=== PATIENT | female | born 1960 | race Caucasian/White ===

== ENCOUNTER → 2018-02-17 | Outpatient (CLI) | payer MEDICAID ==
--- NOTE | 2018-02-17 16:01 | XR ---
EXAMINATION TYPE: XR knee complete LT DATE OF EXAM: 02/17/2018 CLINICAL HISTORY: Left knee pain with no known injury TECHNIQUE: Three views of the left knee are obtained. COMPARISON: None. FINDINGS: There is no acute fracture/dislocation evident in left knee. There is mild medial compartm ent joint space narrowing and small marginal osteophytes of the medial femoral condyle and tibial sharron teau. There is a suspected small suprapatellar joint effusion. The overlying soft tissue appears unr emarkable. IMPRESSION: 1. No acute fracture or dislocation in the left knee. 2. Mild unicompartmental arthrosis of the medial compartment. 2. Suspected small suprapatellar joint effusion.
== END | disposition home or self-care (01) ==
LOC: RADXRMAIN 15:39
PROVIDERS: ATTEND Physician Assistant
DX: M17.12 Unilateral primary osteoarthritis, left knee (principal)

== ENCOUNTER → 2018-03-03 | Outpatient (CLI) | payer MEDICAID ==
--- NOTE | 2018-03-03 09:50 | US ---
EXAMINATION TYPE: US abdomen complete DATE OF EXAM: 03/03/2018 COMPARISON: NONE CLINICAL HISTORY: R74.8 ABN LEVELS OF OTHER SERUM ENZYMES. EXAM MEASUREMENTS: Liver Length: 13.3 cm Gallbladder Wall: Surgically absent CBD: 0.4 cm Spleen: 12.6 cm Right Kidney: 12.2 x 3.8 x 4.9 cm Left Kidney: 12.4 x 5.4 x 5.3 cm Pancreas: partially obscured by bowel gas, portions visualized wnl Liver: mildly heterogeneous Gallbladder: Surgically absent Evidence for sonographic Burrell's sign: no CBD: wnl Spleen: wnl Right Kidney: No hydronephrosis Left Kidney: Inferior pole obscured by bowel gas, Upper IVC: wnl Abd Aorta: wnl No aneurysmal change is seen in visualized aorta. Visualized pancreas is heterogeneous without mass. Evaluation of entire pancreas is suboptimal due to shadowing from overlying bowel gas. Visualized luciana er is heterogeneously hyperechoic without intrahepatic ductal dilatation. Finding likely on basis of diffuse fatty infiltration. Gallbladder is noted surgically absent. Spleen is upper limits of normal in size. IMPRESSION: Slightly heterogeneous hyperechoic appearance of liver is likely on basis of diffuse fatt y infiltration. Underlying hepatocellular disease is not excluded.
== END | disposition home or self-care (01) ==
LOC: RADUSWWP 09:01
PROVIDERS: ATTEND Family Medicine
DX: K76.0 Fatty (change of) liver, not elsewhere classified (principal); R74.8 Abnormal levels of other serum enzymes
CPT/HCPCS: 76700

== ENCOUNTER 2019-03-30 06:36 | Day surgery (SDC) | payer MEDICAID ==
[2019-03-27 13:14] VITALS: BMI 37.1
[~2019-03-30 06:36] MED LIST: ALPRAZolam 0.25 MG TAB PO PRN; ALPRAZolam 0.5 MG TAB PO PRN; NITROGLYCERIN SL TABS 0.4 MG TAB SUBLINGUAL PRN; SODIUM CHLORIDE 0.9% 1,000 ML in EMPTY BAG 1 BAG IV ONE
[2019-03-30] MEDS ORDERED: ASPIRIN 325 MG TAB PO ONE (07:00)
[2019-03-30] MEDS ORDERED: ATORVASTATIN 80 MG TAB PO ONE (07:00)
[2019-03-30 07:24] VITALS: TEMP 98.4
[2019-03-30] MEDS: MIDAZOLAM (PF) 2 MG/2 ML VIAL IV ONE ×2 (08:17→08:23)
[2019-03-30] MEDS ORDERED: LIDOCAINE 1% INJ 10MG/ML (20 ML MDV) SQ ONE (08:23)
[2019-03-30] MEDS ORDERED: amLODIPine 5 MG TAB ONE (08:49)
[2019-03-30] MEDS ORDERED: amLODIPine 5 MG TAB PO ONE (08:51)
[2019-03-30 08:58] LABS: O2 Sat Blood Gas 97.2 %
[2019-03-30 08:58] LABS: O2 Sat Blood Gas 68.5 %
[2019-03-30 08:59] LABS: O2 Sat Blood Gas 70.1 %
[2019-03-30] MEDS ORDERED: IOPAMIDOL-370 100ML BTL INJ ONE (09:00)
[2019-03-30] MEDS ORDERED: SODIUM CHLORIDE 0.9% 1,000 ML IV SCH (09:25)
--- NOTE | 2019-03-30 09:55 | CC ---
CARDIAC CATHETERIZATION REPORT DATE OF SERVICE: 03/30/2019 PROCEDURE: Right and left heart catheterization and coronary angiography. PERFORMED BY: Dr. Sapna Montgomery. Moderate conscious sedation time was 41 minutes. Patient was administered Versed. Oxygen saturation, hemodynamics and EKG were monitored closely. CLINICAL INFORMATION: Mrs. Katerina Crabtree is a 58-year-old lady with a recent diagnosis of aortic stenosis, severe with symptoms of exertional shortness of breath that have worsened recently. It is unclear if she has a bicuspid aortic valve or not because of significant calcification. She has moderate to severe aortic regurgitation and moderate to severe aortic stenosis on echocardiogram, was advised coronary angiography as well as transesophageal echo and brought in for the procedure electively. Risks, benefits, options and rationale were discussed. Patient has an IODINE allergy and she has been appropriately pretreated. PROCEDURE NOTE: Under local anesthesia and strict aseptic precautions, a 6-Estonian introducer was placed in the right femoral artery and 8-Estonian sheath in the right femoral vein. Using a balloon-tipped flotation catheter, I performed right heart catheterization. I obtained thermodilution cardiac output as well as saturations. Subsequently, using standard Chriss catheters, coronary angiography was performed. A pigtail catheter was used to check LV pressure but LV gram was not performed. The sheath was taken out and Angio- Seal used for arterial sheath, manual compression for venous sheath,. FemoStop was applied for 2 hours. Patient tolerated the procedure well without complications. Results were discussed with the patient and family. She has no significant CAD. Normal pressures. Significant aortic stenosis with a peak pullback gradient of 35 mmHg. She will have a TREY and will probably require aortic valve replacement. CARDIAC CATHETERIZATION FINDINGS: The right atrial pressure was 4 mmHg, pulmonary artery pressure was 28/14 with a mean of 20. Right ventricular pressure was 28/4. Pulmonary capillary wedge pressure was 12 mmHg. There was no gradient between left ventricular end-diastolic pressure and wedge pressure. The peak pullback gradient across aortic valve was 35 mmHg. The thermodilution cardiac output was 6.3 L, Nikita cardiac output was 4.5 L, average was 5.4 L. CORONARY ANGIOGRAPHY FINDINGS: RIGHT CORONARY ARTERY: Technically this is a dominant vessel. has no significant disease distally, bifurcates into a good-sized PDA PLV, which have minor irregularities. No significant disease in the right coronary artery. LEFT MAIN CORONARY ARTERY: Very short vessel, free of significant disease that bifurcates into LAD and circumflex. LEFT ANTERIOR DESCENDING CORONARY ARTERY: Good caliber vessel, extends along the anterior wall. No significant disease. Tortuous in the midportion, gives off septal and diagonal branches, runs all the way to the apex. No significant disease in the LAD system. LEFT POSTERIOR CIRCUMFLEX CORONARY ARTERY: This is a good caliber, good distribution vessel, nondominant, gives a single obtuse marginal and then a distal posterolateral branch has minor irregularities, no significant disease. LEFT VENTRICULOGRAM: This was not performed. FINAL IMPRESSION: This patient has normal right-sided pressures. She has severe aortic stenosis with a peak pullback gradient of 35 mmHg across the aortic valve. The thermodilution cardiac output was 6.3 L and Nikita cardiac output was 4.5 L. There is no significant obstructive CAD. She has a right dominant system. RECOMMENDATION: Patient will have a transesophageal echo and then will require elective aortic valve replacement. I would like to see whether she has a bicuspid aortic valve or not since this was not discernible on the transthoracic echo. Findings were discussed with the patient and family and I expect she will be discharged later on today. MMODL / IJN: [id number] /
[2019-03-30] MEDS ORDERED: fentaNYL (PF) 50 MCG/ML 2 ML AMP ONE (12:07)
[2019-03-30] MEDS ORDERED: IV FLUID CONTINUATION 300 ML IV ONE (12:30)
[2019-03-30] MEDS ORDERED: BENZOCAINE SPRAY 1 CAN MUCOUS MEM ONE ×2 (12:31)
[2019-03-30] MEDS ORDERED: fentaNYL (PF) 50 MCG/ML 2 ML AMP IV ONE (12:51)
[2019-03-30] MEDS ORDERED: MIDAZOLAM (PF) 2 MG/2 ML VIAL IV ONE ×2 (12:51→12:54)
--- NOTE | 2019-03-30 13:37 | ECHOT ---
TRANSESOPHAGEAL ECHOCARDIOGRAM Mrs. Crabtree is a 58-year-old female who underwent transesophageal echocardiogram to rule out significant aortic stenosis. The patient was given intravenous sedation with Versed and fentanyl and transesophageal echocardiogram was performed without any complications. FINDINGS: The left ventricular chamber is normal in size with mild degree of left ventricular hypertrophy and normal left ventricular systolic function. Mitral valve morphology is normal. Mild mitral regurgitation is noted. The aortic valve is sclerotic and calcified and it is tricuspid. The aortic valve area is calculated in the range of 1 square centimeter suggestive of severe aortic stenosis. There is a moderate degree of aortic regurgitation noted. There is a mild degree of tricuspid regurgitation noted. Left atrium is normal in size. There is no evidence of thrombus in the left atrial appendage. Pulmonary vein flow is normal. Interatrial septum is intact. IMPRESSION: 1. The aortic valve is sclerotic and calcified and is tricuspid. Aortic valve area is calculated in the range of 1 square centimeter suggestive of severe aortic stenosis. 2. There is mild to moderate aortic regurgitation noted. 3. Mild mitral regurgitation is noted. 4. Left ventricular systolic function is normal. 5. There is no evidence of thrombus in left atrium or atrial appendage. 6. Pulmonary vein systolic flow is normal. MMODL / IJN: [id number] /
[2019-03-30 13:49] VITALS: BP 147/65; PULSE 84; RESP 16
== END 2019-03-30 14:37 | disposition home or self-care (01) ==
LOC: CATHCVL 06:36
PROVIDERS: ATTEND Internal Medicine Interventional Cardiology
DX: I08.3 Combined rheumatic disorders of mitral, aortic and tricuspid valves (principal); E89.0 Postprocedural hypothyroidism; E66.9 Obesity, unspecified; F17.210 Nicotine dependence, cigarettes, uncomplicated; Z79.890 Hormone replacement therapy; Z79.899 Other long term (current) drug therapy; Z91.048 Other nonmedicinal substance allergy status; Z68.37 Body mass index [BMI] 37.0-37.9, adult
CPT/HCPCS: 93312; 93460; 85018; 82810; C1760; C1769 ×3; C1894 ×2; J2001; J3010; Q9967; J2250; 93320; 93325

== ENCOUNTER → 2019-04-24 | Outpatient (CLI) | payer MEDICAID ==
[2019-04-24 09:58] LABS: Anisocytosis Slight; HCT 37.9 % (34.0-46.0); MCH 27.3 pg (25.0-35.0); MCHC 31.6 g/dL (31.0-37.0); MCV 86.6 fL (80.0-100.0); Mean Platelet Volume 7.1; Platelet Count 139 k/uL (150-450); RBC 4.38 m/uL (3.80-5.40); RDW 16.7 % (11.5-15.5); WBC 3.8 k/uL (3.8-10.6)
[2019-04-24 10:05] LABS: ALT 51 U/L (9-52); AST 81 U/L (14-36); African American GFR (CKD) >90 (>60 ml/min/1.73 sqM); Albumin 4.1 g/dL (3.5-5.0); Alkaline Phosphatase 95 U/L (38-126); Anion Gap 10 mmol/L; Blood Urea Nitrogen 15 mg/dL (7-17); Carbon Dioxide 23 mmol/L (22-30); Chloride 108 mmol/L (98-107); Cholesterol 160 mg/dL (<200); Glucose 133 mg/dL (74-99); HDL Cholesterol 31 mg/dL (40-60); LDL Cholesterol,Calculated 108 mg/dL (0-99); Magnesium 1.7 mg/dL (1.6-2.3); Potassium 4.1 mmol/L (3.5-5.1); Sodium 141 mmol/L (137-145); Total Bilirubin 0.8 mg/dL (0.2-1.3); Total Protein 8.3 g/dL (6.3-8.2); Triglycerides 103 mg/dL (<150)
[2019-04-24 10:17] LABS: INR 1.1 (<1.2); Partial Thromboplastin Time 27.6 sec (22.0-30.0); Prothrombin Time 11.6 sec (9.0-12.0)
[2019-04-24 10:25] LABS: Appearance,Urine Clear (Clear); Bacteria,Urine Rare /hpf; Bilirubin,Urine Negative (Negative); Blood,Urine Small (Negative); Color,Urine Yellow; Glucose,Urine (UA) Negative (Negative); Ketones,Urine Negative (Negative); Leukocyte Esterase,Urine Negative (Negative); Mucus,Urine Rare /hpf; Nitrite,Urine Negative (Negative); Protein,Urine Negative (Negative); RBC,Urine 6 /hpf (0-5); Specific Gravity,Urine 1.021 (1.001-1.035); Squamous Epithelial Cell,Urine 2 /hpf (0-4); WBC,Urine 2 /hpf (0-5)
[2019-04-24 11:53] LABS: T4, Free (Free Thyroxine) 1.09 ng/dL (0.78-2.19)
--- NOTE | 2019-04-24 14:52 | US ---
EXAMINATION TYPE: US carotid duplex BILAT DATE OF EXAM: 04/24/2019 COMPARISON: NONE CLINICAL HISTORY: 58-year-old female OPEN HEART. Pre heart surgery. TECHNIQUE: Carotid duplex ultrasound examination. In direct Doppler criteria was utilized. FINDINGS: EXAM MEASUREMENTS: RIGHT: Peak Systolic Velocity (PSV) cm/sec ----- Right CCA: 121.1 ----- Right ICA: 139.5 ----- Right ECA: 143.7 ICA/CCA ratio: 1.2 RIGHT: End Diastole cm/sec ----- Right CCA: 25.7 ----- Right ICA: 25.0 ----- Right ECA: 20.9 LEFT: Peak Systolic Velocity (PSV) cm/sec ----- Left CCA: 139.5 ----- Left ICA: 124.3 ----- Left ECA: 333.9 ICA/CCA ratio: 0.9 LEFT: End Diastole cm/sec ----- Left CCA: 40.7 ----- Left ICA: 38.6 ----- Left ECA: 25.7 VERTEBRALS (direction of flow): Right Vertebral: Antegrade Left Vertebral: Antegrade Rhythm: Normal Elevated velocities in bilateral ECA. Minimal atherosclerotic calcification at the bilateral carotid bifurcations. IMPRESSION: 1. Slightly elevated velocities in the proximal right ICA likely secondary to turbulent flow. Other D oppler criteria for the right ICA are within the normal range. Hemodynamically significant stenosis appreciated in either ICA. 2. Elevated velocities in the left greater than right ECA suggest proximal ECA stenoses. Criteria for Assigning % of Stenosis / Diameter reduction (Estimation based on the indirect measurements of the internal carotid artery velocities (ICA PSV). 1. Normal (no stenosis)=ICA PSV < 125 cm/s: ratio < 2.0: ICA EDV<40 cm/s. 2. Less than 50% stenosis=ICA PSV < 125 cm/s: ratio < 2.0: ICA EDV<40 cm/s. 3. 50 to 69% stenosis=ICA PSV of 125 to 230 cm/s: ration 2.0 ? 4.0: ICA EDV 40-100 cm/s. 4. Greater than 70% stenosis to near occlusion= ICA PSV > 230 cm/s: ratio > 4.0: ICA EDV > 100 cm/s. 5. Near occlusion= ICA PSV velocities may be low or undetectable: variable ratio and ICA EDV. 6. Total occlusion=unable to detect flow.
--- NOTE | 2019-04-24 15:25 | XR ---
EXAMINATION TYPE: XR chest 2V DATE OF EXAM: 04/24/2019 COMPARISON: None HISTORY: 58-year-old female presurgical evaluation before open heart surgery TECHNIQUE: Frontal and lateral views FINDINGS: Heart normal size. Mild interstitial prominence has a chronic appearance. No consolidation or pleural effusion. Aorta and pulmonary vasculature within normal limits. Mild endplate spondylosis throughout the thoracic spine. IMPRESSION: Chronic appearing changes without acute cardiopulmonary process.
[2019-04-24 16:43] LABS: Hemoglobin A1C 5.5 % (4.0-6.0)
[2019-04-24 17:07] LABS: Hepatitis A Antibody IgM Non-Reactive (Non-Reactive); Hepatitis B Core IgM Non-Reactive (Non-Reactive)
--- NOTE | 2019-04-25 09:47 | P.VSCSTY ---
Greater Saphenous Vein Mapping This is bilateral lower extremity greater saphenous vein mapping. Date of service: 04/24/2019 Vein quality and ultrasound appearance: No obvious endoluminal thrombus or wall changes are seen. Vein size groin right : 5.0 x 4.0 groin left: 7.9 x 7.2 High thigh right: 5.1 x 4.0 high thigh left: 5.4 x 4.4 Mid thigh right: 1.7 x 1.2 mid thigh left: 5.4 x 3.8 Above-knee right: 2.0 x 1.4 above-knee left: 5.5 x 4.3 Below knee right: 2.7 x 2.1 below-knee left: 4.0 x 3.9 Mid calf right: 3.1 x 2.1 mid calf left: 3.6 x 2.5 Ankle right: 3.0 x 2.1 ankle left: 3.5 x 2.1 Impression: Usable greater saphenous vein bilaterally. The left is much more consistent on the right. There are a couple of areas on the right that are probably still to small for use as conduit..
== END | disposition home or self-care (01) ==
LOC: LABPAT 09:10
PROVIDERS: ATTEND Thoracic Surgery (Cardiothoracic Vascular Surgery)
DX: I35.0 Nonrheumatic aortic (valve) stenosis (principal); E07.9 Disorder of thyroid, unspecified; I10 Essential (primary) hypertension; R06.02 Shortness of breath; R16.0 Hepatomegaly, not elsewhere classified; Z79.01 Long term (current) use of anticoagulants
CPT/HCPCS: 71046; 80053; 80061; 80074; 81001; 83036; 83735; 84439; 84443; 85027; 85610; 85730; 87070; 87086; 93880; 93970; 94150

== ENCOUNTER 2019-04-30 05:47 | Inpatient (IN) | payer MEDICAID ==
--- NOTE | 2019-04-24 11:43 | P.PN ---
Progress Note - Text Progress Note Date: 04/24/19 5 m walk test was completed with the patient. Time 1: 3.33 seconds, time 2: 3.36 seconds, time 3:2.91 seconds. STS risk score has been calculated in discussed with the patient by Dr. Pipo Hines.
[~2019-04-30 05:47] MED LIST changes: +ALBUMIN HUMAN 25% 50 ML IV ONE; +ALBUMIN HUMAN 5% 250 ML IVPB ONE; -ALPRAZolam 0.25 MG TAB PO PRN; -ALPRAZolam 0.5 MG TAB PO PRN; +ASPIRIN 325 MG TAB PO ONE; +ATORVASTATIN 10 MG TAB PO ONE; +CALCIUM CHLORIDE 100 MG/ML 10 ML SYRINGE IV ONE; +CHLORHEXIDINE GLUCONATE 15 ML CUP MUCOUS MEM ONE; +CLEVIDIPINE BUTYRATE 25 MG in EMPTY BAG 1 BAG IV ONE; +DEXTROSE 5% IN WATER 1,000 ML with POTASSIUM CHLORIDE 110 MEQ, MAGNESIUM SULFATE 16 MEQ... IV ONE; +DEXTROSE 5% IN WATER 1,000 ML with POTASSIUM CHLORIDE 25 MEQ, SODIUM CHLORIDE 2.5MEQ/ML... IRRIGATION ONE; +HEPARIN SODIUM 1,000 UN/ML (10ML VL) IV ONE; +HEPARIN SODIUM,PORCINE 5,000 UNIT in SODIUM CHLORIDE 0.9% 500 ML 500 ML IV ONE; +INSULIN REGULAR 100 UNIT in SODIUM CHLORIDE 0.9% 100 ML IV ONE; +LACTATED RINGERS 1,000 ML IV ONE; +MAGNESIUM SULFATE MG 500 MG/ML IV ONE; +MANNITOL 25% 12.5 GM/50 ML VIAL IV ONE; +METOPROLOL TARTRATE 12.5 MG TAB PO ONE; +MUPIROCIN 2% OINT 22 GM TUBE NASAL ONE; +NITROGLYCERIN SL TABS 0.4 MG TAB SUBLINGUAL ONE; -NITROGLYCERIN SL TABS 0.4 MG TAB SUBLINGUAL PRN; +NITROGLYCERIN-D5W PMX 25 MG/250 ML BTL IV ONE; +NOREPINEPHRINE 4 MG in SODIUM CHLORIDE 0.9% 250 ML IV ONE; +PAPAVERINE 360 MG in SODIUM CHLORIDE 0.9% 90 ML IV ONE; +PHENYLEPHRINE 10 MG/ML VIAL IV ONE; +PHENYLEPHRINE 40 MG in SODIUM CHLORIDE 0.9% 250 ML IV ONE; +PROPOFOL 1,000 MG/100 ML VIAL IV ONE; +PROTAMINE SULFATE 10 MG/ML 25 ML VIAL IV ONE; +PROTAMINE SULFATE 250 MG in EMPTY BAG 1 BAG IV ONE; +SODIUM BICARB 8.4% 50 ML SYR (1 MEQ/ML) IV ONE; +SODIUM CHLORIDE 0.9% 1,000 ML IV ONE; -SODIUM CHLORIDE 0.9% 1,000 ML in EMPTY BAG 1 BAG IV ONE; +TRANEXAMIC ACID 2,000 MG in SODIUM CHLORIDE 0.9% 80 ML IV ONE; +VANCOMYCIN 1,000 MG VIAL MISCELLANE ONE; +ceFAZolin 2,000 MG in SODIUM CHLORIDE 0.9% 30 ML IVPB ONE
[2019-04-30] MEDS ORDERED: LIDOCAINE 1% 20 ML VIAL (10MG/ML) FOR IV START INTRADERMA ONE (06:15)
[2019-04-30] MEDS ORDERED: PROTAMINE SULFATE 10 MG/ML 25 ML VIAL IV ONE (08:06)
[2019-04-30] MEDS ORDERED: fentaNYL (PF) 50 MCG/ML 50 ML VIAL ONE (08:06)
[2019-04-30] MEDS ORDERED: PROPOFOL 10 MG/ML 20 ML VIAL IV ONE (08:06)
[2019-04-30] MEDS ORDERED: SODIUM CHLORIDE 0.9% 250 ML BAG ONE (08:06)
[2019-04-30] MEDS ORDERED: TRANEXAMIC ACID 1,000 MG/10 ML VIAL ONE (08:06)
[2019-04-30] MEDS ORDERED: VECURONIUM 10 MG VIAL IV ONE (08:06)
[2019-04-30] MEDS ORDERED: MAGNESIUM SULFATE 4 MEQ/ML 10ML VIAL ONE (08:06)
[2019-04-30] MEDS ORDERED: HEPARIN SODIUM,PORCINE 10,000 UNIT/ML 1 ML VIAL ONE (08:06)
[2019-04-30] MEDS ORDERED: SODIUM CHLORIDE 0.9% IRRIG 1,000 ML BTL IRRIGATION ONE (08:06)
[2019-04-30] MEDS ORDERED: MIDAZOLAM 2 MG/2 ML VIAL ONE (08:06)
[2019-04-30] MEDS ORDERED: fentaNYL (PF) 50 MCG/ML 2 ML AMP ONE (08:06)
[2019-04-30] MEDS ORDERED: LIDOCAINE 2% SYG (PF) 100 MG/5 ML ONE (08:06)
[2019-04-30] MEDS ORDERED: ELECTROLYTE-R (PH 7.4) 1,000 ML IV.SOLN IV ONE (08:06)
[2019-04-30 09:10] LABS: ABG Base Excess 0.9 mmol/L; ABG Glucose Whole Blood 105 mg/dL (75-99); ABG HCO3 25 mmol/L (21-25); ABG Hematocrit 31 % (34.0-46.0); ABG Ionized Calcium 4.6 mg/dL (4.5-5.3); ABG Lactic Acid Whole Blood 1.6 mmol/L (0.5-1.6); ABG Oxygen Saturation 99.8 % (94-97); ABG PCO2 38 mmHg (35-45); ABG PH 7.43 (7.35-7.45); ABG PO2 226 mmHg (83-108); ABG Sodium Whole Blood 140 mmol/L (135-146); ABG TCO2 26 mmol/L (19-24)
[2019-04-30 09:57] LABS: ABG Base Excess 0.8 mmol/L; ABG Glucose Whole Blood 107 mg/dL (75-99); ABG HCO3 25 mmol/L (21-25); ABG Hematocrit 30 % (34.0-46.0); ABG Ionized Calcium 4.5 mg/dL (4.5-5.3); ABG Oxygen Saturation 99.9 % (94-97); ABG PCO2 38 mmHg (35-45); ABG PH 7.43 (7.35-7.45); ABG PO2 261 mmHg (83-108); ABG Potassium Whole Blood 4.5 mmol/L (3.4-4.5); ABG Sodium Whole Blood 139 mmol/L (135-146); ABG TCO2 26 mmol/L (19-24)
[2019-04-30 10:28] LABS: ABG Base Excess -0.7 mmol/L; ABG Glucose Whole Blood 178 mg/dL (75-99); ABG HCO3 24 mmol/L (21-25); ABG Hematocrit 26 % (34.0-46.0); ABG Ionized Calcium 4.2 mg/dL (4.5-5.3); ABG Oxygen Saturation 99.8 % (94-97); ABG PCO2 41 mmHg (35-45); ABG PH 7.38 (7.35-7.45); ABG PO2 260 mmHg (83-108); ABG Potassium Whole Blood 5.3 mmol/L (3.4-4.5); ABG Sodium Whole Blood 134 mmol/L (135-146); ABG TCO2 26 mmol/L (19-24)
[2019-04-30 11:11] LABS: ABG Glucose Whole Blood 176 mg/dL (75-99); ABG HCO3 23 mmol/L (21-25); ABG Hematocrit 25 % (34.0-46.0); ABG Ionized Calcium 4.2 mg/dL (4.5-5.3); ABG PCO2 42 mmHg (35-45); ABG PH 7.36 (7.35-7.45); ABG PO2 360 mmHg (83-108); ABG Potassium Whole Blood 5.1 mmol/L (3.4-4.5); ABG Sodium Whole Blood 135 mmol/L (135-146); ABG TCO2 25 mmol/L (19-24)
[2019-04-30 12:01] LABS: ABG Base Excess -1.9 mmol/L; ABG Glucose Whole Blood 143 mg/dL (75-99); ABG HCO3 24 mmol/L (21-25); ABG Hematocrit 29 % (34.0-46.0); ABG Ionized Calcium 4.6 mg/dL (4.5-5.3); ABG Oxygen Saturation 99.7 % (94-97); ABG PCO2 44 mmHg (35-45); ABG PH 7.35 (7.35-7.45); ABG PO2 214 mmHg (83-108); ABG Sodium Whole Blood 138 mmol/L (135-146); ABG TCO2 25 mmol/L (19-24)
[2019-04-30 12:15] LABS: ABG Lactic Acid Whole Blood 2.5 mmol/L (0.5-1.6)
[2019-04-30 12:16] LABS: ABG Lactic Acid Whole Blood 2.3 mmol/L (0.5-1.6)
[2019-04-30 12:17] LABS: ABG Lactic Acid Whole Blood 3.1 mmol/L (0.5-1.6)
[2019-04-30 12:18] LABS: ABG Lactic Acid Whole Blood 2.4 mmol/L (0.5-1.6)
[2019-04-30] MEDS ORDERED: ONDANSETRON 4 MG/2 ML VIAL IVP PRN (12:36)
[2019-04-30] MEDS ORDERED: BENZOCAINE/MENTHOL LOZENG 1 EACH LOZENGE MUCOUS MEM PRN (12:36)
[2019-04-30] MEDS ORDERED: METOCLOPRAMIDE 5 MG/ML 2 ML VIAL IVP PRN (12:36)
[2019-04-30] MEDS ORDERED: AMIODARONE 300 MG in DEXTROSE 5% IN WATER 250 ML IV PRN ×2 (12:36)
[2019-04-30] MEDS ORDERED: Magnesium Replacement Protocol 1 EACH MISC MISCELLANE PRN (12:36)
[2019-04-30] MEDS ORDERED: PROPOFOL 1,000 MG in EMPTY BAG 1 BAG IV SCH (12:36)
[2019-04-30] MEDS ORDERED: AMIODARONE 360 MG in DEXTROSE 5% IN WATER 200 ML IV PRN ×2 (12:36)
[2019-04-30] MEDS ORDERED: DEXTROSE 5% IN WATER 100 ML with AMIODARONE 150 MG IV PRN (12:36)
[2019-04-30] MEDS ORDERED: Phosphorus Replacement Protoco 1 EACH MISC MISCELLANE PRN (12:36)
[2019-04-30] MEDS ORDERED: IPRATROPIUM-ALBUTEROL 3 ML NEB INHALATION PRN (12:36)
[2019-04-30] MEDS ORDERED: CALCIUM GLUCONATE 2 GM in SODIUM CHLORIDE 0.9% 100 ML IVPB PRN (12:36)
[2019-04-30] MEDS ORDERED: Potassium Replacement Protocol 1 EACH MISC MISCELLANE PRN (12:36)
[2019-04-30] MEDS ORDERED: LACTATED RINGERS 1,000 ML IV SCH (12:36)
[2019-04-30 12:41] LABS: Glucose,Whole Blood 114 mg/dL (75-99)
[2019-04-30 12:56] LABS: INR 1.4 (<1.2); Partial Thromboplastin Time 29.7 sec (22.0-30.0); Prothrombin Time 14.1 sec (9.0-12.0)
[2019-04-30 13:05] LABS: ABG Base Excess 0.3 mmol/L; ABG HCO3 27 mmol/L (21-25); ABG PCO2 60 mmHg (35-45); ABG PH 7.27 (7.35-7.45); ABG PO2 >400 mmHg (83-108); ABG TCO2 29 mmol/L (19-24); Allen Test Performed? Yes
[2019-04-30 13:06] LABS: Ionized Calcium 4.9 mg/dL (4.5-5.3)
[2019-04-30] MEDS: CLEVIDIPINE BUTYRATE 25 MG in EMPTY BAG 1 BAG IV SCH ×2 (13:08→16:25)
[2019-04-30 13:13] LABS: ALT 86 U/L (9-52); AST 155 U/L (14-36); African American GFR (CKD) >90 (>60 ml/min/1.73 sqM); Albumin 2.7 g/dL (3.5-5.0); Alkaline Phosphatase 49 U/L (38-126); Anion Gap 6 mmol/L; Blood Urea Nitrogen 11 mg/dL (7-17); Calcium 8.4 mg/dL (8.4-10.2); Carbon Dioxide 26 mmol/L (22-30); Chloride 106 mmol/L (98-107); Glucose 115 mg/dL (74-99); Magnesium 2.3 mg/dL (1.6-2.3); Sodium 138 mmol/L (137-145); Total Bilirubin 0.8 mg/dL (0.2-1.3); Total Protein 5.4 g/dL (6.3-8.2)
--- NOTE | 2019-04-30 13:15 | OP ---
OPERATIVE REPORT DATE OF THE OPERATION: 04/30/2019 ATTENDING SURGEON: Dr. Pipo Hines. ASSISTANTS: 1. JACKELYN Mcginnis. 2. Alon Thomas NP. 3. Bennett. PREOPERATIVE DIAGNOSIS: Critical aortic stenosis. POSTOPERATIVE DIAGNOSIS: Critical aortic stenosis PROCEDURE: Aortic valve replacement with a #23 mm Simon Inspiris bioprosthetic aortic valve, clip ligation of the left atrial appendage with a #35 mm AtriClip and intraoperative TREY. ANESTHESIA: General. BLOOD LOSS: 500 mL. SUMMARY: Patient brought to the operative placed in supine position. From insertion of general tracheal anesthetic, placed in the [place]-Fredrick catheter arterial line, adequate IV access, Vizcarra catheter, patient carefully prepped and draped in a sterile fashion using chlorhexidine paint and sterile towels. A midline incision in the chest made, sternum divided, pericardium was opened. Heart size was mildly enlarged. Aorta was soft but did have a few calcific plaques present. Patient was then heparinized to an AST of greater than 4 and aorta was carefully cannulated and right atrium was cannulated with a venous cannula, integrated retrograde cardioplegic catheters was positioned in the ascending aorta and the coronary sinus. Patient was placed on bypass, cross-clamp placed, heart arrested with 1 L of antegrade followed by 500 mL retrograde cardioplegia. Retrograde cardioplegia was delivered 300-500 mL at end of each 20 minute interval. First, the left atrial appendage was measured. A 35 mm AtriClip was secured at the base of obliterating the left atrial appendage. A transverse aortotomy incision was made 2 cm distal to the takeoff of the right coronary artery. A handheld retractor was placed. The aortic valve was trileaflet, extremely heavily calcified. There was some calcium plaques present on the root. Care was taken to expose and remove some of these plaques that were loosened. The leaflets were then excised. The anulus debrided and was irrigated out copiously with 2-3 L of cold saline. It sized to a 23 mm Simon Inspiris bioprosthetic aortic valve. The valve was prepared in usual fashion. A 2-0 Tycron pledgetted sutures were placed circumferentially ventricularly based. These were then passed through the sewing cuff of the valve. The valve was seated and seated well. All sutures were then secured and tied and cut using the core knot ligature system device. At this point, once the valve was seated and seated well, the aortotomy incision was closed in a double layered pledgeted 4-0 Prolene vertical mattress followed by an [id number] stitch on both sides. Patient was placed head down, complete de-airing maneuvers performed 3 times. One liter of warm blood retrograde cardioplegia was run, cross-clamp was then removed. Once in sinus rhythm, patient was brought off bypass, came off bypass uneventfully with good hemodynamics, protamine delivered, patient decannulated, ventricular pacing wires were placed, mediastinal right pleural chest tubes were placed. At this point, the sternum was closed with seven #6 sternal wires. Skin and subcutaneous tissue, fascia closed in 3 layers. No complications. Patient tolerated the procedure well and was taken to the cardiovascular intensive care unit in stable condition. MMCHEL / NICOLE: [id number] /
--- NOTE | 2019-04-30 13:15 | XR ---
EXAMINATION TYPE: XR chest 1V portable DATE OF EXAM: 04/30/2019 COMPARISON: Prior chest x-ray 04/24/2019 HISTORY: Postop cardiac surgery TECHNIQUE: Single frontal view of the chest is obtained. FINDINGS: Patient is post median sternotomy, aortic valve replacement, atrial appendage clipping. En dotracheal tube, orogastric tube, median sternal drain, right jugular central venous catheter, right chest tube, epicardial leads are overlying appropriate positions. There is no evident pneumothorax or pleural effusion. Heart size may be accentuated by rotation. Surgical clips present in the right upp er quadrant. IMPRESSION: Satisfactory postoperative chest x-ray.
[2019-04-30 13:17] LABS: Anisocytosis Slight; Basophils % (A) 0 %; Eosinophils # (A) 0.1 k/uL (0-0.7); Eosinophils % (A) 1 %; HCT 28.8 % (34.0-46.0); Lymphocytes # (A) 1.1 k/uL (1.0-4.8); Lymphocytes % (A) 22 %; MCHC 32.5 g/dL (31.0-37.0); MCV 89.2 fL (80.0-100.0); Mean Platelet Volume 8.2; Monocytes # (A) 0.2 k/uL (0-1.0); Monocytes % (A) 4 %; Neutrophils # (A) 3.8 k/uL (1.3-7.7); Neutrophils % (A) 72 %; RBC 3.23 m/uL (3.80-5.40); RDW 16.3 % (11.5-15.5); WBC 5.3 k/uL (3.8-10.6)
[2019-04-30] MEDS ORDERED: hydrALAZINE HCL 20 MG/ML 1 ML VIAL IVP PRN (13:17)
[2019-04-30 13:19] LABS: Glucose,Whole Blood 100 mg/dL (75-99)
[2019-04-30 13:29] LABS: HGB 9.4 gm/dL (11.4-16.0)
[2019-04-30] MEDS: SODIUM CHLORIDE 0.9% 1,000 ML IV SCH (13:30)
--- NOTE | 2019-04-30 13:58 | P.CRDCN ---
History of Present Illness Consult date: 04/30/19 Requesting physician: Pipo Hines Reason for Consult (text): Status post aortic valve replacement Chief complaint: Aortic stenosis/status post aortic valve replacement History of present illness: This is a 58-year-old female with known history of hypertension, nicotine dependence, who is status post aortic valve replacement with a #23 mm Simon Inspiris bioprosthetic aortic valve, and clip ligation of the left atrial appendage. Patient was seen and examined in the intensive care unit, the back from OR approximately one half hour ago. Chest x-ray showed satisfactory postoperative chest x-ray. Chest tube is draining appropriately, Vizcarra catheter in place and patient is putting out adequate amounts of urine. Blood pressure 127/60 with a heart rate in the 70s, afebrile. White blood cell count 5.3, hemoglobin 9.4, sodium 138, potassium 4.0, BUN 11 and creatinine 0.7. AST 155 ALT 86 total protein 5.4 albumin 2.7. Currently in a normal sinus rhythm on the monitor. Past Medical History Past Medical History: Chest Pain / Angina, Hypertension, Liver Disease, Thyroid Disorder Additional Past Medical History / Comment(s): SOB, palpitations, heart murmur, enlarged/fatty liver, anemia History of Any Multi-Drug Resistant Organisms: None Reported Past Surgical History: Appendectomy, Cholecystectomy, Heart Catheterization, Orthopedic Surgery, Tubal Ligation Additional Past Surgical History / Comment(s): TREY,thyroidectomy, bunionectomy rt foot Past Anesthesia/Blood Transfusion Reactions: Postoperative Nausea & Vomiting (PONV) Additional Past Anesthesia/Blood Transfusion Reaction / Comment(s): no hx blood transfusion Smoking Status: Former smoker - Past Family History Mother Family Medical History: No Reported History Medications and Allergies Home Medications Medication Instructions Recorded Confirmed Type Cholecalciferol (Vitamin D3) 2,000 unit PO DAILY 03/27/19 04/30/19 History [Vitamin D3] Citalopram Hydrobromide [CeleXA] 40 mg PO QAM 03/27/19 04/30/19 History Famotidine [Pepcid] 20 mg PO BID 03/27/19 04/30/19 History Ferrous Sulfate [Iron] 325 mg PO BID 03/27/19 04/30/19 History Levothyroxine Sodium [Synthroid] 125 mcg PO QAM 03/27/19 04/30/19 History HYDROcodone/APAP 5-325MG [[place] 1 tab PO Q6HR PRN 04/24/19 04/30/19 History 5-325] amLODIPine [Norvasc] 5 mg PO HS 04/24/19 04/30/19 History Aspirin 325 tab PO DAILY 04/30/19 04/30/19 History Allergies Allergy/AdvReac Type Severity Reaction Status Date / Time Iodinated Contrast- Oral and Allergy Severe Vomiting/ra Verified 04/30/19 13:03 IV Dye sh/itching latex Allergy Itching/queta Verified 04/30/19 13:03 h adhesive tape Allergy Itching/queta Uncoded 03/27/19 13:15 h Physical Exam Vitals: Vital Signs Temp Pulse Resp BP BP Pulse Ox 04/30/19 06:05 97.1 F L 75 16 127/62 127/67 97 Intake and Output 04/29/19 04/30/19 04/30/19 22:59 06:59 14:59 Intake Total 100 31 Output Total 2400 Balance 100 -2369 Intake: IV 100 31 Output: Urine 400 Estimated Blood Loss 2000 HEAD: Normocephalic/atraumatic. EYES: Normal reaction of pupils, equal size. Conjunctiva pink, sclera white. NOSE: Clear with pink turbinates. THROAT: No erythema or exudates. NECK: No masses, no JVD, no thyroid enlargement, no adenopathy. CHEST: No chest wall deformity. Symmetrical expansion. Midsternal incision is clean dry and intact, covered with surgical dressing, chest tubes with small sonya unt of serosanguineous output in the [place], with no air leak LUNGS: Equal air entry with no crackles, wheeze, rhonchi or dullness, anteriorly. CVS: Regular rate and rhythm, normal S1 and S2, no gallops, no murmurs, no rubs ABDOMEN: Soft, nontender. No hepatosplenomegaly, normal bowel sounds, no guarding or rigidity. EXTREMITIES: No clubbing, no edema, no cyanosis, 2+ pulses and upper and lower extremities. MUSCULOSKELETAL: Muscle strength and tone normal. SPINE: No scoliosis or deformity SKIN: No rashes CENTRAL NERVOUS SYSTEM: Sedated, intubated No focal deficits, tone is normal in all 4 extremities. Results 04/30/19 12:39 04/30/19 12:39 Cardiac Enzymes 04/30/19 Range/Units 12:39 AST 155 H (14-36) U/L Coagulation 04/30/19 Range/Units 12:39 PT 14.1 H (9.0-12.0) sec APTT 29.7 (22.0-30.0) sec CBC 04/30/19 Range/Units 12:39 WBC 5.3 (3.8-10.6) k/uL RBC 3.23 L (3.80-5.40) m/uL Hgb 9.4 L D (11.4-16.0) gm/dL Hct 28.8 L (34.0-46.0) % Comprehensive Metabolic Panel 04/30/19 Range/Units 12:39 Sodium 138 (137-145) mmol/L Potassium 4.0 (3.5-5.1) mmol/L Chloride 106 (98-107) mmol/L Carbon Dioxide 26 (22-30) mmol/L BUN 11 (7-17) mg/dL Creatinine 0.71 (0.52-1.04) mg/dL Glucose 115 H (74-99) mg/dL Calcium 8.4 (8.4-10.2) mg/dL AST 155 H (14-36) U/L ALT 86 H (9-52) U/L Alkaline Phosphatase 49 (38-126) U/L Total Protein 5.4 L (6.3-8.2) g/dL Albumin 2.7 L (3.5-5.0) g/dL Current Medications Generic Name Dose Route Start Last Admin Trade Name Freq PRN Reason Stop Dose Admin Hydrocodone Bitart/Acetaminophen 2 each 05/01/19 00:18 [place] 5-325 PO Q4HR PRN Severe Pain Hydrocodone Bitart/Acetaminophen 1 each 05/01/19 00:18 [place] 5-325 PO Q4HR PRN Moderate Pain Albuterol/Ipratropium 3 ml 04/30/19 12:36 Duoneb 0.5 Mg-3 Mg/3 Ml Soln INHALATION RT-Q2H PRN Shortness Of Breath Or Wheezing Albuterol/Ipratropium 3 ml 04/30/19 16:00 Duoneb 0.5 Mg-3 Mg/3 Ml Soln INHALATION 05/01/19 00:01 RT-Q4H LATRELL Albuterol/Ipratropium 3 ml 05/01/19 08:00 Duoneb 0.5 Mg-3 Mg/3 Ml Soln INHALATION RT-QID [facility] Aspirin 325 mg 05/01/19 09:00 Aspirin PO DAILY [facility] Benzocaine/Menthol 1 each 04/30/19 12:36 Cepacol Lozenge MUCOUS MEM Q2H PRN Sore Throat Bisacodyl 10 mg 05/01/19 09:00 Dulcolax RECTAL DAILY PRN Constipation Cholecalciferol 2,000 unit 05/01/19 09:00 Vitamin D3 (25 Mcg = 1000 Iu) PO DAILY [facility] Citalopram Hydrobromide 40 mg 05/01/19 09:00 Celexa PO QAM [facility] Clopidogrel Bisulfate 75 mg 05/01/19 09:00 Plavix PO DAILY [facility] Ferrous Sulfate 325 mg 04/30/19 21:00 Feosol PO BID [facility] Heparin Sodium (Porcine) 5,000 unit 04/30/19 20:00 Heparin SQ Q8H [facility] Hydralazine HCl 10 mg 04/30/19 13:17 Apresoline IVP Q4HR PRN Blood Pressure - High Acetaminophen 1,000 mg/ IV 100 mls @ 400 mls/hr 04/30/19 18:00 Solution IVPB 05/01/19 00:14 Q6HR [facility] Albumin Human 250 ml/ IV 250 mls @ 250 mls/hr 04/30/19 12:36 Solution IVPB 05/02/19 12:37 Q1HR PRN For Volume Amiodarone HCl 150 mg/ 103 mls @ 618 mls/hr 04/30/19 12:36 Dextrose/Water IV .Q10M PRN A.FIB/FLUTTER Protocol Amiodarone HCl 360 mg/ 200 mls @ 33.333 mls/hr 04/30/19 12:36 Dextrose/Water IV .Q6H PRN A.FIB/FLUTTER Protocol 1 MG/MIN Amiodarone HCl 300 mg/ 250 mls @ 25 mls/hr 04/30/19 12:36 Dextrose/Water IV .Q10H PRN A.FIB/FLUTTER Protocol 0.5 MG/MIN Calcium Gluconate 2 gm/ Sodium 120 mls @ 100 mls/hr 04/30/19 12:36 Chloride IVPB ONCE PRN Ionized Calcium less than 4.4 Cefazolin Sodium 2 gm/ Sodium 50 mls @ 100 mls/hr 04/30/19 16:00 Chloride IVPB Q8HR [facility] Clevidipine 25 mg/ IV Solution 50 mls @ 2 mls/hr 04/30/19 12:36 IV .Q24H [facility] Protocol 1 MG/HR Propofol 1,000 mg/ IV Solution 100 mls @ 0 mls/hr 04/30/19 12:36 IV .Q0M [facility] Protocol Titrate Sodium Chloride 1,000 mls @ 50 mls/hr 04/30/19 13:30 Saline 0.9% IV .Q20H [facility] Levothyroxine Sodium 125 mcg 05/01/19 06:30 Synthroid PO DAILY@0630 [facility] Magnesium Hydroxide 2,400 mg 05/01/19 09:00 Milk Of Magnesia PO BID PRN Constipation Metoclopramide HCl 10 mg 04/30/19 12:36 Reglan IVP Q4H PRN Nausea And Vomiting Metoprolol Tartrate 12.5 mg 05/01/19 09:00 Lopressor PO BID [facility] Miscellaneous Information 1 each 04/30/19 12:36 Magnesium Per Protocol MISCELLANE DAILY PRN Per Protocol Protocol Miscellaneous Information 1 each 04/30/19 12:36 Phosphorus Per Protocol MISCELLANE DAILY PRN Per Protocol Protocol Miscellaneous Information 1 each 04/30/19 12:36 Potassium Per Protocol MISCELLANE DAILY PRN Per Protocol Protocol Mupirocin 1 applic 04/30/19 21:00 Bactroban Oint NASAL 05/03/19 21:01 BID [facility] Ondansetron HCl 4 mg 04/30/19 12:36 Zofran IVP Q6HR PRN Nausea And Vomiting Oxycodone HCl 10 mg 04/30/19 12:36 Oxyir PO 05/01/19 00:18 Q4H PRN Severe Pain Oxycodone HCl 5 mg 04/30/19 12:36 Oxyir PO 05/01/19 00:18 Q4H PRN Moderate Pain Pantoprazole Sodium 40 mg 05/01/19 09:00 Protonix IVP DAILY [facility] Senna/Docusate Sodium 2 each 05/01/19 21:00 Senokot-S PO HS [facility] Sodium Chloride 10 ml 04/30/19 21:00 Saline Flush IV BID [facility] Intake and Output 04/29/19 04/30/19 04/30/19 22:59 06:59 14:59 Intake Total 100 31 Output Total 2400 Balance 100 -2369 Intake: IV 100 31 Output: Urine 400 Estimated Blood Loss 199904/30/19 12:39 04/30/19 12:39 EKG Interpretations (text) EKG shows normal sinus rhythm with no acute changes. Assessment and Plan Plan: Assessment and plan #1 status post aortic valve replacement with a #23 mm Simon Inspiris bioprosthetic aortic valve, clip ligation of left atrial appendage #2 hypertension Plan From cardiology's perspective, we will continue with current medication. Hemodynamically the patient is stable, remaining in normal sinus rhythm. We will continue to follow. DNP note has been reviewed, I agree with a documented findings and plan of care. Patient was seen and examined.
[2019-04-30 14:05] LABS: Glucose,Whole Blood 103 mg/dL (75-99)
[2019-04-30 14:54] LABS: Platelet Count 94 k/uL (150-450)
[2019-04-30 14:55] LABS: Poikilocytosis (M) Present
[2019-04-30 15:15] LABS: Glucose,Whole Blood 142 mg/dL (75-99)
--- NOTE | 2019-04-30 15:23 | P.CNPUL ---
History of Present Illness Consult date: 04/30/19 Requesting physician: Pipo Hines Reason for consult: other (Status post aortic valve replacement, on mechanical ventilation.) Chief complaint: Status post aortic valve replacement History of present illness: This is a 58-year-old female with known history of hypertension, fatty liver, hypothyroidism, patient was recently diagnosed with severe aortic stenosis, aortic valve area was calculated to be in the range of 1 cm there was also evidence of [id number] aortic regurgitation, there was no evidence of significant coronary artery disease on her most recent cardiac catheterization. Patient underwent elective aortic valve replacement today, and postoperatively she was on mechanical ventilation, hence I was asked to see her on consultation. Presently the patient is on SIMV mode of mechanical ventilation, rate of 18, tidal volume of 400, FiO2 is 40%, and PEEP of 5. ABG showed a pO2 of 214 pCO2 of 44 pH of 7.35. Postoperative chest x-ray showed adequate placement of the endotracheal tube, orogastric tube, and a right sided chest tube. There was no evidence of pneumothorax. It was basically a satisfactory postoperative chest x-ray. Review of Systems ROS unobtainable: due to endotracheal tube Past Medical History Past Medical History: Chest Pain / Angina, Hypertension, Liver Disease, Thyroid Disorder Additional Past Medical History / Comment(s): SOB, palpitations, heart murmur, enlarged/fatty liver, anemia History of Any Multi-Drug Resistant Organisms: None Reported Past Surgical History: Appendectomy, Cholecystectomy, Heart Catheterization, Orthopedic Surgery, Tubal Ligation Additional Past Surgical History / Comment(s): TREY,thyroidectomy, bunionectomy rt foot Past Anesthesia/Blood Transfusion Reactions: Postoperative Nausea & Vomiting (PONV) Additional Past Anesthesia/Blood Transfusion Reaction / Comment(s): no hx blood transfusion Smoking Status: Former smoker - Past Family History Mother Family Medical History: No Reported History Medications and Allergies Home Medications Medication Instructions Recorded Confirmed Type Cholecalciferol (Vitamin D3) 2,000 unit PO DAILY 03/27/19 04/30/19 History [Vitamin D3] Citalopram Hydrobromide [CeleXA] 40 mg PO QAM 03/27/19 04/30/19 History Famotidine [Pepcid] 20 mg PO BID 03/27/19 04/30/19 History Ferrous Sulfate [Iron] 325 mg PO BID 03/27/19 04/30/19 History Levothyroxine Sodium [Synthroid] 125 mcg PO QAM 03/27/19 04/30/19 History HYDROcodone/APAP 5-325MG [[place] 1 tab PO Q6HR PRN 04/24/19 04/30/19 History 5-325] amLODIPine [Norvasc] 5 mg PO HS 04/24/19 04/30/19 History Aspirin 325 tab PO DAILY 04/30/19 04/30/19 History Allergies Allergy/AdvReac Type Severity Reaction Status Date / Time Iodinated Contrast- Oral and Allergy Severe Vomiting/ra Verified 04/30/19 13:03 IV Dye sh/itching latex Allergy Itching/queta Verified 04/30/19 13:03 h adhesive tape Allergy Itching/queta Uncoded 03/27/19 13:15 h Physical Exam Vitals: Vital Signs Temp Pulse Pulse Resp BP BP Pulse Ox 04/30/19 14:10 71 18 99 04/30/19 14:00 76 18 99 04/30/19 13:50 79 18 100 04/30/19 13:40 88 20 99 04/30/19 13:30 89 18 99 04/30/19 13:20 81 18 100 04/30/19 13:10 84 12 100 04/30/19 13:00 81 12 100 04/30/19 12:50 78 12 100 04/30/19 12:40 71 12 100 04/30/19 06:05 97.1 F L 75 16 127/62 127/67 97 Intake and Output 04/30/19 04/30/19 04/30/19 06:59 14:59 22:59 Intake Total 100 188.424 Output Total 2657 Balance 100 -2468.576 Intake: IV 100 49 0.9% Pressure Bag 18 Intake, IV Titration 139.424 Amount Clevidipine Butyrate 25 13.133 mg In Empty Bag 1 bag @ 1 MG/HR 2 mls/hr IV .Q24H LATRE[facility] Rx#:[id number] Propofol 1,000 mg In 26.291 Empty Bag 1 bag @ Titrate IV .Q0M LATRELL Rx#: [id number] Sodium Chloride 0.9% 1, 100 000 ml @ 50 mls/hr IV . Q20H LATRELL Rx#:[id number] Output: Chest Tube Drainage 75 Chest Tube Right Pleural/ 75 Mediastinal Urine 582 Estimated Blood Loss 1999 Other: Voiding Method Indwelling Catheter ABP, PAP, CO, CI - Last 8 Hours Arterial Blood Pressure 108/50 Arterial Blood Pressure 110/52 Arterial Blood Pressure 110/52 Arterial Blood Pressure 125/59 Arterial Blood Pressure 138/64 Arterial Blood Pressure 92/42 Arterial Blood Pressure 137/62 Arterial Blood Pressure 144/41 Arterial Blood Pressure 127/59 Arterial Blood Pressure 128/60 Pulmonary Artery Pressure 34/23 Pulmonary Artery Pressure 35/23 Pulmonary Artery Pressure 34/23 Pulmonary Artery Pressure 34/22 Pulmonary Artery Pressure 34/24 Pulmonary Artery Pressure 34/20 Pulmonary Artery Pressure 33/22 Pulmonary Artery Pressure 29/18 Pulmonary Artery Pressure 33/21 Pulmonary Artery Pressure 33/22 Cardiac Output 5.7 Cardiac Output 6.9 Cardiac Output 6.9 Cardiac Output 5.6 Cardiac Output 5.6 Cardiac Output 5.6 Cardiac Output 5.6 Cardiac Output 5.6 Cardiac Index 2.7 Cardiac Index 3.3 Cardiac Index 3.3 Cardiac Index 2.6 Cardiac Index 2.6 Cardiac Index 2.6 Cardiac Index 2.6 Cardiac Index 2.6 Physical exam revealed a 58-year-old female on mechanical ventilation. HEAD: Normocephalic/atraumatic. EYES: PERRLA, EOMI, no icterus. NOSE: Clear with pink turbinates. THROAT: No erythema or exudates. Endotracheal tube is intact. NECK: No masses, no JVD, no thyroid enlargement, no adenopathy. CHEST: No chest wall deformity. Symmetrical expansion. Midsternal incision is clean dry and intact, covered with surgical dressing, chest tubes with small amount of serosanguineous output in the [place], with no air leak LUNGS: Good breath sound bilaterally no crackles or rhonchi or wheezes CVS: Regular rate and rhythm, normal S1 and S2, no gallops, no murmurs, no rubs ABDOMEN: Soft, nontender. No hepatosplenomegaly, normal bowel sounds, no guarding or rigidity. EXTREMITIES: No clubbing, no edema, no cyanosis, 2+ pulses and upper and lower extremities. SPINE: No scoliosis or deformity SKIN: No rashes CENTRAL NERVOUS SYSTEM: Sedated, intubated arousable, no gross focal deficit. Results - Laboratory Findings CBC and BMP: 04/30/19 12:39 04/30/19 12:39 ABG ABG pH 7.35 (7.35-7.45) 04/30/19 12:03 ABG pCO2 44 mmHg (35-45) 04/30/19 12:03 ABG pO2 214 mmHg (83-108) H 04/30/19 12:03 ABG O2 Saturation 99.7 % (94-97) H 04/30/19 12:03 PT/INR, D-dimer PT 14.1 sec (9.0-12.0) H 04/30/19 12:39 INR 1.4 (<1.2) H 04/30/19 12:39 Abnormal lab findings: Abnormal Labs 04/24/19 04/30/19 04/30/19 09:25 09:12 09:59 RBC Hgb Hct RDW Plt Count PT INR ABG pO2 226 H 261 H ABG Total CO2 26 H 26 H ABG O2 Saturation 99.8 H 99.9 H ABG Hematocrit 31 L 30 L ABG Sodium ABG Potassium ABG Ionized Calcium ABG Glucose 105 H 107 H ABG Lactic Acid 2.5 H* Hemoglobin 10.2 L 9.8 L Glucose POC Glucose (mg/dL) AST ALT Total Protein Albumin Arterial Blood Potassium Arterial Blood Glucose 105 H 107 H Crossmatch See Detail 04/30/19 04/30/19 04/30/19 10:29 11:13 12:03 RBC Hgb Hct RDW Plt Count PT INR ABG pO2 260 H 360 H 214 H ABG Total CO2 26 H 25 H 25 H ABG O2 Saturation 99.8 H 100.0 H 99.7 H ABG Hematocrit 26 L 25 L 29 L ABG Sodium 134 L ABG Potassium 5.3 H 5.1 H ABG Ionized Calcium 4.2 L 4.2 L ABG Glucose 178 H 176 H 143 H ABG Lactic Acid 2.3 H* 3.1 H* 2.4 H* Hemoglobin 8.5 L 8.3 L 9.4 L Glucose POC Glucose (mg/dL) AST ALT Total Protein Albumin Arterial Blood Potassium 5.3 H 5.1 H Arterial Blood Glucose 178 H 176 H 143 H Crossmatch 04/30/19 04/30/19 04/30/19 12:39 12:39 12:39 RBC 3.23 L Hgb 9.4 L D Hct 28.8 L RDW 16.3 H Plt Count 94 L PT INR ABG pO2 ABG Total CO2 ABG O2 Saturation ABG Hematocrit ABG Sodium ABG Potassium ABG Ionized Calcium ABG Glucose ABG Lactic Acid Hemoglobin Glucose 115 H POC Glucose (mg/dL) 114 H AST 155 H ALT 86 H Total Protein 5.4 L Albumin 2.7 L Arterial Blood Potassium Arterial Blood Glucose Crossmatch 04/30/19 04/30/19 04/30/19 12:39 13:16 14:03 RBC Hgb Hct RDW Plt Count PT 14.1 H INR 1.4 H ABG pO2 ABG Total CO2 ABG O2 Saturation ABG Hematocrit ABG Sodium ABG Potassium ABG Ionized Calcium ABG Glucose ABG Lactic Acid Hemoglobin Glucose POC Glucose (mg/dL) 100 H 103 H AST ALT Total Protein Albumin Arterial Blood Potassium Arterial Blood Glucose Crossmatch - Diagnostic Findings Chest x-ray: image reviewed (As noted in HPI.) Assessment and Plan Assessment: Impression: Status post aortic valve replacement with a #23 mm bioprosthetic aortic valve, clip ligation of left atrial appendage. Postoperative day #0. History of benign essential hypertension. Recommendation: Continue present ventilatory support, continue present ventilator settings, plan to wean and extubate in the next few hours. We will continue to follow-up Time with Patient: Greater than 30
[2019-04-30] MEDS: IPRATROPIUM-ALBUTEROL 3 ML NEB INHALATION SCH ×3 (15:26→23:10)
[2019-04-30 15:49] LABS: ABG Base Excess -0.3 mmol/L; ABG HCO3 25 mmol/L (21-25); ABG Oxygen Saturation 97.3 % (94-97); ABG PCO2 46 mmHg (35-45); ABG PH 7.35 (7.35-7.45); ABG PO2 99 mmHg (83-108); ABG TCO2 27 mmol/L (19-24); Allen Test Performed? Yes
[2019-04-30 16:12] LABS: Anisocytosis Slight; Basophils # (A) 0.1 k/uL (0-0.2); Basophils % (A) 1 %; Eosinophils # (A) 0.1 k/uL (0-0.7); Eosinophils % (A) 1 %; HCT 33.1 % (34.0-46.0); HGB 10.9 gm/dL (11.4-16.0); Hypochromasia Slight; Lymphocytes # (A) 1.7 k/uL (1.0-4.8); Lymphocytes % (A) 16 %; MCH 29.3 pg (25.0-35.0); MCHC 32.8 g/dL (31.0-37.0); MCV 89.2 fL (80.0-100.0); Monocytes # (A) 0.4 k/uL (0-1.0); Monocytes % (A) 4 %; Neutrophils # (A) 8.2 k/uL (1.3-7.7); Neutrophils % (A) 78 %; RBC 3.71 m/uL (3.80-5.40); RDW 16.3 % (11.5-15.5); WBC 10.6 k/uL (3.8-10.6)
[2019-04-30 16:16] LABS: Glucose,Whole Blood 165 mg/dL (75-99)
[2019-04-30] MEDS: INSULIN REGULAR 100 UNIT in SODIUM CHLORIDE 0.9% 100 ML IV SCH (16:30)
[2019-04-30 16:53] LABS: Platelet Count 165 k/uL (150-450)
[2019-04-30 16:57] LABS: Glucose,Whole Blood 166 mg/dL (75-99)
[2019-04-30] MEDS: ACETAMINOPHEN IV (For NPO) 1,000 MG in EMPTY BAG 1 BAG IVPB SCH ×2 (16:57→23:00)
[2019-04-30 18:20] LABS: Glucose,Whole Blood 153 mg/dL (75-99)
[2019-04-30 19:02] LABS: Anisocytosis Slight; Basophils % (A) 0 %; Eosinophils % (A) 0 %; HCT 34.5 % (34.0-46.0); HGB 11.1 gm/dL (11.4-16.0); Lymphocytes # (A) 0.7 k/uL (1.0-4.8); Lymphocytes % (A) 6 %; MCHC 32.2 g/dL (31.0-37.0); MCV 87.2 fL (80.0-100.0); Mean Platelet Volume 7.4; Monocytes # (A) 0.4 k/uL (0-1.0); Monocytes % (A) 3 %; Neutrophils # (A) 10.5 k/uL (1.3-7.7); Neutrophils % (A) 90 %; Platelet Count 145 k/uL (150-450); RBC 3.95 m/uL (3.80-5.40); RDW 16.1 % (11.5-15.5); WBC 11.6 k/uL (3.8-10.6)
[2019-04-30 19:13] LABS: Glucose,Whole Blood 159 mg/dL (75-99)
[2019-04-30 20:34] LABS: Glucose,Whole Blood 150 mg/dL (75-99)
[2019-04-30] MEDS: FERROUS SULFATE 325 MG TAB PO SCH (20:41)
[2019-04-30] MEDS: HEPARIN SODIUM,PORCINE 5,000 UNIT/ML 1 ML VIAL SQ SCH (20:41)
[2019-04-30] MEDS: MUPIROCIN 2% OINT 22 GM TUBE NASAL SCH (20:42)
[2019-04-30] MEDS ORDERED: METOPROLOL TARTRATE 25 MG TAB PO SCH (21:15)
[2019-04-30 21:24] LABS: Glucose,Whole Blood 149 mg/dL (75-99)
[2019-04-30] MEDS: KETOROLAC 30 MG/ML 1 ML VIAL IVP SCH (21:37)
[2019-04-30 22:27] LABS: Glucose,Whole Blood 165 mg/dL (75-99)
[2019-04-30 23:27] LABS: Glucose,Whole Blood 151 mg/dL (75-99)
[2019-05-01 00:27] LABS: Glucose,Whole Blood 147 mg/dL (75-99)
[2019-05-01 01:30] LABS: Glucose,Whole Blood 135 mg/dL (75-99)
[2019-05-01 02:26] LABS: Glucose,Whole Blood 125 mg/dL (75-99)
[2019-05-01] MEDS: HYDROcodone/APAP 5-325MG 1 EACH TAB PO PRN ×6 (03:00→23:13)
[2019-05-01 03:06] LABS: Glucose,Whole Blood 125 mg/dL (75-99)
[2019-05-01] MEDS: KETOROLAC 30 MG/ML 1 ML VIAL IVP SCH ×4 (04:57→23:14)
[2019-05-01] MEDS: HEPARIN SODIUM,PORCINE 5,000 UNIT/ML 1 ML VIAL SQ SCH ×3 (04:57→20:42)
[2019-05-01 05:14] LABS: Glucose,Whole Blood 117 mg/dL (75-99)
[2019-05-01] MEDS: CLEVIDIPINE BUTYRATE 25 MG in EMPTY BAG 1 BAG IV SCH ×2 (05:16)
[2019-05-01 06:06] LABS: Anisocytosis Slight; Basophils % (A) 0 %; Eosinophils % (A) 0 %; HGB 11.5 gm/dL (11.4-16.0); Lymphocytes # (A) 1.4 k/uL (1.0-4.8); Lymphocytes % (A) 9 %; MCH 28.7 pg (25.0-35.0); MCV 86.9 fL (80.0-100.0); Mean Platelet Volume 9.1; Monocytes # (A) 0.7 k/uL (0-1.0); Monocytes % (A) 4 %; Neutrophils # (A) 13.5 k/uL (1.3-7.7); Neutrophils % (A) 86 %; Platelet Count 168 k/uL (150-450); RBC 4.03 m/uL (3.80-5.40); RDW 16.3 % (11.5-15.5); WBC 15.8 k/uL (3.8-10.6)
[2019-05-01 06:18] LABS: ALT 88 U/L (9-52); AST 171 U/L (14-36); African American GFR (CKD) >90 (>60 ml/min/1.73 sqM); Albumin 3.6 g/dL (3.5-5.0); Alkaline Phosphatase 65 U/L (38-126); Anion Gap 8 mmol/L; Blood Urea Nitrogen 18 mg/dL (7-17); Calcium 8.7 mg/dL (8.4-10.2); Carbon Dioxide 23 mmol/L (22-30); Chloride 107 mmol/L (98-107); Glucose 127 mg/dL (74-99); Potassium 5.1 mmol/L (3.5-5.1); Sodium 138 mmol/L (137-145); Total Bilirubin 0.7 mg/dL (0.2-1.3)
[2019-05-01 06:26] LABS: Glucose,Whole Blood 123 mg/dL (75-99)
[2019-05-01] MEDS ORDERED: LEVOTHYROXINE 50 MCG TAB PO SCH (06:30)
[2019-05-01] MEDS: LEVOTHYROXINE 125 MCG TAB PO SCH (07:00)
[2019-05-01] MEDS: IPRATROPIUM-ALBUTEROL 3 ML NEB INHALATION SCH ×4 (08:12→23:14)
[2019-05-01 08:22] LABS: Glucose,Whole Blood 134 mg/dL (75-99)
[2019-05-01] MEDS ORDERED: FUROSEMIDE 10 MG/ML 4 ML VIAL IV STA (08:24)
[2019-05-01] MEDS ORDERED: PANTOPRAZOLE 40 MG/10 ML VIAL IVP SCH (09:00)
[2019-05-01] MEDS ORDERED: METOPROLOL TARTRATE 12.5 MG TAB PO SCH (09:00)
[2019-05-01] MEDS ORDERED: BISACODYL 10 MG SUPP RECTAL PRN (09:00)
[2019-05-01] MEDS ORDERED: ATORVASTATIN 40 MG TAB PO SCH (09:00)
[2019-05-01] MEDS ORDERED: MAGNESIUM HYDROXIDE 2,400 MG/10 ML CUP PO PRN (09:00)
--- NOTE | 2019-05-01 09:10 | XR ---
EXAMINATION TYPE: XR chest 1V portable DATE OF EXAM: 05/01/2019 COMPARISON: 04/30/2019 HISTORY: Post cardiac surgery TECHNIQUE: Single frontal view of the chest is obtained. FINDINGS: Enteric and endotracheal tubes have been removed in the interim. Right internal jugular ap proach [place] catheter remains in the pulmonary outflow tract. Right-sided thoracostomy tube is si milar in position. No sizable residual pneumothorax. Mediastinal drain is in place. Multifocal linear subsegmental atelectasis. No sizable pneumothorax. Trace pleural effusions are seen. Postoperative c hanges the chest and mediastinum with mildly enlarged cardiac mediastinal silhouette. IMPRESSION: Trace bilateral pleural effusions and multifocal subsegmental atelectasis. Extubation an d removal of the enteric tube otherwise stable lines and tubes.
[2019-05-01] MEDS: MUPIROCIN 2% OINT 22 GM TUBE NASAL SCH ×2 (09:41→20:50)
--- NOTE | 2019-05-01 09:43 | P.PN ---
Subjective Progress Note Date: 05/01/19 Principal diagnosis: Critical aortic valve stenosis, past medical history significant for hypertension, hypothyroid, chronic anemia, gastroesophageal reflux disease, vitamin D deficiency, preoperative hepatitis C IgG Ab reactive, fatty liver, morbid obesity, depression and remote history of nicotine dependence quit smoking 3 years ago. POD #1 aortic valve replacement with a #23 mm Simon Inspiris bioprosthetic aortic valve, clip ligation of the left atrial appendage with a #35 mm Atriclip and an intraoperative transesophageal echocardiogram. Postoperative transaminitis, an expected outcome due to her preoperative elevation liver enzymes and history of fatty liver. The patient is currently sitting up to the bedside chair in the intensive care unit. She is in no acute distress. She is complaining of surgical type pain to her right chest tube insertion site, denies any complaints of shortness of breath. She was successfully extubated at 15:57 PM yesterday, which was within 4 hours of her postoperative period. Currently she is on 4 L nasal cannula with oxygen saturations 95%. She is achieving 1000 mL on her incentive spirometry. She remained hemodynamically stable and is on Cleviprex 3 mg/h for blood pressure control. Right IJ Cordis with [place] catheter remains in place. Current cardiac output 4.5, cardiac index 2.1, PA pressures 38/18, CVP 19 mmHg. Mediastinal and right pleural chest tubes remain in place to low continuous wall suction at -20 cm H2O. No air leak is present. Draining thin serosanguineous drainage 300 mL output since surgery, 80 mL output in the last 8 hours. Labs were reviewed as morning and her AST is 171 and her ALT is 88. Objective - Vital Signs Vital signs: Vital Signs Temp 36.4 F L 05/01/19 05:30 Pulse 61 05/01/19 08:30 Resp 11 L 05/01/19 08:30 BP 127/67 04/30/19 06:05 Pulse Ox 94 L 05/01/19 08:00 Intake & Output 04/30/19 05/01/19 05/01/19 18:59 06:59 18:59 Intake Total 502.464 4918.249 204 Output Total 3069 593 40 Balance -2620.066 573.249 164 Weight 109.6 kg Intake: IV 85 748 204 0.9% Pressure Bag 54 108 84 CO/CI 90 20 Sodium Chloride 0.9% 1, 550 100 000 ml @ 20 mls/hr IV . Q24H [facility] Rx#:[id number] Intake, IV Titration 363.934 288.249 Amount Clevidipine Butyrate 25 30.733 79.466 mg In Empty Bag 1 bag @ 1 MG/HR 2 mls/hr IV .Q24H [facility] Rx#:[id number] Insulin Regular 100 unit 6.910 58.783 In Sodium Chloride 0.9% 100 ml @ Per Protocol IV .Q0M [facility] Rx#:[id number] Propofol 1,000 mg In 26.291 Empty Bag 1 bag @ Titrate IV .Q0M [facility] Rx#: [id number] Sodium Chloride 0.9% 1, 300 50 000 ml @ 20 mls/hr IV . Q24H [facility] Rx#:[id number] ceFAZolin 2,000 mg In 100 Sodium Chloride 0.9% 30 ml @ Per Protocol IVPB ONCE ONE Rx#:[id number] Oral 130 Output: Chest Tube Drainage 136 146 0 Chest Tube Right Pleural/ 136 146 0 Mediastinal Urine 933 447 40 Estimated Blood Loss 1999 Other: Voiding Method Indwelling Catheter Indwelling Catheter ABP, PAP, CO, CI - Last Documented Arterial Blood Pressure 133/55 Pulmonary Artery Pressure 32/15 Cardiac Output 4.5 Cardiac Index 2.1 - Constitutional General appearance: Present: cooperative, morbidly obese, no acute distress - Respiratory Details: Lungs sounds essentially clear throughout, diminished bilateral bases right greater than left. Respirations are symmetrical and nonlabored. Oxygen saturation are 94% on 4 L nasal cannula. Achieving 1000 mL on her incentive spirometry. Mediastinal and right pleural chest tube to remain in place to low continuous wall suction -20 cm H2O. Draining thin serosanguineous drainage. 300 mL output since surgery, 80 mL output in the last 8 hours. - Cardiovascular Details: Regular rhythm and bradycardic rate. S1 and S2 present, negative for S3, gallop or murmur. Sternum is stable. Bedside telemetry showing sinus bradycardia heart rate 59. No edema present. Ventricular epicardial pacemaker wires in place and connected to a backup pacemaker generator on a VVI 50. Knee-high EVELIO hose and sequential compression devices in placed to her bilateral lower extremities. Heart hugger is in place and she is demonstrating appropriate use. Right radial arterial line in place and functioning. Right IJ Cordis and [place] catheter in place and functioning. Current cardiac output 4.5, cardiac index 2.1, PA pressures 36/18, CVP 19 mmHg. - Gastrointestinal Gastrointestinal Comment(s): Abdomen is soft, nontender and nondistended. Hypoactive bowel sounds present in all 4 abdominal quadrants. No guarding or rigidity. No organomegaly appreciated. Tolerating oral intake. - Genitourinary Genitourinary Comment(s): Vizcarra catheter for accurate I&O. Draining clear morgan urine. 250 mL output in the last 8 hours. - Integumentary Integumentary Comment(s): Skin is warm and dry. No clubbing or cyanosis is present. Midline sternal incision is clean, dry and approximated. No drainage or redness is present. Midline sternal incision dressing clean, dry and intact. - Neurologic Neurologic Comment(s): No focal deficits. Neurologic: Present: CNII-XII intact - Musculoskeletal Musculoskeletal: Present: gait normal, generalized weakness, strength equal bilaterally - Psychiatric Psychiatric: Present: A&O x's 3, appropriate affect, intact judgment & insight - Allied health notes Allied health notes reviewed: nursing - Labs CBC & Chem 7: 05/01/19 05:54 05/01/19 05:54 Labs: Abnormal Lab Results - Last 24 Hours (Table) 04/24/19 04/30/19 04/30/19 Range/Units 09:25 09:12 09:59 WBC (3.8-10.6) k/uL RBC (3.80-5.40) m/uL Hgb (11.4-16.0) gm/dL Hct (34.0-46.0) % RDW (11.5-15.5) % Plt Count (150-450) k/uL Neutrophils # (1.3-7.7) k/uL Lymphocytes # (1.0-4.8) k/uL PT (9.0-12.0) sec INR (<1.2) ABG pH (7.35-7.45) ABG pCO2 (35-45) mmHg ABG pO2 226 H 261 H (83-108) mmHg ABG HCO3 (21-25) mmol/L ABG Total CO2 26 H 26 H (19-24) mmol/L ABG O2 Saturation 99.8 H 99.9 H (94-97) % ABG Hematocrit 31 L 30 L (34.0-46.0) % ABG Sodium (135-146) mmol/L ABG Potassium (3.4-4.5) mmol/L ABG Ionized Calcium (4.5-5.3) mg/dL ABG Glucose 105 H 107 H (75-99) mg/dL ABG Lactic Acid 2.5 H* (0.5-1.6) mmol/L Hemoglobin 10.2 L 9.8 L (11.4-16.0) gm/dL BUN (7-17) mg/dL Glucose (74-99) mg/dL POC Glucose (mg/dL) (75-99) mg/dL AST (14-36) U/L ALT (9-52) U/L Total Protein (6.3-8.2) g/dL Albumin (3.5-5.0) g/dL Arterial Blood Potassium (3.4-4.5) mmol/L Arterial Blood Glucose 105 H 107 H (75-99) mg/dL Crossmatch See Detail 04/30/19 04/30/19 04/30/19 Range/Units 10:29 11:13 12:03 WBC (3.8-10.6) k/uL RBC (3.80-5.40) m/uL Hgb (11.4-16.0) gm/dL Hct (34.0-46.0) % RDW (11.5-15.5) % Plt Count (150-450) k/uL Neutrophils # (1.3-7.7) k/uL Lymphocytes # (1.0-4.8) k/uL PT (9.0-12.0) sec INR (<1.2) ABG pH (7.35-7.45) ABG pCO2 (35-45) mmHg ABG pO2 260 H 360 H 214 H (83-108) mmHg ABG HCO3 (21-25) mmol/L ABG Total CO2 26 H 25 H 25 H (19-24) mmol/L ABG O2 Saturation 99.8 H 100.0 H 99.7 H (94-97) % ABG Hematocrit 26 L 25 L 29 L (34.0-46.0) % ABG Sodium 134 L (135-146) mmol/L ABG Potassium 5.3 H 5.1 H (3.4-4.5) mmol/L ABG Ionized Calcium 4.2 L 4.2 L (4.5-5.3) mg/dL ABG Glucose 178 H 176 H 143 H (75-99) mg/dL ABG Lactic Acid 2.3 H* 3.1 H* 2.4 H* (0.5-1.6) mmol/L Hemoglobin 8.5 L 8.3 L 9.4 L (11.4-16.0) gm/dL BUN (7-17) mg/dL Glucose (74-99) mg/dL POC Glucose (mg/dL) (75-99) mg/dL AST (14-36) U/L ALT (9-52) U/L Total Protein (6.3-8.2) g/dL Albumin (3.5-5.0) g/dL Arterial Blood Potassium 5.3 H 5.1 H (3.4-4.5) mmol/L Arterial Blood Glucose 178 H 176 H 143 H (75-99) mg/dL Crossmatch 04/30/19 04/30/19 04/30/19 Range/Units 12:39 12:39 12:39 WBC (3.8-10.6) k/uL RBC 3.23 L (3.80-5.40) m/uL Hgb 9.4 L D (11.4-16.0) gm/dL Hct 28.8 L (34.0-46.0) % RDW 16.3 H (11.5-15.5) % Plt Count 94 L (150-450) k/uL Neutrophils # (1.3-7.7) k/uL Lymphocytes # (1.0-4.8) k/uL PT (9.0-12.0) sec INR (<1.2) ABG pH (7.35-7.45) ABG pCO2 (35-45) mmHg ABG pO2 (83-108) mmHg ABG HCO3 (21-25) mmol/L ABG Total CO2 (19-24) mmol/L ABG O2 Saturation (94-97) % ABG Hematocrit (34.0-46.0) % ABG Sodium (135-146) mmol/L ABG Potassium (3.4-4.5) mmol/L ABG Ionized Calcium (4.5-5.3) mg/dL ABG Glucose (75-99) mg/dL ABG Lactic Acid (0.5-1.6) mmol/L Hemoglobin (11.4-16.0) gm/dL BUN (7-17) mg/dL Glucose 115 H (74-99) mg/dL POC Glucose (mg/dL) 114 H (75-99) mg/dL AST 155 H (14-36) U/L ALT 86 H (9-52) U/L Total Protein 5.4 L (6.3-8.2) g/dL Albumin 2.7 L (3.5-5.0) g/dL Arterial Blood Potassium (3.4-4.5) mmol/L Arterial Blood Glucose (75-99) mg/dL Crossmatch 04/30/19 04/30/19 04/30/19 Range/Units 12:39 13:04 13:16 WBC (3.8-10.6) k/uL RBC (3.80-5.40) m/uL Hgb (11.4-16.0) gm/dL Hct (34.0-46.0) % RDW (11.5-15.5) % Plt Count (150-450) k/uL Neutrophils # (1.3-7.7) k/uL Lymphocytes # (1.0-4.8) k/uL PT 14.1 H (9.0-12.0) sec INR 1.4 H (<1.2) ABG pH 7.27 L (7.35-7.45) ABG pCO2 60 H (35-45) mmHg ABG pO2 >400 H (83-108) mmHg ABG HCO3 27 H (21-25) mmol/L ABG Total CO2 29 H (19-24) mmol/L ABG O2 Saturation 100.0 H (94-97) % ABG Hematocrit (34.0-46.0) % ABG Sodium (135-146) mmol/L ABG Potassium (3.4-4.5) mmol/L ABG Ionized Calcium (4.5-5.3) mg/dL ABG Glucose (75-99) mg/dL ABG Lactic Acid (0.5-1.6) mmol/L Hemoglobin (11.4-16.0) gm/dL BUN (7-17) mg/dL Glucose (74-99) mg/dL POC Glucose (mg/dL) 100 H (75-99) mg/dL AST (14-36) U/L ALT (9-52) U/L Total Protein (6.3-8.2) g/dL Albumin (3.5-5.0) g/dL Arterial Blood Potassium (3.4-4.5) mmol/L Arterial Blood Glucose (75-99) mg/dL Crossmatch 04/30/19 04/30/19 04/30/19 Range/Units 14:03 15:00 15:14 WBC (3.8-10.6) k/uL RBC 3.71 L (3.80-5.40) m/uL Hgb 10.9 L (11.4-16.0) gm/dL Hct 33.1 L (34.0-46.0) % RDW 16.3 H (11.5-15.5) % Plt Count (150-450) k/uL Neutrophils # 8.2 H (1.3-7.7) k/uL Lymphocytes # (1.0-4.8) k/uL PT (9.0-12.0) sec INR (<1.2) ABG pH (7.35-7.45) ABG pCO2 (35-45) mmHg ABG pO2 (83-108) mmHg ABG HCO3 (21-25) mmol/L ABG Total CO2 (19-24) mmol/L ABG O2 Saturation (94-97) % ABG Hematocrit (34.0-46.0) % ABG Sodium (135-146) mmol/L ABG Potassium (3.4-4.5) mmol/L ABG Ionized Calcium (4.5-5.3) mg/dL ABG Glucose (75-99) mg/dL ABG Lactic Acid (0.5-1.6) mmol/L Hemoglobin (11.4-16.0) gm/dL BUN (7-17) mg/dL Glucose (74-99) mg/dL POC Glucose (mg/dL) 103 H 142 H (75-99) mg/dL AST (14-36) U/L ALT (9-52) U/L Total Protein (6.3-8.2) g/dL Albumin (3.5-5.0) g/dL Arterial Blood Potassium (3.4-4.5) mmol/L Arterial Blood Glucose (75-99) mg/dL Crossmatch 04/30/19 04/30/19 04/30/19 Range/Units 15:46 16:12 16:55 WBC (3.8-10.6) k/uL RBC (3.80-5.40) m/uL Hgb (11.4-16.0) gm/dL Hct (34.0-46.0) % RDW (11.5-15.5) % Plt Count (150-450) k/uL Neutrophils # (1.3-7.7) k/uL Lymphocytes # (1.0-4.8) k/uL PT (9.0-12.0) sec INR (<1.2) ABG pH (7.35-7.45) ABG pCO2 46 H (35-45) mmHg ABG pO2 (83-108) mmHg ABG HCO3 (21-25) mmol/L ABG Total CO2 27 H (19-24) mmol/L ABG O2 Saturation 97.3 H (94-97) % ABG Hematocrit (34.0-46.0) % ABG Sodium (135-146) mmol/L ABG Potassium (3.4-4.5) mmol/L ABG Ionized Calcium (4.5-5.3) mg/dL ABG Glucose (75-99) mg/dL ABG Lactic Acid (0.5-1.6) mmol/L Hemoglobin (11.4-16.0) gm/dL BUN (7-17) mg/dL Glucose (74-99) mg/dL POC Glucose (mg/dL) 165 H 166 H (75-99) mg/dL AST (14-36) U/L ALT (9-52) U/L Total Protein (6.3-8.2) g/dL Albumin (3.5-5.0) g/dL Arterial Blood Potassium (3.4-4.5) mmol/L Arterial Blood Glucose (75-99) mg/dL Crossmatch 04/30/19 04/30/19 04/30/19 Range/Units 18:05 18:59 20:07 WBC (3.8-10.6) k/uL RBC (3.80-5.40) m/uL Hgb (11.4-16.0) gm/dL Hct (34.0-46.0) % RDW (11.5-15.5) % Plt Count (150-450) k/uL Neutrophils # (1.3-7.7) k/uL Lymphocytes # (1.0-4.8) k/uL PT (9.0-12.0) sec INR (<1.2) ABG pH (7.35-7.45) ABG pCO2 (35-45) mmHg ABG pO2 (83-108) mmHg ABG HCO3 (21-25) mmol/L ABG Total CO2 (19-24) mmol/L ABG O2 Saturation (94-97) % ABG Hematocrit (34.0-46.0) % ABG Sodium (135-146) mmol/L ABG Potassium (3.4-4.5) mmol/L ABG Ionized Calcium (4.5-5.3) mg/dL ABG Glucose (75-99) mg/dL ABG Lactic Acid (0.5-1.6) mmol/L Hemoglobin (11.4-16.0) gm/dL BUN (7-17) mg/dL Glucose (74-99) mg/dL POC Glucose (mg/dL) 153 H 159 H 150 H (75-99) mg/dL AST (14-36) U/L ALT (9-52) U/L Total Protein (6.3-8.2) g/dL Albumin (3.5-5.0) g/dL Arterial Blood Potassium (3.4-4.5) mmol/L Arterial Blood Glucose (75-99) mg/dL Crossmatch 04/30/19 04/30/19 04/30/19 Range/Units 20:54 21:57 22:58 WBC (3.8-10.6) k/uL RBC (3.80-5.40) m/uL Hgb (11.4-16.0) gm/dL Hct (34.0-46.0) % RDW (11.5-15.5) % Plt Count (150-450) k/uL Neutrophils # (1.3-7.7) k/uL Lymphocytes # (1.0-4.8) k/uL PT (9.0-12.0) sec INR (<1.2) ABG pH (7.35-7.45) ABG pCO2 (35-45) mmHg ABG pO2 (83-108) mmHg ABG HCO3 (21-25) mmol/L ABG Total CO2 (19-24) mmol/L ABG O2 Saturation (94-97) % ABG Hematocrit (34.0-46.0) % ABG Sodium (135-146) mmol/L ABG Potassium (3.4-4.5) mmol/L ABG Ionized Calcium (4.5-5.3) mg/dL ABG Glucose (75-99) mg/dL ABG Lactic Acid (0.5-1.6) mmol/L Hemoglobin (11.4-16.0) gm/dL BUN (7-17) mg/dL Glucose (74-99) mg/dL POC Glucose (mg/dL) 149 H 165 H 151 H (75-99) mg/dL AST (14-36) U/L ALT (9-52) U/L Total Protein (6.3-8.2) g/dL Albumin (3.5-5.0) g/dL Arterial Blood Potassium (3.4-4.5) mmol/L Arterial Blood Glucose (75-99) mg/dL Crossmatch 04/30/19 04/30/19 05/01/19 Range/Units 23:58 Unknown 01:00 WBC 11.6 H (3.8-10.6) k/uL RBC (3.80-5.40) m/uL Hgb 11.1 L (11.4-16.0) gm/dL Hct (34.0-46.0) % RDW 16.1 H (11.5-15.5) % Plt Count 145 L (150-450) k/uL Neutrophils # 10.5 H (1.3-7.7) k/uL Lymphocytes # 0.7 L (1.0-4.8) k/uL PT (9.0-12.0) sec INR (<1.2) ABG pH (7.35-7.45) ABG pCO2 (35-45) mmHg ABG pO2 (83-108) mmHg ABG HCO3 (21-25) mmol/L ABG Total CO2 (19-24) mmol/L ABG O2 Saturation (94-97) % ABG Hematocrit (34.0-46.0) % ABG Sodium (135-146) mmol/L ABG Potassium (3.4-4.5) mmol/L ABG Ionized Calcium (4.5-5.3) mg/dL ABG Glucose (75-99) mg/dL ABG Lactic Acid (0.5-1.6) mmol/L Hemoglobin (11.4-16.0) gm/dL BUN (7-17) mg/dL Glucose (74-99) mg/dL POC Glucose (mg/dL) 147 H 135 H (75-99) mg/dL AST (14-36) U/L ALT (9-52) U/L Total Protein (6.3-8.2) g/dL Albumin (3.5-5.0) g/dL Arterial Blood Potassium (3.4-4.5) mmol/L Arterial Blood Glucose (75-99) mg/dL Crossmatch 05/01/19 05/01/19 05/01/19 Range/Units 01:57 02:53 05:10 WBC (3.8-10.6) k/uL RBC (3.80-5.40) m/uL Hgb (11.4-16.0) gm/dL Hct (34.0-46.0) % RDW (11.5-15.5) % Plt Count (150-450) k/uL Neutrophils # (1.3-7.7) k/uL Lymphocytes # (1.0-4.8) k/uL PT (9.0-12.0) sec INR (<1.2) ABG pH (7.35-7.45) ABG pCO2 (35-45) mmHg ABG pO2 (83-108) mmHg ABG HCO3 (21-25) mmol/L ABG Total CO2 (19-24) mmol/L ABG O2 Saturation (94-97) % ABG Hematocrit (34.0-46.0) % ABG Sodium (135-146) mmol/L ABG Potassium (3.4-4.5) mmol/L ABG Ionized Calcium (4.5-5.3) mg/dL ABG Glucose (75-99) mg/dL ABG Lactic Acid (0.5-1.6) mmol/L Hemoglobin (11.4-16.0) gm/dL BUN (7-17) mg/dL Glucose (74-99) mg/dL POC Glucose (mg/dL) 125 H 125 H 117 H (75-99) mg/dL AST (14-36) U/L ALT (9-52) U/L Total Protein (6.3-8.2) g/dL Albumin (3.5-5.0) g/dL Arterial Blood Potassium (3.4-4.5) mmol/L Arterial Blood Glucose (75-99) mg/dL Crossmatch 05/01/19 05/01/19 05/01/19 Range/Units 05:54 05:54 06:15 WBC 15.8 H (3.8-10.6) k/uL RBC (3.80-5.40) m/uL Hgb (11.4-16.0) gm/dL Hct (34.0-46.0) % RDW 16.3 H (11.5-15.5) % Plt Count (150-450) k/uL Neutrophils # 13.5 H (1.3-7.7) k/uL Lymphocytes # (1.0-4.8) k/uL PT (9.0-12.0) sec INR (<1.2) ABG pH (7.35-7.45) ABG pCO2 (35-45) mmHg ABG pO2 (83-108) mmHg ABG HCO3 (21-25) mmol/L ABG Total CO2 (19-24) mmol/L ABG O2 Saturation (94-97) % ABG Hematocrit (34.0-46.0) % ABG Sodium (135-146) mmol/L ABG Potassium (3.4-4.5) mmol/L ABG Ionized Calcium (4.5-5.3) mg/dL ABG Glucose (75-99) mg/dL ABG Lactic Acid (0.5-1.6) mmol/L Hemoglobin (11.4-16.0) gm/dL BUN 18 H (7-17) mg/dL Glucose 127 H (74-99) mg/dL POC Glucose (mg/dL) 123 H (75-99) mg/dL AST 171 H (14-36) U/L ALT 88 H (9-52) U/L Total Protein (6.3-8.2) g/dL Albumin (3.5-5.0) g/dL Arterial Blood Potassium (3.4-4.5) mmol/L Arterial Blood Glucose (75-99) mg/dL Crossmatch 05/01/19 Range/Units 08:09 WBC (3.8-10.6) k/uL RBC (3.80-5.40) m/uL Hgb (11.4-16.0) gm/dL Hct (34.0-46.0) % RDW (11.5-15.5) % Plt Count (150-450) k/uL Neutrophils # (1.3-7.7) k/uL Lymphocytes # (1.0-4.8) k/uL PT (9.0-12.0) sec INR (<1.2) ABG pH (7.35-7.45) ABG pCO2 (35-45) mmHg ABG pO2 (83-108) mmHg ABG HCO3 (21-25) mmol/L ABG Total CO2 (19-24) mmol/L ABG O2 Saturation (94-97) % ABG Hematocrit (34.0-46.0) % ABG Sodium (135-146) mmol/L ABG Potassium (3.4-4.5) mmol/L ABG Ionized Calcium (4.5-5.3) mg/dL ABG Glucose (75-99) mg/dL ABG Lactic Acid (0.5-1.6) mmol/L Hemoglobin (11.4-16.0) gm/dL BUN (7-17) mg/dL Glucose (74-99) mg/dL POC Glucose (mg/dL) 134 H (75-99) mg/dL AST (14-36) U/L ALT (9-52) U/L Total Protein (6.3-8.2) g/dL Albumin (3.5-5.0) g/dL Arterial Blood Potassium (3.4-4.5) mmol/L Arterial Blood Glucose (75-99) mg/dL Crossmatch - Imaging and Cardiology Chest x-ray: report reviewed, image reviewed Assessment and Plan Assessment: 1. Critical aortic valve stenosis, status post aortic valve replacement 2. History of hypertension 3. History of hypothyroidism 4. Chronic anemia 5. GERD 6. Vitamin D deficiency 7. Hepatitis C IgG Ab, reactive preoperatively 8. History of fatty liver, with preoperative elevation of her AST 9. Morbid obesity 10. Depression 11. Remote history of nicotine dependence quit smoking 3 years ago Plan: 1. We will continue to maximize medical therapy with aspirin, Plavix, heparin subcu and beta nadine. We will decrease her metoprolol tartrate to 12.5 mg by mouth twice a day due to her heart rate of 59. 2. We will hold her statin at this time due to her elevation in her AST and ALT. We will restart her statin once her liver enzymes have normalized. 3. Discontinue her [place]-Fredrick catheter, keep her right IJ Cordis and placed to continuous CVP monitoring. 4. Discontinue her mediastinal chest tube, keep her right pleural chest tube in place to low continuous wall suction -20 cm H2O. 5. We will start her on lisinopril 2.5 mg by mouth daily at noon for afterload reduction. Wean Cleviprex drip as tolerated. 6. Lasix 40 mg IV 1 now. 7. GI and DVT prophylaxis. 8. We will continue to monitor her daily labs and chest x-rays. Electrolyte replacements per protocols. 9. Wean oxygen as tolerated. Encourage use of her incentive spirometry every hour while awake. 10. Pain management per current when necessary orders. Toradol was added yesterday. 11. Increase activity as tolerated, PT/OT and cardiac rehab at been consulted and are following. 12. She has been restarted on her home dose of Synthroid 125 g by mouth daily, Celexa 40 mg by mouth every morning and ferrous sulfate 325 mg by mouth twice a day. 13. Bronchodilator management per pulmonary medicine's recommendations. 14. Insulin management per primary care service. 15. More recommendations to follow based on patient's clinical course. Time with Patient: Greater than 30
[2019-05-01] MEDS: CLOPIDOGREL 75 MG TAB PO SCH (09:46)
[2019-05-01] MEDS: ASPIRIN 325 MG TAB PO SCH (09:46)
[2019-05-01] MEDS: FERROUS SULFATE 325 MG TAB PO SCH ×2 (09:46→20:42)
[2019-05-01] MEDS: CITALOPRAM HYDROBROMIDE 20 MG TAB PO SCH (09:46)
[2019-05-01] MEDS: METOPROLOL TARTRATE 12.5 MG TAB PO SCH ×2 (09:46→20:42)
[2019-05-01] MEDS: CHOLECALCIFEROL 1,000 UNIT TAB PO SCH (09:46)
[2019-05-01 09:47] LABS: Glucose,Whole Blood 151 mg/dL (75-99)
[2019-05-01] MEDS: PANTOPRAZOLE 40 MG TABLET PO SCH (09:48)
--- NOTE | 2019-05-01 09:49 | P.PN ---
Subjective Progress Note Date: 05/01/19 This is a 58-year-old female with history of hypertension, hypothyroidism, chronic anemia who underwent aortic valve replacement with a tissue valve. Patient is sitting up in the chair. Complaints of pain at the site of the tubes. Otherwise seemed to be stable. Hemodynamically stable. No arrhythmias are noted. Cardiac output is 4.5 L.. Patient is using spirometry. AST ALT are slightly elevated Objective - Vital Signs Vital signs: Vital Signs Temp 36.4 F L 05/01/19 05:30 Pulse 61 05/01/19 08:30 Resp 11 L 05/01/19 08:30 BP 127/67 04/30/19 06:05 Pulse Ox 94 L 05/01/19 08:00 Intake & Output 04/30/19 05/01/19 05/01/19 18:59 06:59 18:59 Intake Total 130.398 0590.249 247.372 Output Total 3069 593 40 Balance -2620.066 573.249 207.372 Weight 109.6 kg Intake: IV 85 748 204 0.9% Pressure Bag 54 108 84 CO/CI 90 20 Sodium Chloride 0.9% 1, 550 100 000 ml @ 20 mls/hr IV . Q24H [facility] Rx#:[id number] Intake, IV Titration 363.934 288.249 43.372 Amount Clevidipine Butyrate 25 30.733 79.466 26 mg In Empty Bag 1 bag @ 1 MG/HR 2 mls/hr IV .Q24H [facility] Rx#:[id number] Insulin Regular 100 unit 6.910 58.783 17.372 In Sodium Chloride 0.9% 100 ml @ Per Protocol IV .Q0M [facility] Rx#:[id number] Propofol 1,000 mg In 26.291 Empty Bag 1 bag @ Titrate IV .Q0M [facility] Rx#: [id number] Sodium Chloride 0.9% 1, 300 50 000 ml @ 20 mls/hr IV . Q24H [facility] Rx#:[id number] ceFAZolin 2,000 mg In 100 Sodium Chloride 0.9% 30 ml @ Per Protocol IVPB ONCE ONE Rx#:[id number] Oral 130 Output: Chest Tube Drainage 136 146 0 Chest Tube Right Pleural/ 136 146 0 Mediastinal Urine 933 447 40 Estimated Blood Loss 1999 Other: Voiding Method Indwelling Catheter Indwelling Catheter ABP, PAP, CO, CI - Last Documented Arterial Blood Pressure 133/55 Pulmonary Artery Pressure 32/15 Cardiac Output 4.5 Cardiac Index 2.1 - Exam GENERAL EXAM: Patient is alert and oriented and doesn't appear to be in any acute distress HEENT: Normocephalic. Normal reaction of pupils, equal size, normal range of extraocular motion. No erythema or exudates in the throat. NECK: No masses, no nuchal rigidity. CHEST: No chest wall deformity. LUNGS: Diminished air exchange HEART: S1 and S2 normal. ABDOMEN: No hepatosplenomegaly, normal bowel sounds, no guarding or rigidity. SKIN: No rashes CENTRAL NERVOUS SYSTEM: No focal deficits. EXTREMITIES: No cyanosis, clubbing or edema. - Labs CBC & Chem 7: 05/01/19 05:54 05/01/19 05:54 Labs: Abnormal Lab Results - Last 24 Hours (Table) 04/24/19 04/30/19 04/30/19 Range/Units 09:25 09:12 09:59 WBC (3.8-10.6) k/uL RBC (3.80-5.40) m/uL Hgb (11.4-16.0) gm/dL Hct (34.0-46.0) % RDW (11.5-15.5) % Plt Count (150-450) k/uL Neutrophils # (1.3-7.7) k/uL Lymphocytes # (1.0-4.8) k/uL PT (9.0-12.0) sec INR (<1.2) ABG pH (7.35-7.45) ABG pCO2 (35-45) mmHg ABG pO2 226 H 261 H (83-108) mmHg ABG HCO3 (21-25) mmol/L ABG Total CO2 26 H 26 H (19-24) mmol/L ABG O2 Saturation 99.8 H 99.9 H (94-97) % ABG Hematocrit 31 L 30 L (34.0-46.0) % ABG Sodium (135-146) mmol/L ABG Potassium (3.4-4.5) mmol/L ABG Ionized Calcium (4.5-5.3) mg/dL ABG Glucose 105 H 107 H (75-99) mg/dL ABG Lactic Acid 2.5 H* (0.5-1.6) mmol/L Hemoglobin 10.2 L 9.8 L (11.4-16.0) gm/dL BUN (7-17) mg/dL Glucose (74-99) mg/dL POC Glucose (mg/dL) (75-99) mg/dL AST (14-36) U/L ALT (9-52) U/L Total Protein (6.3-8.2) g/dL Albumin (3.5-5.0) g/dL Arterial Blood Potassium (3.4-4.5) mmol/L Arterial Blood Glucose 105 H 107 H (75-99) mg/dL Crossmatch See Detail 04/30/19 04/30/19 04/30/19 Range/Units 10:29 11:13 12:03 WBC (3.8-10.6) k/uL RBC (3.80-5.40) m/uL Hgb (11.4-16.0) gm/dL Hct (34.0-46.0) % RDW (11.5-15.5) % Plt Count (150-450) k/uL Neutrophils # (1.3-7.7) k/uL Lymphocytes # (1.0-4.8) k/uL PT (9.0-12.0) sec INR (<1.2) ABG pH (7.35-7.45) ABG pCO2 (35-45) mmHg ABG pO2 260 H 360 H 214 H (83-108) mmHg ABG HCO3 (21-25) mmol/L ABG Total CO2 26 H 25 H 25 H (19-24) mmol/L ABG O2 Saturation 99.8 H 100.0 H 99.7 H (94-97) % ABG Hematocrit 26 L 25 L 29 L (34.0-46.0) % ABG Sodium 134 L (135-146) mmol/L ABG Potassium 5.3 H 5.1 H (3.4-4.5) mmol/L ABG Ionized Calcium 4.2 L 4.2 L (4.5-5.3) mg/dL ABG Glucose 178 H 176 H 143 H (75-99) mg/dL ABG Lactic Acid 2.3 H* 3.1 H* 2.4 H* (0.5-1.6) mmol/L Hemoglobin 8.5 L 8.3 L 9.4 L (11.4-16.0) gm/dL BUN (7-17) mg/dL Glucose (74-99) mg/dL POC Glucose (mg/dL) (75-99) mg/dL AST (14-36) U/L ALT (9-52) U/L Total Protein (6.3-8.2) g/dL Albumin (3.5-5.0) g/dL Arterial Blood Potassium 5.3 H 5.1 H (3.4-4.5) mmol/L Arterial Blood Glucose 178 H 176 H 143 H (75-99) mg/dL Crossmatch 04/30/19 04/30/19 04/30/19 Range/Units 12:39 12:39 12:39 WBC (3.8-10.6) k/uL RBC 3.23 L (3.80-5.40) m/uL Hgb 9.4 L D (11.4-16.0) gm/dL Hct 28.8 L (34.0-46.0) % RDW 16.3 H (11.5-15.5) % Plt Count 94 L (150-450) k/uL Neutrophils # (1.3-7.7) k/uL Lymphocytes # (1.0-4.8) k/uL PT (9.0-12.0) sec INR (<1.2) ABG pH (7.35-7.45) ABG pCO2 (35-45) mmHg ABG pO2 (83-108) mmHg ABG HCO3 (21-25) mmol/L ABG Total CO2 (19-24) mmol/L ABG O2 Saturation (94-97) % ABG Hematocrit (34.0-46.0) % ABG Sodium (135-146) mmol/L ABG Potassium (3.4-4.5) mmol/L ABG Ionized Calcium (4.5-5.3) mg/dL ABG Glucose (75-99) mg/dL ABG Lactic Acid (0.5-1.6) mmol/L Hemoglobin (11.4-16.0) gm/dL BUN (7-17) mg/dL Glucose 115 H (74-99) mg/dL POC Glucose (mg/dL) 114 H (75-99) mg/dL AST 155 H (14-36) U/L ALT 86 H (9-52) U/L Total Protein 5.4 L (6.3-8.2) g/dL Albumin 2.7 L (3.5-5.0) g/dL Arterial Blood Potassium (3.4-4.5) mmol/L Arterial Blood Glucose (75-99) mg/dL Crossmatch 04/30/19 04/30/19 04/30/19 Range/Units 12:39 13:04 13:16 WBC (3.8-10.6) k/uL RBC (3.80-5.40) m/uL Hgb (11.4-16.0) gm/dL Hct (34.0-46.0) % RDW (11.5-15.5) % Plt Count (150-450) k/uL Neutrophils # (1.3-7.7) k/uL Lymphocytes # (1.0-4.8) k/uL PT 14.1 H (9.0-12.0) sec INR 1.4 H (<1.2) ABG pH 7.27 L (7.35-7.45) ABG pCO2 60 H (35-45) mmHg ABG pO2 >400 H (83-108) mmHg ABG HCO3 27 H (21-25) mmol/L ABG Total CO2 29 H (19-24) mmol/L ABG O2 Saturation 100.0 H (94-97) % ABG Hematocrit (34.0-46.0) % ABG Sodium (135-146) mmol/L ABG Potassium (3.4-4.5) mmol/L ABG Ionized Calcium (4.5-5.3) mg/dL ABG Glucose (75-99) mg/dL ABG Lactic Acid (0.5-1.6) mmol/L Hemoglobin (11.4-16.0) gm/dL BUN (7-17) mg/dL Glucose (74-99) mg/dL POC Glucose (mg/dL) 100 H (75-99) mg/dL AST (14-36) U/L ALT (9-52) U/L Total Protein (6.3-8.2) g/dL Albumin (3.5-5.0) g/dL Arterial Blood Potassium (3.4-4.5) mmol/L Arterial Blood Glucose (75-99) mg/dL Crossmatch 04/30/19 04/30/19 04/30/19 Range/Units 14:03 15:00 15:14 WBC (3.8-10.6) k/uL RBC 3.71 L (3.80-5.40) m/uL Hgb 10.9 L (11.4-16.0) gm/dL Hct 33.1 L (34.0-46.0) % RDW 16.3 H (11.5-15.5) % Plt Count (150-450) k/uL Neutrophils # 8.2 H (1.3-7.7) k/uL Lymphocytes # (1.0-4.8) k/uL PT (9.0-12.0) sec INR (<1.2) ABG pH (7.35-7.45) ABG pCO2 (35-45) mmHg ABG pO2 (83-108) mmHg ABG HCO3 (21-25) mmol/L ABG Total CO2 (19-24) mmol/L ABG O2 Saturation (94-97) % ABG Hematocrit (34.0-46.0) % ABG Sodium (135-146) mmol/L ABG Potassium (3.4-4.5) mmol/L ABG Ionized Calcium (4.5-5.3) mg/dL ABG Glucose (75-99) mg/dL ABG Lactic Acid (0.5-1.6) mmol/L Hemoglobin (11.4-16.0) gm/dL BUN (7-17) mg/dL Glucose (74-99) mg/dL POC Glucose (mg/dL) 103 H 142 H (75-99) mg/dL AST (14-36) U/L ALT (9-52) U/L Total Protein (6.3-8.2) g/dL Albumin (3.5-5.0) g/dL Arterial Blood Potassium (3.4-4.5) mmol/L Arterial Blood Glucose (75-99) mg/dL Crossmatch 04/30/19 04/30/19 04/30/19 Range/Units 15:46 16:12 16:55 WBC (3.8-10.6) k/uL RBC (3.80-5.40) m/uL Hgb (11.4-16.0) gm/dL Hct (34.0-46.0) % RDW (11.5-15.5) % Plt Count (150-450) k/uL Neutrophils # (1.3-7.7) k/uL Lymphocytes # (1.0-4.8) k/uL PT (9.0-12.0) sec INR (<1.2) ABG pH (7.35-7.45) ABG pCO2 46 H (35-45) mmHg ABG pO2 (83-108) mmHg ABG HCO3 (21-25) mmol/L ABG Total CO2 27 H (19-24) mmol/L ABG O2 Saturation 97.3 H (94-97) % ABG Hematocrit (34.0-46.0) % ABG Sodium (135-146) mmol/L ABG Potassium (3.4-4.5) mmol/L ABG Ionized Calcium (4.5-5.3) mg/dL ABG Glucose (75-99) mg/dL ABG Lactic Acid (0.5-1.6) mmol/L Hemoglobin (11.4-16.0) gm/dL BUN (7-17) mg/dL Glucose (74-99) mg/dL POC Glucose (mg/dL) 165 H 166 H (75-99) mg/dL AST (14-36) U/L ALT (9-52) U/L Total Protein (6.3-8.2) g/dL Albumin (3.5-5.0) g/dL Arterial Blood Potassium (3.4-4.5) mmol/L Arterial Blood Glucose (75-99) mg/dL Crossmatch 04/30/19 04/30/19 04/30/19 Range/Units 18:05 18:59 20:07 WBC (3.8-10.6) k/uL RBC (3.80-5.40) m/uL Hgb (11.4-16.0) gm/dL Hct (34.0-46.0) % RDW (11.5-15.5) % Plt Count (150-450) k/uL Neutrophils # (1.3-7.7) k/uL Lymphocytes # (1.0-4.8) k/uL PT (9.0-12.0) sec INR (<1.2) ABG pH (7.35-7.45) ABG pCO2 (35-45) mmHg ABG pO2 (83-108) mmHg ABG HCO3 (21-25) mmol/L ABG Total CO2 (19-24) mmol/L ABG O2 Saturation (94-97) % ABG Hematocrit (34.0-46.0) % ABG Sodium (135-146) mmol/L ABG Potassium (3.4-4.5) mmol/L ABG Ionized Calcium (4.5-5.3) mg/dL ABG Glucose (75-99) mg/dL ABG Lactic Acid (0.5-1.6) mmol/L Hemoglobin (11.4-16.0) gm/dL BUN (7-17) mg/dL Glucose (74-99) mg/dL POC Glucose (mg/dL) 153 H 159 H 150 H (75-99) mg/dL AST (14-36) U/L ALT (9-52) U/L Total Protein (6.3-8.2) g/dL Albumin (3.5-5.0) g/dL Arterial Blood Potassium (3.4-4.5) mmol/L Arterial Blood Glucose (75-99) mg/dL Crossmatch 04/30/19 04/30/19 04/30/19 Range/Units 20:54 21:57 22:58 WBC (3.8-10.6) k/uL RBC (3.80-5.40) m/uL Hgb (11.4-16.0) gm/dL Hct (34.0-46.0) % RDW (11.5-15.5) % Plt Count (150-450) k/uL Neutrophils # (1.3-7.7) k/uL Lymphocytes # (1.0-4.8) k/uL PT (9.0-12.0) sec INR (<1.2) ABG pH (7.35-7.45) ABG pCO2 (35-45) mmHg ABG pO2 (83-108) mmHg ABG HCO3 (21-25) mmol/L ABG Total CO2 (19-24) mmol/L ABG O2 Saturation (94-97) % ABG Hematocrit (34.0-46.0) % ABG Sodium (135-146) mmol/L ABG Potassium (3.4-4.5) mmol/L ABG Ionized Calcium (4.5-5.3) mg/dL ABG Glucose (75-99) mg/dL ABG Lactic Acid (0.5-1.6) mmol/L Hemoglobin (11.4-16.0) gm/dL BUN (7-17) mg/dL Glucose (74-99) mg/dL POC Glucose (mg/dL) 149 H 165 H 151 H (75-99) mg/dL AST (14-36) U/L ALT (9-52) U/L Total Protein (6.3-8.2) g/dL Albumin (3.5-5.0) g/dL Arterial Blood Potassium (3.4-4.5) mmol/L Arterial Blood Glucose (75-99) mg/dL Crossmatch 04/30/19 04/30/19 05/01/19 Range/Units 23:58 Unknown 01:00 WBC 11.6 H (3.8-10.6) k/uL RBC (3.80-5.40) m/uL Hgb 11.1 L (11.4-16.0) gm/dL Hct (34.0-46.0) % RDW 16.1 H (11.5-15.5) % Plt Count 145 L (150-450) k/uL Neutrophils # 10.5 H (1.3-7.7) k/uL Lymphocytes # 0.7 L (1.0-4.8) k/uL PT (9.0-12.0) sec INR (<1.2) ABG pH (7.35-7.45) ABG pCO2 (35-45) mmHg ABG pO2 (83-108) mmHg ABG HCO3 (21-25) mmol/L ABG Total CO2 (19-24) mmol/L ABG O2 Saturation (94-97) % ABG Hematocrit (34.0-46.0) % ABG Sodium (135-146) mmol/L ABG Potassium (3.4-4.5) mmol/L ABG Ionized Calcium (4.5-5.3) mg/dL ABG Glucose (75-99) mg/dL ABG Lactic Acid (0.5-1.6) mmol/L Hemoglobin (11.4-16.0) gm/dL BUN (7-17) mg/dL Glucose (74-99) mg/dL POC Glucose (mg/dL) 147 H 135 H (75-99) mg/dL AST (14-36) U/L ALT (9-52) U/L Total Protein (6.3-8.2) g/dL Albumin (3.5-5.0) g/dL Arterial Blood Potassium (3.4-4.5) mmol/L Arterial Blood Glucose (75-99) mg/dL Crossmatch 05/01/19 05/01/19 05/01/19 Range/Units 01:57 02:53 05:10 WBC (3.8-10.6) k/uL RBC (3.80-5.40) m/uL Hgb (11.4-16.0) gm/dL Hct (34.0-46.0) % RDW (11.5-15.5) % Plt Count (150-450) k/uL Neutrophils # (1.3-7.7) k/uL Lymphocytes # (1.0-4.8) k/uL PT (9.0-12.0) sec INR (<1.2) ABG pH (7.35-7.45) ABG pCO2 (35-45) mmHg ABG pO2 (83-108) mmHg ABG HCO3 (21-25) mmol/L ABG Total CO2 (19-24) mmol/L ABG O2 Saturation (94-97) % ABG Hematocrit (34.0-46.0) % ABG Sodium (135-146) mmol/L ABG Potassium (3.4-4.5) mmol/L ABG Ionized Calcium (4.5-5.3) mg/dL ABG Glucose (75-99) mg/dL ABG Lactic Acid (0.5-1.6) mmol/L Hemoglobin (11.4-16.0) gm/dL BUN (7-17) mg/dL Glucose (74-99) mg/dL POC Glucose (mg/dL) 125 H 125 H 117 H (75-99) mg/dL AST (14-36) U/L ALT (9-52) U/L Total Protein (6.3-8.2) g/dL Albumin (3.5-5.0) g/dL Arterial Blood Potassium (3.4-4.5) mmol/L Arterial Blood Glucose (75-99) mg/dL Crossmatch 05/01/19 05/01/19 05/01/19 Range/Units 05:54 05:54 06:15 WBC 15.8 H (3.8-10.6) k/uL RBC (3.80-5.40) m/uL Hgb (11.4-16.0) gm/dL Hct (34.0-46.0) % RDW 16.3 H (11.5-15.5) % Plt Count (150-450) k/uL Neutrophils # 13.5 H (1.3-7.7) k/uL Lymphocytes # (1.0-4.8) k/uL PT (9.0-12.0) sec INR (<1.2) ABG pH (7.35-7.45) ABG pCO2 (35-45) mmHg ABG pO2 (83-108) mmHg ABG HCO3 (21-25) mmol/L ABG Total CO2 (19-24) mmol/L ABG O2 Saturation (94-97) % ABG Hematocrit (34.0-46.0) % ABG Sodium (135-146) mmol/L ABG Potassium (3.4-4.5) mmol/L ABG Ionized Calcium (4.5-5.3) mg/dL ABG Glucose (75-99) mg/dL ABG Lactic Acid (0.5-1.6) mmol/L Hemoglobin (11.4-16.0) gm/dL BUN 18 H (7-17) mg/dL Glucose 127 H (74-99) mg/dL POC Glucose (mg/dL) 123 H (75-99) mg/dL AST 171 H (14-36) U/L ALT 88 H (9-52) U/L Total Protein (6.3-8.2) g/dL Albumin (3.5-5.0) g/dL Arterial Blood Potassium (3.4-4.5) mmol/L Arterial Blood Glucose (75-99) mg/dL Crossmatch 05/01/19 Range/Units 08:09 WBC (3.8-10.6) k/uL RBC (3.80-5.40) m/uL Hgb (11.4-16.0) gm/dL Hct (34.0-46.0) % RDW (11.5-15.5) % Plt Count (150-450) k/uL Neutrophils # (1.3-7.7) k/uL Lymphocytes # (1.0-4.8) k/uL PT (9.0-12.0) sec INR (<1.2) ABG pH (7.35-7.45) ABG pCO2 (35-45) mmHg ABG pO2 (83-108) mmHg ABG HCO3 (21-25) mmol/L ABG Total CO2 (19-24) mmol/L ABG O2 Saturation (94-97) % ABG Hematocrit (34.0-46.0) % ABG Sodium (135-146) mmol/L ABG Potassium (3.4-4.5) mmol/L ABG Ionized Calcium (4.5-5.3) mg/dL ABG Glucose (75-99) mg/dL ABG Lactic Acid (0.5-1.6) mmol/L Hemoglobin (11.4-16.0) gm/dL BUN (7-17) mg/dL Glucose (74-99) mg/dL POC Glucose (mg/dL) 134 H (75-99) mg/dL AST (14-36) U/L ALT (9-52) U/L Total Protein (6.3-8.2) g/dL Albumin (3.5-5.0) g/dL Arterial Blood Potassium (3.4-4.5) mmol/L Arterial Blood Glucose (75-99) mg/dL Crossmatch Assessment and Plan (1) Status post aortic valve replacement Current Visit: Yes Status: Acute Code(s): Z95.2 - PRESENCE OF PROSTHETIC HEART VALVE SNOMED Code(s): 2370173670949 (2) Hypertension, essential Current Visit: Yes Status: Acute Code(s): I10 - ESSENTIAL (PRIMARY) HYPERTENSION SNOMED Code(s): 89310314 (3) Chronic anemia Current Visit: Yes Status: Acute Code(s): D64.9 - ANEMIA, UNSPECIFIED SNOMED Code(s): 481038955 Plan: Overall, patient is hemodynamically stable. No arrhythmias noted. Continue current management. Increase activity as tolerated. Incentive spirometry. We'll follow
[2019-05-01 10:10] VITALS: BMI 38.9
[2019-05-01 10:35] LABS: Glucose,Whole Blood 172 mg/dL (75-99)
[2019-05-01] MEDS ORDERED: LISINOPRIL 2.5 MG TAB PO SCH (12:00)
[2019-05-01 12:19] LABS: Glucose,Whole Blood 133 mg/dL (75-99)
--- NOTE | 2019-05-01 13:15 | P.PN ---
Subjective Progress Note Date: 05/01/19 Principal diagnosis: Status post aortic valve replacement, postoperative day #1 This is a 58-year-old female with known history of hypertension, fatty liver, hypothyroidism, patient was recently diagnosed with severe aortic stenosis, aortic valve area was calculated to be in the range of 1 cm there was also evidence of [id number] aortic regurgitation, there was no evidence of significant coronary artery disease on her most recent cardiac catheterization. Patient underwent elective aortic valve replacement today, and postoperatively she was on mechanical ventilation, hence I was asked to see her on consultation. Presently the patient is on SIMV mode of mechanical ventilation, rate of 18, tidal volume of 400, FiO2 is 40%, and PEEP of 5. ABG showed a pO2 of 214 pCO2 of 44 pH of 7.35. Postoperative chest x-ray showed adequate placement of the endotracheal tube, orogastric tube, and a right sided chest tube. There was no evidence of pneumothorax. It was basically a satisfactory postoperative chest x-ray. Reevaluated today on 05/01/2019, patient was extubated a few hours after I saw her yesterday, she is presently on few liters nasal cannula, asymptomatic, does have some vague incisional pain in the chest. No shortness of breath no cough no wheezing. Chest x-ray is relatively unremarkable. Postoperative trace of bilateral pleural effusions noted and subsegmental atelectasis, expected findings after cardiac surgery. WBC count today is 15.8 hemoglobin is 11.5. Basic metabolic profile is normal. Objective - Vital Signs Vital signs: Vital Signs Temp 36.4 F L 05/01/19 05:30 Pulse 58 L 05/01/19 13:00 Resp 10 L 05/01/19 13:00 BP 127/67 04/30/19 06:05 Pulse Ox 93 L 05/01/19 13:00 Intake & Output 04/30/19 05/01/19 05/01/19 18:59 06:59 18:59 Intake Total 700.954 7734.249 866.222 Output Total 3069 593 235 Balance -2620.066 573.249 631.222 Weight 109.6 kg 109.6 kg Intake: IV 85 748 432 0.9% Pressure Bag 54 108 102 CO/CI 90 20 Sodium Chloride 0.9% 1, 550 210 000 ml @ 20 mls/hr IV . Q24H [facility] Rx#:[id number] ceFAZolin 2 gm In Sodium 100 Chloride 0.9% 50 ml @ 100 mls/hr IVPB Q8HR [facility] Rx# :[id number] Intake, IV Titration 363.934 288.249 64.222 Amount Clevidipine Butyrate 25 30.733 79.466 29.2 mg In Empty Bag 1 bag @ 1 MG/HR 2 mls/hr IV .Q24H [facility] Rx#:[id number] Insulin Regular 100 unit 6.910 58.783 35.022 In Sodium Chloride 0.9% 100 ml @ Per Protocol IV .Q0M [facility] Rx#:[id number] Propofol 1,000 mg In 26.291 Empty Bag 1 bag @ Titrate IV .Q0M [facility] Rx#: [id number] Sodium Chloride 0.9% 1, 300 50 000 ml @ 20 mls/hr IV . Q24H [facility] Rx#:[id number] ceFAZolin 2,000 mg In 100 Sodium Chloride 0.9% 30 ml @ Per Protocol IVPB ONCE ONE Rx#:[id number] Oral 130 370 Output: Chest Tube Drainage 136 146 0 Chest Tube Right Pleural/ 136 146 0 Mediastinal Urine 933 447 235 Estimated Blood Loss 1999 Other: Voiding Method Indwelling Catheter Indwelling Catheter Indwelling Catheter ABP, PAP, CO, CI - Last Documented Arterial Blood Pressure 127/50 Pulmonary Artery Pressure 190/190 Cardiac Output 4.5 Cardiac Index 2.1 - Exam Physical exam revealed a 58-year-old female in no distress, on 2 L nasal cannula. HEAD: Normocephalic/atraumatic. EYES: PERRLA, EOMI, no icterus. NOSE: Clear with pink turbinates. THROAT: No erythema or exudates. NECK: No masses, no JVD, no thyroid enlargement, no adenopathy. CHEST: No chest wall deformity. Symmetrical expansion. LUNGS: Diminished breath sounds at the bases no crackles or rhonchi or wheezes. CVS: Regular rate and rhythm, normal S1 and S2, no gallops, no murmurs, no rubs ABDOMEN: Soft, nontender. No hepatosplenomegaly, normal bowel sounds, no guarding or rigidity. EXTREMITIES: No clubbing, no edema, no cyanosis, 2+ pulses and upper and lower extremities. SPINE: No scoliosis or deformity SKIN: No rashes CENTRAL NERVOUS SYSTEM: Alert oriented 3, no gross focal deficit. - Labs CBC & Chem 7: 05/01/19 05:54 05/01/19 05:54 Labs: Abnormal Lab Results - Last 24 Hours (Table) 04/24/19 04/30/19 04/30/19 Range/Units 09:25 12:39 12:39 WBC (3.8-10.6) k/uL RBC 3.23 L (3.80-5.40) m/uL Hgb 9.4 L D (11.4-16.0) gm/dL Hct 28.8 L (34.0-46.0) % RDW 16.3 H (11.5-15.5) % Plt Count 94 L (150-450) k/uL Neutrophils # (1.3-7.7) k/uL Lymphocytes # (1.0-4.8) k/uL ABG pH (7.35-7.45) ABG pCO2 (35-45) mmHg ABG pO2 (83-108) mmHg ABG HCO3 (21-25) mmol/L ABG Total CO2 (19-24) mmol/L ABG O2 Saturation (94-97) % BUN (7-17) mg/dL Glucose 115 H (74-99) mg/dL POC Glucose (mg/dL) (75-99) mg/dL AST 155 H (14-36) U/L ALT 86 H (9-52) U/L Total Protein 5.4 L (6.3-8.2) g/dL Albumin 2.7 L (3.5-5.0) g/dL Crossmatch See Detail 04/30/19 04/30/19 04/30/19 Range/Units 13:04 13:16 14:03 WBC (3.8-10.6) k/uL RBC (3.80-5.40) m/uL Hgb (11.4-16.0) gm/dL Hct (34.0-46.0) % RDW (11.5-15.5) % Plt Count (150-450) k/uL Neutrophils # (1.3-7.7) k/uL Lymphocytes # (1.0-4.8) k/uL ABG pH 7.27 L (7.35-7.45) ABG pCO2 60 H (35-45) mmHg ABG pO2 >400 H (83-108) mmHg ABG HCO3 27 H (21-25) mmol/L ABG Total CO2 29 H (19-24) mmol/L ABG O2 Saturation 100.0 H (94-97) % BUN (7-17) mg/dL Glucose (74-99) mg/dL POC Glucose (mg/dL) 100 H 103 H (75-99) mg/dL AST (14-36) U/L ALT (9-52) U/L Total Protein (6.3-8.2) g/dL Albumin (3.5-5.0) g/dL Crossmatch 04/30/19 04/30/19 04/30/19 Range/Units 15:00 15:14 15:46 WBC (3.8-10.6) k/uL RBC 3.71 L (3.80-5.40) m/uL Hgb 10.9 L (11.4-16.0) gm/dL Hct 33.1 L (34.0-46.0) % RDW 16.3 H (11.5-15.5) % Plt Count (150-450) k/uL Neutrophils # 8.2 H (1.3-7.7) k/uL Lymphocytes # (1.0-4.8) k/uL ABG pH (7.35-7.45) ABG pCO2 46 H (35-45) mmHg ABG pO2 (83-108) mmHg ABG HCO3 (21-25) mmol/L ABG Total CO2 27 H (19-24) mmol/L ABG O2 Saturation 97.3 H (94-97) % BUN (7-17) mg/dL Glucose (74-99) mg/dL POC Glucose (mg/dL) 142 H (75-99) mg/dL AST (14-36) U/L ALT (9-52) U/L Total Protein (6.3-8.2) g/dL Albumin (3.5-5.0) g/dL Crossmatch 04/30/19 04/30/19 04/30/19 Range/Units 16:12 16:55 18:05 WBC (3.8-10.6) k/uL RBC (3.80-5.40) m/uL Hgb (11.4-16.0) gm/dL Hct (34.0-46.0) % RDW (11.5-15.5) % Plt Count (150-450) k/uL Neutrophils # (1.3-7.7) k/uL Lymphocytes # (1.0-4.8) k/uL ABG pH (7.35-7.45) ABG pCO2 (35-45) mmHg ABG pO2 (83-108) mmHg ABG HCO3 (21-25) mmol/L ABG Total CO2 (19-24) mmol/L ABG O2 Saturation (94-97) % BUN (7-17) mg/dL Glucose (74-99) mg/dL POC Glucose (mg/dL) 165 H 166 H 153 H (75-99) mg/dL AST (14-36) U/L ALT (9-52) U/L Total Protein (6.3-8.2) g/dL Albumin (3.5-5.0) g/dL Crossmatch 04/30/19 04/30/19 04/30/19 Range/Units 18:59 20:07 20:54 WBC (3.8-10.6) k/uL RBC (3.80-5.40) m/uL Hgb (11.4-16.0) gm/dL Hct (34.0-46.0) % RDW (11.5-15.5) % Plt Count (150-450) k/uL Neutrophils # (1.3-7.7) k/uL Lymphocytes # (1.0-4.8) k/uL ABG pH (7.35-7.45) ABG pCO2 (35-45) mmHg ABG pO2 (83-108) mmHg ABG HCO3 (21-25) mmol/L ABG Total CO2 (19-24) mmol/L ABG O2 Saturation (94-97) % BUN (7-17) mg/dL Glucose (74-99) mg/dL POC Glucose (mg/dL) 159 H 150 H 149 H (75-99) mg/dL AST (14-36) U/L ALT (9-52) U/L Total Protein (6.3-8.2) g/dL Albumin (3.5-5.0) g/dL Crossmatch 04/30/19 04/30/19 04/30/19 Range/Units 21:57 22:58 23:58 WBC (3.8-10.6) k/uL RBC (3.80-5.40) m/uL Hgb (11.4-16.0) gm/dL Hct (34.0-46.0) % RDW (11.5-15.5) % Plt Count (150-450) k/uL Neutrophils # (1.3-7.7) k/uL Lymphocytes # (1.0-4.8) k/uL ABG pH (7.35-7.45) ABG pCO2 (35-45) mmHg ABG pO2 (83-108) mmHg ABG HCO3 (21-25) mmol/L ABG Total CO2 (19-24) mmol/L ABG O2 Saturation (94-97) % BUN (7-17) mg/dL Glucose (74-99) mg/dL POC Glucose (mg/dL) 165 H 151 H 147 H (75-99) mg/dL AST (14-36) U/L ALT (9-52) U/L Total Protein (6.3-8.2) g/dL Albumin (3.5-5.0) g/dL Crossmatch 04/30/19 05/01/19 05/01/19 Range/Units Unknown 01:00 01:57 WBC 11.6 H (3.8-10.6) k/uL RBC (3.80-5.40) m/uL Hgb 11.1 L (11.4-16.0) gm/dL Hct (34.0-46.0) % RDW 16.1 H (11.5-15.5) % Plt Count 145 L (150-450) k/uL Neutrophils # 10.5 H (1.3-7.7) k/uL Lymphocytes # 0.7 L (1.0-4.8) k/uL ABG pH (7.35-7.45) ABG pCO2 (35-45) mmHg ABG pO2 (83-108) mmHg ABG HCO3 (21-25) mmol/L ABG Total CO2 (19-24) mmol/L ABG O2 Saturation (94-97) % BUN (7-17) mg/dL Glucose (74-99) mg/dL POC Glucose (mg/dL) 135 H 125 H (75-99) mg/dL AST (14-36) U/L ALT (9-52) U/L Total Protein (6.3-8.2) g/dL Albumin (3.5-5.0) g/dL Crossmatch 05/01/19 05/01/19 05/01/19 Range/Units 02:53 05:10 05:54 WBC 15.8 H (3.8-10.6) k/uL RBC (3.80-5.40) m/uL Hgb (11.4-16.0) gm/dL Hct (34.0-46.0) % RDW 16.3 H (11.5-15.5) % Plt Count (150-450) k/uL Neutrophils # 13.5 H (1.3-7.7) k/uL Lymphocytes # (1.0-4.8) k/uL ABG pH (7.35-7.45) ABG pCO2 (35-45) mmHg ABG pO2 (83-108) mmHg ABG HCO3 (21-25) mmol/L ABG Total CO2 (19-24) mmol/L ABG O2 Saturation (94-97) % BUN (7-17) mg/dL Glucose (74-99) mg/dL POC Glucose (mg/dL) 125 H 117 H (75-99) mg/dL AST (14-36) U/L ALT (9-52) U/L Total Protein (6.3-8.2) g/dL Albumin (3.5-5.0) g/dL Crossmatch 05/01/19 05/01/19 05/01/19 Range/Units 05:54 06:15 08:09 WBC (3.8-10.6) k/uL RBC (3.80-5.40) m/uL Hgb (11.4-16.0) gm/dL Hct (34.0-46.0) % RDW (11.5-15.5) % Plt Count (150-450) k/uL Neutrophils # (1.3-7.7) k/uL Lymphocytes # (1.0-4.8) k/uL ABG pH (7.35-7.45) ABG pCO2 (35-45) mmHg ABG pO2 (83-108) mmHg ABG HCO3 (21-25) mmol/L ABG Total CO2 (19-24) mmol/L ABG O2 Saturation (94-97) % BUN 18 H (7-17) mg/dL Glucose 127 H (74-99) mg/dL POC Glucose (mg/dL) 123 H 134 H (75-99) mg/dL AST 171 H (14-36) U/L ALT 88 H (9-52) U/L Total Protein (6.3-8.2) g/dL Albumin (3.5-5.0) g/dL Crossmatch 05/01/19 05/01/19 05/01/19 Range/Units 09:35 10:23 12:07 WBC (3.8-10.6) k/uL RBC (3.80-5.40) m/uL Hgb (11.4-16.0) gm/dL Hct (34.0-46.0) % RDW (11.5-15.5) % Plt Count (150-450) k/uL Neutrophils # (1.3-7.7) k/uL Lymphocytes # (1.0-4.8) k/uL ABG pH (7.35-7.45) ABG pCO2 (35-45) mmHg ABG pO2 (83-108) mmHg ABG HCO3 (21-25) mmol/L ABG Total CO2 (19-24) mmol/L ABG O2 Saturation (94-97) % BUN (7-17) mg/dL Glucose (74-99) mg/dL POC Glucose (mg/dL) 151 H 172 H 133 H (75-99) mg/dL AST (14-36) U/L ALT (9-52) U/L Total Protein (6.3-8.2) g/dL Albumin (3.5-5.0) g/dL Crossmatch Assessment and Plan Assessment: Impression: Status post aortic valve replacement with a #23 mm bioprosthetic aortic valve, clip ligation of left atrial appendage. Postoperative day #1 History of benign essential hypertension. Postoperative atelectasis, expected findings. Recommendation: Continue oxygen and titrate to keep O2 saturation above 90%, con tinue incentive spirometry, updrafts, early ambulation, aspirin, Plavix, beta blockers, discontinue mediastinal chest tube, continue right-sided pleural chest tube, continue GI and DVT prophylaxis, increase activity as tolerated, continue insulin as per protocol. We'll continue to follow. Time with Patient: Less than 30
[2019-05-01 13:21] LABS: Glucose,Whole Blood 129 mg/dL (75-99)
[2019-05-01 14:11] LABS: Hemoglobin A1C 5.8 % (4.0-6.0)
[2019-05-01 14:42] LABS: Glucose,Whole Blood 131 mg/dL (75-99)
[2019-05-01] MEDS: LISINOPRIL 2.5 MG TAB PO STA ×2 (15:20→15:30)
[2019-05-01] MEDS ORDERED: LISINOPRIL 2.5 MG TAB PO STA (16:52)
[2019-05-01 17:23] LABS: Glucose,Whole Blood 112 mg/dL (75-99)
[2019-05-01] MEDS: INSULIN REGULAR 100 UNIT in SODIUM CHLORIDE 0.9% 100 ML IV SCH (18:36)
[2019-05-01 18:45] LABS: Glucose,Whole Blood 158 mg/dL (75-99)
[2019-05-01 20:31] LABS: Glucose,Whole Blood 145 mg/dL (75-99)
[2019-05-01] MEDS: SENNOSIDES-DOCUSATE SODIUM 1 EACH TAB PO SCH (20:42)
[2019-05-01] MEDS: SODIUM CHLORIDE 0.9% 1,000 ML IV SCH (20:51)
--- NOTE | 2019-05-01 22:36 | P.CONS ---
History of Present Illness - Reason for Consult Consult date: 05/01/19 Medical management Requesting physician: Pipo Hines - Chief Complaint Aortic valve replacement - History of Present Illness Consultation: This is a 58-year-old patient of Dr. Carlson. Chronic stable medical conditions include hypertension, hypothyroid, fatty liver, depression. Patient has undergone aortic valve replacement. Was successfully extubated. Laying in bed. Her nausea vomiting. Slightly short of breath. On nasal cannula. No carotid artery disease. Patient is earlier taken to full liquid diet. Laying in bed. Review of systems: GEN.: Tired EYES: None HEENT: None NECK: None RESPIRATORY: Some shortness of breath CARDIOVASCULAR: None GASTROINTESTINAL: None GENITOURINARY: None MUSCULOSKELETAL: None LYMPHATICS: None HEMATOLOGICAL: None PSYCHIATRY: None NEUROLOGICAL: None Social history: Lives alone. Smokes half a pack and about 40 years stopped in 2017. No alcohol. Family history: Reviewed, unremarkable Physical examination: VITAL SIGNS: 97.7, 60, 14, 137 x 50, 92% on 5 L GENERAL: BMI 39, laying in bed awake. EYES: Pupils equal. Conjunctiva normal. HEENT: External appearance of nose and ears normal, oral cavity grossly normal. NECK: JVD unable to assess; masses not palpable. HEART: First and second heart sounds are normal; no edema. LUNGS: Respiratory rate increased, decreased breath sounds. ABDOMEN: Soft, nontender, liver spleen not palpable, no masses palpable. PSYCH: Alert and oriented x3; mood and affect normal. NEUROLOGICAL: Cranial nerves grossly intact; no facial asymmetry, power and sensation grossly intact. LYMPHATICS: No lymph nodes palpable in the axilla and neck Investigations, reviewed in the clinical context: White count 15.8 hemoglobin 11.5 platelets 168 potassium 5.1 creatinine 0.77 Chest x-ray film personally personally reviewed by [id number] atelectasis Assessment: -Aortic valve replacement with Simon bioprosthetic aortic valve with clip ligation of the left atrial appendage an intraoperative TREY -Obesity BMI 39.0 -Essential hypertension -Hepatic steatosis -Hypothyroidism -Depression otherwise specified Plan: Patient's current medications include DuoNeb, status post IV amiodarone, home medications resumed. Subcu heparin, IV insulin, Lopressor ANDRY inhibitor. Care was discussed with the patient. Questions were answered. Thank your Dr. Hines Past Medical History Past Medical History: Chest Pain / Angina, Hypertension, Liver Disease, Thyroid Disorder Additional Past Medical History / Comment(s): SOB, palpitations, heart murmur, enlarged/fatty liver, anemia History of Any Multi-Drug Resistant Organisms: None Reported Past Surgical History: Appendectomy, Cholecystectomy, Heart Catheterization, Orthopedic Surgery, Tubal Ligation Additional Past Surgical History / Comment(s): TREY,thyroidectomy, bunionectomy rt foot Past Anesthesia/Blood Transfusion Reactions: Postoperative Nausea & Vomiting (PO NV) Additional Past Anesthesia/Blood Transfusion Reaction / Comm: no hx blood transfusion Smoking Status: Former smoker - Past Family History Mother Family Medical History: No Reported History Medications and Allergies Home Medications Medication Instructions Recorded Confirmed Type Cholecalciferol (Vitamin D3) 2,000 unit PO DAILY 03/27/19 04/30/19 History [Vitamin D3] Citalopram Hydrobromide [CeleXA] 40 mg PO QAM 03/27/19 04/30/19 History Famotidine [Pepcid] 20 mg PO BID 03/27/19 04/30/19 History Ferrous Sulfate [Iron] 325 mg PO BID 03/27/19 04/30/19 History Levothyroxine Sodium [Synthroid] 125 mcg PO QAM 03/27/19 04/30/19 History HYDROcodone/APAP 5-325MG [[place] 1 tab PO Q6HR PRN 04/24/19 04/30/19 History 5-325] amLODIPine [Norvasc] 5 mg PO HS 04/24/19 04/30/19 History Aspirin 325 tab PO DAILY 04/30/19 04/30/19 History Allergies Allergy/AdvReac Type Severity Reaction Status Date / Time Iodinated Contrast- Oral and Allergy Severe Vomiting/ra Verified 04/30/19 13:03 IV Dye sh/itching latex Allergy Itching/queta Verified 04/30/19 13:03 h adhesive tape Allergy Itching/queta Uncoded 03/27/19 13:15 h Physical Exam Vitals: Vital Signs Temp Pulse Pulse Resp Pulse Ox 05/01/19 10:00 59 L 14 93 L 05/01/19 09:30 62 16 94 L 05/01/19 09:00 64 22 92 L 05/01/19 08:30 61 11 L 05/01/19 08:22 62 05/01/19 08:12 58 L 05/01/19 08:00 60 18 94 L 05/01/19 07:30 61 18 05/01/19 07:00 60 20 96 05/01/19 06:30 59 L 15 95 05/01/19 06:00 59 L 10 L 93 L 05/01/19 05:30 36.4 F L 60 17 94 L 05/01/19 05:00 60 75 20 94 L 05/01/19 04:30 59 L 11 L 94 L 05/01/19 04:00 60 11 L 94 L 05/01/19 03:30 60 17 05/01/19 03:00 60 13 93 L 05/01/19 02:30 63 14 94 L 05/01/19 02:00 63 28 H 93 L 05/01/19 01:30 66 12 94 L 05/01/19 01:00 65 15 92 L 05/01/19 00:30 64 8 L 94 L 05/01/19 00:00 65 11 L 93 L 04/30/19 23:30 69 11 L 93 L 04/30/19 23:14 68 13 93 L 04/30/19 23:00 71 14 94 L 04/30/19 22:30 80 12 94 L 04/30/19 22:00 81 20 94 L 04/30/19 21:30 86 12 94 L 04/30/19 21:01 85 04/30/19 21:00 83 21 96 04/30/19 20:54 83 04/30/19 20:30 86 16 94 L 04/30/19 20:00 97.3 F L 82 19 94 L 04/30/19 19:30 85 20 94 L 04/30/19 19:00 97.3 F L 81 13 95 04/30/19 18:30 84 17 95 04/30/19 18:00 85 14 94 L 04/30/19 17:30 87 13 97 04/30/19 17:00 81 18 96 04/30/19 16:40 81 17 94 L 04/30/19 16:30 84 17 95 04/30/19 16:20 87 17 95 04/30/19 16:10 85 20 93 L 04/30/19 16:00 97.5 F L 89 25 H 91 L 04/30/19 15:50 84 15 95 04/30/19 15:40 78 14 95 04/30/19 15:31 81 18 97 04/30/19 15:28 85 04/30/19 15:20 89 18 95 04/30/19 15:10 84 18 94 L 04/30/19 15:01 97.9 F 84 18 94 L 04/30/19 14:50 97.7 F 84 18 95 04/30/19 14:40 97.7 F 79 18 94 L 04/30/19 14:30 97.5 F L 76 18 96 04/30/19 14:20 77 18 97 04/30/19 14:10 71 18 99 04/30/19 14:00 96.8 F L 76 18 99 04/30/19 13:50 79 18 100 04/30/19 13:40 88 20 99 04/30/19 13:30 96.3 F L 89 18 99 04/30/19 13:20 81 18 100 04/30/19 13:10 84 12 100 04/30/19 13:00 96.4 F L 81 12 100 04/30/19 12:50 96.3 F L 78 12 100 04/30/19 12:40 71 12 100 Intake and Output 04/30/19 05/01/19 05/01/19 22:59 06:59 14:59 Intake Total 683.613 743.146 347.372 Output Total 669 336 40 Balance 14.613 407.146 307.372 Intake: IV 262 522 304 0.9% Pressure Bag 72 72 84 CO/CI 40 50 20 Sodium Chloride 0.9% 1, 150 400 100 000 ml @ 20 mls/hr IV . Q24H [facility] Rx#:[id number] ceFAZolin 2 gm In Sodium 100 Chloride 0.9% 50 ml @ 100 mls/hr IVPB Q8HR [facility] Rx# :[id number] Intake, IV Titration 291.613 221.146 43.372 Amount Clevidipine Butyrate 25 17.600 79.466 26 mg In Empty Bag 1 bag @ 1 MG/HR 2 mls/hr IV .Q24H [facility] Rx#:[id number] Insulin Regular 100 unit 24.013 41.680 17.372 In Sodium Chloride 0.9% 100 ml @ Per Protocol IV .Q0M [facility] Rx#:[id number] Sodium Chloride 0.9% 1, 250 000 ml @ 20 mls/hr IV . Q24H [facility] Rx#:[id number] ceFAZolin 2,000 mg In 100 Sodium Chloride 0.9% 30 ml @ Per Protocol IVPB ONCE ONE Rx#:[id number] Oral 130 Output: Chest Tube Drainage 127 80 0 Chest Tube Right Pleural/ 127 80 0 Mediastinal Urine 542 256 40 Other: Voiding Method Indwelling Catheter Indwelling Catheter Weight 109.6 kg ABP, PAP, CO, CI - Last 8 Hours Arterial Blood Pressure 120/49 Arterial Blood Pressure 155/57 Arterial Blood Pressure 142/57 Arterial Blood Pressure 133/55 Arterial Blood Pressure 117/52 Arterial Blood Pressure 129/54 Arterial Blood Pressure 138/57 Arterial Blood Pressure 129/52 Arterial Blood Pressure 130/53 Arterial Blood Pressure 129/51 Arterial Blood Pressure 124/52 Arterial Blood Pressure 133/60 Arterial Blood Pressure 126/53 Arterial Blood Pressure 130/56 Arterial Blood Pressure 120/54 Arterial Blood Pressure 128/57 Pulmonary Artery Pressure 35/20 Pulmonary Artery Pressure 32/15 Pulmonary Artery Pressure 34/16 Pulmonary Artery Pressure 33/18 Pulmonary Artery Pressure 37/16 Pulmonary Artery Pressure 29/13 Pulmonary Artery Pressure 31/14 Pulmonary Artery Pressure 30/13 Pulmonary Artery Pressure 32/16 Pulmonary Artery Pressure 37/21 Pulmonary Artery Pressure 34/18 Pulmonary Artery Pressure 35/18 Pulmonary Artery Pressure 36/20 Pulmonary Artery Pressure 34/18 Cardiac Output 4.5 Cardiac Output 4.5 Cardiac Output 4.5 Cardiac Output 4.3 Cardiac Output 6.7 Cardiac Output 6.7 Cardiac Output 6.7 Cardiac Output 6.7 Cardiac Output 6.7 Cardiac Output 6.7 Cardiac Index 2.1 Cardiac Index 2.1 Cardiac Index 2.1 Cardiac Index 2 Cardiac Index 3.2 Cardiac Index 3.2 Cardiac Index 3.2 Cardiac Index 3.2 Cardiac Index 3.2 Cardiac Index 3.2 Results CBC & Chem 7: 05/01/19 05:54 05/01/19 05:54 Labs: Abnormal Lab Results - Last 24 Hours (Table) 04/24/19 04/30/19 04/30/19 Range/Units 09:25 09:12 09:59 WBC (3.8-10.6) k/uL RBC (3.80-5.40) m/uL Hgb (11.4-16.0) gm/dL Hct (34.0-46.0) % RDW (11.5-15.5) % Plt Count (150-450) k/uL Neutrophils # (1.3-7.7) k/uL Lymphocytes # (1.0-4.8) k/uL PT (9.0-12.0) sec INR (<1.2) ABG pH (7.35-7.45) ABG pCO2 (35-45) mmHg ABG pO2 226 H 261 H (83-108) mmHg ABG HCO3 (21-25) mmol/L ABG Total CO2 26 H 26 H (19-24) mmol/L ABG O2 Saturation 99.8 H 99.9 H (94-97) % ABG Hematocrit 31 L 30 L (34.0-46.0) % ABG Sodium (135-146) mmol/L ABG Potassium (3.4-4.5) mmol/L ABG Ionized Calcium (4.5-5.3) mg/dL ABG Glucose 105 H 107 H (75-99) mg/dL ABG Lactic Acid 2.5 H* (0.5-1.6) mmol/L Hemoglobin 10.2 L 9.8 L (11.4-16.0) gm/dL BUN (7-17) mg/dL Glucose (74-99) mg/dL POC Glucose (mg/dL) (75-99) mg/dL AST (14-36) U/L ALT (9-52) U/L Total Protein (6.3-8.2) g/dL Albumin (3.5-5.0) g/dL Arterial Blood Potassium (3.4-4.5) mmol/L Arterial Blood Glucose 105 H 107 H (75-99) mg/dL Crossmatch See Detail 04/30/19 04/30/19 04/30/19 Range/Units 10:29 11:13 12:03 WBC (3.8-10.6) k/uL RBC (3.80-5.40) m/uL Hgb (11.4-16.0) gm/dL Hct (34.0-46.0) % RDW (11.5-15.5) % Plt Count (150-450) k/uL Neutrophils # (1.3-7.7) k/uL Lymphocytes # (1.0-4.8) k/uL PT (9.0-12.0) sec INR (<1.2) ABG pH (7.35-7.45) ABG pCO2 (35-45) mmHg ABG pO2 260 H 360 H 214 H (83-108) mmHg ABG HCO3 (21-25) mmol/L ABG Total CO2 26 H 25 H 25 H (19-24) mmol/L ABG O2 Saturation 99.8 H 100.0 H 99.7 H (94-97) % ABG Hematocrit 26 L 25 L 29 L (34.0-46.0) % ABG Sodium 134 L (135-146) mmol/L ABG Potassium 5.3 H 5.1 H (3.4-4.5) mmol/L ABG Ionized Calcium 4.2 L 4.2 L (4.5-5.3) mg/dL ABG Glucose 178 H 176 H 143 H (75-99) mg/dL ABG Lactic Acid 2.3 H* 3.1 H* 2.4 H* (0.5-1.6) mmol/L Hemoglobin 8.5 L 8.3 L 9.4 L (11.4-16.0) gm/dL BUN (7-17) mg/dL Glucose (74-99) mg/dL POC Glucose (mg/dL) (75-99) mg/dL AST (14-36) U/L ALT (9-52) U/L Total Protein (6.3-8.2) g/dL Albumin (3.5-5.0) g/dL Arterial Blood Potassium 5.3 H 5.1 H (3.4-4.5) mmol/L Arterial Blood Glucose 178 H 176 H 143 H (75-99) mg/dL Crossmatch 04/30/19 04/30/19 04/30/19 Range/Units 12:39 12:39 12:39 WBC (3.8-10.6) k/uL RBC 3.23 L (3.80-5.40) m/uL Hgb 9.4 L D (11.4-16.0) gm/dL Hct 28.8 L (34.0-46.0) % RDW 16.3 H (11.5-15.5) % Plt Count 94 L (150-450) k/uL Neutrophils # (1.3-7.7) k/uL Lymphocytes # (1.0-4.8) k/uL PT (9.0-12.0) sec INR (<1.2) ABG pH (7.35-7.45) ABG pCO2 (35-45) mmHg ABG pO2 (83-108) mmHg ABG HCO3 (21-25) mmol/L ABG Total CO2 (19-24) mmol/L ABG O2 Saturation (94-97) % ABG Hematocrit (34.0-46.0) % ABG Sodium (135-146) mmol/L ABG Potassium (3.4-4.5) mmol/L ABG Ionized Calcium (4.5-5.3) mg/dL ABG Glucose (75-99) mg/dL ABG Lactic Acid (0.5-1.6) mmol/L Hemoglobin (11.4-16.0) gm/dL BUN (7-17) mg/dL Glucose 115 H (74-99) mg/dL POC Glucose (mg/dL) 114 H (75-99) mg/dL AST 155 H (14-36) U/L ALT 86 H (9-52) U/L Total Protein 5.4 L (6.3-8.2) g/dL Albumin 2.7 L (3.5-5.0) g/dL Arterial Blood Potassium (3.4-4.5) mmol/L Arterial Blood Glucose (75-99) mg/dL Crossmatch 04/30/19 04/30/19 04/30/19 Range/Units 12:39 13:04 13:16 WBC (3.8-10.6) k/uL RBC (3.80-5.40) m/uL Hgb (11.4-16.0) gm/dL Hct (34.0-46.0) % RDW (11.5-15.5) % Plt Count (150-450) k/uL Neutrophils # (1.3-7.7) k/uL Lymphocytes # (1.0-4.8) k/uL PT 14.1 H (9.0-12.0) sec INR 1.4 H (<1.2) ABG pH 7.27 L (7.35-7.45) ABG pCO2 60 H (35-45) mmHg ABG pO2 >400 H (83-108) mmHg ABG HCO3 27 H (21-25) mmol/L ABG Total CO2 29 H (19-24) mmol/L ABG O2 Saturation 100.0 H (94-97) % ABG Hematocrit (34.0-46.0) % ABG Sodium (135-146) mmol/L ABG Potassium (3.4-4.5) mmol/L ABG Ionized Calcium (4.5-5.3) mg/dL ABG Glucose (75-99) mg/dL ABG Lactic Acid (0.5-1.6) mmol/L Hemoglobin (11.4-16.0) gm/dL BUN (7-17) mg/dL Glucose (74-99) mg/dL POC Glucose (mg/dL) 100 H (75-99) mg/dL AST (14-36) U/L ALT (9-52) U/L Total Protein (6.3-8.2) g/dL Albumin (3.5-5.0) g/dL Arterial Blood Potassium (3.4-4.5) mmol/L Arterial Blood Glucose (75-99) mg/dL Crossmatch 04/30/19 04/30/19 04/30/19 Range/Units 14:03 15:00 15:14 WBC (3.8-10.6) k/uL RBC 3.71 L (3.80-5.40) m/uL Hgb 10.9 L (11.4-16.0) gm/dL Hct 33.1 L (34.0-46.0) % RDW 16.3 H (11.5-15.5) % Plt Count (150-450) k/uL Neutrophils # 8.2 H (1.3-7.7) k/uL Lymphocytes # (1.0-4.8) k/uL PT (9.0-12.0) sec INR (<1.2) ABG pH (7.35-7.45) ABG pCO2 (35-45) mmHg ABG pO2 (83-108) mmHg ABG HCO3 (21-25) mmol/L ABG Total CO2 (19-24) mmol/L ABG O2 Saturation (94-97) % ABG Hematocrit (34.0-46.0) % ABG Sodium (135-146) mmol/L ABG Potassium (3.4-4.5) mmol/L ABG Ionized Calcium (4.5-5.3) mg/dL ABG Glucose (75-99) mg/dL ABG Lactic Acid (0.5-1.6) mmol/L Hemoglobin (11.4-16.0) gm/dL BUN (7-17) mg/dL Glucose (74-99) mg/dL POC Glucose (mg/dL) 103 H 142 H (75-99) mg/dL AST (14-36) U/L ALT (9-52) U/L Total Protein (6.3-8.2) g/dL Albumin (3.5-5.0) g/dL Arterial Blood Potassium (3.4-4.5) mmol/L Arterial Blood Glucose (75-99) mg/dL Crossmatch 04/30/19 04/30/19 04/30/19 Range/Units 15:46 16:12 16:55 WBC (3.8-10.6) k/uL RBC (3.80-5.40) m/uL Hgb (11.4-16.0) gm/dL Hct (34.0-46.0) % RDW (11.5-15.5) % Plt Count (150-450) k/uL Neutrophils # (1.3-7.7) k/uL Lymphocytes # (1.0-4.8) k/uL PT (9.0-12.0) sec INR (<1.2) ABG pH (7.35-7.45) ABG pCO2 46 H (35-45) mmHg ABG pO2 (83-108) mmHg ABG HCO3 (21-25) mmol/L ABG Total CO2 27 H (19-24) mmol/L ABG O2 Saturation 97.3 H (94-97) % ABG Hematocrit (34.0-46.0) % ABG Sodium (135-146) mmol/L ABG Potassium (3.4-4.5) mmol/L ABG Ionized Calcium (4.5-5.3) mg/dL ABG Glucose (75-99) mg/dL ABG Lactic Acid (0.5-1.6) mmol/L Hemoglobin (11.4-16.0) gm/dL BUN (7-17) mg/dL Glucose (74-99) mg/dL POC Glucose (mg/dL) 165 H 166 H (75-99) mg/dL AST (14-36) U/L ALT (9-52) U/L Total Protein (6.3-8.2) g/dL Albumin (3.5-5.0) g/dL Arterial Blood Potassium (3.4-4.5) mmol/L Arterial Blood Glucose (75-99) mg/dL Crossmatch 04/30/19 04/30/19 04/30/19 Range/Units 18:05 18:59 20:07 WBC (3.8-10.6) k/uL RBC (3.80-5.40) m/uL Hgb (11.4-16.0) gm/dL Hct (34.0-46.0) % RDW (11.5-15.5) % Plt Count (150-450) k/uL Neutrophils # (1.3-7.7) k/uL Lymphocytes # (1.0-4.8) k/uL PT (9.0-12.0) sec INR (<1.2) ABG pH (7.35-7.45) ABG pCO2 (35-45) mmHg ABG pO2 (83-108) mmHg ABG HCO3 (21-25) mmol/L ABG Total CO2 (19-24) mmol/L ABG O2 Saturation (94-97) % ABG Hematocrit (34.0-46.0) % ABG Sodium (135-146) mmol/L ABG Potassium (3.4-4.5) mmol/L ABG Ionized Calcium (4.5-5.3) mg/dL ABG Glucose (75-99) mg/dL ABG Lactic Acid (0.5-1.6) mmol/L Hemoglobin (11.4-16.0) gm/dL BUN (7-17) mg/dL Glucose (74-99) mg/dL POC Glucose (mg/dL) 153 H 159 H 150 H (75-99) mg/dL AST (14-36) U/L ALT (9-52) U/L Total Protein (6.3-8.2) g/dL Albumin (3.5-5.0) g/dL Arterial Blood Potassium (3.4-4.5) mmol/L Arterial Blood Glucose (75-99) mg/dL Crossmatch 04/30/19 04/30/19 04/30/19 Range/Units 20:54 21:57 22:58 WBC (3.8-10.6) k/uL RBC (3.80-5.40) m/uL Hgb (11.4-16.0) gm/dL Hct (34.0-46.0) % RDW (11.5-15.5) % Plt Count (150-450) k/uL Neutrophils # (1.3-7.7) k/uL Lymphocytes # (1.0-4.8) k/uL PT (9.0-12.0) sec INR (<1.2) ABG pH (7.35-7.45) ABG pCO2 (35-45) mmHg ABG pO2 (83-108) mmHg ABG HCO3 (21-25) mmol/L ABG Total CO2 (19-24) mmol/L ABG O2 Saturation (94-97) % ABG Hematocrit (34.0-46.0) % ABG Sodium (135-146) mmol/L ABG Potassium (3.4-4.5) mmol/L ABG Ionized Calcium (4.5-5.3) mg/dL ABG Glucose (75-99) mg/dL ABG Lactic Acid (0.5-1.6) mmol/L Hemoglobin (11.4-16.0) gm/dL BUN (7-17) mg/dL Glucose (74-99) mg/dL POC Glucose (mg/dL) 149 H 165 H 151 H (75-99) mg/dL AST (14-36) U/L ALT (9-52) U/L Total Protein (6.3-8.2) g/dL Albumin (3.5-5.0) g/dL Arterial Blood Potassium (3.4-4.5) mmol/L Arterial Blood Glucose (75-99) mg/dL Crossmatch 04/30/19 04/30/19 05/01/19 Range/Units 23:58 Unknown 01:00 WBC 11.6 H (3.8-10.6) k/uL RBC (3.80-5.40) m/uL Hgb 11.1 L (11.4-16.0) gm/dL Hct (34.0-46.0) % RDW 16.1 H (11.5-15.5) % Plt Count 145 L (150-450) k/uL Neutrophils # 10.5 H (1.3-7.7) k/uL Lymphocytes # 0.7 L (1.0-4.8) k/uL PT (9.0-12.0) sec INR (<1.2) ABG pH (7.35-7.45) ABG pCO2 (35-45) mmHg ABG pO2 (83-108) mmHg ABG HCO3 (21-25) mmol/L ABG Total CO2 (19-24) mmol/L ABG O2 Saturation (94-97) % ABG Hematocrit (34.0-46.0) % ABG Sodium (135-146) mmol/L ABG Potassium (3.4-4.5) mmol/L ABG Ionized Calcium (4.5-5.3) mg/dL ABG Glucose (75-99) mg/dL ABG Lactic Acid (0.5-1.6) mmol/L Hemoglobin (11.4-16.0) gm/dL BUN (7-17) mg/dL Glucose (74-99) mg/dL POC Glucose (mg/dL) 147 H 135 H (75-99) mg/dL AST (14-36) U/L ALT (9-52) U/L Total Protein (6.3-8.2) g/dL Albumin (3.5-5.0) g/dL Arterial Blood Potassium (3.4-4.5) mmol/L Arterial Blood Glucose (75-99) mg/dL Crossmatch 05/01/19 05/01/19 05/01/19 Range/Units 01:57 02:53 05:10 WBC (3.8-10.6) k/uL RBC (3.80-5.40) m/uL Hgb (11.4-16.0) gm/dL Hct (34.0-46.0) % RDW (11.5-15.5) % Plt Count (150-450) k/uL Neutrophils # (1.3-7.7) k/uL Lymphocytes # (1.0-4.8) k/uL PT (9.0-12.0) sec INR (<1.2) ABG pH (7.35-7.45) ABG pCO2 (35-45) mmHg ABG pO2 (83-108) mmHg ABG HCO3 (21-25) mmol/L ABG Total CO2 (19-24) mmol/L ABG O2 Saturation (94-97) % ABG Hematocrit (34.0-46.0) % ABG Sodium (135-146) mmol/L ABG Potassium (3.4-4.5) mmol/L ABG Ionized Calcium (4.5-5.3) mg/dL ABG Glucose (75-99) mg/dL ABG Lactic Acid (0.5-1.6) mmol/L Hemoglobin (11.4-16.0) gm/dL BUN (7-17) mg/dL Glucose (74-99) mg/dL POC Glucose (mg/dL) 125 H 125 H 117 H (75-99) mg/dL AST (14-36) U/L ALT (9-52) U/L Total Protein (6.3-8.2) g/dL Albumin (3.5-5.0) g/dL Arterial Blood Potassium (3.4-4.5) mmol/L Arterial Blood Glucose (75-99) mg/dL Crossmatch 05/01/19 05/01/19 05/01/19 Range/Units 05:54 05:54 06:15 WBC 15.8 H (3.8-10.6) k/uL RBC (3.80-5.40) m/uL Hgb (11.4-16.0) gm/dL Hct (34.0-46.0) % RDW 16.3 H (11.5-15.5) % Plt Count (150-450) k/uL Neutrophils # 13.5 H (1.3-7.7) k/uL Lymphocytes # (1.0-4.8) k/uL PT (9.0-12.0) sec INR (<1.2) ABG pH (7.35-7.45) ABG pCO2 (35-45) mmHg ABG pO2 (83-108) mmHg ABG HCO3 (21-25) mmol/L ABG Total CO2 (19-24) mmol/L ABG O2 Saturation (94-97) % ABG Hematocrit (34.0-46.0) % ABG Sodium (135-146) mmol/L ABG Potassium (3.4-4.5) mmol/L ABG Ionized Calcium (4.5-5.3) mg/dL ABG Glucose (75-99) mg/dL ABG Lactic Acid (0.5-1.6) mmol/L Hemoglobin (11.4-16.0) gm/dL BUN 18 H (7-17) mg/dL Glucose 127 H (74-99) mg/dL POC Glucose (mg/dL) 123 H (75-99) mg/dL AST 171 H (14-36) U/L ALT 88 H (9-52) U/L Total Protein (6.3-8.2) g/dL Albumin (3.5-5.0) g/dL Arterial Blood Potassium (3.4-4.5) mmol/L Arterial Blood Glucose (75-99) mg/dL Crossmatch 05/01/19 05/01/19 Range/Units 08:09 09:35 WBC (3.8-10.6) k/uL RBC (3.80-5.40) m/uL Hgb (11.4-16.0) gm/dL Hct (34.0-46.0) % RDW (11.5-15.5) % Plt Count (150-450) k/uL Neutrophils # (1.3-7.7) k/uL Lymphocytes # (1.0-4.8) k/uL PT (9.0-12.0) sec INR (<1.2) ABG pH (7.35-7.45) ABG pCO2 (35-45) mmHg ABG pO2 (83-108) mmHg ABG HCO3 (21-25) mmol/L ABG Total CO2 (19-24) mmol/L ABG O2 Saturation (94-97) % ABG Hematocrit (34.0-46.0) % ABG Sodium (135-146) mmol/L ABG Potassium (3.4-4.5) mmol/L ABG Ionized Calcium (4.5-5.3) mg/dL ABG Glucose (75-99) mg/dL ABG Lactic Acid (0.5-1.6) mmol/L Hemoglobin (11.4-16.0) gm/dL BUN (7-17) mg/dL Glucose (74-99) mg/dL POC Glucose (mg/dL) 134 H 151 H (75-99) mg/dL AST (14-36) U/L ALT (9-52) U/L Total Protein (6.3-8.2) g/dL Albumin (3.5-5.0) g/dL Arterial Blood Potassium (3.4-4.5) mmol/L Arterial Blood Glucose (75-99) mg/dL Crossmatch
[2019-05-01 22:42] LABS: Glucose,Whole Blood 109 mg/dL (75-99)
[2019-05-02 00:46] LABS: Glucose,Whole Blood 132 mg/dL (75-99)
[2019-05-02 02:47] LABS: Glucose,Whole Blood 116 mg/dL (75-99)
[2019-05-02] MEDS: HYDROcodone/APAP 5-325MG 1 EACH TAB PO PRN ×3 (03:41→18:38)
[2019-05-02] MEDS: SODIUM CHLORIDE 0.9% 1,000 ML IV SCH (03:42)
[2019-05-02 04:40] LABS: Glucose,Whole Blood 119 mg/dL (75-99)
[2019-05-02 04:54] LABS: Anisocytosis Slight; Basophils % (A) 0 %; Eosinophils # (A) 0.1 k/uL (0-0.7); Eosinophils % (A) 1 %; HCT 29.8 % (34.0-46.0); Lymphocytes # (A) 2.4 k/uL (1.0-4.8); Lymphocytes % (A) 23 %; MCH 29.3 pg (25.0-35.0); MCHC 32.8 g/dL (31.0-37.0); MCV 89.4 fL (80.0-100.0); Mean Platelet Volume 8.7; Monocytes # (A) 0.4 k/uL (0-1.0); Monocytes % (A) 4 %; Neutrophils # (A) 7.6 k/uL (1.3-7.7); Neutrophils % (A) 71 %; Platelet Count 130 k/uL (150-450); RBC 3.34 m/uL (3.80-5.40); RDW 17.1 % (11.5-15.5); WBC 10.7 k/uL (3.8-10.6)
[2019-05-02 05:00] LABS: HGB 9.8 gm/dL (11.4-16.0)
[2019-05-02 05:01] LABS: Ionized Calcium 4.8 mg/dL (4.5-5.3)
[2019-05-02 05:09] LABS: ALT 49 U/L (9-52); AST 102 U/L (14-36); African American GFR (CKD) >90 (>60 ml/min/1.73 sqM); Albumin 3.1 g/dL (3.5-5.0); Alkaline Phosphatase 60 U/L (38-126); Anion Gap 6 mmol/L; Blood Urea Nitrogen 29 mg/dL (7-17); Calcium 8.3 mg/dL (8.4-10.2); Carbon Dioxide 24 mmol/L (22-30); Chloride 104 mmol/L (98-107); Glucose 115 mg/dL (74-99); Potassium 4.3 mmol/L (3.5-5.1); Sodium 134 mmol/L (137-145); Total Bilirubin 0.5 mg/dL (0.2-1.3); Total Protein 6.2 g/dL (6.3-8.2)
[2019-05-02] MEDS: HEPARIN SODIUM,PORCINE 5,000 UNIT/ML 1 ML VIAL SQ SCH ×3 (06:31→21:29)
[2019-05-02] MEDS: KETOROLAC 30 MG/ML 1 ML VIAL IVP SCH ×4 (06:31→23:55)
[2019-05-02] MEDS: LEVOTHYROXINE 125 MCG TAB PO SCH (06:32)
[2019-05-02] MEDS: PANTOPRAZOLE 40 MG TABLET PO SCH (06:32)
[2019-05-02 06:56] LABS: Glucose,Whole Blood 128 mg/dL (75-99)
[2019-05-02] MEDS: INSULIN REGULAR 100 UNIT in SODIUM CHLORIDE 0.9% 100 ML IV SCH (06:59)
[2019-05-02] MEDS: IPRATROPIUM-ALBUTEROL 3 ML NEB INHALATION SCH ×4 (07:47→20:11)
[2019-05-02] MEDS: ALBUMIN HUMAN 5% 250 ML in EMPTY BAG 1 BAG IVPB PRN ×3 (07:50→13:28)
--- NOTE | 2019-05-02 08:11 | XR ---
EXAMINATION TYPE: XR chest 1V portable DATE OF EXAM: 05/02/2019 COMPARISON: 05/01/2019 HISTORY: Follow up status post cardiac surgery TECHNIQUE: Single frontal view of the chest is obtained. FINDINGS: Right thoracostomy tube remains in a similar position. No sizable pneumothorax. Scattered areas of linear atelectasis are seen with left basilar opacity also likely related atelectasis. Annul oplasty is seen of the enlarged cardiomediastinal silhouette with median sternotomy wires. No acute o sseous pathology. Cholecystectomy clips are incidentally noted. Very trace pleural effusions remain. Right internal jugular Lawrence-Fredrick catheter and mediastinal drain have been removed in the interim. Rig ht internal jugular catheter sheath remains. IMPRESSION: Shifting subsegmental atelectasis and trace pleural effusions. Left basilar consolidatio n also likely represents atelectasis. Stable right thoracostomy tube and removal of the Lawrence-Fredrick cat heter as well as a mediastinal drain.
[2019-05-02] MEDS ORDERED: METOPROLOL TARTRATE 25 MG TAB PO SCH (09:00)
[2019-05-02] MEDS ORDERED: LISINOPRIL 5 MG TAB PO SCH ×2 (09:00→12:00)
[2019-05-02] MEDS: CHOLECALCIFEROL 1,000 UNIT TAB PO SCH (09:18)
[2019-05-02] MEDS: ASPIRIN 325 MG TAB PO SCH (09:18)
[2019-05-02] MEDS: CLOPIDOGREL 75 MG TAB PO SCH (09:20)
[2019-05-02] MEDS: FERROUS SULFATE 325 MG TAB PO SCH ×2 (09:20→21:29)
[2019-05-02] MEDS: CITALOPRAM HYDROBROMIDE 20 MG TAB PO SCH (09:20)
--- NOTE | 2019-05-02 09:21 | PN ---
PROGRESS NOTE Katerina is a 58-year-old lady with history of aortic stenosis who underwent aortic valve replacement. This morning she is doing well and is free of symptoms. She is in her rhythm, stable hemodynamically and has very little drainage from the chest tube. CURRENT MEDICATIONS: Aspirin, Synthroid, metoprolol 12.5 b.i.d. PHYSICAL EXAM: Heart rate is 73 beats per minute, blood pressure is 104/48, respiratory rate is 18. Chest exam reveals good air entry bilaterally. Heart exam reveals first and second heart sounds. No gallop. Exam of the extremities did not reveal any edema. Peripheral pulses are felt. LABS: Show a hemoglobin of 9.8, potassium is 4.3, creatinine is 0.8. ASSESSMENT: Aortic stenosis, status post aortic valve replacement. PLAN: Patient is doing better. Continue incentive spirometry, transfer her out of ICU. MMODL / IJN: [id number] /
[2019-05-02] MEDS: METOPROLOL TARTRATE 12.5 MG TAB PO SCH ×2 (09:34→21:30)
--- NOTE | 2019-05-02 09:57 | P.PN ---
Subjective Progress Note Date: 05/02/19 Principal diagnosis: Critical aortic valve stenosis, past medical history significant for hypertension, hypothyroid, chronic anemia, gastroesophageal reflux disease, vitamin D deficiency, preoperative hepatitis C IgG Ab reactive, fatty liver, morbid obesity, depression and remote history of nicotine dependence quit smoking 3 years ago. POD #2 aortic valve replacement with a #23 mm Simon Inspiris bioprosthetic aortic valve, clip ligation of the left atrial appendage with a #35 mm Atriclip and an intraoperative transesophageal echocardiogram. Postoperative transaminitis, an expected outcome due to her preoperative elevation liver enzymes and history of fatty liver. Postoperative acute blood loss anemia, an expected outcome due to her history of anemia, cardiopulmonary bypass and hemodilution. The patient is currently sitting up to the bedside chair in the intensive care unit. She is in no acute distress. She is complaining of right pleural chest insertion site tube pain. Denies any complaints of shortness of breath. She reports that she has been ambulating in the intensive care unit hallway already this morning with minimal assistance and tolerated it well. Right IJ cordis remains in place with continuous CVP monitoring, current CVP pressure 10 mmHg. Her blood pressure is currently 95/44 mmHg and she is receiving albumin 5% 250 mL. Oxygen saturations are 93% on 2 L nasal cannula and she is achieving 750 mL on her incentive spirometry. She reports she could do better on her incentive spirometry although when she takes a deep breath she is having some pain from the chest tube. Bedside telemetry showing normal sinus rhythm heart rate 73. Right pleural chest tube remains in place to low continuous wall suction -20 cm H2O. No air leak is present. 55 mL output in the last 8 hours, 120 mL output in the last 24 hours. Remains afebrile. She is on no inotropic or pressor support. Objective - Vital Signs Vital signs: Vital Signs Temp 97.9 F 05/01/19 20:00 Pulse 73 05/02/19 07:00 Resp 19 05/02/19 07:00 BP 104/40 05/02/19 07:00 Pulse Ox 93 L 05/02/19 07:00 Intake & Output 05/01/19 05/02/19 05/02/19 18:59 06:59 18:59 Intake Total 1088.307 445.542 33 Output Total 467 373 15 Balance 621.307 72.542 18 Weight 109.6 kg 112.7 kg Intake: IV 633 406 33 0.9% Pressure Bag 123 36 3 CO/CI 20 Sodium Chloride 0.9% 1, 390 320 30 000 ml @ 20 mls/hr IV . Q24H [facility] Rx#:[id number] ceFAZolin 2 gm In Sodium 100 50 Chloride 0.9% 50 ml @ 100 mls/hr IVPB Q8HR [facility] Rx# :[id number] Intake, IV Titration 85.307 39.542 Amount Clevidipine Butyrate 25 50.0 mg In Empty Bag 1 bag @ 1 MG/HR 2 mls/hr IV .Q24H [facility] Rx#:[id number] Insulin Regular 100 unit 35.307 39.542 In Sodium Chloride 0.9% 100 ml @ Per Protocol IV .Q0M [facility] Rx#:[id number] Oral 370 Output: Chest Tube Drainage 35 63 Chest Tube Right Pleural/ 0 Mediastinal Right Lateral Chest 35 63 Urine 432 310 15 Other: Voiding Method Indwelling Catheter Indwelling Catheter ABP, PAP, CO, CI - Last Documented Arterial Blood Pressure 113/45 Pulmonary Artery Pressure 190/190 Cardiac Output 4.5 Cardiac Index 2.1 - Constitutional General appearance: Present: cooperative, morbidly obese, no acute distress - Respiratory Details: Lungs sounds essentially clear throughout, diminished bilateral bases. Respirations are symmetrical and nonlabored. Oxygen saturation is 93% on 2 L nasal cannula. Achieving 750 mL on her incentive spirometry. Right pleural chest tube remains in place to low continuous wall suction -20 cm H2O. No air leak is present. Draining thin serosanguineous drainage. 55 mL output in the last 8 hours, 120 mL output in the last 24 hours. - Cardiovascular Details: Regular rhythm and rate. S1 and S2 present, negative for S3, gallop or murmur. Sternum is stable. Bedside telemetry showing normal sinus rhythm heart rate 73. Ventricular epicardial pacemaker wire remains in place and grounded. Heart hugger is in place and she is demonstrating appropriate use. Knee-high EVELIO hose and sequential compression devices in place to her bilateral lower extremities. No edema present. Right radial arterial line in place and functioning. Right MAO Cordis in place to continue CVP monitoring, current CVP pressure 10 mmHg. - Gastrointestinal Gastrointestinal Comment(s): Abdomen is soft, nontender and nondistended. Active bowel sounds present in all 4 abdominal quadrants. No guarding or rigidity. No organomegaly appreciated. Tolerating oral intake. - Genitourinary Genitourinary Comment(s): Vizcarra catheter for accurate I&O. Draining clear morgan urine. 230 mL output in the last 8 hours. - Integumentary Integumentary Comment(s): Skin is warm and dry. No clubbing or cyanosis is present. No rash or abnormal pigmentation is present. Midline sternal incision is clean, dry and approximated. No drainage or redness is present. Right pleural chest tube dressing is clean, dry and intact. - Neurologic Neurologic Comment(s): No focal deficits. Neurologic: Present: CNII-XII intact - Musculoskeletal Musculoskeletal: Present: gait normal, strength equal bilaterally - Psychiatric Psychiatric: Present: A&O x's 3, appropriate affect, intact judgment & insight - Allied health notes Allied health notes reviewed: nursing - Labs CBC & Chem 7: 05/02/19 04:42 05/02/19 04:42 Labs: Abnormal Lab Results - Last 24 Hours (Table) 05/01/19 05/01/19 05/01/19 Range/Units 09:35 10:23 12:07 WBC (3.8-10.6) k/uL RBC (3.80-5.40) m/uL Hgb (11.4-16.0) gm/dL Hct (34.0-46.0) % RDW (11.5-15.5) % Plt Count (150-450) k/uL Sodium (137-145) mmol/L BUN (7-17) mg/dL Glucose (74-99) mg/dL POC Glucose (mg/dL) 151 H 172 H 133 H (75-99) mg/dL Calcium (8.4-10.2) mg/dL AST (14-36) U/L Total Protein (6.3-8.2) g/dL Albumin (3.5-5.0) g/dL 05/01/19 05/01/19 05/01/19 Range/Units 13:10 14:31 17:09 WBC (3.8-10.6) k/uL RBC (3.80-5.40) m/uL Hgb (11.4-16.0) gm/dL Hct (34.0-46.0) % RDW (11.5-15.5) % Plt Count (150-450) k/uL Sodium (137-145) mmol/L BUN (7-17) mg/dL Glucose (74-99) mg/dL POC Glucose (mg/dL) 129 H 131 H 112 H (75-99) mg/dL Calcium (8.4-10.2) mg/dL AST (14-36) U/L Total Protein (6.3-8.2) g/dL Albumin (3.5-5.0) g/dL 05/01/19 05/01/19 05/01/19 Range/Units 18:33 20:20 22:30 WBC (3.8-10.6) k/uL RBC (3.80-5.40) m/uL Hgb (11.4-16.0) gm/dL Hct (34.0-46.0) % RDW (11.5-15.5) % Plt Count (150-450) k/uL Sodium (137-145) mmol/L BUN (7-17) mg/dL Glucose (74-99) mg/dL POC Glucose (mg/dL) 158 H 145 H 109 H (75-99) mg/dL Calcium (8.4-10.2) mg/dL AST (14-36) U/L Total Protein (6.3-8.2) g/dL Albumin (3.5-5.0) g/dL 05/02/19 05/02/19 05/02/19 Range/Units 00:35 02:36 04:37 WBC (3.8-10.6) k/uL RBC (3.80-5.40) m/uL Hgb (11.4-16.0) gm/dL Hct (34.0-46.0) % RDW (11.5-15.5) % Plt Count (150-450) k/uL Sodium (137-145) mmol/L BUN (7-17) mg/dL Glucose (74-99) mg/dL POC Glucose (mg/dL) 132 H 116 H 119 H (75-99) mg/dL Calcium (8.4-10.2) mg/dL AST (14-36) U/L Total Protein (6.3-8.2) g/dL Albumin (3.5-5.0) g/dL 05/02/19 05/02/19 05/02/19 Range/Units 04:42 04:42 06:36 WBC 10.7 H (3.8-10.6) k/uL RBC 3.34 L (3.80-5.40) m/uL Hgb 9.8 L D (11.4-16.0) gm/dL Hct 29.8 L (34.0-46.0) % RDW 17.1 H (11.5-15.5) % Plt Count 130 L (150-450) k/uL Sodium 134 L (137-145) mmol/L BUN 29 H (7-17) mg/dL Glucose 115 H (74-99) mg/dL POC Glucose (mg/dL) 128 H (75-99) mg/dL Calcium 8.3 L (8.4-10.2) mg/dL AST 102 H (14-36) U/L Total Protein 6.2 L (6.3-8.2) g/dL Albumin 3.1 L (3.5-5.0) g/dL - Imaging and Cardiology Chest x-ray: report reviewed, image reviewed Assessment and Plan Assessment: 1. Critical aortic valve stenosis, status post aortic valve replacement 2. History of hypertension 3. History of hypothyroidism 4. Chronic anemia 5. GERD 6. Vitamin D deficiency 7. Hepatitis C IgG Ab, reactive preoperatively 8. History of fatty liver, with preoperative elevation of her AST 9. Morbid obesity 10. Depression 11. Remote history of nicotine dependence quit smoking 3 years ago Plan: 1. Continue to maximize medical therapy with aspirin, Plavix, heparin subcu and beta nadine. We will increase her metoprolol to treat as tolerated. 2. Continue to hold her statin at this time due to her elevation in her AST. We will restart her statin once her liver enzymes have normalized. 3. Discontinue her right IJ Cordis, and right radial arterial line. 4. Discontinue her right pleural chest tube. 5. Continue lisinopril 2.5 mg by mouth daily at noon for afterload reduction. 6. Albumin 5% 500 mL now. 7. GI and DVT prophylaxis. 8. We will continue to monitor her daily labs and chest x-rays. Electrolyte replacements per protocols. 9. Wean oxygen as tolerated. Encourage use of her incentive spirometry every hour while awake. 10. Pain management per current when necessary orders. 11. Increase activity as tolerated, PT/OT and cardiac rehab are following. 12. Continue her home meds Synthroid 125 g by mouth daily, Celexa 40 mg by mouth every morning and ferrous sulfate 325 mg by mouth twice a day. 13. Bronchodilator management per pulmonary medicine's recommendations. 14. Insulin management per primary care service. 15. Remove her ventricular epicardial pacemaker wires, bed rest for 1 hour post pacemaker wire removal. 16. Transfer to 3 S cardiac stepdown unit when bed available. 17. More recommendations to follow based on patient's clinical course. Ventricular epicardial pacemaker wires removed without incident at 8:40 AM today. She will be on bed rest for 1 hour post pacemaker wire removal. Right pleural chest tube removed without incident at 9:45 AM today. 4 x 4 gauze, Vaseline impregnated gauze to cover and secured with tape. Time with Patient: Greater than 30
[2019-05-02 12:09] LABS: Glucose,Whole Blood 129 mg/dL (75-99)
--- NOTE | 2019-05-02 12:53 | P.PN ---
Subjective Progress Note Date: 05/02/19 Principal diagnosis: Status post aortic valve replacement, postoperative day #2 This is a 58-year-old female with known history of hypertension, fatty liver, hypothyroidism, patient was recently diagnosed with severe aortic stenosis, aortic valve area was calculated to be in the range of 1 cm there was also evidence of [id number] aortic regurgitation, there was no evidence of significant coronary artery disease on her most recent cardiac catheterization. Patient underwent elective aortic valve replacement today, and postoperatively she was on mechanical ventilation, hence I was asked to see her on consultation. Presently the patient is on SIMV mode of mechanical ventilation, rate of 18, tidal volume of 400, FiO2 is 40%, and PEEP of 5. ABG showed a pO2 of 214 pCO2 of 44 pH of 7.35. Postoperative chest x-ray showed adequate placement of the endotracheal tube, orogastric tube, and a right sided chest tube. There was no evidence of pneumothorax. It was basically a satisfactory postoperative chest x-ray. Reevaluated today on 05/01/2019, patient was extubated a few hours after I saw her yesterday, she is presently on few liters nasal cannula, asymptomatic, does have some vague incisional pain in the chest. No shortness of breath no cough no wheezing. Chest x-ray is relatively unremarkable. Postoperative trace of bilateral pleural effusions noted and subsegmental atelectasis, expected findings after cardiac surgery. WBC count today is 15.8 hemoglobin is 11.5. Basic metabolic profile is normal. Reevaluated today on 05/02/2019, patient remains in the ICU, doing extremely well. Her right-sided chest pain has resolved. Patient is relatively as ymptomatic, O2 saturation is 93% on 2 L. Achieving about 750 ML on her incentive spirometry. Patient is not requiring any inotropes or any pressors. Patient is in sinus rhythm rate of 73. Labs were noted to be relatively normal hemoglobin is 9.8 chest x-ray showed subsegmental atelectasis and trace of pleural effusions. Objective - Vital Signs Vital signs: Vital Signs Temp 97.9 F 05/01/19 20:00 Pulse 67 05/02/19 11:00 Resp 12 05/02/19 11:34 BP 110/49 05/02/19 11:00 Pulse Ox 95 05/02/19 11:00 Intake & Output 07/05/02/19 05/02/19 18:59 06:59 18:59 Intake Total 1088.307 445.542 391 Output Total 467 373 105 Balance 621.307 72.542 286 Weight 109.6 kg 112.7 kg Intake: IV 633 406 141 0.9% Pressure Bag 123 36 21 CO/CI 20 Sodium Chloride 0.9% 1, 390 320 120 000 ml @ 20 mls/hr IV . Q24H [facility] Rx#:[id number] ceFAZolin 2 gm In Sodium 100 50 Chloride 0.9% 50 ml @ 100 mls/hr IVPB Q8HR [facility] Rx# :[id number] Intake, IV Titration 85.307 39.542 Amount Clevidipine Butyrate 25 50.0 mg In Empty Bag 1 bag @ 1 MG/HR 2 mls/hr IV .Q24H [facility] Rx#:[id number] Insulin Regular 100 unit 35.307 39.542 In Sodium Chloride 0.9% 100 ml @ Per Protocol IV .Q0M [facility] Rx#:[id number] Oral 370 250 Output: Chest Tube Drainage 35 63 10 Chest Tube Right Pleural/ 0 Mediastinal Right Lateral Chest 35 63 10 Urine 432 310 95 Other: Voiding Method Indwelling Catheter Indwelling Catheter Indwelling Catheter ABP, PAP, CO, CI - Last Documented Arterial Blood Pressure 131/68 Pulmonary Artery Pressure 190/190 Cardiac Output 4.5 Cardiac Index 2.1 - Exam Physical exam revealed a 58-year-old female in no distress, on 2 L nasal cannula. HEAD: Normocephalic/atraumatic. EYES: PERRLA, EOMI, no icterus. NOSE: Clear with pink turbinates. THROAT: No erythema or exudates. NECK: No masses, no JVD, no thyroid enlargement, no adenopathy. CHEST: No chest wall deformity. Symmetrical expansion. LUNGS: Diminished breath sounds at the bases no crackles or rhonchi or wheezes. CVS: Regular rate and rhythm, normal S1 and S2, no gallops, no murmurs, no rubs ABDOMEN: Soft, nontender. No hepatosplenomegaly, normal bowel sounds, no guarding or rigidity. EXTREMITIES: No clubbing, no edema, no cyanosis, 2+ pulses and upper and lower extremities. SKIN: No rashes CENTRAL NERVOUS SYSTEM: Alert oriented 3, no gross focal deficit. - Labs CBC & Chem 7: 05/02/19 04:42 05/02/19 04:42 Labs: Abnormal Lab Results - Last 24 Hours (Table) 05/01/19 05/01/19 05/01/19 Range/Units 13:10 14:31 17:09 WBC (3.8-10.6) k/uL RBC (3.80-5.40) m/uL Hgb (11.4-16.0) gm/dL Hct (34.0-46.0) % RDW (11.5-15.5) % Plt Count (150-450) k/uL Sodium (137-145) mmol/L BUN (7-17) mg/dL Glucose (74-99) mg/dL POC Glucose (mg/dL) 129 H 131 H 112 H (75-99) mg/dL Calcium (8.4-10.2) mg/dL AST (14-36) U/L Total Protein (6.3-8.2) g/dL Albumin (3.5-5.0) g/dL 05/01/19 05/01/19 05/01/19 Range/Units 18:33 20:20 22:30 WBC (3.8-10.6) k/uL RBC (3.80-5.40) m/uL Hgb (11.4-16.0) gm/dL Hct (34.0-46.0) % RDW (11.5-15.5) % Plt Count (150-450) k/uL Sodium (137-145) mmol/L BUN (7-17) mg/dL Glucose (74-99) mg/dL POC Glucose (mg/dL) 158 H 145 H 109 H (75-99) mg/dL Calcium (8.4-10.2) mg/dL AST (14-36) U/L Total Protein (6.3-8.2) g/dL Albumin (3.5-5.0) g/dL 05/02/19 05/02/19 05/02/19 Range/Units 00:35 02:36 04:37 WBC (3.8-10.6) k/uL RBC (3.80-5.40) m/uL Hgb (11.4-16.0) gm/dL Hct (34.0-46.0) % RDW (11.5-15.5) % Plt Count (150-450) k/uL Sodium (137-145) mmol/L BUN (7-17) mg/dL Glucose (74-99) mg/dL POC Glucose (mg/dL) 132 H 116 H 119 H (75-99) mg/dL Calcium (8.4-10.2) mg/dL AST (14-36) U/L Total Protein (6.3-8.2) g/dL Albumin (3.5-5.0) g/dL 05/02/19 05/02/19 05/02/19 Range/Units 04:42 04:42 06:36 WBC 10.7 H (3.8-10.6) k/uL RBC 3.34 L (3.80-5.40) m/uL Hgb 9.8 L D (11.4-16.0) gm/dL Hct 29.8 L (34.0-46.0) % RDW 17.1 H (11.5-15.5) % Plt Count 130 L (150-450) k/uL Sodium 134 L (137-145) mmol/L BUN 29 H (7-17) mg/dL Glucose 115 H (74-99) mg/dL POC Glucose (mg/dL) 128 H (75-99) mg/dL Calcium 8.3 L (8.4-10.2) mg/dL AST 102 H (14-36) U/L Total Protein 6.2 L (6.3-8.2) g/dL Albumin 3.1 L (3.5-5.0) g/dL 05/02/19 Range/Units 11:58 WBC (3.8-10.6) k/uL RBC (3.80-5.40) m/uL Hgb (11.4-16.0) gm/dL Hct (34.0-46.0) % RDW (11.5-15.5) % Plt Count (150-450) k/uL Sodium (137-145) mmol/L BUN (7-17) mg/dL Glucose (74-99) mg/dL POC Glucose (mg/dL) 129 H (75-99) mg/dL Calcium (8.4-10.2) mg/dL AST (14-36) U/L Total Protein (6.3-8.2) g/dL Albumin (3.5-5.0) g/dL Assessment and Plan Assessment: Impression: Status post aortic valve replacement with a #23 mm bioprosthetic aortic valve, clip ligation of left atrial appendage. Postoperative day #2 History of benign essential hypertension. Postoperative atelectasis, expected findings. Continue incentive spirometry Recommendation: Continue oxygen and titrate to keep O2 saturation above 90%, continue incentive spirometry, updrafts, early ambulation, aspirin, Plavix, beta blockers, discontinue mediastinal chest tube, continue right-sided pleural chest tube, continue GI and DVT prophylaxis, increase activity as tolerated, continue insulin as per protocol. We'll continue to follow. Time with Patient: Less than 30
[2019-05-02] MEDS: INSULIN ASPART (NovoLOG) 100 UNIT/ML VIAL SQ SCH ×3 (13:19→21:29)
[2019-05-02] MEDS ORDERED: ALBUMIN HUMAN 5% 250 ML in EMPTY BAG 1 BAG IVPB STA (13:29)
[2019-05-02] MEDS: LISINOPRIL 2.5 MG TAB PO SCH (14:34)
--- NOTE | 2019-05-02 15:50 | P.PN ---
Progress Note - Text Progress Note Date: 05/02/19 - Chief Complaint Aortic valve replacement Interval history: This is a 58-year-old patient of Dr. Carlson. Chronic stable medical conditions include hypertension, hypothyroid, fatty liver, depression. Patient has undergone aortic valve replacement. Today-did tolerate some diet. To sit up in a chair. Some pain at the operative site. Did pass flatus. Overall feels better. In ICU Review of systems: Was done for constitutional, cardiovascular, GI, pulmonary. relevant finding as above Active Medications Acetaminophen (Tylenol Tab) 1,000 mg PO Q6HR PRN PRN Reason: Fever and/ or Pain Hydrocodone Bitart/Acetaminophen (Hoopa 5-325) 1 each PO Q4HR PRN PRN Reason: Moderate Pain Last Admin: 05/02/19 10:28 Dose: 1 each Documented by: Albuterol/Ipratropium (Duoneb 0.5 Mg-3 Mg/3 Ml Soln) 3 ml INHALATION RT-Q2H PRN PRN Reason: Shortness Of Breath Or Wheezing Albuterol/Ipratropium (Duoneb 0.5 Mg-3 Mg/3 Ml Soln) 3 ml INHALATION RT-QID [facility] [place] Last Admin: 05/02/19 15:22 Dose: 3 ml Documented by: Aspirin (Aspirin) 325 mg PO DAILY [facility] [place] Last Admin: 05/02/19 09:18 Dose: 325 mg Documented by: Bisacodyl (Dulcolax) 10 mg RECTAL DAILY PRN PRN Reason: Constipation Cholecalciferol (Vitamin D3 (25 Mcg = 1000 Iu)) 2,000 unit PO DAILY [facility] [place] Last Admin: 05/02/19 09:18 Dose: 2,000 unit Documented by: Citalopram Hydrobromide (Celexa) 40 mg PO QAM [facility] [place] Last Admin: 05/02/19 09:20 Dose: 40 mg Documented by: Clopidogrel Bisulfate (Plavix) 75 mg PO DAILY [facility] [place] Last Admin: 05/02/19 09:20 Dose: 75 mg Documented by: Ferrous Sulfate (Feosol) 325 mg PO BID [facility] [place] Last Admin: 05/02/19 09:20 Dose: 325 mg Documented by: Heparin Sodium (Porcine) (Heparin) 5,000 unit SQ Q8H [facility] [place] Last Admin: 05/02/19 13:27 Dose: 5,000 unit Documented by: Amiodarone HCl 150 mg/ (Dextrose/Water) 103 mls @ 618 mls/hr IV .Q10M PRN; Protocol PRN Reason: A.FIB/FLUTTER Amiodarone HCl 360 mg/ (Dextrose/Water) 200 mls @ 33.333 mls/hr IV .Q6H PRN; Protocol PRN Reason: A.FIB/FLUTTER Amiodarone HCl 300 mg/ (Dextrose/Water) 250 mls @ 25 mls/hr IV .Q10H PRN; Protocol PRN Reason: A.FIB/FLUTTER Calcium Gluconate 2 gm/ Sodium (Chloride) 120 mls @ 100 mls/hr IVPB ONCE PRN PRN Reason: Ionized Calcium less than 4.4 Insulin Aspart (Novolog) 0 unit SQ ACHS [facility] [place]; Protocol Last Admin: 05/02/19 13:19 Dose: Not Given Documented by: Ketorolac Tromethamine (Toradol) 15 mg IVP Q6HR [facility] [place] Stop: 05/04/19 21:07 Last Admin: 05/02/19 13:27 Dose: 15 mg Documented by: Levothyroxine Sodium (Synthroid) 125 mcg PO DAILY@0630 [facility] [place] Last Admin: 05/02/19 06:32 Dose: 125 mcg Documented by: Lisinopril (Zestril) 2.5 mg PO Q24H [facility] [place] Last Admin: 05/02/19 14:34 Dose: Not Given Documented by: Magnesium Hydroxide (Milk Of Magnesia) 2,400 mg PO BID PRN PRN Reason: Constipation Metoclopramide HCl (Reglan) 10 mg IVP Q4H PRN PRN Reason: Nausea And Vomiting Metoprolol Tartrate (Lopressor) 12.5 mg PO BID [facility] [place] Last Admin: 05/02/19 09:34 Dose: 12.5 mg Documented by: Miscellaneous Information (Magnesium Per Protocol) 1 each MISCELLANE DAILY PRN; Protocol PRN Reason: Per Protocol Miscellaneous Information (Phosphorus Per Protocol) 1 each MISCELLANE DAILY PRN; Protocol PRN Reason: Per Protocol Miscellaneous Information (Potassium Per Protocol) 1 each MISCELLANE DAILY PRN; Protocol PRN Reason: Per Protocol Ondansetron HCl (Zofran) 4 mg IVP Q6HR PRN PRN Reason: Nausea And Vomiting Pantoprazole Sodium (Protonix) 40 mg PO AC-BRKFST [facility] [place] Last Admin: 05/02/19 06:32 Dose: 40 mg Documented by: Senna/Docusate Sodium (Senokot-S) 2 each PO [facility] Last Admin: 05/01/19 20:42 Dose: 2 each Documented by: Physical examination: VITAL SIGNS: Afebrile, 77, 17, 120/58, 96% on 2 L GENERAL: Laying in bed, comfortable. EYES: Pupils equal. Conjunctiva normal. HEENT: External appearance of nose and ears normal, oral cavity grossly normal. NECK: JVD unable to assess; masses not palpable. HEART: First and second heart sounds are normal; no edema. LUNGS: Respiratory rate increased, decreased breath sounds. ABDOMEN: Soft, nontender, liver spleen not palpable, no masses palpable. PSYCH: Alert and oriented x3; mood and affect normal. Investigations, reviewed in the clinical context: White count 10.7 hemoglobin 9.8 platelets 1:30 potassium 4.3 creatinine 0.82 Accu-Cheks 119, 128, 129 Assessment: -Aortic valve replacement with Simon bioprosthetic aortic valve with clip ligation of the left atrial appendage an intraoperative TREY -Obesity BMI 39.0 -Essential hypertension -Hepatic steatosis -Hypothyroidism -Depression otherwise specified -Acute postop blood loss anemia as expected from surgery -Dilutional thrombocytopenia Plan: Care was discussed with the patient no new issues. Continue current medication treatment plan. Encouraged to be out of bed and use the inspiratory spirometry
[2019-05-02 17:06] LABS: Glucose,Whole Blood 130 mg/dL (75-99)
[2019-05-02] MEDS: SENNOSIDES-DOCUSATE SODIUM 1 EACH TAB PO SCH (21:30)
[2019-05-02] MEDS: MUPIROCIN 2% OINT 22 GM TUBE NASAL SCH (21:34)
[2019-05-02 21:37] LABS: Glucose,Whole Blood 137 mg/dL (75-99)
[2019-05-03] MEDS: HEPARIN SODIUM,PORCINE 5,000 UNIT/ML 1 ML VIAL SQ SCH ×3 (03:40→20:17)
[2019-05-03] MEDS: HYDROcodone/APAP 5-325MG 1 EACH TAB PO PRN ×2 (03:46→18:36)
[2019-05-03 05:16] LABS: Anisocytosis Slight; HGB 8.6 gm/dL (11.4-16.0); Hypochromasia Slight; MCH 28.8 pg (25.0-35.0); MCHC 31.7 g/dL (31.0-37.0); MCV 90.6 fL (80.0-100.0); Mean Platelet Volume 8.8; RBC 2.97 m/uL (3.80-5.40); RDW 16.6 % (11.5-15.5); WBC 4.8 k/uL (3.8-10.6)
[2019-05-03 05:19] LABS: ALT 32 U/L (9-52); AST 65 U/L (14-36); African American GFR (CKD) >90 (>60 ml/min/1.73 sqM); Albumin 3.4 g/dL (3.5-5.0); Alkaline Phosphatase 57 U/L (38-126); Anion Gap 9 mmol/L; Blood Urea Nitrogen 32 mg/dL (7-17); Calcium 8.3 mg/dL (8.4-10.2); Carbon Dioxide 22 mmol/L (22-30); Chloride 102 mmol/L (98-107); Glucose 122 mg/dL (74-99); Potassium 4.5 mmol/L (3.5-5.1); Sodium 133 mmol/L (137-145); Total Bilirubin 0.7 mg/dL (0.2-1.3); Total Protein 6.6 g/dL (6.3-8.2)
[2019-05-03 05:49] LABS: Platelet Count 77 k/uL (150-450)
[2019-05-03] MEDS: INSULIN ASPART (NovoLOG) 100 UNIT/ML VIAL SQ SCH ×4 (06:30→21:29)
[2019-05-03] MEDS: LEVOTHYROXINE 125 MCG TAB PO SCH (06:34)
[2019-05-03] MEDS: KETOROLAC 30 MG/ML 1 ML VIAL IVP SCH ×4 (06:34→23:47)
[2019-05-03] MEDS: PANTOPRAZOLE 40 MG TABLET PO SCH (06:34)
[2019-05-03 06:38] LABS: Glucose,Whole Blood 121 mg/dL (75-99)
--- NOTE | 2019-05-03 07:14 | XR ---
EXAMINATION TYPE: XR chest 2V DATE OF EXAM: 05/03/2019 COMPARISON: 05/02/2019 HISTORY: Post aortic valve replacement. TECHNIQUE: Frontal and lateral views of the chest are obtained. FINDINGS: There remains a trace left pleural effusion and left basilar airspace disease. Right pleur al effusion has resolved. Cholecystectomy clips are seen. Cardiomediastinal silhouette is enlarged wi th post operative changes from aortic valvular repair. No acute osseous pathology. Right thoracostomy tube has been removed with no residual pneumothorax. IMPRESSION: Persistent left basilar airspace disease particularly surrounding the medial left lower lobe distal bronchi in the retrocardiac airspace. This could represent postoperative atelectasis, pne umonia, or postobstructive atelectasis given its confluence surrounding the bronchi. Correlate for a mucous plugging. Trace left pleural effusion remains.
--- NOTE | 2019-05-03 07:44 | P.PN ---
Subjective Progress Note Date: 05/03/19 Principal diagnosis: Critical aortic valve stenosis. Previous medical history of hypertension, hypothyroid, chronic anemia, previous tobacco dependance with preoperative FEV1 64% of predicted, gastroesophageal reflux disease, vitamin D deficiency, preoperative hepatitis C IgG Ab reactive, fatty liver, morbid obesity, depression, family history of premature coronary artery disease. POD #2 aortic valve replacement with a #23 mm Simon Inspiris bioprosthetic aortic valve, clip ligation of the left atrial appendage with a #35 mm Atriclip and an intraoperative transesophageal echocardiogram. Postoperative transaminitis, expected due to her preoperative elevation liver enzymes and history of fatty liver. Postoperative acute blood loss anemia, expected due to her history of anemia, cardiopulmonary bypass and hemodilution. Postoperative thrombocytopenia, expected, dilutional. The patient is currently sitting up in the recliner in no acute distress. Complains of post surgical chest pain with deep inspiration, denies shortness of breath. All lines/tubes were discontinued yesterday and patient has ambulated in the hallway. Remains in normal sinus rhythm and is hemodynamically stable. Vizcarra catheter just discontinued this morning. Transfer orders were placed [facility] for [address] [place] [address] cardiac stepdown unit, but there are no beds available. No new concerns. Objective - Vital Signs Vital signs: Vital Signs Temp 98 F 05/03/19 00:00 Pulse 77 05/03/19 04:00 Resp 22 05/03/19 04:00 BP 108/53 05/03/19 04:00 Pulse Ox 99 05/03/19 04:00 Intake & Output 05/02/19 05/03/19 05/03/19 18:59 06:59 18:59 Intake Total 1641 140 Output Total 365 530 Balance 1276 -390 Weight 115.3 kg Intake: IV 141 20 0.9% Pressure Bag 21 Invasive Line 1 20 Sodium Chloride 0.9% 1, 120 000 ml @ 20 mls/hr IV . Q24H LATRELL Rx#:[id number] Intake, IV Titration 750 Amount Albumin Human 5% 250 ml 750 In Empty Bag 1 bag @ 250 mls/hr IVPB Q1HR PRN Rx#: [id number] Oral 750 120 Output: Chest Tube Drainage 10 Right Lateral Chest 10 Urine 355 530 Other: Voiding Method Indwelling Catheter Indwelling Catheter ABP, PAP, CO, CI - Last Documented Arterial Blood Pressure 131/68 Pulmonary Artery Pressure 190/190 Cardiac Output 4.5 Cardiac Index 2.1 - Constitutional General appearance: Present: cooperative, morbidly obese - Respiratory Details: Lung sounds diminished bilaterally. Respirations even, non-labored. Currently on room air with oxygen saturation 95%. Able to achieve 500 mL on her incentive spirometer. Strong, non-productive cough. - Cardiovascular Details: S1/S2 present. Regular rate and rhythm, normal sinus rhythm on telemetry. Sternum stable. Palpable peripheral pulses bilaterally. No edema present. Heart hugger in place with patient demonstrating appropriate use. Anti-embolism stockings, SCDs in place. - Gastrointestinal Gastrointestinal Comment(s): Abdomen soft, non-tender, non-distended. Active bowel sounds present x 4 quadrants. Tolerating diet. Positive flatus, negative bowel movement. - Genitourinary Genitourinary Comment(s): Vizcarra discontinued this AM, due to void. Urine output overnight 500mL clear, yellow. - Integumentary Integumentary Comment(s): Skin is warm and dry with evidence of good perfusion. Anterior chest incision well approximated with dry dressing in place. - Neurologic Neurologic: Present: CNII-XII intact - Musculoskeletal Musculoskeletal: Present: gait normal, strength equal bilaterally - Psychiatric Psychiatric: Present: A&O x's 3, appropriate affect, intact judgment & insight - Allied health notes Allied health notes reviewed: nursing - Labs CBC & Chem 7: 05/03/19 04:30 05/03/19 04:30 Labs: Abnormal Lab Results - Last 24 Hours (Table) 05/02/19 05/02/19 05/02/19 Range/Units 11:58 16:54 21:25 RBC (3.80-5.40) m/uL Hgb (11.4-16.0) gm/dL Hct (34.0-46.0) % RDW (11.5-15.5) % Plt Count (150-450) k/uL Sodium (137-145) mmol/L BUN (7-17) mg/dL Glucose (74-99) mg/dL POC Glucose (mg/dL) 129 H 130 H 137 H (75-99) mg/dL Calcium (8.4-10.2) mg/dL AST (14-36) U/L Albumin (3.5-5.0) g/dL 05/03/19 05/03/19 05/03/19 Range/Units 04:30 04:30 06:27 RBC 2.97 L (3.80-5.40) m/uL Hgb 8.6 L (11.4-16.0) gm/dL Hct 27.0 L (34.0-46.0) % RDW 16.6 H (11.5-15.5) % Plt Count 77 L (150-450) k/uL Sodium 133 L (137-145) mmol/L BUN 32 H (7-17) mg/dL Glucose 122 H (74-99) mg/dL POC Glucose (mg/dL) 121 H (75-99) mg/dL Calcium 8.3 L (8.4-10.2) mg/dL AST 65 H (14-36) U/L Albumin 3.4 L (3.5-5.0) g/dL - Imaging and Cardiology Chest x-ray: report reviewed, image reviewed Assessment and Plan Assessment: 1. Critical aortic valve stenosis, status post bioprostetic aortic valve replacement 2. History of hypertension 3. History of hypothyroidism 4. Chronic anemia 5. Previous tobacco dependance with preoperative FEV1 64% of predicted 6. GERD 7. Vitamin D deficiency 8. Hepatitis C IgG Ab reactive preoperatively 9. History of fatty liver with preoperative elevation of her AST 10. Morbid obesity 11. Depression 12. Family history of premature coronary artery disease 13. Postoperative transaminitis, expected 14. Postoperative acute blood loss anemia, expected 15. Postoperative thrombocytopenia, expected Plan: 1. Continue aspirin, Plavix, beta nadine. Will increase beta nadine as tolerated. Will re-add statin. 2. Continue lisinopril 2.5 mg by mouth daily at noon for afterload reduction. 3. Encourage incentive spirometry 10 times every hour while awake. Encourage continued smoking cessation. 4. Bronchodilators per pulmonology. 5. Will monitor daily labs and x-rays. Electrolyte replacements per protocol. 6. GI and DVT prophylaxis. 7. Pain control with current medication regimen. 8. Increase activity as tolerated, PT/OT, cardiac rehab following. 9. Insulin management per primary care service. 10. Patient to shower today and daily. 11. Transfer orders placed yesterday for 3 S cardiac stepdown unit. May transfer when bed available. 12. Discharge planning in progress. Anticipate discharge to home with home care in the next 24-48 hours. 13. More recommendations to follow based on patient's progress. Time with Patient: Greater than 30
[2019-05-03] MEDS: IPRATROPIUM-ALBUTEROL 3 ML NEB INHALATION SCH ×4 (08:26→20:37)
[2019-05-03] MEDS: CITALOPRAM HYDROBROMIDE 20 MG TAB PO SCH (09:29)
[2019-05-03] MEDS: ASPIRIN 325 MG TAB PO SCH (09:29)
[2019-05-03] MEDS: METOPROLOL TARTRATE 12.5 MG TAB PO SCH ×2 (09:30→20:17)
[2019-05-03] MEDS: FERROUS SULFATE 325 MG TAB PO SCH ×2 (09:31→20:17)
[2019-05-03] MEDS: CLOPIDOGREL 75 MG TAB PO SCH (09:31)
[2019-05-03] MEDS: CHOLECALCIFEROL 1,000 UNIT TAB PO SCH (09:31)
[2019-05-03 11:53] LABS: Glucose,Whole Blood 126 mg/dL (75-99)
--- NOTE | 2019-05-03 11:56 | P.PN ---
Subjective Progress Note Date: 05/03/19 Principal diagnosis: Status post aortic valve replacement, postoperative day #3 This is a 58-year-old female with known history of hypertension, fatty liver, hypothyroidism, patient was recently diagnosed with severe aortic stenosis, aortic valve area was calculated to be in the range of 1 cm there was also evidence of [id number] aortic regurgitation, there was no evidence of significant coronary artery disease on her most recent cardiac catheterization. Patient underwent elective aortic valve replacement today, and postoperatively she was on mechanical ventilation, hence I was asked to see her on consultation. Presently the patient is on SIMV mode of mechanical ventilation, rate of 18, tidal volume of 400, FiO2 is 40%, and PEEP of 5. ABG showed a pO2 of 214 pCO2 of 44 pH of 7.35. Postoperative chest x-ray showed adequate placement of the endotracheal tube, orogastric tube, and a right sided chest tube. There was no evidence of pneumothorax. It was basically a satisfactory postoperative chest x-ray. Reevaluated today on 05/01/2019, patient was extubated a few hours after I saw her yesterday, she is presently on few liters nasal cannula, asymptomatic, does have some vague incisional pain in the chest. No shortness of breath no cough no wheezing. Chest x-ray is relatively unremarkable. Postoperative trace of bilateral pleural effusions noted and subsegmental atelectasis, expected findings after cardiac surgery. WBC count today is 15.8 hemoglobin is 11.5. Basic metabolic profile is normal. Reevaluated today on 05/02/2019, patient remains in the ICU, doing extremely well. Her right-sided chest pain has resolved. Patient is relatively as ymptomatic, O2 saturation is 93% on 2 L. Achieving about 750 ML on her incentive spirometry. Patient is not requiring any inotropes or any pressors. Patient is in sinus rhythm rate of 73. Labs were noted to be relatively normal hemoglobin is 9.8 chest x-ray showed subsegmental atelectasis and trace of pleural effusions. Reevaluated today on 05/03/2019, patient had no medical issues over the last 24 hours. Patient is doing great, sitting in a recliner, in no distress, all tubes have been discontinued, patient is actually on room air. She is presently overflow in the ICU. Chest x-ray is reassuring, labs were all reviewed. Objective - Vital Signs Vital signs: Vital Signs Temp 98.2 F 05/03/19 08:00 Pulse 79 05/03/19 11:43 Resp 14 05/03/19 10:00 BP 127/43 05/03/19 10:00 Pulse Ox 92 L 05/03/19 10:00 Intake & Output 05/02/19 05/03/19 05/03/19 18:59 06:59 18:59 Intake Total 1641 140 Output Total 365 530 Balance 1276 -390 Weight 115.3 kg Intake: IV 141 20 0.9% Pressure Bag 21 Invasive Line 1 20 Sodium Chloride 0.9% 1, 120 000 ml @ 20 mls/hr IV . Q24H LATRELL Rx#:[id number] Intake, IV Titration 750 Amount Albumin Human 5% 250 ml 750 In Empty Bag 1 bag @ 250 mls/hr IVPB Q1HR PRN Rx#: [id number] Oral 750 120 Output: Chest Tube Drainage 10 Right Lateral Chest 10 Urine 355 530 Other: Voiding Method Indwelling Catheter Indwelling Catheter Bedside Commode ABP, PAP, CO, CI - Last Documented Arterial Blood Pressure 131/68 Pulmonary Artery Pressure 190/190 Cardiac Output 4.5 Cardiac Index 2.1 - Exam Physical exam revealed a 58-year-old female in no distress, on room air. HEENT: PERRLA, EOMI, no icterus, moist mucous membranes. CHEST: No chest wall deformity. Symmetrical expansion. LUNGS: Diminished breath sounds at the bases no crackles or rhonchi or wheezes. CVS: Regular rate and rhythm, normal S1 and S2, no gallops, no murmurs, no rubs ABDOMEN: Soft, nontender. No hepatosplenomegaly, normal bowel sounds, no guarding or rigidity. EXTREMITIES: No clubbing, no edema, no cyanosis, 2+ pulses and upper and lower extremities. SKIN: No rashes CENTRAL NERVOUS SYSTEM: Alert oriented 3, no gross focal deficit. - Labs CBC & Chem 7: 05/03/19 04:30 05/03/19 04:30 Labs: Abnormal Lab Results - Last 24 Hours (Table) 05/02/19 05/02/19 05/02/19 Range/Units 11:58 16:54 21:25 RBC (3.80-5.40) m/uL Hgb (11.4-16.0) gm/dL Hct (34.0-46.0) % RDW (11.5-15.5) % Plt Count (150-450) k/uL Sodium (137-145) mmol/L BUN (7-17) mg/dL Glucose (74-99) mg/dL POC Glucose (mg/dL) 129 H 130 H 137 H (75-99) mg/dL Calcium (8.4-10.2) mg/dL AST (14-36) U/L Albumin (3.5-5.0) g/dL 05/03/19 05/03/19 05/03/19 Range/Units 04:30 04:30 06:27 RBC 2.97 L (3.80-5.40) m/uL Hgb 8.6 L (11.4-16.0) gm/dL Hct 27.0 L (34.0-46.0) % RDW 16.6 H (11.5-15.5) % Plt Count 77 L (150-450) k/uL Sodium 133 L (137-145) mmol/L BUN 32 H (7-17) mg/dL Glucose 122 H (74-99) mg/dL POC Glucose (mg/dL) 121 H (75-99) mg/dL Calcium 8.3 L (8.4-10.2) mg/dL AST 65 H (14-36) U/L Albumin 3.4 L (3.5-5.0) g/dL Assessment and Plan Assessment: Impression: Status post aortic valve replacement with a #23 mm bioprosthetic aortic valve, clip ligation of left atrial appendage. Postoperative day #3 History of benign essential hypertension. Postoperative atelectasis, expected findings. Continue incentive spirometry Recommendation: Continue beta blockers Plavix and aspirin. Continue incentive spirometry Continue GI and DVT prophylaxis, Ambulation, Transferred to a monitor bed on selective once a bed is available. Anticipate discharge planning in the next 24-48 hours. Time with Patient: Less than 30
[2019-05-03] MEDS: LISINOPRIL 2.5 MG TAB PO SCH (11:57)
--- NOTE | 2019-05-03 12:48 | P.PN ---
Progress Note - Text Progress Note Date: 05/03/19 - Chief Complaint Aortic valve replacement Interval history: This is a 58-year-old patient of Dr. Hall. Chronic stable medical conditions include hypertension, hypothyroid, fatty liver, depression. Patient has undergone aortic valve replacement. Today-up in a chair. Did walk a bit. Has passed flatus. No bowel movement. Breathing better. Did not like the hospital breakfast. Family is visiting. The ICU. Review of systems: Was done for constitutional, cardiovascular, GI, pulmonary. relevant finding as above Active Medications Acetaminophen (Tylenol Tab) 1,000 mg PO Q6HR PRN PRN Reason: Fever and/ or Pain Hydrocodone Bitart/Acetaminophen ([place] 5-325) 1 each PO Q4HR PRN PRN Reason: Moderate Pain Last Admin: 05/03/19 03:46 Dose: 1 each Documented by: Albuterol/Ipratropium (Duoneb 0.5 Mg-3 Mg/3 Ml Soln) 3 ml INHALATION RT-Q2H PRN PRN Reason: Shortness Of Breath Or Wheezing Albuterol/Ipratropium (Duoneb 0.5 Mg-3 Mg/3 Ml Soln) 3 ml INHALATION RT-QID [facility] Last Admin: 05/03/19 11:41 Dose: 3 ml Documented by: Aspirin (Aspirin) 325 mg PO DAILY [facility] Last Admin: 05/03/19 09:29 Dose: 325 mg Documented by: Atorvastatin Calcium (Lipitor) 40 mg PO HS [facility] Bisacodyl (Dulcolax) 10 mg RECTAL DAILY PRN PRN Reason: Constipation Cholecalciferol (Vitamin D3 (25 Mcg = 1000 Iu)) 2,000 unit PO DAILY [facility] Last Admin: 05/03/19 09:31 Dose: 2,000 unit Documented by: Citalopram Hydrobromide (Celexa) 40 mg PO QAM [facility] Last Admin: 05/03/19 09:29 Dose: 40 mg Documented by: Clopidogrel Bisulfate (Plavix) 75 mg PO DAILY [facility] Last Admin: 05/03/19 09:31 Dose: 75 mg Documented by: Ferrous Sulfate (Feosol) 325 mg PO BID [facility] Last Admin: 05/03/19 09:31 Dose: 325 mg Documented by: Heparin Sodium (Porcine) (Heparin) 5,000 unit SQ Q8H [facility] Last Admin: 05/03/19 12:03 Dose: 5,000 unit Documented by: Amiodarone HCl 150 mg/ (Dextrose/Water) 103 mls @ 618 mls/hr IV .Q10M PRN; Protocol PRN Reason: A.FIB/FLUTTER Amiodarone HCl 360 mg/ (Dextrose/Water) 200 mls @ 33.333 mls/hr IV .Q6H PRN; Protocol PRN Reason: A.FIB/FLUTTER Amiodarone HCl 300 mg/ (Dextrose/Water) 250 mls @ 25 mls/hr IV .Q10H PRN; Protocol PRN Reason: A.FIB/FLUTTER Insulin Aspart (Novolog) 0 unit SQ ACHS [facility]; Protocol Last Admin: 05/03/19 11:45 Dose: Not Given Documented by: Ketorolac Tromethamine (Toradol) 15 mg IVP Q6HR [facility] Stop: 05/04/19 21:07 Last Admin: 05/03/19 11:57 Dose: 15 mg Documented by: Levothyroxine Sodium (Synthroid) 125 mcg PO DAILY@0630 [facility] Last Admin: 05/03/19 06:34 Dose: 125 mcg Documented by: Lisinopril (Zestril) 2.5 mg PO Q24H [facility] Last Admin: 05/03/19 11:57 Dose: 2.5 mg Documented by: Magnesium Hydroxide (Milk Of Magnesia) 2,400 mg PO BID PRN PRN Reason: Constipation Metoclopramide HCl (Reglan) 10 mg IVP Q4H PRN PRN Reason: Nausea And Vomiting Metoprolol Tartrate (Lopressor) 12.5 mg PO BID [facility] Last Admin: 05/03/19 09:30 Dose: 12.5 mg Documented by: Miscellaneous Information (Magnesium Per Protocol) 1 each MISCELLANE DAILY PRN; Protocol PRN Reason: Per Protocol Miscellaneous Information (Phosphorus Per Protocol) 1 each MISCELLANE DAILY PRN; Protocol PRN Reason: Per Protocol Miscellaneous Information (Potassium Per Protocol) 1 each MISCELLANE DAILY PRN; Protocol PRN Reason: Per Protocol Ondansetron HCl (Zofran) 4 mg IVP Q6HR PRN PRN Reason: Nausea And Vomiting Pantoprazole Sodium (Protonix) 40 mg PO -BRKFST LATRELL Last Admin: 05/03/19 06:34 Dose: 40 mg Documented by: Senna/Docusate Sodium (Senokot-S) 2 each PO HS LATRELL Last Admin: 05/02/19 21:30 Dose: 2 each Documented by: Physical examination: VITAL SIGNS: 98, 83, 18, 121/53, 95% room air GENERAL: Sitting up in a chair, comfortable. EYES: Pupils equal. Conjunctiva normal. HEENT: External appearance of nose and ears normal, oral cavity grossly normal. NECK: JVD unable to assess; masses not palpable. HEART: First and second heart sounds are normal; no edema. LUNGS: Respiratory rate increased, decreased breath sounds. ABDOMEN: Soft, nontender, liver spleen not palpable, no masses palpable. PSYCH: Alert and oriented x3; mood and affect normal. Investigations, reviewed in the clinical context: White count 4.8 hemoglobin 8.6 potassium 4. bun 32 crit 0.75 Assessment: -Aortic valve replacement with Simon bioprosthetic aortic valve with clip ligation of the left atrial appendage an intraoperative TREY -Obesity BMI 39.0 -Essential hypertension -Hepatic steatosis -Hypothyroidism -Depression otherwise specified -Acute postop blood loss anemia as expected from surgery -Dilutional thrombocytopenia Plan: Continues to better. Continue current medication plan. Care was discussed with the patient. Encouraged oral intake.
--- NOTE | 2019-05-03 12:53 | PN ---
PROGRESS NOTE A 58-year-old lady with aortic stenosis, status post aortic valve replacement, doing well. Remains in sinus rhythm. Blood pressure is well controlled. CURRENT MEDICATIONS: Current medications include aspirin, Plavix, lisinopril. PHYSICAL EXAMINATION: On exam, comfortable at rest. Vital signs are stable. Chest exam reveals diminished air entry at the bases. Heart exam reveals first and second heart sounds. No gallop. Examination of the extremities did not reveal any edema. Peripheral pulses are felt. ASSESSMENT: Status post aortic valve replacement. PLAN: Patient is doing well. Continue current measures. Hopefully home over the next 48 hours. MMODL / IJN: [id number] /
[2019-05-03 17:01] LABS: Glucose,Whole Blood 163 mg/dL (75-99)
[2019-05-03] MEDS: ATORVASTATIN 40 MG TAB PO SCH (20:17)
[2019-05-03] MEDS: SENNOSIDES-DOCUSATE SODIUM 1 EACH TAB PO SCH (20:17)
[2019-05-03 20:30] LABS: Glucose,Whole Blood 131 mg/dL (75-99)
[2019-05-04 02:10] LABS: Glucose,Whole Blood 135 mg/dL (75-99)
[2019-05-04] MEDS: HEPARIN SODIUM,PORCINE 5,000 UNIT/ML 1 ML VIAL SQ SCH ×3 (04:22→20:44)
[2019-05-04 06:05] LABS: Anisocytosis Slight; HCT 25.3 % (34.0-46.0); HGB 8.2 gm/dL (11.4-16.0); MCH 28.5 pg (25.0-35.0); MCHC 32.5 g/dL (31.0-37.0); MCV 87.7 fL (80.0-100.0); Mean Platelet Volume 9.6; RBC 2.88 m/uL (3.80-5.40); RDW 16.9 % (11.5-15.5); WBC 3.8 k/uL (3.8-10.6)
[2019-05-04 06:20] LABS: Glucose,Whole Blood 114 mg/dL (75-99)
[2019-05-04] MEDS: KETOROLAC 30 MG/ML 1 ML VIAL IVP SCH ×3 (06:20→18:05)
[2019-05-04] MEDS: LEVOTHYROXINE 125 MCG TAB PO SCH (06:20)
[2019-05-04 06:21] LABS: Platelet Count 94 k/uL (150-450)
[2019-05-04 06:27] LABS: ALT 31 U/L (9-52); AST 47 U/L (14-36); African American GFR (CKD) >90 (>60 ml/min/1.73 sqM); Albumin 3.1 g/dL (3.5-5.0); Alkaline Phosphatase 60 U/L (38-126); Anion Gap 9 mmol/L; Blood Urea Nitrogen 27 mg/dL (7-17); Calcium 8.3 mg/dL (8.4-10.2); Carbon Dioxide 23 mmol/L (22-30); Chloride 104 mmol/L (98-107); Glucose 115 mg/dL (74-99); Potassium 4.2 mmol/L (3.5-5.1); Sodium 136 mmol/L (137-145); Total Bilirubin 0.8 mg/dL (0.2-1.3); Total Protein 6.3 g/dL (6.3-8.2)
[2019-05-04] MEDS: INSULIN ASPART (NovoLOG) 100 UNIT/ML VIAL SQ SCH ×4 (06:31→20:44)
[2019-05-04] MEDS ORDERED: FUROSEMIDE 10 MG/ML 2 ML VIAL IV STA (07:13)
[2019-05-04] MEDS ORDERED: FUROSEMIDE 10 MG/ML 4 ML VIAL IV STA (07:13)
[2019-05-04] MEDS: PANTOPRAZOLE 40 MG TABLET PO SCH (07:16)
--- NOTE | 2019-05-04 07:23 | P.PN ---
Subjective Progress Note Date: 05/04/19 Principal diagnosis: Critical aortic valve stenosis. Previous medical history of hypertension, hypothyroid, chronic anemia, previous tobacco dependance with preoperative FEV1 64% of predicted, gastroesophageal reflux disease, vitamin D deficiency, preoperative hepatitis C IgG Ab reactive, fatty liver, morbid obesity, depression, family history of premature coronary artery disease. POD #4 aortic valve replacement with a #23 mm Simon Inspiris bioprosthetic aortic valve, clip ligation of the left atrial appendage with a #35 mm Atriclip and an intraoperative transesophageal echocardiogram. Postoperative transaminitis, expected due to her preoperative elevation liver enzymes and history of fatty liver. Postoperative acute blood loss anemia, expected due to her history of anemia, cardiopulmonary bypass and hemodilution. Postoperative thrombocytopenia, expected, dilutional. The patient is currently sitting up in the recliner in no acute distress on the cardiac stepdown unit. Continues to complain of post surgical chest pain with deep inspiration but states pain is controlled with current medication regimen, does complain of shortness of breath with activity. Patient has ambulated in the hallway this morning already. Remains in normal sinus rhythm and is he modynamically stable. No new concerns. Objective - Vital Signs Vital signs: Vital Signs Temp 97.9 F 05/04/19 04:00 Pulse 90 05/04/19 04:00 Resp 16 05/04/19 04:00 BP 115/53 05/04/19 04:00 Pulse Ox 92 L 05/04/19 04:00 Intake & Output 05/03/19 05/04/19 05/04/19 18:59 06:59 18:59 Intake Total 240 120 Output Total 300 Balance -60 120 Weight 109 kg Intake: Oral 240 120 Output: Urine 300 Other: Voiding Method Bedside Commode Toilet # Voids 1 # Bowel Movements 1 ABP, PAP, CO, CI - Last Documented Arterial Blood Pressure 131/68 Pulmonary Artery Pressure 190/190 Cardiac Output 4.5 Cardiac Index 2.1 - Constitutional General appearance: Present: cooperative, no acute distress, obese - Respiratory Details: Lung sounds diminished bilaterally. Respirations even, non-labored. Currently on room air with oxygen saturation 92%. Able to achieve 500-1000 mL on her incentive spirometer. Strong, non-productive cough. - Cardiovascular Details: S1/S2 present. Regular rate and rhythm, normal sinus rhythm on telemetry. Sternum stable. Palpable peripheral pulses bilaterally. No edema present. Heart hugger in place with patient demonstrating appropriate use. Anti-embolism stockings, SCDs in place. - Gastrointestinal Gastrointestinal Comment(s): Abdomen soft, non-tender, non-distended. Active bowel sounds present x 4 quadrants. Tolerating diet. Positive bowel movement this morning. - Genitourinary Genitourinary Comment(s): Voiding clear, yellow urine. - Integumentary Integumentary Comment(s): Skin is warm and dry with evidence of good perfusion. Anterior chest incision well approximated with dry dressing in place. - Neurologic Neurologic: Present: CNII-XII intact - Musculoskeletal Musculoskeletal: Present: gait normal, strength equal bilaterally - Psychiatric Psychiatric: Present: A&O x's 3, appropriate affect, intact judgment & insight - Allied health notes Allied health notes reviewed: nursing - Labs CBC & Chem 7: 05/04/19 05:52 05/04/19 05:52 Labs: Abnormal Lab Results - Last 24 Hours (Table) 05/03/19 05/03/19 05/03/19 Range/Units 11:42 16:59 20:28 RBC (3.80-5.40) m/uL Hgb (11.4-16.0) gm/dL Hct (34.0-46.0) % RDW (11.5-15.5) % Plt Count (150-450) k/uL Sodium (137-145) mmol/L BUN (7-17) mg/dL Glucose (74-99) mg/dL POC Glucose (mg/dL) 126 H 163 H 131 H (75-99) mg/dL Calcium (8.4-10.2) mg/dL AST (14-36) U/L Albumin (3.5-5.0) g/dL 05/04/19 05/04/19 05/04/19 Range/Units 02:09 05:52 05:52 RBC 2.88 L (3.80-5.40) m/uL Hgb 8.2 L (11.4-16.0) gm/dL Hct 25.3 L (34.0-46.0) % RDW 16.9 H (11.5-15.5) % Plt Count 94 L (150-450) k/uL Sodium 136 L (137-145) mmol/L BUN 27 H (7-17) mg/dL Glucose 115 H (74-99) mg/dL POC Glucose (mg/dL) 135 H (75-99) mg/dL Calcium 8.3 L (8.4-10.2) mg/dL AST 47 H (14-36) U/L Albumin 3.1 L (3.5-5.0) g/dL 05/04/19 Range/Units 06:19 RBC (3.80-5.40) m/uL Hgb (11.4-16.0) gm/dL Hct (34.0-46.0) % RDW (11.5-15.5) % Plt Count (150-450) k/uL Sodium (137-145) mmol/L BUN (7-17) mg/dL Glucose (74-99) mg/dL POC Glucose (mg/dL) 114 H (75-99) mg/dL Calcium (8.4-10.2) mg/dL AST (14-36) U/L Albumin (3.5-5.0) g/dL - Imaging and Cardiology Chest x-ray: image reviewed Assessment and Plan Assessment: 1. Critical aortic valve stenosis, status post bioprostetic aortic valve replacement 2. History of hypertension 3. History of hypothyroidism 4. Chronic anemia 5. Previous tobacco dependance with preoperative FEV1 64% of predicted 6. GERD 7. Vitamin D deficiency 8. Hepatitis C IgG Ab reactive preoperatively 9. History of fatty liver with preoperative elevation of her AST 10. Morbid obesity 11. Depression 12. Family history of premature coronary artery disease 13. Postoperative transaminitis, expected 14. Postoperative acute blood loss anemia, expected 15. Postoperative thrombocytopenia, expected Plan: 1. Continue aspirin, Plavix, statin, beta nadine. Will increase beta nadine as tolerated, increased to 25 mg twice daily. 2. Continue lisinopril 2.5 mg by mouth daily at noon for afterload reduction. 3. Encourage incentive spirometry 10 times every hour while awake. Encourage continued smoking cessation. 4. Bronchodilators per pulmonology. 5. Will monitor daily labs and x-rays. Electrolyte replacements per protocol. 6. GI and DVT prophylaxis. 7. Pain control with current medication regimen. 8. Increase activity as tolerated, PT/OT, cardiac rehab following. 9. Insulin management per primary care service. 10. Will give IV lasix today. 11. Discharge planning in progress. Anticipate discharge to home with home care this afternoon vs. tomorrow morning. 12. More recommendations to follow based on patient's progress. Time with Patient: Greater than 30
--- NOTE | 2019-05-04 07:40 | XR ---
EXAMINATION TYPE: XR chest 2V DATE OF EXAM: 05/04/2019 COMPARISON: 05/03/2019 HISTORY: Status post cardiac surgery. Follow-up exam. TECHNIQUE: Frontal and lateral views of the chest are obtained. FINDINGS: There is an proving left pleural effusion, small and trace right pleural effusion. Mild pu lmonary vascular congestion remains. Cardiomediastinal silhouette is enlarged with post operative devon nges. Mild multilevel degenerative changes of the spine. Cholecystectomy clips are seen. Cardiac cran ioplasty is noted . IMPRESSION: Improving small left and persistent trace right pleural effusions and mild pulmonary vas cular congestion status post cardiac surgery.
[2019-05-04] MEDS: CHOLECALCIFEROL 1,000 UNIT TAB PO SCH (08:22)
[2019-05-04] MEDS: CITALOPRAM HYDROBROMIDE 20 MG TAB PO SCH (08:22)
[2019-05-04] MEDS: ASPIRIN 325 MG TAB PO SCH (08:22)
[2019-05-04] MEDS: METOPROLOL TARTRATE 12.5 MG TAB PO SCH ×2 (08:23→20:44)
[2019-05-04] MEDS: FERROUS SULFATE 325 MG TAB PO SCH ×2 (08:23→20:44)
[2019-05-04] MEDS: CLOPIDOGREL 75 MG TAB PO SCH (08:23)
[2019-05-04] MEDS: IPRATROPIUM-ALBUTEROL 3 ML NEB INHALATION SCH ×4 (08:47→20:24)
[2019-05-04 11:34] LABS: Glucose,Whole Blood 143 mg/dL (75-99)
--- NOTE | 2019-05-04 12:18 | P.PN ---
Subjective Progress Note Date: 05/04/19 Principal diagnosis: Status post aortic valve replacement, postoperative day #4. This is a 58-year-old female with known history of hypertension, fatty liver, hypothyroidism, patient was recently diagnosed with severe aortic stenosis, aortic valve area was calculated to be in the range of 1 cm there was also evidence of [id number] aortic regurgitation, there was no evidence of significant coronary artery disease on her most recent cardiac catheterization. Patient underwent elective aortic valve replacement today, and postoperatively she was on mechanical ventilation, hence I was asked to see her on consultation. Presently the patient is on SIMV mode of mechanical ventilation, rate of 18, tidal volume of 400, FiO2 is 40%, and PEEP of 5. ABG showed a pO2 of 214 pCO2 of 44 pH of 7.35. Postoperative chest x-ray showed adequate placement of the endotracheal tube, orogastric tube, and a right sided chest tube. There was no evidence of pneumothorax. It was basically a satisfactory postoperative chest x-ray. Reevaluated today on 05/01/2019, patient was extubated a few hours after I saw her yesterday, she is presently on few liters nasal cannula, asymptomatic, does have some vague incisional pain in the chest. No shortness of breath no cough no wheezing. Chest x-ray is relatively unremarkable. Postoperative trace of bilateral pleural effusions noted and subsegmental atelectasis, expected findings after cardiac surgery. WBC count today is 15.8 hemoglobin is 11.5. Basic metabolic profile is normal. Reevaluated today on 05/02/2019, patient remains in the ICU, doing extremely well. Her right-sided chest pain has resolved. Patient is relatively asymptomatic, O2 saturation is 93% on 2 L. Achieving about 750 ML on her incentive spirometry. Patient is not requiring any inotropes or any pressors. Patient is in sinus rhythm rate of 73. Labs were noted to be relatively normal hemoglobin is 9.8 chest x-ray showed subsegmental atelectasis and trace of pleural effusions. Reevaluated today on 05/03/2019, patient had no medical issues over the last 24 hours. Patient is doing great, sitting in a recliner, in no distress, all tubes have been discontinued, patient is actually on room air. She is presently overflow in the ICU. Chest x-ray is reassuring, labs were all reviewed. The patient is seen today 05/03/2019 in follow-up on the selective care unit. She is currently sitting up in a chair at the bedside. She is awake and alert in no acute distress. Her pain is well controlled. She is working well with the incentive spirometer. Continues to maintain good O2 saturations in the 90s on room air. She's been afebrile. Hemodynamically stable. White count 3.8. Hemoglobin 8.2. Platelet count 94,000. Creatinine 0.77. Chest x-ray reveals improvement in the small left pleural effusion and persistent trace right pleural effusion with some mild vascular congestion. She was given Lasix 20 mg IVP 1 today. Objective - Vital Signs Vital signs: Vital Signs Temp 98.5 F 05/04/19 08:00 Pulse 80 05/04/19 08:47 Resp 18 05/04/19 08:00 BP 116/55 05/04/19 08:00 Pulse Ox 98 05/04/19 08:47 Intake & Output 05/03/19 05/04/19 05/04/19 18:59 06:59 18:59 Intake Total 240 120 120 Output Total 300 Balance -60 120 120 Weight 109 kg Intake: Oral 240 120 120 Output: Urine 300 Other: Voiding Method Bedside Commode Toilet # Voids 1 # Bowel Movements 1 ABP, PAP, CO, CI - Last Documented Arterial Blood Pressure 131/68 Pulmonary Artery Pressure 190/190 Cardiac Output 4.5 Cardiac Index 2.1 - Exam GENERAL EXAM: Very pleasant 58-year-old female. Alert, active, comfortable in no apparent distress. On room air. HEAD: Normocephalic. EYES: Normal reaction of pupils, equal size. NOSE: Clear with pink turbinates. THROAT: No erythema or exudates. NECK: No masses, no JVD. CHEST: Sternum stable. LUNGS: Equal air entry with faint crackles in the posterior bases. CVS: S1 and S2 normal with no audible murmur, regular rhythm. ABDOMEN: No hepatosplenomegaly, normal bowel sounds, no guarding or rigidity. SPINE: No scoliosis or deformity SKIN: No rashes CENTRAL NERVOUS SYSTEM: No focal deficits, tone is normal in all 4 extremities. EXTREMITIES: There is no peripheral edema. No clubbing, no cyanosis. Peripheral pulses are intact. - Labs CBC & Chem 7: 05/04/19 05:52 05/04/19 05:52 Labs: Abnormal Lab Results - Last 24 Hours (Table) 05/03/19 05/03/19 05/04/19 Range/Units 16:59 20:28 02:09 RBC (3.80-5.40) m/uL Hgb (11.4-16.0) gm/dL Hct (34.0-46.0) % RDW (11.5-15.5) % Plt Count (150-450) k/uL Sodium (137-145) mmol/L BUN (7-17) mg/dL Glucose (74-99) mg/dL POC Glucose (mg/dL) 163 H 131 H 135 H (75-99) mg/dL Calcium (8.4-10.2) mg/dL AST (14-36) U/L Albumin (3.5-5.0) g/dL 05/04/19 05/04/19 05/04/19 Range/Units 05:52 05:52 06:19 RBC 2.88 L (3.80-5.40) m/uL Hgb 8.2 L (11.4-16.0) gm/dL Hct 25.3 L (34.0-46.0) % RDW 16.9 H (11.5-15.5) % Plt Count 94 L (150-450) k/uL Sodium 136 L (137-145) mmol/L BUN 27 H (7-17) mg/dL Glucose 115 H (74-99) mg/dL POC Glucose (mg/dL) 114 H (75-99) mg/dL Calcium 8.3 L (8.4-10.2) mg/dL AST 47 H (14-36) U/L Albumin 3.1 L (3.5-5.0) g/dL 05/04/19 Range/Units 11:31 RBC (3.80-5.40) m/uL Hgb (11.4-16.0) gm/dL Hct (34.0-46.0) % RDW (11.5-15.5) % Plt Count (150-450) k/uL Sodium (137-145) mmol/L BUN (7-17) mg/dL Glucose (74-99) mg/dL POC Glucose (mg/dL) 143 H (75-99) mg/dL Calcium (8.4-10.2) mg/dL AST (14-36) U/L Albumin (3.5-5.0) g/dL Assessment and Plan Assessment: Impression: Status post aortic valve replacement with a #23 mm bioprosthetic aortic valve, clip ligation of left atrial appendage. Postoperative day #4 History of benign essential hypertension. Recommendation: The patient was seen and evaluated by Dr. Stockton. Chest x-ray and labs reviewed. She did receive 20 mg of IV Lasix today. She is doing well from the pulmonary standpoint. Working well with the incentive spirometer. Maintaining good O2 saturations in the 90s on room air. Plan is for probable discharge today. I, the cosigning physician, performed a history & physical examination of the patient. Lungs sounds with faint crackles in the bilateral posterior bases. Maintaining good O2 saturations in the 90s on room air. I discussed the assessment and plan of care with my nurse practitioner, Kaycee Jimenez. I attest to the above note as dictated by her.
--- NOTE | 2019-05-04 12:37 | PN ---
PROGRESS NOTE A 58-year-old lady was admitted to hospital for aortic valve replacement. She is doing well. Had mild shortness of breath and received Lasix this morning, but overall she is doing good. Afebrile. Vital signs are stable. O2 saturation is 98% on room air. Chest exam reveals good air entry bilaterally. Heart exam reveals first and second heart sounds. No gallop. Exam of extremities did not reveal any edema. Peripheral pulses are felt. LABS: Show a hemoglobin of 8.2 potassium is 4.2 creatinine is 0.7. ASSESSMENT: Aortic stenosis status post aortic valve replacement. PLAN: Patient is doing well. Possibly home today. Follow up with Dr. Sapna Montgomery. MMODL / IJN: [id number] /
[2019-05-04 12:38] VITALS: RESP 16
[2019-05-04] MEDS: LISINOPRIL 2.5 MG TAB PO SCH (12:39)
[2019-05-04] MEDS: ACETAMINOPHEN TAB 500 MG TAB PO PRN ×2 (15:29→20:47)
[2019-05-04 16:45] LABS: Glucose,Whole Blood 124 mg/dL (75-99)
--- NOTE | 2019-05-04 19:36 | P.PN ---
Progress Note - Text Progress Note Date: 05/04/19 - Chief Complaint Aortic valve replacement Interval history: This is a 58-year-old patient of Dr. Hall. Chronic stable medical conditions include hypertension, hypothyroid, fatty liver, depression. Patient has undergone aortic valve replacement. Today-continues to feel better. Sitting upon a chair. No new issues. Eating better. Did ambulate. Breathing stable. Review of systems: Was done for constitutional, cardiovascular, GI, pulmonary. relevant finding as above Active Medications Acetaminophen (Tylenol Tab) 1,000 mg PO Q6HR PRN PRN Reason: Fever and/ or Pain Last Admin: 05/04/19 15:29 Dose: 1,000 mg Documented by: Albuterol/Ipratropium (Duoneb 0.5 Mg-3 Mg/3 Ml Soln) 3 ml INHALATION RT-Q2H PRN PRN Reason: Shortness Of Breath Or Wheezing Albuterol/Ipratropium (Duoneb 0.5 Mg-3 Mg/3 Ml Soln) 3 ml INHALATION RT-QID [facility] Last Admin: 05/04/19 16:07 Dose: 3 ml Documented by: Aspirin (Aspirin) 325 mg PO DAILY [facility] Last Admin: 05/04/19 08:22 Dose: 325 mg Documented by: Atorvastatin Calcium (Lipitor) 40 mg PO HS [facility] Last Admin: 05/03/19 20:17 Dose: 40 mg Documented by: Bisacodyl (Dulcolax) 10 mg RECTAL DAILY PRN PRN Reason: Constipation Cholecalciferol (Vitamin D3 (25 Mcg = 1000 Iu)) 2,000 unit PO DAILY [facility] Last Admin: 05/04/19 08:22 Dose: 2,000 unit Documented by: Citalopram Hydrobromide (Celexa) 40 mg PO QAM [facility] Last Admin: 05/04/19 08:22 Dose: 40 mg Documented by: Clopidogrel Bisulfate (Plavix) 75 mg PO DAILY [facility] Last Admin: 05/04/19 08:23 Dose: 75 mg Documented by: Ferrous Sulfate (Feosol) 325 mg PO BID [facility] Last Admin: 05/04/19 08:23 Dose: 325 mg Documented by: Heparin Sodium (Porcine) (Heparin) 5,000 unit SQ Q8H [facility] Last Admin: 05/04/19 12:40 Dose: 5,000 unit Documented by: Amiodarone HCl 150 mg/ (Dextrose/Water) 103 mls @ 618 mls/hr IV .Q10M PRN; Protocol PRN Reason: A.FIB/FLUTTER Amiodarone HCl 360 mg/ (Dextrose/Water) 200 mls @ 33.333 mls/hr IV .Q6H PRN; Protocol PRN Reason: A.FIB/FLUTTER Amiodarone HCl 300 mg/ (Dextrose/Water) 250 mls @ 25 mls/hr IV .Q10H PRN; Protocol PRN Reason: A.FIB/FLUTTER Insulin Aspart (Novolog) 0 unit SQ ACHS [facility]; Protocol Last Admin: 05/04/19 17:00 Dose: Not Given Documented by: Ketorolac Tromethamine (Toradol) 15 mg IVP Q6HR [facility] Stop: 05/04/19 21:07 Last Admin: 05/04/19 18:05 Dose: 15 mg Documented by: Levothyroxine Sodium (Synthroid) 125 mcg PO DAILY@0630 [facility] Last Admin: 05/04/19 06:20 Dose: 125 mcg Documented by: Lisinopril (Zestril) 2.5 mg PO Q24H [facility] Last Admin: 05/04/19 12:39 Dose: 2.5 mg Documented by: Magnesium Hydroxide (Milk Of Magnesia) 2,400 mg PO BID PRN PRN Reason: Constipation Metoclopramide HCl (Reglan) 10 mg IVP Q4H PRN PRN Reason: Nausea And Vomiting Metoprolol Tartrate (Lopressor) 25 mg PO BID [facility] Last Admin: 05/04/19 08:23 Dose: 25 mg Documented by: Miscellaneous Information (Magnesium Per Protocol) 1 each MISCELLANE DAILY PRN; Protocol PRN Reason: Per Protocol Miscellaneous Information (Phosphorus Per Protocol) 1 each MISCELLANE DAILY PRN; Protocol PRN Reason: Per Protocol Miscellaneous Information (Potassium Per Protocol) 1 each MISCELLANE DAILY PRN; Protocol PRN Reason: Per Protocol Ondansetron HCl (Zofran) 4 mg IVP Q6HR PRN PRN Reason: Nausea And Vomiting Pantoprazole Sodium (Protonix) 40 mg PO -BRKFST [facility] Last Admin: 05/04/19 07:16 Dose: 40 mg Documented by: Senna/Docusate Sodium (Senokot-S) 2 each PO HS [facility] Last Admin: 05/03/19 20:17 Dose: 2 each Documented by: Physical examination: VITAL SIGNS: 98.5, 84, 16, 108/52, 97% room air GENERAL: Sitting up in a chair, comfortable. EYES: Pupils equal. Conjunctiva normal. HEENT: External appearance of nose and ears normal, oral cavity grossly normal. NECK: JVD unable to assess; masses not palpable. HEART: First and second heart sounds are normal; no edema. LUNGS: Respiratory rate normal, decreased breath sounds. ABDOMEN: Soft, nontender, liver spleen not palpable, no masses palpable. PSYCH: Alert and oriented x3; mood and affect normal. Investigations, reviewed in the clinical context: White count 3.8 hemoglobin 8.2 platelets 94 potassium 4.2 creatinine 0.77 [id number], 143, 124 Assessment: -Aortic valve replacement with Simon bioprosthetic aortic valve with clip ligation of the left atrial appendage an intraoperative TREY -Obesity BMI 39.0 -Essential hypertension -Hepatic steatosis -Hypothyroidism -Depression otherwise specified -Acute postop blood loss anemia as expected from surgery -Dilutional thrombocytopenia Plan: Overall much improved. Doing much better. Continue current medication treatm ent plan.
[2019-05-04 20:36] LABS: Glucose,Whole Blood 169 mg/dL (75-99)
[2019-05-04] MEDS: SENNOSIDES-DOCUSATE SODIUM 1 EACH TAB PO SCH (20:43)
[2019-05-04] MEDS: ATORVASTATIN 40 MG TAB PO SCH (20:44)
[2019-05-05] MEDS: KETOROLAC 30 MG/ML 1 ML VIAL IVP PRN ×2 (00:55→08:53)
[2019-05-05] MEDS: HEPARIN SODIUM,PORCINE 5,000 UNIT/ML 1 ML VIAL SQ SCH (04:58)
[2019-05-05 06:24] LABS: Glucose,Whole Blood 117 mg/dL (75-99)
[2019-05-05] MEDS: INSULIN ASPART (NovoLOG) 100 UNIT/ML VIAL SQ SCH (06:24)
[2019-05-05] MEDS: PANTOPRAZOLE 40 MG TABLET PO SCH (06:37)
[2019-05-05] MEDS: LEVOTHYROXINE 125 MCG TAB PO SCH (06:37)
[2019-05-05] MEDS: ACETAMINOPHEN TAB 500 MG TAB PO PRN (06:39)
[2019-05-05 06:52] LABS: Anisocytosis Slight; HCT 26.2 % (34.0-46.0); HGB 8.6 gm/dL (11.4-16.0); MCH 28.9 pg (25.0-35.0); MCHC 32.7 g/dL (31.0-37.0); MCV 88.3 fL (80.0-100.0); Mean Platelet Volume 8.2; Platelet Count 116 k/uL (150-450); RBC 2.97 m/uL (3.80-5.40); RDW 17.1 % (11.5-15.5); WBC 3.8 k/uL (3.8-10.6)
--- NOTE | 2019-05-05 07:18 | P.DS ---
Providers Date of admission: 04/30/19 05:47 Expected date of discharge: 05/05/19 Attending physician: Pipo Hines Consults: 04/30/19 12:35 Consult Physician Routine Consulting Provider: Rajesh Figueroa Consult Reason/Comments: med management, Rafael patient Do you want consulting provider notified?: Yes 04/30/19 12:36 Consult Physician Routine Consulting Provider: Goran Stockton Consult Reason/Comments: Registered Representative Consult: post cardiac surgery Do you want consulting provider notified?: Yes Consult Physician Routine Consulting Provider: Syeda Montgomery Consult Reason/Comments: Professional System Administrator Consult: post cardiac surgery Do you want consulting provider notified?: Yes Primary care physician: [facility] Course: FINAL DIAGNOSIS: 1. Critical aortic valve stenosis 2. History of hypertension 3. Hypothyroid 4. Chronic anemia 5. Previous tobacco dependence with preoperative FEV1 64% of protected 6. GERD 7. Vitamin D deficiency 8. Preoperative hepatitis C IgG AB reactive 9. Fatty liver 10. Morbid obesity 11. Depression 12. Family history of premature coronary artery disease 13. Postoperative transaminitis 14. Postoperative acute blood loss anemia 15. Postoperative delusional thrombocytopenia PRINCIPAL PROCEDURE: 1. Aortic valve replacement with 23 mm Simon Inspiris bioprosthetic aortic valve 2. Clip ligation of the left atrial appendage with a 35 mm AtriClip 3. Intraoperative transesophageal echocardiogram HISTORY OF PRESENT ILLNESS: This is a 58-year-old active female patient he follows on an outpatient basis with Dr. Hall as well as Dr Montgomery from [facility]. She presented to her thermodynamicist with complaints of increasing shortness of breath for approximately a 6 month period. Normally she is a very active person but her shortness of breath began to impact her activities. She denied any other symptoms including no chest pain, dizziness, nausea, vomiting, cough/congestion. Transthoracic echocardiogram was completed demonstrating normal left ventricular function with EF 60%, severe aortic regurgitation with moderate aortic stenosis and a valve area of 1.18 cm with a peak/mean gradient 64 mmHg/38 mmHg, and moderate mitral regurgitation. She was recommended to undergo heart catheterization and transesophageal echocardiogram. Heart catheterization revealed no clinically obstructive coronary artery disease. Transesophageal echocardiogram demonstrated a calcified tricuspid aortic valve with valve area 1 cm suggesting severe aortic stenosis with moderate aortic regurgitation and mild mitral regurgitation. The patient was referred to Dr. Hines from cardiothoracic surgery. She was recommended to undergo bioprosthetic aortic valve replacement. The usual perioperative course was discussed in detail with the patient and her family, all risks and benefits were explained, all questions were answered, and consent was obtained to proceed with surgery. Surgery was scheduled at the earliest possible date once dental clearance was obtained. HOSPITAL COURSE: The patient was brought to the hospital on 04/30/2019, taken to the preoperative area, prepared in the usual fashion, and subsequently taken to the operating room where Dr. Hines performed aortic valve replacement with 23 mm Simon Inspiris bioprosthetic aortic valve, clip ligation of the left atrial appendage with a 35 mm AtriClip, and intraoperative transesophageal echocardiogram. Upon completion of surgery the patient was transferred to the cardiovascular intensive care unit where she was recovered, monitored hemodynamically, and where she progressed to cardiac rehabilitation phase 1. She was extubated, all lines, tubes, and drips were discontinued when appropriate, and she was transferred to [facility] cardiac step-down unit for further monitoring and rehabilitation. She did develop postoperative transaminitis, acute blood loss anemia, and delusional thrombocytopenia, without any treatment intervention necessary. Her oxygen was titrated down, she continued to work with physical and occupational therapy, she was tolerating oral diet, her pain was controlled, and she was ready to be discharged to home with [facility] on postoperative day #5. She received written and verbal instruction regarding her medications, activity restrictions, signs and symptoms requiring physician notification, and follow-up appointments. COMPLICATIONS: The patient experienced postoperative complications of transaminitis, acute blood loss anemia, and delusional thrombocytopenia, none of which required intervention.. Patient Condition at Discharge: Stable Plan - Discharge Summary Discharge Rx Participant: No New Discharge Prescriptions: New Furosemide [Lasix] 20 mg PO DAILY #7 tab Atorvastatin [Lipitor] 40 mg PO HS #30 tab Metoprolol Tartrate [Lopressor] 25 mg PO BID #60 tab Clopidogrel [Plavix] 75 mg PO DAILY #30 tab Pantoprazole [Protonix] 40 mg PO AC-BRKFST #[address] Reid-Docusate Sodium [Senokot-S] 2 each PO HS PRN #14 tab PRN Reason: Constipation Acetaminophen Tab [Tylenol] 1,000 mg PO Q6HR PRN #120 tab PRN Reason: Fever And/ Or Pain Lisinopril [Zestril] 2.5 mg PO Q24H #30 tab Continue Cholecalciferol (Vitamin D3) [Vitamin D3] 2,000 unit PO DAILY Levothyroxine Sodium [Synthroid] 125 mcg PO QAM Ferrous Sulfate [Iron] 325 mg PO BID Citalopram Hydrobromide [CeleXA] 40 mg PO QAM Aspirin 325 tab PO DAILY #30 tab Discontinued Famotidine [Pepcid] 20 mg PO BID amLODIPine [Norvasc] 5 mg PO HS HYDROcodone/APAP 5-325MG [[place] 5-325] 1 tab PO Q6HR PRN PRN Reason: Pain Discharge Medication List Cholecalciferol (Vitamin D3) [Vitamin D3] 2,000 unit PO DAILY 03/27/19 [History] Citalopram Hydrobromide [CeleXA] 40 mg PO QAM 03/27/19 [History] Ferrous Sulfate [Iron] 325 mg PO BID 03/27/19 [History] Levothyroxine Sodium [Synthroid] 125 mcg PO QAM 03/27/19 [History] Acetaminophen Tab [Tylenol] 1,000 mg PO Q6HR PRN #120 tab 05/05/19 [Rx] Aspirin 325 tab PO DAILY #30 tab 05/05/19 [Rx] Atorvastatin [Lipitor] 40 mg PO HS #30 tab 05/05/19 [Rx] Clopidogrel [Plavix] 75 mg PO DAILY #30 tab 05/05/19 [Rx] Furosemide [Lasix] 20 mg PO DAILY #7 tab 05/05/19 [Rx] Lisinopril [Zestril] 2.5 mg PO Q24H #30 tab 05/05/19 [Rx] Metoprolol Tartrate [Lopressor] 25 mg PO BID #60 tab 05/05/19 [Rx] Pantoprazole [Protonix] 40 mg PO AC-BRKFST #30 tablet. 05/05/19 [Rx] Sennosides-Docusate Sodium [Senokot-S] 2 each PO HS PRN #14 tab 05/05/19 [Rx] Follow up Appointment(s)/Referral(s): Goran Stockton MD [STAFF PHYSICIAN] - 05/24/19 2:30 pm (With Kaycee Jimenez NP.) Missy Gonzalez NPC [Nurse Practitioner] - 05/09/19 1:00 pm Syeda Montgomery MD [STAFF PHYSICIAN] - 05/16/19 9:15 am Odilon Hall MD [Primary Care Provider] - 1 Week (Office will call on Tuesday with a follow up appointment. ) [facility], [NON-STAFF] - 1 Week Pipo Hines MD [STAFF PHYSICIAN] - 4 Weeks (Office will call with appointment.) Ambulatory/Diagnostic Orders: Complete Blood Count w/diff [LAB.AMB] Time Frame: 3 Days, Location: None Selected Comprehensive Metabolic Panel [LAB.AMB] Time Frame: 3 Days, Location: None Selected Patient Instructions/Handouts: Aortic Valve Replacement (DC), Sternal Precautions (GEN) Activity/Diet/Wound Care/Special Instructions: DISCHARGE INSTRUCTIONS: 1. No driving for 4 weeks, or until physician gives their ok. 2. The patient should sleep in their own bed, no medical bed needed. 3. Stairs are not an issue. If the bedroom is upstairs, it is advised that the patient go up at night and down in the morning for the first week. Go slowly, using handrail and take 1 step at a time. 4. EVELIO hose are to be worn for 30 days or until physician discontinues. 5. Heart hugger is to be worn 100% of the time until physician discontinues.(except when showering) 6. No lifting, pushing, or pulling more than 10 pounds for 12 weeks. The physician will advise of any restriction changes. 7. The patient is expected to continue the prescribed walking program. 8. Continue pain control per as needed orders. 9. Continue with incentive spirometry and splinting/heart hugger until otherwise directed by the physician. 10. Must shower daily using liquid antibacterial soap and a separate white washcloth for each individual incision. 11. Routine sternal incision care. No powders, lotions, ointments on incisions. 12. Please call surgeon/PROMOTIONAL DEMONSTRATOR for temp greater than 101 F or purulent drainage from incisions. 13. All prescriptions given by surgeon for 30 days. Refills need to be filled through thermodynamicist/primary care physician. 14. A Red armband has been placed on the patient. It should be worn for 30 days post surgery and will be removed by the cardiac surgeons. If an ER visit is necessary, please make sure the number on the Red armband is called. HOME HEALTH SERVICES TO PROVIDE: RN SKILLED HOME CARE SERVICES FOR POST-OP SURGICAL PATIENTS WITH THE FOLLOWING: Coronary Artery Bypass Surgery (CABG), Mitral Valve Replacement/Repair ( MVR), Aortic Valve Replacement/Repair (AVR) RN TO CONTINUE EDUCATION FROM ``ROAD TO A HEALTH HEART PATIENT EDUCATION MANUAL (GIVEN TO PATIENT IN THE HOSPITAL) MEDICATION RECONCILIATION WITH EDUCATION NEEDED ON FIRST HOME VISIT EMPHASIZE IMPORTANCE OF WEARING BREAST SUPPORT/HEART HUGGER ENCOURAGE USE OF INCENTIVE SPIROMETER 10 X EVERY HOUR WHILE AWAKE ENCOURAGE UTILIZATION OF LOWER EXTREMITY COMPRESSION STOCKINGS/EVELIO HOSE and ELEVATE LEGS ABOVE LEVEL OF HEART WHILE AT REST. ENCOURAGE AMBULATION 3-5x/day INCREASING TOLERATES, WHILE AVOID EXTREMES IN TEMPERATURE FREQUENCY: RN TO OPEN THE PATIENT WITHIN 24 HOURS OF DISCHARGE FROM THE HOSPITAL WITH TELEHEALTH INSTALLED AT [facility] [place], RN TO VISIT 2-3 X A WEEK FOR 4 WEEKS ESTABLISHED BY PATIENT NEEDS. LABORATORY: CBC, CMP TO BE DRAWN ON THE THIRD DAY HOME, (RAN STAT) FAX RESULTS TO [phone]. TELEHEALTH PARAMETERS: WEIGHT: NOTIFY MD OF WEIGHT GAIN OF 2 LBS IN 24 HOURS OR 5 LBS IN ONE WEEK HR: NOTIFY MD OF HR <55 BPM OR HR>100 BPM BP: NOTIFY MD IF BP <90/55 OR BP>140/100 O2 SAT: NOTIFY MD IF PO2<93% ON ROOM AIR SEND TELEHEALTH REPORT TO [facility]GE[facility] THE FIRST WEEK OF CARE AND THEN BI-WEEKLY. PLEASE ADDITIONALLY COMMUNICATE ANY ABNORMALS AND NEW FINDINGS TO THE SURGEONS OFFICE. Discharge Disposition: HOME WITH HOME HEALTH SERVICES
[2019-05-05 07:28] LABS: African American GFR (CKD) >90 (>60 ml/min/1.73 sqM); Anion Gap 7 mmol/L; Blood Urea Nitrogen 25 mg/dL (7-17); Calcium 8.2 mg/dL (8.4-10.2); Carbon Dioxide 23 mmol/L (22-30); Chloride 107 mmol/L (98-107); Glucose 114 mg/dL (74-99); Potassium 4.2 mmol/L (3.5-5.1); Sodium 137 mmol/L (137-145)
[2019-05-05] MEDS: IPRATROPIUM-ALBUTEROL 3 ML NEB INHALATION SCH (07:58)
[2019-05-05 08:46] VITALS: BP 118/74; PULSE 78; TEMP 98
[2019-05-05] MEDS: FERROUS SULFATE 325 MG TAB PO SCH (08:52)
[2019-05-05] MEDS: CHOLECALCIFEROL 1,000 UNIT TAB PO SCH (08:52)
[2019-05-05] MEDS: CLOPIDOGREL 75 MG TAB PO SCH (08:52)
[2019-05-05] MEDS: CITALOPRAM HYDROBROMIDE 20 MG TAB PO SCH (08:52)
[2019-05-05] MEDS: METOPROLOL TARTRATE 12.5 MG TAB PO SCH (08:52)
[2019-05-05] MEDS: ASPIRIN 325 MG TAB PO SCH (08:52)
--- NOTE | 2019-05-05 08:55 | XR ---
EXAM: XR Chest, 2 Views CLINICAL HISTORY: post cardiac surgery TECHNIQUE: Frontal and lateral views of the chest. COMPARISON: Yesterday FINDINGS: Lungs: Mild diffuse airspace opacities in both lungs with central distribution, unchanged. Pleural space: Small bilateral pleural effusions, unchanged. No pneumothorax. Mediastinum: Mediastinal clips are again noted. Bones/joints: Sternal wires and prosthetic heart valve are again noted. IMPRESSION: No substantial change.
== END 2019-05-05 11:07 | disposition home health service (06) | DRG 220 ==
LOC: 2ORMAIN 05:47 → 2SICU 12:33 → 3SCARD 05-03 14:44
PROVIDERS: ADMIT Thoracic Surgery (Cardiothoracic Vascular Surgery); ATTEND Thoracic Surgery (Cardiothoracic Vascular Surgery)
PROC: 02L70CK Occlusion of Left Atrial Appendage with Extraluminal Device, Open Approach (ICD-10-PCS; 2019-04-30)
PROC: B246ZZ4 Ultrasonography of Right and Left Heart, Transesophageal (ICD-10-PCS; 2019-04-30)
PROC: 5A1221Z Performance of Cardiac Output, Continuous (ICD-10-PCS; 2019-04-30)
PROC: 02RF08Z Replacement of Aortic Valve with Zooplastic Tissue, Open Approach (ICD-10-PCS; principal; 2019-04-30 08:00)
DX: I08.0 Rheumatic disorders of both mitral and aortic valves (principal); D62 Acute posthemorrhagic anemia; J98.11 Atelectasis; B19.20 Unspecified viral hepatitis C without hepatic coma; D69.59 Other secondary thrombocytopenia; E55.9 Vitamin D deficiency, unspecified; E66.01 Morbid (severe) obesity due to excess calories; E89.0 Postprocedural hypothyroidism; Z87.891 Personal history of nicotine dependence; F32.9 Major depressive disorder, single episode, unspecified; I10 Essential (primary) hypertension; K21.9 Gastro-esophageal reflux disease without esophagitis; K76.0 Fatty (change of) liver, not elsewhere classified; Z68.39 Body mass index [BMI] 39.0-39.9, adult; Z79.890 Hormone replacement therapy; Z82.49 Family history of ischemic heart disease and other diseases of the circulatory system; R74.0 Nonspecific elevation of levels of transaminase and lactic acid dehydrogenase [LDH]; Z79.82 Long term (current) use of aspirin; Z79.899 Other long term (current) drug therapy; Z91.041 Radiographic dye allergy status; Z91.040 Latex allergy status
CPT/HCPCS: 71045; 71046; 80048; 80053; 82330; 82805; 83036; 83735; 85025; 85027; 85520; 85610; 85730; 86850; 86891; 86900; 86901; 86920; 88305; 88311; 94002; 94640; 94760

== ENCOUNTER 2019-05-08 01:28 | Observation (INO) | payer MEDICAID ==
[2019-05-08] MEDS ORDERED: SODIUM CHLORIDE 0.9% 500 ML 500 ML IV STA (01:46)
--- NOTE | 2019-05-08 02:18 | ED ---
General Adult HPI - General Chief complaint: Arrhythmia/Palpitations Stated complaint: Cardiac Issues Time Seen by Provider: 05/08/19 01:36 Source: EMS Mode of arrival: EMS Limitations: no limitations - History of Present Illness Initial comments: Dictation was produced using [employer] dictation software. please excuse any grammatical, word or spelling errors. Chief Complaint: 58-year-old female status post aortic valve replacement presents with palpitations. History of Present Illness: 58-year-old female presents with chief complaint of palpitations. Patient states today she had episode of palpitations that lasted for several hours. Patient states she has a history of palpitations however they don't normally last this long. Normally her palpitations last for a couple minutes. During this episode of palpitations she did feel faint. Patient is 7 days postop from aortic valve replacement performed by Dr. Hines. Patient also complains of some painful swallowing. She states that it hurts especially when it gets to around the mid chest after she swallows food. Patient otherwise feels unwell however not able to specifically pinpoint what her symptoms are exactly. Patient denies any pain complaints. The ROS documented in this emergency department record has been reviewed and confirmed by me. Those systems with pertinent positive or negative responses have been documented in the HPI. All other systems are other negative and/or noncontributory. PHYSICAL EXAM: General Impression: Alert and oriented x3, not in acute distress HEENT: Normocephalic atraumatic, extra-ocular movements intact, pupils equal and reactive to light bilaterally, mucous membranes moist. Cardiovascular: Heart regular rate and rhythm, S1&S2 audible, no murmurs, rubs or gallops Chest: Lungs clear to auscultation bilaterally, no rhonchi, no wheeze, no rales, sternal surgical site clean and dry and intact without any signs of drainage Abdomen: Bowel sounds present, abdomen soft, non-tender, non-distended, no organomegaly Musculoskeletal: Pulses present and equal in all extremities, no peripheral edema Motor: no focal deficits noted Neurological: CN II-XII grossly intact, no focal motor or sensory deficits noted Skin: Intact with no visualized rashes Psych: Normal affect and mood ED course: 58-year-old female presents with chief complaint of prolonged episode of palpitations. Patient has secondary complaint of painful swallowing since postop. Vital signs upon arrival are within acceptable limits. EKG is shows nonspecific findings. EKGs benign. Laboratory evaluation obtained. CBC unremarkable. Metabolic panel is negative. Patient has troponin of 0.467 which likely due to recent surgery. TSH elevated at 11.1 urinalysis negative. Chest x-ray shows pleural effusion. This likely secondary to postoperative changes. While in emergency department patient had multiple runs of atrial fibrillation with high rates went all the way up into 180s. Suspicion case with Dr. Hines who requests that we start amiodarone. He requests 150 mg bolus and started her on 400 mg by mouth twice a day. Percocet patient be admitted observation. Patient be admitted to Dr. Figueroa. Cardiology and cardiac thoracic surgeon on consult. EKG interpretation: Ventricular rate a 81, normal sinus rhythm,. 146, QRS 82, Q TC 476. No KS prolongation, no QTC prolongation, T-wave inversions noted in 1 to and lateral precordial leads - Related Data Home Medications Medication Instructions Recorded Confirmed Cholecalciferol (Vitamin D3) 2,000 unit PO DAILY 03/27/19 04/30/19 [Vitamin D3] Citalopram Hydrobromide [CeleXA] 40 mg PO QAM 03/27/19 04/30/19 Ferrous Sulfate [Iron] 325 mg PO BID 03/27/19 04/30/19 Levothyroxine Sodium [Synthroid] 125 mcg PO QAM 03/27/19 04/30/19 Previous Rx's Medication Instructions Recorded Acetaminophen Tab [Tylenol] 1,000 mg PO Q6HR PRN #120 tab 05/05/19 Aspirin 325 tab PO DAILY #30 tab 05/05/19 Atorvastatin [Lipitor] 40 mg PO HS #30 tab 05/05/19 Clopidogrel [Plavix] 75 mg PO DAILY #30 tab 05/05/19 Furosemide [Lasix] 20 mg PO DAILY #7 tab 05/05/19 Lisinopril [Zestril] 2.5 mg PO Q24H #30 tab 05/05/19 Metoprolol Tartrate [Lopressor] 25 mg PO BID #60 tab 05/05/19 Pantoprazole [Protonix] 40 mg PO AC-BRKFST #30 tablet. 05/05/19 Sennosides-Docusate Sodium 2 each PO HS PRN #14 tab 05/05/19 [Senokot-S] Allergies Allergy/AdvReac Type Severity Reaction Status Date / Time Iodinated Contrast- Oral and Allergy Severe Vomiting/ra Verified 05/08/19 01:38 IV Dye sh/itching latex Allergy Itching/queta Verified 05/08/19 01:38 h adhesive tape Allergy Itching/queta Uncoded 05/08/19 01:38 h Review of Systems ROS Statement: Those systems with pertinent positive or pertinent negative responses have been documented in the HPI. ROS Other: All systems not noted in ROS Statement are negative. Past Medical History Past Medical History: Chest Pain / Angina, Hypertension, Liver Disease, Thyroid Disorder Additional Past Medical History / Comment(s): SOB, palpitations, heart murmur, enlarged/fatty liver, anemia History of Any Multi-Drug Resistant Organisms: None Reported Past Surgical History: Appendectomy, Cholecystectomy, Heart Catheterization, Orthopedic Surgery, Tubal Ligation Additional Past Surgical History / Comment(s): TREY,thyroidectomy, bunionectomy rt foot, mitral valve replacement 04/30 Past Anesthesia/Blood Transfusion Reactions: Postoperative Nausea & Vomiting (PONV) Additional Past Anesthesia/Blood Transfusion Reaction / Comment(s): no hx blood transfusion Past Psychological History: Depression Smoking Status: Former smoker Past Alcohol Use History: None Reported Past Drug Use History: None Reported - Past Family History Mother Family Medical History: No Reported History General Exam Limitations: no limitations Course Vital Signs 05/08/19 05/08/19 05/08/19 01:33 02:53 03:43 Temperature 99.0 F 98.2 F Pulse Rate 81 89 81 Respiratory 18 19 18 Rate Blood Pressure 99/65 110/68 118/59 O2 Sat by Pulse 95 98 96 Oximetry 05/08/19 05/08/19 05/08/19 04:02 04:05 04:21 Temperature Pulse Rate 154 H 106 H 194 H Respiratory 18 18 Rate Blood Pressure 89/74 114/66 O2 Sat by Pulse 98 97 Oximetry 05/08/19 04:22 Temperature Pulse Rate 65 Respiratory Rate Blood Pressure O2 Sat by Pulse Oximetry Medical Decision Making - Lab Data Result diagrams: 05/08/19 03:08 05/08/19 02:08 Lab Results 05/08/19 05/08/19 05/08/19 Range/Units 02:08 02:08 02:08 WBC (3.8-10.6) k/uL RBC (3.80-5.40) m/uL Hgb (11.4-16.0) gm/dL Hct (34.0-46.0) % MCV (80.0-100.0) fL MCH (25.0-35.0) pg MCHC (31.0-37.0) g/dL RDW (11.5-15.5) % Plt Count (150-450) k/uL Neutrophils % % Lymphocytes % % Monocytes % % Eosinophils % % Basophils % % Neutrophils # (1.3-7.7) k/uL Lymphocytes # (1.0-4.8) k/uL Monocytes # (0-1.0) k/uL Eosinophils # (0-0.7) k/uL Basophils # (0-0.2) k/uL Manual Slide Review Hypochromasia Anisocytosis Anisocytosis (manual) PT (9.0-12.0) sec INR (<1.2) APTT (22.0-30.0) sec Sodium 137 (137-145) mmol/L Potassium 4.5 (3.5-5.1) mmol/L Chloride 106 (98-107) mmol/L Carbon Dioxide 23 (22-30) mmol/L Anion Gap 8 mmol/L BUN 17 (7-17) mg/dL Creatinine 0.82 (0.52-1.04) mg/dL Est GFR (CKD-EPI)AfAm >90 (>60 ml/min/1.73 sqM) Est GFR (CKD-EPI)NonAf 78 (>60 ml/min/1.73 sqM) Glucose 108 H (74-99) mg/dL Calcium 8.5 (8.4-10.2) mg/dL Magnesium 1.8 (1.6-2.3) mg/dL Total Bilirubin 0.9 (0.2-1.3) mg/dL AST 49 H (14-36) U/L ALT 26 (9-52) U/L Alkaline Phosphatase 68 (38-126) U/L Troponin I 0.467 H* (0.000-0.034) ng/mL Total Protein 7.2 (6.3-8.2) g/dL Albumin 3.4 L (3.5-5.0) g/dL TSH 11.100 H (0.465-4.680) mIU/L Urine Color Yellow Urine Appearance Clear (Clear) Urine pH 5.5 (5.0-8.0) Ur Specific [place] 1.027 (1.001-1.035) Urine Protein Trace H (Negative) Urine Glucose (UA) Negative (Negative) Urine Ketones Negative (Negative) Urine Blood Negative (Negative) Urine Nitrite Negative (Negative) Urine Bilirubin Negative (Negative) Urine Urobilinogen 6.0 (<2.0) mg/dL Ur Leukocyte Esterase Negative (Negative) Urine RBC <1 (0-5) /hpf Urine WBC 3 (0-5) /hpf Ur Squamous Epith Cells 3 (0-4) /hpf Urine Bacteria Rare H (None) /hpf Hyaline Casts 3 H (0-2) /lpf Urine Mucus Rare H (None) /hpf 05/08/19 05/08/19 Range/Units 03:08 03:20 WBC 4.6 (3.8-10.6) k/uL RBC 3.31 L (3.80-5.40) m/uL Hgb 9.3 L (11.4-16.0) gm/dL Hct 28.8 L (34.0-46.0) % MCV 86.9 (80.0-100.0) fL MCH 28.0 (25.0-35.0) pg MCHC 32.2 (31.0-37.0) g/dL RDW 17.2 H (11.5-15.5) % Plt Count 160 (150-450) k/uL Neutrophils % 64 % Lymphocytes % 25 % Monocytes % 6 % Eosinophils % 2 % Basophils % 1 % Neutrophils # 3.0 (1.3-7.7) k/uL Lymphocytes # 1.1 (1.0-4.8) k/uL Monocytes # 0.3 (0-1.0) k/uL Eosinophils # 0.1 (0-0.7) k/uL Basophils # 0.0 (0-0.2) k/uL Manual Slide Review Performed Hypochromasia Slight Anisocytosis Slight Anisocytosis (manual) Present PT 11.6 (9.0-12.0) sec INR 1.1 (<1.2) APTT 25.6 (22.0-30.0) sec Sodium (137-145) mmol/L Potassium (3.5-5.1) mmol/L Chloride (98-107) mmol/L Carbon Dioxide (22-30) mmol/L Anion Gap mmol/L BUN (7-17) mg/dL Creatinine (0.52-1.04) mg/dL Est GFR (CKD-EPI)AfAm (>60 ml/min/1.73 sqM) Est GFR (CKD-EPI)NonAf (>60 ml/min/1.73 sqM) Glucose (74-99) mg/dL Calcium (8.4-10.2) mg/dL Magnesium (1.6-2.3) mg/dL Total Bilirubin (0.2-1.3) mg/dL AST (14-36) U/L ALT (9-52) U/L Alkaline Phosphatase (38-126) U/L Troponin I (0.000-0.034) ng/mL Total Protein (6.3-8.2) g/dL Albumin (3.5-5.0) g/dL TSH (0.465-4.680) mIU/L Urine Color Urine Appearance (Clear) Urine pH (5.0-8.0) Ur Specific [place] (1.001-1.035) Urine Protein (Negative) Urine Glucose (UA) (Negative) Urine Ketones (Negative) Urine Blood (Negative) Urine Nitrite (Negative) Urine Bilirubin (Negative) Urine Urobilinogen (<2.0) mg/dL Ur Leukocyte Esterase (Negative) Urine RBC (0-5) /hpf Urine WBC (0-5) /hpf Ur Squamous Epith Cells (0-4) /hpf Urine Bacteria (None) /hpf Hyaline Casts (0-2) /lpf Urine Mucus (None) /hpf Disposition Clinical Impression: Palpitations Disposition: ADMITTED IP TO THIS [facility] Condition: Fair Referrals: Odilon Hall MD [Primary Care Provider] - 1-2 days Decision Time: 04:25
[2019-05-08 02:37] LABS: ALT 26 U/L (9-52); AST 49 U/L (14-36); African American GFR (CKD) >90 (>60 ml/min/1.73 sqM); Albumin 3.4 g/dL (3.5-5.0); Alkaline Phosphatase 68 U/L (38-126); Anion Gap 8 mmol/L; Blood Urea Nitrogen 17 mg/dL (7-17); Calcium 8.5 mg/dL (8.4-10.2); Carbon Dioxide 23 mmol/L (22-30); Chloride 106 mmol/L (98-107); Glucose 108 mg/dL (74-99); Magnesium 1.8 mg/dL (1.6-2.3); Potassium 4.5 mmol/L (3.5-5.1); Sodium 137 mmol/L (137-145); Total Bilirubin 0.9 mg/dL (0.2-1.3); Total Protein 7.2 g/dL (6.3-8.2)
--- NOTE | 2019-05-08 02:43 | XR ---
EXAM: XR Chest, 2 Views CLINICAL HISTORY: ITS.REASON XR Reason: dysrhythmia TECHNIQUE: Frontal and lateral views of the chest. COMPARISON: 05/05/2019 FINDINGS: Lungs: Subsegmental changes at the lung bases are slightly increased. Pleural space: Left pleural effusion has increased from the previous exam. No pneumothorax. Heart: The cardiac silhouette is stable and within normal limits. Evidence of aortic valve replacement and atrophic larger devices noted. Mediastinum: The mediastinal contours are not significantly altered. The trachea is midline. Bones/joints: Intact sternotomy wires. IMPRESSION: Left pleural effusion appears slightly increased from the previous exam. Bibasilar subsegmental changes are slightly increased and may represent atelectasis or asymmetric edema. Subtle infection is difficult to exclude. Please correlate clinically.
[2019-05-08 03:22] LABS: Anisocytosis Slight; Basophils % (A) 1 %; Eosinophils # (A) 0.1 k/uL (0-0.7); Eosinophils % (A) 2 %; HCT 28.8 % (34.0-46.0); HGB 9.3 gm/dL (11.4-16.0); Hypochromasia Slight; Lymphocytes # (A) 1.1 k/uL (1.0-4.8); Lymphocytes % (A) 25 %; MCHC 32.2 g/dL (31.0-37.0); MCV 86.9 fL (80.0-100.0); Mean Platelet Volume 7.8; Monocytes # (A) 0.3 k/uL (0-1.0); Monocytes % (A) 6 %; Neutrophils % (A) 64 %; Platelet Count 160 k/uL (150-450); RBC 3.31 m/uL (3.80-5.40); RDW 17.2 % (11.5-15.5); WBC 4.6 k/uL (3.8-10.6)
[2019-05-08 03:30] LABS: Appearance,Urine Clear (Clear); Bacteria,Urine Rare /hpf; Bilirubin,Urine Negative (Negative); Blood,Urine Negative (Negative); Color,Urine Yellow; Glucose,Urine (UA) Negative (Negative); Hyaline Casts,Urine 3 /lpf (0-2); Ketones,Urine Negative (Negative); Leukocyte Esterase,Urine Negative (Negative); Mucus,Urine Rare /hpf; Nitrite,Urine Negative (Negative); PH, Urine 5.5 (5.0-8.0); Protein,Urine Trace (Negative); RBC,Urine <1 /hpf (0-5); Specific Gravity,Urine 1.027 (1.001-1.035); Squamous Epithelial Cell,Urine 3 /hpf (0-4)
[2019-05-08 03:56] LABS: Anisocytosis (M) Present
[2019-05-08 03:58] LABS: INR 1.1 (<1.2); Partial Thromboplastin Time 25.6 sec (22.0-30.0); Prothrombin Time 11.6 sec (9.0-12.0)
[2019-05-08] MEDS ORDERED: NALOXONE 0.4 MG/ML 1 ML VIAL IV PRN (04:26)
[2019-05-08] MEDS ORDERED: ACETAMINOPHEN TAB 500 MG TAB PO PRN (04:27)
[2019-05-08] MEDS ORDERED: DEXTROSE 5% IN WATER 100 ML with AMIODARONE 150 MG IV ONE (04:30)
[2019-05-08] MEDS: SODIUM CHLORIDE 0.9% 1,000 ML IV SCH (05:01)
[2019-05-08] MEDS ORDERED: predniSONE 50 MG TAB PO ONE ×3 (08:25)
[2019-05-08] MEDS ORDERED: diphenhydrAMINE 50 MG CAP PO ONE (08:25)
[2019-05-08] MEDS ORDERED: RX INFO: IV CONTRAST WAS GIVEN 1 EACH MISC MISCELLANE PRN (08:27)
[2019-05-08] MEDS ORDERED: CLOPIDOGREL 75 MG TAB PO SCH (09:00)
[2019-05-08] MEDS ORDERED: METOPROLOL TARTRATE 25 MG TAB PO SCH (09:00)
[2019-05-08] MEDS ORDERED: ASPIRIN 325 MG TAB PO SCH (09:00)
[2019-05-08] MEDS ORDERED: FAMOTIDINE 20 MG/2 ML VIAL IV ONE (09:18)
[2019-05-08] MEDS ORDERED: methylPREDNISolone SOD SUCCI 125 MG/2 ML VIAL IV ONE (09:18)
[2019-05-08] MEDS ORDERED: diphenhydrAMINE 50 MG/ML 1 ML VIAL IVP ONE (09:18)
[2019-05-08] MEDS: LEVOTHYROXINE 125 MCG TAB PO SCH (09:27)
[2019-05-08] MEDS: AMIODARONE 200 MG TAB PO SCH ×2 (09:27→20:19)
[2019-05-08] MEDS: METOPROLOL TARTRATE 25 MG TAB PO SCH ×3 (09:28→22:12)
[2019-05-08] MEDS: APIXABAN 5 MG TAB PO SCH ×2 (09:28→20:20)
[2019-05-08] MEDS: PANTOPRAZOLE 40 MG TABLET PO SCH (09:28)
[2019-05-08] MEDS: ASPIRIN 81 MG PO SCH (09:28)
--- NOTE | 2019-05-08 10:04 | P.GSCN ---
History of Present Illness Consult date: 05/08/19 Reason for Consult: Known to us, recent aortic valve replacement Requesting physician: Torres Arevalo History of present illness: This is a 4-year-old active female patient who follows on an outpatient basis with Dr. Hall as well as Dr. Montgomery from [facility]. She has a previous medical history of aortic valve stenosis with bioprosthetic aortic valve replacement on 04/30/2019, hypertension, hypothyroid, chronic anemia, previous tobacco dependence with FEV1 64% of predicted, GERD, vitamin D deficiency, fatty liver, morbid obesity, and depression. She was discharged to home with home care on 05/05/2019 after her aortic valve replacement and was scheduled to follow-up in the cardiothoracic surgery office on 05/09/2019. Last night she began to experience palpitations associated with diaphoresis and lightheadedness. She also complained of feeling like she had a gas bubble stuck in her chest just to the right of her mid sternal incision which she experiences every time she swallows liquids or food. She presented to [facility] emergency room and was found to be in atrial fibrillation with rapid ventricular response. She does state that she had been compliant with all of her medica tions upon discharge including her beta nadine. She was also noted to have a TSH of 11.1, preoperatively she was 6.57 with a T4 of 1.09. Dr. Hines from cardiothoracic surgery was called by the emergency room physicians, orders were given for IV bolus amiodarone as well as oral amiodarone. She will stay for 24 hours for observation under the care of Dr. Figueroa. Cardiothoracic surgery was consulted for continued recommendations. Review of Systems Review of systems was completed was negative except as noted. - Cardiovascular Reports as per HPI, Reports lightheadedness, Reports palpitations, Reports rapid heart beat Past Medical History Past Medical History: Chest Pain / Angina, Hypertension, Liver Disease, Thyroid Disorder Additional Past Medical History / Comment(s): SOB, palpitations, enlarged/fatty liver, anemia. Aortic stenosis History of Any Multi-Drug Resistant Organisms: None Reported Past Surgical History: Appendectomy, Cholecystectomy, Heart Catheterization, Orthopedic Surgery, Tubal Ligation Additional Past Surgical History / Comment(s): TREY,thyroidectomy, bunionectomy rt foot, aortic valve replacement 04/30 Past Anesthesia/Blood Transfusion Reactions: Postoperative Nausea & Vomiting (PONV) Additional Past Anesthesia/Blood Transfusion Reaction / Comm: no hx blood transfusion Past Psychological History: Depression Smoking Status: Former smoker Past Alcohol Use History: None Reported Past Drug Use History: None Reported - Past Family History Mother Family Medical History: No Reported History Father Family Medical History: Cancer, Congestive Heart Failure (CHF), COPD Additional Family Medical History / Comment(s): colon cancer Medications and Allergies Home Medications Medication Instructions Recorded Confirmed Type Cholecalciferol (Vitamin D3) 2,000 unit PO DAILY 03/27/19 05/08/19 History [Vitamin D3] Citalopram Hydrobromide [CeleXA] 40 mg PO QAM 03/27/19 05/08/19 History Ferrous Sulfate [Iron] 325 mg PO BID 03/27/19 05/08/19 History Levothyroxine Sodium [Synthroid] 125 mcg PO QAM 03/27/19 05/08/19 History Acetaminophen Tab [Tylenol] 1,000 mg PO Q6HR PRN #120 tab 05/05/19 05/08/19 Rx Aspirin 325 tab PO DAILY #30 tab 05/05/19 05/08/19 Rx Atorvastatin [Lipitor] 40 mg PO HS #30 tab 05/05/19 05/08/19 Rx Clopidogrel [Plavix] 75 mg PO DAILY #30 tab 05/05/19 05/08/19 Rx Furosemide [Lasix] 20 mg PO DAILY #7 tab 05/05/19 05/08/19 Rx Pantoprazole [Protonix] 40 mg PO AC-BRKFST #30 tablet.dr 05/05/19 05/08/19 Rx Metoprolol Tartrate [Lopressor] 25 mg PO BID 05/08/19 05/08/19 History Sennosides-Docusate Sodium 2 tab PO HS PRN 05/08/19 05/08/19 History [Senokot-S] Allergies Allergy/AdvReac Type Severity Reaction Status Date / Time Iodinated Contrast- Oral and Allergy Severe Vomiting/ra Verified 05/08/19 07:25 IV Dye sh/itching latex Allergy Itching/queta Verified 05/08/19 07:25 h adhesive tape Allergy Itching/queta Uncoded 05/08/19 07:25 h Surgical - Exam Vital Signs Temp Pulse Resp BP Pulse Ox 99.0 F 81 18 99/65 95 05/08/19 01:33 05/08/19 01:33 05/08/19 01:33 05/08/19 01:33 05/08/19 01:33 - General well developed, well nourished, no distress, no pain, obese - Eyes PERRL, normal ocular movement - ENT no hearing loss - Neck no masses, no bruits, trachea midline - Respiratory Lungs sounds diminished bilaterally. Respirations even, nonlabored. Currently on room air with oxygen saturation 98%. - Cardiovascular S1, S2 present. Regular and irregular rhythm, patient's rhythm is going back and forth between normal sinus rhythm and atrial fibrillation with heart rate in the 140s. Sternum stable. Palpable peripheral pulses bilaterally. No edema present. No calf pain or tenderness noted. - Abdomen Abdomen: soft, non tender, bowel sounds - Genitourinary Deferred - Rectum Deferred - Integumentary Anterior chest incision well approximated and covered with Dermabond. Mediastinal chest tube site with scant serous drainage, covered with 4 x 4. Right chest tube site open to air, no drainage. no rash, no growths - Neurologic normal coordination, normal sensation - Musculoskeletal normal gait, normal posture - Psychiatric oriented to time, oriented to person, oriented to place, speech is normal, memory intact Results - Labs 05/08/19 03:08 05/08/19 02:08 Abnormal Lab Results - Last 24 Hours (Table) 05/08/19 05/08/19 05/08/19 Range/Units 02:08 02:08 02:08 RBC (3.80-5.40) m/uL Hgb (11.4-16.0) gm/dL Hct (34.0-46.0) % RDW (11.5-15.5) % Glucose 108 H (74-99) mg/dL AST 49 H (14-36) U/L Troponin I 0.467 H* (0.000-0.034) ng/mL Albumin 3.4 L (3.5-5.0) g/dL TSH 11.100 H (0.465-4.680) mIU/L Urine Protein Trace H (Negative) Urine Bacteria Rare H (None) /hpf Hyaline Casts 3 H (0-2) /lpf Urine Mucus Rare H (None) /hpf 05/08/19 Range/Units 03:08 RBC 3.31 L (3.80-5.40) m/uL Hgb 9.3 L (11.4-16.0) gm/dL Hct 28.8 L (34.0-46.0) % RDW 17.2 H (11.5-15.5) % Glucose (74-99) mg/dL AST (14-36) U/L Troponin I (0.000-0.034) ng/mL Albumin (3.5-5.0) g/dL TSH (0.465-4.680) mIU/L Urine Protein (Negative) Urine Bacteria (None) /hpf Hyaline Casts (0-2) /lpf Urine Mucus (None) /hpf Diabetes panel 05/08/19 Range/Units 02:08 Sodium 137 (137-145) mmol/L Potassium 4.5 (3.5-5.1) mmol/L Chloride 106 (98-107) mmol/L Carbon Dioxide 23 (22-30) mmol/L BUN 17 (7-17) mg/dL Creatinine 0.82 (0.52-1.04) mg/dL Glucose 108 H (74-99) mg/dL Calcium 8.5 (8.4-10.2) mg/dL AST 49 H (14-36) U/L ALT 26 (9-52) U/L Alkaline Phosphatase 68 (38-126) U/L Total Protein 7.2 (6.3-8.2) g/dL Albumin 3.4 L (3.5-5.0) g/dL Thyroid panel 05/08/19 Range/Units 02:08 TSH 11.100 H (0.465-4.680) mIU/L Calcium panel 05/08/19 Range/Units 02:08 Calcium 8.5 (8.4-10.2) mg/dL Albumin 3.4 L (3.5-5.0) g/dL Pituitary panel 05/08/19 Range/Units 02:08 Sodium 137 (137-145) mmol/L Potassium 4.5 (3.5-5.1) mmol/L Chloride 106 (98-107) mmol/L Carbon Dioxide 23 (22-30) mmol/L BUN 17 (7-17) mg/dL Creatinine 0.82 (0.52-1.04) mg/dL Glucose 108 H (74-99) mg/dL Calcium 8.5 (8.4-10.2) mg/dL TSH 11.100 H (0.465-4.680) mIU/L Adrenal panel 05/08/19 Range/Units 02:08 Sodium 137 (137-145) mmol/L Potassium 4.5 (3.5-5.1) mmol/L Chloride 106 (98-107) mmol/L Carbon Dioxide 23 (22-30) mmol/L BUN 17 (7-17) mg/dL Creatinine 0.82 (0.52-1.04) mg/dL Glucose 108 H (74-99) mg/dL Calcium 8.5 (8.4-10.2) mg/dL Total Bilirubin 0.9 (0.2-1.3) mg/dL AST 49 H (14-36) U/L ALT 26 (9-52) U/L Alkaline Phosphatase 68 (38-126) U/L Total Protein 7.2 (6.3-8.2) g/dL Albumin 3.4 L (3.5-5.0) g/dL - Imaging Chest x-ray: report reviewed, image reviewed EKG: image reviewed Assessment and Plan Assessment: 1. Postoperative A. fib with RVR, status post clip ligation of the left atrial appendage 2. Aortic stenosis, status post bioprosthetic aortic valve replacement 04/30/2019 3. History of hypertension 4. Hypothyroid, current TSH 11.1, preoperative TSH 6.57 with T4 1.09 5. Chronic anemia 6. Previous tobacco dependence 7. GERD 8. Vitamin D deficiency 9. Fatty liver 10. Morbid obesity 11. Depression Plan: The patient was seen and examined at the bedside in the emergency room. Chart/diagnostics were reviewed. Case was discussed in detail with Dr. Hines. At this time we will increase her Lopressor to 25 mg every 8 hours, continue oral amiodarone 400 mg twice daily, add Eliquis for anticoagulation, continue baby aspirin. Computed tomography scan of the chest was ordered to evaluate the pain in her chest. Free T4 level was admitted to this morning's labs, thyroid medication adjustment per primary care service. Incentive spirometry ordered and encouraged. Increase activity, ambulate as tolerated, PT/OT ordered. Hopefully will be able to get atrial fibrillation under control and discharge patient to home with home care within 24 hours. Patient will follow up with cardiothoracic surgery within 48 hours of discharge. More recommendations to follow. Thank you for this consult. We look forward to working with you in the care of your patient. Time with Patient: Greater than 30
[2019-05-08] MEDS ORDERED: SENNOSIDES-DOCUSATE SODIUM 1 EACH TAB PO PRN (10:52)
[2019-05-08 10:59] VITALS: BMI 38.1
[2019-05-08] MEDS: CITALOPRAM HYDROBROMIDE 20 MG TAB PO SCH (15:04)
--- NOTE | 2019-05-08 16:06 | CT ---
EXAMINATION TYPE: CT chest w con DATE OF EXAM: 05/08/2019 COMPARISON: 03/27/2019 HISTORY: Aortic valve replacement 1 week ago. Mid chest pain and pressure. CT DLP: 422.9 mGycm, Automated exposure control for dose reduction was used. CONTRAST: Performed injected with 100 mL of Isovue 300. TECHNIQUE: Axial images were obtained at 5 mm thick sections. Reconstructed images are reviewed on [employer] computer in the coronal plane. FINDINGS: Thyroid is not visualized on this exam. Recent sternotomy is evident. Sternotomy wires are present through the region of the sternum. Small bilateral pleural fluid collections are evident. Adjacent compressive atelectasis is present. Small amount of fluid is adjacent to the ascending thoracic aorta. No enlarged mediastinal or hilar adenopathy is evident. The ascending aorta diameter at the level o f the main pulmonary artery is 3.0 cm. The main pulmonary artery diameter at the bifurcation is 2.[address] sections are obtained through the upper abdomen. Abdomen is essentially unremarkable. Sple en is somewhat prominent within the [id number]. Gallbladder is been surgically removed. Pancreas a ppears atrophic. IMPRESSIONS: 1. Small amount of fluid adjacent to the ascending thoracic aorta in the mediastinum. This could be p ostsurgical in nature. No post surgical CT images are available for comparison. 2. Small bilateral pleural effusions with adjacent compressive atelectasis.
[2019-05-08] MEDS: FERROUS SULFATE 325 MG TAB PO SCH (20:19)
--- NOTE | 2019-05-08 20:47 | P.HPIM ---
History of Present Illness H&P Date: 05/08/19 Chief Complaint: Heart racing History of presenting complaint: This is a pleasant 58-year-old patient of .. Chronic stable medical conditions include hypertension, hypothyroid, fatty liver, depression. Patient just about a week ago underwent aortic valve replacement. And was discharged from the hospital on May 05. Patient also had acute postop blood loss anemia as expected from surgery and some dilutional thrombocytopenia. When patient left she was doing much better. She was ambulating. Tolerating a diet. Breathing was stable. Patient now presents with episodes of heart racing. Some shortness of breath. Some dizziness. Patient is found to be in paroxysmal atrial fibrillation episodes with rapid ventricular rate. She was admitted for the same Review of systems: GEN.: Tired EYES: None HEENT: None NECK: None RESPIRATORY: Some shortness of breath CARDIOVASCULAR: As above GASTROINTESTINAL: None GENITOURINARY: None MUSCULOSKELETAL: None LYMPHATICS: None HEMATOLOGICAL: None PSYCHIATRY: None NEUROLOGICAL: None Social history: Lives alone. Smokes half a pack and about 40 years stopped in 2017. No alcohol. Family history: Reviewed, unremarkable Physical examination: VITAL SIGNS: 98.2, heart rate up to 160, 19, 1 10 x 68, 98% room air GENERAL: BMI 35.5, propped up in bed,. EYES: Pupils equal. Conjunctiva normal. HEENT: External appearance of nose and ears normal, oral cavity grossly normal. NECK: JVD unable to assess; masses not palpable. HEART: First and second heart sounds are normal; minimal edema. LUNGS: Respiratory rate increased, decreased breath sounds. ABDOMEN: Soft, nontender, liver spleen not palpable, no masses palpable. PSYCH: Alert and oriented x3; mood and affect normal. NEUROLOGICAL: Cranial nerves grossly intact; no facial asymmetry, power and sensation grossly intact. LYMPHATICS: No lymph nodes palpable in the axilla and neck Investigations, reviewed in the clinical context: White count 4.6 hemoglobin 9.3 platelets 160 Potassium 4.5 Troponin 0.467 EKG tracing personally reviewed by me shows A. fib with rapid ventricular rate Chest x-ray film personally reviewed by me shows some fluffiness of the vasculature. Small pleural effusion Computed tomography scan of the chest-small pleural effusion Assessment: -Paroxysmal atrial fibrillation episodes symptomatic with a rapid ventricular rate -Aortic valve replacement with Simon bioprosthetic aortic valve with clip ligation of the left atrial appendage -Obesity BMI 35.5 -Essential hypertension -Hepatic steatosis -Hypothyroidism -Depression otherwise specified -Acute postop blood loss anemia as expected from surgery -Troponin leak from rapid heart rate. No clinical evidence of acute coronary syndrome Plan: Patient was admitted. Consultation was made to both cardiology and cardiothoracic surgery. Lopressor was increased. Amiodarone was added. Care was discussed with the patient. Lovenox for DVT prophylaxis. Past Medical History Past Medical History: Chest Pain / Angina, Hypertension, Liver Disease, Thyroid Disorder Additional Past Medical History / Comment(s): SOB, palpitations, enlarged/fatty liver, anemia. Aortic stenosis History of Any Multi-Drug Resistant Organisms: None Reported Past Surgical History: Appendectomy, Cholecystectomy, Heart Catheterization, Orthopedic Surgery, Tubal Ligation Additional Past Surgical History / Comment(s): TREY,thyroidectomy, bunionectomy rt foot, aortic valve replacement 04/30 Past Anesthesia/Blood Transfusion Reactions: Postoperative Nausea & Vomiting (PONV) Additional Past Anesthesia/Blood Transfusion Reaction / Comment(s): no hx blood transfusion Smoking Status: Former smoker - Past Family History Mother Family Medical History: No Reported History Father Family Medical History: Cancer, Congestive Heart Failure (CHF), COPD Additional Family Medical History / Comment(s): colon cancer Medications and Allergies Home Medications Medication Instructions Recorded Confirmed Type Cholecalciferol (Vitamin D3) 2,000 unit PO DAILY 03/27/19 05/08/19 History [Vitamin D3] Citalopram Hydrobromide [CeleXA] 40 mg PO QAM 03/27/19 05/08/19 History Ferrous Sulfate [Iron] 325 mg PO BID 03/27/19 05/08/19 History Levothyroxine Sodium [Synthroid] 125 mcg PO QAM 03/27/19 05/08/19 History Acetaminophen Tab [Tylenol] 1,000 mg PO Q6HR PRN #120 tab 05/05/19 05/08/19 Rx Aspirin 325 tab PO DAILY #30 tab 05/05/19 05/08/19 Rx Atorvastatin [Lipitor] 40 mg PO HS #30 tab 05/05/19 05/08/19 Rx Clopidogrel [Plavix] 75 mg PO DAILY #30 tab 05/05/19 05/08/19 Rx Furosemide [Lasix] 20 mg PO DAILY #7 tab 05/05/19 05/08/19 Rx Pantoprazole [Protonix] 40 mg PO AC-BRKFST #30 tablet. 05/05/19 05/08/19 Rx Metoprolol Tartrate [Lopressor] 25 mg PO BID 05/08/19 05/08/19 History Sennosides-Docusate Sodium 2 tab PO HS PRN 05/08/19 05/08/19 History [Senokot-S] Allergies Allergy/AdvReac Type Severity Reaction Status Date / Time Iodinated Contrast- Oral and Allergy Severe Vomiting/ra Verified 05/08/19 07:25 IV Dye sh/itching latex Allergy Itching/queta Verified 05/08/19 07:25 h adhesive tape Allergy Itching/queta Uncoded 05/08/19 07:25 h Physical Exam Vitals: Vital Signs Temp Pulse Pulse Resp BP BP Pulse Ox 05/08/19 16:00 97.6 F 69 18 138/66 94 L 05/08/19 11:16 98.4 F 67 18 133/64 93 L 05/08/19 09:10 117 H 20 05/08/19 09:00 98.3 F 89 20 113/68 96 05/08/19 08:01 108 H 20 102/57 96 05/08/19 07:02 106 H 17 111/68 97 05/08/19 06:18 98.3 F 82 20 115/83 98 05/08/19 06:08 99 F 117 H 18 122/78 99 05/08/19 04:22 65 05/08/19 04:21 194 H 05/08/19 04:05 106 H 18 114/66 97 05/08/19 04:02 154 H 18 89/74 98 05/08/19 03:43 81 18 118/59 96 05/08/19 02:53 98.2 F 89 19 110/68 98 05/08/19 01:33 99.0 F 81 18 99/65 95 Intake and Output 05/08/19 05/08/19 05/08/19 06:59 14:59 22:59 Intake Total 240 Balance 240 Intake: Oral 240 Other: # Voids 1 Weight 99.79 kg Results CBC & Chem 7: 05/08/19 03:08 05/08/19 02:08 Labs: Abnormal Lab Results - Last 24 Hours (Table) 05/08/19 05/08/19 05/08/19 Range/Units 02:08 02:08 02:08 RBC (3.80-5.40) m/uL Hgb (11.4-16.0) gm/dL Hct (34.0-46.0) % RDW (11.5-15.5) % Glucose 108 H (74-99) mg/dL AST 49 H (14-36) U/L Troponin I 0.467 H* (0.000-0.034) ng/mL Albumin 3.4 L (3.5-5.0) g/dL TSH 11.100 H (0.465-4.680) mIU/L Urine Protein Trace H (Negative) Urine Bacteria Rare H (None) /hpf Hyaline Casts 3 H (0-2) /lpf Urine Mucus Rare H (None) /hpf 05/08/19 Range/Units 03:08 RBC 3.31 L (3.80-5.40) m/uL Hgb 9.3 L (11.4-16.0) gm/dL Hct 28.8 L (34.0-46.0) % RDW 17.2 H (11.5-15.5) % Glucose (74-99) mg/dL AST (14-36) U/L Troponin I (0.000-0.034) ng/mL Albumin (3.5-5.0) g/dL TSH (0.465-4.680) mIU/L Urine Protein (Negative) Urine Bacteria (None) /hpf Hyaline Casts (0-2) /lpf Urine Mucus (None) /hpf Thrombosis Risk Factor Assmnt - Choose All That Apply Any of the Below Risk Factors Present?: Yes Each Factor Represents 1 point: Age 41-60 years, Obesity (BMI >25) Other Risk Factors: No Other congenital or acquired thrombophilia - If yes, enter type in comment: No Thrombosis Risk Factor Assessment Total Risk Factor Score: 2 Thrombosis Risk Factor Assessment Level: Low Risk
[2019-05-08] MEDS ORDERED: ATORVASTATIN 40 MG TAB PO SCH (21:00)
[2019-05-09] MEDS: SODIUM CHLORIDE 0.9% 1,000 ML IV SCH (03:30)
[2019-05-09] MEDS: LEVOTHYROXINE 125 MCG TAB PO SCH (05:31)
[2019-05-09] MEDS: PANTOPRAZOLE 40 MG TABLET PO SCH (05:31)
[2019-05-09] MEDS: FERROUS SULFATE 325 MG TAB PO SCH (08:40)
[2019-05-09] MEDS: ASPIRIN 81 MG PO SCH (08:40)
[2019-05-09] MEDS: CITALOPRAM HYDROBROMIDE 20 MG TAB PO SCH (08:40)
[2019-05-09] MEDS: APIXABAN 5 MG TAB PO SCH (08:40)
[2019-05-09] MEDS: AMIODARONE 200 MG TAB PO SCH (08:40)
--- NOTE | 2019-05-09 08:40 | P.CRDCN ---
History of Present Illness Consult date: 05/09/19 Requesting physician: Rajesh Figueroa Consult reason: atrial fibrillation Chief complaint: Palpitations History of present illness: This is a pleasant 58-year-old female who follows with Dr. Don Montgomery in the office, she has history of aortic valve stenosis with bioprosthetic aortic valve replacement on 04/30/2019, hypertension, hyperlipidemia, Graves' disease, hypothyroidism, chronic anemia, prior nicotine dependence, GERD, vitamin D deficiency, morbid obesity, and depression. She was discharged home from the hospital on May 05. She states that she was experiencing palpitations which initially initially started as a rumbling feeling in her neck, then developed into a fluttering sensation in her chest. She was quite diaphoretic and lightheaded. For this reason she presented to the hospital. Her EKG on presentation here showed atrial fibrillation with a rapid ventricular response. On review of her hospitalization at the time of her surgery, she did have some atrial fibrillation as well. Patient was given a bolus and drip of amiodarone on presentation here and has been started on oral amiodarone. She was also initiated on Eliquis 5 mg one tablet by mouth twice a day. At the time of my examination this morning the patient is in normal sinus rhythm and feels good she has no complaints. I pressure 142/70 with a heart rate in the 80s, 97% on room air. White blood cell count is normal, hemoglobin 9.3, platelet count 160. Sodium 137, potassium 4.5, BUN 17 and creatinine 0.8. Troponin 0.467. TSH 11.1 free T4 1 0.4. Past Medical History Past Medical History: Chest Pain / Angina, Hypertension, Liver Disease, Thyroid Disorder Additional Past Medical History / Comment(s): SOB, palpitations, enlarged/fatty liver, anemia. Aortic stenosis History of Any Multi-Drug Resistant Organisms: None Reported Past Surgical History: Appendectomy, Cholecystectomy, Heart Catheterization, Orthopedic Surgery, Tubal Ligation Additional Past Surgical History / Comment(s): TREY,thyroidectomy, bunionectomy rt foot, aortic valve replacement 04/30 Past Anesthesia/Blood Transfusion Reactions: Postoperative Nausea & Vomiting (PONV) Additional Past Anesthesia/Blood Transfusion Reaction / Comment(s): no hx blood transfusion Past Psychological History: Depression Smoking Status: Former smoker Past Alcohol Use History: None Reported Past Drug Use History: None Reported - Past Family History Mother Family Medical History: No Reported History Father Family Medical History: Cancer, Congestive Heart Failure (CHF), COPD Additional Family Medical History / Comment(s): colon cancer Medications and Allergies Home Medications Medication Instructions Recorded Confirmed Type Cholecalciferol (Vitamin D3) 2,000 unit PO DAILY 03/27/19 05/08/19 History [Vitamin D3] Citalopram Hydrobromide [CeleXA] 40 mg PO QAM 03/27/19 05/08/19 History Ferrous Sulfate [Iron] 325 mg PO BID 03/27/19 05/08/19 History Levothyroxine Sodium [Synthroid] 125 mcg PO QAM 03/27/19 05/08/19 History Acetaminophen Tab [Tylenol] 1,000 mg PO Q6HR PRN #120 tab 05/05/19 05/08/19 Rx Aspirin 325 tab PO DAILY #30 tab 05/05/19 05/08/19 Rx Atorvastatin [Lipitor] 40 mg PO HS #30 tab 05/05/19 05/08/19 Rx Clopidogrel [Plavix] 75 mg PO DAILY #30 tab 05/05/19 05/08/19 Rx Furosemide [Lasix] 20 mg PO DAILY #7 tab 05/05/19 05/08/19 Rx Pantoprazole [Protonix] 40 mg PO AC-BRKFST #30 tablet.dr 05/05/19 05/08/19 Rx Metoprolol Tartrate [Lopressor] 25 mg PO BID 05/08/19 05/08/19 History Sennosides-Docusate Sodium 2 tab PO HS PRN 05/08/19 05/08/19 History [Senokot-S] Allergies Allergy/AdvReac Type Severity Reaction Status Date / Time Iodinated Contrast- Oral and Allergy Severe Vomiting/ra Verified 05/08/19 07:25 IV Dye sh/itching latex Allergy Itching/queta Verified 05/08/19 07:25 h adhesive tape Allergy Itching/queta Uncoded 05/08/19 07:25 h Physical Exam Vitals: Vital Signs Temp Pulse Pulse Resp BP BP Pulse Ox 05/09/19 03:26 98 F 82 18 142/70 97 05/08/19 23:30 79 18 135/72 96 05/08/19 20:00 97.7 F 68 18 146/65 96 05/08/19 16:00 97.6 F 69 18 138/66 94 L 05/08/19 11:16 98.4 F 67 18 133/64 93 L 05/08/19 09:10 117 H 20 05/08/19 09:00 98.3 F 89 20 113/68 96 Intake and Output 05/08/19 05/09/19 05/09/19 22:59 06:59 14:59 Intake Total 240 240 Balance 240 240 Intake: Oral 240 240 Other: # Voids 1 1 PHYSICAL EXAMINATION: GENERAL: 58 y old female in no acute distress at the time of my examination HEENT: Head is atraumatic, normocephalic. Pupils equal, round. Sclera anicteric. Conjunctiva are clear. Mucous membranes of the mouth are moist. Neck is supple. There is no elevated jugular venous pressure.] bruit is heard. HEART EXAMINATION: Heart S1-S2 normal, sternum is stable, no redness noted around the incision area. Dermabond in place. CHEST EXAMINATION: Lungs are clear to with diminished air entry to bilateral bases . No chest wall tenderness is noted on palpation or with deep breathing. ABDOMEN: Soft, nontender. Bowel sounds are heard. No organomegaly noted. EXTREMITIES: 2+ peripheral pulses with no evidence of peripheral edema and no calf tenderness noted. NEUROLOGIC patient is awake, alert and oriented 3 . . Results 05/08/19 03:08 05/08/19 02:08 Current Medications Generic Name Dose Route Start Last Admin Trade Name Freq PRN Reason Stop Dose Admin Acetaminophen 1,000 mg 05/08/19 04:27 Tylenol Tab PO Q6HR PRN Fever and/ or Pain Amiodarone HCl 400 mg 05/08/19 09:00 05/08/19 20:19 Cordarone PO 05/14/19 23:00 400 mg BID LATRELL Administration Amiodarone HCl 200 mg 05/15/19 09:00 Cordarone PO 05/21/19 23:00 BID LATRELL Amiodarone HCl 200 mg 05/22/19 09:00 Cordarone PO 05/28/19 23:00 DAILY LATRELL Apixaban 5 mg 05/08/19 09:00 05/08/19 20:20 Eliquis PO 5 mg BID LATRELL Administration Aspirin 81 mg 05/08/19 09:00 08/06/19 09:28 Aspirin PO 81 mg DAILY LATRELL Administration Atorvastatin Calcium 40 mg 05/08/19 21:00 05/08/19 20:19 Lipitor PO 40 mg HS LATRELL Administration Cholecalciferol 2,000 unit 05/09/19 09:00 Vitamin D3 (25 Mcg = 1000 Iu) PO DAILY LATRELL Citalopram Hydrobromide 40 mg 05/08/19 11:00 05/08/19 15:04 Celexa PO 40 mg QAM LATRELL Administration Ferrous Sulfate 325 mg 05/08/19 21:00 05/08/19 20:19 Feosol PO 325 mg BID LATRELL Administration Furosemide 40 mg 05/09/19 09:00 Lasix PO 05/16/19 09:00 DAILY LATRELL Levothyroxine Sodium 125 mcg 05/08/19 06:30 05/09/19 05:31 Synthroid PO 125 mcg DAILY@0630 LATRELL Administration Metoprolol Tartrate 50 mg 05/09/19 09:00 Lopressor PO BID [facility] Miscellaneous Information 1 each 05/08/19 08:27 Rx Info: Iv Contrast Was Given MISCELLANE 05/10/19 08:27 DAILY PRN Per Protocol Pantoprazole Sodium 40 mg 05/08/19 07:30 05/09/19 05:31 Protonix PO 40 mg AC-BRKFST LATRELL Administration Senna/Docusate Sodium 2 each 05/08/19 10:52 Senokot-S PO HS PRN Constipation Sodium Chloride 10 ml 05/09/19 09:00 Saline Flush IV BID LATRELL Intake and Output 05/08/19 05/09/19 05/09/19 22:59 06:59 14:59 Intake Total 240 240 Balance 240 240 Intake: Oral 240 240 Other: # Voids 1 1 05/08/19 03:08 05/08/19 02:08 EKG Interpretations (text) EKG on presentation here showed atrial fibrillation with a rapid ventricular response Assessment and Plan Plan: Assessment and plan #1 atrial fibrillation with rapid ventricular response, paroxysmal #2 recent aortic valve replacement with bioprosthetic aortic valve #3 hypertension #4 hypothyroidism #5 chronic anemia #6 GERD #7 obesity Plan Patient will continue on the oral amiodarone as well as Eliquis. Give one dose of IV Lasix. From our perspective she may be able to be discharged home once cleared by primary and cardiothoracic surgery. She does have an appointment in the office with Dr. Don Montgomery which she's been instructed to keep. DNP note has been reviewed, I agree with a documented findings and plan of care. Patient was seen and examined.
[2019-05-09] MEDS ORDERED: FUROSEMIDE 10 MG/ML 4 ML VIAL IV STA (08:42)
[2019-05-09 08:50] VITALS: RESP 16; TEMP 97.7
[2019-05-09] MEDS ORDERED: CHOLECALCIFEROL 1,000 UNIT TAB PO SCH (09:00)
[2019-05-09] MEDS ORDERED: FUROSEMIDE 40 MG TAB PO SCH (09:00)
[2019-05-09] MEDS ORDERED: METOPROLOL TARTRATE 50 MG TAB PO SCH (09:00)
--- NOTE | 2019-05-09 09:35 | P.PN ---
Subjective Progress Note Date: 05/09/19 Principal diagnosis: Paroxysmal atrial fibrillation. Previous medical history of aortic valve stenosis with bioprosthetic aortic valve replacement on 04/30/2019, hypertension, hypothyroid, chronic anemia, previous tobacco dependence with FEV1 64% of predicted, GERD, vitamin D deficiency, fatty liver, morbid obesity, and depression The patient's currently sitting up in bed eating breakfast on the cardiac stepdown unit in no acute distress. She has had no more episodes of atrial fibrillation since initiation of amiodarone and increase in beta nadine. She does state that she feels much better and is ready to go home. No new concerns. Objective - Vital Signs Vital signs: Vital Signs Temp 97.7 F 05/09/19 08:35 Pulse 69 05/09/19 08:35 Resp 16 05/09/19 08:35 BP 127/59 05/09/19 08:35 Pulse Ox 97 05/09/19 08:35 Intake & Output 05/08/19 05/09/19 05/09/19 18:59 06:59 18:59 Intake Total 240 240 Balance 240 240 Intake: Oral 240 240 Other: # Voids 1 1 - Constitutional General appearance: Present: cooperative, no acute distress, obese - Respiratory Details: Lungs sounds diminished bilaterally. Respirations even, nonlabored. Currently on room air with oxygen saturation 97%. Able to achieve 1000 mL on her incentive spirometry. Strong, nonproductive cough. - Cardiovascular Details: S1, S2 present. Regular rate and rhythm, normal sinus rhythm on telemetry. Sternum stable. Palpable peripheral pulses bilaterally. No edema present. No calf pain or tenderness noted. - Gastrointestinal Gastrointestinal Comment(s): Abdomen soft, nontender, nondistended. Active bowel sounds present 4 quadrants. Tolerating diet. - Genitourinary Genitourinary Comment(s): Continues to void clear, yellow urine. - Integumentary Integumentary Comment(s): Anterior chest incision well approximated with Dermabond dressing. No drainage present. - Neurologic Neurologic: Present: CNII-XII intact - Musculoskeletal Musculoskeletal: Present: gait normal, strength equal bilaterally - Psychiatric Psychiatric: Present: A&O x's 3, appropriate affect, intact judgment & insight - Allied health notes Allied health notes reviewed: nursing - Labs CBC & Chem 7: 05/08/19 03:08 05/08/19 02:08 - Imaging and Cardiology CT scan - chest: report reviewed, image reviewed Assessment and Plan Assessment: 1. Postoperative paroxysmal A. fib with RVR, status post clip ligation of the left atrial appendage 2. Aortic stenosis, status post bioprosthetic aortic valve replacement 04/30/2019 3. History of hypertension 4. Hypothyroid, current TSH 11.1, T4 1.43; preoperative TSH 6.57 with T4 1.09 5. Chronic anemia 6. Previous tobacco dependence 7. GERD 8. Vitamin D deficiency 9. Fatty liver 10. Morbid obesity 11. Depression Plan: 1. Continue low-dose aspirin, beta nadine therapy. Will increase beta nadine therapy as tolerated, increased to 50 mg twice daily today. 2. Continue amiodarone for A. fib prophylaxis. Tapered dosage, 400 mg twice daily for 1 week, then 200 mg twice daily for 1 week, then 200 mg daily for 1 week then stop. 3. Continue Eliquis for anticoagulation. Plavix discontinued. 4. Computed tomography scan of the chest was reviewed, no evidence of abscess. Will add Lasix. 5. Encourage continued incentive spirometry use. 6. Increase activity, ambulate as tolerated. 7. From cardiothoracic surgery standpoint patient can be discharged to home with home care. Postoperative cardiac surgery discharge instructions were placed on the discharge plan. Medications and activities were reviewed with the patient and her daughter. Patient should follow up in the cardiothoracic surgery office within the next few days and this was discussed and agreed upon with the patient and her daughter. Time with Patient: Greater than 30
[2019-05-09 12:14] VITALS: BP 114/61; PULSE 58
--- NOTE | 2019-05-11 23:45 | P.DS ---
Providers Date of admission: 05/08/19 04:26 Expected date of discharge: 05/09/19 Attending physician: Rajesh Figueroa Consults: 05/08/19 04:26 Consult Physician Routine Consulting Provider: Pipo Hines Consult Reason/Comments: palpitations Do you want consulting provider notified?: Already Contacted Consult Physician Routine Consulting Provider: Javy Argueta Consult Reason/Comments: palpitations Do you want consulting provider notified?: Yes [facility] Course: Hospital course: This is a pleasant 58-year-old patient of .. Chronic stable medical conditions include hypertension, hypothyroid, fatty liver, depression. Patient just about a week ago underwent aortic valve replacement. And was discharged from the hospital on May 05. Patient also had acute postop blood loss anemia as expected from surgery and some dilutional thrombocytopenia. When patient left she was doing much better. She was ambulating. Tolerating a diet. Breathing was stable. Patient now presents with episodes of heart racing. Some shortness of breath. Some dizziness. Patient is found to be in paroxysmal atrial fibrillation episodes with rapid ventricular rate. She was admitted for the same. Beta nadine dose was adjusted. Symptoms are much better by the time of discharge. Okay by cardiology and cardiac thoracic to be discharged. P atient should have have a repeat in a few weeks' time. Consultation: Dr. Hines from [facility] Physical examination: VITAL SIGNS: 97.7, 69, 16, 1 27 x 59, 97% room air GENERAL: BMI 35.5, sitting up, comfortable,. EYES: Pupils equal. Conjunctiva normal. HEENT: External appearance of nose and ears normal, oral cavity grossly normal. NECK: JVD unable to assess; masses not palpable. HEART: First and second heart sounds are normal; minimal edema. LUNGS: Respiratory rate increased, decreased breath sounds. ABDOMEN: Soft, nontender, liver spleen not palpable, no masses palpable. PSYCH: Alert and oriented x3; mood and affect normal. Investigations, reviewed in the clinical context: White count 4.6 hemoglobin 9.3 platelets 160 Potassium 4.5 Troponin 0.467 EKG tracing personally reviewed by me shows A. fib with rapid ventricular rate Chest x-ray film personally reviewed by me shows some fluffiness of the vasculature. Small pleural effusion Computed tomography scan of the chest-small pleural effusion Assessment: -Paroxysmal atrial fibrillation episodes symptomatic with a rapid ventricular rate, POA -Aortic valve replacement with Simon bioprosthetic aortic valve with clip ligation of the left atrial appendage -Obesity BMI 35.5 -Essential hypertension -Hepatic steatosis -Hypothyroidism -Depression otherwise specified -Acute postop blood loss anemia as expected from surgery -Troponin leak from rapid heart rate. No clinical evidence of acute coronary syndrome Disposition: Home Patient Condition at Discharge: Stable Plan - Discharge Summary Discharge Rx Participant: No New Discharge Prescriptions: New Aspirin 81 mg PO DAILY #30 chew Amiodarone [Cordarone] 200 mg PO DAILY #7 tab Amiodarone [Cordarone] 200 mg PO BID #14 tab Amiodarone [Cordarone] 400 mg PO BID #22 tab Apixaban [Eliquis] 5 mg PO BID #60 tab Metoprolol Tartrate [Lopressor] 50 mg PO BID #60 tab Continue Cholecalciferol (Vitamin D3) [Vitamin D3] 2,000 unit PO DAILY Levothyroxine Sodium [Synthroid] 125 mcg PO QAM Citalopram Hydrobromide [CeleXA] 40 mg PO QAM Furosemide [Lasix] 20 mg PO DAILY #7 tab Atorvastatin [Lipitor] 40 mg PO HS #30 tab Pantoprazole [Protonix] 40 mg PO AC-BRKFST #30 tablet. Acetaminophen Tab [Tylenol] 1,000 mg PO Q6HR PRN #120 tab PRN Reason: Fever And/ Or Pain Sennosides-Docusate Sodium [Senokot-S] 2 tab PO HS PRN PRN Reason: Constipation Discontinued Ferrous Sulfate [Iron] 325 mg PO BID Clopidogrel [Plavix] 75 mg PO DAILY #30 tab Aspirin 325 tab PO DAILY #30 tab Metoprolol Tartrate [Lopressor] 25 mg PO BID Discharge Medication List Cholecalciferol (Vitamin D3) [Vitamin D3] 2,000 unit PO DAILY 03/27/19 [History] Citalopram Hydrobromide [CeleXA] 40 mg PO QAM 03/27/19 [History] Levothyroxine Sodium [Synthroid] 125 mcg PO QAM 03/27/19 [History] Acetaminophen Tab [Tylenol] 1,000 mg PO Q6HR PRN #120 tab 05/05/19 [Rx] Atorvastatin [Lipitor] 40 mg PO HS #30 tab 05/05/19 [Rx] Furosemide [Lasix] 20 mg PO DAILY #7 tab 05/05/19 [Rx] Pantoprazole [Protonix] 40 mg PO AC-BRKFST #30 tablet. 05/05/19 [Rx] Sennosides-Docusate Sodium [Senokot-S] 2 tab PO HS PRN 05/08/19 [History] Amiodarone [Cordarone] 200 mg PO BID #14 tab 05/09/19 [Rx] Amiodarone [Cordarone] 200 mg PO DAILY #7 tab 05/09/19 [Rx] Amiodarone [Cordarone] 400 mg PO BID #22 tab 05/09/19 [Rx] Apixaban [Eliquis] 5 mg PO BID #60 tab 05/09/19 [Rx] Aspirin 81 mg PO DAILY #30 chew 05/09/19 [Rx] Metoprolol Tartrate [Lopressor] 50 mg PO BID #60 tab 05/09/19 [Rx] Follow up Appointment(s)/Referral(s): Goran Stockton MD [STAFF PHYSICIAN] - 05/24/19 2:30 pm () Syeda Montgomery MD [STAFF PHYSICIAN] - 05/16/19 9:15 am (Tuesday) Odilon Hall MD [Primary Care Provider] - 05/17/19 1:15 pm () Alon Thomas NPC [Nurse Practitioner] - 3 Days Pipo Hines MD [STAFF PHYSICIAN] - 06/06/19 2:30 pm (Tuesday) Patient Instructions/Handouts: A-fib (Atrial Fibrillation) (DC), Safe Use of Anticoagulants (DC) Activity/Diet/Wound Care/Special Instructions: DISCHARGE INSTRUCTIONS: 1. No driving for 4 weeks, or until physician gives their ok. 2. The patient should sleep in their own bed, no medical bed needed. 3. Stairs are not an issue. If the bedroom is upstairs, it is advised that the patient go up at night and down in the morning for the first week. Go slowly, using handrail and take 1 step at a time. 4. EVELIO hose are to be worn for 30 days or until physician discontinues. 5. Heart hugger is to be worn 100% of the time until physician dis continues.(except when showering) 6. No lifting, pushing, or pulling more than 10 pounds for 12 weeks. The physician will advise of any restriction changes. 7. The patient is expected to continue the prescribed walking program. 8. Continue pain control per as needed orders. 9. Continue with incentive spirometry and splinting/heart hugger until otherwise directed by the physician. 10. Must shower daily using liquid antibacterial soap and a separate white washcloth for each individual incision. 11. Routine sternal incision care. No powders, lotions, ointments on incisions. 12. Please call surgeon/TRUCK GUARD for temp greater than 101 F or purulent drainage from incisions. 13. All prescriptions given by surgeon for 30 days. Refills need to be filled through pricing specialist/primary care physician. 14. A Red armband has been placed on the patient. It should be worn for 30 days post surgery and will be removed by the cardiac surgeons. If an ER visit is necessary, please make sure the number on the Red armband is called. 15. Amiodarone dosin mg twice daily until 05/15/19, then 200 mg twice daily until 05/22/19, then 200 mg daily until 05/29/19, then stop medication HOME HEALTH SERVICES TO PROVIDE: RN SKILLED HOME CARE SERVICES FOR POST-OP SURGICAL PATIENTS WITH THE FOLLOWING: Coronary Artery Bypass Surgery (CABG), Mitral Valve Replacement/Repair ( MVR), Aortic Valve Replacement/Repair (AVR) RN TO CONTINUE EDUCATION FROM ``ROAD TO A HEALTH HEART PATIENT EDUCATION MANUAL (GIVEN TO PATIENT IN THE HOSPITAL) MEDICATION RECONCILIATION WITH EDUCATION NEEDED ON FIRST HOME VISIT EMPHASIZE IMPORTANCE OF WEARING BREAST SUPPORT/HEART HUGGER ENCOURAGE USE OF INCENTIVE SPIROMETER 10 X EVERY HOUR WHILE AWAKE ENCOURAGE UTILIZATION OF LOWER EXTREMITY COMPRESSION STOCKINGS/EVELIO HOSE and ELEVATE LEGS ABOVE LEVEL OF HEART WHILE AT REST. ENCOURAGE AMBULATION 3-5x/day INCREASING TOLERATES, WHILE AVOID EXTREMES IN TEMPERATURE FREQUENCY: RN TO OPEN THE PATIENT WITHIN 24 HOURS OF DISCHARGE FROM THE HOSPITAL WITH TELEHEALTH INSTALLED AT [facility], RN TO VISIT 2-3 X A WEEK FOR 4 WEEKS ESTABLISHED BY PATIENT NEEDS. LABORATORY: CBC, CMP TO BE DRAWN ON THE THIRD DAY HOME, (RAN STAT) FAX RESULTS TO [phone]. TELEHEALTH PARAMETERS: WEIGHT: NOTIFY MD OF WEIGHT GAIN OF 2 LBS IN 24 HOURS OR 5 LBS IN ONE WEEK HR: NOTIFY MD OF HR <55 BPM OR HR>100 BPM BP: NOTIFY MD IF BP <90/55 OR BP>140/100 O2 SAT: NOTIFY MD IF PO2<93% ON ROOM AIR SEND TELEHEALTH REPORT TO IT ADMINISTRATOR AND CARDIOVASCULAR SURGEON THE FIRST WEEK OF CARE AND THEN BI-WEEKLY. PLEASE ADDITIONALLY COMMUNICATE ANY ABNORMALS AND NEW FINDINGS TO THE SURGEONS OFFICE. Discharge Disposition: HOME WITH HOME HEALTH SERVICES
[2019-05-15] MEDS ORDERED: AMIODARONE 200 MG TAB PO SCH (09:00)
[2019-05-22] MEDS ORDERED: AMIODARONE 200 MG TAB PO SCH (09:00)
== END 2019-05-09 16:16 | disposition home health service (06) ==
LOC: EC 01:28 → 3SCARD 04:26 → OBSVTOIN 07:09 → INTOOBSV 07:09 → 3SCARD 08:41
PROVIDERS: ADMIT Hospitalist; ATTEND Hospitalist
DX: I97.190 Other postprocedural cardiac functional disturbances following cardiac surgery (principal); I48.0 Paroxysmal atrial fibrillation; R94.6 Abnormal results of thyroid function studies; J90 Pleural effusion, not elsewhere classified; R79.89 Other specified abnormal findings of blood chemistry; I10 Essential (primary) hypertension; K76.0 Fatty (change of) liver, not elsewhere classified; E89.0 Postprocedural hypothyroidism; F32.9 Major depressive disorder, single episode, unspecified; K21.9 Gastro-esophageal reflux disease without esophagitis; E55.9 Vitamin D deficiency, unspecified; E66.01 Morbid (severe) obesity due to excess calories; Z68.35 Body mass index [BMI] 35.0-35.9, adult; R61 Generalized hyperhidrosis; D69.59 Other secondary thrombocytopenia; D62 Acute posthemorrhagic anemia; Z79.890 Hormone replacement therapy; Z79.02 Long term (current) use of antithrombotics/antiplatelets; Z79.899 Other long term (current) drug therapy; Z79.82 Long term (current) use of aspirin; Z91.041 Radiographic dye allergy status; Z91.040 Latex allergy status; Z91.048 Other nonmedicinal substance allergy status; Z90.49 Acquired absence of other specified parts of digestive tract; Z98.51 Tubal ligation status; Z95.2 Presence of prosthetic heart valve; Z87.891 Personal history of nicotine dependence; Z82.5 Family history of asthma and other chronic lower respiratory diseases; Z82.49 Family history of ischemic heart disease and other diseases of the circulatory system; Z80.0 Family history of malignant neoplasm of digestive organs
CPT/HCPCS: 96375 ×2; 96361; 96365; 99285; 36415; 93005; 97162; 97166; 84439; 80053; 83735; 84443; 84484; 85025; 85610; 85730; 81003; 71046; 71260; G0378 ×3; J1200; J1940; J2930; J0282; Q9967

== ENCOUNTER → 2019-05-11 | Outpatient (CLI) | payer MEDICAID ==
[2019-05-11 14:04] LABS: Anisocytosis Slight; HCT 28.1 % (34.0-46.0); HGB 9.2 gm/dL (11.4-16.0); Hypochromasia Slight; MCH 29.6 pg (25.0-35.0); MCHC 32.6 g/dL (31.0-37.0); MCV 90.7 fL (80.0-100.0); Mean Platelet Volume 8.6; Platelet Count 192 k/uL (150-450); RDW 17.4 % (11.5-15.5); WBC 7.5 k/uL (3.8-10.6)
[2019-05-11 18:52] LABS: African American GFR (CKD) 70.9 (60.0-200.0); Anion Gap 6.6 mmol/L (4.00-12.00); Calcium 8.3 mg/dL (8.7-10.3); Carbon Dioxide 24.4 mmol/L (21.6-31.8); Magnesium 1.8 mg/dL (1.5-2.4); Potassium 4.1 mmol/L (3.5-5.5)
[2019-05-11 19:00] LABS: T4, Free (Free Thyroxine) 1.3 ng/dL (0.80-1.80)
== END | disposition home or self-care (01) ==
LOC: LABWHC1 13:10
PROVIDERS: ATTEND Nurse Practitioner
DX: I35.0 Nonrheumatic aortic (valve) stenosis (principal)
CPT/HCPCS: 36415; 80048; 83735; 83880; 84439; 84443; 85027; 85379

== ENCOUNTER → 2019-05-16 | Outpatient (CLI) | payer MEDICAID ==
--- NOTE | 2019-05-16 10:50 | XR ---
EXAMINATION TYPE: XR chest 2V DATE OF EXAM: 05/16/2019 COMPARISON: 05/08/2019 HISTORY: Shortness of breath. History of open heart surgery. Pleural effusion. TECHNIQUE: Frontal and lateral views of the chest are obtained. FINDINGS: There are persistent pleural effusions, trace on the right and small on the left with asso ciated bibasilar airspace disease. Very minimal pulmonary vascular congestion is seen with enlarged c ardiac mediastinal silhouette and postoperative change. Cardiac valvular replacement is seen. Osseous structures are grossly intact with degenerative changes of the spine. IMPRESSION: Persistent pleural effusions similar to the prior of 05/08/2019 with associated bibasilar airspace disease and mild pulmonary vascular congestion.
== END | disposition home or self-care (01) ==
LOC: RADXRMAIN 10:24
PROVIDERS: ATTEND Nurse Practitioner
DX: J90 Pleural effusion, not elsewhere classified (principal); J98.4 Other disorders of lung; R09.89 Other specified symptoms and signs involving the circulatory and respiratory systems
CPT/HCPCS: 71046

== ENCOUNTER 2019-05-21 01:07 | Inpatient (IN) | payer MEDICAID ==
[2019-05-21] MEDS ORDERED: POTASSIUM CHLORIDE ER 20 MEQ TAB.ER PO STA (01:46)
[2019-05-21 01:47] LABS: Albumin 3.3 g/dL (3.5-5.0); Calcium 8.8 mg/dL (8.4-10.2); Magnesium 2.3 mg/dL (1.6-2.3); Total Bilirubin 0.8 mg/dL (0.2-1.3); Total Protein 7.5 g/dL (6.3-8.2)
[2019-05-21] MEDS ORDERED: SODIUM CHLORIDE 0.9% 500 ML 250 ML IV STA (01:49)
--- NOTE | 2019-05-21 01:54 | ED ---
SOB HPI - General Chief Complaint: Shortness of Breath Stated Complaint: THONG Time Seen by Provider: 05/21/19 01:15 Source: patient, EMS Mode of arrival: EMS Limitations: no limitations - History of Present Illness Initial Comments: This patient is a 58-year-old woman who presents as a transfer from [facility]. She has history of having aortic valve replacement on 05/09/[address] Hines. The patient had gone to the other hospital tonight for increasing shortness of breath. She was told that she has pleural effusions and in fact had an appointment established for May [address] Morris to have the effusion drained. The patient states however that her shortness of breath was getting worse over the course of today and tonight so she went to the hospital. The patient reportedly was feeling much better after being placed on BiPAP, and she was transferred here for admission. The patient is denying chest pain, fever or chills, cough or sputum. She has not had leg pain or swelling, change in urination or bowel movements. -: days(s) Consistency: constant Improves With: oxygen Worsens With: nothing Associated Symptoms: denies other symptoms Treatments Prior to Arrival: NIPPV - Related Data Home Oxygen Therapy: No Home Medications Medication Instructions Recorded Confirmed Cholecalciferol (Vitamin D3) 2,000 unit PO DAILY 03/27/19 05/21/19 [Vitamin D3] Citalopram Hydrobromide [CeleXA] 40 mg PO QAM 03/27/19 05/21/19 Sennosides-Docusate Sodium 2 tab PO HS PRN 05/08/19 05/21/19 [Senokot-S] Levothyroxine Sodium [Synthroid] 137 mcg PO DAILY 05/21/19 05/21/19 Metoprolol Tartrate [Lopressor] 25 mg PO BID 05/21/19 05/21/19 Previous Rx's Medication Instructions Recorded Acetaminophen Tab [Tylenol] 1,000 mg PO Q6HR PRN #120 tab 05/05/19 Atorvastatin [Lipitor] 40 mg PO HS #30 tab 05/05/19 Pantoprazole [Protonix] 40 mg PO AC-BRKFST #30 tablet. 05/05/19 Amiodarone [Cordarone] 200 mg PO DAILY #7 tab 05/09/19 Apixaban [Eliquis] 5 mg PO BID #60 tab 05/09/19 Aspirin 81 mg PO DAILY #30 chew 05/09/19 Furosemide [Lasix] 20 mg PO DAILY #7 tab 05/23/19 Allergies Allergy/AdvReac Type Severity Reaction Status Date / Time Iodinated Contrast- Oral and Allergy Severe Vomiting/ra Verified 05/21/19 07:15 IV Dye sh/itching latex Allergy Itching/queta Verified 05/21/19 07:15 h adhesive tape Allergy Itching/queta Uncoded 05/21/19 01:18 h Review of Systems ROS Statement: Those systems with pertinent positive or pertinent negative responses have been documented in the HPI. ROS Other: All systems not noted in ROS Statement are negative. Constitutional: Denies: fever, chills Respiratory: Reports: as per HPI, dyspnea. Denies: cough, wheezes, hemoptysis Cardiovascular: Denies: chest pain, palpitations, orthopnea, edema, syncope Gastrointestinal: Denies: abdominal pain, nausea, vomiting Genitourinary: Denies: dysuria, hematuria Musculoskeletal: Denies: back pain Skin: Denies: rash Neurological: Denies: headache, weakness, numbness Past Medical History Past Medical History: Chest Pain / Angina, Hypertension, Liver Disease, Thyroid Disorder Additional Past Medical History / Comment(s): SOB, palpitations, enlarged/fatty liver, anemia. Aortic stenosis History of Any Multi-Drug Resistant Organisms: None Reported Past Surgical History: Appendectomy, Cholecystectomy, Heart Catheterization, Orthopedic Surgery, Tubal Ligation Additional Past Surgical History / Comment(s): TREY,thyroidectomy, bunionectomy rt foot, aortic valve replacement 04/30 Past Anesthesia/Blood Transfusion Reactions: Postoperative Nausea & Vomiting (PONV) Additional Past Anesthesia/Blood Transfusion Reaction / Comment(s): no hx blood transfusion Past Psychological History: Depression Smoking Status: Former smoker Past Alcohol Use History: None Reported Past Drug Use History: None Reported - Past Family History Mother Family Medical History: No Reported History Father Family Medical History: Cancer, Congestive Heart Failure (CHF), COPD Additional Family Medical History / Comment(s): colon cancer General Exam Limitations: no limitations General appearance: alert, in no apparent distress Head exam: Present: atraumatic, normocephalic Eye exam: Present: normal appearance. Absent: scleral icterus, conjunctival injection Respiratory exam: Present: respiratory distress (Mild tachypnea), decreased breath sounds (Bilateral bases). Absent: wheezes, rales, rhonchi, stridor Cardiovascular Exam: Present: regular rate, normal rhythm, normal heart sounds. Absent: systolic murmur, diastolic murmur, rubs, gallop GI/Abdominal exam: Present: soft. Absent: distended, tenderness, guarding, rebound, rigid, mass Extremities exam: Present: normal inspection, normal capillary refill. Absent: pedal edema, calf tenderness Back exam: Present: normal inspection. Absent: CVA tenderness (R), CVA tenderness (L) Neurological exam: Present: alert Skin exam: Present: warm, dry, intact, normal color. Absent: rash Course Vital Signs 05/21/19 05/21/19 05/21/19 01:12 01:47 01:50 Temperature 97.6 F Pulse Rate 66 63 63 Respiratory 25 H 19 20 Rate Blood Pressure 85/44 77/42 77/42 O2 Sat by Pulse 95 96 95 Oximetry 05/21/19 05/21/19 05/21/19 02:00 02:10 02:30 Temperature Pulse Rate 63 61 60 Respiratory 25 H 21 Rate Blood Pressure 61/50 68/52 79/45 O2 Sat by Pulse 96 96 95 Oximetry 05/21/19 05/21/19 05/21/19 02:45 03:00 03:15 Temperature Pulse Rate 58 L 59 L 56 L Respiratory 17 19 19 Rate Blood Pressure 80/40 83/34 79/42 O2 Sat by Pulse 96 96 97 Oximetry 05/21/19 05/21/19 05/21/19 03:30 03:45 04:00 Temperature Pulse Rate 56 L 55 L 54 L Respiratory 22 17 16 Rate Blood Pressure 77/39 81/42 86/45 O2 Sat by Pulse 98 97 99 Oximetry 05/21/19 05/21/19 04:21 04:23 Temperature 97.6 F 98 F Pulse Rate 56 L Respiratory 30 H Rate Blood Pressure O2 Sat by Pulse 99 Oximetry - Reevaluation(s) Reevaluation #1: 05/21/19 02:48 Given the patient's vital signs and lab findings case is discussed with Dr. Weller and patient will be admitted to ICU. His treatment recommendations are incorporated. Medical Decision Making - Medical Decision Making 58-year-old woman now proximally 20 days following aortic valve replacements. She is transferred here from [facility] for dyspnea. Patient is clinically appear to be somewhat dry and labs also suggest this. IV fluids started. Case discussed with cardiothoracic surgery as well. - Lab Data Result diagrams: 05/23/19 04:33 05/23/19 04:33 Lab Results 05/21/19 05/21/19 05/21/19 Range/Units 01:16 01:16 01:16 WBC 4.5 (3.8-10.6) k/uL RBC 3.87 (3.80-5.40) m/uL Hgb 10.4 L (11.4-16.0) gm/dL Hct 34.0 (34.0-46.0) % MCV 88.0 (80.0-100.0) fL MCH 26.9 (25.0-35.0) pg MCHC 30.5 L (31.0-37.0) g/dL RDW 16.1 H (11.5-15.5) % Plt Count 173 (150-450) k/uL Neutrophils % (Manual) 76 % Band Neutrophils % 22 % Lymphocytes % (Manual) 2 % Neutrophils # (Manual) 4.40 (1.3-7.7) k/uL Lymphocytes # (Manual) 0.09 L (1.0-4.8) k/uL Nucleated RBCs 0 (0-0) /100 WBC Manual Slide Review Performed Hypochromasia Marked Poikilocytosis Slight Anisocytosis Slight Sodium 140 (137-145) mmol/L Potassium 4.0 (3.5-5.1) mmol/L Chloride 103 (98-107) mmol/L Carbon Dioxide 25 (22-30) mmol/L Anion Gap 12 mmol/L BUN 10 (7-17) mg/dL Creatinine 1.47 H (0.52-1.04) mg/dL Est GFR (CKD-EPI)AfAm 44 (>60 ml/min/1.73 sqM) Est GFR (CKD-EPI)NonAf 39 (>60 ml/min/1.73 sqM) Glucose 102 H (74-99) mg/dL Lactic Ac Sepsis Rflx Plasma Lactic Acid Norm 3.4 H* (0.7-2.0) mmol/L Calcium 8.8 (8.4-10.2) mg/dL Magnesium 2.3 (1.6-2.3) mg/dL Total Bilirubin 0.8 (0.2-1.3) mg/dL AST 36 (14-36) U/L ALT 20 (9-52) U/L Alkaline Phosphatase 99 (38-126) U/L Troponin I (0.000-0.034) ng/mL Total Protein 7.5 (6.3-8.2) g/dL Albumin 3.3 L (3.5-5.0) g/dL Urine Color Urine Appearance (Clear) Urine pH (5.0-8.0) Ur Specific Rubicon (1.001-1.035) Urine Protein (Negative) Urine Glucose (UA) (Negative) Urine Ketones (Negative) Urine Blood (Negative) Urine Nitrite (Negative) Urine Bilirubin (Negative) Urine Urobilinogen (<2.0) mg/dL Ur Leukocyte Esterase (Negative) Urine RBC (0-5) /hpf Urine WBC (0-5) /hpf Ur Squamous Epith Cells (0-4) /hpf Urine Bacteria (None) /hpf Hyaline Casts (0-2) /lpf WBC Casts (0) /lpf Urine Mucus (None) /hpf 05/21/19 05/21/19 05/21/19 Range/Units 01:16 02:16 02:41 WBC (3.8-10.6) k/uL RBC (3.80-5.40) m/uL Hgb (11.4-16.0) gm/dL Hct (34.0-46.0) % MCV (80.0-100.0) fL MCH (25.0-35.0) pg MCHC (31.0-37.0) g/dL RDW (11.5-15.5) % Plt Count (150-450) k/uL Neutrophils % (Manual) % Band Neutrophils % % Lymphocytes % (Manual) % Neutrophils # (Manual) (1.3-7.7) k/uL Lymphocytes # (Manual) (1.0-4.8) k/uL Nucleated RBCs (0-0) /100 WBC Manual Slide Review Hypochromasia Poikilocytosis Anisocytosis Sodium (137-145) mmol/L Potassium (3.5-5.1) mmol/L Chloride (98-107) mmol/L Carbon Dioxide (22-30) mmol/L Anion Gap mmol/L BUN (7-17) mg/dL Creatinine (0.52-1.04) mg/dL Est GFR (CKD-EPI)AfAm (>60 ml/min/1.73 sqM) Est GFR (CKD-EPI)NonAf (>60 ml/min/1.73 sqM) Glucose (74-99) mg/dL Lactic Ac Sepsis Rflx Y Plasma Lactic Acid Norm (0.7-2.0) mmol/L Calcium (8.4-10.2) mg/dL Magnesium (1.6-2.3) mg/dL Total Bilirubin (0.2-1.3) mg/dL AST (14-36) U/L ALT (9-52) U/L Alkaline Phosphatase (38-126) U/L Troponin I 0.110 H* (0.000-0.034) ng/mL Total Protein (6.3-8.2) g/dL Albumin (3.5-5.0) g/dL Urine Color Light Red Urine Appearance Cloudy H (Clear) Urine pH 5.5 (5.0-8.0) Ur Specific Rubicon 1.024 (1.001-1.035) Urine Protein 2+ H (Negative) Urine Glucose (UA) Negative (Negative) Urine Ketones Trace H (Negative) Urine Blood Negative (Negative) Urine Nitrite Negative (Negative) Urine Bilirubin 1+ H (Negative) Urine Urobilinogen 6.0 (<2.0) mg/dL Ur Leukocyte Esterase Small H (Negative) Urine RBC 4 (0-5) /hpf Urine WBC 24 H (0-5) /hpf Ur Squamous Epith Cells 19 H (0-4) /hpf Urine Bacteria Few H (None) /hpf Hyaline Casts 204 H (0-2) /lpf WBC Casts 15 (0) /lpf Urine Mucus Many H (None) /hpf - EKG Data EKG shows normal: sinus rhythm, intervals (SD interval 154 ms, QRS duration 82 ms, both normal. QTc is 560 ms, prolonged.) Rate: normal (Rate 67 bpm) Interpretation: other (Possible old anterior infarct.) Critical Care Time Critical Care Time: Yes (30 minutes) Disposition Clinical Impression: Hypotension, Lactic acidosis, Acute kidney injury, Pleural effusion Disposition: ADMITTED IP TO THIS HOSP Condition: Serious Is patient prescribed a controlled substance at d/c from ED?: No
[2019-05-21 01:55] LABS: Anisocytosis Slight; HGB 10.4 gm/dL (11.4-16.0); Hypochromasia Marked; MCH 26.9 pg (25.0-35.0); MCHC 30.5 g/dL (31.0-37.0); Mean Platelet Volume 7.7; Platelet Count 173 k/uL (150-450); Poikilocytosis Slight; RBC 3.87 m/uL (3.80-5.40); RDW 16.1 % (11.5-15.5); WBC 4.5 k/uL (3.8-10.6)
[2019-05-21 02:07] LABS: Band Neutrophils % 22 %; Lymphocytes # (M) 0.09 k/uL (1.0-4.8); Neutrophils % (M) 76 %; Nucleated Red Blood Cells 0 /100 WBC (0-0); Total Cells Counted 100
[2019-05-21] MEDS ORDERED: SODIUM CHLORIDE 0.9% 1,000 ML IV STA (02:41)
[2019-05-21] MEDS ORDERED: SODIUM CHLORIDE 0.9% 500 ML IV ONE (02:43)
[2019-05-21] MEDS ORDERED: NALOXONE 0.4 MG/ML 1 ML VIAL IV PRN ×2 (02:50→05:13)
[2019-05-21] MEDS ORDERED: IPRATROPIUM-ALBUTEROL 3 ML NEB INHALATION PRN (02:50)
[2019-05-21] MEDS ORDERED: SODIUM CHLORIDE 0.9% 500 ML 500 ML IV ONE (03:33)
[2019-05-21 04:22] LABS: Glucose,Whole Blood 117 mg/dL (75-99)
[2019-05-21] MEDS ORDERED: ALBUMIN HUMAN 5% 250 ML in EMPTY BAG 1 BAG IVPB STA ×2 (04:44→06:07)
[2019-05-21] MEDS ORDERED: ACETAMINOPHEN TAB 500 MG TAB PO PRN (04:50)
[2019-05-21] MEDS ORDERED: SENNOSIDES-DOCUSATE SODIUM 1 EACH TAB PO PRN (04:50)
[2019-05-21] MEDS: LEVOTHYROXINE 137 MCG TAB PO SCH (06:11)
[2019-05-21 06:55] LABS: Basophils % (A) 0 %; Eosinophils % (A) 1 %; HCT 31.9 % (34.0-46.0); HGB 9.7 gm/dL (11.4-16.0); Hypochromasia Marked; Lymphocytes # (A) 0.1 k/uL (1.0-4.8); Lymphocytes % (A) 2 %; MCH 27.8 pg (25.0-35.0); MCHC 30.3 g/dL (31.0-37.0); MCV 91.6 fL (80.0-100.0); Mean Platelet Volume 8.2; Monocytes # (A) 0.2 k/uL (0-1.0); Monocytes % (A) 3 %; Neutrophils # (A) 5.4 k/uL (1.3-7.7); Neutrophils % (A) 94 %; Platelet Count 136 k/uL (150-450); Poikilocytosis Slight; RBC 3.49 m/uL (3.80-5.40); RDW 15.7 % (11.5-15.5); WBC 5.7 k/uL (3.8-10.6)
[2019-05-21 07:05] LABS: Calcium 8.4 mg/dL (8.4-10.2); Potassium 4.8 mmol/L (3.5-5.1)
[2019-05-21] MEDS ORDERED: ALBUMIN HUMAN 5% 500 ML in EMPTY BAG 1 BAG IVPB STA (07:39)
--- NOTE | 2019-05-21 07:54 | XR ---
EXAMINATION TYPE: XR chest 1V DATE OF EXAM: 05/21/2019 COMPARISON: 05/16/2019 HISTORY: 58-year-old female shortness of breath, pleural effusion, open heart surgery 2 weeks ago TECHNIQUE: Single frontal view of the chest is obtained. FINDINGS: Median sternotomy wires with prosthetic aortic valve. Heart upper limits of normal in size. Continued small to moderate left with increasing [id number] right pleural effusions with adjacent bibas ilar opacity. IMPRESSION: Similar small to moderate left pleural effusion with adjacent atelectasis and/or consolidation. Sligh t increased small to moderate right effusion.
[2019-05-21] MEDS: PANTOPRAZOLE 40 MG TABLET PO SCH (07:55)
[2019-05-21] MEDS: AMIODARONE 200 MG TAB PO SCH (08:40)
[2019-05-21] MEDS: CITALOPRAM HYDROBROMIDE 20 MG TAB PO SCH (08:40)
--- NOTE | 2019-05-21 08:54 | CONS ---
CONSULTATION Mrs. Crabtree is a 58-year-old female who has underwent aortic valve replacement by Dr. Hines for severe aortic stenosis that was performed on the April 30 of this year. She received a 23 mm Spreedlyiris bioprosthetic aortic valve with left atrial appendage clip ligation. She had no evidence of obstructive coronary artery disease. Was discharged home, was readmitted with atrial fibrillation and subsequently converted to sinus mechanism. She has been complaining of dyspnea on exertion and had pleural effusion, was evaluated by Dr. Weller, was scheduled to undergo possible repeat thoracentesis when she was becoming more short of breath presented to [facility] yesterday with progressive dyspnea, some incisional chest discomfort with deep breathing, but no dizziness. No palpitation. She was in sinus mechanism. She was subsequently transferred to [facility] to undergo further evaluation. She is feeling slightly better today. She is denying any symptoms of chest pain. She has some palpitation, but no dizziness. She vomited yesterday. She has no syncope. There is no documentation of further atrial fibrillation at this point. In the past, her left ventricular systolic function has been normal. MEDICATIONS: His medications prior to the admission included Protonix, metoprolol tartrate 25 mg twice a day, Lasix 20 mg daily, Lipitor 40 mg daily, aspirin 81 mg daily, Eliquis 5 mg twice a day, amiodarone 200 mg daily. Her coronary risk factors remarkable for history of hyperlipidemia. She stopped smoking 3 years ago. She is a nondiabetic. PHYSICAL EXAMINATION: She is a 58-year-old female, alert, oriented, mildly dyspneic. Blood pressure 94/38 with the heart rate in the 50s. HEAD: Normocephalic. EYES: Sclerae anicteric. NECK: No bruit appreciated. LUNGS: With decreased breath sounds at the bases. HEART: Regular rate and rhythm. S1, S2. No S3 with systolic murmur heard at the base. No diastolic murmur, no rub. ABDOMEN: Soft, nontender. Positive bowel sounds. No organomegaly. EXTREMITIES: No significant edema. Intact distal pulses. LAB DATA: Lab data revealed a BUN and creatinine of 12 and 1.54 which has worsened compared to pre-surgical. Potassium 4.8. Hemoglobin of 9.7. Her troponin 0.11 and 0.102. Her plasma lactic acid is 3.4. Her EKG revealed a sinus mechanism with a normal axis, intervals and nonspecific ST-T wave changes. Her chest x-ray shows bilateral effusion. IMPRESSION: 1. Worsening dyspnea with evidence of pleural effusion. Her transthoracic echocardiogram revealed an echogenic area in the ascending aorta of unclear etiology. 2. Status post recent aortic valve replacement. 3. Paroxysmal atrial fibrillation remains in sinus mechanism. 4. Hyperlipidemia. 5. Prior history of smoking. 6. Worsening renal function. RECOMMENDATION: Patient will continue on the present therapy, but I will recommend to proceed with transesophageal echocardiogram to evaluate her aortic valve bioprosthesis. In the meantime, we will await the input of the Critical Care Pulmonary Service regarding her pleural effusion and depending on her progress, further recommendation will be made. Thank you for this consult. We will follow with you. MMODL / IJN: [id number] /
[2019-05-21] MEDS ORDERED: FAMOTIDINE 20 MG/2 ML VIAL IV SCH (09:00)
[2019-05-21 09:27] LABS: Appearance,Urine Cloudy (Clear); Bacteria,Urine Few /hpf; Bilirubin,Urine 1+ (Negative); Blood,Urine Negative (Negative); Color,Urine Light Red; Glucose,Urine (UA) Negative (Negative); Hyaline Casts,Urine 204 /lpf (0-2); Ketones,Urine Trace (Negative); Leukocyte Esterase,Urine Small (Negative); Mucus,Urine Many /hpf; Nitrite,Urine Negative (Negative); PH, Urine 5.5 (5.0-8.0); Protein,Urine 2+ (Negative); RBC,Urine 4 /hpf (0-5); Specific Gravity,Urine 1.024 (1.001-1.035); Squamous Epithelial Cell,Urine 19 /hpf (0-4); WBC,Urine 24 /hpf (0-5); White Blood Cell Casts,Urine 15 /lpf (0)
--- NOTE | 2019-05-21 10:47 | ECHOF ---
Referral Reason:rule out effusion MEASUREMENTS -------- HEIGHT: 165.1 cm WEIGHT: 103.9 kg BP: 76/40 IVSd: 1.3 cm (0.6 - 1.1) LVIDd: 4.7 cm (3.9 - 5.3) LVPWd: 1.0 cm (0.6 - 1.1) IVSs: 1.6 cm LVIDs: 3.5 cm LVPWs: 1.1 cm LA Diam: 4.2 cm (2.7 - 3.8) LAESV Index (A-L): 33.08 ml/m Ao Diam: 2.8 cm (2.0 - 3.7) LA Diam: 4.1 cm (2.7 - 3.8) MV EXCURSION: 14.230 mm (> 18.000) MV EF SLOPE: 70 mm/s (70 - 150) EPSS: 0.2 cm MV E Mike: 1.41 m/s MV DecT: 233 ms MV A Mike: 0.89 m/s MV E/A Ratio: 1.58 AV maxP.79 mmHg AV meanP.39 mmHg RAP: 5.00 mmHg RVSP: 27.65 mmHg FINDINGS -------- Sinus rhythm. This was a technically adequate study. The left ventricular size is normal. There is mild concentric left ventricular hypertrophy. Overa ll left ventricular systolic function is low-normal with, an EF between 50 - 55 %. The right ventricle is normal in size. The left atrium is mildly dilated. LA is midly dilated 29-33ml/m2. The right atrial size is normal. Peak/mean gradient across the Aortic Valve is 21.79mmHg / 9.39mmHg. Normally functioning bioprosthe tic valve. Moderate mitral regurgitation is present. Mild tricuspid regurgitation present. There is no evidence of pulmonary hypertension. The right v entricular systolic pressure, as measured by Doppler, is 27.65mmHg. The pulmonic valve was not well visualized. There is a small, generalized pericardial effusion present. Small Pleural Effusion. CONCLUSIONS -------- 1. Sinus rhythm. 2. This was a technically adequate study. 3. The left ventricular size is normal. 4. There is mild concentric left ventricular hypertrophy. 5. Overall left ventricular systolic function is low-normal with, an EF between 50 - 55 %. 6. The right ventricle is normal in size. 7. The left atrium is mildly dilated. 8. LA is midly dilated 29-33ml/m2. 9. The right atrial size is normal. 10. Peak/mean gradient across the Aortic Valve is 21.79mmHg / 9.39mmHg. 11. Normally functioning bioprosthetic valve. 12. Moderate mitral regurgitation is present. 13. Mild tricuspid regurgitation present. 14. There is no evidence of pulmonary hypertension. 15. The right ventricular systolic pressure, as measured by Doppler, is 27.65mmHg. 16. The pulmonic valve was not well visualized. 17. There is a small, generalized pericardial effusion present. 18. Small Pleural Effusion. 19. Echodense lesion in LVOF tract - could be artifact consider TREY if c linically indicated CUSTOMER CARE COORDINATOR: Rosalva Voss RDCS
--- NOTE | 2019-05-21 10:52 | P.NPCON ---
History of Present Illness - Reason for Consult acute renal failure - History of Present Illness Reason for consultation: Acute kidney injury History of present illness: Patient is a 58-year-old female seen in renal consultation for acute kidney injury. Patient's baseline creatinine is near 1 and was elevated at 1.47 on admission and is up to 1.54 this morning. Patient presented to the hospital with dyspnea. Patient had aortic up replacement done on April 30 of this year. She is noted to have bilateral pleural effusions and was actually scheduled to have thoracentesis done today. However patient's dyspnea progressively got worse and she came to the hospital instead. She denies any history of kidney disease. No history of diabetes. Denies regular use of nonsteroidals. No vomiting or diarrhea. Oral intake has been fair. She admits to good urine output. No hematuria or dysuria. Patient has been quite hypotensive with systolic blood pressure in the 70s and 80s since admission. Most recent blood pressure was 111/49. She has preserved ejection fraction. Patient has received IV albumin as well as boluses of normal saline for the hypotension. She was taking Lasix 20 mg orally once daily at home and states that edema in her lower extremities improved but dyspnea progressively got worse. Vital signs are stable. General: The patient appeared well nourished and normally developed. HEENT: Head exam is unremarkable. Neck is without jugular venous distension. LUNGS: Breath sounds decreased. HEART: Rate and Rhythm are regular. First and second heart sounds normal. No murmurs, rubs or gallops. ABDOMEN: Abdominal exam reveals normal bowel sounds. Non-tender and non- distended. No evidence of peritonitis. EXTREMITITES: Trace edema. Past Medical History Past Medical History: Chest Pain / Angina, Hypertension, Liver Disease, Thyroid Disorder Additional Past Medical History / Comment(s): SOB, palpitations, enlarged/fatty liver, anemia. Aortic stenosis History of Any Multi-Drug Resistant Organisms: None Reported Past Surgical History: Appendectomy, Cholecystectomy, Heart Catheterization, Orthopedic Surgery, Tubal Ligation Additional Past Surgical History / Comment(s): TREY,thyroidectomy, bunionectomy rt foot, aortic valve replacement 04/30 Past Anesthesia/Blood Transfusion Reactions: Postoperative Nausea & Vomiting (PONV) Additional Past Anesthesia/Blood Transfusion Reaction / Comment(s): no hx blood transfusion Past Psychological History: Depression Smoking Status: Former smoker Past Alcohol Use History: None Reported Past Drug Use History: None Reported - Past Family History Mother Family Medical History: No Reported History Father Family Medical History: Cancer, Congestive Heart Failure (CHF), COPD Additional Family Medical History / Comment(s): colon cancer Medications and Allergies Home Medications Medication Instructions Recorded Confirmed Type Cholecalciferol (Vitamin D3) 2,000 unit PO DAILY 03/27/19 05/21/19 History [Vitamin D3] Citalopram Hydrobromide [CeleXA] 40 mg PO QAM 03/27/19 05/21/19 History Acetaminophen Tab [Tylenol] 1,000 mg PO Q6HR PRN #120 tab 05/05/19 05/21/19 Rx Atorvastatin [Lipitor] 40 mg PO HS #30 tab 05/05/19 05/21/19 Rx Furosemide [Lasix] 20 mg PO DAILY #7 tab 05/05/19 05/21/19 Rx Pantoprazole [Protonix] 40 mg PO AC-BRKFST #30 tablet.dr 05/05/19 05/21/19 Rx Sennosides-Docusate Sodium 2 tab PO HS PRN 05/08/19 05/21/19 History [Senokot-S] Amiodarone [Cordarone] 200 mg PO DAILY #7 tab 05/09/19 05/21/19 Rx Apixaban [Eliquis] 5 mg PO BID #60 tab 05/09/19 05/21/19 Rx Aspirin 81 mg PO DAILY #30 chew 05/09/19 05/21/19 Rx Levothyroxine Sodium [Synthroid] 137 mcg PO DAILY 05/21/19 05/21/19 History Metoprolol Tartrate [Lopressor] 25 mg PO BID 05/21/19 05/21/19 History Allergies Allergy/AdvReac Type Severity Reaction Status Date / Time Iodinated Contrast- Oral and Allergy Severe Vomiting/ra Verified 05/21/19 07:15 IV Dye sh/itching latex Allergy Itching/queta Verified 05/21/19 07:15 h adhesive tape Allergy Itching/queta Uncoded 05/21/19 01:18 h Physical Exam Vitals: Vital Signs Temp Pulse Resp BP Pulse Ox 05/21/19 10:00 53 L 30 H 111/49 98 05/21/19 09:30 51 L 38 H 97/49 100 05/21/19 09:00 51 L 34 H 91/44 98 05/21/19 08:30 53 L 38 H 92/42 97 05/21/19 08:00 97.5 F L 50 L 29 H 76/40 97 05/21/19 07:30 51 L 31 H 104/42 99 05/21/19 07:23 99 05/21/19 07:00 50 L 17 94/38 99 05/21/19 06:30 51 L 20 82/46 98 05/21/19 06:00 54 L 14 86/42 97 05/21/19 05:30 53 L 24 79/44 97 05/21/19 05:27 97 05/21/19 05:00 53 L 30 H 75/51 96 05/21/19 04:45 54 L 33 H 76/36 95 05/21/19 04:30 54 L 26 H 89/43 96 05/21/19 04:23 98 F 05/21/19 04:21 97.6 F 56 L 30 H 99 05/21/19 04:00 54 L 16 86/45 99 05/21/19 03:45 55 L 17 81/42 97 05/21/19 03:30 56 L 22 77/39 98 05/21/19 03:15 56 L 19 79/42 97 05/21/19 03:00 59 L 19 83/34 96 05/21/19 02:45 58 L 17 80/40 96 05/21/19 02:30 60 21 79/45 95 05/21/19 02:10 61 68/52 96 05/21/19 02:00 63 25 H 61/50 96 05/21/19 01:50 63 20 77/42 95 05/21/19 01:47 63 19 77/42 96 05/21/19 01:12 97.6 F 66 25 H 85/44 95 Intake and Output 05/20/19 05/21/19 05/21/19 22:59 06:59 14:59 Intake Total 800 700 Output Total 100 Balance 800 600 Intake: IV 800 700 Albumin Human 5% 250 ml 500 500 In Empty Bag 1 bag @ 250 mls/hr IVPB ONCE STA Rx#: [id number] Sodium Chloride 0.9% 1, 300 200 000 ml @ 100 mls/hr IV . Q10H STA Rx#:[id number] Output: Urine 100 Other: Voiding Method Bedpan # Voids 1 Weight 103.873 kg 106.3 kg Results - Lab Results Most recent lab results Calcium 8.4 mg/dL (8.4-10.2) 05/21/19 06:19 Magnesium 2.3 mg/dL (1.6-2.3) 05/21/19 01:16 05/21/19 06:19 05/21/19 06:19 Assessment and Plan Plan: Assessment: 1. Acute kidney injury secondary to ischemic ATN secondary to hypotension as well as component of cardiorenal syndrome. Baseline creatinine is near 1 and is up to 1.54 today. 2. Dyspnea secondary to volume overload. She is noted to have bilateral pleural effusions and is scheduled for thoracentesis today. 3. Status post aortic valve replacement on 04/30/2019. 4. Moderate mitral regurgitation. 5. Paroxysmal A. fib. 6. Pyuria. Urine culture pending. Plan: Hep-Lock IV fluids. Lasix 40 mg IV once now. This can be repeated in the evening if she remains dyspneic after the thoracentesis. Avoid nephrotoxins. Follow-up TREY. Continue to monitor renal function and urine output. Case discussed with the livestock feeder. Thank you for the consultation. I will continue to follow the patient with you during her hospital stay.
--- NOTE | 2019-05-21 11:08 | P.GSCN ---
History of Present Illness Consult date: 05/21/19 Reason for Consult: Known to us, recent aortic valve replacement Requesting physician: Efrain Mcgovern History of present illness: This is a 58-year-old active female patient who follows on an outpatient basis with Dr. Hall as well as Dr. Montgomery from [facility]. She has a previous medical history of aortic valve stenosis with bioprosthetic aortic valve replacement on 04/30/2019 with postoperative atrial fibrillation with rapid ventricular response experienced after discharge, hypertension, hypothyroid, chronic anemia, previous tobacco dependence with FEV1 64% of predicted, GERD, vitamin D deficiency, fatty liver, morbid obesity, and depression. She was discharged to home with home care on 05/05/2019 after her aortic valve replacement and was scheduled to follow-up in the cardiothoracic surgery office. A few days after discharge she began to experience palpitations associated with diaphoresis and lightheadedness. She also complained of feeling like she had a gas bubble stuck in her chest just to the right of her mid sternal incision which she experienced every time she swallowed liquids or food. She presented to [facility] emergency room and was found to be in atrial fibrillation with rapid ventricular response. She was also noted to have a TSH of 11.1, preoperatively she was 6.57 with a T4 of 1.09. She was admitted in observation and initiated on amiodarone as well as Eliquis. She was discharged in normal sinus rhythm and followed up in the cardiothoracic surgery office a couple days later, continue to remain in sinus rhythm with stable vital signs. Over the last several days she has experienced increased shortness of breath and was seen by Dr. Weller from pulmonology, an x-ray was taken demonstrating bilateral pleural effusions and she was scheduled to have outpatient thoracentesis today, 05/20/2019. Last night however she felt her shortness of breath was significant enough that she couldn't take a deep breath, she developed some right-sided chest pain, and presented to [facility] emergency room for evaluation and treatment. She was found to be hypotensive and was given IV fluid boluses. She was placed on BiPAP and transferred to [facility] for further evaluation and treatment. she was found to have elevated lactic acid 3.4, creatinine 1.47, normal white blood cell count of 4.5. She was admitted to the intensive care unit with consultation placed to Dr. Hines from cardiothoracic surgery, pulmonology, and cardiology. Review of Systems review of systems was completed and was negative except as noted - Cardiovascular Reports chest pain, Reports shortness of breath - Respiratory Reports cough Past Medical History Past Medical History: Chest Pain / Angina, Hypertension, Liver Disease, Thyroid Disorder Additional Past Medical History / Comment(s): SOB, palpitations, enlarged/fatty liver, anemia. Aortic stenosis History of Any Multi-Drug Resistant Organisms: None Reported Past Surgical History: Appendectomy, Cholecystectomy, Heart Catheterization, Orthopedic Surgery, Tubal Ligation Additional Past Surgical History / Comment(s): TREY,thyroidectomy, bunionectomy rt foot, aortic valve replacement 04/30 Past Anesthesia/Blood Transfusion Reactions: Postoperative Nausea & Vomiting (PONV) Additional Past Anesthesia/Blood Transfusion Reaction / Comm: no hx blood transfusion Past Psychological History: Depression Smoking Status: Former smoker Past Alcohol Use History: None Reported Past Drug Use History: None Reported - Past Family History Mother Family Medical History: No Reported History Father Family Medical History: Cancer, Congestive Heart Failure (CHF), COPD Additional Family Medical History / Comment(s): colon cancer Medications and Allergies Home Medications Medication Instructions Recorded Confirmed Type Cholecalciferol (Vitamin D3) 2,000 unit PO DAILY 03/27/19 05/21/19 History [Vitamin D3] Citalopram Hydrobromide [CeleXA] 40 mg PO QAM 03/27/19 05/21/19 History Acetaminophen Tab [Tylenol] 1,000 mg PO Q6HR PRN #120 tab 05/05/19 05/21/19 Rx Atorvastatin [Lipitor] 40 mg PO HS #30 tab 05/05/19 05/21/19 Rx Furosemide [Lasix] 20 mg PO DAILY #7 tab 05/05/19 05/21/19 Rx Pantoprazole [Protonix] 40 mg PO AC-BRKFST #30 tablet. 05/05/19 05/21/19 Rx Sennosides-Docusate Sodium 2 tab PO HS PRN 05/08/19 05/21/19 History [Senokot-S] Amiodarone [Cordarone] 200 mg PO DAILY #7 tab 05/09/19 05/21/19 Rx Apixaban [Eliquis] 5 mg PO BID #60 tab 05/09/19 05/21/19 Rx Aspirin 81 mg PO DAILY #30 chew 05/09/19 05/21/19 Rx Levothyroxine Sodium [Synthroid] 137 mcg PO DAILY 05/21/19 05/21/19 History Metoprolol Tartrate [Lopressor] 25 mg PO BID 05/21/19 05/21/19 History Allergies Allergy/AdvReac Type Severity Reaction Status Date / Time Iodinated Contrast- Oral and Allergy Severe Vomiting/ra Verified 05/21/19 07:15 IV Dye sh/itching latex Allergy Itching/queta Verified 05/21/19 07:15 h adhesive tape Allergy Itching/queta Uncoded 05/21/19 01:18 h Surgical - Exam Vital Signs Temp Pulse Resp BP Pulse Ox 97.6 F 66 25 H 85/44 95 05/21/19 01:12 05/21/19 01:12 05/21/19 01:12 05/21/19 01:12 05/21/19 01:12 - General well developed, well nourished, moderate distress, no pain, obese - Eyes PERRL, normal ocular movement - ENT no hearing loss - Neck no masses, no bruits, trachea midline - Respiratory Lungs sounds diminished with coarse breath sounds in the bases. Respirations even, tachypneic. Currently on 6 L nasal cannula with oxygen saturation 95%. - Cardiovascular S1, S2 present. Slow but regular rate and rhythm, sinus bradycardia on telemetry. Sternum stable. Palpable peripheral pulses bilaterally. No edema present. No calf pain or tenderness noted. - Abdomen Abdomen: soft, non tender, bowel sounds - Genitourinary deferred - Rectum deferred - Integumentary anterior chest incision well approximated without drainage no rash, no growths, no abnormal pigmentation - Neurologic normal coordination, normal sensation - Musculoskeletal normal gait, normal posture - Psychiatric oriented to time, oriented to person, oriented to place, speech is normal, memory intact Results - Labs 05/21/19 06:19 05/21/19 06:19 Abnormal Lab Results - Last 24 Hours (Table) 05/21/19 05/21/19 05/21/19 Range/Units 01:16 01:16 01:16 RBC (3.80-5.40) m/uL Hgb 10.4 L (11.4-16.0) gm/dL Hct (34.0-46.0) % MCHC 30.5 L (31.0-37.0) g/dL RDW 16.1 H (11.5-15.5) % Plt Count (150-450) k/uL Lymphocytes # (1.0-4.8) k/uL Lymphocytes # (Manual) 0.09 L (1.0-4.8) k/uL Creatinine 1.47 H (0.52-1.04) mg/dL Glucose 102 H (74-99) mg/dL POC Glucose (mg/dL) (75-99) mg/dL Plasma Lactic Acid Norm 3.4 H* (0.7-2.0) mmol/L Troponin I (0.000-0.034) ng/mL Albumin 3.3 L (3.5-5.0) g/dL Urine Appearance (Clear) Urine Protein (Negative) Urine Ketones (Negative) Urine Bilirubin (Negative) Ur Leukocyte Esterase (Negative) Urine WBC (0-5) /hpf Ur Squamous Epith Cells (0-4) /hpf Urine Bacteria (None) /hpf Hyaline Casts (0-2) /lpf Urine Mucus (None) /hpf 05/21/19 05/21/19 05/21/19 Range/Units 01:16 02:41 04:19 RBC (3.80-5.40) m/uL Hgb (11.4-16.0) gm/dL Hct (34.0-46.0) % MCHC (31.0-37.0) g/dL RDW (11.5-15.5) % Plt Count (150-450) k/uL Lymphocytes # (1.0-4.8) k/uL Lymphocytes # (Manual) (1.0-4.8) k/uL Creatinine (0.52-1.04) mg/dL Glucose (74-99) mg/dL POC Glucose (mg/dL) 117 H (75-99) mg/dL Plasma Lactic Acid Norm (0.7-2.0) mmol/L Troponin I 0.110 H* (0.000-0.034) ng/mL Albumin (3.5-5.0) g/dL Urine Appearance Cloudy H (Clear) Urine Protein 2+ H (Negative) Urine Ketones Trace H (Negative) Urine Bilirubin 1+ H (Negative) Ur Leukocyte Esterase Small H (Negative) Urine WBC 24 H (0-5) /hpf Ur Squamous Epith Cells 19 H (0-4) /hpf Urine Bacteria Few H (None) /hpf Hyaline Casts 204 H (0-2) /lpf Urine Mucus Many H (None) /hpf 05/21/19 05/21/19 05/21/19 Range/Units 06:19 06:19 06:19 RBC 3.49 L (3.80-5.40) m/uL Hgb 9.7 L (11.4-16.0) gm/dL Hct 31.9 L (34.0-46.0) % MCHC 30.3 L (31.0-37.0) g/dL RDW 15.7 H (11.5-15.5) % Plt Count 136 L (150-450) k/uL Lymphocytes # 0.1 L (1.0-4.8) k/uL Lymphocytes # (Manual) (1.0-4.8) k/uL Creatinine 1.54 H (0.52-1.04) mg/dL Glucose 112 H (74-99) mg/dL POC Glucose (mg/dL) (75-99) mg/dL Plasma Lactic Acid Norm 3.0 H* (0.7-2.0) mmol/L Troponin I (0.000-0.034) ng/mL Albumin (3.5-5.0) g/dL Urine Appearance (Clear) Urine Protein (Negative) Urine Ketones (Negative) Urine Bilirubin (Negative) Ur Leukocyte Esterase (Negative) Urine WBC (0-5) /hpf Ur Squamous Epith Cells (0-4) /hpf Urine Bacteria (None) /hpf Hyaline Casts (0-2) /lpf Urine Mucus (None) /hpf 05/21/19 Range/Units 06:19 RBC (3.80-5.40) m/uL Hgb (11.4-16.0) gm/dL Hct (34.0-46.0) % MCHC (31.0-37.0) g/dL RDW (11.5-15.5) % Plt Count (150-450) k/uL Lymphocytes # (1.0-4.8) k/uL Lymphocytes # (Manual) (1.0-4.8) k/uL Creatinine (0.52-1.04) mg/dL Glucose (74-99) mg/dL POC Glucose (mg/dL) (75-99) mg/dL Plasma Lactic Acid Norm (0.7-2.0) mmol/L Troponin I 0.102 H* (0.000-0.034) ng/mL Albumin (3.5-5.0) g/dL Urine Appearance (Clear) Urine Protein (Negative) Urine Ketones (Negative) Urine Bilirubin (Negative) Ur Leukocyte Esterase (Negative) Urine WBC (0-5) /hpf Ur Squamous Epith Cells (0-4) /hpf Urine Bacteria (None) /hpf Hyaline Casts (0-2) /lpf Urine Mucus (None) /hpf Diabetes panel 05/21/19 05/21/19 Range/Units 01:16 06:19 Sodium 140 139 (137-145) mmol/L Potassium 4.0 4.8 (3.5-5.1) mmol/L Chloride 103 107 (98-107) mmol/L Carbon Dioxide 25 22 (22-30) mmol/L BUN 10 12 (7-17) mg/dL Creatinine 1.47 H 1.54 H (0.52-1.04) mg/dL Glucose 102 H 112 H (74-99) mg/dL Calcium 8.8 8.4 (8.4-10.2) mg/dL AST 36 (14-36) U/L ALT 20 (9-52) U/L Alkaline Phosphatase 99 (38-126) U/L Total Protein 7.5 (6.3-8.2) g/dL Albumin 3.3 L (3.5-5.0) g/dL Calcium panel 05/21/19 05/21/19 Range/Units 01:16 06:19 Calcium 8.8 8.4 (8.4-10.2) mg/dL Albumin 3.3 L (3.5-5.0) g/dL Pituitary panel 05/21/19 05/21/19 Range/Units 01:16 06:19 Sodium 140 139 (137-145) mmol/L Potassium 4.0 4.8 (3.5-5.1) mmol/L Chloride 103 107 (98-107) mmol/L Carbon Dioxide 25 22 (22-30) mmol/L BUN 10 12 (7-17) mg/dL Creatinine 1.47 H 1.54 H (0.52-1.04) mg/dL Glucose 102 H 112 H (74-99) mg/dL Calcium 8.8 8.4 (8.4-10.2) mg/dL Adrenal panel 05/21/19 05/21/19 Range/Units 01:16 06:19 Sodium 140 139 (137-145) mmol/L Potassium 4.0 4.8 (3.5-5.1) mmol/L Chloride 103 107 (98-107) mmol/L Carbon Dioxide 25 22 (22-30) mmol/L BUN 10 12 (7-17) mg/dL Creatinine 1.47 H 1.54 H (0.52-1.04) mg/dL Glucose 102 H 112 H (74-99) mg/dL Calcium 8.8 8.4 (8.4-10.2) mg/dL Total Bilirubin 0.8 (0.2-1.3) mg/dL AST 36 (14-36) U/L ALT 20 (9-52) U/L Alkaline Phosphatase 99 (38-126) U/L Total Protein 7.5 (6.3-8.2) g/dL Albumin 3.3 L (3.5-5.0) g/dL - Imaging Chest x-ray: report reviewed, image reviewed EKG: image reviewed Assessment and Plan Assessment: 1. Shortness of breath, hypotension on admission 2. Acute kidney injury 3. Pyuria without fever, normal white blood cell count 4. History of aortic stenosis, status post bioprosthetic aortic valve replacement 04/30/2019 5. Postoperative A. fib with RVR, status post clip ligation of the left atrial appendage 6. History of hypertension, currently hypotensive 7. Hypothyroid, Synthroid was increased by primary care physician after last admission 8. Chronic anemia 9. Previous tobacco dependence 10. GERD 11. Vitamin D deficiency 12. Fatty liver 13. Morbid obesity 14. Depression Plan: The patient was seen and examined at the bedside in the emergency room. Chart/diagnostics were reviewed. Case was discussed in detail with Dr. Hines. At this time we will increase her Lopressor to 25 mg every 8 hours, continue oral amiodarone 400 mg twice daily, add Eliquis for anticoagulation, continue baby aspirin. Computed tomography scan of the chest was ordered to evaluate the pain in her chest. Free T4 level was admitted to this morning's labs, thyroid medication adjustment per primary care service. Incentive spirometry ordered a nd encouraged. Increase activity, ambulate as tolerated, PT/OT ordered. Hopefully will be able to get atrial fibrillation under control and discharge patient to home with home care within 24 hours. Patient will follow up with cardiothoracic surgery within 48 hours of discharge. More recommendations to follow. Time with Patient: Greater than 30
--- NOTE | 2019-05-21 11:24 | US ---
EXAMINATION TYPE: US chest DATE OF EXAM: 05/21/2019 COMPARISON: NONE CLINICAL HISTORY: 58-year-old female bilateral pleural effusions. TECHNIQUE: Targeted ultrasound of the posterior lower bilateral hemithoraces EXAM MEASUREMENTS: Right Pleural Effusion pocket size: 7.3 cm Right skin surface to fluid distance: 3.2 cm Left Pleural Effusion pocket size: 9.3 cm Left skin surface to fluid distance: 3.1 cm Right side marked for possible thoracentesis outside the dept. Left side marked for possible thoracentesis outside the dept. Pulmonologists are able to review the images in the patient?s EMR. IMPRESSIONS: Moderate bilateral pleural effusions. Markings performed.
--- NOTE | 2019-05-21 11:30 | XR ---
EXAMINATION TYPE: XR chest 1V portable DATE OF EXAM: 05/21/2019 COMPARISON: Prior chest x-ray dated 05/21/2019 HISTORY: Status post thoracentesis TECHNIQUE: Single frontal view of the chest is obtained. FINDINGS: There is some interval improved aeration at the right lung base. Patient is post median st ernotomy and the heart remains enlarged. Basilar increased density is noted greater on the left. No e vident pneumothorax. IMPRESSION: No evident complication status post thoracentesis.
[2019-05-21] MEDS ORDERED: MIDAZOLAM PF (FBP) 2 MG/2 ML VIAL IV ONE (11:51)
[2019-05-21] MEDS ORDERED: fentaNYL (PF) 50 MCG/ML 2 ML AMP IVP STA (11:52)
[2019-05-21] MEDS ORDERED: SODIUM CHLORIDE 0.9% 1,000 ML IV SCH (12:15)
[2019-05-21] MEDS ORDERED: FUROSEMIDE 10 MG/ML 4 ML VIAL IV STA (12:36)
--- NOTE | 2019-05-21 12:36 | ECHOT ---
TRANSESOPHAGEAL ECHOCARDIOGRAM INDICATION: Evaluation of aortic valve. PROCEDURE: After explaining the procedure to the patient, its risks and the complications, blood pressure, heart rate, O2 saturation was monitored. The throat was sprayed with Cetacaine. She received 2 mg intravenous Versed, 50 mcg intravenous fentanyl. The probe was introduced esophagus without difficulty. Images were obtained. Following that, the probe was removed. There was no immediate complication. FINDINGS: Left atrial size is dilated. The left atrial appendage is closed. The left ventricular size and systolic function normal. The mitral valve revealed mild thickening of the mitral valve leaflets. A bioprosthetic aortic valve was noted. Tricuspid valve is normal. Descending thoracic aorta appears to be normal. Ascending aorta revealed no evidence of abnormalities. Small pericardial effusion was noted. Contrast bubble study revealed no evidence of shunting across the interatrial septum. Doppler pulse wave and color Doppler were obtained and revealed a mild to moderate mitral with moderate tricuspid regurgitation. There was no evidence of shunting by color Doppler study. CONCLUSION: 1. Dilated left atrium with closed left atrial appendage. 2. Normal left ventricular size and systolic function. 3. Normal appearance of bioprosthetic aortic valve with normal appearance of of the ascending aorta. 4. Small pericardial effusion. 5. Mild to moderate mitral with moderate tricuspid regurgitation. 6. No shunting across the interatrial septum. MMODL / IJN: [id number] /
--- NOTE | 2019-05-21 12:51 | P.HPIM ---
History of Present Illness H&P Date: 05/21/19 Chief Complaint: Shortness of breath Patient is a 58-year-old female with a known history of aortic valve replacement on 04/30/2019 due to aortic stenosis, hypertension, hypothyroidism, fatty liver And morbid obesity with a BMI 37.[address] [facility] with complaints of worsening shortness of breath for the past 2 weeks and increased severity last night. Patient was also hypotensive which made her to go to ER. Patient was discharged from the hospital on 05/05/2019 after surgery. She presented to ER on 05/08/2019 due to palpitations and was admitted to observation unit due to atrial fibrillation. Patient was sent back with sinus rhythm and was being continued on metoprolol and amiodarone. Patient was seen by Dr. Weller in the pulmonary clinic where he had chest x-ray due to worsening short of breath which showed pleural effusion and is supposed to get thoracentesis on 05/20/2019. Patient presented to hospital due to worsening symptoms. Patient was found to have elevated lactic acid level. Creatinine went up to 1.47. Chest x-ray showed similar small to moderate left pleural effusion with adjacent atelectasis and/or consolidation. Slight increased small to moderate right pleural effusion. EKG showed normal sinus rhythm. Troponin 0.110 and 0.102 2-D echocardiogram showed ejection fraction 50-55%. Right ventricular systolic pressure is 27.65 mmHg. Echodense lesion in the BURMESE F tract could be artifact, consider TREY if clinically indicated. Urinalysis showed likely contaminant sample. Patient has been afebrile. No leukocytosis. Patient was seen with pulmonary and is status post right-sided thoracentesis with 400 mL fluid removal. Patient was given a dose of Lasix. Patient otherwise denied any complaints of cough or sputum production. No chest pain. No nausea vomiting or diarrhea. No increased leg swelling. No dysuria or hematuria. Review of Systems Constitutional: Patient denies any fever or chills . No generalized weakness or weight loss. Abdomen: Patient denied nausea vomiting and diarrhea and abdominal pain. Cardiovascular: Patient denies any chest pain . patient does have shortness of breath. no palpitations. Respiratory: patient denied any cough is from production. No shortness of breath Neurologic: Patient denied any numbness or tingling headache. Musculoskeletal: Patient denies any complaints of joint swelling or deformity. Skin: Negative Psychiatric: Negative Endocrine: No heat or cold intolerance. No recent weight gain. Genitourinary: No dysuria or hematuria. All other 14 point ROS negative except the above Past Medical History Past Medical History: Chest Pain / Angina, Hypertension, Liver Disease, Thyroid Disorder Additional Past Medical History / Comment(s): SOB, palpitations, enlarged/fatty liver, anemia. Aortic stenosis History of Any Multi-Drug Resistant Organisms: None Reported Past Surgical History: Appendectomy, Cholecystectomy, Heart Catheterization, Orthopedic Surgery, Tubal Ligation Additional Past Surgical History / Comment(s): TREY,thyroidectomy, bunionectomy rt foot, aortic valve replacement 04/30 Past Anesthesia/Blood Transfusion Reactions: Postoperative Nausea & Vomiting (PONV) Additional Past Anesthesia/Blood Transfusion Reaction / Comment(s): no hx blood transfusion Past Psychological History: Depression Smoking Status: Former smoker Past Alcohol Use History: None Reported Past Drug Use History: None Reported - Past Family History Mother Family Medical History: No Reported History Father Family Medical History: Cancer, Congestive Heart Failure (CHF), COPD Additional Family Medical History / Comment(s): colon cancer Medications and Allergies Home Medications Medication Instructions Recorded Confirmed Type Cholecalciferol (Vitamin D3) 2,000 unit PO DAILY 03/27/19 05/21/19 History [Vitamin D3] Citalopram Hydrobromide [CeleXA] 40 mg PO QAM 03/27/19 05/21/19 History Acetaminophen Tab [Tylenol] 1,000 mg PO Q6HR PRN #120 tab 05/05/19 05/21/19 Rx Atorvastatin [Lipitor] 40 mg PO HS #30 tab 05/05/19 05/21/19 Rx Furosemide [Lasix] 20 mg PO DAILY #7 tab 05/05/19 05/21/19 Rx Pantoprazole [Protonix] 40 mg PO AC-BRKFST #30 tablet. 05/05/19 05/21/19 Rx Sennosides-Docusate Sodium 2 tab PO HS PRN 05/08/19 05/21/19 History [Senokot-S] Amiodarone [Cordarone] 200 mg PO DAILY #7 tab 05/09/19 05/21/19 Rx Apixaban [Eliquis] 5 mg PO BID #60 tab 08/07/19 08/19/19 Rx Aspirin 81 mg PO DAILY #30 chew 05/09/19 05/21/19 Rx Levothyroxine Sodium [Synthroid] 137 mcg PO DAILY 05/21/19 05/21/19 History Metoprolol Tartrate [Lopressor] 25 mg PO BID 05/21/19 05/21/19 History Allergies Allergy/AdvReac Type Severity Reaction Status Date / Time Iodinated Contrast- Oral and Allergy Severe Vomiting/ra Verified 05/21/19 07:15 IV Dye sh/itching latex Allergy Itching/queta Verified 05/21/19 07:15 h adhesive tape Allergy Itching/queta Uncoded 05/21/19 01:18 h Physical Exam Vitals: Vital Signs Temp Pulse Resp BP Pulse Ox 05/21/19 08:30 53 L 38 H 92/42 97 05/21/19 08:00 97.5 F L 50 L 29 H 76/40 97 05/21/19 07:30 51 L 31 H 104/42 99 05/21/19 07:23 99 05/21/19 07:00 50 L 17 94/38 99 05/21/19 06:30 51 L 20 82/46 98 05/21/19 06:00 54 L 14 86/42 97 05/21/19 05:30 53 L 24 79/44 97 05/21/19 05:27 97 05/21/19 05:00 53 L 30 H 75/51 96 05/21/19 04:45 54 L 33 H 76/36 95 05/21/19 04:30 54 L 26 H 89/43 96 05/21/19 04:23 98 F 05/21/19 04:21 97.6 F 56 L 30 H 99 05/21/19 04:00 54 L 16 86/45 99 05/21/19 03:45 55 L 17 81/42 97 05/21/19 03:30 56 L 22 77/39 98 05/21/19 03:15 56 L 19 79/42 97 05/21/19 03:00 59 L 19 83/34 96 05/21/19 02:45 58 L 17 80/40 96 05/21/19 02:30 60 21 79/45 95 05/21/19 02:10 61 68/52 96 05/21/19 02:00 63 25 H 61/50 96 05/21/19 01:50 63 20 77/42 95 05/21/19 01:47 63 19 77/42 96 05/21/19 01:12 97.6 F 66 25 H 85/44 95 Intake and Output 05/20/19 05/21/19 05/21/19 22:59 06:59 14:59 Intake Total 800 700 Output Total 100 Balance 800 600 Intake: IV 800 700 Albumin Human 5% 250 ml 500 500 In Empty Bag 1 bag @ 250 mls/hr IVPB ONCE STA Rx#: [id number] Sodium Chloride 0.9% 1, 300 200 000 ml @ 100 mls/hr IV . Q10H STA Rx#:[id number] Output: Urine 100 Other: Voiding Method Bedpan # Voids 1 Weight 103.873 kg 106.3 kg PHYSICAL EXAMINATION: Patient is lying in the bed comfortably, no acute distress, awake alert and oriented.. HEENT: Normocephalic. Neck is supple. Pupils reactive. Nostrils clear. Oral cavity is moist. Ears reveal no drainage. Neck reveals no JVD, carotid bruits, or thyromegaly. CHEST EXAMINATION: Trachea is central. Surgical site healing well. Symmetrical expansion. Right basilar crackles and left lower lung diminished breath sounds. Otherwise Lung mathur clear to auscultation and percussion. CARDIAC: Normal S1, S2 with no gallops. No murmurs ABDOMEN: Soft. Bowel sounds normal. No organomegaly. No abdominal bruits. Extremities: 1+ edema. No clubbing or cyanosis Neurologically awake, alert, oriented x3 with well-coordinated movements. No focal deficits noted Skin: No rash or skin lesions. Psychiatric: Coperative. Nonsuicidal Musculoskeletal: No joint swelling or deformity. Normal range of motion. Results CBC & Chem 7: 05/21/19 06:19 05/21/19 06:19 Labs: Abnormal Lab Results - Last 24 Hours (Table) 05/21/19 05/21/19 05/21/19 Range/Units 01:16 01:16 01:16 RBC (3.80-5.40) m/uL Hgb 10.4 L (11.4-16.0) gm/dL Hct (34.0-46.0) % MCHC 30.5 L (31.0-37.0) g/dL RDW 16.1 H (11.5-15.5) % Plt Count (150-450) k/uL Lymphocytes # (1.0-4.8) k/uL Lymphocytes # (Manual) 0.09 L (1.0-4.8) k/uL Creatinine 1.47 H (0.52-1.04) mg/dL Glucose 102 H (74-99) mg/dL POC Glucose (mg/dL) (75-99) mg/dL Plasma Lactic Acid Norm 3.4 H* (0.7-2.0) mmol/L Troponin I (0.000-0.034) ng/mL Albumin 3.3 L (3.5-5.0) g/dL Urine Appearance (Clear) Urine Protein (Negative) Urine Ketones (Negative) Urine Bilirubin (Negative) Ur Leukocyte Esterase (Negative) Urine WBC (0-5) /hpf Ur Squamous Epith Cells (0-4) /hpf Urine Bacteria (None) /hpf Hyaline Casts (0-2) /lpf Urine Mucus (None) /hpf 05/21/19 05/21/19 05/21/19 Range/Units 01:16 02:41 04:19 RBC (3.80-5.40) m/uL Hgb (11.4-16.0) gm/dL Hct (34.0-46.0) % MCHC (31.0-37.0) g/dL RDW (11.5-15.5) % Plt Count (150-450) k/uL Lymphocytes # (1.0-4.8) k/uL Lymphocytes # (Manual) (1.0-4.8) k/uL Creatinine (0.52-1.04) mg/dL Glucose (74-99) mg/dL POC Glucose (mg/dL) 117 H (75-99) mg/dL Plasma Lactic Acid Norm (0.7-2.0) mmol/L Troponin I 0.110 H* (0.000-0.034) ng/mL Albumin (3.5-5.0) g/dL Urine Appearance Cloudy H (Clear) Urine Protein 2+ H (Negative) Urine Ketones Trace H (Negative) Urine Bilirubin 1+ H (Negative) Ur Leukocyte Esterase Small H (Negative) Urine WBC 24 H (0-5) /hpf Ur Squamous Epith Cells 19 H (0-4) /hpf Urine Bacteria Few H (None) /hpf Hyaline Casts 204 H (0-2) /lpf Urine Mucus Many H (None) /hpf 05/21/19 05/21/19 05/21/19 Range/Units 06:19 06:19 06:19 RBC 3.49 L (3.80-5.40) m/uL Hgb 9.7 L (11.4-16.0) gm/dL Hct 31.9 L (34.0-46.0) % MCHC 30.3 L (31.0-37.0) g/dL RDW 15.7 H (11.5-15.5) % Plt Count 136 L (150-450) k/uL Lymphocytes # 0.1 L (1.0-4.8) k/uL Lymphocytes # (Manual) (1.0-4.8) k/uL Creatinine 1.54 H (0.52-1.04) mg/dL Glucose 112 H (74-99) mg/dL POC Glucose (mg/dL) (75-99) mg/dL Plasma Lactic Acid Norm 3.0 H* (0.7-2.0) mmol/L Troponin I (0.000-0.034) ng/mL Albumin (3.5-5.0) g/dL Urine Appearance (Clear) Urine Protein (Negative) Urine Ketones (Negative) Urine Bilirubin (Negative) Ur Leukocyte Esterase (Negative) Urine WBC (0-5) /hpf Ur Squamous Epith Cells (0-4) /hpf Urine Bacteria (None) /hpf Hyaline Casts (0-2) /lpf Urine Mucus (None) /hpf 05/21/19 Range/Units 06:19 RBC (3.80-5.40) m/uL Hgb (11.4-16.0) gm/dL Hct (34.0-46.0) % MCHC (31.0-37.0) g/dL RDW (11.5-15.5) % Plt Count (150-450) k/uL Lymphocytes # (1.0-4.8) k/uL Lymphocytes # (Manual) (1.0-4.8) k/uL Creatinine (0.52-1.04) mg/dL Glucose (74-99) mg/dL POC Glucose (mg/dL) (75-99) mg/dL Plasma Lactic Acid Norm (0.7-2.0) mmol/L Troponin I 0.102 H* (0.000-0.034) ng/mL Albumin (3.5-5.0) g/dL Urine Appearance (Clear) Urine Protein (Negative) Urine Ketones (Negative) Urine Bilirubin (Negative) Ur Leukocyte Esterase (Negative) Urine WBC (0-5) /hpf Ur Squamous Epith Cells (0-4) /hpf Urine Bacteria (None) /hpf Hyaline Casts (0-2) /lpf Urine Mucus (None) /hpf Thrombosis Risk Factor Assmnt - DVT/VTE Prophylaxis DVT/VTE Prophylaxis: Pharmacologic Prophylaxis ordered - Choose All That Apply Any of the Below Risk Factors Present?: Yes Each Factor Represents 1 point: History of prior major surgery (<1month), Medical pt on bed rest, Obesity (BMI >25) Thrombosis Risk Factor Assessment Total Risk Factor Score: 3 Thrombosis Risk Factor Assessment Level: Moderate Risk Assessment and Plan Assessment: Shortness of breath secondary to bilateral pleural effusion status post right thoracentesis. Hypotension Acute kidney injury secondary to ATN and renal hypoperfusion. Lactic acidosis likely due to tissue hypoperfusion. Improving Status post aortic valve replacement on 04/30/2019 Postoperative A. fib with RVR status post clip ligation of the left atrial appendage. Paroxysmal atrial fibrillation. On metoprolol, amiodarone and Eliquis. Echodense lesion in the BURMESE F tract could be artifact as per TTE on 05/21/2019 and follow-up TREY Elevated TSH level. Follow-up free T4 Hypothyroidism GERD Vitamin D deficiency Fatty liver Depression Morbid obesity BMI 37.8 Plan: Patient is status post right-sided thoracentesis. Was given 1 dose of IV Lasix. Follow-up renal function. Continue with metoprolol, amiodarone and anticoagulation in the form of Eliquis. Patient is scheduled for TREY today afternoon. Cardiology, CT surgery and nephrology is following. Follow-up renal function and lactic acid level. Further recommendations based on the clinical course. Discussed with the patient and her family at bedside in detail. Time with Patient: Greater than 30
--- NOTE | 2019-05-21 13:14 | P.CNPUL ---
History of Present Illness Consult date: 05/21/19 Requesting physician: Mel Valencia Reason for consult: pleural effusion Chief complaint: Shortness of breath and right-sided pleuritic chest pain History of present illness: This is a 58-year-old female with history of aortic valve stenosis and bioprosthetic aortic valve replacement on 04/30/2019. Postoperatively the patient had atrial fibrillation with RVR, she also had many other comorbidities including COPD with FEV1 in the range of 64%, chronic anemia, hypothyroidism, hypertension, fatty liver, morbid obesity, and depression. Over the last few days, the patient has been complaining of shortness of breath and right-sided pleuritic chest pain, apparently she was seen by Dr. Weller, and she was scheduled to have thoracentesis done today. However yesterday the patient was feeling worse, she was initially seen in the ER at [facility], and arrangements were made to transfer the patient to [facility]. Considering the abnormal chest x-ray and considering the bilateral pleural effusion, I was asked to see the patient on consultation. Right-sided tho racentesis was done, 400 mL of serosanguineous fluid removed from the right pleural space, and I plan to proceed with left sided thoracentesis either later today or tomorrow morning. Upon presentation the patient was noted to be hypotensive, received fluid boluses, placed on BiPAP, and transferred to [facility]. Her creatinine was noted to be elevated at 1.47 she had a relatively normal WBC count, and she was seen by cardiology on consultation, had a transthoracic echo was abnormal, TREY was performed, there was evidence of dilated left atrium, normal appearance of the bioprosthetic aortic valve and appearance of the ascending aorta small pericardial effusion was noted, mild to moderate mitral and moderate tricuspid regurgitation noted. No shunt was noted across the intra-atrial septum. Review of Systems Constitutional: Denies fever chills, denies weight loss. HEENT: Negative Pulmonary: Mostly shortness of breath and right-sided pleuritic chest pain Cardiac: As noted in HPI. GI: Denies nausea vomiting abdominal pain melena or hematemesis Genitourinary: Denies any dysuria frequency urgency or hematuria. Skin: Negative Psychiatric: Negative Endocrine: Denies any heat or cold intolerance. Musculoskeletal: Negative Psychiatric: Denies any symptoms of active depression Hematologic: Denies any clotting bleeding or bruising Skin: Denies any rashes Past Medical History Past Medical History: Chest Pain / Angina, Hypertension, Liver Disease, Thyroid Disorder Additional Past Medical History / Comment(s): SOB, palpitations, enlarged/fatty liver, anemia. Aortic stenosis History of Any Multi-Drug Resistant Organisms: None Reported Past Surgical History: Appendectomy, Cholecystectomy, Heart Catheterization, Ort hopedic Surgery, Tubal Ligation Additional Past Surgical History / Comment(s): TREY,thyroidectomy, bunionectomy rt foot, aortic valve replacement 04/30 Past Anesthesia/Blood Transfusion Reactions: Postoperative Nausea & Vomiting (PONV) Additional Past Anesthesia/Blood Transfusion Reaction / Comment(s): no hx blood transfusion Past Psychological History: Depression Smoking Status: Former smoker Past Alcohol Use History: None Reported Past Drug Use History: None Reported - Past Family History Mother Family Medical History: No Reported History Father Family Medical History: Cancer, Congestive Heart Failure (CHF), COPD Additional Family Medical History / Comment(s): colon cancer Medications and Allergies Home Medications Medication Instructions Recorded Confirmed Type Cholecalciferol (Vitamin D3) 2,000 unit PO DAILY 03/27/19 05/21/19 History [Vitamin D3] Citalopram Hydrobromide [CeleXA] 40 mg PO QAM 03/27/19 05/21/19 History Acetaminophen Tab [Tylenol] 1,000 mg PO Q6HR PRN #120 tab 05/05/19 05/21/19 Rx Atorvastatin [Lipitor] 40 mg PO HS #30 tab 05/05/19 05/21/19 Rx Furosemide [Lasix] 20 mg PO DAILY #7 tab 05/05/19 05/21/19 Rx Pantoprazole [Protonix] 40 mg PO AC-BRKFST #30 tablet. 05/05/19 05/21/19 Rx Sennosides-Docusate Sodium 2 tab PO HS PRN 05/08/19 05/21/19 History [Senokot-S] Amiodarone [Cordarone] 200 mg PO DAILY #7 tab 05/09/19 05/21/19 Rx Apixaban [Eliquis] 5 mg PO BID #60 tab 05/09/19 05/21/19 Rx Aspirin 81 mg PO DAILY #30 chew 05/09/19 05/21/19 Rx Levothyroxine Sodium [Synthroid] 137 mcg PO DAILY 05/21/19 05/21/19 History Metoprolol Tartrate [Lopressor] 25 mg PO BID 05/21/19 05/21/19 History Allergies Allergy/AdvReac Type Severity Reaction Status Date / Time Iodinated Contrast- Oral and Allergy Severe Vomiting/ra Verified 05/21/19 07:15 IV Dye sh/itching latex Allergy Itching/queta Verified 05/21/19 07:15 h adhesive tape Allergy Itching/queta Uncoded 05/21/19 01:18 h Physical Exam Vitals: Vital Signs Temp Pulse Resp BP Pulse Ox 05/21/19 12:30 52 L 18 94/45 97 05/21/19 12:15 55 L 13 141/79 96 05/21/19 12:00 57 L 30 H 97/52 98 05/21/19 11:45 52 L 25 H 97/64 98 05/21/19 11:30 51 L 26 H 104/49 99 05/21/19 11:15 51 L 24 114/53 99 05/21/19 11:00 54 L 19 114/53 99 05/21/19 10:45 54 L 30 H 104/52 98 05/21/19 10:30 53 L 31 H 99/56 98 05/21/19 10:00 53 L 30 H 111/49 98 05/21/19 09:30 51 L 38 H 97/49 100 05/21/19 09:00 51 L 34 H 91/44 98 05/21/19 08:30 53 L 38 H 92/42 97 05/21/19 08:00 97.5 F L 50 L 29 H 76/40 97 05/21/19 07:30 51 L 31 H 104/42 99 05/21/19 07:23 99 05/21/19 07:00 50 L 17 94/38 99 05/21/19 06:30 51 L 20 82/46 98 05/21/19 06:00 54 L 14 86/42 97 05/21/19 05:30 53 L 24 79/44 97 05/21/19 05:27 97 05/21/19 05:00 53 L 30 H 75/51 96 05/21/19 04:45 54 L 33 H 76/36 95 05/21/19 04:30 54 L 26 H 89/43 96 05/21/19 04:23 98 F 05/21/19 04:21 97.6 F 56 L 30 H 99 05/21/19 04:00 54 L 16 86/45 99 05/21/19 03:45 55 L 17 81/42 97 05/21/19 03:30 56 L 22 77/39 98 05/21/19 03:15 56 L 19 79/42 97 05/21/19 03:00 59 L 19 83/34 96 05/21/19 02:45 58 L 17 80/40 96 05/21/19 02:30 60 21 79/45 95 05/21/19 02:10 61 68/52 96 05/21/19 02:00 63 25 H 61/50 96 05/21/19 01:50 63 20 77/42 95 05/21/19 01:47 63 19 77/42 96 05/21/19 01:12 97.6 F 66 25 H 85/44 95 Intake and Output 05/20/19 05/21/19 05/21/19 22:59 06:59 14:59 Intake Total 800 700 Output Total 100 Balance 800 600 Intake: IV 800 700 Albumin Human 5% 250 ml 500 500 In Empty Bag 1 bag @ 250 mls/hr IVPB ONCE STA Rx#: [id number] Sodium Chloride 0.9% 1, 300 200 000 ml @ 100 mls/hr IV . Q10H STA Rx#:[id number] Output: Urine 100 Other: Voiding Method Bedpan # Voids 1 Weight 103.873 kg 106.3 kg PHYSICAL EXAMINATION: General: Revealed a 58-year-old female in no distress, pleasant. Head: Atraumatic, normocephalic. HEENT: PERRLA, EOMI, no icterus. Moist mucous membranes. Neck reveals no JVD, carotid bruits, or thyromegaly. CHEST EXAMINATION: Diminished breath sounds and dullness at the bases bilaterally, symmetrical chest expansion, no chest wall tenderness.. CARDIAC: Irregular irregular rhythm. Normal S1, S2 with no gallops. 2/6 systolic murmur thought the precordium. ABDOMEN: Obese, Soft. Bowel sounds normal. No organomegaly. Extremities: 1+ edema. No clubbing or cyanosis. Neurologically alert oriented 3, no gross focal neurologic deficits. Skin: No rash or skin lesions. Psychiatric normal mood, affect and normal mental status examination. Musculoskeletal: No deformities, normal range of motion. Results - Laboratory Findings CBC and BMP: 05/21/19 06:19 05/21/19 06:19 Abnormal lab findings: Abnormal Labs 05/21/19 05/21/19 05/21/19 01:16 01:16 01:16 RBC Hgb 10.4 L Hct MCHC 30.5 L RDW 16.1 H Plt Count Lymphocytes # Lymphocytes # (Manual) 0.09 L Creatinine 1.47 H Glucose 102 H POC Glucose (mg/dL) Plasma Lactic Acid Norm 3.4 H* Troponin I Albumin 3.3 L Urine Appearance Urine Protein Urine Ketones Urine Bilirubin Ur Leukocyte Esterase Urine WBC Ur Squamous Epith Cells Urine Bacteria Hyaline Casts Urine Mucus 05/21/19 05/21/19 05/21/19 01:16 02:41 04:19 RBC Hgb Hct MCHC RDW Plt Count Lymphocytes # Lymphocytes # (Manual) Creatinine Glucose POC Glucose (mg/dL) 117 H Plasma Lactic Acid Norm Troponin I 0.110 H* Albumin Urine Appearance Cloudy H Urine Protein 2+ H Urine Ketones Trace H Urine Bilirubin 1+ H Ur Leukocyte Esterase Small H Urine WBC 24 H Ur Squamous Epith Cells 19 H Urine Bacteria Few H Hyaline Casts 204 H Urine Mucus Many H 05/21/19 05/21/19 05/21/19 06:19 06:19 06:19 RBC 3.49 L Hgb 9.7 L Hct 31.9 L MCHC 30.3 L RDW 15.7 H Plt Count 136 L Lymphocytes # 0.1 L Lymphocytes # (Manual) Creatinine 1.54 H Glucose 112 H POC Glucose (mg/dL) Plasma Lactic Acid Norm 3.0 H* Troponin I Albumin Urine Appearance Urine Protein Urine Ketones Urine Bilirubin Ur Leukocyte Esterase Urine WBC Ur Squamous Epith Cells Urine Bacteria Hyaline Casts Urine Mucus 05/21/19 06:19 RBC Hgb Hct MCHC RDW Plt Count Lymphocytes # Lymphocytes # (Manual) Creatinine Glucose POC Glucose (mg/dL) Plasma Lactic Acid Norm Troponin I 0.102 H* Albumin Urine Appearance Urine Protein Urine Ketones Urine Bilirubin Ur Leukocyte Esterase Urine WBC Ur Squamous Epith Cells Urine Bacteria Hyaline Casts Urine Mucus - Diagnostic Findings Chest x-ray: image reviewed (As noted in HPI) Assessment and Plan Assessment: Impression: 1 bilateral pleural effusions, most likely secondary to congestive heart failure, diastolic in nature unless proven otherwise. 2 acute kidney injury secondary to ATN, possibly cardiorenal in nature. 3 status post aortic valve replacement on 04/30/2019. 4 postoperative atrial fibrillation and RVR 5 paroxysmal atrial fibrillation 6 hypothyroidism 7 GERD 8 morbid obesity 9 fatty liver Recommendation: Will proceed with a right-sided thoracentesis, and this was done, 400 mL of grossly bloody effusion was removed from the right pleural space, and I plan to proceed with left sided thoracentesis. In the meantime continue present treatment plan including diuretics, close monitoring of the renal status, hemodynamic monitoring, and incentive spirometry, and bronchodilators. Time with Patient: Greater than 30
--- NOTE | 2019-05-21 15:21 | XR ---
EXAMINATION TYPE: XR chest 1V portable DATE OF EXAM: 05/21/2019 Comparison: 05/21/2019 Clinical History: 58-year-old female thoracentesis Findings: Median sternotomy wires are present. Prosthetic aortic valve. Heart is mildly enlarged. Residual smal l left pleural effusion following thoracentesis. No appreciable pneumothorax. Hazy lower lung densiti es related to large patient body habitus. Impression: Residual small left pleural effusion following thoracentesis. No appreciable pneumothorax.
[2019-05-21 15:26] LABS: Appearance,BF Bloody; Color,BF Red; Nucleated Cells, Body Fluid 2500 /uL; RBC, Body Fluid 265500 /uL
[2019-05-21 15:30] LABS: Mononuclear WBC,Body Fluid 54 %; Polynuclear WBC,Body Fluid 46 %; Total Cells Counted,Body Fluid 100
[2019-05-21 15:34] LABS: Appearance,BF Blood Tinged; Color,BF Red
[2019-05-21 16:23] LABS: RBC, Body Fluid 78000 /uL
[2019-05-21 16:24] LABS: Nucleated Cells, Body Fluid 300 /uL
[2019-05-21 16:25] LABS: Mononuclear WBC,Body Fluid 55 %; Polynuclear WBC,Body Fluid 45 %; Total Cells Counted,Body Fluid 100
--- NOTE | 2019-05-21 19:39 | OP ---
OPERATIVE REPORT OPERATION: Right-sided thoracentesis. PREOPERATIVE DIAGNOSIS: Right pleural effusion. POSTOPERATIVE DIAGNOSIS: Right pleural effusion. ANESTHESIA USED: 2 mL of 1% lidocaine. PROCEDURE DESCRIPTION: The patient was placed in a sitting-upright position. The area below the right scapula was prepared in a sterile fashion and drapes were applied. The area was earlier localized by ultrasound. At the level of the marking of the ultrasound, which is about the eighth intercostal space and tip of the scapula, the area was locally anesthetized. Then a 26-gauge needle was inserted and advanced into the pleural space until the fluid was localized with the needle. Then a small tiny incision was made at the same site, and standard thoracentesis catheter and needle were inserted through the incision towards the pleural space. As the fluid was reached, the catheter was advanced out of the needle, and the needle was pulled out of the pleural space. Freely flowing fluid was removed. The fluid was serosanguineous in nature; and roughly a total of 400 mL of bloody effusion was removed from the right pleural space. No more fluid was drained. Fluid was sent for different diagnostic studies. The catheter was pulled out of the pleural space and chest x-ray showed no evidence of any immediate complications. MMODL / IJN: [id number] /
--- NOTE | 2019-05-21 19:45 | OP ---
OPERATIVE REPORT OPERATION: Left-sided thoracentesis. PREOPERATIVE DIAGNOSIS: Left pleural effusion. POSTOPERATIVE DIAGNOSIS: Left pleural effusion. ANESTHESIA USED: 4 mL of 1% lidocaine. PROCEDURE DESCRIPTION: The patient was placed in a sitting-upright position. The area below the right scapula was prepared in a sterile fashion and drapes were applied. The area of the fluid was earlier localized by ultrasound guidance. At the level of the eighth intercostal space and tip of the scapula, the area was locally anesthetized. Then a small tiny incision was made. I attempted to reach the pocket of pleural effusion with a 26-gauge needle; the distance was too far for the needle to reach the fluid. Then a small tiny incision was made at the site, and went straight to the standard thoracentesis catheter. It was inserted at the same site, which is the eighth intercostal space and tip of the scapula. Advanced into the pleural space until the fluid was obtained. As soon as the fluid was obtained, the catheter was advanced out of the needle and the needle was pulled out of the pleural space. Freely flowing fluid was removed; roughly 850 mL of serosanguineous fluid was removed from the left pleural space. The procedure was well tolerated. No evidence of any immediate complications. Chest x-ray was ordered postoperatively and is pending at the time of this dictation. MMODL / IJN: [id number] /
[2019-05-21] MEDS: ATORVASTATIN 40 MG TAB PO SCH (20:29)
[2019-05-21] MEDS: ACETAMINOPHEN TAB 325 MG TAB PO PRN (20:34)
[2019-05-22 05:51] LABS: Albumin 3.1 g/dL (3.5-5.0); Calcium 7.8 mg/dL (8.4-10.2); HCT 27.4 % (34.0-46.0); HGB 8.3 gm/dL (11.4-16.0); Hypochromasia Marked; MCH 27.6 pg (25.0-35.0); MCHC 30.2 g/dL (31.0-37.0); MCV 91.4 fL (80.0-100.0); Mean Platelet Volume 8.7; Platelet Count 111 k/uL (150-450); Poikilocytosis Slight; Potassium 4.3 mmol/L (3.5-5.1); RDW 15.9 % (11.5-15.5); Total Bilirubin 0.9 mg/dL (0.2-1.3); Total Protein 6.7 g/dL (6.3-8.2); WBC 3.9 k/uL (3.8-10.6)
[2019-05-22] MEDS: LEVOTHYROXINE 137 MCG TAB PO SCH (06:16)
[2019-05-22 06:17] LABS: Band Neutrophils % 1 %; Eosinophils # (M) 0.04 k/uL (0-0.7); Lymphocytes # (M) 0.43 k/uL (1.0-4.8); Monocytes # (M) 0.23 k/uL (0-1.0); Neutrophils % (M) 81 %; Nucleated Red Blood Cells 0 /100 WBC (0-0); Total Cells Counted 100
--- NOTE | 2019-05-22 06:58 | XR ---
EXAMINATION TYPE: XR chest 1V DATE OF EXAM: 05/22/2019 CLINICAL HISTORY: Difficulty breathing progress study. TECHNIQUE: Single AP portable upright view of the chest is obtained. COMPARISON: Chest x-ray from one day earlier and older studies. CT chest May 08, 2019. FINDINGS: Cardiac silhouette size is stable and enlarged. Overlying sternal wires with metallic aort ic valve and cardiac closure device upper portion of heart are all redemonstrated. There are persiste nt small bilateral pleural effusions with associated bibasilar compressive atelectasis and central va scular congestion. No pneumothorax is seen bilaterally. Osseous structures are intact. IMPRESSION: Cardiomegaly with central vascular congestion and small bilateral pleural effusions are a ll redemonstrated. Findings consistent with CHF exacerbation. Slight progression from most recent [facility] st x-ray felt present.
[2019-05-22] MEDS: PANTOPRAZOLE 40 MG TABLET PO SCH (07:39)
[2019-05-22] MEDS: CITALOPRAM HYDROBROMIDE 20 MG TAB PO SCH (07:40)
[2019-05-22] MEDS: AMIODARONE 200 MG TAB PO SCH (07:40)
[2019-05-22] MEDS: APIXABAN 5 MG TAB PO SCH ×2 (08:11→21:16)
--- NOTE | 2019-05-22 08:17 | PN ---
PROGRESS NOTE Mrs. Crabtree is a 58-year-old female, status post aortic valve replacement, who presented with progressive dyspnea and had evidence of pleural effusion, underwent bilateral thoracentesis by Dr. Stockton yesterday. She is feeling much better this morning. Her breathing is much better. She underwent transesophageal echocardiogram because of a question of an echogenic area in the ascending aorta and that turned out to be an artifact. Her aortic valve bioprosthetic is normal functioning and her left ventricular systolic function normal. She continues to be in sinus mechanism. She has no evidence of tachycardia or bradycardia. She continues to be at this time on amiodarone 200 mg daily, Lipitor 40 mg daily. PHYSICAL EXAMINATION: Blood pressure 104/50 with the heart rate in the 50s. LUNGS: Clear with mild minimal decrease in breath sounds at bases. HEART: Regular rate and rhythm. S1, S2. No S3 with systolic ejection murmur at the base. No diastolic murmur. No rub. ABDOMEN: Soft, nontender. Positive bowel sounds. No organomegaly. EXTREMITIES: No edema. LAB DATA: Lab data revealed a hemoglobin of 8.3, BUN and creatinine of 18 and 1.33, which has improved since yesterday. Potassium 4.3. IMPRESSION: 1. Status post bilateral thoracentesis for pleural effusion. 2. Status post aortic valve replacement. 3. Paroxysmal atrial fibrillation remains in sinus mechanism. 4. Hyperlipidemia. 5. Renal failure, improving. RECOMMENDATION: From the cardiac standpoint, I will re-initiate treatment with the Eliquis. Continue the rest of her medical regimen. Follow her renal function. Increase her activity. Hopefully, she can transfer to the telemetry floor and increase her activity. If she remains stable, I expect she should be able to be discharged home in the next 24 hours. MMODL / IJN: [id number] /
--- NOTE | 2019-05-22 10:29 | P.PN ---
Subjective Progress Note Date: 05/22/19 Principal diagnosis: Shortness of breath, bilateral pleural effusions, hypotension, acute kidney injury, pyuria on admission. Previous medical history of aortic stenosis status post bioprosthetic aortic valve replacement 04/30/2019, postoperative atrial fibrillation with rapid ventricular response with amiodarone/Eliquis treatment status post clip ligation of the left atrial appendage, hypertension, hypothyroid, chronic anemia, previous tobacco dependence, and morbid obesity. POD #1 right sided thoracentesis with removal of 400 mL serosanguineous fluid, left sided thoracentesis with removal of 850 mL serosanguineous fluid by Dr. Stockton Status post transesophageal echocardiogram by Dr. Avery with demonstration of normal left ventricular function, normally functioning bioprosthetic aortic valve, mild to moderate mitral regurgitation with moderate tricuspid regurgita tion. The patient's currently sitting up in a recliner in no acute distress. States her breathing has significantly improved after her thoracentesis performed yesterday. She does still complain of mild right-sided chest pain which she describes is a twinge with deep inspiration. Remains in sinus rhythm to sinus bradycardia with stable blood pressure. She has been weaned off of her oxygen. No new complaints. Objective - Vital Signs Vital signs: Vital Signs Temp 97.9 F 05/22/19 08:00 Pulse 62 05/22/19 09:00 Resp 22 05/22/19 09:00 BP 103/51 05/22/19 09:00 Pulse Ox 94 L 05/22/19 09:00 Intake & Output 05/21/19 05/22/19 05/22/19 18:59 06:59 18:59 Intake Total 1020 480 40 Output Total 100 600 Balance 920 480 -560 Weight 106.3 kg Intake: IV 1020 480 40 Albumin Human 5% 250 ml 500 In Empty Bag 1 bag @ 250 mls/hr IVPB ONCE STA Rx#: [id number] Sodium Chloride 0.9% 1, 480 000 ml @ 100 mls/hr IV . Q10H STA Rx#:[id number] Sodium Chloride 0.9% 1, 40 480 40 000 ml @ 40 mls/hr IV . Q24H ALTRELL Rx#:[id number] Output: Urine 100 600 Other: Voiding Method Bedside Commode # Voids 0 1 - Constitutional General appearance: Present: cooperative, no acute distress, obese - Respiratory Details: Lungs sounds diminished bilaterally. Respirations even, nonlabored. Currently on room air with oxygen saturation 95%. Only able to achieve 500 mL on her incentive spirometry. - Cardiovascular Details: S1, S2 present. Regular rate and rhythm, sinus rhythm to sinus bradycardia on telemetry. Sternum stable. Palpable peripheral pulses bilaterally. No edema present. No calf pain or tenderness noted. Heart hugger in place with patient demonstrating appropriate use. - Gastrointestinal Gastrointestinal Comment(s): Abdomen soft, nontender, nondistended. Active bowel sounds 4 quadrants. Tolerating diet. - Genitourinary Genitourinary Comment(s): Continues to void. - Integumentary Integumentary Comment(s): Skin is warm and dry with evidence of good perfusion. Anterior chest incision well approximated without drainage. - Neurologic Neurologic: Present: CNII-XII intact - Musculoskeletal Musculoskeletal: Present: gait normal, strength equal bilaterally - Psychiatric Psychiatric: Present: A&O x's 3, appropriate affect, intact judgment & insight - Allied health notes Allied health notes reviewed: nursing - Labs CBC & Chem 7: 05/22/19 05:13 05/22/19 05:13 Labs: Abnormal Lab Results - Last 24 Hours (Table) 05/21/19 05/22/19 05/22/19 Range/Units 12:55 05:13 05:13 RBC 3.00 L (3.80-5.40) m/uL Hgb 8.3 L (11.4-16.0) gm/dL Hct 27.4 L (34.0-46.0) % MCHC 30.2 L (31.0-37.0) g/dL RDW 15.9 H (11.5-15.5) % Plt Count 111 L (150-450) k/uL Lymphocytes # (Manual) 0.43 L (1.0-4.8) k/uL BUN 18 H (7-17) mg/dL Creatinine 1.33 H (0.52-1.04) mg/dL Plasma Lactic Acid Norm 2.5 H* (0.7-2.0) mmol/L Calcium 7.8 L (8.4-10.2) mg/dL Albumin 3.1 L (3.5-5.0) g/dL Microbiology - Last 24 Hours (Table) 05/21/19 11:20 Gram Stain - Preliminary Pleural Fluid Body Fluid Culture - Preliminary 05/21/19 02:07 Blood Culture - Preliminary Blood No Growth after 24 hours 05/21/19 14:57 Gram Stain - Preliminary Pleural Fluid Body Fluid Culture - Preliminary 05/21/19 14:57 Anaerobic Culture - Preliminary Pleural Fluid 05/21/19 11:20 Anaerobic Culture - Preliminary Pleural Fluid 05/21/19 02:41 Urine Culture - Preliminary Urine,Clean Catch - Imaging and Cardiology Chest x-ray: report reviewed, image reviewed Assessment and Plan Assessment: 1. Shortness of breath, status post right and left thoracentesis 2. Hypotension on admission 3. Acute kidney injury 4. Pyuria without fever, normal white blood cell count 5. History of aortic stenosis, status post bioprosthetic aortic valve replacement 04/30/2019 6. Postoperative A. fib with RVR, status post clip ligation of the left atrial appendage 7. History of hypertension 8. Hypothyroid, Synthroid was increased by primary care physician after last admission 9. Chronic anemia 10. Previous tobacco dependence 11. GERD 12. Vitamin D deficiency 13. Fatty liver 14. Morbid obesity 15. Depression Plan: 1. Continue amiodarone until May 29. Continue Eliquis per cardiology. Continue Lipitor. Recommend resuming Lopressor, will defer to cardiology due to sinus bradycardia with heart rate in the 50s. 2. Increase activity, ambulate in hallway. 3. Encourage incentive spirometry use 10 times every hour while awake. 4. Will monitor labs and x-rays. 5. May transfer to cardiac stepdown unit from our standpoint. Likely should be discharged to home in the next 24-48 hours. 6. More recommendations to follow. Time with Patient: Greater than 30
--- NOTE | 2019-05-22 11:42 | P.PN ---
Subjective Patient is seen in follow for acute kidney injury. Renal function is improving. Creatinine 1.33 today. Dyspnea is much better today. She underwent bilateral thoracentesis on May 21. Urine output is good. No vomiting or diarrhea. Vital signs are stable. General: The patient appeared well nourished and normally developed. HEENT: Head exam is unremarkable. Neck is without jugular venous distension. LUNGS: Lungs are clear to auscultation and percussion. Breath sounds decreased. HEART: Rate and Rhythm are regular. First and second heart sounds normal. No murmurs, rubs or gallops. ABDOMEN: Abdominal exam reveals normal bowel sounds. Non-tender and non- distended. No evidence of peritonitis. EXTREMITITES: No clubbing, cyanosis, or edema. Objective - Vital Signs Vital signs: Vital Signs Temp 97.9 F 05/22/19 08:00 Pulse 62 05/22/19 10:00 Resp 15 05/22/19 10:00 BP 105/51 05/22/19 10:00 Pulse Ox 95 05/22/19 10:00 Intake & Output 05/21/19 05/22/19 05/22/19 18:59 06:59 18:59 Intake Total 1020 480 40 Output Total 100 600 Balance 920 480 -560 Weight 106.3 kg 104.4 kg Intake: IV 1020 480 40 Albumin Human 5% 250 ml 500 In Empty Bag 1 bag @ 250 mls/hr IVPB ONCE STA Rx#: [id number] Sodium Chloride 0.9% 1, 480 000 ml @ 100 mls/hr IV . Q10H STA Rx#:[id number] Sodium Chloride 0.9% 1, 40 480 40 000 ml @ 40 mls/hr IV . Q24H LATRELL Rx#:[id number] Output: Urine 100 600 Other: Voiding Method Bedside Commode # Voids 0 1 - Labs CBC & Chem 7: 05/22/19 05:13 05/22/19 05:13 Labs: Abnormal Lab Results - Last 24 Hours (Table) 05/21/19 05/22/19 05/22/19 Range/Units 12:55 05:13 05:13 RBC 3.00 L (3.80-5.40) m/uL Hgb 8.3 L (11.4-16.0) gm/dL Hct 27.4 L (34.0-46.0) % MCHC 30.2 L (31.0-37.0) g/dL RDW 15.9 H (11.5-15.5) % Plt Count 111 L (150-450) k/uL Lymphocytes # (Manual) 0.43 L (1.0-4.8) k/uL BUN 18 H (7-17) mg/dL Creatinine 1.33 H (0.52-1.04) mg/dL Plasma Lactic Acid Norm 2.5 H* (0.7-2.0) mmol/L Calcium 7.8 L (8.4-10.2) mg/dL Albumin 3.1 L (3.5-5.0) g/dL Microbiology - Last 24 Hours (Table) 05/21/19 11:20 Gram Stain - Preliminary Pleural Fluid Body Fluid Culture - Preliminary 05/21/19 02:07 Blood Culture - Preliminary Blood No Growth after 24 hours 05/21/19 14:57 Gram Stain - Preliminary Pleural Fluid Body Fluid Culture - Preliminary 05/21/19 14:57 Anaerobic Culture - Preliminary Pleural Fluid 05/21/19 11:20 Anaerobic Culture - Preliminary Pleural Fluid 05/21/19 02:41 Urine Culture - Preliminary Urine,Clean Catch Assessment and Plan Plan: Assessment: 1. Acute kidney injury secondary to ischemic ATN secondary to hypotension as well as component of cardiorenal syndrome. Baseline creatinine is near 1 and peaked at 1.54 this admission - 1.33 today. 2. Dyspnea secondary to volume overload. Patient had bilateral pleural effusions and underwent thoracentesis on May 21. 3. Status post aortic valve replacement on 04/30/2019. 4. Moderate mitral and tricuspid regurgitation. 5. Paroxysmal A. fib. 6. Pyuria. Urine culture pending. Plan: Start Lasix 40 mg orally once daily. Avoid nephrotoxins. Continue to monitor renal function and urine output.
[2019-05-22] MEDS: FUROSEMIDE 40 MG TAB PO SCH (12:12)
--- NOTE | 2019-05-22 12:48 | P.PN ---
Subjective Progress Note Date: 05/22/19 Principal diagnosis: Bilateral pleural effusions, suspect diastolic congestive heart failure. This is a 58-year-old female with history of aortic valve stenosis and bioprosthetic aortic valve replacement on 04/30/2019. Postoperatively the patient had atrial fibrillation with RVR, she also had many other comorbidities including COPD with FEV1 in the range of 64%, chronic anemia, hypothyroidism, hypertension, fatty liver, morbid obesity, and depression. Over the last few days, the patient has been complaining of shortness of breath and right-sided pleuritic chest pain, apparently she was seen by Dr. Weller, and she was scheduled to have thoracentesis done today. However yesterday the patient was feeling worse, she was initially seen in the ER at [facility], and arrangements were made to transfer the patient to [facility]. Considering the abnormal chest x-ray and considering the bilateral pleural effusion, I was asked to see the patient on consultation. Right-sided thoracentesis was done, 400 mL of serosanguineous fluid removed from the right pleural space, and I plan to proceed with left sided thoracentesis either later today or tomorrow morning. Upon presentation the patient was noted to be hypotensive, received fluid boluses, placed on BiPAP, and transferred to [facility]. Her creatinine was noted to be elevated at 1.47 she had a relatively normal WBC count, and she was seen by cardiology on consultation, had a transthoracic echo was abnormal, TREY was performed, there was evidence of dilated left atrium, normal appearance of the bioprosthetic aortic valve and appearance of the ascending aorta small pericardial effusion was noted, mild to moderate mitral and moderate tricuspid regurgitation noted. No shunt was noted across the intra-atrial septum. Reevaluated today on 05/22/2019, patient is feeling much per her today, actually she felt much per her yesterday after both thoracentesis procedures were done one on the right side and one on the left side. Patient denies any chest pain, no cough no wheezing no fever no chills no hemoptysis. Feeling great overall compared to how she felt yesterday. CBC is relatively normal hemoglobin however is 8.3 electrodes are normal creatinine is 1.33 today, improving compared to the last 2 days. Objective - Vital Signs Vital signs: Vital Signs Temp 97.9 F 05/22/19 08:00 Pulse 62 05/22/19 10:00 Resp 15 05/22/19 10:00 BP 105/51 05/22/19 10:00 Pulse Ox 95 05/22/19 10:00 Intake & Output 05/21/19 05/22/19 05/22/19 18:59 06:59 18:59 Intake Total 1020 480 40 Output Total 100 600 Balance 920 480 -560 Weight 106.3 kg 104.4 kg Intake: IV 1020 480 40 Albumin Human 5% 250 ml 500 In Empty Bag 1 bag @ 250 mls/hr IVPB ONCE STA Rx#: [id number] Sodium Chloride 0.9% 1, 480 000 ml @ 100 mls/hr IV . Q10H STA Rx#:[id number] Sodium Chloride 0.9% 1, 40 480 40 000 ml @ 40 mls/hr IV . Q24H LATRELL Rx#:[id number] Output: Urine 100 600 Other: Voiding Method Bedside Commode # Voids 0 1 - Exam General: Revealed a 58-year-old female in no distress, pleasant. Head: Atraumatic, normocephalic. HEENT: PERRLA, EOMI, no icterus. Moist mucous membranes. Neck reveals no JVD, carotid bruits, or thyromegaly. CHEST EXAMINATION: Symmetrical chest expansion, good breath sound bilaterally no crackles or rhonchi or wheezes. CARDIAC: Irregular irregular rhythm. Normal S1, S2 with no gallops. 2/6 systolic murmur thought the precordium. ABDOMEN: Obese, Soft. Bowel sounds normal. No organomegaly. Extremities: 1+ edema. No clubbing or cyanosis. Neurologically alert oriented 3, no gross focal neurologic deficits. Skin: No rash or skin lesions. Psychiatric normal mood, affect and normal mental status examination. Musculoskeletal: No deformities, normal range of motion. - Labs CBC & Chem 7: 05/22/19 05:13 05/22/19 05:13 Labs: Abnormal Lab Results - Last 24 Hours (Table) 05/21/19 05/22/19 05/22/19 Range/Units 12:55 05:13 05:13 RBC 3.00 L (3.80-5.40) m/uL Hgb 8.3 L (11.4-16.0) gm/dL Hct 27.4 L (34.0-46.0) % MCHC 30.2 L (31.0-37.0) g/dL RDW 15.9 H (11.5-15.5) % Plt Count 111 L (150-450) k/uL Lymphocytes # (Manual) 0.43 L (1.0-4.8) k/uL BUN 18 H (7-17) mg/dL Creatinine 1.33 H (0.52-1.04) mg/dL Plasma Lactic Acid Norm 2.5 H* (0.7-2.0) mmol/L Calcium 7.8 L (8.4-10.2) mg/dL Albumin 3.1 L (3.5-5.0) g/dL Microbiology - Last 24 Hours (Table) 05/21/19 02:41 Urine Culture - Final Urine,Clean Catch 05/21/19 11:20 Gram Stain - Preliminary Pleural Fluid Body Fluid Culture - Preliminary 05/21/19 02:07 Blood Culture - Preliminary Blood No Growth after 24 hours 05/21/19 14:57 Gram Stain - Preliminary Pleural Fluid Body Fluid Culture - Preliminary 05/21/19 14:57 Anaerobic Culture - Preliminary Pleural Fluid 05/21/19 11:20 Anaerobic Culture - Preliminary Pleural Fluid Assessment and Plan Assessment: Impression: 1 bilateral pleural effusions, most likely secondary to diastolic congestive heart failure 2 acute kidney injury secondary to ATN, possibly cardiorenal in nature. 3 status post aortic valve replacement on 04/30/2019. 4 postoperative atrial fibrillation and RVR 5 paroxysmal atrial fibrillation 6 hypothyroidism 7 GERD 8 morbid obesity 9 fatty liver 10 status post right and left sided thoracentesis on 05/21/2019, both sides had serosanguineous fluid, cultures are pending. Cytology is pending. Recommendation: Continue present supportive care measures Continue diuretics. Continue to monitor renal status, today seems to be improving. Transfer patient out of the ICU to a cardiac bed with telemetry. Continue bronchodilators and incentive spirometry. Consider discharge planning in the next 24 hours. Time with Patient: Less than 30
[2019-05-22] MEDS ORDERED: DEXTROSE 5% IN WATER 100 ML with AMIODARONE 150 MG IV ONE (14:32)
[2019-05-22] MEDS ORDERED: BENZOCAINE/MENTHOL LOZENG 1 EACH LOZENGE MUCOUS MEM PRN (21:14)
[2019-05-22] MEDS: ATORVASTATIN 40 MG TAB PO SCH (21:16)
[2019-05-22] MEDS: ACETAMINOPHEN TAB 325 MG TAB PO PRN (21:17)
[2019-05-23 05:01] LABS: Anisocytosis Slight; Basophils % (A) 1 %; Eosinophils # (A) 0.1 k/uL (0-0.7); Eosinophils % (A) 2 %; HCT 27.7 % (34.0-46.0); Hypochromasia Marked; Lymphocytes # (A) 1.2 k/uL (1.0-4.8); Lymphocytes % (A) 35 %; MCH 28.2 pg (25.0-35.0); MCHC 32.5 g/dL (31.0-37.0); MCV 86.8 fL (80.0-100.0); Mean Platelet Volume 8.4; Monocytes # (A) 0.1 k/uL (0-1.0); Monocytes % (A) 3 %; Neutrophils # (A) 1.9 k/uL (1.3-7.7); Neutrophils % (A) 57 %; Platelet Count 132 k/uL (150-450); Poikilocytosis Slight; RBC 3.19 m/uL (3.80-5.40); RDW 16.1 % (11.5-15.5); WBC 3.4 k/uL (3.8-10.6)
[2019-05-23 05:09] LABS: Calcium 8.5 mg/dL (8.4-10.2); Magnesium 2.2 mg/dL (1.6-2.3); Potassium 4.1 mmol/L (3.5-5.1)
[2019-05-23] MEDS: LEVOTHYROXINE 137 MCG TAB PO SCH (06:20)
[2019-05-23] MEDS: PANTOPRAZOLE 40 MG TABLET PO SCH (07:04)
--- NOTE | 2019-05-23 08:00 | PN ---
PROGRESS NOTE Mrs. Crabtree is a 58-year-old female status post aortic valve replacement who presented with symptoms of progressive dyspnea, was found to have bilateral pleural effusion, underwent thoracentesis. She is feeling much better today. Her breathing is better. She is denying any chest pain. She denies any dizziness or palpitation. She denies any nausea. She continued to be in sinus mechanism without any episode of recurrent atrial fibrillation. She continues to be at this point on full amiodarone 200 mg daily, Eliquis 5 mg twice a day, Lipitor 40 mg daily, furosemide 40 mg daily and Protonix. PHYSICAL EXAMINATION: Blood pressure 114/50 with the heart rate in the 60s. LUNGS: With no wheezes or rales with improved air exchange at the bases. HEART: Regular rate and rhythm. S1, S2. No S3 with systolic murmur, ejection type 2/6. No diastolic murmur. No rub. ABDOMEN: Soft, nontender. EXTREMITIES: No significant edema. LAB DATA: Labs data revealed a hemoglobin of 9, BUN and creatinine 19 and 1.05. IMPRESSION: 1. Symptoms of progressive dyspnea with bilateral pleural effusion, status post aortic valve replacement. 2. Aortic valve replacement. 3. Acute kidney injury, improving. 4. Episode of paroxysmal atrial fibrillation remains in sinus mechanism. 5. Hyperlipidemia. RECOMMENDATION: From the cardiac standpoint, we will continue present therapy. Increase her level of activity. If she remains stable I would expect she should be able to be discharged home today and follow up as an outpatient with Dr. Sapna Montgomery. MMODL / IJN: [id number] /
[2019-05-23] MEDS: FUROSEMIDE 40 MG TAB PO SCH (08:35)
[2019-05-23] MEDS: CITALOPRAM HYDROBROMIDE 20 MG TAB PO SCH (08:35)
[2019-05-23] MEDS: AMIODARONE 200 MG TAB PO SCH (08:36)
[2019-05-23] MEDS: APIXABAN 5 MG TAB PO SCH (08:36)
--- NOTE | 2019-05-23 09:14 | P.PN ---
Subjective Progress Note Date: 05/23/19 Principal diagnosis: Shortness of breath, bilateral pleural effusions, hypotension, acute kidney injury, pyuria on admission. Previous medical history of aortic stenosis status post bioprosthetic aortic valve replacement 04/30/2019, postoperative atrial fibrillation with rapid ventricular response with amiodarone/Eliquis treatment status post clip ligation of the left atrial appendage, hypertension, hypothyroid, chronic anemia, previous tobacco dependence, and morbid obesity. POD #2 right sided thoracentesis with removal of 400 mL serosanguineous fluid, left sided thoracentesis with removal of 850 mL serosanguineous fluid by Dr. Stockton Status post transesophageal echocardiogram by Dr. Avery with demonstration of normal left ventricular function, normally functioning bioprosthetic aortic valve, mild to moderate mitral regurgitation with moderate tricuspid regurgita tion. The patient's currently sitting up in bed in the intensive care unit in no acute distress. States her breathing has significantly improved after her thoracentesis. She does still complain of mild right-sided chest pain. Remains in sinus rhythm to sinus bradycardia with stable blood pressure. 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 Objective - Vital Signs Vital signs: Vital Signs Temp 98.2 F 05/23/19 04:00 Pulse 63 05/23/19 04:00 Resp 13 05/23/19 04:00 BP 114/54 05/23/19 04:00 Pulse Ox 92 L 05/23/19 04:00 Intake & Output 05/22/19 05/23/19 05/23/19 18:59 06:59 18:59 Intake Total 540 200 Output Total 1175 950 Balance -635 -750 Weight 104.4 kg Intake: IV 40 Sodium Chloride 0.9% 1, 40 000 ml @ 40 mls/hr IV . Q24H [facility] Rx#:[id number] Oral 500 200 Output: Urine 1175 950 Other: Voiding Method Toilet # Voids 1 1 # Bowel Movements 1 - Constitutional General appearance: Present: cooperative, no acute distress, obese - Respiratory Details: Lungs sounds diminished bilaterally. Respirations even, nonlabored. Currently on room air with oxygen saturation 92%. Able to achieve 1000 mL on her incentive spirometry. Strong, nonproductive cough. - Cardiovascular Details: S1, S2 present. Regular rate and rhythm, sinus rhythm with occasional PACs on telemetry. Sternum stable. Palpable peripheral pulses bilaterally. No edema present. No calf pain or tenderness noted. Heart hugger in place with patient demonstrating appropriate use. - Gastrointestinal Gastrointestinal Comment(s): Abdomen soft, nontender, nondistended. Active bowel sounds 4 quadrants. Tolerating diet. Positive bowel movement. - Genitourinary Genitourinary Comment(s): Continues to void. - Integumentary Integumentary Comment(s): Skin is warm and dry with evidence of good perfusion. Anterior chest incision well approximated without drainage. - Neurologic Neurologic: Present: CNII-XII intact - Musculoskeletal Musculoskeletal: Present: gait normal, strength equal bilaterally - Psychiatric Psychiatric: Present: A&O x's 3, appropriate affect, intact judgment & insight - Allied health notes Allied health notes reviewed: nursing - Labs CBC & Chem 7: 05/23/19 04:33 05/23/19 04:33 Labs: Abnormal Lab Results - Last 24 Hours (Table) 05/23/19 05/23/19 Range/Units 04:33 04:33 WBC 3.4 L (3.8-10.6) k/uL RBC 3.19 L (3.80-5.40) m/uL Hgb 9.0 L (11.4-16.0) gm/dL Hct 27.7 L (34.0-46.0) % RDW 16.1 H (11.5-15.5) % Plt Count 132 L (150-450) k/uL BUN 19 H (7-17) mg/dL Creatinine 1.05 H (0.52-1.04) mg/dL Microbiology - Last 24 Hours (Table) 05/21/19 02:07 Blood Culture - Preliminary Blood No Growth after 48 hours 05/21/19 14:57 Gram Stain - Preliminary Pleural Fluid Body Fluid Culture - Preliminary 05/21/19 02:41 Urine Culture - Final Urine,Clean Catch 05/21/19 11:20 Gram Stain - Preliminary Pleural Fluid Body Fluid Culture - Preliminary - Imaging and Cardiology Chest x-ray: image reviewed Assessment and Plan Assessment: 1. Shortness of breath, status post right and left thoracentesis 2. Hypotension on admission, resolved 3. Acute kidney injury, resolving 4. Pyuria without fever, normal white blood cell count, culture negative 5. History of aortic stenosis, status post bioprosthetic aortic valve replacement 04/30/2019 6. Postoperative A. fib with RVR, status post clip ligation of the left atrial appendage 7. History of hypertension 8. Hypothyroid, Synthroid was increased by primary care physician after last admission 9. Chronic anemia 10. Previous tobacco dependence 11. GERD 12. Vitamin D deficiency 13. Fatty liver 14. Morbid obesity 15. Depression Plan: 1. Continue amiodarone until May 29. Continue Eliquis per cardiology. Continue Lipitor. Recommend resuming Lopressor, will defer to cardiology due to sinus bradycardia with heart rate in the 50s. 2. Increase activity, ambulate in hallway. Patient should shower daily. 3. Encourage incentive spirometry use 10 times every hour while awake. 4. Transfer orders placed yesterday for 3 S. cardiac stepdown, may transfer when bed available. 5. Should be discharged to home today from our standpoint. Appointment made to see Dr. Hines June 06, patient is aware she can see the nurse practitioners in the office at any day up until then. Time with Patient: Greater than 30
--- NOTE | 2019-05-23 09:15 | XR ---
EXAMINATION TYPE: XR chest 1V DATE OF EXAM: 05/23/2019 COMPARISON: 05/22/2019 INDICATION: Shortness of breath TECHNIQUE: Single frontal view of the chest is obtained. FINDINGS: The heart size is mildly prominent. Sternotomy wires from prior CABG are present. Pulmonary vasculatu re is normal. Previous infiltrate at the lung bases has resolved.. IMPRESSION: 1. No acute pulmonary process. 2. Mild cardiomegaly, stable
--- NOTE | 2019-05-23 11:17 | P.PN ---
Subjective Patient is seen in follow for acute kidney injury. Renal function is improving. Creatinine 1.05 today. Dyspnea is much better since admission. She underwent bilateral thoracentesis on May 21. Urine output is good. No vomiting or diarrhea. Vital signs are stable. General: The patient appeared well nourished and normally developed. HEENT: Head exam is unremarkable. Neck is without jugular venous distension. LUNGS: Lungs are clear to auscultation and percussion. Breath sounds decreased. HEART: Rate and Rhythm are regular. First and second heart sounds normal. No murmurs, rubs or gallops. ABDOMEN: Abdominal exam reveals normal bowel sounds. Non-tender and non- distended. No evidence of peritonitis. EXTREMITITES: No clubbing, cyanosis, or edema. Objective - Vital Signs Vital signs: Vital Signs Temp 98.1 F 05/23/19 08:00 Pulse 61 05/23/19 08:00 Resp 16 05/23/19 08:00 BP 118/56 05/23/19 08:00 Pulse Ox 91 L 05/23/19 08:00 Intake & Output 05/22/19 05/23/19 05/23/19 18:59 06:59 18:59 Intake Total 540 200 Output Total 1175 950 400 Balance -635 -750 -400 Weight 104.4 kg Intake: IV 40 Sodium Chloride 0.9% 1, 40 000 ml @ 40 mls/hr IV . Q24H [facility] Rx#:[id number] Oral 500 200 Output: Urine 1175 950 400 Other: Voiding Method Toilet # Voids 1 1 # Bowel Movements 1 - Labs CBC & Chem 7: 05/23/19 04:33 05/23/19 04:33 Labs: Abnormal Lab Results - Last 24 Hours (Table) 05/23/19 05/23/19 Range/Units 04:33 04:33 WBC 3.4 L (3.8-10.6) k/uL RBC 3.19 L (3.80-5.40) m/uL Hgb 9.0 L (11.4-16.0) gm/dL Hct 27.7 L (34.0-46.0) % RDW 16.1 H (11.5-15.5) % Plt Count 132 L (150-450) k/uL BUN 19 H (7-17) mg/dL Creatinine 1.05 H (0.52-1.04) mg/dL Microbiology - Last 24 Hours (Table) 05/21/19 02:07 Blood Culture - Preliminary Blood No Growth after 48 hours 05/21/19 14:57 Gram Stain - Preliminary Pleural Fluid Body Fluid Culture - Preliminary 05/21/19 02:41 Urine Culture - Final Urine,Clean Catch 05/21/19 11:20 Gram Stain - Preliminary Pleural Fluid Body Fluid Culture - Preliminary Assessment and Plan Plan: Assessment: 1. Acute kidney injury secondary to ischemic ATN secondary to hypotension as well as component of cardiorenal syndrome. Baseline creatinine is near 1 and peaked at 1.54 this admission - 1.05 today. 2. Dyspnea secondary to volume overload. Patient had bilateral pleural effusions and underwent thoracentesis on May 21. 3. Status post aortic valve replacement on 04/30/2019. 4. Moderate mitral and tricuspid regurgitation. 5. Paroxysmal A. fib. Plan: Maintain Lasix 40 mg orally once daily. Avoid nephrotoxins. Continue to monitor renal function and urine output. Stable to discharge home from nephrology standpoint. I advised her to follow a low-salt diet and to monitor her weight closely at home. Repeat BMP 2 to 3 days postdischarge and follow up outpatient in the next 1-2 weeks.
--- NOTE | 2019-05-23 11:59 | P.PN ---
Subjective Progress Note Date: 05/23/19 Principal diagnosis: Bilateral pleural effusions, suspect diastolic congestive heart failure. This is a 58-year-old female with history of aortic valve stenosis and bioprosthetic aortic valve replacement on 04/30/2019. Postoperatively the patient had atrial fibrillation with RVR, she also had many other comorbidities including COPD with FEV1 in the range of 64%, chronic anemia, hypothyroidism, hypertension, fatty liver, morbid obesity, and depression. Over the last few days, the patient has been complaining of shortness of breath and right-sided pleuritic chest pain, apparently she was seen by Dr. Weller, and she was scheduled to have thoracentesis done today. However yesterday the patient was feeling worse, she was initially seen in the ER at [facility], and arrangements were made to transfer the patient to [facility]. Considering the abnormal chest x-ray and considering the bilateral pleural effusion, I was asked to see the patient on consultation. Right-sided thoracentesis was done, 400 mL of serosanguineous fluid removed from the right pleural space, and I plan to proceed with left sided thoracentesis either later today or tomorrow morning. Upon presentation the patient was noted to be hypotensive, received fluid boluses, placed on BiPAP, and transferred to [facility]. Her creatinine was noted to be elevated at 1.47 she had a relatively normal WBC count, and she was seen by cardiology on consultation, had a transthoracic echo was abnormal, TREY was performed, there was evidence of dilated left atrium, normal appearance of the bioprosthetic aortic valve and appearance of the ascending aorta small pericardial effusion was noted, mild to moderate mitral and moderate tricuspid regurgitation noted. No shunt was noted across the intra-atrial septum. Reevaluated today on 05/22/2019, patient is feeling much per her today, actually she felt much per her yesterday after both thoracentesis procedures were done one on the right side and one on the left side. Patient denies any chest pain, no cough no wheezing no fever no chills no hemoptysis. Feeling great overall compared to how she felt yesterday. CBC is relatively normal hemoglobin however is 8.3 electrodes are normal creatinine is 1.33 today, improving compared to the last 2 days. Reevaluated today on 05/23/2019, patient is in the ICU, but she is doing great, he is actually an overflow. Asymptomatic, feels great, denies any cough no wheezing no shortness of breath. Patient is being considered for discharge home today. Chest x-ray is reassuring, no evidence of CHF and no evidence of pleural effusions. Objective - Vital Signs Vital signs: Vital Signs Temp 98.1 F 05/23/19 08:00 Pulse 61 05/23/19 08:00 Resp 16 05/23/19 08:00 BP 118/56 05/23/19 08:00 Pulse Ox 91 L 05/23/19 08:00 Intake & Output 05/22/19 05/23/19 05/23/19 18:59 06:59 18:59 Intake Total 540 200 Output Total 1175 950 400 Balance -635 -750 -400 Weight 104.4 kg Intake: IV 40 Sodium Chloride 0.9% 1, 40 000 ml @ 40 mls/hr IV . Q24H [facility] Rx#:[id number] Oral 500 200 Output: Urine 1175 950 400 Other: Voiding Method Toilet # Voids 1 1 # Bowel Movements 1 - Exam General: Revealed a 58-year-old female in no distress, pleasant. Head: Atraumatic, normocephalic. HEENT: PERRLA, EOMI, no icterus. Moist mucous membranes. Neck reveals no JVD, carotid bruits, or thyromegaly. CHEST EXAMINATION: Symmetrical chest expansion, good breath sound bilaterally no crackles or rhonchi or wheezes. CARDIAC: Irregular irregular rhythm. Normal S1, S2 with no gallops. 2/6 systolic murmur thought the precordium. ABDOMEN: Obese, Soft. Bowel sounds normal. No organomegaly. Extremities: 1+ edema. No clubbing or cyanosis. Neurologically alert oriented 3, no gross focal neurologic deficits. Skin: No rash or skin lesions. Psychiatric normal mood, affect and normal mental status examination. Musculoskeletal: No deformities, normal range of motion. - Labs CBC & Chem 7: 05/23/19 04:33 05/23/19 04:33 Labs: Abnormal Lab Results - Last 24 Hours (Table) 05/23/19 05/23/19 Range/Units 04:33 04:33 WBC 3.4 L (3.8-10.6) k/uL RBC 3.19 L (3.80-5.40) m/uL Hgb 9.0 L (11.4-16.0) gm/dL Hct 27.7 L (34.0-46.0) % RDW 16.1 H (11.5-15.5) % Plt Count 132 L (150-450) k/uL BUN 19 H (7-17) mg/dL Creatinine 1.05 H (0.52-1.04) mg/dL Microbiology - Last 24 Hours (Table) 05/21/19 11:20 Gram Stain - Preliminary Pleural Fluid Body Fluid Culture - Preliminary 05/21/19 02:07 Blood Culture - Preliminary Blood No Growth after 48 hours 05/21/19 14:57 Gram Stain - Preliminary Pleural Fluid Body Fluid Culture - Preliminary 05/21/19 02:41 Urine Culture - Final Urine,Clean Catch Assessment and Plan Assessment: Impression: 1 bilateral pleural effusions, most likely secondary to diastolic congestive heart failure 2 acute kidney injury secondary to ATN, possibly cardiorenal in nature. Resolved. 3 status post aortic valve replacement on 04/30/2019. 4 postoperative atrial fibrillation and RVR 5 paroxysmal atrial fibrillation 6 hypothyroidism 7 GERD 8 morbid obesity 9 fatty liver 10 status post right and left sided thoracentesis on 05/21/2019, both sides had serosanguineous fluid, cytology is negative. Cultures are negative so far. Recommendation: Continue present supportive care measures Continue diuretics. Agree with discharge planning today, follow up on outpatient basis. Time with Patient: Less than 30
[2019-05-23 12:36] VITALS: BP 124/54; PULSE 69; RESP 24; TEMP 97.9
--- NOTE | 2019-05-23 12:43 | P.PN ---
Subjective Progress Note Date: 05/22/19 Principal diagnosis: Bilateral pleural effusion Paroxysmal Atrial fibrillation Patient is a 58-year-old female with a known history of aortic valve replacement on 04/30/2019 due to aortic stenosis, hypertension, hypothyroidism, fatty liver And morbid obesity with a BMI 37.8 initially presented to [facility] with complaints of worsening shortness of breath for the past 2 weeks and increased severity last night. Patient was also hypotensive which made her to go to ER. Patient was discharged from the hospital on 05/05/2019 after surgery. She presented to ER on 05/08/2019 due to palpitations and was admitted to observation unit due to atrial fibrillation. Patient was sent back with sinus rhythm and was being continued on metoprolol and amiodarone. Patient was seen by Dr. Weller in the pulmonary clinic where he had chest x-ray due to worsening short of breath which showed pleural effusion and is supposed to get thoracentesis on 05/20/2019. Patient presented to hospital due to worsening symptoms. Patient was found to have elevated lactic acid level. Creatinine went up to 1.47. Chest x-ray showed similar small to moderate left pleural effusion with adjacent atelectasis and/or consolidation. Slight increased small to moderate right pleural effusion. EKG showed normal sinus rhythm. Troponin 0.110 and 0.102 2-D echocardiogram showed ejection fraction 50-55%. Right ventricular systolic pressure is 27.65 mmHg. Echodense lesion in the ARMENIAN F tract could be artifact, consider TREY if clinically indicated. Urinalysis showed likely contaminant sample. Patient has been afebrile. No leukocytosis. Patient was seen with pulmonary and is status post right-sided thoracentesis with 400 mL fluid removal. Patient was given a dose of Lasix. Patient otherwise denied any complaints of cough or sputum production. No chest pain. No nausea vomiting or diarrhea. No increased leg swelling. No dysuria or hematuria. 820 11/04/2018 Patient says that her breathing status is much improved after bilateral thoracentesis. Currently on Lasix. Patient is able to sit in the chair comfortably. No complaints of chest pain. Patient had transesophageal echo cardiac was done which showed no new pathology. Otherwise patient had an episode of A. fib with RVR this morning and converted to sinus rhythm spontaneously. No complaint of chest shortness. No fever no chills. Saturating well on room air. No cough or sputum production. All other review of systems negative except above Current medications reviewed Objective - Vital Signs Vital signs: Vital Signs Temp 97.9 F 05/22/19 16:00 Pulse 66 05/22/19 16:00 Resp 22 05/22/19 16:00 BP 113/57 05/22/19 16:00 Pulse Ox 92 L 05/22/19 16:00 Intake & Output 05/22/19 05/22/19 05/23/19 06:59 18:59 06:59 Intake Total 480 540 Output Total 1175 Balance 480 -635 Weight 104.4 kg Intake: IV 480 40 Sodium Chloride 0.9% 1, 480 40 000 ml @ 40 mls/hr IV . Q24H [facility] Rx#:[id number] Oral 500 Output: Urine 1175 Other: Voiding Method Bedside Commode # Voids 1 # Bowel Movements 1 - Exam PHYSICAL EXAMINATION: Patient is lying in the bed comfortably, no acute distress, awake alert and oriented.. HEENT: Normocephalic. Neck is supple. Pupils reactive. Nostrils clear. Oral cavity is moist. Ears reveal no drainage. Neck reveals no JVD, carotid bruits, or thyromegaly. CHEST EXAMINATION: Trachea is central. Surgical site healing well. Symmetrical expansion. Bibasilar crackles positive.. Otherwise Lung mathur clear to auscultation and percussion. CARDIAC: Normal S1, S2 with no gallops. No murmurs ABDOMEN: Soft. Bowel sounds normal. No organomegaly. No abdominal bruits. Extremities: 1+ edema. No clubbing or cyanosis Neurologically awake, alert, oriented x3 with well-coordinated movements. No focal deficits noted Skin: No rash or skin lesions. Psychiatric: Coperative. Nonsuicidal Musculoskeletal: No joint swelling or deformity. Normal range of motion. - Labs CBC & Chem 7: 05/23/19 04:33 05/23/19 04:33 Labs: Abnormal Lab Results - Last 24 Hours (Table) 05/22/19 05/22/19 Range/Units 05:13 05:13 RBC 3.00 L (3.80-5.40) m/uL Hgb 8.3 L (11.4-16.0) gm/dL Hct 27.4 L (34.0-46.0) % MCHC 30.2 L (31.0-37.0) g/dL RDW 15.9 H (11.5-15.5) % Plt Count 111 L (150-450) k/uL Lymphocytes # (Manual) 0.43 L (1.0-4.8) k/uL BUN 18 H (7-17) mg/dL Creatinine 1.33 H (0.52-1.04) mg/dL Calcium 7.8 L (8.4-10.2) mg/dL Albumin 3.1 L (3.5-5.0) g/dL Microbiology - Last 24 Hours (Table) 05/21/19 14:57 Gram Stain - Preliminary Pleural Fluid Body Fluid Culture - Preliminary 05/21/19 02:41 Urine Culture - Final Urine,Clean Catch 05/21/19 11:20 Gram Stain - Preliminary Pleural Fluid Body Fluid Culture - Preliminary 05/21/19 02:07 Blood Culture - Preliminary Blood No Growth after 24 hours 05/21/19 14:57 Anaerobic Culture - Preliminary Pleural Fluid 05/21/19 11:20 Anaerobic Culture - Preliminary Pleural Fluid Assessment and Plan Assessment: Shortness of breath secondary to bilateral pleural effusion status post right and left thoracentesis. Hypotension. improved now. Acute kidney injury secondary to ATN and renal hypoperfusion. Creatinine level is improving. Lactic acidosis likely due to tissue hypoperfusion. Improving Status post aortic valve replacement on 04/30/2019 Postoperative A. fib with RVR status post clip ligation of the left atrial appendage. Paroxysmal atrial fibrillation. On metoprolol, amiodarone and Eliquis. Echodense lesion in the ARMENIAN F tract could be artifact as per TTE on 05/21/2019 and follow-up TREY Elevated TSH level. Follow-up free T4 Hypothyroidism GERD Vitamin D deficiency Fatty liver Depression Morbid obesity BMI 37.8 Plan: Patient is status post right and left-sided thoracentesis. Was given 1 dose of IV Lasix. Continue with Lasix 40 mg daily. Nephrology. Follow-up renal function. Continue with metoprolol, amiodarone and anticoagulation in the form of Eliquis. Patient is scheduled for TREY today afternoon. Cardiology, CT surgery and nephrology is following. Follow-up renal function and lactic acid level. Further recommendations based on the clinical course. Discussed with the pat ient and her family at bedside in detail. Time with Patient: Greater than 30
[2019-05-23] MEDS ORDERED: METOPROLOL TARTRATE 25 MG TAB PO SCH (13:00)
--- NOTE | 2019-05-24 12:13 | CDI ---
Documentation Clarification Form Date: 05/24/19 From: Kalie Silva Phone: If questions call Parris Calvert @ [phone], Hours-8:30 am & 5 pm Felicia Stephens Admit Date: 05/21/2019 2:50:00 AM Patient Name: Katerina Crabtree Visit Number: [id number] Discharge Date: 05/23/2019 3:27:00 PM ATTENTION: The Clinical Documentation Specialists (CDI) and [facility] Coding Staff appreciate your assistance in clarifying documentation. Please respond to the clarification below the line at the bottom and electronically sign. The CDI & [facility] Coding staff will review the response and follow-up if needed. Please note: Queries are made part of the Legal Health Record. If you have any questions, please contact the author of this message via ITS. Dr. Goran Stockton Diastolic CHF is documented in your consult & PNs 05/22 & 05/23. Please specify the acuity of this condition with terms such as: Acute Chronic Acute and chronic Acute on chronic Other (please specify in the medical record) Clinically unable to further specify Unknown MTDD
--- NOTE | 2019-05-24 16:20 | P.PN ---
Progress Note - Text Progress Note Date: 05/24/19 for documentation clarification, patient had acute diastolic congestive heart failure with bilateral pleural effusion.
--- NOTE | 2019-06-04 02:32 | P.DS ---
Providers Date of admission: 05/21/19 02:50 Expected date of discharge: 05/23/19 Attending physician: Mel Valencia Consults: 05/21/19 02:50 Consult Physician Routine Consulting Provider: Ok Romero Consult Reason/Comments: Elevated troponin Do you want consulting provider notified?: Yes Consult Physician Stat Consulting Provider: Carlita Weller Consult Reason/Comments: Hypotension. BiPAP. Do you want consulting provider notified?: Already Contacted Consult Physician Urgent Consulting Provider: Pipo Hines Consult Reason/Comments: Your postsurgical patient Do you want consulting provider notified?: Already Contacted 05/21/19 10:26 Consult Physician Routine Consulting Provider: Az Graham Consult Reason/Comments: [place] Do you want consulting provider notified?: Yes Primary care physician: [facility] Course: Discharge diagnosis Shortness of breath secondary to bilateral pleural effusion status post right and left thoracentesis. Hypotension. improved now. Acute CHF with diastolic dysfunction. Acute kidney injury secondary to ATN and renal hypoperfusion. Creatinine level is improving. Lactic acidosis likely due to tissue hypoperfusion. Improving Status post aortic valve replacement on 04/30/2019 Postoperative A. fib with RVR status post clip ligation of the left atrial appendage. Paroxysmal atrial fibrillation. On metoprolol, amiodarone and Eliquis. Echodense lesion in the THAI F tract could be artifact as per TTE on 05/21/2019 and follow-up TREY Elevated TSH level. Follow-up free T4 Hypothyroidism GERD Vitamin D deficiency Fatty liver Depression Morbid obesity BMI 37.8 Hospital course Patient is a 58-year-old female with a known history of aortic valve replacement on 04/30/2019 due to aortic stenosis, hypertension, hypothyroidism, fatty liver And morbid obesity with a BMI 37.8 initially presented to [facility] with complaints of worsening shortness of breath for the past 2 weeks and increased severity last night. Patient was also hypotensive which made her to go to ER. Patient was discharged from the hospital on 05/05/2019 after surgery. She presented to ER on 05/08/2019 due to palpitations and was admitted to observation unit due to atrial fibrillation. Patient was sent back with sinus rhythm and was being continued on metoprolol and amiodarone. Patient was seen by Dr. Weller in the pulmonary clinic where he had chest x-ray due to worsening short of breath which showed pleural effusion and is supposed to get thoracentesis on 05/20/2019. Patient presented to hospital due to worsening symptoms. Patient was found to have elevated lactic acid level. Creatinine went up to 1.47. Chest x-ray showed similar small to moderate left pleural effusion with adjacent atelectasis and/or consolidation. Slight increased small to moderate right pleural effusion. EKG showed normal sinus rhythm. Troponin 0.110 and 0.102 2-D echocardiogram showed ejection fraction 50-55%. Right ventricular systolic pressure is 27.65 mmHg. Echodense lesion in the THAI F tract could be artifact, consider TREY if clinically indicated. Urinalysis showed likely contaminant sample. Patient has been afebrile. No leukocytosis. Patient was seen with pulmonary and is status post right-sided thoracentesis with 400 mL fluid removal. Patient was given a dose of Lasix. Patient otherwise denied any complaints of cough or sputum production. No chest pain. No nausea vomiting or diarrhea. No increased leg swelling. No dysuria or hematuria. 05/22/2019 Patient says that her breathing status is much improved after bilateral thoracentesis. Currently on Lasix. Patient is able to sit in the chair comfortably. No complaints of chest pain. Patient had transesophageal echo cardiac was done which showed no new pathology. Otherwise patient had an episode of A. fib with RVR this morning and converted to sinus rhythm spontaneously. No complaint of chest shortness. No fever no chills. Saturating well on room air. No cough or sputum production. 05/23/19 Patient's breathing status is much improved today. Able to walk in the hallway. Patient will be continued on metoprolol for atrial fibrillation and rate is controlled now. Otherwise patient is being discharged home today. No complaints of headache or dizziness or lightheadedness. Currently maintaining sinus rhythm. Patient is being followed by pulmonary and CT surgery. Plan: Patient is status post right and left-sided thoracentesis. Continued with Lasix 40 mg daily. Change to her home dose. Patient was seen by Nephrology. Renal function much improved otherwise. Continue with metoprolol, amiodarone and anticoagulation in the form of Eliquis. PHYSICAL EXAMINATION: Patient is lying in the bed comfortably, no acute distress, awake alert and oriented.. HEENT: Normocephalic. Neck is supple. Pupils reactive. Nostrils clear. Oral cavity is moist. Ears reveal no drainage. Neck reveals no JVD, carotid bruits, or thyromegaly. CHEST EXAMINATION: Trachea is central. Symmetrical expansion. Right basilar minimal crackles. No wheezing. Otherwise Lung mathur clear to auscultation and percussion. CARDIAC: Normal S1, S2 with no gallops. No murmurs ABDOMEN: Soft. Bowel sounds normal. No organomegaly. No abdominal bruits. Extremities: reveal no edema. No clubbing or cyanosis Neurologically awake, alert, oriented x3 with well-coordinated movements. No focal deficits noted Skin: No rash or skin lesions. Psychiatric: Coperative. Nonsuicidal Musculoskeletal: No joint swelling or deformity. Normal range of motion. Vital Signs Temp 98.1 F 05/23/19 08:00 Pulse 61 05/23/19 08:00 Resp 16 05/23/19 08:00 BP 118/56 05/23/19 08:00 Pulse Ox 91 L 05/23/19 08:00 Intake & Output 05/22/19 05/23/19 05/23/19 18:59 06:59 18:59 Intake Total 540 200 Output Total 1175 950 400 Balance -635 -750 -400 Weight 104.4 kg Intake: IV 40 Sodium Chloride 0.9% 1, 40 000 ml @ 40 mls/hr IV . Q24H [facility] Rx#:[id number] Oral 500 200 Output: Urine 1175 950 400 Other: Voiding Method Toilet # Voids 1 1 # Bowel Movements 1 Total time taken greater than 35 minutes including 18 minutes for counseling and coordination of care. Patient Condition at Discharge: Serious Plan - Discharge Summary Discharge Rx Participant: Yes New Discharge Prescriptions: Continue Cholecalciferol (Vitamin D3) [Vitamin D3] 2,000 unit PO DAILY Citalopram Hydrobromide [CeleXA] 40 mg PO QAM Atorvastatin [Lipitor] 40 mg PO HS #30 tab Pantoprazole [Protonix] 40 mg PO AC-BRKFST #30 tablet.dr Acetaminophen Tab [Tylenol] 1,000 mg PO Q6HR PRN #120 tab PRN Reason: Fever And/ Or Pain Sennosides-Docusate Sodium [Senokot-S] 2 tab PO HS PRN PRN Reason: Constipation Aspirin 81 mg PO DAILY #30 chew Amiodarone [Cordarone] 200 mg PO DAILY #7 tab Apixaban [Eliquis] 5 mg PO BID #60 tab Metoprolol Tartrate [Lopressor] 25 mg PO BID Levothyroxine Sodium [Synthroid] 137 mcg PO DAILY Furosemide [Lasix] 20 mg PO DAILY #7 tab Discharge Medication List Cholecalciferol (Vitamin D3) [Vitamin D3] 2,000 unit PO DAILY 03/27/19 [History] Citalopram Hydrobromide [CeleXA] 40 mg PO QAM 03/27/19 [History] Acetaminophen Tab [Tylenol] 1,000 mg PO Q6HR PRN #120 tab 05/05/19 [Rx] Atorvastatin [Lipitor] 40 mg PO HS #30 tab 05/05/19 [Rx] Pantoprazole [Protonix] 40 mg PO AC-BRKFST #30 tablet. 05/05/19 [Rx] Sennosides-Docusate Sodium [Senokot-S] 2 tab PO HS PRN 05/08/19 [History] Amiodarone [Cordarone] 200 mg PO DAILY #7 tab 05/09/19 [Rx] Apixaban [Eliquis] 5 mg PO BID #60 tab 05/09/19 [Rx] Aspirin 81 mg PO DAILY #30 chew 05/09/19 [Rx] Levothyroxine Sodium [Synthroid] 137 mcg PO DAILY 05/21/19 [History] Metoprolol Tartrate [Lopressor] 25 mg PO BID 05/21/19 [History] Furosemide [Lasix] 20 mg PO DAILY #7 tab 05/23/19 [Rx] Follow up Appointment(s)/Referral(s): Goran Stockton MD [STAFF PHYSICIAN] - 1 Week (Thursday, May 30, 2019 at 3:00pm) Odilon Hall MD [Primary Care Provider] - 1-2 days (May at 1:30pm.) [facility], [NON-STAFF] - Pipo Hines MD [STAFF PHYSICIAN] - 06/06/19 2:30 pm Az Graham DO [STAFF PHYSICIAN] - 2 Weeks (Office will contact patient to schedule appointment within 1-2 weeks. ) Patient Instructions/Handouts: A-fib (Atrial Fibrillation) (GEN), Pleural Effusion (DC), Hypotension (GEN) Discharge Disposition: HOME WITH HOME HEALTH SERVICES
== END 2019-05-23 15:27 | disposition home health service (06) | DRG 291 ==
LOC: SUPCPDRO 01:07 → EC 01:07 → 2SICU 02:50
PROVIDERS: ADMIT Hospitalist; ATTEND Hospitalist
PROC: B246ZZ4 Ultrasonography of Right and Left Heart, Transesophageal (ICD-10-PCS; principal; 2019-05-21)
PROC: 0W9B3ZX Drainage of Left Pleural Cavity, Percutaneous Approach, Diagnostic (ICD-10-PCS; 2019-05-21)
PROC: 0W993ZX Drainage of Right Pleural Cavity, Percutaneous Approach, Diagnostic (ICD-10-PCS; 2019-05-21)
DX: I13.0 Hypertensive heart and chronic kidney disease with heart failure and stage 1 through stage 4 chronic kidney disease, or unspecified chronic kidney disease (principal); I50.31 Acute diastolic (congestive) heart failure; N17.0 Acute kidney failure with tubular necrosis; J91.8 Pleural effusion in other conditions classified elsewhere; E87.2 Acidosis; I31.3 Pericardial effusion (noninflammatory); N39.0 Urinary tract infection, site not specified; I95.9 Hypotension, unspecified; E66.01 Morbid (severe) obesity due to excess calories; I08.1 Rheumatic disorders of both mitral and tricuspid valves; K76.0 Fatty (change of) liver, not elsewhere classified; I48.0 Paroxysmal atrial fibrillation; N18.9 Chronic kidney disease, unspecified; K76.9 Liver disease, unspecified; E89.0 Postprocedural hypothyroidism; K21.9 Gastro-esophageal reflux disease without esophagitis; E55.9 Vitamin D deficiency, unspecified; F32.9 Major depressive disorder, single episode, unspecified; E78.5 Hyperlipidemia, unspecified; D64.9 Anemia, unspecified; J44.9 Chronic obstructive pulmonary disease, unspecified; Z68.37 Body mass index [BMI] 37.0-37.9, adult; Z79.01 Long term (current) use of anticoagulants; Z79.82 Long term (current) use of aspirin; Z79.890 Hormone replacement therapy; Z79.899 Other long term (current) drug therapy; Z87.891 Personal history of nicotine dependence; Z95.3 Presence of xenogenic heart valve; Z90.49 Acquired absence of other specified parts of digestive tract; Z98.51 Tubal ligation status; Z98.890 Other specified postprocedural states; Z91.041 Radiographic dye allergy status; Z91.040 Latex allergy status; Z91.048 Other nonmedicinal substance allergy status; Z80.0 Family history of malignant neoplasm of digestive organs; Z82.5 Family history of asthma and other chronic lower respiratory diseases; Z82.49 Family history of ischemic heart disease and other diseases of the circulatory system
CPT/HCPCS: 36415; 71045; 76604; 80048; 80053; 81001; 83605; 83735; 83880; 84484; 85025; 87040; 87070; 87075; 87086; 87205; 88108; 88305; 89050; 93005; 93306; 93312; 93320; 93325; 94640; 94660; 96360; 96361; 99291

== ENCOUNTER → 2019-05-30 | Outpatient (CLI) | payer MEDICAID ==
[2019-05-30 18:38] LABS: African American GFR (CKD) 92.9 (60.0-200.0); Anion Gap 8.3 mmol/L (4.00-12.00); BUN/Creat Ratio 16.25 Ratio (12.00-20.00); Calcium 9.1 mg/dL (8.7-10.3); Carbon Dioxide 25.7 mmol/L (21.6-31.8); Magnesium 1.8 mg/dL (1.5-2.4); Potassium 4.1 mmol/L (3.5-5.5)
== END | disposition home or self-care (01) ==
LOC: LABWHC1 13:59
PROVIDERS: ATTEND Nurse Practitioner
DX: Z48.89 Encounter for other specified surgical aftercare (principal); Z95.3 Presence of xenogenic heart valve
CPT/HCPCS: 36415; 80048; 83735

== ENCOUNTER → 2019-07-10 | Outpatient (CLI) | payer MEDICAID ==
--- NOTE | 2019-07-10 15:28 | XR ---
EXAMINATION TYPE: XR chest 2V DATE OF EXAM: 07/10/2019 COMPARISON: 05/23/2019 HISTORY: Pleural effusion on the left. Recent thoracentesis. Follow-up exam. TECHNIQUE: Frontal and lateral views of the chest are obtained. FINDINGS: Chronic pleural reaction is seen at the lung bases on the frontal view with no sizable ple ural effusion on the lateral view. Cardiac valvular replacement and sternotomy wires are seen. Modera te degenerative changes of the spine. No focal consolidation, pleural effusion or pneumothorax. Kelly cystectomy clips are seen. IMPRESSION: No acute cardiopulmonary process. Resolved pleural effusions when evaluated on the later al view.
== END ==
LOC: RADXRMAIN 15:04
PROVIDERS: ATTEND Nurse Practitioner
DX: J91.8 Pleural effusion in other conditions classified elsewhere (principal)
CPT/HCPCS: 71046

== ENCOUNTER → 2020-12-02 | Outpatient (CLI) | payer MEDICAID ==
--- NOTE | 2020-12-02 09:32 | CT ---
EXAMINATION TYPE: CT chest wo con DATE OF EXAM: 12/02/2020 COMPARISON: 05/08/2019 HISTORY: 60-year-old female R06.00 Dyspnea, J98.6, E05.00 Graves' disease. TECHNIQUE: Contiguous axial scanning of the chest without IV contrast. Coronal and sagittal reconstru ctions performed. CT DLP: 620 mGycm Automated exposure control for dose reduction was used. FINDINGS: Median sternotomy wires are present with prosthetic aortic valve. The heart itself is normal size wit hout pericardial effusion. Mild atherosclerotic arch calcifications with conventional arch vessel branching anatomy. No thoracic lymph adenopathy by CT size criteria. There is focal anterior lobulation of the anterior right hemidiaphragm compatible with diaphragmatic eventration. Minimal emphysematous change. Some strandy atelectasis or scarring at the left base. No consolidation or pleural effusion. Nodular hepatic contour. Splenomegaly at 16.1 cm. Cholecystectomy clips. Bones: Anterior endplate spondylosis lower thoracic spine. No osseous destructive process. IMPRESSION: 1. 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 Questionable clinical signif icance. 2. COPD with very mild emphysema. No acute pulmonary process. 3. Nodular hepatic contour highly suggestive of underlying cirrhosis. Splenomegaly at 16.1 cm may ref lect concurrent portal venous hypertension. Further clinical assessment and management recommended.
--- NOTE | 2020-12-02 09:43 | FL ---
EXAMINATION TYPE: FL sniff test without CXR DATE OF EXAM: 12/02/2020 Comparison: Correlation CT same day Clinical History: 60-year-old female persistent shortness of breath since open heart surgery in 2019. R06.00 Dyspnea; J98.6; E05.00 Graves disease TECHNIQUE: Real-time fluoroscopy imaging of the diaphragm. Total fluoroscopy time: 30 seconds. Total images: 9. FINDINGS: Median sternotomy wires and prosthetic aortic valve are noted. There is lobulation of the right hemid iaphragm compatible with focal eventration is seen on CT of the same day. During quiet breathing, there is normal symmetric excursion of the hemidiaphragms. Similar symmetric excursion during deep inspiration and expiration. Sniff maneuver shows normal movement as well. Impression: Negative for hemidiaphragmatic paralysis. Some incidental right hemidiaphragmatic eventration noted o f questionable clinical significance.
== END | disposition home or self-care (01) ==
LOC: RADCTMAIN 08:46
PROVIDERS: ATTEND Internal Medicine Pulmonary Disease
DX: J44.9 Chronic obstructive pulmonary disease, unspecified (principal); E05.00 Thyrotoxicosis with diffuse goiter without thyrotoxic crisis or storm
CPT/HCPCS: 71250; 76000

== ENCOUNTER → 2021-11-03 | Outpatient (CLI) | payer OTHER ==
[2021-11-03 15:34] LABS: Appearance,Urine Clear (Clear); Bilirubin,Urine Negative (Negative); Blood,Urine Negative (Negative); Color,Urine Yellow; Glucose,Urine (UA) Negative (Negative); Hyaline Casts,Urine 4 /lpf (0-2); Ketones,Urine Negative (Negative); Leukocyte Esterase,Urine Trace (Negative); Mucus,Urine Rare /hpf; Nitrite,Urine Negative (Negative); PH, Urine 7.5 (5.0-8.0); Protein,Urine 3+ (Negative); RBC,Urine 2 /hpf (0-5); Specific Gravity,Urine 1.019 (1.001-1.035); Squamous Epithelial Cell,Urine 2 /hpf (0-4); WBC,Urine 10 /hpf (0-5)
[2021-11-03 15:41] LABS: INR 1.5 (<1.2); Partial Thromboplastin Time 32.1 sec (22.0-30.0); Prothrombin Time 15.5 sec (9.0-12.0)
[2021-11-04 02:26] LABS: African American GFR (CKD) 97.1 (60.0-200.0); Albumin 3.4 g/dL (3.8-4.9); Albumin/Globulin Ratio 1.01 (1.60-3.17); Anion Gap 13.7 mmol/L (10.00-18.00); BUN/Creat Ratio 11.8 Ratio (12.00-20.00); Calcium 8.4 mg/dL (8.7-10.3); Carbon Dioxide 17.8 mmol/L (20.0-27.5); Globulin 3.4 g/dL (1.6-3.3); Non-African American GFR(CKD) 83.8 (60.0-200.0); Potassium 4.2 mmol/L (3.5-5.5); Total Bilirubin 1.1 mg/dL (0.30-1.20); Total Protein 6.7 g/dL (6.2-8.2)
[2021-11-04 06:26] LABS: HCT 22.7 % (37.2-46.3); MCH 20.6 pg (27.0-32.0); MCHC 26.4 g/dL (32.0-37.0); Platelet Count 101 X 10*3/uL (140-440); RBC 2.91 X 10*6/uL (4.10-5.20); RDW 17.8 % (11.5-14.5); WBC 1.98 X 10*3/uL (4.50-10.00)
== END | disposition home or self-care (01) ==
LOC: LABPAT 14:10
PROVIDERS: ATTEND Orthopaedic Surgery Orthopaedic Surgery of the Spine
DX: Z01.812 Encounter for preprocedural laboratory examination (principal); Z01.810 Encounter for preprocedural cardiovascular examination; M48.00 Spinal stenosis, site unspecified
CPT/HCPCS: 80053; 81001; 85027; 85610; 85730; 87070; 93005

== ENCOUNTER 2021-11-05 11:57 | Inpatient (IN) | payer OTHER ==
--- NOTE | 2021-11-05 13:06 | ED ---
General Adult HPI - General Chief complaint: Recheck/Abnormal Lab/Rx Stated complaint: Recheck/Blood Transfusion Time Seen by Provider: 11/05/21 12:00 Source: patient, family, RN notes reviewed, old records reviewed Mode of arrival: ambulatory Limitations: no limitations - History of Present Illness Initial comments: This is a 60-year-old female presents emergency department stating she came in today because her primary medical care doctor told her hemoglobin was 6. Patient states she has no history of anemia. Patient denies any black or bloody stools. Patient states she is on eliquis for the heart valve though she states it's a bovine valve. Patient denies any abdominal pain. Patient has any nausea vomiting diarrhea per patient denies any recent fever chills or cough. Patient denies any chest pain. Patient states she does have shortness of breath and she exerts herself and she's becoming gradually more more fatigued to the point wher e she could sleep all day and all night. - Related Data Home Medications Medication Instructions Recorded Confirmed Cholecalciferol (Vitamin D3) 2,000 unit PO DAILY 03/27/19 11/05/21 [Vitamin D3] Citalopram Hydrobromide [CeleXA] 40 mg PO QAM 03/27/19 11/05/21 Levothyroxine Sodium [Synthroid] 137 mcg PO DAILY 05/21/19 11/05/21 Metoprolol Tartrate [Lopressor] 25 mg PO QAM 05/21/19 11/05/21 Cetirizine HCl [Zyrtec] 10 mg PO HS 09/30/21 11/05/21 Famotidine [Pepcid] 20 mg PO BID 09/30/21 11/05/21 Fluticasone Nasal [place] [Flonase 2 spray EA NOSTRIL DAILY PRN 09/30/21 11/05/21 Nasal [place]] HYDROcodone/APAP 7.5-325MG [[place] 1 tab PO Q4-6H PRN 09/30/21 11/05/21 7.5-325] QUEtiapine FUMARATE 100 mg PO HS 09/30/21 11/05/21 metFORMIN HCL [Glucophage] 500 mg PO BID 09/30/21 11/05/21 Albuterol Sulfate [Ventolin HFA] 1 - 2 puff INHALATION Q6H PRN 11/05/21 11/05/21 Ascorbic Acid [Vitamin C] 500 mg PO DAILY 11/05/21 11/05/21 Cyanocobalamin (Vitamin B-12) 1,000 mcg PO DAILY 11/05/21 11/05/21 [Vitamin B-12] Fluticasone/Salmeterol [Advair 1 inhalation PO BID 11/05/21 11/05/21 250-50 Diskus] Zinc 50 mg PO DAILY 11/05/21 11/05/21 Previous Rx's Medication Instructions Recorded Atorvastatin [Lipitor] 40 mg PO HS #30 tab 05/05/19 Apixaban [Eliquis] 5 mg PO BID #60 tab 05/09/19 Allergies Allergy/AdvReac Type Severity Reaction Status Date / Time Iodinated Contrast Media Allergy Severe Vomiting/ra Verified 11/05/21 09:33 [Iodinated Contrast- Oral sh/itching and IV Dye] latex Allergy Itching/queta Verified 11/05/21 09:33 h adhesive tape Allergy Itching/queta Uncoded 11/05/21 09:33 h Review of Systems ROS Statement: Those systems with pertinent positive or pertinent negative responses have been documented in the HPI. ROS Other: All systems not noted in ROS Statement are negative. Past Medical History Past Medical History: Diabetes Mellitus, GERD/Reflux, Hyperlipidemia, Hypertension, Liver Disease, Musculoskeletal Disorder, Osteoarthritis (OA), Sleep Apnea/CPAP/BIPAP, Thyroid Disorder Additional Past Medical History / Comment(s): SOB w/exertion, enlarged/fatty liver, hasn't gotten CPAP yet, exposed to covid 7 days ago, having covid test tomorrow History of Any Multi-Drug Resistant Organisms: None Reported Past Surgical History: Appendectomy, Cholecystectomy, Heart Catheterization, Orthopedic Surgery, Tubal Ligation Additional Past Surgical History / Comment(s): TREY,thyroidectomy, bunionectomy rt foot, aortic valve replacement 04/2019 Past Anesthesia/Blood Transfusion Reactions: Postoperative Nausea & Vomiting (PONV) Additional Past Anesthesia/Blood Transfusion Reaction / Comment(s): no hx blood transfusion Past Psychological History: Depression Smoking Status: Former smoker Past Alcohol Use History: None Reported Past Drug Use History: None Reported - Past Family History Mother Family Medical History: No Reported History Father Family Medical History: Cancer, Congestive Heart Failure (CHF), COPD Additional Family Medical History / Comment(s): colon cancer General Exam - General Exam Comments Initial Comments: GENERAL: Patient is well-developed and well-nourished. Patient is nontoxic and well- hydrated and is in no acute distress. ENT: Neck is soft and supple. No significant lymphadenopathy is noted. Oropharynx is clear. Moist mucous membranes. Neck has full range of motion without eliciting any pain. EYES: The sclera were anicteric and conjunctiva were pink and moist. Extraocular movements were intact and pupils were equal round and reactive to light. Eyelids were unremarkable. PULMONARY: Unlabored respirations. Good breath sounds bilaterally. No audible rales rhonchi or wheezing was noted. CARDIOVASCULAR: There is a regular rate and rhythm without any murmurs gallops or rubs. ABDOMEN: Soft and nontender with normal bowel sounds. SKIN: Skin is very pale NEUROLOGIC: Patient is alert and oriented x3. Cranial nerves II through XII are grossly intact. Motor and sensory are also intact. Normal speech, volume and content. Symmetrical smile. MUSCULOSKELETAL: Normal extremities with adequate strength and full range of motion. No lower extremity swelling or edema. No calf tenderness. LYMPHATICS: No significant lymphadenopathy is noted PSYCHIATRIC: Normal psychiatric evaluation. Limitations: no limitations Course Vital Signs 11/05/21 12:00 Temperature 98.1 F Pulse Rate 81 Respiratory 18 Rate Blood Pressure 139/59 O2 Sat by Pulse 98 Oximetry Medical Decision Making - Medical Decision Making Patient called blood was negative. Patient's Hemoccult was 6.6. Because there is a current blood shortage we are not transfusing until hemoglobin dropped to 6.0. I spoke with Dr. Figueroa she agreed to admit the patient I am going to admit the patient write admitting orders and consult hematology and GI. - Lab Data Result diagrams: 11/05/21 12:55 11/05/21 12:55 Lab Results 11/05/21 11/05/21 11/05/21 Range/Units 12:55 12:55 12:55 WBC 1.9 L (3.8-10.6) k/uL RBC 2.85 L (3.80-5.40) m/uL Hgb 6.6 L* (11.4-16.0) gm/dL Hct 22.1 L (34.0-46.0) % MCV 77.7 L (80.0-100.0) fL MCH 23.2 L (25.0-35.0) pg MCHC 29.8 L (31.0-37.0) g/dL RDW 17.2 H (11.5-15.5) % Plt Count 108 L (150-450) k/uL MPV 8.3 Neutrophils % 49 % Lymphocytes % 37 % Monocytes % 6 % Eosinophils % 3 % Basophils % 1 % Neutrophils # 0.9 L (1.3-7.7) k/uL Lymphocytes # 0.7 L (1.0-4.8) k/uL Monocytes # 0.1 (0-1.0) k/uL Eosinophils # 0.1 (0-0.7) k/uL Basophils # 0.0 (0-0.2) k/uL Hypochromasia Marked Poikilocytosis Slight Anisocytosis Slight Microcytosis Slight PT 14.4 H (9.0-12.0) sec INR 1.4 H (<1.2) APTT 27.4 (22.0-30.0) sec Sodium 141 (137-145) mmol/L Potassium 3.9 (3.5-5.1) mmol/L Chloride 115 H (98-107) mmol/L Carbon Dioxide 20 L (22-30) mmol/L Anion Gap 6 mmol/L BUN 8 (7-17) mg/dL Creatinine 0.53 (0.52-1.04) mg/dL Est GFR (CKD-EPI)AfAm >90 (>60 ml/min/1.73 sqM) Est GFR (CKD-EPI)NonAf >90 (>60 ml/min/1.73 sqM) Glucose 109 H (74-99) mg/dL Calcium 8.3 L (8.4-10.2) mg/dL Magnesium 1.7 (1.6-2.3) mg/dL Total Bilirubin 1.5 H (0.2-1.3) mg/dL AST 33 (14-36) U/L ALT 19 (4-34) U/L Alkaline Phosphatase 97 (38-126) U/L Troponin I (0.000-0.034) ng/mL Total Protein 7.1 (6.3-8.2) g/dL Albumin 3.0 L (3.5-5.0) g/dL Stool Occult Blood (Negative) 11/05/21 11/05/21 Range/Units 12:55 12:55 WBC (3.8-10.6) k/uL RBC (3.80-5.40) m/uL Hgb (11.4-16.0) gm/dL Hct (34.0-46.0) % MCV (80.0-100.0) fL MCH (25.0-35.0) pg MCHC (31.0-37.0) g/dL RDW (11.5-15.5) % Plt Count (150-450) k/uL MPV Neutrophils % % Lymphocytes % % Monocytes % % Eosinophils % % Basophils % % Neutrophils # (1.3-7.7) k/uL Lymphocytes # (1.0-4.8) k/uL Monocytes # (0-1.0) k/uL Eosinophils # (0-0.7) k/uL Basophils # (0-0.2) k/uL Hypochromasia Poikilocytosis Anisocytosis Microcytosis PT (9.0-12.0) sec INR (<1.2) APTT (22.0-30.0) sec Sodium (137-145) mmol/L Potassium (3.5-5.1) mmol/L Chloride (98-107) mmol/L Carbon Dioxide (22-30) mmol/L Anion Gap mmol/L BUN (7-17) mg/dL Creatinine (0.52-1.04) mg/dL Est GFR (CKD-EPI)AfAm (>60 ml/min/1.73 sqM) Est GFR (CKD-EPI)NonAf (>60 ml/min/1.73 sqM) Glucose (74-99) mg/dL Calcium (8.4-10.2) mg/dL Magnesium (1.6-2.3) mg/dL Total Bilirubin (0.2-1.3) mg/dL AST (14-36) U/L ALT (4-34) U/L Alkaline Phosphatase (38-126) U/L Troponin I <0.012 (0.000-0.034) ng/mL Total Protein (6.3-8.2) g/dL Albumin (3.5-5.0) g/dL Stool Occult Blood Negative (Negative) Disposition Clinical Impression: Anemia, Dyspnea, Fatigue Disposition: ADMITTED IP TO THIS HOSP Referrals: Odilon Hall MD [Primary Care Provider] - 1-2 days Time of Disposition: 13:50
[2021-11-05 13:07] LABS: Anisocytosis Slight; Basophils % (A) 1 %; Eosinophils # (A) 0.1 k/uL (0-0.7); Eosinophils % (A) 3 %; HCT 22.1 % (34.0-46.0); Hypochromasia Marked; Lymphocytes # (A) 0.7 k/uL (1.0-4.8); Lymphocytes % (A) 37 %; MCH 23.2 pg (25.0-35.0); MCHC 29.8 g/dL (31.0-37.0); MCV 77.7 fL (80.0-100.0); Mean Platelet Volume 8.3; Microcytosis Slight; Monocytes # (A) 0.1 k/uL (0-1.0); Monocytes % (A) 6 %; Neutrophils # (A) 0.9 k/uL (1.3-7.7); Neutrophils % (A) 49 %; Platelet Count 108 k/uL (150-450); Poikilocytosis Slight; RBC 2.85 m/uL (3.80-5.40); RDW 17.2 % (11.5-15.5); WBC 1.9 k/uL (3.8-10.6)
[2021-11-05 13:17] LABS: INR 1.4 (<1.2); Partial Thromboplastin Time 27.4 sec (22.0-30.0); Prothrombin Time 14.4 sec (9.0-12.0)
[2021-11-05 13:19] LABS: ALT 19 U/L (4-34); AST 33 U/L (14-36); African American GFR (CKD) >90 (>60 ml/min/1.73 sqM); Alkaline Phosphatase 97 U/L (38-126); Anion Gap 6 mmol/L; Blood Urea Nitrogen 8 mg/dL (7-17); Calcium 8.3 mg/dL (8.4-10.2); Carbon Dioxide 20 mmol/L (22-30); Chloride 115 mmol/L (98-107); Glucose 109 mg/dL (74-99); Magnesium 1.7 mg/dL (1.6-2.3); Non-African American GFR(CKD) >90 (>60 ml/min/1.73 sqM); Potassium 3.9 mmol/L (3.5-5.1); Sodium 141 mmol/L (137-145); Total Bilirubin 1.5 mg/dL (0.2-1.3); Total Protein 7.1 g/dL (6.3-8.2)
[2021-11-05 13:21] LABS: HGB 6.6 gm/dL (11.4-16.0)
[2021-11-05] MEDS ORDERED: IOPAMIDOL CONTRAST (ORAL USE) VIAL PO PRN (17:14)
[2021-11-05] MEDS ORDERED: methylPREDNISolone SOD SUCCI 125 MG/2 ML VIAL IV ONE (17:16)
[2021-11-05] MEDS ORDERED: MELATONIN 3 MG TABLET PO PRN (17:17)
[2021-11-05] MEDS ORDERED: ONDANSETRON 4 MG/2 ML VIAL IVP PRN (17:17)
[2021-11-05] MEDS ORDERED: LACTULOSE 20 GM/30 ML CUP PO PRN (17:17)
[2021-11-05] MEDS ORDERED: ALPRAZolam 0.25 MG TAB PO PRN (17:17)
[2021-11-05] MEDS ORDERED: NALOXONE 0.4 MG/ML 1 ML VIAL IV PRN (17:17)
[2021-11-05] MEDS ORDERED: ACETAMINOPHEN TAB 325 MG TAB PO PRN (17:17)
[2021-11-05] MEDS ORDERED: CALCIUM CARBONATE 500 MG CHEWABLE PO PRN (17:17)
[2021-11-05] MEDS ORDERED: ALBUTEROL NEBULIZED 2.5 MG/3 ML INHALATION PRN (17:18)
--- NOTE | 2021-11-05 17:24 | P.HPIM ---
History of Present Illness H&P Date: 11/05/21 Chief Complaint: Low hemoglobin Hospital course: This is a pleasant 60-year-old patient of .. Chronic stable medical conditions include hypertension, hypothyroid, fatty liver, depression. History of aortic valve replacement. Shortly after she had developed atrial fibrillation for which she eliquis. Patient is due to have back surgery by Dr. Chavez [facility] and has a preop blood work she had a hemoglobin done. Came back at 6.6. And she is being admitted. Patient for about 2 weeks at least she has been feeling weak tired is a legs feel wobbly. Increase in shortness of breath. She is also noticed that she lost about 10 pounds as her appetite is not good. Denies any black stools. She does look in the stool before she flushes the toilet. No fever no chills. Review of systems: GEN.: Weight loss loss of appetite EYES: None HEENT: None NECK: None RESPIRATORY: shortness of breath CARDIOVASCULAR: As above GASTROINTESTINAL: None GENITOURINARY: None MUSCULOSKELETAL: Joint pains LYMPHATICS: None HEMATOLOGICAL: None PSYCHIATRY: None NEUROLOGICAL: None Past medical history to include: Hypertension, hypothyroid, fatty liver, depression, aortic valve replacement, paroxysmal atrial fibrillation with eliquis, DJD spine Social history: Lives alone. Smoked half a pack and about 40 years stopped in 2017. No alcohol. Family history: Reviewed, unremarkable Physical examination: VITAL SIGNS: [98.1, 81, 18, 139/59, 98% room air GENERAL: BMI 38.7, laying in bed, awake. EYES: Pupils equal. Conjunctiva palel. HEENT: External appearance of nose and ears normal, oral cavity grossly normal. NECK: JVD not raised; masses not palpable. HEART: First and second heart sounds are normal; no edema. LUNGS: Respiratory rate normal; clear to auscultation. ABDOMEN: Soft, nontender, liver spleen not palpable, no masses palpable. PSYCH: Alert and oriented x3; mood and affect normal. MUSCULOSKELETAL:No Clubbing/cyanosis;muscles-grossly intact NEUROLOGICAL: Cranial nerves grossly intact; no facial asymmetry, power and sensation grossly intact. LYMPHATICS: No lymph nodes palpable in the axilla and neck Investigations, reviewed in the clinical context: White count 1.9 hemoglobin 6.6 platelets 108 potassium 3.9 creatinine 0.53 Stool occult blood negative Coronavirus [PCR]: Not detected Previous labs: May 2019 White count 3.4 hemoglobin 9 platelets 132 Assessment and plan: -This is a patient who is presents with symptomatic, microcytic anemia. Note that the patient has loss of appetite and weight loss. We will do a computed tomography scan of the abdomen and pelvis and chest to rule out any malignancy. Consultation to GI and hematology. Transfuse r blood -Pancytopenia. Note that patient's serum lites were low in May 2019. He to rule out underlying bone marrow issues. Myelodysplasia the differential. Hematology consulted -Paroxysmal atrial fibrillation Hold eliquis. Continue metoprolol -Aortic valve replacement with Simon bioprosthetic aortic valve with clip ligation of the left atrial appendage -Obesity BMI 38.7 Weight loss measures -Essential hypertension Lopressor 25 mg daily -Hepatic steatosis -Hypothyroidism Synthroid 137 g daily -Depression otherwise specified Celexa 40 mg daily. Seroquel 100 mg daily at bedtime -Chronic lower back DJD pending surgery by from [facility] [place] 7.5 every 4 when necessary -COPD in a previous smoker Advair 250/50 one puff twice a day, pro-air when necessary We'll order a computed tomography scan of the chest abdomen pelvis with contrast to rule out any underlying malignancy. Transfuse blood. Iron studies. B12 folate. Consultation to hematology and GI. Home medications resumed. Follow Accu-Cheks. Care was discussed with the patient and questions answered. Past Medical History Past Medical History: Atrial Fibrillation, Heart Failure, Diabetes Mellitus, GERD/Reflux, Hyperlipidemia, Hypertension, Liver Disease, Osteoarthritis (OA), Sleep Apnea/CPAP/BIPAP, Thyroid Disorder Additional Past Medical History / Comment(s): Covid pneumonia 09/2021, NIDDM type II, post aortic valve replacement Afib/converted, enlarged fatty liver, DEISI with Cpap, chronic low back pain with spinal stenosis/DDD, CHF with bilateral pleural effusions/bilateral thoracentesis when pt had valve surgery, hypothyroid, arthritis in multiple joints History of Any Multi-Drug Resistant Organisms: None Reported Past Surgical History: Appendectomy, Cardiac Valve Replacement, Cholecystectomy, Heart Catheterization, Orthopedic Surgery, Tonsillectomy, Tubal Ligation Additional Past Surgical History / Comment(s): TREY, 2019 bioprosthetic aortic valve surgery/clip L atrial appendage/post op bilateral thoracentesis, thyroid removed d/t hyperactivity, r foot bunionectomy. Past Anesthesia/Blood Transfusion Reactions: Postoperative Nausea & Vomiting (PONV) Additional Past Anesthesia/Blood Transfusion Reaction / Comment(s): no hx blood transfusion Smoking Status: Former smoker - Past Family History Mother Family Medical History: CVA/TIA Additional Family Medical History / Comment(s): Mother of a blood clot in her brainstem. Father Family Medical History: Cancer, Congestive Heart Failure (CHF), COPD Additional Family Medical History / Comment(s): colon cancer Medications and Allergies Home Medications Medication Instructions Recorded Confirmed Type Cholecalciferol (Vitamin D3) 2,000 unit PO DAILY 03/27/19 11/05/21 History [Vitamin D3] Citalopram Hydrobromide [CeleXA] 40 mg PO DAILY 03/27/19 11/05/21 History Atorvastatin [Lipitor] 40 mg PO HS #30 tab 05/05/19 11/05/21 Rx Apixaban [Eliquis] 5 mg PO BID #60 tab 05/09/19 11/05/21 Rx Levothyroxine Sodium [Synthroid] 137 mcg PO DAILY 05/21/19 11/05/21 History Cetirizine HCl [Zyrtec] 10 mg PO DAILY 09/30/21 11/05/21 History Famotidine [Pepcid] 20 mg PO BID 09/30/21 11/05/21 History Fluticasone Nasal [place] [Flonase 2 spray EA NOSTRIL DAILY PRN 09/30/21 11/05/21 History Nasal [place]] HYDROcodone/APAP 7.5-325MG [[place] 1 tab PO Q4H PRN 09/30/21 11/05/21 History 7.5-325] QUEtiapine FUMARATE 100 mg PO HS 09/30/21 11/05/21 History metFORMIN HCL [Glucophage] 500 mg PO BID 09/30/21 11/05/21 History Albuterol Sulfate [Proair Hfa] 2 puff INHALATION RT-Q6H PRN 11/05/21 11/05/21 History Fluticasone/Salmeterol [Advair 1 puff INHALATION RT-BID 11/05/21 11/05/21 History 250-50 Diskus] Metoprolol Tartrate [Lopressor] 25 mg PO DAILY 11/05/21 11/05/21 History Allergies Allergy/AdvReac Type Severity Reaction Status Date / Time Iodinated Contrast Media Allergy Severe Vomiting/ra Verified 11/05/21 14:47 [Iodinated Contrast- Oral sh/itching and IV Dye] latex Allergy Itching/queta Verified 11/05/21 14:47 h adhesive tape Allergy Itching/queta Uncoded 11/05/21 09:33 h Physical Exam Vitals: Vital Signs Temp Pulse Resp BP Pulse Ox 11/05/21 12:00 98.1 F 81 18 139/59 98 Intake and Output 11/05/21 11/05/21 11/05/21 06:59 14:59 22:59 Other: Weight 108.862 kg 108.862 kg Results CBC & Chem 7: 11/05/21 12:55 11/05/21 12:55 Labs: Abnormal Lab Results - Last 24 Hours (Table) 11/05/21 11/05/21 11/05/21 Range/Units 12:55 12:55 12:55 WBC 1.9 L (3.8-10.6) k/uL RBC 2.85 L (3.80-5.40) m/uL Hgb 6.6 L* (11.4-16.0) gm/dL Hct 22.1 L (34.0-46.0) % MCV 77.7 L (80.0-100.0) fL MCH 23.2 L (25.0-35.0) pg MCHC 29.8 L (31.0-37.0) g/dL RDW 17.2 H (11.5-15.5) % Plt Count 108 L (150-450) k/uL Neutrophils # 0.9 L (1.3-7.7) k/uL Lymphocytes # 0.7 L (1.0-4.8) k/uL PT 14.4 H (9.0-12.0) sec INR 1.4 H (<1.2) Chloride 115 H (98-107) mmol/L Carbon Dioxide 20 L (22-30) mmol/L Glucose 109 H (74-99) mg/dL Calcium 8.3 L (8.4-10.2) mg/dL Total Bilirubin 1.5 H (0.2-1.3) mg/dL Albumin 3.0 L (3.5-5.0) g/dL Thrombosis Risk Factor Assmnt - Choose All That Apply Any of the Below Risk Factors Present?: Yes Each Factor Represents 1 point: Obesity (BMI >25) Other Risk Factors: Yes Each Risk Factor Represents 2 Points: Age 61-74 years Other congenital or acquired thrombophilia - If yes, enter type in comment: No Thrombosis Risk Factor Assessment Total Risk Factor Score: 3 Thrombosis Risk Factor Assessment Level: Moderate Risk
[2021-11-05] MEDS: diphenhydrAMINE 50 MG/ML 1 ML VIAL IVP ONE (18:41)
[2021-11-05] MEDS: INSULIN ASPART (NovoLOG) 100 UNIT/ML VIAL SQ SCH (18:42)
[2021-11-05] MEDS: FAMOTIDINE 20 MG/2 ML VIAL IV ONE (18:44)
[2021-11-05] MEDS: ATORVASTATIN 40 MG TAB PO SCH (20:03)
[2021-11-05] MEDS: FAMOTIDINE 20 MG TAB PO SCH (20:03)
[2021-11-05] MEDS: QUEtiapine 100 MG TAB PO SCH (20:06)
[2021-11-05] MEDS: HYDROcodone/APAP 7.5-325MG 1 EACH TAB PO PRN (20:06)
[2021-11-05] MEDS ORDERED: BARIUM SULFATE 450 ML ORAL.SUSP BOTTLE PO ONE (20:09)
[2021-11-05] MEDS: SYMBICORT 80-4.5 MCG INHALER INHALATION SCH (20:11)
[2021-11-05 20:25] LABS: Anisocytosis Slight; Basophils % (A) 1 %; Eosinophils % (A) 1 %; HCT 23.7 % (34.0-46.0); Hypochromasia Marked; Lymphocytes # (A) 0.4 k/uL (1.0-4.8); Lymphocytes % (A) 33 %; MCH 21.3 pg (25.0-35.0); MCHC 27.4 g/dL (31.0-37.0); MCV 77.9 fL (80.0-100.0); Mean Platelet Volume 7.7; Microcytosis Slight; Monocytes % (A) 4 %; Neutrophils # (A) 0.7 k/uL (1.3-7.7); Neutrophils % (A) 58 %; Platelet Count 107 k/uL (150-450); Poikilocytosis Slight; RBC 3.05 m/uL (3.80-5.40); RDW 17.1 % (11.5-15.5)
[2021-11-05 20:29] LABS: HGB 6.5 gm/dL (11.4-16.0); WBC 1.1 k/uL (3.8-10.6)
[2021-11-05] MEDS: BARIUM SULFATE 450 ML ORAL.SUSP BOTTLE PO PRN ×2 (20:52→23:30)
[2021-11-06] MEDS: diphenhydrAMINE 50 MG/ML 1 ML VIAL IVP ONE (00:14)
[2021-11-06] MEDS: FAMOTIDINE 20 MG/2 ML VIAL IV ONE (00:14)
[2021-11-06 00:20] LABS: % Iron Saturation 4.58 (12.00-45.00); Ferritin 26.5 ng/mL (10.0-291.0)
[2021-11-06 01:55] LABS: Folate, Serum 12.3 ng/mL (4.40-31.00)
--- NOTE | 2021-11-06 02:56 | CT ---
EXAMINATION TYPE: CT ChestAbdPelvis w con DATE OF EXAM: 11/06/2021 COMPARISON: None HISTORY: weight loss CT DLP: 1738.8 mGycm Automated exposure control for dose reduction was used. CONTRAST: Performed with IV Contrast, patient injected with 100 mL of Isovue 300. Images obtained from the thoracic inlet to the floor the pelvis with IV contrast. There is some mild subpleural reticular nodular peripheral pulmonary infiltrates. There is no pleural effusion. Heart size is fairly normal. There is no pericardial effusion. There is no mediastinal lowell nopathy. There are pretracheal lymph nodes up to 1 cm. There are no hilar masses. There is no pleural effusion. There is cardiac surgery. There are sternal wires. There is coronary artery stent. There i s aortic valve surgery. Liver shows no focal defect. The bile ducts are not dilated. Spleen is enlarged and measures 17.5 cm. There is no pancreatic mass. Anterior liver margin is irregular and suggestive of cirrhosis. There i s no discrete liver mass. There are clips from cholecystectomy. There is no pancreatic mass. There is no adrenal mass. Kidneys show satisfactory contrast opacification. There is no hydronephrosi s. There is no evidence of a renal solid mass. There is no retroperitoneal adenopathy. Bladder disten ds smoothly. There is no inguinal hernia. There is small amount of low-density fluid in the pelvis. U terus is anteverted. Lumbar and thoracic vertebra. Intact. There is no compression fracture. The ster num is intact. Bony pelvis is intact. Hip joints are intact. The shoulder joints appear intact. IMPRESSION: Irregular liver margin suggestive of cirrhosis and not changed compared to old exam. There is splenom egaly increased compared to old exam. No evidence of portal vein thrombosis. No sign of any significa nt varices. There is a new mild peripheral patchy reticular nodular pulmonary infiltrate in both lungs compared t o old exam. This is likely inflammatory.
[2021-11-06] MEDS: LEVOTHYROXINE 137 MCG TAB PO SCH ×2 (05:33→10:03)
[2021-11-06] MEDS: SYMBICORT 80-4.5 MCG INHALER INHALATION SCH ×2 (07:33→20:03)
--- NOTE | 2021-11-06 08:56 | P.CONS ---
<Starla Clement - Last Filed: 11/06/21 20:30> History of Present Illness - Reason for Consult Consult date: 11/06/21 Pancytopenia Requesting physician: Rajesh Figueroa - History of Present Illness Mrs. Crabtree is a 60-year-old female who was sent to the emergency department sent in by her primary medical doctor for abnormal hemoglobin. Patie nt denies any previous history of anemia. She denies any visible blood loss or black stools. She denies any abdominal pain, nausea, or vomiting. She denies any previous history of peptic ulcer disease or GERD. She has had a previous EGD or colonoscopy but many years ago. She admits to increased dyspnea on exertion. On admission her hemoglobin was 6.6. Repeat labs today WBC 1.13, hemoglobin 5.5 hematocrit 20.0 platelet count 94,000 INR 1.4. 19 ferritin 26 total bilirubin 1.5 AST 33 ALT 19 alkaline phosphatase 97. Patient does state that she has a history of fatty liver. She also does have a history of bowel disease and underwent bovine valve replacement approximately 2 years ago, and is currently on [place]. We have been asked to evaluate due to pancytopenia with iron deficiency anemia. Past Medical History Past Medical History: Atrial Fibrillation, Heart Failure, Diabetes Mellitus, GERD/Reflux, Hyperlipidemia, Hypertension, Liver Disease, Osteoarthritis (OA), Sleep Apnea/CPAP/BIPAP, Thyroid Disorder Additional Past Medical History / Comment(s): Covid pneumonia 09/2021, NIDDM type II, post aortic valve replacement Afib/converted, enlarged fatty liver, DEISI with Cpap, chronic low back pain with spinal stenosis/DDD, CHF with bilateral pleural effusions/bilateral thoracentesis when pt had valve surgery, hypothyroid, arthritis in multiple joints History of Any Multi-Drug Resistant Organisms: None Reported Past Surgical History: Appendectomy, Cardiac Valve Replacement, Cholecystectomy, Heart Catheterization, Orthopedic Surgery, Tonsillectomy, Tubal Ligation Additional Past Surgical History / Comment(s): TREY, 2019 bioprosthetic aortic valve surgery/clip L atrial appendage/post op bilateral thoracentesis, thyroid removed d/t hyperactivity, r foot bunionectomy. Past Anesthesia/Blood Transfusion Reactions: Postoperative Nausea & Vomiting (PONV) Additional Past Anesthesia/Blood Transfusion Reaction / Comm: no hx blood transfusion Smoking Status: Former smoker - Past Family History Mother Family Medical History: CVA/TIA Additional Family Medical History / Comment(s): Mother of a blood clot in her brainstem. Father Family Medical History: Cancer, Congestive Heart Failure (CHF), COPD Additional Family Medical History / Comment(s): colon cancer Medications and Allergies Home Medications Medication Instructions Recorded Confirmed Type Cholecalciferol (Vitamin D3) 2,000 unit PO DAILY 03/27/19 11/05/21 History [Vitamin D3] Citalopram Hydrobromide [CeleXA] 40 mg PO DAILY 03/27/19 11/05/21 History Atorvastatin [Lipitor] 40 mg PO HS #30 tab 05/05/19 11/05/21 Rx Apixaban [Eliquis] 5 mg PO BID #60 tab 05/09/19 11/05/21 Rx Levothyroxine Sodium [Synthroid] 137 mcg PO DAILY 05/21/19 11/05/21 History Cetirizine HCl [Zyrtec] 10 mg PO DAILY 09/30/21 11/05/21 History Famotidine [Pepcid] 20 mg PO BID 09/30/21 11/05/21 History Fluticasone Nasal [place] [Flonase 2 spray EA NOSTRIL DAILY PRN 09/30/21 11/05/21 History Nasal [place]] HYDROcodone/APAP 7.5-325MG [[place] 1 tab PO Q4H PRN 09/30/21 11/05/21 History 7.5-325] QUEtiapine FUMARATE 100 mg PO HS 09/30/21 11/05/21 History metFORMIN HCL [Glucophage] 500 mg PO BID 09/30/21 11/05/21 History Albuterol Sulfate [Proair Hfa] 2 puff INHALATION RT-Q6H PRN 11/05/21 11/05/21 History Fluticasone/Salmeterol [Advair 1 puff INHALATION RT-BID 11/05/21 11/05/21 History 250-50 Diskus] Metoprolol Tartrate [Lopressor] 25 mg PO DAILY 11/05/21 11/05/21 History Allergies Allergy/AdvReac Type Severity Reaction Status Date / Time Iodinated Contrast Media Allergy Severe Vomiting/ra Verified 11/05/21 14:47 [Iodinated Contrast- Oral sh/itching and IV Dye] latex Allergy Itching/queta Verified 11/05/21 14:47 h adhesive tape Allergy Itching/queta Uncoded 11/05/21 09:33 h Physical Exam Vitals: Vital Signs Temp Pulse Pulse Resp BP BP Pulse Ox 11/06/21 03:56 97.8 F 83 16 139/55 96 11/05/21 20:15 16 11/05/21 20:00 98.2 F 71 16 170/69 99 11/05/21 18:27 98.1 F 79 16 171/63 99 11/05/21 17:04 97.9 F 70 145/59 11/05/21 12:00 98.1 F 81 18 139/59 98 Intake and Output 11/05/21 11/06/21 11/06/21 22:59 06:59 14:59 Other: Voiding Method Toilet # Voids 3 Weight 108.862 kg - Constitutional General appearance: cooperative - EENT Eyes: EOMI ENT: NA/AT - Neck Neck: normal ROM - Respiratory Respiratory: bilateral: diminished - Cardiovascular Rhythm: regularly irregular - Gastrointestinal General gastrointestinal: soft, tenderness - Integumentary Integumentary: pale - Neurologic Neurologic: CNII-XII intact - Musculoskeletal Musculoskeletal: gait normal - Psychiatric Psychiatric: A&O x's 3 Results CBC & Chem 7: 11/06/21 19:23 11/06/21 06:20 Labs: Abnormal Lab Results - Last 24 Hours (Table) 11/05/21 11/05/21 11/05/21 Range/Units 12:55 12:55 12:55 WBC 1.9 L (3.8-10.6) k/uL RBC 2.85 L (3.80-5.40) m/uL Hgb 6.6 L* (11.4-16.0) gm/dL Hct 22.1 L (34.0-46.0) % MCV 77.7 L (80.0-100.0) fL MCH 23.2 L (25.0-35.0) pg MCHC 29.8 L (31.0-37.0) g/dL RDW 17.2 H (11.5-15.5) % Plt Count 108 L (150-450) k/uL Neutrophils # 0.9 L (1.3-7.7) k/uL Lymphocytes # 0.7 L (1.0-4.8) k/uL PT 14.4 H (9.0-12.0) sec INR 1.4 H (<1.2) Chloride 115 H (98-107) mmol/L Carbon Dioxide 20 L (22-30) mmol/L Glucose 109 H (74-99) mg/dL Calcium 8.3 L (8.4-10.2) mg/dL Iron (50-170) ug/dL % Saturation (12.00-45.00) Total Bilirubin 1.5 H (0.2-1.3) mg/dL Albumin 3.0 L (3.5-5.0) g/dL 11/05/21 11/05/21 Range/Units 12:55 20:06 WBC 1.1 L* (3.8-10.6) k/uL RBC 3.05 L (3.80-5.40) m/uL Hgb 6.5 L* (11.4-16.0) gm/dL Hct 23.7 L (34.0-46.0) % MCV 77.9 L (80.0-100.0) fL MCH 21.3 L (25.0-35.0) pg MCHC 27.4 L (31.0-37.0) g/dL RDW 17.1 H (11.5-15.5) % Plt Count 107 L (150-450) k/uL Neutrophils # 0.7 L (1.3-7.7) k/uL Lymphocytes # 0.4 L (1.0-4.8) k/uL PT (9.0-12.0) sec INR (<1.2) Chloride (98-107) mmol/L Carbon Dioxide (22-30) mmol/L Glucose (74-99) mg/dL Calcium (8.4-10.2) mg/dL Iron 19 L (50-170) ug/dL % Saturation 4.58 L (12.00-45.00) Total Bilirubin (0.2-1.3) mg/dL Albumin (3.5-5.0) g/dL Assessment and Plan (1) Microcytic anemia Narrative/Plan: - History of bovine valve need to assess for hemolysis - evidence of iron deficiency anemia, will need gi evaluation, Dr. Figueroa following Current Visit: Yes Status: Acute Code(s): D50.9 - IRON DEFICIENCY ANEMIA, UNSPECIFIED SNOMED Code(s): 655861397 (2) Pancytopenia Narrative/Plan: - Sparrow cultures - In trending labs,mildly decreased WBC in 2019, however prior wnl. - Full pancytopenia work-up ordered, this maybe related to acute inflammatory or infectious process, however underlying bone marrow suppression from other etiology is possible at baseline and worsening with acute infection/inflammation - Bovine valve also needs to be considered in this case, hemolysis ordereds also drawn. she will need endoscopy for the compoentnt of iron deficiency Parental iron ordered Physiician attest: I have completed the full history an physical and agree with above dictation, dictated as a scribe Current Visit: Yes Status: Acute Code(s): D61.818 - OTHER PANCYTOPENIA SNOMED Code(s): 398739900 <Raji,Juan - Last Filed: 11/07/21 23:37> Physical Exam Vitals: Vital Signs Temp Pulse Resp BP Pulse Ox 11/07/21 12:48 97.5 F L 73 20 165/72 100 11/07/21 08:46 83 20 168/77 97 11/07/21 05:26 97.6 F 77 18 147/74 96 Intake and Output 11/07/21 11/07/21 11/08/21 14:59 22:59 06:59 Intake Total 200 540 Balance 200 540 Intake: IV 200 Oral 540 Other: Voiding Method Toilet Toilet # Voids 0 # Bowel Movements 0 Results CBC & Chem 7: 11/07/21 06:30 11/07/21 06:30 Labs: Abnormal Lab Results - Last 24 Hours (Table) 11/07/21 11/07/21 11/07/21 Range/Units 06:30 06:30 06:30 WBC 2.8 L (3.8-10.6) k/uL RBC 3.20 L (3.80-5.40) m/uL Hgb 7.4 L (11.4-16.0) gm/dL Hct 25.4 L (34.0-46.0) % MCV 79.4 L (80.0-100.0) fL MCH 23.0 L (25.0-35.0) pg MCHC 29.0 L (31.0-37.0) g/dL RDW 17.1 H (11.5-15.5) % Plt Count 108 L (150-450) k/uL Lymphocytes # 0.8 L (1.0-4.8) k/uL PT 15.1 H (9.0-12.0) sec INR 1.5 H (<1.2) POC Glucose (mg/dL) (75-99) mg/dL Calcium 8.3 L (8.7-10.3) mg/dL Total Bilirubin 1.40 H (0.30-1.20) mg/dL Lactate Dehydrogenase 292 H (120-246) U/L Albumin 3.4 L (3.8-4.9) g/dL Globulin 3.4 H (1.6-3.3) g/dL Albumin/Globulin Ratio 1.00 L (1.60-3.17) g/dL TSH 0.288 L (0.350-5.500) uIU/mL 11/07/21 11/07/21 11/07/21 Range/Units 12:40 17:10 20:44 WBC (3.8-10.6) k/uL RBC (3.80-5.40) m/uL Hgb (11.4-16.0) gm/dL Hct (34.0-46.0) % MCV (80.0-100.0) fL MCH (25.0-35.0) pg MCHC (31.0-37.0) g/dL RDW (11.5-15.5) % Plt Count (150-450) k/uL Lymphocytes # (1.0-4.8) k/uL PT (9.0-12.0) sec INR (<1.2) POC Glucose (mg/dL) 113 H 163 H 122 H (75-99) mg/dL Calcium (8.7-10.3) mg/dL Total Bilirubin (0.30-1.20) mg/dL Lactate Dehydrogenase (120-246) U/L Albumin (3.8-4.9) g/dL Globulin (1.6-3.3) g/dL Albumin/Globulin Ratio (1.60-3.17) g/dL TSH (0.350-5.500) uIU/mL Assessment and Plan (1) Anemia Narrative/Plan: Major component appears to be iron def due to blood loss. Given CT findings re the lieve, portal gastropathy causing decreased absorption could also be a contr ibuting factor - Rec GI endoscopic w/u - Monitor and transfuse to keep Hgb > 6.5 - IV iron Current Visit: Yes Status: Acute Code(s): D64.9 - ANEMIA, UNSPECIFIED SNOMED Code(s): 243788807 (2) Pancytopenia Narrative/Plan: As above Pre existing, with anemia etiology as noted above. WBC and plt lower than normal at baseline due to chronic liver disease, lorene splenic sequestration. Current drop from baseline likely due to additional marrow stress from acute on chronic blood loss - WBC and plt are in safe range, with ANC > 500 with no evidence of fever. Continue to monitor and supplement if needed Current Visit: Yes Status: Acute Code(s): D61.818 - OTHER PANCYTOPENIA SNOMED Code(s): 741542891
[2021-11-06 09:44] LABS: Anion Gap 9.6 mmol/L (10.00-18.00); BUN/Creat Ratio 15.34 Ratio (12.00-20.00); Blood Urea Nitrogen 8.6 mg/dL (9.0-27.0); Carbon Dioxide 19.6 mmol/L (20.0-27.5); Non-African American GFR(CKD) 100.1 (60.0-200.0)
[2021-11-06] MEDS: INSULIN ASPART (NovoLOG) 100 UNIT/ML VIAL SQ SCH ×3 (09:51→18:21)
[2021-11-06] MEDS: CHOLECALCIFEROL 25 MCG (1000 IU) TABLET PO SCH (10:02)
[2021-11-06] MEDS: CITALOPRAM HYDROBROMIDE 20 MG TAB PO SCH (10:02)
[2021-11-06] MEDS: METOPROLOL TARTRATE 25 MG TAB PO SCH (10:03)
[2021-11-06] MEDS: LORATADINE 10 MG TAB PO SCH (10:03)
[2021-11-06] MEDS: FAMOTIDINE 20 MG TAB PO SCH ×2 (10:03→21:36)
[2021-11-06] MEDS: HYDROcodone/APAP 7.5-325MG 1 EACH TAB PO PRN ×2 (10:17→21:41)
[2021-11-06 10:33] LABS: Basophils # (A) 0 X 10*3/uL (0.00-0.10); Basophils % (A) 0 %; Eosinophils # (A) 0 X 10*3/uL (0.04-0.35); Eosinophils % (A) 0 %; HGB 5.5 g/dL (12.0-15.0); Hypochromasia (M) 2+; Immature Grans, Automated 0.9 %; Lymphocytes # (A) 0.28 X 10*3/uL (0.90-5.00); Lymphocytes % (A) 24.8 %; MCH 20.7 pg (27.0-32.0); MCHC 27.5 g/dL (32.0-37.0); MCV 75.2 fL (80.0-97.0); Mean Platelet Volume 10.7 fL (9.5-12.2); Monocytes # (A) 0.04 X 10*3/uL (0.20-1.00); Monocytes % (A) 3.5 %; NRBC Per 100 WBC 0 /100 WBCS (0.0-0.0); Neutrophils % (A) 70.8 %; Platelet Count 94 X 10*3/uL (140-440); RBC 2.66 X 10*6/uL (4.10-5.20); RDW 17.9 % (11.5-14.5); WBC 1.13 X 10*3/uL (4.50-10.00)
[2021-11-06 11:09] LABS: Glucose,Whole Blood 185 mg/dL (75-99)
--- NOTE | 2021-11-06 12:56 | P.CONS ---
History of Present Illness - Reason for Consult Consult date: 11/06/21 Anemia Requesting physician: Rajesh Figueroa - Chief Complaint abnormal labs, dyspnea on exertion - History of Present Illness This is 60-year-old female who was told to come to the emergency department sent in by her primary medical doctor for abnormal lab work. Patient states she was having preop blood work done for back surgery and was told her labs were abnormal G needle come to the emergency room for a low hemoglobin. Patient denies any previous history of anemia. She denies any blood or black stools. She denies any abdominal pain, nausea, or vomiting. She denies any previous history of peptic ulcer disease or GERD. She has not had a previous EGD or colonoscopy in the past. She does state though she has been feeling tired and weak dyspnea on exertion. States is difficult for her to walk from the couch to the bathroom. She denies any previous blood transfusions. On admission her hemoglobin was 6.6. Repeat labs today WBC 1.13, hemoglobin 5.5 hematocrit 20.0 platelet count 94,000 INR 1.4. 19 ferritin 26 transferrin 301 total bilirubin 1.5 AST 33 ALT 19 alkaline phosphatase 97. Patient does state that she has a history of fatty liver. States she has seen Dr. Figueroa in the past but not recently. States her primary care physician has been following. She also does have a history of bowel disease and underwent bovine valve replacement appro ximately 2 years ago, and is currently on [place]. Last taken yesterday. Review of Systems REVIEW OF SYSTEMS: CARDIOPULMONARY: No chest pain. Weakness. Dyspnea on exertion. Gastrointestinal: No abdominal pain.. No nausea or vomiting. No hematemesis, coffee-ground emesis. No rectal bleeding, or melena. GENITOURINARY: No dysuria or hematuria. MUSCULOSKELETAL: Reports normal range of motion., Joint pain. SKIN: No rashes. No jaundice. ENDOCRINE: No chills, fevers. No excessive weight gain or loss. No polydipsia or polyuria. PSYCHIATRIC: Unremarkable. NEUROLOGY: No change in mental status. Denies dizziness, headache. ENT: Vision unremarkable. CONSTITUTIONAL: No recent weight loss. No fever, chills, night sweats. Past Medical History Past Medical History: Atrial Fibrillation, Heart Failure, Diabetes Mellitus, GERD/Reflux, Hyperlipidemia, Hypertension, Liver Disease, Osteoarthritis (OA), Sleep Apnea/CPAP/BIPAP, Thyroid Disorder Additional Past Medical History / Comment(s): Covid pneumonia 09/2021, NIDDM type II, post aortic valve replacement Afib/converted, enlarged fatty liver, DEISI with Cpap, chronic low back pain with spinal stenosis/DDD, CHF with bilateral pleural effusions/bilateral thoracentesis when pt had valve surgery, hypothyroid, arthritis in multiple joints History of Any Multi-Drug Resistant Organisms: None Reported Past Surgical History: Appendectomy, Cardiac Valve Replacement, Cholecystectomy, Heart Catheterization, Orthopedic Surgery, Tonsillectomy, Tubal Ligation Additional Past Surgical History / Comment(s): TREY, 2019 bioprosthetic aortic valve surgery/clip L atrial appendage/post op bilateral thoracentesis, thyroid removed d/t hyperactivity, r foot bunionectomy. Past Anesthesia/Blood Transfusion Reactions: Postoperative Nausea & Vomiting (PONV) Additional Past Anesthesia/Blood Transfusion Reaction / Comm: no hx blood tra nsfusion Smoking Status: Former smoker - Past Family History Mother Family Medical History: CVA/TIA Additional Family Medical History / Comment(s): Mother of a blood clot in her brainstem. Father Family Medical History: Cancer, Congestive Heart Failure (CHF), COPD Additional Family Medical History / Comment(s): colon cancer Medications and Allergies Home Medications Medication Instructions Recorded Confirmed Type Cholecalciferol (Vitamin D3) 2,000 unit PO DAILY 03/27/19 11/05/21 History [Vitamin D3] Citalopram Hydrobromide [CeleXA] 40 mg PO DAILY 03/27/19 11/05/21 History Atorvastatin [Lipitor] 40 mg PO HS #30 tab 05/05/19 11/05/21 Rx Apixaban [Eliquis] 5 mg PO BID #60 tab 05/09/19 11/05/21 Rx Levothyroxine Sodium [Synthroid] 137 mcg PO DAILY 05/21/19 11/05/21 History Cetirizine HCl [Zyrtec] 10 mg PO DAILY 09/30/21 11/05/21 History Famotidine [Pepcid] 20 mg PO BID 09/30/21 11/05/21 History Fluticasone Nasal [place] [Flonase 2 spray EA NOSTRIL DAILY PRN 09/30/21 11/05/21 History Nasal [place]] HYDROcodone/APAP 7.5-325MG [[place] 1 tab PO Q4H PRN 09/30/21 11/05/21 History 7.5-325] QUEtiapine FUMARATE 100 mg PO HS 09/30/21 11/05/21 History metFORMIN HCL [Glucophage] 500 mg PO BID 09/30/21 11/05/21 History Albuterol Sulfate [Proair Hfa] 2 puff INHALATION RT-Q6H PRN 11/05/21 11/05/21 History Fluticasone/Salmeterol [Advair 1 puff INHALATION RT-BID 11/05/21 11/05/21 History 250-50 Diskus] Metoprolol Tartrate [Lopressor] 25 mg PO DAILY 11/05/21 11/05/21 History Allergies Allergy/AdvReac Type Severity Reaction Status Date / Time Iodinated Contrast Media Allergy Severe Vomiting/ra Verified 11/05/21 14:47 [Iodinated Contrast- Oral sh/itching and IV Dye] latex Allergy Itching/queta Verified 11/05/21 14:47 h adhesive tape Allergy Itching/queat Uncoded 11/05/21 09:33 h Physical Exam Vitals: Vital Signs Temp Pulse Pulse Resp BP BP Pulse Ox 11/06/21 03:56 97.8 F 83 16 139/55 96 11/05/21 20:15 16 11/05/21 20:00 98.2 F 71 16 170/69 99 11/05/21 18:27 98.1 F 79 16 171/63 99 11/05/21 17:04 97.9 F 70 145/59 11/05/21 12:00 98.1 F 81 18 139/59 98 Intake and Output 11/05/21 11/06/21 11/06/21 22:59 06:59 14:59 Other: Voiding Method Toilet # Voids 3 Weight 108.862 kg General appearance: The patient is alert, oriented, appears in no acute distress. HET: Head is normocephalic and atraumatic. Conjunctiva pink. Sclera anicteric. Neck: Supple without lymphadenopathy. Trachea midline. Heart: S1 S2. Regular rate and rhythm. Lungs: Clear to auscultation. Abdomen: Soft, epigastric tenderness, nondistended with bowel sounds. No guarding or rigidity. Skin: No rashes. No jaundice. Extremities: Normal skin color and turgor. No pedal edema. Neurological: No focal deficits. Alert and oriented x3. Results CBC & Chem 7: 11/06/21 06:20 11/06/21 06:20 Labs: Abnormal Lab Results - Last 24 Hours (Table) 11/05/21 11/05/21 11/05/21 Range/Units 12:55 12:55 12:55 WBC 1.9 L (3.8-10.6) k/uL RBC 2.85 L (3.80-5.40) m/uL Hgb 6.6 L* (11.4-16.0) gm/dL Hct 22.1 L (34.0-46.0) % MCV 77.7 L (80.0-100.0) fL MCH 23.2 L (25.0-35.0) pg MCHC 29.8 L (31.0-37.0) g/dL RDW 17.2 H (11.5-15.5) % Plt Count 108 L (150-450) k/uL Neutrophils # 0.9 L (1.3-7.7) k/uL Lymphocytes # 0.7 L (1.0-4.8) k/uL PT 14.4 H (9.0-12.0) sec INR 1.4 H (<1.2) Chloride 115 H (98-107) mmol/L Carbon Dioxide 20 L (22-30) mmol/L Glucose 109 H (74-99) mg/dL Calcium 8.3 L (8.4-10.2) mg/dL Iron (50-170) ug/dL % Saturation (12.00-45.00) Total Bilirubin 1.5 H (0.2-1.3) mg/dL Albumin 3.0 L (3.5-5.0) g/dL 11/05/21 11/05/21 Range/Units 12:55 20:06 WBC 1.1 L* (3.8-10.6) k/uL RBC 3.05 L (3.80-5.40) m/uL Hgb 6.5 L* (11.4-16.0) gm/dL Hct 23.7 L (34.0-46.0) % MCV 77.9 L (80.0-100.0) fL MCH 21.3 L (25.0-35.0) pg MCHC 27.4 L (31.0-37.0) g/dL RDW 17.1 H (11.5-15.5) % Plt Count 107 L (150-450) k/uL Neutrophils # 0.7 L (1.3-7.7) k/uL Lymphocytes # 0.4 L (1.0-4.8) k/uL PT (9.0-12.0) sec INR (<1.2) Chloride (98-107) mmol/L Carbon Dioxide (22-30) mmol/L Glucose (74-99) mg/dL Calcium (8.4-10.2) mg/dL Iron 19 L (50-170) ug/dL % Saturation 4.58 L (12.00-45.00) Total Bilirubin (0.2-1.3) mg/dL Albumin (3.5-5.0) g/dL Assessment and Plan (1) Microcytic anemia Narrative/Plan: 60-year-old female with a history of nonalcoholic fatty liver disease presented to the emergency department directed by her PCP for abnormal labs. Patient was known to have a low hemoglobin was told to come to the emergency room for further evaluation. Patient has a microcytic anemia consistent with an iron deficiency anemia as well as evidence of pancytopenia. There may be some component related to her underlying liver disease. A shunt denies any black stool or blood in her stool. Patient has not had an EGD or colonoscopy in the past, recommend proceeding with upper and lower endoscopy to rule out any source of GI bleed and iron deficiency anemia. Current Visit: Yes Status: Acute Code(s): D50.9 - IRON DEFICIENCY ANEMIA, UNSPECIFIED SNOMED Code(s): 988889034 (2) Nonalcoholic steatohepatitis (CALLEJAS) Current Visit: Yes Status: Acute Code(s): K75.81 - NONALCOHOLIC STEATOHEPATITIS (CALLEJAS) SNOMED Code(s): 508044914 (3) Pancytopenia Current Visit: Yes Status: Acute Code(s): D61.818 - OTHER PANCYTOPENIA SNOMED Code(s): 816309977 Plan: 1. Continue symptomatic and supportive care 2. Clear liquid diet, nothing by mouth after midnight 3. Repeat CBC in the morning 4. Agree with PRBC transfusion 5. Protonix for GI prophylaxis 6. Agree with hematology consult. 7. Bowel prep this afternoon 8. Will proceed with EGD and colonoscopy tomorrow. Procedure discussed with patient and her daughter on the phone in detail including risks and benefits. Patient is agreeable to proceed 9. Recommend outpatient follow-up with Dr. Figueroa for liver surveillance Thank you for allowing us to participate in the care of the patient, the GI service will sign off, gastroenterology will not be available at the hospital this weekend and through next week. If further evaluation by gastroenterology is required the patient will need transfer as per the primary team's discretion. Dr. Chino Figueroa I agree with the dictator's note, documented as a scribe by Farhana Gray.
[2021-11-06] MEDS ORDERED: PEG 3350-NA SULF,BICARB,CL/KCL 4,000 ML BOTTLE PO ONE (14:00)
[2021-11-06 15:51] LABS: Reticulocyte % 1.67 % (0.10-1.80)
[2021-11-06 15:54] LABS: ALT 18 U/L (8-44); AST 25 U/L (13-35); Albumin 3.2 g/dL (3.8-4.9); Albumin/Globulin Ratio 0.97 (1.60-3.17); Alkaline Phosphatase 76 U/L (41-126); Bilirubin, Conjugated 0.48 mg/dL (0.20-0.40); Bilirubin,Unconjugated 0.72 mg/dL (0.20-1.00); Globulin 3.3 g/dL (1.6-3.3); LDH 278 U/L (120-246); Total Protein 6.5 g/dL (6.2-8.2)
[2021-11-06 15:57] LABS: Rheumatoid Factor, Qnt <10 IU/mL (0-15)
[2021-11-06 18:02] LABS: Glucose,Whole Blood 93 mg/dL (75-99)
--- NOTE | 2021-11-06 18:39 | P.PN ---
Progress Note - Text Progress Note Date: 11/06/21 Chief Complaint: Low hemoglobin Hospital course: This is a pleasant 60-year-old patient of .. Chronic stable medical conditions include hypertension, hypothyroid, fatty liver, depression. History of aortic valve replacement. Shortly after she had developed atrial fibrillation for which she eliquis. Patient is due to have back surgery by Dr. Chavez [facility] and has a preop blood work she had a hemoglobin done. Came back at 6.6. And she is being admitted. Patient for about 2 weeks at least she has been feeling weak tired is a legs feel wobbly. Increase in shortness of breath. She is also noticed that she lost about 10 pounds as her appetite is not good. Denies any black stools. She does look in the stool before she flushes the toilet. No fever no chills. November 06: Hemoglobin 5.5 this morning. Unit of blood ordered. Patient seen by hematology. Workup in place. Computed tomography scan of the abdomen ordered yesterday did not show any evidence of malignancy. Care was discussed with the patient. Tired. Endoscopy scheduled tomorrow Review of systems: Was done for constitutional, cardiovascular, GI, pulmonary. relevant finding as above Active Medications Acetaminophen (Acetaminophen Tab 325 Mg Tab) 650 mg PO Q6HR PRN PRN Reason: Mild Pain or Fever > 100.5 Hydrocodone Bitart/Acetaminophen (Hydrocodone/Apap 7.5-325mg 1 Each Tab) 1 each PO Q4H PRN PRN Reason: Pain Last Admin: 11/06/21 10:17 Dose: 1 each Documented by: Albuterol Sulfate (Albuterol Nebulized 2.5 Mg/3 Ml) 2.5 mg INHALATION RT-Q6H PRN PRN Reason: Shortness Of Breath Alprazolam (Alprazolam 0.25 Mg Tab) 0.25 mg PO Q6HR PRN PRN Reason: Anxiety Atorvastatin Calcium (Atorvastatin 40 Mg Tab) 40 mg PO HS LATRELL Last Admin: 11/05/21 20:03 Dose: 40 mg Documented by: Barium Sulfate (Barium Sulfate 450 Ml Oral.Susp Bottle) 450 ml PO Q3HR PRN PRN Reason: CT Scan Stop: 11/06/21 20:42 Last Admin: 11/05/21 23:30 Dose: 450 ml Documented by: Budesonide/Formoterol Fumarate (Symbicort 80-4.5 Mcg Inhaler) 2 puff INHALATION RT-BID [facility] Last Admin: 11/06/21 07:33 Dose: 2 puff Documented by: Calcium Carbonate/Glycine (Calcium Carbonate 500 Mg Chewable) 1,000 mg PO Q4HR PRN PRN Reason: Dyspepsia Cholecalciferol (Cholecalciferol 25 Mcg (1000 Iu) Tablet) 50 mcg PO DAILY [facility] Last Admin: 11/06/21 10:02 Dose: 50 mcg Documented by: Citalopram Hydrobromide (Citalopram Hydrobromide 20 Mg Tab) 40 mg PO DAILY [facility] Last Admin: 11/06/21 10:02 Dose: 40 mg Documented by: Famotidine (Famotidine 20 Mg Tab) 20 mg PO BID [facility] Last Admin: 11/06/21 10:03 Dose: 20 mg Documented by: Insulin Aspart (Insulin Aspart (Novolog) 100 Unit/Ml Vial) 0 unit SQ AC-TID [facility]; Protocol Last Admin: 11/06/21 18:21 Dose: Not Given Documented by: Lactulose (Lactulose 20 Gm/30 Ml Cup) 20 gm PO DAILY PRN PRN Reason: Constipation Levothyroxine Sodium (Levothyroxine 137 Mcg Tab) 137 mcg PO DAILY@0630 [facility] Last Admin: 11/06/21 10:03 Dose: 137 mcg Documented by: Loratadine (Loratadine 10 Mg Tab) 10 mg PO DAILY [facility] Last Admin: 11/06/21 10:03 Dose: 10 mg Documented by: Melatonin (Melatonin 3 Mg Tablet) 3 mg PO HS PRN PRN Reason: Insomnia Metoprolol Tartrate (Metoprolol Tartrate 25 Mg Tab) 25 mg PO DAILY [facility] Last Admin: 11/06/21 10:03 Dose: 25 mg Documented by: Naloxone HCl (Naloxone 0.4 Mg/Ml 1 Ml Vial) 0.2 mg IV Q2M PRN PRN Reason: Opioid Reversal Ondansetron HCl (Ondansetron 4 Mg/2 Ml Vial) 4 mg IVP Q8HR PRN PRN Reason: Nausea And Vomiting Quetiapine Fumarate (Quetiapine 100 Mg Tab) 100 mg PO HS [facility] Last Admin: 11/05/21 20:06 Dose: 100 mg Documented by: Past medical history to include: Hypertension, hypothyroid, fatty liver, depression, aortic valve replacement, paroxysmal atrial fibrillation with eliquis, DJD spine Social history: Lives alone. Smoked half a pack and about 40 years stopped in 2017. No alcohol. Family history: Reviewed, unremarkable Physical examination: VITAL SIGNS: 98, 71, 18, 103/67, 97% room air GENERAL: Sitting at the edge of the bed, comfortable EYES: Pupils equal. Conjunctiva pale. HEENT: External appearance of nose and ears normal, oral cavity grossly normal. NECK: JVD not raised; masses not palpable. HEART: First and second heart sounds are normal; no edema. LUNGS: Respiratory rate normal; clear to auscultation. ABDOMEN: Soft, nontender, liver spleen not palpable, no masses palpable. PSYCH: Alert and oriented x3; mood and affect normal. MUSCULOSKELETAL:No Clubbing/cyanosis;muscles-grossly intact NEUROLOGICAL: Cranial nerves grossly intact; no facial asymmetry, power and sensation grossly intact. Investigations, reviewed in the clinical context: November 06: White count 1.1 hemoglobin 5.5 platelets 94 potassium 4 creatinine 0.6 LDH 278 IgG 2091 IgA 318 IgG and 176 rheumatoid factor less than 10 ANUPAM screen: Negative reticulocyte count 1.67 Computed tomography scan abdomen: Findings suggestive of cirrhosis. Splenomegaly. White count 1.9 hemoglobin 6.6 platelets 108 potassium 3.9 creatinine 0.53 Stool occult blood negative Coronavirus [PCR]: Not detected Previous labs: May 2019 White count 3.4 hemoglobin 9 platelets 132 Assessment and plan: -This is a patient who is presents with symptomatic, microcytic anemia. Note that the patient has loss of appetite and weight loss. Consultation to GI and hematology. Transfuse blood. Pending endoscopy. -Pancytopenia. Note that patient's serum lites were low in May 2019. He to rule out underlying bone marrow issues. Myelodysplasia the differential. Also cirrhosis noted on computed tomography scan Hematology consulted -Paroxysmal atrial fibrillation Hold eliquis. Continue metoprolol -Aortic valve replacement with Simon bioprosthetic aortic valve Consider possibility of hemolysis -Obesity BMI 38.7 Weight loss measures -Essential hypertension Lopressor 25 mg daily -Cirrhosis with possible portal hypertension with splenomegaly Follow with Dr. Chino Figueroa -Hypothyroidism Synthroid 137 g daily -Depression otherwise specified Celexa 40 mg daily. Seroquel 100 mg daily at bedtime -Chronic lower back DJD pending surgery by from [facility] [place] 7.5 every 4 when necessary -COPD in a previous smoker Advair 250/50 one puff twice a day, pro-air when necessary Possible cirrhosis with splenomegaly results discussed with the patient. Follow with GI. 1 unit of blood. For endoscopy tomorrow.
[2021-11-06 18:41] LABS: Haptoglobin <10.0 mg/dL (31.2-198.0)
[2021-11-06 20:05] LABS: Anisocytosis Slight; HCT 29.5 % (34.0-46.0); Hypochromasia Marked; MCH 23.1 pg (25.0-35.0); MCHC 28.6 g/dL (31.0-37.0); MCV 80.7 fL (80.0-100.0); Mean Platelet Volume 7.8; Microcytosis Slight; Platelet Count 130 k/uL (150-450); Poikilocytosis Moderate; RBC 3.65 m/uL (3.80-5.40); RDW 17.1 % (11.5-15.5)
[2021-11-06 20:17] LABS: HGB 8.4 gm/dL (11.4-16.0)
[2021-11-06] MEDS: QUEtiapine 100 MG TAB PO SCH (21:36)
[2021-11-07 07:20] LABS: Anisocytosis Slight; Basophils % (A) 1 %; Eosinophils % (A) 1 %; HCT 25.4 % (34.0-46.0); HGB 7.4 gm/dL (11.4-16.0); Hypochromasia Marked; Lymphocytes # (A) 0.8 k/uL (1.0-4.8); Lymphocytes % (A) 30 %; MCV 79.4 fL (80.0-100.0); Mean Platelet Volume 7.7; Microcytosis Slight; Monocytes # (A) 0.1 k/uL (0-1.0); Monocytes % (A) 4 %; Neutrophils # (A) 1.7 k/uL (1.3-7.7); Neutrophils % (A) 63 %; Platelet Count 108 k/uL (150-450); Poikilocytosis Marked; RDW 17.1 % (11.5-15.5); WBC 2.8 k/uL (3.8-10.6)
[2021-11-07 07:24] LABS: Glucose,Whole Blood 97 mg/dL (75-99)
[2021-11-07 07:25] LABS: INR 1.5 (<1.2); Prothrombin Time 15.1 sec (9.0-12.0)
[2021-11-07] MEDS ORDERED: LIDOCAINE 1% INJ 10MG/ML (20 ML MDV) ONE (07:43)
[2021-11-07] MEDS ORDERED: PROPOFOL 10 MG/ML 20 ML VIAL IV ONE (07:43)
[2021-11-07] MEDS ORDERED: SODIUM CHLORIDE 0.9% 500 ML 500 ML IV ONE ×2 (07:50)
--- NOTE | 2021-11-07 08:23 | P.PCN ---
Date of Procedure: 11/07/21 Procedure(s) Performed: Brief history: Patient is a pleasant 60-year-old white female admitted hospital with severe symptomatic iron deficiency anemia with a hemoglobin of 6.5 g/dL requiring 1 unit of PRBC transfusion. She denies any GI symptoms. She is hence scheduled for an scheduled for an upper endoscopy as well as colonoscopy today. Patient has history of valve replacement and has been on a Eliquis which has been on hold for the last 2 days. She also has history of fatty liver disease with pos sible underlying liver cirrhosis Procedure performed: Esophagogastroduodenoscopy biopsy Colonoscopy with biopsy Preoperative diagnosis: Symptomatic iron deficiency anemia and hemoglobin of 6.5 g/dL Anesthesia: MAC Procedure: After informed consent was obtained from the patient was brought into the endoscopy unit and IV sedation was administered by anesthesia under continuous monitoring. Initially upper endoscopy was done. The Olympus GF 160 video endoscope was inserted inserted into the mouth and esophagus intubated without any difficulty and was gradually advanced into the stomach and duodenum and carefully examined. The bulb and second part of the duodenum appeared normal. Biopsies were done from the duodenum to rule out celiac disease. The scope was then withdrawn into the stomach adequately insufflated with air and upon careful examination the antrum and body, mild gastritis and biopsies were done from this area. The cardia and fundus appeared normal. The scope was then withdrawn into the esophagus. The GE junction was located at 40 cm to the incisors. It appeared regular with no erythema erosions or ulcerations. Rest of the esophagus appeared normal. Patient tolerated the procedure well. At this time the patient continued to remain sedation. Initial digital rectal examination was normal. Olympus CF 160 video pediatric colonoscope was then inserted into the rectum and gradually advanced to the cecum without any difficulty. Careful examination was performed as the scope was gradually being withdrawn. The prep was excellent. The cecum, ascending colon, appeared normal. The transverse colon there was a 5 limited polyp that was removed by cold biopsy. Rest of the transverse colon, descending colon, sigmoid colon and rectum appeared normal. Retroflexion was performed in the rectum and no lesions were noted. Patient tolerated the procedure well. Impression: 1. Upper endoscopy revealed mild antral gastritis but no evidence of peptic ulcer disease 2. Colonoscopy revealed 5 mm transverse colon polyp status post cold biopsy and the rest of the colon appeared normal Recommendations: Findings of this examination were discussed with the patient as well as her family. She was advised to follow with the biopsy results. In the meantime she'll be scheduled for small bowel capsule endoscopy today to rule out small bowel source of GI blood loss. Since there is no evidence of active bleeding, anticoagulation can be resumed today. She can be discharged home after the small bowel Endoscopy Was Done with Outpatient Follow-Up in 2 Weeks
[2021-11-07] MEDS: INSULIN ASPART (NovoLOG) 100 UNIT/ML VIAL SQ SCH ×3 (08:58→17:53)
[2021-11-07] MEDS: CHOLECALCIFEROL 25 MCG (1000 IU) TABLET PO SCH (08:59)
[2021-11-07] MEDS: LORATADINE 10 MG TAB PO SCH (08:59)
[2021-11-07] MEDS: FAMOTIDINE 20 MG TAB PO SCH ×2 (08:59→19:22)
[2021-11-07] MEDS: SYMBICORT 80-4.5 MCG INHALER INHALATION SCH ×2 (09:13→20:04)
[2021-11-07 09:33] LABS: African American GFR (CKD) 113.2 (60.0-200.0); Albumin 3.4 g/dL (3.8-4.9); Anion Gap 10.9 mmol/L (10.00-18.00); Blood Urea Nitrogen 10.2 mg/dL (9.0-27.0); Calcium 8.3 mg/dL (8.7-10.3); Carbon Dioxide 23.1 mmol/L (20.0-27.5); Globulin 3.4 g/dL (1.6-3.3); Non-African American GFR(CKD) 97.7 (60.0-200.0); Phosphorus 3.3 mg/dL (2.4-5.1); Potassium 3.8 mmol/L (3.5-5.5); Total Bilirubin 1.4 mg/dL (0.30-1.20); Total Protein 6.8 g/dL (6.2-8.2)
[2021-11-07] MEDS ORDERED: SIMETHICONE 40 MG/0.6 ML DROPS 2,000 MG/30 ML BOTTLE PO ONE (10:05)
[2021-11-07 12:43] LABS: Glucose,Whole Blood 113 mg/dL (75-99)
[2021-11-07] MEDS: METOPROLOL TARTRATE 25 MG TAB PO SCH (14:42)
[2021-11-07 17:12] LABS: Glucose,Whole Blood 163 mg/dL (75-99)
--- NOTE | 2021-11-07 17:54 | P.PN ---
Progress Note - Text Progress Note Date: 11/07/21 Chief Complaint: Low hemoglobin Hospital course: This is a pleasant 60-year-old patient of .. Chronic stable medical conditions include hypertension, hypothyroid, fatty liver, depression. History of aortic valve replacement. Shortly after she had developed atrial fibrillation for which she eliquis. Patient is due to have back surgery by Dr. Chavez from [facility] and has a preop blood work she had a hemoglobin done. Came back at 6.6. And she is being admitted. Patient for about 2 weeks at least she has been feeling weak tired is a legs feel wobbly. Increase in shortness of breath. She is also noticed that she lost about 10 pounds as her appetite is not good. Denies any black stools. She does look in the stool before she flushes the toilet. No fever no chills. November 06: Hemoglobin 5.5 this morning. Unit of blood ordered. Patient seen by hematology. Workup in place. Computed tomography scan of the abdomen ordered yesterday did not show any evidence of malignancy. Care was discussed with the patient. Tired. Endoscopy scheduled tomorrow November 07: EGD: Mild antral gastritis. Colonoscopy: 5 mm transverse colon polyp status post cold biopsy. Small bowel capsule study started. Has received 1 unit of blood. Care discussed with the patient daughter the bedside. Active Medications Acetaminophen (Acetaminophen Tab 325 Mg Tab) 650 mg PO Q6HR PRN PRN Reason: Mild Pain or Fever > 100.5 Hydrocodone Bitart/Acetaminophen (Hydrocodone/Apap 7.5-325mg 1 Each Tab) 1 each PO Q4H PRN PRN Reason: Pain Last Admin: 11/06/21 21:41 Dose: 1 each Documented by: Albuterol Sulfate (Albuterol Nebulized 2.5 Mg/3 Ml) 2.5 mg INHALATION RT-Q6H PRN PRN Reason: Shortness Of Breath Alprazolam (Alprazolam 0.25 Mg Tab) 0.25 mg PO Q6HR PRN PRN Reason: Anxiety Atorvastatin Calcium (Atorvastatin 40 Mg Tab) 40 mg PO HS LATRELL Last Admin: 11/05/21 20:03 Dose: 40 mg Documented by: Budesonide/Formoterol Fumarate (Symbicort 80-4.5 Mcg Inhaler) 2 puff INHALATION RT-BID LATRELL Last Admin: 11/07/21 09:13 Dose: 2 puff Documented by: Calcium Carbonate/Glycine (Calcium Carbonate 500 Mg Chewable) 1,000 mg PO Q4HR PRN PRN Reason: Dyspepsia Cholecalciferol (Cholecalciferol 25 Mcg (1000 Iu) Tablet) 50 mcg PO DAILY [facility] Last Admin: 11/07/21 08:59 Dose: Not Given Documented by: Citalopram Hydrobromide (Citalopram Hydrobromide 20 Mg Tab) 40 mg PO DAILY [facility] Last Admin: 11/06/21 10:02 Dose: 40 mg Documented by: Famotidine (Famotidine 20 Mg Tab) 20 mg PO BID [facility] Last Admin: 11/07/21 08:59 Dose: Not Given Documented by: Insulin Aspart (Insulin Aspart (Novolog) 100 Unit/Ml Vial) 0 unit SQ AC-TID [facility]; Protocol Last Admin: 11/07/21 13:33 Dose: Not Given Documented by: Lactulose (Lactulose 20 Gm/30 Ml Cup) 20 gm PO DAILY PRN PRN Reason: Constipation Levothyroxine Sodium (Levothyroxine 137 Mcg Tab) 137 mcg PO DAILY@0630 [facility] Last Admin: 11/06/21 10:03 Dose: 137 mcg Documented by: Loratadine (Loratadine 10 Mg Tab) 10 mg PO DAILY [facility] Last Admin: 11/07/21 08:59 Dose: Not Given Documented by: Melatonin (Melatonin 3 Mg Tablet) 3 mg PO HS PRN PRN Reason: Insomnia Metoprolol Tartrate (Metoprolol Tartrate 25 Mg Tab) 25 mg PO DAILY [facility] Last Admin: 11/07/21 14:42 Dose: 25 mg Documented by: Naloxone HCl (Naloxone 0.4 Mg/Ml 1 Ml Vial) 0.2 mg IV Q2M PRN PRN Reason: Opioid Reversal Ondansetron HCl (Ondansetron 4 Mg/2 Ml Vial) 4 mg IVP Q8HR PRN PRN Reason: Nausea And Vomiting Quetiapine Fumarate (Quetiapine 100 Mg Tab) 100 mg PO HS [facility] Last Admin: 11/06/21 21:36 Dose: 100 mg Documented by: Past medical history to include: Hypertension, hypothyroid, fatty liver, depression, aortic valve replacement, paroxysmal atrial fibrillation with eliquis, DJD spine Social history: Lives alone. Smoked half a pack and about 40 years stopped in 2017. No alcoho l. Family history: Reviewed, unremarkable Physical examination: VITAL SIGNS: 97.5, 73, 20, 165/72, 100% room air GENERAL: Reclining in bed bed, comfortable. Capsule study apparatus attached EYES: Pupils equal. Conjunctiva pale. HEENT: External appearance of nose and ears normal, oral cavity grossly normal. NECK: JVD not raised; masses not palpable. HEART: First and second heart sounds are normal; no edema. LUNGS: Respiratory rate normal; clear to auscultation. ABDOMEN: Soft, nontender, liver spleen not palpable, no masses palpable. PSYCH: Alert and oriented x3; mood and affect normal. MUSCULOSKELETAL:No Clubbing/cyanosis;muscles-grossly intact NEUROLOGICAL: Cranial nerves grossly intact; no facial asymmetry, power and sensation grossly intact. Investigations, reviewed in the clinical context: November 07: White count 2.8 hemoglobin 7.4 platelets 108 ProTime 15.1 sodium 143 potassium 3.8 creatinine 0.6 total bilirubin 1.4 LDH 292 TSH 0.2 free T4 1 0.5 November 06: White count 1.1 hemoglobin 5.5 platelets 94 potassium 4 creatinine 0.6 LDH 278 IgG 2091 IgA 318 IgG and 176 rheumatoid factor less than 10 ANUPAM screen: Negative reticulocyte count 1.67 Computed tomography scan abdomen: Findings suggestive of cirrhosis. Splenomegaly. White count 1.9 hemoglobin 6.6 platelets 108 potassium 3.9 creatinine 0.53 Stool occult blood negative Coronavirus [PCR]: Not detected Previous labs: May 2019 White count 3.4 hemoglobin 9 platelets 132 Assessment and plan: -This is a patient who is presents with symptomatic, microcytic anemia. Note that the patient has loss of appetite and weight loss. EGD and colonoscopy unremarkable. Received 1 unit of blood. -Pancytopenia. CBC was abnormal in May 2019. rule out underlying bone marrow issues. Myelodysplasia the differential. Also cirrhosis noted on computed tomography scan Follow with hematology. -Paroxysmal atrial fibrillation Hold eliquis. 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 Chino Figueroa -Hypothyroidism with some over replacement Decrease Synthroid 125 g daily -Depression otherwise specified Celexa 40 mg daily. Seroquel 100 mg daily at bedtime -Chronic lower back DJD pending surgery by from [facility] [place] 7.5 every 4 when necessary -COPD in a previous smoker Advair 250/50 one puff twice a day, pro-air when necessary Decrease Synthroid to 125 g daily. Capsule study in place. Await further input from hematology. Discussed with the patient and daughter
[2021-11-07] MEDS: ATORVASTATIN 40 MG TAB PO SCH (19:22)
[2021-11-07] MEDS: HYDROcodone/APAP 7.5-325MG 1 EACH TAB PO PRN (19:22)
[2021-11-07] MEDS: QUEtiapine 100 MG TAB PO SCH (20:42)
[2021-11-07 20:47] LABS: Glucose,Whole Blood 122 mg/dL (75-99)
[2021-11-08 07:23] LABS: Glucose,Whole Blood 111 mg/dL (75-99)
[2021-11-08] MEDS: INSULIN ASPART (NovoLOG) 100 UNIT/ML VIAL SQ SCH ×3 (07:30→17:27)
[2021-11-08] MEDS: SYMBICORT 80-4.5 MCG INHALER INHALATION SCH ×2 (08:38→19:23)
[2021-11-08] MEDS: FAMOTIDINE 20 MG TAB PO SCH ×2 (09:04→20:49)
[2021-11-08] MEDS: CHOLECALCIFEROL 25 MCG (1000 IU) TABLET PO SCH (09:04)
[2021-11-08] MEDS: LORATADINE 10 MG TAB PO SCH (09:04)
[2021-11-08] MEDS: CITALOPRAM HYDROBROMIDE 20 MG TAB PO SCH (09:04)
[2021-11-08] MEDS: METOPROLOL TARTRATE 25 MG TAB PO SCH (09:04)
[2021-11-08] MEDS: HYDROcodone/APAP 7.5-325MG 1 EACH TAB PO PRN (09:08)
[2021-11-08 11:29] LABS: Anisocytosis Slight; Basophils % (A) 1 %; Eosinophils % (A) 1 %; HCT 25.6 % (34.0-46.0); HGB 7.3 gm/dL (11.4-16.0); Hypochromasia Marked; Lymphocytes # (A) 0.9 k/uL (1.0-4.8); Lymphocytes % (A) 32 %; MCH 22.8 pg (25.0-35.0); MCHC 28.5 g/dL (31.0-37.0); MCV 79.8 fL (80.0-100.0); Mean Platelet Volume 8.5; Microcytosis Slight; Monocytes # (A) 0.2 k/uL (0-1.0); Monocytes % (A) 7 %; Neutrophils # (A) 1.6 k/uL (1.3-7.7); Neutrophils % (A) 57 %; Platelet Count 121 k/uL (150-450); Poikilocytosis Moderate; RBC 3.21 m/uL (3.80-5.40); RDW 17.5 % (11.5-15.5); WBC 2.8 k/uL (3.8-10.6)
[2021-11-08 12:30] LABS: Glucose,Whole Blood 130 mg/dL (75-99)
[2021-11-08 17:22] LABS: Glucose,Whole Blood 105 mg/dL (75-99)
[2021-11-08] MEDS ORDERED: LIDOCAINE 1% (10MG/ML) FOR IV START INTRADERMA PRN (19:47)
--- NOTE | 2021-11-08 20:35 | P.PN ---
Progress Note - Text Progress Note Date: 11/08/21 Chief Complaint: Low hemoglobin Hospital course: This is a pleasant 60-year-old patient of .. Chronic stable medical conditions include hypertension, hypothyroid, fatty liver, depression. History of aortic valve replacement. Shortly after she had developed atrial fibrillation for which she eliquis. Patient is due to have back surgery by Dr. Chavez from [facility] and has a preop blood work she had a hemoglobin done. Came back at 6.6. And she is being admitted. Patient for about 2 weeks at least she has been feeling weak tired is a legs feel wobbly. Increase in shortness of breath. She is also noticed that she lost about 10 pounds as her appetite is not good. Denies any black stools. She does look in the stool before she flushes the toilet. No fever no chills. November 06: Hemoglobin 5.5 this morning. Unit of blood ordered. Patient seen by hematology. Workup in place. Computed tomography scan of the abdomen ordered yesterday did not show any evidence of malignancy. Care was discussed with the patient. Tired. Endoscopy scheduled tomorrow November 07: EGD: Mild antral gastritis. Colonoscopy: 5 mm transverse colon polyp status post cold biopsy. Small bowel capsule study started. Has received 1 unit of blood. Care discussed with the patient daughter the bedside. November 08: Feeling tired just feels a bit off. No BM. Did ask the patient to get up and walk in the hallway. No dizziness nor lightheadedness. Small bowel camera study completed. Active Medications Acetaminophen (Acetaminophen Tab 325 Mg Tab) 650 mg PO Q6HR PRN PRN Reason: Mild Pain or Fever > 100.5 Hydrocodone Bitart/Acetaminophen (Hydrocodone/Apap 7.5-325mg 1 Each Tab) 1 each PO Q4H PRN PRN Reason: Pain Last Admin: 11/08/21 09:08 Dose: 1 each Documented by: Albuterol Sulfate (Albuterol Nebulized 2.5 Mg/3 Ml) 2.5 mg INHALATION RT-Q6H PRN PRN Reason: Shortness Of Breath Alprazolam (Alprazolam 0.25 Mg Tab) 0.25 mg PO Q6HR PRN PRN Reason: Anxiety Atorvastatin Calcium (Atorvastatin 40 Mg Tab) 40 mg PO HS LATRELL Last Admin: 11/07/21 19:22 Dose: 40 mg Documented by: Budesonide/Formoterol Fumarate (Symbicort 80-4.5 Mcg Inhaler) 2 puff INHALATION RT-BID [facility] Last Admin: 11/08/21 19:23 Dose: 2 puff Documented by: Calcium Carbonate/Glycine (Calcium Carbonate 500 Mg Chewable) 1,000 mg PO Q4HR PRN PRN Reason: Dyspepsia Cholecalciferol (Cholecalciferol 25 Mcg (1000 Iu) Tablet) 50 mcg PO DAILY [facility] Last Admin: 11/08/21 09:04 Dose: 50 mcg Documented by: Citalopram Hydrobromide (Citalopram Hydrobromide 20 Mg Tab) 40 mg PO DAILY [facility] Last Admin: 11/08/21 09:04 Dose: 40 mg Documented by: Famotidine (Famotidine 20 Mg Tab) 20 mg PO BID [facility] Last Admin: 11/08/21 09:04 Dose: 20 mg Documented by: Lactated Ringer's (Lactated Ringers) 1,000 mls @ 20 mls/hr IV .Q24H [facility] Insulin Aspart (Insulin Aspart (Novolog) 100 Unit/Ml Vial) 0 unit SQ AC-TID [facility]; Protocol Last Admin: 11/08/21 17:27 Dose: Not Given Documented by: Lactulose (Lactulose 20 Gm/30 Ml Cup) 20 gm PO DAILY PRN PRN Reason: Constipation Levothyroxine Sodium (Levothyroxine 125 Mcg Tab) 125 mcg PO DAILY@0630 [facility] Lidocaine HCl (Lidocaine 1% (10mg/Ml) For Iv Start) 0.1 ml INTRADERMA PER PROTOCOL PRN PRN Reason: IV Start Loratadine (Loratadine 10 Mg Tab) 10 mg PO DAILY [facility] Last Admin: 11/08/21 09:04 Dose: 10 mg Documented by: Melatonin (Melatonin 3 Mg Tablet) 3 mg PO HS PRN PRN Reason: Insomnia Metoprolol Tartrate (Metoprolol Tartrate 25 Mg Tab) 25 mg PO DAILY [facility] Last Admin: 11/08/21 09:04 Dose: 25 mg Documented by: Naloxone HCl (Naloxone 0.4 Mg/Ml 1 Ml Vial) 0.2 mg IV Q2M PRN PRN Reason: Opioid Reversal Ondansetron HCl (Ondansetron 4 Mg/2 Ml Vial) 4 mg IVP Q8HR PRN PRN Reason: Nausea And Vomiting Quetiapine Fumarate (Quetiapine 100 Mg Tab) 100 mg PO HS [facility] Last Admin: 11/07/21 20:42 Dose: 100 mg Documented by: Past medical history to include: Hypertension, hypothyroid, fatty liver, depression, aortic valve replacement, paroxysmal atrial fibrillation with eliquis, DJD spine Social history: Lives alone. Smoked half a pack and about 40 years stopped in 2017. No alcohol. Family history: Reviewed, unremarkable Physical examination: VITAL SIGNS: 97.9, 56, 20, 109/53, 93% room air GENERAL: Reclining in bed bed, comfortable. EYES: Pupils equal. Conjunctiva pale. HEENT: External appearance of nose and ears normal, oral cavity grossly normal. NECK: JVD not raised; masses not palpable. HEART: First and second heart sounds are normal; no edema. LUNGS: Respiratory rate normal; clear to auscultation. ABDOMEN: Soft, nontender, liver spleen not palpable, no masses palpable. PSYCH: Alert and oriented x3; mood and affect normal. MUSCULOSKELETAL:No Clubbing/cyanosis;muscles-grossly intact NEUROLOGICAL: Cranial nerves grossly intact; no facial asymmetry, power and sensation grossly intact. Investigations, reviewed in the clinical context: November 08: White count 2.8 hemoglobin 7.3 platelets 121 November 07: White count 2.8 hemoglobin 7.4 platelets 108 ProTime 15.1 sodium 143 potassium 3.8 creatinine 0.6 total bilirubin 1.4 LDH 292 TSH 0.2 free T4 1 0.5 November 06: White count 1.1 hemoglobin 5.5 platelets 94 potassium 4 creatinine 0.6 LDH 278 IgG 2091 IgA 318 IgG and 176 rheumatoid factor less than 10 ANUPAM screen: Negative reticulocyte count 1.67 Computed tomography scan abdomen: Findings suggestive of cirrhosis. Splenomegaly. White count 1.9 hemoglobin 6.6 platelets 108 potassium 3.9 creatinine 0.53 Stool occult blood negative Coronavirus [PCR]: Not detected Previous labs: May 2019 White count 3.4 hemoglobin 9 platelets 132 Assessment and plan: -This is a patient who is presents with symptomatic, microcytic anemia. Note that the patient has loss of appetite and weight loss. EGD and colonoscopy unremarkable. Received 1 unit of blood. -Pancytopenia. CBC was abnormal in May 2019. rule out underlying bone marrow issues. Myelodysplasia the differential. Also cirrhosis noted on computed tomography scan Follow with hematology. -Paroxysmal atrial fibrillation Hold eliquis. 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 Chino Figueroa -Hypothyroidism with some over replacement Decrease Synthroid 125 g daily -Depression otherwise specified Celexa 40 mg daily. Seroquel 100 mg daily at bedtime -Chronic lower back DJD pending surgery by from [facility] [place] 7.5 every 4 when necessary -COPD in a previous smoker Advair 250/50 one puff twice a day, pro-air when necessary Capsule study completed. Pending bowel movement. Encouraged to ambulate.. Await further input from hematology. Patient is scheduled spine surgery on Tuesday. Hopefully should be able to be discharged tomorrow with further workup as outpatient if bone marrow is not being considered.
[2021-11-08] MEDS: QUEtiapine 100 MG TAB PO SCH (20:49)
[2021-11-08] MEDS: ATORVASTATIN 40 MG TAB PO SCH (20:49)
[2021-11-08] MEDS: LACTATED RINGERS 1,000 ML IV SCH (20:50)
[2021-11-08 21:23] LABS: Glucose,Whole Blood 128 mg/dL (75-99)
[2021-11-09] MEDS: LEVOTHYROXINE 125 MCG TAB PO SCH (05:54)
[2021-11-09 07:35] LABS: Glucose,Whole Blood 108 mg/dL (75-99)
[2021-11-09] MEDS: SYMBICORT 80-4.5 MCG INHALER INHALATION SCH ×2 (07:38→20:25)
[2021-11-09] MEDS: INSULIN ASPART (NovoLOG) 100 UNIT/ML VIAL SQ SCH ×3 (08:51→18:40)
[2021-11-09] MEDS: LORATADINE 10 MG TAB PO SCH (09:47)
[2021-11-09] MEDS: CITALOPRAM HYDROBROMIDE 20 MG TAB PO SCH (09:47)
[2021-11-09] MEDS: CHOLECALCIFEROL 25 MCG (1000 IU) TABLET PO SCH (09:47)
[2021-11-09] MEDS: METOPROLOL TARTRATE 25 MG TAB PO SCH (09:47)
[2021-11-09] MEDS: FAMOTIDINE 20 MG TAB PO SCH ×2 (09:48→20:56)
[2021-11-09] MEDS: HYDROcodone/APAP 7.5-325MG 1 EACH TAB PO PRN ×2 (10:03→19:15)
[2021-11-09] MEDS: SODIUM FERRIC GLUCONAT-SUCROSE 125 MG in SODIUM CHLORIDE 0.9% 100 ML IVPB SCH (10:42)
[2021-11-09 12:01] LABS: Glucose,Whole Blood 195 mg/dL (75-99)
[2021-11-09 13:09] LABS: Basophils # (A) 0.02 X 10*3/uL (0.00-0.10); Basophils % (A) 0.9 %; Eosinophils # (A) 0.03 X 10*3/uL (0.04-0.35); Eosinophils % (A) 1.4 %; HCT 24.4 % (37.2-46.3); HGB 6.8 g/dL (12.0-15.0); Immature Grans, Automated 0.5 %; Lymphocytes # (A) 0.78 X 10*3/uL (0.90-5.00); Lymphocytes % (A) 36.4 %; MCH 21.4 pg (27.0-32.0); MCHC 27.9 g/dL (32.0-37.0); MCV 76.7 fL (80.0-97.0); Mean Platelet Volume 11.1 fL (9.5-12.2); Monocytes % (A) 9.3 %; NRBC Per 100 WBC 0 /100 WBCS (0.0-0.0); Neutrophils % (A) 51.5 %; Platelet Count 101 X 10*3/uL (140-440); RBC 3.18 X 10*6/uL (4.10-5.20); RDW 17.9 % (11.5-14.5); WBC 2.14 X 10*3/uL (4.50-10.00)
[2021-11-09 14:36] VITALS: BMI 38.2
--- NOTE | 2021-11-09 14:40 | P.PN ---
Subjective Progress Note Date: 11/09/21 Principal diagnosis: Microcytic, hypochromic anemia In follow-up today patient is denying any gross bleeding. She did have GI endoscopy with finding of a polyp but, nothing to account for patient's degree of anemia and iron deficiency. Patient denies nausea, vomiting, fever, acute changes in bowel habits. Objective - Vital Signs Vital signs: Vital Signs Temp 98.0 F 11/09/21 04:14 Pulse 80 11/09/21 10:06 Resp 18 11/09/21 04:14 BP 164/57 11/09/21 10:06 Pulse Ox 96 11/09/21 04:14 Intake & Output 11/08/21 11/09/21 11/09/21 18:59 06:59 18:59 Intake Total 1080 Balance 1080 Weight 107.5 kg Intake: Oral 1080 Other: Voiding Method Toilet Toilet # Voids 2 - Constitutional General appearance: Present: average body habitus, cooperative, no acute distress - EENT Eyes: Present: anicteric sclerae, EOMI ENT: Present: hearing grossly normal, normal oropharynx - Respiratory Respiratory: bilateral: CTA - Cardiovascular Rhythm: regular Heart sounds: normal: S1, S2 Abnormal Heart Sounds: Absent: systolic murmur, diastolic murmur, rub, S3 Gallop, S4 Gallop, click, other - Peripheral edema leg Peripheral Edema: bilateral: None - Gastrointestinal General gastrointestinal: Present: normal bowel sounds, soft - Integumentary Integumentary: Present: pale - Neurologic Neurologic: Present: CNII-XII intact - Musculoskeletal Musculoskeletal: Present: strength equal bilaterally - Psychiatric Psychiatric: Present: A&O x's 3, appropriate affect, intact judgment & insight - Labs CBC & Chem 7: 11/09/21 06:54 11/07/21 06:30 Labs: Abnormal Lab Results - Last 24 Hours (Table) 11/08/21 11/08/21 11/09/21 Range/Units 17:20 21:06 07:34 POC Glucose (mg/dL) 105 H 128 H 108 H (75-99) mg/dL 11/09/21 Range/Units 12:00 POC Glucose (mg/dL) 195 H (75-99) mg/dL Assessment and Plan (1) Microcytic hypochromic anemia Current Visit: Yes Status: Acute Priority: High Code(s): D50.9 - IRON DEFICIENCY ANEMIA, UNSPECIFIED SNOMED Code(s): 99317643 (2) Pancytopenia Current Visit: Yes Status: Acute Priority: High Code(s): D61.818 - OTHER PANCYTOPENIA SNOMED Code(s): 934103757 Plan: Pancytopenia work up for paraproteinemia is neg. Labs show iron deficiency. She is on chronic anticoagulation secondary to valve replacement and history of proximal atrial fibrillation. She has liver cirrhosis and quite possibly some varices and GI AVMs. GI work up complete, polyp removed, capsule study pending. IV iron ordered. Patient does have a history of cirrhotic liver with scarring that may be causing some splenic sequestration and cell destruction. Question small degree of hemolysis (LDH slightly elevated, haptoglobin low). Patient does have a bovine valve replacement. Discussed case with Attending. Pt is due for surgical procedure on Tue. Hopefully Hgb will be at an acceptable level for surgery. Follow up with Hematology in 4 weeks for iron recheck. Recommend CBC weekly for monitoring of Hgb until stable. Doctor attests: I performed a history and physical examination of this patient, developed impression and plan of care. Discussed with dictator. I agree with dictators note, documented as a scribe.
[2021-11-09 15:38] VITALS: RESP 18
[2021-11-09 17:28] LABS: Glucose,Whole Blood 125 mg/dL (75-99)
--- NOTE | 2021-11-09 17:32 | P.PN ---
Progress Note - Text Progress Note Date: 11/09/21 Chief Complaint: Low hemoglobin Hospital course: This is a pleasant 60-year-old patient of .. Chronic stable medical conditions include hypertension, hypothyroid, fatty liver, depression. History of aortic valve replacement. Shortly after she had developed atrial fibrillation for which she eliquis. Patient is due to have back surgery by Dr. Chavez from [facility] and has a preop blood work she had a hemoglobin done. Came back at 6.6. And she is being admitted. Patient for about 2 weeks at least she has been feeling weak tired is a legs feel wobbly. Increase in shortness of breath. She is also noticed that she lost about 10 pounds as her appetite is not good. Denies any black stools. She does look in the stool before she flushes the toilet. No fever no chills. November 06: Hemoglobin 5.5 this morning. Unit of blood ordered. Patient seen by hematology. Workup in place. Computed tomography scan of the abdomen ordered yesterday did not show any evidence of malignancy. Care was discussed with the patient. Tired. Endoscopy scheduled tomorrow November 07: EGD: Mild antral gastritis. Colonoscopy: 5 mm transverse colon polyp status post cold biopsy. Small bowel capsule study started. Has received 1 unit of blood. Care discussed with the patient daughter the bedside. November 08: Feeling tired just feels a bit off. No BM. Did ask the patient to get up and walk in the hallway. No dizziness nor lightheadedness. Small bowel camera study completed. November 09: Feeling a bit better. 1 unit of blood ordered to keep the hemoglobin at least above 8 for upcoming surgery on Tuesday. Discussed with Dr. Chavez from orthopedics. Patient getting IV iron. Increase activity. Active Medications Acetaminophen (Acetaminophen Tab 325 Mg Tab) 650 mg PO Q6HR PRN PRN Reason: Mild Pain or Fever > 100.5 Hydrocodone Bitart/Acetaminophen (Hydrocodone/Apap 7.5-325mg 1 Each Tab) 1 each PO Q4H PRN PRN Reason: Pain Last Admin: 11/09/21 10:03 Dose: 1 each Documented by: Albuterol Sulfate (Albuterol Nebulized 2.5 Mg/3 Ml) 2.5 mg INHALATION RT-Q6H PRN PRN Reason: Shortness Of Breath Alprazolam (Alprazolam 0.25 Mg Tab) 0.25 mg PO Q6HR PRN PRN Reason: Anxiety Atorvastatin Calcium (Atorvastatin 40 Mg Tab) 40 mg PO HS [facility] Last Admin: 11/08/21 20:49 Dose: 40 mg Documented by: Budesonide/Formoterol Fumarate (Symbicort 80-4.5 Mcg Inhaler) 2 puff INHALATION RT-BID [facility] Last Admin: 11/09/21 07:38 Dose: 2 puff Documented by: Calcium Carbonate/Glycine (Calcium Carbonate 500 Mg Chewable) 1,000 mg PO Q4HR PRN PRN Reason: Dyspepsia Cholecalciferol (Cholecalciferol 25 Mcg (1000 Iu) Tablet) 50 mcg PO DAILY [facility] Last Admin: 11/09/21 09:47 Dose: 50 mcg Documented by: Citalopram Hydrobromide (Citalopram Hydrobromide 20 Mg Tab) 40 mg PO DAILY [facility] Last Admin: 11/09/21 09:47 Dose: 40 mg Documented by: Famotidine (Famotidine 20 Mg Tab) 20 mg PO BID [facility] Last Admin: 11/09/21 09:48 Dose: 20 mg Documented by: Lactated Ringer's (Lactated Ringers) 1,000 mls @ 20 mls/hr IV .Q24H [facility] Last Admin: 11/08/21 20:50 Dose: Not Given Documented by: Ferric Sodium Gluconate 125 mg (/ Sodium Chloride) 110 mls @ 100 mls/hr IVPB DAILY [facility] Stop: 11/11/21 10:05 Last Admin: 11/09/21 10:42 Dose: 100 mls/hr Documented by: Insulin Aspart (Insulin Aspart (Novolog) 100 Unit/Ml Vial) 0 unit SQ AC-TID [facility]; Protocol Last Admin: 11/09/21 13:34 Dose: 3 unit Documented by: Lactulose (Lactulose 20 Gm/30 Ml Cup) 20 gm PO DAILY PRN PRN Reason: Constipation Levothyroxine Sodium (Levothyroxine 125 Mcg Tab) 125 mcg PO DAILY@0630 [facility] Last Admin: 11/09/21 05:54 Dose: 125 mcg Documented by: Lidocaine HCl (Lidocaine 1% (10mg/Ml) For Iv Start) 0.1 ml INTRADERMA PER PROTOCOL PRN PRN Reason: IV Start Loratadine (Loratadine 10 Mg Tab) 10 mg PO DAILY [facility] Last Admin: 11/09/21 09:47 Dose: 10 mg Documented by: Melatonin (Melatonin 3 Mg Tablet) 3 mg PO HS PRN PRN Reason: Insomnia Metoprolol Tartrate (Metoprolol Tartrate 25 Mg Tab) 25 mg PO DAILY [facility] Last Admin: 11/09/21 09:47 Dose: 25 mg Documented by: Naloxone HCl (Naloxone 0.4 Mg/Ml 1 Ml Vial) 0.2 mg IV Q2M PRN PRN Reason: Opioid Reversal Ondansetron HCl (Ondansetron 4 Mg/2 Ml Vial) 4 mg IVP Q8HR PRN PRN Reason: Nausea And Vomiting Quetiapine Fumarate (Quetiapine 100 Mg Tab) 100 mg PO HS [facility] Last Admin: 11/08/21 20:49 Dose: 100 mg Documented by: Past medical history to include: Hypertension, hypothyroid, fatty liver, depression, aortic valve replacement, paroxysmal atrial fibrillation with eliquis, DJD spine Social history: Lives alone. Smoked half a pack and about 40 years stopped in 2016. No alcohol. Family history: Reviewed, unremarkable Physical examination: VITAL SIGNS: 98, 60, 18, 138/58, 97% room air GENERAL: Sitting up, comfortable. EYES: Pupils equal. Conjunctiva pale. HEENT: External appearance of nose and ears normal, oral cavity grossly normal. NECK: JVD not raised; masses not palpable. HEART: First and second heart sounds are normal; no edema. LUNGS: Respiratory rate normal; clear to auscultation. ABDOMEN: Soft, nontender, liver spleen not palpable, no masses palpable. PSYCH: Alert and oriented x3; mood and affect normal. MUSCULOSKELETAL:No Clubbing/cyanosis;muscles-grossly intact NEUROLOGICAL: Cranial nerves grossly intact; no facial asymmetry, power and sensation grossly intact. Investigations, reviewed in the clinical context: November 09: Hemoglobin 6.8 platelets 101 white count 2.1 November 08: White count 2.8 hemoglobin 7.3 platelets 121 November 07: White count 2.8 hemoglobin 7.4 platelets 108 ProTime 15.1 sodium 143 potassium 3.8 creatinine 0.6 total bilirubin 1.4 LDH 292 TSH 0.2 free T4 1 0.5 November 06: White count 1.1 hemoglobin 5.5 platelets 94 potassium 4 creatinine 0.6 LDH 278 IgG 2091 IgA 318 IgG and 176 rheumatoid factor less than 10 ANUPAM screen: Negative reticulocyte count 1.67 Computed tomography scan abdomen: Findings suggestive of cirrhosis. Splenomegaly. White count 1.9 hemoglobin 6.6 platelets 108 potassium 3.9 creatinine 0.53 Stool occult blood negative Coronavirus [PCR]: Not detected Previous labs: May 2019 White count 3.4 hemoglobin 9 platelets 132 Assessment and plan: -This is a patient who is presents with symptomatic, microcytic anemia. Note that the patient has loss of appetite and weight loss. EGD and colonoscopy unremarkable. Received 1 unit of blood. Small bowel capsule study still pending. -Pancytopenia. CBC was abnormal in May 2019. rule out underlying bone marrow issues. Myelodysplasia the differential. Cirrhosis. Possible sequestration in the spleen. Follow with hematology. -Paroxysmal atrial fibrillation Hold eliquis. 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 Chino Figueroa -Hypothyroidism with some over replacement Decrease Synthroid 125 g daily -Depression otherwise specified Celexa 40 mg daily. Seroquel 100 mg daily at bedtime -Chronic lower back DJD pending surgery by from [facility] [place] 7.5 every 4 when necessary -COPD in a previous smoker Advair 250/50 one puff twice a day, pro-air when necessary Patient will receive 1 unit of blood today. Getting IV iron. Results of capsule study pending. Patient be discharged tomorrow and return for back surgery by Dr. Ag on Tuesday. Discussed with Dr. Chavez. Also discussed with hematology. Total time spent today over 45 minutes with over 30 points of discussion.
[2021-11-09] MEDS: LACTATED RINGERS 1,000 ML IV SCH (19:15)
[2021-11-09 20:12] LABS: Glucose,Whole Blood 161 mg/dL (75-99)
[2021-11-09] MEDS: ATORVASTATIN 40 MG TAB PO SCH (20:56)
[2021-11-09] MEDS: QUEtiapine 100 MG TAB PO SCH (20:56)
[2021-11-10] MEDS: LEVOTHYROXINE 125 MCG TAB PO SCH (06:19)
[2021-11-10] MEDS: HYDROcodone/APAP 7.5-325MG 1 EACH TAB PO PRN (06:29)
[2021-11-10 07:15] LABS: Glucose,Whole Blood 109 mg/dL (75-99)
[2021-11-10] MEDS: SYMBICORT 80-4.5 MCG INHALER INHALATION SCH (07:30)
[2021-11-10] MEDS: INSULIN ASPART (NovoLOG) 100 UNIT/ML VIAL SQ SCH ×2 (09:46→12:14)
[2021-11-10] MEDS: SODIUM FERRIC GLUCONAT-SUCROSE 125 MG in SODIUM CHLORIDE 0.9% 100 ML IVPB SCH (09:47)
[2021-11-10] MEDS: CHOLECALCIFEROL 25 MCG (1000 IU) TABLET PO SCH (10:15)
[2021-11-10] MEDS: LORATADINE 10 MG TAB PO SCH (10:15)
[2021-11-10] MEDS: METOPROLOL TARTRATE 25 MG TAB PO SCH (10:16)
[2021-11-10] MEDS: CITALOPRAM HYDROBROMIDE 20 MG TAB PO SCH (10:17)
[2021-11-10] MEDS: FAMOTIDINE 20 MG TAB PO SCH (10:17)
[2021-11-10 10:45] LABS: Protein, Total 6.5 g/dL (6.2-8.2)
[2021-11-10 11:06] LABS: Anisocytosis Slight; HCT 29.5 % (34.0-46.0); HGB 8.7 gm/dL (11.4-16.0); Hypochromasia Marked; MCH 23.7 pg (25.0-35.0); MCHC 29.5 g/dL (31.0-37.0); MCV 80.3 fL (80.0-100.0); Mean Platelet Volume 7.2; Microcytosis Slight; Poikilocytosis Moderate; RBC 3.67 m/uL (3.80-5.40); RDW 17.9 % (11.5-15.5); WBC 2.6 k/uL (3.8-10.6)
[2021-11-10 11:37] LABS: Glucose,Whole Blood 117 mg/dL (75-99)
[2021-11-10 11:42] LABS: Platelet Count 99 k/uL (150-450)
[2021-11-10 12:37] VITALS: BP 178/75; PULSE 63; TEMP 97.7
[2021-11-10 13:43] LABS: Albumin 3.03 g/dL (3.80-4.90); Gamma Globulin 2.24 g/dL (0.70-1.50)
[2021-11-10 16:36] LABS: Free Kappa Lt Chain Qnt, Serum 3.77 mg/dL (0.33-1.94)
--- NOTE | 2021-11-10 21:40 | P.DS ---
Providers Date of admission: 11/05/21 13:50 Expected date of discharge: 11/10/21 Attending physician: Rajesh Figueroa Consults: 11/05/21 13:50 Consult Physician Urgent Consulting Provider: Juan Alegria Consult Reason/Comments: Anemia Do you want consulting provider notified?: Yes Consult Physician Urgent Consulting Provider: Bibiana Figueroa Consult Reason/Comments: Anemia Do you want consulting provider notified?: Yes Primary care physician: Odilon Hall [facility] Course: Chief Complaint: Low hemoglobin Hospital course: This is a pleasant 60-year-old patient of .. Chronic stable medical conditions include hypertension, hypothyroid, fatty liver, depression. History of aortic valve replacement. Shortly after she had developed atrial fibril lation for which she eliquis. Patient is due to have back surgery by Dr. Chavez from [facility] and has a preop blood work she had a hemoglobin done. Came back at 6.6. And she is being admitted. Patient for about 2 weeks at least she has been feeling weak tired is a legs feel wobbly. Increase in shortness of breath. She is also noticed that she lost about 10 pounds as her appetite is not good. Denies any black stools. She does look in the stool before she flushes the toilet. No fever no chills. November 06: Hemoglobin 5.5 this morning. Unit of blood ordered. Patient seen by hematology. Workup in place. Computed tomography scan of the abdomen ordered yesterday did not show any evidence of malignancy. Care was discussed with the patient. Tired. Endoscopy scheduled tomorrow November 07: EGD: Mild antral gastritis. Colonoscopy: 5 mm transverse colon polyp status post cold biopsy. Small bowel capsule study started. Has received 1 unit of blood. Care discussed with the patient daughter the bedside. November 08: Feeling tired just feels a bit off. No BM. Did ask the patient to get up and walk in the hallway. No dizziness nor lightheadedness. Small bowel camera study completed. November 09: Feeling a bit better. 1 unit of blood ordered to keep the hemoglobin at least above 8 for upcoming surgery on Tuesday. Discussed with Dr. Chavez from [facility]. Patient getting IV iron. Increase activity. November 10: Received a unit of blood. Hemoglobin today 8.7. Discussed with Dr. Chavez from orthopedics. Patient stable for surgery for tomorrow. It is felt most likely from sequestration of spleen Patient will follow-up with hematology. Discussed with patient. Feeling better. Up and about. Patient's surgery is a very low blood loss surgery. Discussion and discharge planning more than 35 minutes Past medical history to include: Hypertension, hypothyroid, fatty liver, depression, aortic valve replacement, paroxysmal atrial fibrillation with eliquis, DJD spine Social history: Lives alone. Smoked half a pack and about 40 years stopped in 2017. No alcohol. Family history: Reviewed, unremarkable Physical examination: VITAL SIGNS: 97.7, 63, 18, 1 53 x 61, 96% room air GENERAL: Sitting up, comfortable. EYES: Pupils equal. Conjunctiva pale. HEENT: External appearance of nose and ears normal, oral cavity grossly normal. NECK: JVD not raised; masses not palpable. HEART: First and second heart sounds are normal; no edema. LUNGS: Respiratory rate normal; clear to auscultation. ABDOMEN: Soft, nontender, liver spleen not palpable, no masses palpable. PSYCH: Alert and oriented x3; mood and affect normal. MUSCULOSKELETAL:No Clubbing/cyanosis;muscles-grossly intact NEUROLOGICAL: Cranial nerves grossly intact; no facial asymmetry, power and sensation grossly intact. Investigations, reviewed in the clinical context: November 10: Hemoglobin 8.7 November 09: Hemoglobin 6.8 platelets 101 white count 2.1 November 08: White count 2.8 hemoglobin 7.3 platelets 121 November 07: White count 2.8 hemoglobin 7.4 platelets 108 ProTime 15.1 sodium 143 potassium 3.8 creatinine 0.6 total bilirubin 1.4 LDH 292 TSH 0.2 free T4 1 0.5 November 06: White count 1.1 hemoglobin 5.5 platelets 94 potassium 4 creatinine 0.6 LDH 278 IgG 2091 IgA 318 IgG and 176 rheumatoid factor less than 10 ANUPAM screen: Negative reticulocyte count 1.67 Computed tomography scan abdomen: Findings suggestive of cirrhosis. Splenomegaly. White count 1.9 hemoglobin 6.6 platelets 108 potassium 3.9 creatinine 0.53 Stool occult blood negative Coronavirus [PCR]: Not detected Previous labs: May 2019 White count 3.4 hemoglobin 9 platelets 132 Assessment and plan: -This is a patient who is presents with symptomatic, microcytic anemia. Note that the patient has loss of appetite and weight loss. EGD and colonoscopy unremarkable. Received 2 unit of blood. Small bowel capsule study results pending. -Pancytopenia. CBC was abnormal in May 2019. Differential:. Myelodysplasia / Cirrhosis./ Possible sequestration in the spleen. Follow with hematology. Dr. Alegria -Paroxysmal atrial fibrillation Hold eliquis. 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 Chino Figueroa -Hypothyroidism with some over replacement Decrease Synthroid 125 g daily -Depression otherwise specified Celexa 40 mg daily. Seroquel 100 mg daily at bedtime -Chronic lower back DJD pending surgery by from [facility] [place] 7.5 every 4 when necessary -COPD in a previous smoker Advair 250/50 one puff twice a day, pro-air when necessary Disposition: Home Plan - Discharge Summary Discharge Rx Participant: No New Discharge Prescriptions: Continue Cholecalciferol (Vitamin D3) [Vitamin D3] 2,000 unit PO DAILY Citalopram Hydrobromide [CeleXA] 40 mg PO DAILY Atorvastatin [Lipitor] 40 mg PO HS #30 tab Levothyroxine Sodium [Synthroid] 137 mcg PO DAILY QUEtiapine FUMARATE 100 mg PO HS metFORMIN HCL [Glucophage] 500 mg PO BID Cetirizine HCl [Zyrtec] 10 mg PO DAILY Fluticasone Nasal [place] [Flonase Nasal [place]] 2 spray EA NOSTRIL DAILY PRN PRN Reason: allergies Albuterol Sulfate [Proair Hfa] 2 puff INHALATION RT-Q6H PRN PRN Reason: Shortness Of Breath HYDROcodone/APAP 7.5-325MG [[place] 7.5-325] 1 tab PO Q4H PRN PRN Reason: Pain Famotidine [Pepcid] 20 mg PO BID Fluticasone/Salmeterol [Advair 250-50 Diskus] 1 puff INHALATION RT-BID Metoprolol Tartrate [Lopressor] 25 mg PO DAILY No Action Apixaban [Eliquis] 5 mg PO BID #60 tab Discharge Medication List Cholecalciferol (Vitamin D3) [Vitamin D3] 2,000 unit PO DAILY 03/27/19 [History] Citalopram Hydrobromide [CeleXA] 40 mg PO DAILY 03/27/19 [History] Atorvastatin [Lipitor] 40 mg PO HS #30 tab 05/05/19 [Rx] Apixaban [Eliquis] 5 mg PO BID #60 tab 05/09/19 [Rx] Levothyroxine Sodium [Synthroid] 137 mcg PO DAILY 05/21/19 [History] Cetirizine HCl [Zyrtec] 10 mg PO DAILY 09/30/21 [History] Famotidine [Pepcid] 20 mg PO BID 09/30/21 [History] Fluticasone Nasal [place] [Flonase Nasal [place]] 2 spray EA NOSTRIL DAILY PRN 09/30/21 [History] HYDROcodone/APAP 7.5-325MG [[place] 7.5-325] 1 tab PO Q4H PRN 09/30/21 [History] QUEtiapine FUMARATE 100 mg PO HS 09/30/21 [History] metFORMIN HCL [Glucophage] 500 mg PO BID 09/30/21 [History] Albuterol Sulfate [Proair Hfa] 2 puff INHALATION RT-Q6H PRN 11/05/21 [History] Fluticasone/Salmeterol [Advair 250-50 Diskus] 1 puff INHALATION RT-BID 11/05/21 [History] Metoprolol Tartrate [Lopressor] 25 mg PO DAILY 11/05/21 [History] Follow up Appointment(s)/Referral(s): Juan Alegria MD [STAFF PHYSICIAN] - 4 Weeks Odilon Hall MD [Primary Care Provider] - 1-2 days Bibiana Figueroa MD [STAFF PHYSICIAN] - 1 Week Activity/Diet/Wound Care/Special Instructions: Pt wants a pneumonia and influenza vaccine prior to discharge. Discharge Disposition: HOME SELF-CARE
== END 2021-11-10 13:10 | disposition home or self-care (01) | DRG 809 ==
LOC: EC 11:57 → 5NMEDONC 13:50
PROVIDERS: ADMIT Hospitalist; ATTEND Hospitalist
DX: D61.818 Other pancytopenia (principal); K76.6 Portal hypertension; Z86.16 Personal history of COVID-19; Z20.822 Contact with and (suspected) exposure to COVID-19; E66.9 Obesity, unspecified; F41.9 Anxiety disorder, unspecified; F32.A Depression, unspecified; E89.0 Postprocedural hypothyroidism; E78.5 Hyperlipidemia, unspecified; E11.9 Type 2 diabetes mellitus without complications; G47.00 Insomnia, unspecified; K75.81 Nonalcoholic steatohepatitis (NASH); K74.60 Unspecified cirrhosis of liver; I11.0 Hypertensive heart disease with heart failure; I48.0 Paroxysmal atrial fibrillation; I50.9 Heart failure, unspecified; Z68.38 Body mass index [BMI] 38.0-38.9, adult; J44.9 Chronic obstructive pulmonary disease, unspecified; K29.70 Gastritis, unspecified, without bleeding; D73.2 Chronic congestive splenomegaly; K31.89 Other diseases of stomach and duodenum; R63.4 Abnormal weight loss; K59.00 Constipation, unspecified; K63.5 Polyp of colon; M47.9 Spondylosis, unspecified; G47.33 Obstructive sleep apnea (adult) (pediatric); G89.29 Other chronic pain; M15.9 Polyosteoarthritis, unspecified; Z87.01 Personal history of pneumonia (recurrent); Z98.890 Other specified postprocedural states; Z90.89 Acquired absence of other organs; Z98.51 Tubal ligation status; Z90.49 Acquired absence of other specified parts of digestive tract; Z79.01 Long term (current) use of anticoagulants; Z79.51 Long term (current) use of inhaled steroids; Z79.84 Long term (current) use of oral hypoglycemic drugs; Z79.890 Hormone replacement therapy; Z79.899 Other long term (current) drug therapy; Z80.0 Family history of malignant neoplasm of digestive organs; Z82.3 Family history of stroke; Z82.49 Family history of ischemic heart disease and other diseases of the circulatory system; Z82.5 Family history of asthma and other chronic lower respiratory diseases; Z87.891 Personal history of nicotine dependence; Z95.3 Presence of xenogenic heart valve; Z91.041 Radiographic dye allergy status; Z91.040 Latex allergy status
CPT/HCPCS: 36415; 43239; 45380; 71260; 74177; 80048; 80053; 80076; 82272; 82607; 82728; 82746; 82784; 83010; 83540; 83550; 83615; 83735; 83883; 83921; 84100; 84165; 84439; 84443; 84484; 85025; 85027; 85045; 85610; 85730; 86038; 86334; 86431; 86850; 86900; 86901; 86920; 87635; 88305; 91110; 94640; 96374; 99285

== ENCOUNTER → 2021-12-15 | Outpatient (CLI) | payer OTHER ==
[2021-12-16 05:29] LABS: Gliadin AB IgA, Deaminated NEGATIVE (NEGATIVE); Gliadin AB IgA, Unit 1.3 U/mL; Gliadin AB IgG, Deaminated NEGATIVE (NEGATIVE); Gliadin AB IgG, Unit <0.4 U/mL; Tis Transglutaminase IgA Unit <0.5 AI; Tis Transglutaminase IgG Unit <0.8 U/mL; Tissue Transglutaminase IgA NEGATIVE (NEGATIVE); Tissue Transglutaminase IgG NEGATIVE (NEGATIVE)
== END | disposition home or self-care (01) ==
LOC: LABWHC1 13:17
PROVIDERS: ATTEND Nurse Practitioner Family
DX: R76.8 Other specified abnormal immunological findings in serum (principal)
CPT/HCPCS: 36415; 83516

== ENCOUNTER 2022-03-18 12:29 | Inpatient (IN) | payer OTHER ==
--- NOTE | 2022-03-18 13:19 | ED ---
General Adult HPI - General Chief complaint: Recheck/Abnormal Lab/Rx Stated complaint: low hemoglobin Time Seen by Provider: 03/18/22 12:35 Source: patient, RN notes reviewed, old records reviewed Mode of arrival: wheelchair Limitations: no limitations - History of Present Illness Initial comments: This is a 61-year-old female presents emergency department from Dr. Alegria's office. Patient has been anemic for a while and is on a blood thinner but today in the office her hemoglobin was considerably lower in the fives. Patient states he has been feeling weak for quite a while probably over a month. Patient states she is somewhat short of breath with any exertion whatsoever. Patient denies any chest pain or palpitations. Patient denies abdominal pain patient denies nausea vomiting diarrhea. Patient states she does have black stools. Patient denies any headache. Patient denies lightheadedness or dizziness. - Related Data Home Medications Medication Instructions Recorded Confirmed Levothyroxine Sodium [Synthroid] 137 mcg PO AC-BRKFST 05/21/19 03/18/22 Cetirizine HCl [Zyrtec] 10 mg PO HS 09/30/21 03/18/22 metFORMIN HCL [Glucophage] 500 mg PO BID 09/30/21 03/18/22 Albuterol Sulfate [Proair Hfa] 2 puff INHALATION RT-Q6H PRN 11/05/21 03/18/22 Metoprolol Tartrate [Lopressor] 25 mg PO DAILY 11/05/21 03/18/22 Budesonide/Formoterol Fumarate 2 puff INHALATION RT-TID 11/11/21 03/18/22 [Symbicort 80-4.5 Mcg Inhaler] HYDROcodone/APAP 5-325MG [[place] 1 tab PO Q6H PRN 03/18/22 03/18/22 5-325] Ondansetron [Zofran] 4 mg PO Q8H PRN 03/18/22 03/18/22 Citalopram Hydrobromide [CeleXA] 40 mg PO DAILY 03/21/22 03/21/22 Cyclobenzaprine [Flexeril] 10 mg PO HS 03/21/22 03/21/22 QUEtiapine [SEROquel] 100 mg PO HS 03/21/22 03/21/22 Previous Rx's Medication Instructions Recorded Atorvastatin [Lipitor] 40 mg PO HS #30 tab 05/05/19 Allergies Allergy/AdvReac Type Severity Reaction Status Date / Time Iodinated Contrast Media Allergy Severe Vomiting/ra Verified 03/18/22 14:50 [Iodinated Contrast- Oral sh/itching and IV Dye] latex Allergy Itching/queta Verified 03/18/22 14:50 h adhesive tape Allergy Itching/queta Uncoded 03/18/22 14:50 h Review of Systems ROS Statement: Those systems with pertinent positive or pertinent negative responses have been documented in the HPI. ROS Other: All systems not noted in ROS Statement are negative. Past Medical History Past Medical History: Atrial Fibrillation, Heart Failure, Diabetes Mellitus, GERD/Reflux, Hyperlipidemia, Hypertension, Liver Disease, Osteoarthritis (OA), Sleep Apnea/CPAP/BIPAP, Thyroid Disorder Additional Past Medical History / Comment(s): Covid pneumonia 09/2021, NIDDM type II, post aortic valve replacement Afib/converted, enlarged fatty liver, DEISI with Cpap, chronic low back pain with spinal stenosis/DDD, CHF with bilateral pleural effusions/bilateral thoracentesis when pt had valve surgery, hypothyroid, arthritis in multiple joints History of Any Multi-Drug Resistant Organisms: None Reported Past Surgical History: Appendectomy, Cardiac Valve Replacement, Cholecystectomy, Heart Catheterization, Orthopedic Surgery, Tonsillectomy, Tubal Ligation Additional Past Surgical History / Comment(s): TREY, 2019 bioprosthetic aortic valve surgery/clip L atrial appendage/post op bilateral thoracentesis, thyroid removed d/t hyperactivity, r foot bunionectomy. Past Anesthesia/Blood Transfusion Reactions: Postoperative Nausea & Vomiting (PONV) Additional Past Anesthesia/Blood Transfusion Reaction / Comment(s): no hx blood transfusion Past Psychological History: Depression Smoking Status: Former smoker - Past Family History Mother Family Medical History: CVA/TIA Additional Family Medical History / Comment(s): Mother of a blood clot in her brainstem. Father Family Medical History: Cancer, Congestive Heart Failure (CHF), COPD Additional Family Medical History / Comment(s): colon cancer General Exam - General Exam Comments Initial Comments: GENERAL: Patient is well-developed and well-nourished. Patient is nontoxic and well- hydrated and is in mild distress. ENT: Neck is soft and supple. No significant lymphadenopathy is noted. Oropharynx is clear. Moist mucous membranes. Neck has full range of motion without eliciting any pain. EYES: The sclera were anicteric and conjunctiva is pale. Extraocular movements were intact and pupils were equal round and reactive to light. Eyelids were unrem arkable. PULMONARY: Unlabored respirations. Good breath sounds bilaterally. No audible rales rhon chi or wheezing was noted. CARDIOVASCULAR: There is a regular rate and rhythm without any murmurs gallops or rubs. Femoral pulses are equal bilaterally ABDOMEN: Soft and nontender with normal bowel sounds. No palpable organomegaly was noted. There is no palpable pulsatile mass. SKIN: Patient's skin is very pale NEUROLOGIC: Patient is alert and oriented x3. Cranial nerves II through XII are grossly intact. Motor and sensory are also intact. Normal speech, volume and content. Symmetrical smile. MUSCULOSKELETAL: Normal extremities with adequate strength and full range of motion. LYMPHATICS: No significant lymphadenopathy is noted PSYCHIATRIC: Normal psychiatric evaluation. Limitations: no limitations Course Vital Signs 03/18/22 03/18/22 03/18/22 12:32 13:50 14:20 Temperature 98.1 F Pulse Rate 71 72 74 Pulse Rate [ Pulse Oximetery ] Respiratory 18 17 18 Rate Blood Pressure 127/48 99/73 Blood Pressure [Left Arm] O2 Sat by Pulse 98 98 Oximetry 03/18/22 03/18/22 03/18/22 14:30 14:40 14:42 Temperature Pulse Rate 74 73 74 Pulse Rate [ Pulse Oximetery ] Respiratory 17 10 L Rate Blood Pressure Blood Pressure [Left Arm] O2 Sat by Pulse 100 100 Oximetry 03/18/22 03/18/22 03/18/22 14:50 15:00 15:10 Temperature Pulse Rate 74 77 74 Pulse Rate [ Pulse Oximetery ] Respiratory 15 14 14 Rate Blood Pressure Blood Pressure [Left Arm] O2 Sat by Pulse 100 100 100 Oximetry 03/18/22 03/18/22 03/18/22 15:20 15:30 15:40 Temperature Pulse Rate 74 77 77 Pulse Rate [ Pulse Oximetery ] Respiratory 12 7 L 19 Rate Blood Pressure Blood Pressure [Left Arm] O2 Sat by Pulse 98 100 100 Oximetry 03/18/22 03/18/22 03/18/22 15:50 16:00 16:10 Temperature Pulse Rate 75 74 74 Pulse Rate [ Pulse Oximetery ] Respiratory 11 L 27 H 13 Rate Blood Pressure Blood Pressure [Left Arm] O2 Sat by Pulse 100 100 Oximetry 03/18/22 03/18/22 03/18/22 16:19 16:20 16:25 Temperature 98.2 F 98.2 F 97.6 F Pulse Rate 75 84 76 Pulse Rate [ Pulse Oximetery ] Respiratory 18 14 20 Rate Blood Pressure 128/54 128/54 144/61 Blood Pressure [Left Arm] O2 Sat by Pulse 97 99 98 Oximetry 03/18/22 03/18/22 03/18/22 16:30 16:35 16:40 Temperature 97.7 F 97.8 F Pulse Rate 76 75 74 Pulse Rate [ Pulse Oximetery ] Respiratory 16 18 31 H Rate Blood Pressure 144/61 147/62 147/62 Blood Pressure [Left Arm] O2 Sat by Pulse 98 97 99 Oximetry 03/18/22 03/18/22 03/18/22 16:50 17:00 17:05 Temperature 98.1 F 97.9 F Pulse Rate 75 72 71 Pulse Rate [ Pulse Oximetery ] Respiratory 16 15 16 Rate Blood Pressure 152/63 152/55 151/62 Blood Pressure [Left Arm] O2 Sat by Pulse 98 99 99 Oximetry 03/18/22 03/18/22 03/18/22 17:10 17:20 17:35 Temperature 97.8 F Pulse Rate 71 71 72 Pulse Rate [ Pulse Oximetery ] Respiratory 16 15 22 Rate Blood Pressure 128/62 142/59 129/66 Blood Pressure [Left Arm] O2 Sat by Pulse 99 98 98 Oximetry 03/18/22 03/18/22 03/18/22 18:00 18:30 19:00 Temperature 98.1 F 98.5 F 98.5 F Pulse Rate 72 80 81 Pulse Rate [ Pulse Oximetery ] Respiratory 20 18 18 Rate Blood Pressure 129/66 122/66 134/60 Blood Pressure [Left Arm] O2 Sat by Pulse 99 100 100 Oximetry 03/18/22 03/18/22 03/18/22 19:20 20:31 22:41 Temperature Pulse Rate 75 71 81 Pulse Rate [ Pulse Oximetery ] Respiratory 18 18 18 Rate Blood Pressure 128/66 125/54 135/75 Blood Pressure [Left Arm] O2 Sat by Pulse 98 98 98 Oximetry 03/19/22 03/19/22 03/19/22 02:38 02:39 02:48 Temperature 98.2 F 98.2 F 98.2 F Pulse Rate 79 76 Pulse Rate [ 55 L Pulse Oximetery ] Respiratory 18 18 18 Rate Blood Pressure 132/51 126/51 Blood Pressure 120/67 [Left Arm] O2 Sat by Pulse 98 93 L 98 Oximetry 03/19/22 03/19/22 03/19/22 03:18 05:20 07:36 Temperature 98 F 98 F Pulse Rate 74 70 74 Pulse Rate [ Pulse Oximetery ] Respiratory 18 18 Rate Blood Pressure 138/62 134/61 Blood Pressure [Left Arm] O2 Sat by Pulse 97 97 Oximetry 03/19/22 03/19/22 03/19/22 07:40 07:46 09:00 Temperature 97.5 F L Pulse Rate 75 80 Pulse Rate [ Pulse Oximetery ] Respiratory 17 Rate Blood Pressure 138/62 Blood Pressure [Left Arm] O2 Sat by Pulse 98 97 Oximetry 03/19/22 11:00 Temperature Pulse Rate 72 Pulse Rate [ Pulse Oximetery ] Respiratory 18 Rate Blood Pressure 137/64 Blood Pressure [Left Arm] O2 Sat by Pulse 96 Oximetry Medical Decision Making - Medical Decision Making Patient received 1 unit of packed red blood cells. I spoke with the [facility] agreed to admit the patient admitted the patient I consult to Dr. Valencia and Dr. Alegria - Lab Data Result diagrams: 03/21/22 12:11 03/19/22 08:37 Lab Results 03/18/22 03/18/22 03/18/22 Range/Units 12:36 13:15 13:15 WBC 2.4 L (3.8-10.6) k/uL RBC 2.18 L (3.80-5.40) m/uL Hgb 5.5 L* (11.4-16.0) gm/dL Hct 18.3 L* (34.0-46.0) % MCV 83.7 (80.0-100.0) fL MCH 25.0 (25.0-35.0) pg MCHC 29.8 L (31.0-37.0) g/dL RDW 19.2 H (11.5-15.5) % Plt Count 83 L (150-450) k/uL MPV 11.7 Neutrophils % 58 % Lymphocytes % 29 % Monocytes % 6 % Eosinophils % 2 % Basophils % 1 % Neutrophils # 1.4 (1.3-7.7) k/uL Lymphocytes # 0.7 L (1.0-4.8) k/uL Monocytes # 0.1 (0-1.0) k/uL Eosinophils # 0.1 (0-0.7) k/uL Basophils # 0.0 (0-0.2) k/uL Manual Slide Review Performed Hypochromasia Marked Poikilocytosis Moderate Anisocytosis Slight Microcytosis Slight PT 13.7 H (9.0-12.0) sec INR 1.3 H (<1.2) APTT 27.4 (22.0-30.0) sec Sodium (137-145) mmol/L Potassium (3.5-5.1) mmol/L Chloride (98-107) mmol/L Carbon Dioxide (22-30) mmol/L Anion Gap mmol/L BUN (7-17) mg/dL Creatinine (0.52-1.04) mg/dL Est GFR (CKD-EPI)AfAm (>60 ml/min/1.73 sqM) Est GFR (CKD-EPI)NonAf (>60 ml/min/1.73 sqM) Glucose (74-99) mg/dL Calcium (8.4-10.2) mg/dL Magnesium (1.6-2.3) mg/dL Total Bilirubin (0.2-1.3) mg/dL AST (14-36) U/L ALT (4-34) U/L Alkaline Phosphatase (38-126) U/L Troponin I (0.000-0.034) ng/mL Total Protein (6.3-8.2) g/dL Albumin (3.5-5.0) g/dL Blood Type B Positive Blood Type Recheck B Pos Bld Type Recheck Status No Antibody Screen NEGATIVE Crossmatch See Detail Spec Expiration Date 03/21/2022 - 232903/18/22 03/18/22 Range/Units 13:15 13:15 WBC (3.8-10.6) k/uL RBC (3.80-5.40) m/uL Hgb (11.4-16.0) gm/dL Hct (34.0-46.0) % MCV (80.0-100.0) fL MCH (25.0-35.0) pg MCHC (31.0-37.0) g/dL RDW (11.5-15.5) % Plt Count (150-450) k/uL MPV Neutrophils % % Lymphocytes % % Monocytes % % Eosinophils % % Basophils % % Neutrophils # (1.3-7.7) k/uL Lymphocytes # (1.0-4.8) k/uL Monocytes # (0-1.0) k/uL Eosinophils # (0-0.7) k/uL Basophils # (0-0.2) k/uL Manual Slide Review Hypochromasia Poikilocytosis Anisocytosis Microcytosis PT (9.0-12.0) sec INR (<1.2) APTT (22.0-30.0) sec Sodium 139 (137-145) mmol/L Potassium 4.0 (3.5-5.1) mmol/L Chloride 110 H (98-107) mmol/L Carbon Dioxide 24 (22-30) mmol/L Anion Gap 5 mmol/L BUN 12 (7-17) mg/dL Creatinine 0.54 (0.52-1.04) mg/dL Est GFR (CKD-EPI)AfAm >90 (>60 ml/min/1.73 sqM) Est GFR (CKD-EPI)NonAf >90 (>60 ml/min/1.73 sqM) Glucose 122 H (74-99) mg/dL Calcium 8.2 L (8.4-10.2) mg/dL Magnesium 1.7 (1.6-2.3) mg/dL Total Bilirubin 1.2 (0.2-1.3) mg/dL AST 35 (14-36) U/L ALT 19 (4-34) U/L Alkaline Phosphatase 102 (38-126) U/L Troponin I <0.012 (0.000-0.034) ng/mL Total Protein 6.5 (6.3-8.2) g/dL Albumin 2.9 L (3.5-5.0) g/dL Blood Type Blood Type Recheck Bld Type Recheck Status Antibody Screen Crossmatch Spec Expiration Date Critical Care Time Critical Care Time: Yes Total Critical Care Time: 35 Disposition Clinical Impression: Anemia Disposition: ADMITTED IP TO THIS HOSP
[2022-03-18 13:30] LABS: Anisocytosis Slight; Basophils % (A) 1 %; Eosinophils # (A) 0.1 k/uL (0-0.7); Eosinophils % (A) 2 %; Hypochromasia Marked; Lymphocytes # (A) 0.7 k/uL (1.0-4.8); Lymphocytes % (A) 29 %; MCHC 29.8 g/dL (31.0-37.0); MCV 83.7 fL (80.0-100.0); Mean Platelet Volume 11.7; Microcytosis Slight; Monocytes # (A) 0.1 k/uL (0-1.0); Monocytes % (A) 6 %; Neutrophils # (A) 1.4 k/uL (1.3-7.7); Neutrophils % (A) 58 %; Poikilocytosis Moderate; RBC 2.18 m/uL (3.80-5.40); RDW 19.2 % (11.5-15.5); WBC 2.4 k/uL (3.8-10.6)
[2022-03-18 13:35] LABS: HCT 18.3 % (34.0-46.0); HGB 5.5 gm/dL (11.4-16.0)
[2022-03-18 13:36] LABS: ALT 19 U/L (4-34); African American GFR (CKD) >90 (>60 ml/min/1.73 sqM); Albumin 2.9 g/dL (3.5-5.0); Alkaline Phosphatase 102 U/L (38-126); Anion Gap 5 mmol/L; Blood Urea Nitrogen 12 mg/dL (7-17); Carbon Dioxide 24 mmol/L (22-30); Chloride 110 mmol/L (98-107); Magnesium 1.7 mg/dL (1.6-2.3); Non-African American GFR(CKD) >90 (>60 ml/min/1.73 sqM); Sodium 139 mmol/L (137-145); Total Protein 6.5 g/dL (6.3-8.2)
[2022-03-18 13:37] LABS: AST 35 U/L (14-36); Calcium 8.2 mg/dL (8.4-10.2); Glucose 122 mg/dL (74-99); INR 1.3 (<1.2); Total Bilirubin 1.2 mg/dL (0.2-1.3)
[2022-03-18 13:38] LABS: Partial Thromboplastin Time 27.4 sec (22.0-30.0); Prothrombin Time 13.7 sec (9.0-12.0)
[2022-03-18 14:12] LABS: Platelet Count 83 k/uL (150-450)
[2022-03-18] MEDS ORDERED: SODIUM CHLORIDE 0.9% 1,000 ML IV ONE (14:17)
[2022-03-18 14:47] LABS: Anisocytosis Slight; Basophils % (A) 1 %; Eosinophils # (A) 0.1 k/uL (0-0.7); Eosinophils % (A) 3 %; Hypochromasia Marked; Lymphocytes # (A) 0.6 k/uL (1.0-4.8); Lymphocytes % (A) 32 %; MCH 24.2 pg (25.0-35.0); MCHC 28.4 g/dL (31.0-37.0); Mean Platelet Volume 11.8; Monocytes # (A) 0.1 k/uL (0-1.0); Monocytes % (A) 5 %; Neutrophils # (A) 1.1 k/uL (1.3-7.7); Neutrophils % (A) 57 %; Poikilocytosis Slight; RBC 2.06 m/uL (3.80-5.40); RDW 18.8 % (11.5-15.5)
[2022-03-18 14:49] LABS: HCT 17.5 % (34.0-46.0)
[2022-03-18 15:07] LABS: Platelet Count 65 k/uL (150-450)
[2022-03-18 21:35] LABS: Anisocytosis Slight; Basophils % (A) 1 %; Eosinophils # (A) 0.1 k/uL (0-0.7); Eosinophils % (A) 3 %; HCT 23.3 % (34.0-46.0); Hypochromasia Marked; Lymphocytes # (A) 0.9 k/uL (1.0-4.8); Lymphocytes % (A) 30 %; MCH 24.5 pg (25.0-35.0); MCHC 28.6 g/dL (31.0-37.0); MCV 85.7 fL (80.0-100.0); Mean Platelet Volume 10.7; Monocytes # (A) 0.2 k/uL (0-1.0); Monocytes % (A) 5 %; Neutrophils # (A) 1.7 k/uL (1.3-7.7); Neutrophils % (A) 58 %; Platelet Count 86 k/uL (150-450); Poikilocytosis Moderate; RBC 2.72 m/uL (3.80-5.40); RDW 17.9 % (11.5-15.5); WBC 2.9 k/uL (3.8-10.6)
[2022-03-18 21:37] LABS: HGB 6.7 gm/dL (11.4-16.0)
[2022-03-18 21:44] LABS: INR 1.3 (<1.2); Prothrombin Time 13.5 sec (9.0-12.0)
--- NOTE | 2022-03-18 21:54 | P.HPIM ---
History of Present Illness H&P Date: 03/18/22 Chief Complaint: Low hemoglobin Presents to ER from Dr. Alegria's office due to low hemoglobin level. Patient has been feeling generalized weakness and fatigue and felt heaviness in the legs and short of breath which is worsening for the past 1 month. Denied any chest pain. No palpitations. No nausea vomiting. No hematemesis.. Patient does states that she has been having dark stools. 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 Patient underwent lumbar spinal stenosis on 11/12/2021. Patient had EGD in November 2021. EGD showed mild antral gastritis but no evidence of peptic ulcer disease. Colonoscopy revealed 5 mm transverse colon polyp status post cold biopsy and rest of the colon appears normal. Patient also had small bowel capsule endoscopy as well. Duodenal biopsy showed mild intraepithelial lymphocytosis with preserved villous architecture. Correlate with celiac disease serology studies is suggested. Patient recently had ultrasound of liver showed heterogeneous hypertrophic appearance of the liver consistent with known hepatocellular disease. Her cirrhosis is redemonstrated. Review of Systems Constitutional: Patient denies any fever or chills . Patient does have generalized weakness and. Abdomen: Patient denied nausea vomiting and diarrhea and abdominal pain. Cardiovascular: Patient denies any chest pain or short of breath no palpitations. Respiratory: patient denied any cough is from production. No shortness of breath Neurologic: Patient denied any numbness or tingling headache. Musculoskeletal: Patient denies any complaints of joint swelling or deformity. Skin: Negative Psychiatric: Negative Endocrine: No heat or cold intolerance. No recent weight gain. Genitourinary: No dysuria or hematuria. All other 14 point ROS negative except the above Past Medical History Past Medical History: Atrial Fibrillation, Heart Failure, Diabetes Mellitus, GERD/Reflux, Hyperlipidemia, Hypertension, Liver Disease, Osteoarthritis (OA), Sleep Apnea/CPAP/BIPAP, Thyroid Disorder Additional Past Medical History / Comment(s): Covid pneumonia 09/2021, NIDDM type II, post aortic valve replacement Afib/converted, enlarged fatty liver, DEISI with Cpap, chronic low back pain with spinal stenosis/DDD, CHF with bilateral pleural effusions/bilateral thoracentesis when pt had valve surgery, hypothyroid, arthritis in multiple joints History of Any Multi-Drug Resistant Organisms: None Reported Past Surgical History: Appendectomy, Cardiac Valve Replacement, Cholecystectomy, Heart Catheterization, Orthopedic Surgery, Tonsillectomy, Tubal Ligation Additional Past Surgical History / Comment(s): TREY, 2019 bioprosthetic aortic valve surgery/clip L atrial appendage/post op bilateral thoracentesis, thyroid removed d/t hyperactivity, r foot bunionectomy. Past Anesthesia/Blood Transfusion Reactions: Postoperative Nausea & Vomiting (PONV) Additional Past Anesthesia/Blood Transfusion Reaction / Comment(s): no hx blood transfusion Past Psychological History: Depression Smoking Status: Former smoker - Past Family History Mother Family Medical History: CVA/TIA Additional Family Medical History / Comment(s): Mother of a blood clot in her brainstem. Father Family Medical History: Cancer, Congestive Heart Failure (CHF), COPD Additional Family Medical History / Comment(s): colon cancer Medications and Allergies Home Medications Medication Instructions Recorded Confirmed Type Atorvastatin [Lipitor] 40 mg PO HS #30 tab 05/05/19 03/18/22 Rx Levothyroxine Sodium [Synthroid] 137 mcg PO AC-BRKFST 05/21/19 03/18/22 History Cetirizine HCl [Zyrtec] 10 mg PO HS 09/30/21 03/18/22 History metFORMIN HCL [Glucophage] 500 mg PO BID 09/30/21 03/18/22 History Albuterol Sulfate [Proair Hfa] 2 puff INHALATION RT-Q6H PRN 11/05/21 03/18/22 History Metoprolol Tartrate [Lopressor] 25 mg PO DAILY 11/05/21 03/18/22 History Budesonide/Formoterol Fumarate 2 puff INHALATION RT-TID 11/11/21 03/18/22 History [Symbicort 80-4.5 Mcg Inhaler] HYDROcodone/APAP 5-325MG [[place] 1 tab PO Q6H PRN 03/18/22 03/18/22 History 5-325] Ondansetron [Zofran] 4 mg PO Q8H PRN 03/18/22 03/18/22 History Allergies Allergy/AdvReac Type Severity Reaction Status Date / Time Iodinated Contrast Media Allergy Severe Vomiting/ra Verified 03/18/22 14:50 [Iodinated Contrast- Oral sh/itching and IV Dye] latex Allergy Itching/queta Verified 03/18/22 14:50 h adhesive tape Allergy Itching/queta Uncoded 03/18/22 14:50 h Physical Exam Vitals: Vital Signs Temp Pulse Resp BP Pulse Ox 03/18/22 20:31 71 18 125/54 98 03/18/22 19:20 75 18 128/66 98 03/18/22 19:00 98.5 F 81 18 134/60 100 03/18/22 18:30 98.5 F 80 18 122/66 100 03/18/22 18:00 98.1 F 72 20 129/66 99 03/18/22 17:35 97.8 F 72 22 129/66 98 03/18/22 17:20 71 15 142/59 98 03/18/22 17:10 71 16 128/62 99 03/18/22 17:05 97.9 F 71 16 151/62 99 03/18/22 17:00 72 15 152/55 99 03/18/22 16:50 98.1 F 75 16 152/63 98 03/18/22 16:40 74 31 H 147/62 99 03/18/22 16:35 97.8 F 75 18 147/62 97 03/18/22 16:30 97.7 F 76 16 144/61 98 03/18/22 16:25 97.6 F 76 20 144/61 98 03/18/22 16:20 98.2 F 84 14 128/54 99 03/18/22 16:19 98.2 F 75 18 128/54 97 03/18/22 16:10 74 13 03/18/22 16:00 74 27 H 100 03/18/22 15:50 75 11 L 100 03/18/22 15:40 77 19 100 03/18/22 15:30 77 7 L 100 03/18/22 15:20 74 12 98 03/18/22 15:10 74 14 100 03/18/22 15:00 77 14 100 03/18/22 14:50 74 15 100 03/18/22 14:42 74 100 03/18/22 14:40 73 10 L 100 03/18/22 14:30 74 17 03/18/22 14:20 74 18 06/16/22 13:50 98.1 F 72 17 99/73 98 03/18/22 12:32 71 18 127/48 98 Intake and Output 03/18/22 03/18/22 03/18/22 06:59 14:59 22:59 Intake Total 310 Balance 310 Intake: Blood Product 310 Rc As-1 Unit 310 [id number] Other: Weight 104.326 kg PHYSICAL EXAMINATION: Patient is lying in the bed comfortably, no acute distress, awake alert and oriented.. HEENT: Normocephalic. Neck is supple. Pupils reactive. Nostrils clear. Oral cavity is moist. Neck reveals no JVD, carotid bruits, or thyromegaly. CHEST EXAMINATION: Trachea is central. Symmetrical expansion. Lung mathur clear to auscultation and percussion. CARDIAC: Normal S1, S2 with no gallops. No murmurs ABDOMEN: Soft. Bowel sounds normal. No organomegaly. No abdominal bruits. Extremities: Trace pedal edema. No clubbing or cyanosis Neurologically awake, alert, oriented x3 with well-coordinated movements. No focal deficits noted Skin: No rash or skin lesions. Psychiatric: Coperative. Nonsuicidal Musculoskeletal: No joint swelling or deformity. Normal range of motion. Results CBC & Chem 7: 03/19/22 08:37 03/19/22 08:37 Labs: Abnormal Lab Results - Last 24 Hours (Table) 03/18/22 03/18/22 03/18/22 Range/Units 12:36 13:15 13:15 WBC 2.4 L (3.8-10.6) k/uL RBC 2.18 L (3.80-5.40) m/uL Hgb 5.5 L* (11.4-16.0) gm/dL Hct 18.3 L* (34.0-46.0) % MCH (25.0-35.0) pg MCHC 29.8 L (31.0-37.0) g/dL RDW 19.2 H (11.5-15.5) % Plt Count 83 L (150-450) k/uL Neutrophils # (1.3-7.7) k/uL Lymphocytes # 0.7 L (1.0-4.8) k/uL PT 13.7 H (9.0-12.0) sec INR 1.3 H (<1.2) Chloride (98-107) mmol/L Glucose (74-99) mg/dL Calcium (8.4-10.2) mg/dL Albumin (3.5-5.0) g/dL Crossmatch See Detail 03/18/22 03/18/22 03/18/22 Range/Units 13:15 14:32 20:52 WBC 2.0 L 2.9 L (3.8-10.6) k/uL RBC 2.06 L 2.72 L (3.80-5.40) m/uL Hgb 5.0 L* 6.7 L* D (11.4-16.0) gm/dL Hct 17.5 L* 23.3 L (34.0-46.0) % MCH 24.2 L 24.5 L (25.0-35.0) pg MCHC 28.4 L 28.6 L (31.0-37.0) g/dL RDW 18.8 H 17.9 H (11.5-15.5) % Plt Count 65 L 86 L (150-450) k/uL Neutrophils # 1.1 L (1.3-7.7) k/uL Lymphocytes # 0.6 L 0.9 L (1.0-4.8) k/uL PT (9.0-12.0) sec INR (<1.2) Chloride 110 H (98-107) mmol/L Glucose 122 H (74-99) mg/dL Calcium 8.2 L (8.4-10.2) mg/dL Albumin 2.9 L (3.5-5.0) g/dL Crossmatch Thrombosis Risk Factor Assmnt - DVT/VTE Prophylaxis DVT/VTE Prophylaxis: Mechanical Prophylaxis ordered Assessment and Plan Assessment: Acute on chronic blood loss anemia Symptomatic anemia Acute GI bleed with dark-colored stools. Patient had recent work-up including EGD, colonoscopy and small bowel endoscopy Recent duodenal biopsies showed correlate for celiac disease. Hypertension Hyperlipidemia Osteoarthritis Obstructive sleep apnea on CPAP at home Hypothyroidism Chronic low back pain with recent lumbar fusion surgery in November 2021 History of bioprosthetic aortic valve surgery. Was on anticoagulation with Paroxysmal atrial fibrillation Depression History of smoking Plan: Patient be current gentle IV hydration and started on PPI IV twice daily. Monitor H&H. Patient was transfused with 2 units of PRBC and continue to follow hemoglobin. Anticoagulation is on hold. Current home medications and pain management. Follow-up closely. Time with Patient: Greater than 30
[2022-03-18] MEDS: PANTOPRAZOLE 40 MG/10 ML VIAL IVP SCH (22:38)
[2022-03-19 00:42] LABS: Anisocytosis Slight; Basophils % (A) 1 %; Eosinophils # (A) 0.1 k/uL (0-0.7); Eosinophils % (A) 2 %; Hypochromasia Marked; Lymphocytes # (A) 0.7 k/uL (1.0-4.8); Lymphocytes % (A) 33 %; MCH 25.6 pg (25.0-35.0); MCHC 30.1 g/dL (31.0-37.0); MCV 85.2 fL (80.0-100.0); Mean Platelet Volume 10.6; Monocytes # (A) 0.1 k/uL (0-1.0); Monocytes % (A) 7 %; Neutrophils # (A) 1.1 k/uL (1.3-7.7); Neutrophils % (A) 55 %; Poikilocytosis Marked; RBC 2.33 m/uL (3.80-5.40); WBC 2.1 k/uL (3.8-10.6)
[2022-03-19 00:54] LABS: HCT 19.9 % (34.0-46.0)
[2022-03-19 00:55] LABS: Platelet Count 75 k/uL (150-450)
[2022-03-19] MEDS: SYMBICORT 80-4.5 MCG INHALER INHALATION SCH ×3 (07:36→19:29)
[2022-03-19] MEDS: ALBUTEROL NEBULIZED 2.5 MG/3 ML INHALATION PRN (07:36)
[2022-03-19 08:54] LABS: Anisocytosis Slight; Basophils % (A) 1 %; Eosinophils # (A) 0.1 k/uL (0-0.7); Eosinophils % (A) 2 %; HCT 22.9 % (34.0-46.0); Hypochromasia Marked; Lymphocytes # (A) 0.6 k/uL (1.0-4.8); Lymphocytes % (A) 25 %; MCH 26.6 pg (25.0-35.0); MCHC 30.7 g/dL (31.0-37.0); MCV 86.5 fL (80.0-100.0); Mean Platelet Volume 10.8; Monocytes # (A) 0.1 k/uL (0-1.0); Monocytes % (A) 6 %; Neutrophils # (A) 1.4 k/uL (1.3-7.7); Neutrophils % (A) 63 %; Poikilocytosis Marked; RBC 2.65 m/uL (3.80-5.40); RDW 18.2 % (11.5-15.5); WBC 2.2 k/uL (3.8-10.6)
[2022-03-19] MEDS: LEVOTHYROXINE 137 MCG TAB PO SCH (08:56)
[2022-03-19 08:57] LABS: Platelet Count 86 k/uL (150-450)
[2022-03-19 09:12] LABS: African American GFR (CKD) >90 (>60 ml/min/1.73 sqM); Anion Gap 7 mmol/L; Blood Urea Nitrogen 11 mg/dL (7-17); Calcium 7.6 mg/dL (8.4-10.2); Carbon Dioxide 23 mmol/L (22-30); Chloride 110 mmol/L (98-107); Glucose 109 mg/dL (74-99); Non-African American GFR(CKD) >90 (>60 ml/min/1.73 sqM); Potassium 3.8 mmol/L (3.5-5.1); Sodium 140 mmol/L (137-145)
--- NOTE | 2022-03-19 11:03 | P.CONS ---
History of Present Illness - Reason for Consult Consult date: 03/19/22 Acute on chronic anemia Requesting physician: Victor Hugo Carcamo - Chief Complaint Abnormal labs - History of Present Illness This very pleasant 61-year-old female who presented to the emergency department as directed by Dr. Alegria her brokerage branch manager. She follows with regularly for history of chronic iron deficiency anemia. Patient also has history of nonalcoholic hepatic steatosis stage IV and pelvis with Dr. Figueroa, atrial fibrillation on Eliquis last dose taken 03/17/2022. Patient states that she has had increased shortness of breath weakness for the last couple weeks. States she has been noticing more black stools that have increased foul odor. She does have a his tory of prior blood transfusion. She does get iron infusions and believes her last one was approximately 3 weeks ago. She had extensive workup in November of this year for anemia. She underwent EGD and colonoscopy with Dr. ye on 11/07/2021. EGD showed mild antral gastritis and colonoscopy showed transverse colon status post polypectomy. She also underwent a small bowel capsule at this time no report is available. Patient states she cannot remember the results. She currently denies any abdominal pain, nausea or vomiting. No chest pain, some shortness of breath and generalized weakness. She's been afebrile. Admitting labs WBC 2.4 hemoglobin 5.5 hematocrit 18 platelet count 83,000 INR 1.3 sodium 139 potassium 4.0 BUN 12 creatinine 0.5 for total bilirubin 1.2 AST 35 ALT 19 alkaline phosphatase 102 Review of Systems REVIEW OF SYSTEMS: CARDIOPULMONARY: No chest pain. Increased shortness of breath. Gastrointestinal: No abdominal pain or epigastric pain. No nausea or vomiting. No hematemesis, coffee-ground emesis. No patient reports no rectal bleeding however does state that she's been having black foul odor stool. GENITOURINARY: No dysuria or hematuria. MUSCULOSKELETAL: Reports normal range of motion., Joint pain. SKIN: No rashes. No jaundice. ENDOCRINE: No chills, fevers. No excessive weight gain or loss. No polydipsia or polyuria. PSYCHIATRIC: Unremarkable. NEUROLOGY: No change in mental status. Denies dizziness, headache. ENT: Vision unremarkable. CONSTITUTIONAL: No recent weight loss. No fever, chills, night sweats. Gen eralized weakness. Past Medical History Past Medical History: Atrial Fibrillation, Heart Failure, Diabetes Mellitus, GERD/Reflux, Hyperlipidemia, Hypertension, Liver Disease, Osteoarthritis (OA), Sleep Apnea/CPAP/BIPAP, Thyroid Disorder Additional Past Medical History / Comment(s): Covid pneumonia 09/2021, NIDDM type II, post aortic valve replacement Afib/converted, enlarged fatty liver, DEISI with Cpap, chronic low back pain with spinal stenosis/DDD, CHF with bilateral pleural effusions/bilateral thoracentesis when pt had valve surgery, hypothyroid, arthritis in multiple joints History of Any Multi-Drug Resistant Organisms: None Reported Past Surgical History: Appendectomy, Cardiac Valve Replacement, Cholecystectomy, Heart Catheterization, Orthopedic Surgery, Tonsillectomy, Tubal Ligation Additional Past Surgical History / Comment(s): TREY, 2019 bioprosthetic aortic valve surgery/clip L atrial appendage/post op bilateral thoracentesis, thyroid removed d/t hyperactivity, r foot bunionectomy. Past Anesthesia/Blood Transfusion Reactions: Postoperative Nausea & Vomiting (PONV) Additional Past Anesthesia/Blood Transfusion Reaction / Comm: no hx blood transfusion Past Psychological History: Depression Smoking Status: Former smoker - Past Family History Mother Family Medical History: CVA/TIA Additional Family Medical History / Comment(s): Mother of a blood clot in her brainstem. Father Family Medical History: Cancer, Congestive Heart Failure (CHF), COPD Additional Family Medical History / Comment(s): colon cancer Medications and Allergies Home Medications Medication Instructions Recorded Confirmed Type Atorvastatin [Lipitor] 40 mg PO HS #30 tab 05/05/19 03/18/22 Rx Levothyroxine Sodium [Synthroid] 137 mcg PO AC-BRKFST 05/21/19 03/18/22 History Cetirizine HCl [Zyrtec] 10 mg PO HS 09/30/21 03/18/22 History metFORMIN HCL [Glucophage] 500 mg PO BID 09/30/21 03/18/22 History Albuterol Sulfate [Proair Hfa] 2 puff INHALATION RT-Q6H PRN 11/05/21 03/18/22 History Metoprolol Tartrate [Lopressor] 25 mg PO DAILY 11/05/21 03/18/22 History Budesonide/Formoterol Fumarate 2 puff INHALATION RT-TID 11/11/21 03/18/22 History [Symbicort 80-4.5 Mcg Inhaler] HYDROcodone/APAP 5-325MG [[place] 1 tab PO Q6H PRN 03/18/22 03/18/22 History 5-325] Ondansetron [Zofran] 4 mg PO Q8H PRN 03/18/22 03/18/22 History Allergies Allergy/AdvReac Type Severity Reaction Status Date / Time Iodinated Contrast Media Allergy Severe Vomiting/ra Verified 03/18/22 14:50 [Iodinated Contrast- Oral sh/itching and IV Dye] latex Allergy Itching/queta Verified 03/18/22 14:50 h adhesive tape Allergy Itching/queta Uncoded 03/18/22 14:50 h Physical Exam Vitals: Vital Signs Temp Pulse Resp BP Pulse Ox 03/19/22 07:46 75 03/19/22 07:40 98 03/19/22 07:36 74 03/19/22 05:20 98 F 70 18 134/61 97 03/19/22 03:18 98 F 74 18 138/62 97 03/19/22 02:48 98.2 F 76 18 126/51 98 03/19/22 02:38 98.2 F 79 18 132/51 98 03/18/22 22:41 81 18 135/75 98 03/18/22 20:31 71 18 125/54 98 03/18/22 19:20 75 18 128/66 98 03/18/22 19:00 98.5 F 81 18 134/60 100 03/18/22 18:30 98.5 F 80 18 122/66 100 03/18/22 18:00 98.1 F 72 20 129/66 99 03/18/22 17:35 97.8 F 72 22 129/66 98 03/18/22 17:20 71 15 142/59 98 03/18/22 17:10 71 16 128/62 99 03/18/22 17:05 97.9 F 71 16 151/62 99 03/18/22 17:00 72 15 152/55 99 03/18/22 16:50 98.1 F 75 16 152/63 98 03/18/22 16:40 74 31 H 147/62 99 03/18/22 16:35 97.8 F 75 18 147/62 97 03/18/22 16:30 97.7 F 76 16 144/61 98 03/18/22 16:25 97.6 F 76 20 144/61 98 03/18/22 16:20 98.2 F 84 14 128/54 99 03/18/22 16:19 98.2 F 75 18 128/54 97 03/18/22 16:10 74 13 03/18/22 16:00 74 27 H 100 03/18/22 15:50 75 11 L 100 03/18/22 15:40 77 19 100 03/18/22 15:30 77 7 L 100 03/18/22 15:20 74 12 98 03/18/22 15:10 74 14 100 03/18/22 15:00 77 14 100 03/18/22 14:50 74 15 100 03/18/22 14:42 74 100 03/18/22 14:40 73 10 L 100 03/18/22 14:30 74 17 03/18/22 14:20 74 18 03/18/22 13:50 98.1 F 72 17 99/73 98 03/18/22 12:32 71 18 127/48 98 Intake and Output 03/18/22 03/19/22 03/19/22 22:59 06:59 14:59 Intake Total 310 310 Balance 310 310 Intake: Blood Product 310 310 Rc As-1 Unit 310 [id number] Rc As-1 Unit 310 [id number] General appearance: The patient is alert, oriented, appears in no acute distress. HET: Head is normocephalic and atraumatic. Conjunctiva pink. Sclera anicteric. Neck: Supple without lymphadenopathy. Trachea midline. Heart: S1 S2. Regular rate and rhythm. Lungs: Clear to auscultation. Abdomen: Soft, nontender, nondistended with bowel sounds. No guarding or rigidity. Skin: No rashes. No jaundice. Extremities: Normal skin color and turgor. No pedal edema. Neurological: No focal deficits. Alert and oriented x3. Results CBC & Chem 7: 03/19/22 08:37 03/19/22 08:37 Labs: Abnormal Lab Results - Last 24 Hours (Table) 03/18/22 03/18/22 03/18/22 Range/Units 12:36 13:15 13:15 WBC 2.4 L (3.8-10.6) k/uL RBC 2.18 L (3.80-5.40) m/uL Hgb 5.5 L* (11.4-16.0) gm/dL Hct 18.3 L* (34.0-46.0) % MCH (25.0-35.0) pg MCHC 29.8 L (31.0-37.0) g/dL RDW 19.2 H (11.5-15.5) % Plt Count 83 L (150-450) k/uL Neutrophils # (1.3-7.7) k/uL Lymphocytes # 0.7 L (1.0-4.8) k/uL PT 13.7 H (9.0-12.0) sec INR 1.3 H (<1.2) Chloride (98-107) mmol/L Glucose (74-99) mg/dL Calcium (8.4-10.2) mg/dL Albumin (3.5-5.0) g/dL Crossmatch See Detail 03/18/22 03/18/22 03/18/22 Range/Units 13:15 14:32 20:52 WBC 2.0 L 2.9 L (3.8-10.6) k/uL RBC 2.06 L 2.72 L (3.80-5.40) m/uL Hgb 5.0 L* 6.7 L* D (11.4-16.0) gm/dL Hct 17.5 L* 23.3 L (34.0-46.0) % MCH 24.2 L 24.5 L (25.0-35.0) pg MCHC 28.4 L 28.6 L (31.0-37.0) g/dL RDW 18.8 H 17.9 H (11.5-15.5) % Plt Count 65 L 86 L (150-450) k/uL Neutrophils # 1.1 L (1.3-7.7) k/uL Lymphocytes # 0.6 L 0.9 L (1.0-4.8) k/uL PT (9.0-12.0) sec INR (<1.2) Chloride 110 H (98-107) mmol/L Glucose 122 H (74-99) mg/dL Calcium 8.2 L (8.4-10.2) mg/dL Albumin 2.9 L (3.5-5.0) g/dL Crossmatch 03/18/22 03/19/22 Range/Units 20:52 00:19 WBC 2.1 L (3.8-10.6) k/uL RBC 2.33 L (3.80-5.40) m/uL Hgb 6.0 L* (11.4-16.0) gm/dL Hct 19.9 L* (34.0-46.0) % MCH (25.0-35.0) pg MCHC 30.1 L (31.0-37.0) g/dL RDW 18.0 H (11.5-15.5) % Plt Count 75 L (150-450) k/uL Neutrophils # 1.1 L (1.3-7.7) k/uL Lymphocytes # 0.7 L (1.0-4.8) k/uL PT 13.5 H (9.0-12.0) sec INR 1.3 H (<1.2) Chloride (98-107) mmol/L Glucose (74-99) mg/dL Calcium (8.4-10.2) mg/dL Albumin (3.5-5.0) g/dL Crossmatch Assessment and Plan (1) Acute on chronic anemia Narrative/Plan: 61-year-old female who presented to the emergency department directed by Dr. Muir her brokerage branch manager. The presenting hemoglobin of 5.5. States she has been having dark stools. Bowel smelling. She's been symptomatic with shortness of breath and weakness. She does undergo regular iron infusions last one approximately 3 weeks ago. She does have a history of previous blood transfusion in the past. She was seen and evaluated for symptomatic iron deficiency anemia on 11/07/2021 and had an EGD and colonoscopy done by Dr. Figueroa. EGD showed mild antral gastritis and: Mynor he was significant for polypectomy. She also underwent a small bowel capsule at that time however no report is available. Due to the black stools and drop in her hemoglobin along with use of anticoagulation, will proceed with EGD to assess for possible etiology including esophagitis, peptic ulcer disease, AVM or other possible etiologies. Current Visit: Yes Status: Acute Code(s): D64.9 - ANEMIA, UNSPECIFIED SNOMED Code(s): 868963343 (2) Nonalcoholic steatohepatitis (CALLEJAS) Current Visit: No Status: Acute Code(s): K75.81 - NONALCOHOLIC STEATOHEPATITIS ([place]AS) SNOMED Code(s): 241813509 (3) Pancytopenia Current Visit: No Status: Acute Priority: High Code(s): D61.818 - OTHER PANCYTOPENIA SNOMED Code(s): 813605012 Plan: 1. Continue symptomatic and supportive care 2. Keep nothing by mouth 3. Protonix 40 mg twice a day 4. Hematology oncology, recommendations are appreciated 5. Daily CBC, transfuse for hemoglobin less than 7 6. Will proceed with EGD this afternoon, procedure discussed with patient in cluding risks and benefits. Patient willing to proceed. Thank you for allowing us to participate in the care of the patient, the GI service will sign off, gastroenterology will not be available at the hospital this weekend and through next week. If further evaluation by gastroenterology is required the patient will need transfer as per the primary team's discretion. Dr. Chino Figueroa I agree with the dictator's note, documented as a scribe by Farhana Gray.
[2022-03-19 11:16] LABS: % Iron Saturation 12.52 (12.00-45.00); Ferritin 43.5 ng/mL (10.0-291.0)
[2022-03-19] MEDS: PANTOPRAZOLE 40 MG/10 ML VIAL IVP SCH ×2 (11:32→21:03)
[2022-03-19] MEDS: METOPROLOL TARTRATE 25 MG TAB PO SCH (11:39)
[2022-03-19 14:17] LABS: Glucose,Whole Blood 102 mg/dL (70-110)
[2022-03-19] MEDS: HYDROcodone/APAP 5-325MG 1 EACH TAB PO PRN (14:17)
[2022-03-19] MEDS ORDERED: PROPOFOL 10 MG/ML 20 ML VIAL IV ONE (14:51)
[2022-03-19] MEDS ORDERED: LIDOCAINE 2% INJ 20 MG/ML (2 ML VIAL) ONE (14:51)
[2022-03-19] MEDS ORDERED: LACTATED RINGERS 1,000 ML IV ONE (14:54)
--- NOTE | 2022-03-19 15:09 | P.PN ---
Subjective Progress Note Date: 03/19/22 Presents to ER from Dr. Alegria's office due to low hemoglobin level. Patient has been feeling generalized weakness and fatigue and felt heaviness in the legs and short of breath which is worsening for the past 1 month. Denied any chest pain. No palpitations. No nausea vomiting. No hematemesis.. Patient does states that she has been having dark stools. 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 Patient underwent lumbar spinal stenosis on 11/12/2021. Patient had EGD in November 2021. EGD showed mild antral gastritis but no evidence of peptic ulcer disease. Colonoscopy revealed 5 mm transverse colon polyp status post cold biopsy and rest of the colon appears normal. Patient also had small bowel capsule endoscopy as well. Duodenal biopsy showed mild intraepithelial lymphocytosis with preserved villous architecture. Correlate with celiac disease serology studies is suggested. Patient recently had ultrasound of liver showed heterogeneous hypertrophic appearance of the liver consistent with known hepatocellular disease. Her cirrhosis is redemonstrated. 03/19/2022 Patient is seen in follow-up with morning continues to be a hold in the ER. Patient has been evaluated by GI and is undergoing EGD this afternoon with Dr. Figueroa. Patient hemoglobin is 7.0 this morning and iron studies in process and Dr. Alegria hematology consulted. Patient has been following with hematology in the outpatient setting as patient recently had anemia workup initiated. Recommend continue holding any anticoagulation at this time. Plan is to give 1 unit of PRBCs. Patient normally takes oral diabetic agents and will continue a sliding scale for now as patient is nothing by mouth. Recommend IV Protonix. Patient having some generalized abdominal pain and lower back pain will resume home medication. Patient is afebrile and denies Review of systems: Constitutional: No reports of fatigue, fever, or chills Cardiovascular: No reports of chest pain or palpitations Respiratory: No reports of shortness of breath or cough GI: No reports of nausea, vomiting, or diarrhea, reports no further bleeding per rectum or emesis : No reports of dysuria or retention Neurovascular: reports of generalized weakness All medications have been reviewed Active Medications Hydrocodone Bitart/Acetaminophen (Hydrocodone/Apap 5-325mg 1 Each Tab) 1 each PO Q6H PRN PRN Reason: Pain Last Admin: 03/19/22 14:17 Dose: 1 each Albuterol Sulfate (Albuterol Nebulized 2.5 Mg/3 Ml) 2.5 mg INHALATION RT-Q6H PRN PRN Reason: Shortness Of Breath Last Admin: 03/19/22 07:36 Dose: 2.5 mg Atorvastatin Calcium (Atorvastatin 40 Mg Tab) 40 mg PO [facility] Budesonide/Formoterol Fumarate (Symbicort 80-4.5 Mcg Inhaler) 2 puff INHALATION RT-TID [facility] Last Admin: 03/19/22 07:36 Dose: 2 puff Insulin Aspart (Insulin Aspart (Novolog) 100 Unit/Ml Vial) 0 unit SQ [facility]; Protocol Levothyroxine Sodium (Levothyroxine 137 Mcg Tab) 137 mcg PO DAILY@0630 [facility] Last Admin: 03/19/22 08:56 Dose: 137 mcg Metoprolol Tartrate (Metoprolol Tartrate 25 Mg Tab) 25 mg PO DAILY [facility] Last Admin: 03/19/22 11:39 Dose: 25 mg Pantoprazole Sodium (Pantoprazole 40 Mg/10 Ml Vial) 40 mg IVP BID [facility] Last Admin: 03/19/22 11:32 Dose: 40 mg Physical exam: Patient is lying in the bed comfortably, no acute distress, awake alert and oriented.. Pale, obese HEENT: Normocephalic. Neck is supple. Pupils reactive. Nostrils clear. Oral cavity is moist. Neck reveals no JVD, carotid bruits, or thyromegaly. CHEST EXAMINATION: Trachea is central. Symmetrical expansion. Lung mathur clear to auscultation and percussion. CARDIAC: Normal S1, S2 with no gallops. No murmurs ABDOMEN: Soft. Mild tenderness noted of the left and right lower quadrants on palpation, Bowel sounds normal. No organomegaly. No abdominal bruits. Extremities: Trace pedal edema. No clubbing or cyanosis Neurologically awake, alert, oriented x3 with well-coordinated movements. No focal deficits noted Skin: No rash or skin lesions. Psychiatric: Cooperative. Non-suicidal Musculoskeletal: No joint swelling or deformity. Normal range of motion. Assessment: Acute on chronic blood loss anemia Symptomatic anemia Acute GI bleed with dark-colored stools. Patient had recent work-up including EGD, colonoscopy and small bowel endoscopy Recent duodenal biopsies showed correlate for celiac disease. Hypertension Hyperlipidemia Osteoarthritis Obstructive sleep apnea on CPAP at home Hypothyroidism Chronic low back pain with recent lumbar fusion surgery in November 2021 History of bioprosthetic aortic valve surgery. Was on anticoagulation Paroxysmal atrial fibrillation Depression History of smoking Plan: Recommend the patient to continue on IV Protonix twice daily and fluids have been discontinued. Patient is scheduled to undergo EGD with Dr. [place] [facility] today and will await report Dr. Alegria hematology consulted and patient has been following in the outpatient setting with them and further workup in process at this time for anemia. Hemoglobin is 7.0 today and will give 1 unit and recommend serial H&H for close monitoring. Recommend continue with holding anticoagulation and will discuss with GI and hematology about treatment plan moving forward after EGD Appropriate home medications have been resumed and will resume [place] as patient is continuing to have lower back pain which she does chronically. Recommend repeat labs and will continue to monitor closely. Family at the bedside and questions and concerns were answered. The impression and plan of care has been dictated by Mouna Kaiser, Nurse Practitioner as directed. Dr. Pablo MD I have performed a history and examination and MDM of this patient, discussed the same with the dictator, and agree with the dictator's assessment and plan as written ,documented as a scribe. Based on total visit time, I have performed more than 50% of the visit. Objective - Vital Signs Vital signs: Vital Signs Temp 97.5 F L 03/19/22 09:00 Pulse 80 03/19/22 09:00 Resp 17 03/19/22 09:00 BP 138/62 03/19/22 09:00 Pulse Ox 97 03/19/22 09:00 FiO2 Intake & Output 03/18/22 03/19/22 03/19/22 18:59 06:59 18:59 Intake Total 0 620 Balance 0 620 Weight 104.326 kg Intake: Blood Product 0 620 Rc As-1 Unit 310 [id number] Rc As-1 Unit 0 310 [id number] - Labs CBC & Chem 7: 03/19/22 08:37 03/19/22 08:37 Labs: Abnormal Lab Results - Last 24 Hours (Table) 03/18/22 03/18/22 03/18/22 Range/Units 12:36 13:15 13:15 WBC 2.4 L (3.8-10.6) k/uL RBC 2.18 L (3.80-5.40) m/uL Hgb 5.5 L* (11.4-16.0) gm/dL Hct 18.3 L* (34.0-46.0) % MCH (25.0-35.0) pg MCHC 29.8 L (31.0-37.0) g/dL RDW 19.2 H (11.5-15.5) % Plt Count 83 L (150-450) k/uL Neutrophils # (1.3-7.7) k/uL Lymphocytes # 0.7 L (1.0-4.8) k/uL PT 13.7 H (9.0-12.0) sec INR 1.3 H (<1.2) Chloride (98-107) mmol/L Glucose (74-99) mg/dL Calcium (8.4-10.2) mg/dL Albumin (3.5-5.0) g/dL Crossmatch See Detail 03/18/22 03/18/22 03/18/22 Range/Units 13:15 14:32 20:52 WBC 2.0 L 2.9 L (3.8-10.6) k/uL RBC 2.06 L 2.72 L (3.80-5.40) m/uL Hgb 5.0 L* 6.7 L* D (11.4-16.0) gm/dL Hct 17.5 L* 23.3 L (34.0-46.0) % MCH 24.2 L 24.5 L (25.0-35.0) pg MCHC 28.4 L 28.6 L (31.0-37.0) g/dL RDW 18.8 H 17.9 H (11.5-15.5) % Plt Count 65 L 86 L (150-450) k/uL Neutrophils # 1.1 L (1.3-7.7) k/uL Lymphocytes # 0.6 L 0.9 L (1.0-4.8) k/uL PT (9.0-12.0) sec INR (<1.2) Chloride 110 H (98-107) mmol/L Glucose 122 H (74-99) mg/dL Calcium 8.2 L (8.4-10.2) mg/dL Albumin 2.9 L (3.5-5.0) g/dL Crossmatch 03/18/22 03/19/22 03/19/22 Range/Units 20:52 00:19 08:37 WBC 2.1 L 2.2 L (3.8-10.6) k/uL RBC 2.33 L 2.65 L (3.80-5.40) m/uL Hgb 6.0 L* 7.0 L (11.4-16.0) gm/dL Hct 19.9 L* 22.9 L (34.0-46.0) % MCH (25.0-35.0) pg MCHC 30.1 L 30.7 L (31.0-37.0) g/dL RDW 18.0 H 18.2 H (11.5-15.5) % Plt Count 75 L 86 L (150-450) k/uL Neutrophils # 1.1 L (1.3-7.7) k/uL Lymphocytes # 0.7 L 0.6 L (1.0-4.8) k/uL PT 13.5 H (9.0-12.0) sec INR 1.3 H (<1.2) Chloride (98-107) mmol/L Glucose (74-99) mg/dL Calcium (8.4-10.2) mg/dL Albumin (3.5-5.0) g/dL Crossmatch 03/19/22 Range/Units 08:37 WBC (3.8-10.6) k/uL RBC (3.80-5.40) m/uL Hgb (11.4-16.0) gm/dL Hct (34.0-46.0) % MCH (25.0-35.0) pg MCHC (31.0-37.0) g/dL RDW (11.5-15.5) % Plt Count (150-450) k/uL Neutrophils # (1.3-7.7) k/uL Lymphocytes # (1.0-4.8) k/uL PT (9.0-12.0) sec INR (<1.2) Chloride 110 H (98-107) mmol/L Glucose 109 H (74-99) mg/dL Calcium 7.6 L (8.4-10.2) mg/dL Albumin (3.5-5.0) g/dL Crossmatch
[2022-03-19 15:13] LABS: Gliadin AB IgA, Deaminated NEGATIVE (NEGATIVE); Gliadin AB IgA, Unit 1.9 U/mL; Gliadin AB IgG, Deaminated NEGATIVE (NEGATIVE); Gliadin AB IgG, Unit <0.4 U/mL
--- NOTE | 2022-03-19 15:18 | P.PCN ---
Date of Procedure: 03/19/22 Procedure(s) Performed: BRIEF HISTORY: Patient is a 61-year-old, pleasant, white female admitted hospital she presented breath and was noted to have a hemoglobin of 5.3 g/dL. She received 3 units of PRBC transfusion. She is been having intermittent dark colored stools for the last few days. She has history of nonalcoholic cirrhosis of the liver related to fatty liver disease diagnosed a few months ago. Last EGD and colonoscopy in November of this year did show gastritis and small colon polyps. She has history of A. fib and has been on a eliquis which is currently on hold for the last 2 days. Because of the black tarry stools he scheduled for a repeat upper endoscopy today. PROCEDURE PERFORMED: Esophagogastroduodenoscopy with argon plasma coagulation. PREOPERATIVE DIAGNOSIS: Recurrent iron deficiency anemia. IV sedation per anesthesia. PROCEDURE: After informed consent was obtained, the patient was brought into the endoscopy unit. IV sedation was administered by Anesthesia under continuous monitoring. Initially the Olympus GIF-140 video endoscope was inserted into the mouth. Esophagus intubated without any difficulty. It was gradually advanced into the stomach and duodenum and carefully examined. The bulb and the second part of the duodenum appeared normal. The scope at this time was withdrawn to the stomach, adequately insufflated with air, and upon careful examination, mucosa of the antrum, had linear areas of telangiectasia consistent with mild gastric antral vascular ectasia and argon plasma coag ablation was performed with good hemostasis. There were some areas that had some mild oozing that was also coagulated. The cause of the body, cardia and the fundus appeared normal. The scope was then withdrawn into the esophagus. The GE junction was located at 39 cm from the incisors. The esophagus appeared normal. There were no erosions or ulcerations seen and the patient tolerated the procedure well. IMPRESSION: 1. 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 2. No evidence of gastric or esophageal varices. RECOMMENDATIONS: The findings of this examination were discussed with the patient as well as a family. At this time she will continue with iron suppl ements and IV infusions. Diet will be advanced as tolerated. Monitor CBC closely.. Recommend holding eliquis for 2 days.
--- NOTE | 2022-03-19 15:21 | P.CONS ---
History of Present Illness - Reason for Consult Consult date: 03/19/22 Anemia Requesting physician: Victor Hugo Carcamo - History of Present Illness Ms Weston is a female, with multiple medical issues, initially seen in consult at [facility] on 11/06/21. The patient had been sent in by her PCP because of abnormal hemoglobin, as well as progressive fatigue. She was found to have a hemoglobin of 6.6, WBC 1.13 and platelets of 94,000. Hemoglobin fell further to 5.5. The patient had extensive anemia workup that was consistent with iron deficiency. Haptoglobin was low but this was felt to be due to transfusion effect and chronic liver disease as other hemolysis markers were normal. The patient has a known history of fatty liver disease with subsequent diagnosis of progression to cirrhosis. The patient had a bovine valve replacement in 2019. She is also on eliquis. The patient had upper and lower endoscopies, as well as capsule endoscopy, negative for any source of active bleed. The patient received blood transfusion as well as IV iron. She was then discharged, and readmitted on 11/12/21 for decompression and fusion at L4 and L5. Hemoglobin was better at 7.7, with WBC normal and platelets in the 80-90,000 range. The patient was discharged on oral iron for additional supplementation. However she states that this has been making her very nauseous and she has thrown up most of her doses. She was seen for first office visit on 01/28/22. Her clinical course appear to be consistent with GI blood loss, most likely fr om small bowel AVMs, exacerbated by anticoagulant use. 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 However those counts are in a safe range. The patient received 3 doses of IV iron, specifically Feraheme, with the last dose given on 02/18/22. She did have nausea the first 2 doses but did better with dose #3 with premedication. She denied any fever/chills/nausea/vomiting. She states that she has been having black stools. She has noticed progressive shortness of breath with exertion, and some dizziness on standing up. The patient is symptomatically worse since her visit in 01/22. Her hemoglobin today has declined into the 5 range. WBC was 2.8 with ANC 1800, and platelets were greater than 50,000 at 82. The patient has continued on eliquis with her last dose yesterday. She has been having some black stools. - The patient was advised that she has progressive anemia due to blood loss, despite very aggressive IV iron supplementation. The last dose was given on 02/18/22. Typically we would expect to see peak response around this time but instead the patient has had worsening of anemia. - The patient will be sent to the emergency room for admission, blood transfusion and further evaluation. She was advised to continue to hold the anticoagulation for now. and directed to emergency for further evaluation. Her hemoglobin and platelets are trending down, GI has been consulted for GI bleed. Check Fibrinogen, Coags Past Medical History Past Medical History: Atrial Fibrillation, Heart Failure, Diabetes Mellitus, GERD/Reflux, Hyperlipidemia, Hypertension, Liver Disease, Osteoarthritis (OA), Sleep Apnea/CPAP/BIPAP, Thyroid Disorder Additional Past Medical History / Comment(s): Covid pneumonia 09/2021, NIDDM type II, post aortic valve replacement Afib/converted, enlarged fatty liver, DEISI with Cpap, chronic low back pain with spinal stenosis/DDD, CHF with bilateral pleural effusions/bilateral thoracentesis when pt had valve surgery, hypo thyroid, arthritis in multiple joints History of Any Multi-Drug Resistant Organisms: None Reported Past Surgical History: Appendectomy, Cardiac Valve Replacement, Cholecystectomy, Heart Catheterization, Orthopedic Surgery, Tonsillectomy, Tubal Ligation Additional Past Surgical History / Comment(s): TREY, 2019 bioprosthetic aortic valve surgery/clip L atrial appendage/post op bilateral thoracentesis, thyroid removed d/t hyperactivity, r foot bunionectomy. Past Anesthesia/Blood Transfusion Reactions: Postoperative Nausea & Vomiting (PONV) Additional Past Anesthesia/Blood Transfusion Reaction / Comm: no hx blood transfusion Past Psychological History: Depression Smoking Status: Former smoker - Past Family History Mother Family Medical History: CVA/TIA Additional Family Medical History / Comment(s): Mother of a blood clot in her brainstem. Father Family Medical History: Cancer, Congestive Heart Failure (CHF), COPD Additional Family Medical History / Comment(s): colon cancer Medications and Allergies Home Medications Medication Instructions Recorded Confirmed Type Atorvastatin [Lipitor] 40 mg PO HS #30 tab 05/05/19 03/18/22 Rx Levothyroxine Sodium [Synthroid] 137 mcg PO AC-BRKFST 05/21/19 03/18/22 History Cetirizine HCl [Zyrtec] 10 mg PO HS 09/30/21 03/18/22 History metFORMIN HCL [Glucophage] 500 mg PO BID 09/30/21 03/18/22 History Albuterol Sulfate [Proair Hfa] 2 puff INHALATION RT-Q6H PRN 11/05/21 03/18/22 History Metoprolol Tartrate [Lopressor] 25 mg PO DAILY 11/05/21 03/18/22 History Budesonide/Formoterol Fumarate 2 puff INHALATION RT-TID 11/11/21 03/18/22 History [Symbicort 80-4.5 Mcg Inhaler] HYDROcodone/APAP 5-325MG [[place] 1 tab PO Q6H PRN 03/18/22 03/18/22 History 5-325] Ondansetron [Zofran] 4 mg PO Q8H PRN 03/18/22 03/18/22 History Allergies Allergy/AdvReac Type Severity Reaction Status Date / Time Iodinated Contrast Media Allergy Severe Vomiting/ra Verified 03/18/22 14:50 [Iodinated Contrast- Oral sh/itching and IV Dye] latex Allergy Itching/queta Verified 03/18/22 14:50 h adhesive tape Allergy Itching/queta Uncoded 03/18/22 14:50 h Physical Exam Vitals: Vital Signs Temp Pulse Resp BP Pulse Ox 03/18/22 17:35 97.8 F 72 22 129/66 98 03/18/22 17:20 71 15 142/59 98 03/18/22 17:10 71 16 128/62 99 03/18/22 17:05 97.9 F 71 16 151/62 99 03/18/22 17:00 72 15 152/55 99 03/18/22 16:50 98.1 F 75 16 152/63 98 03/18/22 16:40 74 31 H 147/62 99 03/18/22 16:35 97.8 F 75 18 147/62 97 03/18/22 16:30 97.7 F 76 16 144/61 98 03/18/22 16:25 97.6 F 76 20 144/61 98 03/18/22 16:20 98.2 F 84 14 128/54 99 03/18/22 16:19 98.2 F 75 18 128/54 97 03/18/22 16:10 74 13 03/18/22 16:00 74 27 H 100 03/18/22 15:50 75 11 L 100 03/18/22 15:40 77 19 100 03/18/22 15:30 77 7 L 100 03/18/22 15:20 74 12 98 03/18/22 15:10 74 14 100 03/18/22 15:00 77 14 100 03/18/22 14:50 74 15 100 03/18/22 14:42 74 100 03/18/22 14:40 73 10 L 100 03/18/22 14:30 74 17 03/18/22 14:20 74 18 03/18/22 13:50 98.1 F 72 17 99/73 98 03/18/22 12:32 71 18 127/48 98 Intake and Output 03/18/22 03/18/22 03/18/22 06:59 14:59 22:59 Intake Total 0 Balance 0 Intake: Blood Product 0 Unit 0 Other: Weight 104.326 kg - Constitutional General appearance: cooperative, no acute distress - EENT Eyes: EOMI ENT: NA/AT - Neck Neck: normal ROM - Respiratory Respiratory: bilateral: CTA - Cardiovascular Rhythm: regularly irregular - Gastrointestinal General gastrointestinal: soft - Integumentary Integumentary: pale - Musculoskeletal Musculoskeletal: strength equal bilaterally - Psychiatric Psychiatric: A&O x's 3 Results CBC & Chem 7: 03/19/22 08:37 03/19/22 08:37 Labs: Abnormal Lab Results - Last 24 Hours (Table) 03/18/22 03/18/22 03/18/22 Range/Units 12:36 13:15 13:15 WBC 2.4 L (3.8-10.6) k/uL RBC 2.18 L (3.80-5.40) m/uL Hgb 5.5 L* (11.4-16.0) gm/dL Hct 18.3 L* (34.0-46.0) % MCH (25.0-35.0) pg MCHC 29.8 L (31.0-37.0) g/dL RDW 19.2 H (11.5-15.5) % Plt Count 83 L (150-450) k/uL Neutrophils # (1.3-7.7) k/uL Lymphocytes # 0.7 L (1.0-4.8) k/uL PT 13.7 H (9.0-12.0) sec INR 1.3 H (<1.2) Chloride (98-107) mmol/L Glucose (74-99) mg/dL Calcium (8.4-10.2) mg/dL Albumin (3.5-5.0) g/dL Crossmatch See Detail 03/18/22 03/18/22 Range/Units 13:15 14:32 WBC 2.0 L (3.8-10.6) k/uL RBC 2.06 L (3.80-5.40) m/uL Hgb 5.0 L* (11.4-16.0) gm/dL Hct 17.5 L* (34.0-46.0) % MCH 24.2 L (25.0-35.0) pg MCHC 28.4 L (31.0-37.0) g/dL RDW 18.8 H (11.5-15.5) % Plt Count 65 L (150-450) k/uL Neutrophils # 1.1 L (1.3-7.7) k/uL Lymphocytes # 0.6 L (1.0-4.8) k/uL PT (9.0-12.0) sec INR (<1.2) Chloride 110 H (98-107) mmol/L Glucose 122 H (74-99) mg/dL Calcium 8.2 L (8.4-10.2) mg/dL Albumin 2.9 L (3.5-5.0) g/dL Crossmatch Assessment and Plan (1) Acute on chronic anemia Current Visit: Yes Status: Acute Code(s): D64.9 - ANEMIA, UNSPECIFIED SNOM ED Code(s): 785426267 (2) History of ITP Current Visit: Yes Status: Acute Code(s): Z86.2 - PRSNL HISTORY OF DIS OF [facility] BLD[facility] Code(s): 887866727 Plan: Await GI eval Anemia work-up Transfuse hemoglobin less than 7 Iron studies.
[2022-03-19] MEDS: INSULIN ASPART (NovoLOG) 100 UNIT/ML VIAL SQ SCH ×2 (17:25→20:52)
[2022-03-19 18:13] LABS: Glucose,Whole Blood 212 mg/dL (70-110)
[2022-03-19] MEDS: ATORVASTATIN 40 MG TAB PO SCH (20:38)
[2022-03-19 20:48] LABS: Glucose,Whole Blood 137 mg/dL (70-110)
[2022-03-20] MEDS: LEVOTHYROXINE 137 MCG TAB PO SCH (05:42)
[2022-03-20 06:44] LABS: Glucose,Whole Blood 98 mg/dL (70-110)
[2022-03-20] MEDS: INSULIN ASPART (NovoLOG) 100 UNIT/ML VIAL SQ SCH ×4 (07:22→20:41)
[2022-03-20] MEDS: METOPROLOL TARTRATE 25 MG TAB PO SCH (07:38)
[2022-03-20] MEDS: HYDROcodone/APAP 5-325MG 1 EACH TAB PO PRN (07:38)
[2022-03-20] MEDS: PANTOPRAZOLE 40 MG/10 ML VIAL IVP SCH ×2 (07:38→20:12)
[2022-03-20] MEDS ORDERED: SYMBICORT 80-4.5 MCG INHALER INHALATION SCH (08:00)
[2022-03-20 08:53] LABS: HCT 23.5 % (37.2-46.3); HGB 7.1 g/dL (12.0-15.0); MCH 25.5 pg (27.0-32.0); MCHC 30.2 g/dL (32.0-37.0); MCV 84.5 fL (80.0-97.0); Mean Platelet Volume 12.4 fL (9.5-12.2); NRBC Per 100 WBC 0 /100 WBCS (0.0-0.0); Platelet Count 77 X 10*3/uL (140-440); RBC 2.78 X 10*6/uL (4.10-5.20); RDW 18.2 % (11.5-14.5); WBC 3.06 X 10*3/uL (4.50-10.00)
[2022-03-20] MEDS: SYMBICORT 80-4.5 MCG INHALER INHALATION SCH ×2 (09:06→20:02)
[2022-03-20 10:45] LABS: Immature Platelet Fraction 7.6 % (1.1-6.1)
[2022-03-20 11:08] LABS: Glucose,Whole Blood 207 mg/dL (70-110)
[2022-03-20 11:51] VITALS: BMI 37.1
[2022-03-20 16:15] LABS: Glucose,Whole Blood 136 mg/dL (70-110)
[2022-03-20] MEDS: ATORVASTATIN 40 MG TAB PO SCH (20:12)
[2022-03-20 20:32] LABS: Glucose,Whole Blood 159 mg/dL (70-110)
[2022-03-21] MEDS: LEVOTHYROXINE 137 MCG TAB PO SCH (05:50)
[2022-03-21 07:05] LABS: Glucose,Whole Blood 141 mg/dL (70-110)
[2022-03-21] MEDS: SYMBICORT 80-4.5 MCG INHALER INHALATION SCH ×2 (08:02→20:10)
[2022-03-21] MEDS: PANTOPRAZOLE 40 MG/10 ML VIAL IVP SCH ×2 (09:06→19:54)
[2022-03-21] MEDS: INSULIN ASPART (NovoLOG) 100 UNIT/ML VIAL SQ SCH ×4 (09:17→21:31)
[2022-03-21] MEDS: METOPROLOL TARTRATE 25 MG TAB PO SCH (09:18)
[2022-03-21 12:03] LABS: Glucose,Whole Blood 150 mg/dL (70-110)
[2022-03-21 12:50] LABS: Anisocytosis Slight; Basophils % (A) 1 %; Eosinophils % (A) 2 %; HCT 23.3 % (34.0-46.0); HGB 7.3 gm/dL (11.4-16.0); Hypochromasia Marked; Lymphocytes # (A) 0.6 k/uL (1.0-4.8); Lymphocytes % (A) 28 %; MCH 26.8 pg (25.0-35.0); MCHC 31.3 g/dL (31.0-37.0); MCV 85.8 fL (80.0-100.0); Mean Platelet Volume 11.4; Monocytes # (A) 0.1 k/uL (0-1.0); Monocytes % (A) 7 %; Neutrophils # (A) 1.3 k/uL (1.3-7.7); Neutrophils % (A) 61 %; Poikilocytosis Moderate; RBC 2.72 m/uL (3.80-5.40); RDW 18.3 % (11.5-15.5); WBC 2.1 k/uL (3.8-10.6)
[2022-03-21 12:58] LABS: Platelet Count 74 k/uL (150-450)
[2022-03-21] MEDS: SODIUM FERRIC GLUCONAT-SUCROSE 125 MG in SODIUM CHLORIDE 0.9% 100 ML IVPB SCH (16:17)
[2022-03-21 17:16] LABS: Glucose,Whole Blood 115 mg/dL (70-110)
[2022-03-21] MEDS ORDERED: ONDANSETRON 4 MG TAB PO PRN (18:30)
[2022-03-21] MEDS: ATORVASTATIN 40 MG TAB PO SCH (19:54)
[2022-03-21] MEDS: metFORMIN 500 MG TAB PO SCH (19:54)
[2022-03-21] MEDS ORDERED: QUEtiapine 100 MG TAB PO SCH (21:00)
[2022-03-21] MEDS ORDERED: LORATADINE 10 MG TAB PO SCH (21:00)
[2022-03-21] MEDS ORDERED: CYCLOBENZAPRINE 10 MG TAB PO SCH (21:00)
[2022-03-21 21:32] LABS: Glucose,Whole Blood 142 mg/dL (70-110)
--- NOTE | 2022-03-22 01:39 | P.PN ---
Subjective Progress Note Date: 03/20/22 Presents to ER from Dr. Alegria's office due to low hemoglobin level. Patient has been feeling generalized weakness and fatigue and felt heaviness in the legs and short of breath which is worsening for the past 1 month. Denied any chest pain. No palpitations. No nausea vomiting. No hematemesis.. Patient does states that she has been having dark stools. 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 Patient underwent lumbar spinal stenosis on 11/12/2021. Patient had EGD in November 2021. EGD showed mild antral gastritis but no evidence of peptic ulcer disease. Colonoscopy revealed 5 mm transverse colon polyp status post cold biopsy and rest of the colon appears normal. Patient also had small bowel capsule endoscopy as well. Duodenal biopsy showed mild intraepithelial lymphocytosis with preserved villous architecture. Correlate with celiac disease serology studies is suggested. Patient recently had ultrasound of liver showed heterogeneous hypertrophic appearance of the liver consistent with known hepatocellular disease. Her cirrhosis is redemonstrated. 03/19/2022 Patient is seen in follow-up with morning continues to be a hold in the ER. Patient has been evaluated by GI and is undergoing EGD this afternoon with Dr. Figueroa. Patient hemoglobin is 7.0 this morning and iron studies in process and Dr. Alegria hematology consulted. Patient has been following with hematology in the outpatient setting as patient recently had anemia workup initiated. Recommend continue holding any anticoagulation at this time. Plan is to give 1 unit of PRBCs. Patient normally takes oral diabetic agents and will continue a sliding scale for now as patient is nothing by mouth. Recommend IV Protonix. Patient having some generalized abdominal pain and lower back pain will resume home medication. Patient is afebrile and denies 03/20/2022 Patient is currently sitting in the chair comfortably. Awake alert and oriented x3. No complaints of chest pain or abdominal pain. No nausea or vomiting. Denied any dark-colored stool. Hemoglobin level at 7.1 today. Patient was started on liquid diet and advance as tolerated. Patient is being continued on IV Protonix. Status post EGD showed mild gastric antral vascular ectasia with some areas of oozing that is post argon plasma coagulation. Continue to monitor H&H. Eliquis is on hold. Review of systems: Constitutional: No reports of fatigue, fever, or chills Cardiovascular: No reports of chest pain or palpitations Respiratory: No reports of shortness of breath or cough GI: No reports of nausea, vomiting, or diarrhea, reports no further bleeding per rectum or emesis : No reports of dysuria or retention Neurovascular: reports of generalized weakness All medications have been reviewed Objective - Vital Signs Vital signs: Vital Signs Temp 98.2 F 03/20/22 12:00 Pulse 64 03/20/22 12:00 Resp 18 03/20/22 12:00 BP 131/68 03/20/22 12:00 Pulse Ox 98 03/20/22 12:00 FiO2 Intake & Output 03/19/22 03/20/22 03/20/22 18:59 06:59 18:59 Intake Total 480 400 Balance 480 400 Weight 241.1 kg 104.326 kg Intake: IV 200 Oral 400 Blood Product 280 Rc Pheresis 2 As3 Unit 280 [id number] Other: # Voids 3 3 - Exam PHYSICAL EXAMINATION: Patient is lying in the bed comfortably, no acute distress, awake alert and oriented.. HEENT: Normocephalic. Neck is supple. Pupils reactive. Nostrils clear. Oral cavity is moist. Neck reveals no JVD, carotid bruits, or thyromegaly. CHEST EXAMINATION: Trachea is central. Symmetrical expansion. Lung mathur clear to auscultation and percussion. CARDIAC: Normal S1, S2 with no gallops. No murmurs ABDOMEN: Soft. Bowel sounds present. Nontender. No organomegaly. No abdominal bruits. Extremities: reveal no edema. No clubbing or cyanosis Neurologically awake, alert, oriented x3 with well-coordinated movements. No focal deficits noted Skin: No rash or skin lesions. Psychiatric: Coperative. Nonsuicidal, anxious. Musculoskeletal: No joint swelling or deformity. Normal range of motion. - Labs CBC & Chem 7: 03/21/22 12:11 03/19/22 08:37 Labs: Abnormal Lab Results - Last 24 Hours (Table) 03/18/22 03/19/22 03/19/22 Range/Units 12:36 18:12 20:46 WBC (4.50-10.00) X 10*3/uL RBC (4.10-5.20) X 10*6/uL Hgb (12.0-15.0) g/dL Hct (37.2-46.3) % MCH (27.0-32.0) pg MCHC (32.0-37.0) g/dL RDW (11.5-14.5) % Plt Count (140-440) X 10*3/uL MPV (9.5-12.2) fL Immature Plt Fraction (1.1-6.1) % POC Glucose (mg/dL) 212 H 137 H (70-110) mg/dL Crossmatch See Detail 03/20/22 03/20/22 03/20/22 Range/Units 05:54 11:07 16:13 WBC 3.06 L (4.50-10.00) X 10*3/uL RBC 2.78 L (4.10-5.20) X 10*6/uL Hgb 7.1 L (12.0-15.0) g/dL Hct 23.5 L (37.2-46.3) % MCH 25.5 L (27.0-32.0) pg MCHC 30.2 L (32.0-37.0) g/dL RDW 18.2 H (11.5-14.5) % Plt Count 77 L (140-440) X 10*3/uL MPV 12.4 H (9.5-12.2) fL Immature Plt Fraction 7.6 H (1.1-6.1) % POC Glucose (mg/dL) 207 H 136 H (70-110) mg/dL Crossmatch Assessment and Plan Assessment: Acute on chronic blood loss anemia. 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 hold Eliquis for 2 days. GI is on board Symptomatic anemia Acute GI bleed with dark-colored stools. Patient had recent work-up including EGD, colonoscopy and small bowel endoscopy Recent duodenal biopsies showed correlate for celiac disease. Hypertension Hyperlipidemia Osteoarthritis Obstructive sleep apnea on CPAP at home Hypothyroidism Chronic low back pain with recent lumbar fusion surgery in November 2021 History of bioprosthetic aortic valve surgery. Was on anticoagulation with Paroxysmal atrial fibrillation Depression History of smoking Plan: Patient be current gentle IV hydration and started on PPI IV twice daily. s/p EGD Monitor H&H. Anticoagulation is on hold. Iron supplements Current home medications and pain management. Follow-up closely. Time with Patient: Greater than 30
--- NOTE | 2022-03-22 01:46 | P.PN ---
Subjective Progress Note Date: 03/21/22 Presents to ER from Dr. Alegria's office due to low hemoglobin level. Patient has been feeling generalized weakness and fatigue and felt heaviness in the legs and short of breath which is worsening for the past 1 month. Denied any chest pain. No palpitations. No nausea vomiting. No hematemesis.. Patient does states that she has been having dark stools. 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 Patient underwent lumbar spinal stenosis on 11/12/2021. Patient had EGD in November 2021. EGD showed mild antral gastritis but no evidence of peptic ulcer disease. Colonoscopy revealed 5 mm transverse colon polyp status post cold biopsy and rest of the colon appears normal. Patient also had small bowel capsule endoscopy as well. Duodenal biopsy showed mild intraepithelial lymphocytosis with preserved villous architecture. Correlate with celiac disease serology studies is suggested. Patient recently had ultrasound of liver showed heterogeneous hypertrophic appearance of the liver consistent with known hepatocellular disease. Her cirrhosis is redemonstrated. 03/19/2022 Patient is seen in follow-up with morning continues to be a hold in the ER. Patient has been evaluated by GI and is undergoing EGD this afternoon with Dr. Figueroa. Patient hemoglobin is 7.0 this morning and iron studies in process and Dr. Alegria hematology consulted. Patient has been following with hematology in the outpatient setting as patient recently had anemia workup initiated. Recommend continue holding any anticoagulation at this time. Plan is to give 1 unit of PRBCs. Patient normally takes oral diabetic agents and will continue a sliding scale for now as patient is nothing by mouth. Recommend IV Protonix. Patient having some generalized abdominal pain and lower back pain will resume home medication. Patient is afebrile and denies 03/20/2022 Patient is currently sitting in the chair comfortably. Awake alert and oriented x3. No complaints of chest pain or abdominal pain. No nausea or vomiting. Denied any dark-colored stool. Hemoglobin level at 7.1 today. Patient was started on liquid diet and advance as tolerated. Patient is being continued on IV Protonix. Status post EGD showed mild gastric antral vascular ectasia with some areas of oozing that is post argon plasma coagulation. Continue to monitor H&H. Pat is on hold. 03/21/2022 Patient is currently sitting in recliner. Awake alert oriented x3. Diet advanced to regular diet. No complaints of abdominal pain. Hemoglobin is improving to 7.3 today. Patient is getting IV infusions. No complaints of hematemesis or melena. No headache or dizziness or lightheadedness. Patient will be started back on anticoagulation tomorrow. Anticipate discharge in the next 24 hours. Patient will be continued on PPI. Patient states that she is scheduled for cataract surgery on 03/25/2022. No other acute overnight issues. Review of systems: Constitutional: No reports of fatigue, fever, or chills Cardiovascular: No reports of chest pain or palpitations Respiratory: No reports of shortness of breath or cough GI: No reports of nausea, vomiting, or diarrhea, reports no further bleeding per rectum or emesis : No reports of dysuria or retention Neurovascular: reports of generalized weakness All medications have been reviewed Objective - Vital Signs Vital signs: Vital Signs Temp 98.6 F 03/21/22 14:00 Pulse 58 L 03/21/22 14:00 Resp 18 03/21/22 14:00 BP 133/67 03/21/22 14:00 Pulse Ox 98 03/21/22 14:00 FiO2 Intake & Output 03/21/22 03/21/22 03/22/22 06:59 18:59 06:59 Intake Total 100 Balance 100 Intake: Intake, IV Titration 100 Amount Sodium Ferric Gluconat- 100 Sucrose 125 mg In Sodium Chloride 0.9% 100 ml @ 100 mls/hr IVPB DAILY [facility] Rx#:[id number] Other: Voiding Method Toilet # Voids 2 6 # Bowel Movements 1 - Exam PHYSICAL EXAMINATION: Patient is lying in the bed comfortably, no acute distress, awake alert and oriented.. HEENT: Normocephalic. Neck is supple. Pupils reactive. Nostrils clear. Oral cavity is moist. Neck reveals no JVD, carotid bruits, or thyromegaly. CHEST EXAMINATION: Trachea is central. Symmetrical expansion. Lung mathur clear to auscultation and percussion. CARDIAC: Normal S1, S2 with no gallops. No murmurs ABDOMEN: Soft. Bowel sounds present. Nontender. No organomegaly. No abdominal bruits. Extremities: reveal no edema. No clubbing or cyanosis Neurologically awake, alert, oriented x3 with well-coordinated movements. No focal deficits noted Skin: No rash or skin lesions. Psychiatric: Coperative. Nonsuicidal, anxious. Musculoskeletal: No joint swelling or deformity. Normal range of motion. - Labs CBC & Chem 7: 03/21/22 12:11 03/19/22 08:37 Labs: Abnormal Lab Results - Last 24 Hours (Table) 03/21/22 03/21/22 03/21/22 Range/Units 07:04 11:57 12:11 WBC 2.1 L (3.8-10.6) k/uL RBC 2.72 L (3.80-5.40) m/uL Hgb 7.3 L (11.4-16.0) gm/dL Hct 23.3 L (34.0-46.0) % RDW 18.3 H (11.5-15.5) % Plt Count 74 L (150-450) k/uL Lymphocytes # 0.6 L (1.0-4.8) k/uL POC Glucose (mg/dL) 141 H 150 H (70-110) mg/dL 03/21/22 03/21/22 Range/Units 17:15 21:31 WBC (3.8-10.6) k/uL RBC (3.80-5.40) m/uL Hgb (11.4-16.0) gm/dL Hct (34.0-46.0) % RDW (11.5-15.5) % Plt Count (150-450) k/uL Lymphocytes # (1.0-4.8) k/uL POC Glucose (mg/dL) 115 H 142 H (70-110) mg/dL Assessment and Plan Assessment: Acute on chronic blood loss anemia. 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 hold Eliquis for 2 days. GI is on board Symptomatic anemia Acute GI bleed with dark-colored stools. Patient had recent work-up including EGD, colonoscopy and small bowel endoscopy Recent duodenal biopsies showed correlate for celiac disease. Hypertension Hyperlipidemia Osteoarthritis Obstructive sleep apnea on CPAP at home Hypothyroidism Chronic low back pain with recent lumbar fusion surgery in November 2021 History of bioprosthetic aortic valve surgery. Was on anticoagulation with Paroxysmal atrial fibrillation Depression History of smoking Plan: Patient be current gentle IV hydration and started on PPI IV twice daily. s/p EGD Monitor H&H. Anticoagulation is on hold. Iron supplements Current home medications and pain management. Follow-up closely. Time with Patient: Greater than 30
[2022-03-22] MEDS: LEVOTHYROXINE 137 MCG TAB PO SCH (06:20)
[2022-03-22 06:56] LABS: Glucose,Whole Blood 106 mg/dL (70-110)
[2022-03-22] MEDS: INSULIN ASPART (NovoLOG) 100 UNIT/ML VIAL SQ SCH ×2 (07:13→12:13)
[2022-03-22] MEDS: PANTOPRAZOLE 40 MG/10 ML VIAL IVP SCH (08:16)
[2022-03-22] MEDS: SYMBICORT 80-4.5 MCG INHALER INHALATION SCH (08:20)
[2022-03-22] MEDS: ALBUTEROL NEBULIZED 2.5 MG/3 ML INHALATION PRN (08:20)
[2022-03-22] MEDS: metFORMIN 500 MG TAB PO SCH (08:37)
[2022-03-22] MEDS: METOPROLOL TARTRATE 25 MG TAB PO SCH (08:37)
[2022-03-22] MEDS: SODIUM FERRIC GLUCONAT-SUCROSE 125 MG in SODIUM CHLORIDE 0.9% 100 ML IVPB SCH (08:38)
[2022-03-22] MEDS ORDERED: CITALOPRAM HYDROBROMIDE 20 MG TAB PO SCH (09:00)
[2022-03-22 09:02] LABS: African American GFR (CKD) 106.9 (60.0-200.0); Anion Gap 8.5 mmol/L (10.00-18.00); BUN/Creat Ratio 13.29 Ratio (12.00-20.00); Blood Urea Nitrogen 9.3 mg/dL (9.0-27.0); Calcium 8.6 mg/dL (8.7-10.3); Carbon Dioxide 22.5 mmol/L (20.0-27.5); Non-African American GFR(CKD) 92.2 (60.0-200.0)
[2022-03-22 09:22] LABS: Basophils # (A) 0.02 X 10*3/uL (0.00-0.10); Basophils % (A) 0.9 %; Eosinophils # (A) 0.04 X 10*3/uL (0.04-0.35); Eosinophils % (A) 1.9 %; Immature Grans, Automated 0 %; Immature Platelet Fraction 7.4 % (1.1-6.1); Lymphocytes % (A) 37.6 %; MCH 25.4 pg (27.0-32.0); MCHC 29.2 g/dL (32.0-37.0); Monocytes # (A) 0.14 X 10*3/uL (0.20-1.00); Monocytes % (A) 6.6 %; NRBC Per 100 WBC 0 /100 WBCS (0.0-0.0); Neutrophils # (A) 1.13 X 10*3/uL (1.80-7.70); Platelet Count 68 X 10*3/uL (140-440); RBC 2.76 X 10*6/uL (4.10-5.20); WBC 2.13 X 10*3/uL (4.50-10.00)
--- NOTE | 2022-03-22 10:16 | P.PN ---
Subjective Progress Note Date: 03/22/22 Principal diagnosis: iron def anemia thrombocytopenia hemoglobin 7, parental iron x3-5 days Objective - Vital Signs Vital signs: Vital Signs Temp 98.4 F 03/22/22 08:00 Pulse 80 03/22/22 08:30 Resp 16 03/22/22 08:30 BP 105/56 03/22/22 08:00 Pulse Ox 100 03/22/22 08:20 FiO2 Intake & Output 03/21/22 03/22/22 03/22/22 18:59 06:59 18:59 Intake Total 100 Balance 100 Intake: Intake, IV Titration 100 Amount Sodium Ferric Gluconat- 100 Sucrose 125 mg In Sodium Chloride 0.9% 100 ml @ 100 mls/hr IVPB DAILY [facility] Rx#:[id number] Other: Voiding Method Toilet # Voids 6 # Bowel Movements 1 - Exam - Constitutional General appearance: cooperative, no acute distress - EENT Eyes: EOMI ENT: NA/AT - Neck Neck: normal ROM - Respiratory Respiratory: bilateral: CTA - Cardiovascular Rhythm: regularly irregular - Gastrointestinal General gastrointestinal: soft - Integumentary Integumentary: pale - Musculoskeletal Musculoskeletal: strength equal bilaterally - Psychiatric Psychiatric: A&O x's 3 - Labs CBC & Chem 7: 03/22/22 04:56 03/22/22 04:56 Labs: Abnormal Lab Results - Last 24 Hours (Table) 03/21/22 03/21/22 03/21/22 Range/Units 11:57 12:11 17:15 WBC 2.1 L (3.8-10.6) k/uL RBC 2.72 L (3.80-5.40) m/uL Hgb 7.3 L (11.4-16.0) gm/dL Hct 23.3 L (34.0-46.0) % MCH (27.0-32.0) pg MCHC (32.0-37.0) g/dL RDW 18.3 H (11.5-15.5) % Plt Count 74 L (150-450) k/uL Neutrophils # (1.80-7.70) X 10*3/uL Lymphocytes # 0.6 L (1.0-4.8) k/uL Monocytes # (0.20-1.00) X 10*3/uL Immature Plt Fraction (1.1-6.1) % Anion Gap (10.00-18.00) mmol/L POC Glucose (mg/dL) 150 H 115 H (70-110) mg/dL Calcium (8.7-10.3) mg/dL 03/21/22 03/22/22 03/22/22 Range/Units 21:31 04:56 04:56 WBC 2.13 L (3.8-10.6) k/uL RBC 2.76 L (3.80-5.40) m/uL Hgb 7.0 L (11.4-16.0) gm/dL Hct 24.0 L (34.0-46.0) % MCH 25.4 L (27.0-32.0) pg MCHC 29.2 L (32.0-37.0) g/dL RDW 19.0 H (11.5-15.5) % Plt Count 68 L (150-450) k/uL Neutrophils # 1.13 L (1.80-7.70) X 10*3/uL Lymphocytes # 0.80 L (1.0-4.8) k/uL Monocytes # 0.14 L (0.20-1.00) X 10*3/uL Immature Plt Fraction 7.4 H (1.1-6.1) % Anion Gap 8.50 L (10.00-18.00) mmol/L POC Glucose (mg/dL) 142 H (70-110) mg/dL Calcium 8.6 L (8.7-10.3) mg/dL Assessment and Plan (1) Acute on chronic anemia Current Visit: Yes Status: Acute Code(s): D64.9 - ANEMIA, UNSPECIFIED SNOMED Code(s): 652438338 (2) History of ITP Current Visit: Yes Status: Acute Code(s): Z86.2 - PRSNL HISTORY OF [facility] Code(s): 247977730 Plan: Status post GI eval, evidence bleed Anemia work-up Transfuse hemoglobin less than 7 Iron studies confirmed parental ironx5 days
[2022-03-22 11:19] LABS: Glucose,Whole Blood 155 mg/dL (70-110)
[2022-03-22] MEDS ORDERED: FUROSEMIDE 10 MG/ML 2 ML VIAL IV ONE (11:59)
[2022-03-22 14:37] VITALS: RESP 18
[2022-03-22 16:29] LABS: Glucose,Whole Blood 147 mg/dL (70-110)
[2022-03-22 16:33] VITALS: BP 109/64; PULSE 73; TEMP 98.2
--- NOTE | 2022-03-23 09:47 | P.DS ---
Providers Date of admission: 03/18/22 14:17 Expected date of discharge: 03/22/22 Attending physician: Mel Valencia Consults: 03/18/22 14:17 Consult Physician Urgent Consulting Provider: Juan Alegria Consult Reason/Comments: Anemia Do you want consulting provider notified?: Yes Consult Physician Urgent Consulting Provider: Bibiana Figueroa Consult Reason/Comments: gi bleed Do you want consulting provider notified?: Yes Primary care physician: Physician Nonstaff Hospital Course: Final diagnosis Acute on chronic blood loss anemia. 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 Symptomatic anemia Acute GI bleed with dark-colored stools. Patient had recent work-up including EGD, colonoscopy and small bowel endoscopy Recent duodenal biopsies showed correlate for celiac disease. Hypertension Hyperlipidemia Osteoarthritis Obstructive sleep apnea on CPAP at home Hypothyroidism Chronic low back pain with recent lumbar fusion surgery in November 2021 History of bioprosthetic aortic valve surgery. Paroxysmal atrial fibrillation Depression History of smoking Discharge disposition Patient is being discharged in a stable condition with guarded prognosis to home. Patient will follow-up with Dr. Wood in the outpatient setting upon discharge. Patient is to follow-up with hematology Dr. Alegria in 1-2 days. Patient to continue on iron supplementation and will most likely require iron transfusions as she has been receiving previously. Total time taken is greater than 35 minutes. Hospital course This is a 61-year-old female who was recently admitted with generalized weakness and fatigue and also worsening shortness of breath and found to have dark stools and hemoglobin of 5.5 requiring transfusion. Patient was at hematology office and had low blood count, sent here for further evaluation patient was seen and evaluated by GI underwent EGD which showed mild gastric antral vascular ectasia with some areas of oozing and status post argon plasma coagulation. Recommend holding oral anticoagulant for the next 2 days. Discussed with the patient and will continue to hold anticoagulants until follow-up with hematology. Patient is to follow-up with Dr. Alegria in 1-2 days. Recommend repeat labs in the outpatient setting. Hemoglobin was 7 this morning and will give a unit prior to discharge. Currently no reports of chest pain, shortness of breath, or palpitations. Patient is afebrile. No reports of nausea or vomiting and patient is tolerating diet. Patient will be discharged home today. Guarded p rognosis. On exam vital signs are stable. Cardio S1, S2 are muffled. Respiratory system shows diminished breath sounds at the bases with no wheezing or rhonchi noted. Abdomen is soft and obese, and nontender. Nervous system shows no focal deficit. Please refer to medication reconciliation sheet for a list of medications. The impression and plan of care has been dictated by Mouna Kaiser, Nurse Practitioner as directed. Dr. Erik MD I have performed a history and examination and MDM of this patient, discussed the same with the dictator, and agree with the dictator's assessment and plan as written ,documented as a scribe. Based on total visit time, I have performed more than 50% of the visit. Patient Condition at Discharge: Fair Plan - Discharge Summary New Discharge Prescriptions: New Ferrous Sulfate [Iron] 325 mg PO DAILY 30 Days #30 tablet Continue Atorvastatin [Lipitor] 40 mg PO HS #30 tab Levothyroxine Sodium [Synthroid] 137 mcg PO AC-BRKFST metFORMIN HCL [Glucophage] 500 mg PO BID Cetirizine HCl [Zyrtec] 10 mg PO HS Albuterol Sulfate [Proair Hfa] 2 puff INHALATION RT-Q6H PRN PRN Reason: Shortness Of Breath Budesonide/Formoterol Fumarate [Symbicort 80-4.5 Mcg Inhaler] 2 puff INHALATION RT-TID HYDROcodone/APAP 5-325MG [Jackson 5-325] 1 tab PO Q6H PRN PRN Reason: Pain Cyclobenzaprine [Flexeril] 10 mg PO HS QUEtiapine [SEROquel] 100 mg PO HS Citalopram Hydrobromide [CeleXA] 40 mg PO DAILY Metoprolol Tartrate [Lopressor] 25 mg PO DAILY Ondansetron [Zofran] 4 mg PO Q8H PRN PRN Reason: Nausea Discharge Medication List Atorvastatin [Lipitor] 40 mg PO HS #30 tab 05/05/19 [Rx] Levothyroxine Sodium [Synthroid] 137 mcg PO AC-BRKFST 05/21/19 [History] Cetirizine HCl [Zyrtec] 10 mg PO HS 09/30/21 [History] metFORMIN HCL [Glucophage] 500 mg PO BID 09/30/21 [History] Albuterol Sulfate [Proair Hfa] 2 puff INHALATION RT-Q6H PRN 11/05/21 [History] Metoprolol Tartrate [Lopressor] 25 mg PO DAILY 11/05/21 [History] Budesonide/Formoterol Fumarate [Symbicort 80-4.5 Mcg Inhaler] 2 puff INHALATION RT-TID 11/11/21 [History] HYDROcodone/APAP 5-325MG [Jackson 5-325] 1 tab PO Q6H PRN 03/18/22 [History] Ondansetron [Zofran] 4 mg PO Q8H PRN 03/18/22 [History] Citalopram Hydrobromide [CeleXA] 40 mg PO DAILY 03/21/22 [History] Cyclobenzaprine [Flexeril] 10 mg PO HS 03/21/22 [History] QUEtiapine [SEROquel] 100 mg PO HS 03/21/22 [History] Ferrous Sulfate [Iron] 325 mg PO DAILY 30 Days #30 tablet 03/22/22 [Rx] Follow up Appointment(s)/Referral(s): Juan Alegria MD [STAFF PHYSICIAN] - 1-2 Days (office not answering. please call to schedule appointment) Nonstaff,Physician [Primary Care Provider] - 1-2 days Ambulatory/Diagnostic Orders: Complete Blood Count w/diff [LAB.AMB] Time Frame: 2 Days, Location: None Selected Patient Instructions/Handouts: Anemia (DC) Activity/Diet/Wound Care/Special Instructions: Activity Limited until follow-up Follow-up with primary care provider on discharge Follow-up with hematology in the next 2-3 days and recommend repeat labs of CBC Continue holding anticoagulant until hematology follow-up Continue taking iron supplement daily with a meal to minimize nausea Recommend repeat labs in 2 days to monitor hemoglobin Continue heart healthy consistent carb diet Discharge Disposition: HOME SELF-CARE
== END 2022-03-22 17:17 | disposition home or self-care (01) | DRG 378 ==
LOC: EC 12:29 → 3SCARD 14:17 → 5NMEDONC 03-19 00:48 → 4SSUR 03-19 12:45
PROVIDERS: ADMIT Hospitalist; ATTEND Hospitalist
PROC: 30233N1 Transfusion of Nonautologous Red Blood Cells into Peripheral Vein, Percutaneous Approach (ICD-10-PCS; 2022-03-18)
PROC: 0W3P8ZZ Control Bleeding in Gastrointestinal Tract, Via Natural or Artificial Opening Endoscopic (ICD-10-PCS; principal; 2022-03-19 07:45)
DX: K31.811 Angiodysplasia of stomach and duodenum with bleeding (principal); D62 Acute posthemorrhagic anemia; D61.818 Other pancytopenia; D72.820 Lymphocytosis (symptomatic); E03.9 Hypothyroidism, unspecified; E11.9 Type 2 diabetes mellitus without complications; E78.5 Hyperlipidemia, unspecified; I48.0 Paroxysmal atrial fibrillation; G47.33 Obstructive sleep apnea (adult) (pediatric); K29.70 Gastritis, unspecified, without bleeding; K63.5 Polyp of colon; K74.60 Unspecified cirrhosis of liver; K75.81 Nonalcoholic steatohepatitis (NASH); M19.90 Unspecified osteoarthritis, unspecified site; Z79.01 Long term (current) use of anticoagulants; Z79.51 Long term (current) use of inhaled steroids; Z79.84 Long term (current) use of oral hypoglycemic drugs; Z79.890 Hormone replacement therapy; Z79.899 Other long term (current) drug therapy; Z80.0 Family history of malignant neoplasm of digestive organs; Z82.3 Family history of stroke; Z82.49 Family history of ischemic heart disease and other diseases of the circulatory system; Z82.5 Family history of asthma and other chronic lower respiratory diseases; Z86.16 Personal history of COVID-19; Z87.01 Personal history of pneumonia (recurrent); Z86.2 Personal history of diseases of the blood and blood-forming organs and certain disorders involving the immune mechanism; Z87.19 Personal history of other diseases of the digestive system; Z87.891 Personal history of nicotine dependence; Z95.3 Presence of xenogenic heart valve; Z98.1 Arthrodesis status; F32.9 Major depressive disorder, single episode, unspecified
CPT/HCPCS: 36415; 43270; 80048; 80053; 82607; 82728; 82746; 83516; 83540; 83550; 83735; 84484; 85025; 85027; 85384; 85610; 85730; 86850; 86900; 86901; 86920; 94640; 94760; 96361; 96374; 96376; 99285

== ENCOUNTER → 2022-05-12 | Outpatient (CLI) | payer OTHER ==
[2022-05-12 18:39] LABS: Basophils # (A) 0.03 X 10*3/uL (0.00-0.10); Basophils % (A) 1.1 %; Eosinophils # (A) 0.07 X 10*3/uL (0.04-0.35); Eosinophils % (A) 2.5 %; HCT 36.6 % (37.2-46.3); HGB 11.5 g/dL (12.0-15.0); Immature Grans, Automated 0.4 %; Immature Platelet Fraction 3.1 % (1.1-6.1); Lymphocytes # (A) 0.83 X 10*3/uL (0.90-5.00); MCH 27.8 pg (27.0-32.0); MCHC 31.4 g/dL (32.0-37.0); MCV 88.6 fL (80.0-97.0); Mean Platelet Volume 11.3 fL (9.5-12.2); Monocytes # (A) 0.17 X 10*3/uL (0.20-1.00); Monocytes % (A) 6.1 %; NRBC Per 100 WBC 0 /100 WBCS (0.0-0.0); Neutrophils # (A) 1.66 X 10*3/uL (1.80-7.70); Neutrophils % (A) 59.9 %; Platelet Count 71 X 10*3/uL (140-440); RBC 4.13 X 10*6/uL (4.10-5.20); RBC Morphology NORMAL; RDW 18.1 % (11.5-14.5); WBC 2.77 X 10*3/uL (4.50-10.00)
[2022-05-12 19:27] LABS: % Iron Saturation 16.42 (12.00-45.00); Ferritin 57.9 ng/mL (10.0-291.0)
== END | disposition home or self-care (01) ==
LOC: LABWHC1 11:27
PROVIDERS: ATTEND Internal Medicine Hematology & Oncology
DX: I12.9 Hypertensive chronic kidney disease with stage 1 through stage 4 chronic kidney disease, or unspecified chronic kidney disease (principal); E11.22 Type 2 diabetes mellitus with diabetic chronic kidney disease; D50.9 Iron deficiency anemia, unspecified; N18.9 Chronic kidney disease, unspecified
CPT/HCPCS: 36415; 82728; 83540; 83550; 84466; 85025

== ENCOUNTER → 2022-06-23 | Outpatient (CLI) | payer OTHER ==
[2022-06-23 19:44] LABS: % Iron Saturation 32.38 (12.00-45.00); African American GFR (CKD) 108.5 (60.0-200.0); Anion Gap 11.4 mmol/L (10.00-18.00); BUN/Creat Ratio 21.71 Ratio (12.00-20.00); Blood Urea Nitrogen 14.5 mg/dL (9.0-27.0); Carbon Dioxide 21.7 mmol/L (20.0-27.5); Non-African American GFR(CKD) 93.6 (60.0-200.0); Potassium 4.2 mmol/L (3.5-5.5)
== END | disposition home or self-care (01) ==
LOC: LABWHC1 11:40
PROVIDERS: ATTEND Internal Medicine Hematology & Oncology
DX: N18.9 Chronic kidney disease, unspecified (principal); D50.9 Iron deficiency anemia, unspecified; E11.9 Type 2 diabetes mellitus without complications; I10 Essential (primary) hypertension
CPT/HCPCS: 36415; 80048; 82728; 83540; 83550

== ENCOUNTER → 2022-08-09 | Outpatient (CLI) | payer OTHER ==
[2022-08-09 18:29] LABS: % Iron Saturation 34.71 (12.00-45.00)
[2022-08-09 19:37] LABS: Basophils # (A) 0.03 X 10*3/uL (0.00-0.10); Eosinophils # (A) 0.07 X 10*3/uL (0.04-0.35); Eosinophils % (A) 2.3 %; HCT 33.8 % (37.2-46.3); Immature Grans, Automated 0.3 %; Immature Platelet Fraction 4.1 % (1.1-6.1); Lymphocytes # (A) 0.84 X 10*3/uL (0.90-5.00); Lymphocytes % (A) 28.1 %; MCH 32.1 pg (27.0-32.0); MCHC 32.5 g/dL (32.0-37.0); MCV 98.5 fL (80.0-97.0); Mean Platelet Volume 11.4 fL (9.5-12.2); Monocytes # (A) 0.18 X 10*3/uL (0.20-1.00); NRBC Per 100 WBC 0 /100 WBCS (0.0-0.0); Neutrophils # (A) 1.86 X 10*3/uL (1.80-7.70); Neutrophils % (A) 62.3 %; Platelet Count 67 X 10*3/uL (140-440); RBC 3.43 X 10*6/uL (4.10-5.20); RBC Morphology NORMAL; RDW 14.6 % (11.5-14.5); WBC 2.99 X 10*3/uL (4.50-10.00)
== END | disposition home or self-care (01) ==
LOC: LABWHC1 10:33
PROVIDERS: ATTEND Internal Medicine Hematology & Oncology
DX: I12.9 Hypertensive chronic kidney disease with stage 1 through stage 4 chronic kidney disease, or unspecified chronic kidney disease (principal); E11.22 Type 2 diabetes mellitus with diabetic chronic kidney disease; D50.9 Iron deficiency anemia, unspecified; N18.9 Chronic kidney disease, unspecified
CPT/HCPCS: 36415; 82728; 83540; 83550; 85025

== ENCOUNTER 2022-09-30 19:45 | Inpatient (IN) | payer OTHER ==
--- NOTE | 2022-09-30 20:58 | ED ---
General Adult HPI - General Chief complaint: Shortness of Breath Stated complaint: SOB Time Seen by Provider: 09/30/22 20:18 Source: patient Mode of arrival: EMS Limitations: no limitations - History of Present Illness Initial comments: Dictation was produced using [employer] dictation software. please excuse any grammatical, word or spelling errors. Chief Complaint: 61-year-old female presents to the emergency Department with shortness of breath History of Present Illness: 61-year-old female presents emergency department for 2 days of respiratory infectious symptoms. Patient claims of shortness of breath, cough. No obvious sick exposures. Patient is a poor historian. Patient has multiple comorbidities. Patient was exposed to her granddaughter over the holidays was having respiratory infectious symptoms. Patient reports t hat her daughter was tested and her results were negative. Patient complains of chills. Denies a fever. The ROS documented in this emergency department record has been reviewed and confirmed by me. Those systems with pertinent positive or negative responses have been documented in the HPI. All other systems are other negative and/or noncontributory. PHYSICAL EXAM: General Impression: Alert and oriented x3, mildly dyspneic HEENT: Normocephalic atraumatic, extra-ocular movements intact, pupils equal and reactive to light bilaterally, mucous membranes moist. Cardiovascular: Heart regular rate and rhythm Chest: Able to complete full sentences, no retractions, no tachypnea Abdomen: abdomen soft, non-tender, non-distended, no organomegaly Musculoskeletal: Pulses present and equal in all extremities, no peripheral edema Motor: no focal deficits noted Neurological: CN II-XII grossly intact, no focal motor or sensory deficits noted Skin: Intact with no visualized rashes Psych: Normal affect and mood ED course: 61-year-old female with multiple comorbidities presents emergency department for respiratory infectious symptoms. Signs upon arrival shows temperature 103.3, respiratory rate of 32. Patient initially hypoxic at 80% on room air. She is placed on nasal cannula with improvement of oxygenation to 97%. Nursing notes and chart review was performed EKG interpreted by me: Ventricular rate 79, sinus rhythm, NV interval 160, QRS 80, QTc 435. No NV prolongation, no QTC prolongation, no ST or T-wave changes noted. Overall, this EKG is unremarkable Laboratory evaluation obtained. Metabolic panel shows lactic acidosis 2.7. Electrolytes normal. Troponin 0.167. Patient's history of troponin leak. Influenza A is positive. Coag panel shows INR 1.5. Chest x-ray is nonacute. Patient reevaluated bedside at 10:15 PM found with stable medical condition. S he is satting well with supplemental oxygen. Patient will be admitted for hypoxic respiratory failure secondary to influenza. Patient given DuoNeb and Decadron mild wheezing. Case discussed Dr. Hartley was went except patient's care. CBC shows leukopenia of 2.0. Laboratory evaluation suggests sepsis. Patient will be treated for sepsis with antibiotics. Patient not hypotensive however she does have elevated lactic acid level. Lactic acid level is below for. She is given a 30 mL per KG bolus of fluids. - Related Data Home Medications Medication Instructions Recorded Confirmed Levothyroxine Sodium [Synthroid] 137 mcg PO AC-BRKFST 05/21/19 05/31/22 Cetirizine HCl [Zyrtec] 10 mg PO HS 09/30/21 05/31/22 Albuterol Sulfate [Proair Hfa] 2 puff INHALATION RT-Q6H PRN 11/05/21 05/31/22 Metoprolol Tartrate [Lopressor] 25 mg PO DAILY 11/05/21 05/31/22 Budesonide/Formoterol Fumarate 2 puff INHALATION RT-TID 11/11/21 05/31/22 [Symbicort 80-4.5 Mcg Inhaler] HYDROcodone/APAP 5-325MG [Barnes 1 tab PO Q6H PRN 03/18/22 05/31/22 5-325] Citalopram Hydrobromide [CeleXA] 40 mg PO DAILY 03/21/22 05/31/22 Cyclobenzaprine [Flexeril] 10 mg PO HS 03/21/22 05/31/22 QUEtiapine [SEROquel] 100 mg PO HS 03/21/22 05/31/22 Dicyclomine HCl 10 mg PO TID 09/30/22 09/30/22 Dulaglutide [Trulicity] 0.75 mg SQ MATA 09/30/22 09/30/22 Ferrous Sulfate [Iron] 325 mg PO BID 09/30/22 09/30/22 Sucralfate [Carafate] 1 gm PO ACHS 09/30/22 09/30/22 Previous Rx's Medication Instructions Recorded Atorvastatin [Lipitor] 40 mg PO HS #30 tab 05/05/19 Allergies Allergy/AdvReac Type Severity Reaction Status Date / Time Iodinated Contrast Media Allergy Severe Vomiting/ra Verified 09/30/22 19:56 [Iodinated Contrast- Oral sh/itching and IV Dye] latex Allergy Itching/queta Verified 09/30/22 19:56 h adhesive tape Allergy Itching/queta Uncoded 05/31/22 08:51 h Review of Systems ROS Statement: Those systems with pertinent positive or pertinent negative responses have been documented in the HPI. ROS Other: All systems not noted in ROS Statement are negative. Past Medical History Past Medical History: Atrial Fibrillation, Heart Failure, Diabetes Mellitus, GERD/Reflux, Hyperlipidemia, Hypertension, Liver Disease, Osteoarthritis (OA), Sleep Apnea/CPAP/BIPAP, Thyroid Disorder Additional Past Medical History / Comment(s): Covid pneumonia 09/2021, NIDDM type II, post aortic valve replacement Afib/converted, enlarged fatty liver, DEISI with Cpap, chronic low back pain with spinal stenosis/DDD, CHF with bilateral pleural effusions/bilateral thoracentesis when pt had valve surgery, hypothyroid, arthritis in multiple joints History of Any Multi-Drug Resistant Organisms: None Reported Past Surgical History: Appendectomy, Cardiac Valve Replacement, Cholecystectomy, Heart Catheterization, Orthopedic Surgery, Tonsillectomy, Tubal Ligation Additional Past Surgical History / Comment(s): TREY, 2019 bioprosthetic aortic valve surgery/clip L atrial appendage/post op bilateral thoracentesis, thyroid removed d/t hyperactivity, r foot bunionectomy. Past Anesthesia/Blood Transfusion Reactions: Postoperative Nausea & Vomiting (PONV) Additional Past Anesthesia/Blood Transfusion Reaction / Comment(s): no hx blood transfusion Past Psychological History: Depression Smoking Status: Former smoker - Past Family History Mother Family Medical History: CVA/TIA Additional Family Medical History / Comment(s): Mother of a blood clot in her brainstem. Father Family Medical History: Cancer, Congestive Heart Failure (CHF), COPD Additional Family Medical History / Comment(s): colon cancer General Exam Limitations: no limitations Course Vital Signs 09/30/22 09/30/22 09/30/22 19:53 20:27 20:36 Temperature 103.3 F H Pulse Rate 82 Respiratory 32 H 32 H 20 Rate Blood Pressure 155/68 O2 Sat by Pulse 88 L 95 Oximetry 09/30/22 09/30/22 21:26 22:10 Temperature Pulse Rate 80 86 Respiratory 22 22 Rate Blood Pressure 141/74 O2 Sat by Pulse 96 96 Oximetry Medical Decision Making - Lab Data Result diagrams: 09/30/22 21:11 09/30/22 21:11 Lab Results 09/30/22 09/30/22 09/30/22 Range/Units 20:27 21:11 21:11 WBC 2.0 L (3.8-10.6) k/uL RBC 3.32 L (3.80-5.40) m/uL Hgb 10.4 L (11.4-16.0) gm/dL Hct 31.3 L (34.0-46.0) % MCV 94.1 (80.0-100.0) fL MCH 31.3 (25.0-35.0) pg MCHC 33.2 (31.0-37.0) g/dL RDW 14.6 (11.5-15.5) % MPV 9.8 Hypochromasia Slight Poikilocytosis Slight PT 15.4 H (9.0-12.0) sec INR 1.5 H (<1.2) APTT 31.9 H (22.0-30.0) sec Sodium (137-145) mmol/L Potassium (3.5-5.1) mmol/L Chloride (98-107) mmol/L Carbon Dioxide (22-30) mmol/L Anion Gap mmol/L BUN (7-17) mg/dL Creatinine (0.52-1.04) mg/dL Est GFR (CKD-EPI)AfAm (>60 ml/min/1.73 sqM) Est GFR (CKD-EPI)NonAf (>60 ml/min/1.73 sqM) Glucose (74-99) mg/dL Plasma Lactic Acid Norm (0.7-2.0) mmol/L Calcium (8.4-10.2) mg/dL Magnesium (1.6-2.3) mg/dL Total Bilirubin (0.2-1.3) mg/dL AST (14-36) U/L ALT (4-34) U/L Alkaline Phosphatase (38-126) U/L Troponin I (0.000-0.034) ng/mL Total Protein (6.3-8.2) g/dL Albumin (3.5-5.0) g/dL Influenza Type A (PCR) Detected A (Not Detectd) Influenza Type B (PCR) Not Detected (Not Detectd) RSV (PCR) Not Detected (Not Detectd) SARS-CoV-2 (PCR) Not Detected (Not Detectd) 09/30/22 09/30/22 09/30/22 Range/Units 21:11 21:11 21:11 WBC (3.8-10.6) k/uL RBC (3.80-5.40) m/uL Hgb (11.4-16.0) gm/dL Hct (34.0-46.0) % MCV (80.0-100.0) fL MCH (25.0-35.0) pg MCHC (31.0-37.0) g/dL RDW (11.5-15.5) % MPV Hypochromasia Poikilocytosis PT (9.0-12.0) sec INR (<1.2) APTT (22.0-30.0) sec Sodium 136 L (137-145) mmol/L Potassium 4.3 (3.5-5.1) mmol/L Chloride 109 H (98-107) mmol/L Carbon Dioxide 20 L (22-30) mmol/L Anion Gap 7 mmol/L BUN 11 (7-17) mg/dL Creatinine 0.65 (0.52-1.04) mg/dL Est GFR (CKD-EPI)AfAm >90 (>60 ml/min/1.73 sqM) Est GFR (CKD-EPI)NonAf >90 (>60 ml/min/1.73 sqM) Glucose 142 H (74-99) mg/dL Plasma Lactic Acid Norm 2.7 H* (0.7-2.0) mmol/L Calcium 7.8 L (8.4-10.2) mg/dL Magnesium 1.6 (1.6-2.3) mg/dL Total Bilirubin 2.3 H (0.2-1.3) mg/dL AST 72 H (14-36) U/L ALT 29 (4-34) U/L Alkaline Phosphatase 111 (38-126) U/L Troponin I 0.167 H* (0.000-0.034) ng/mL Total Protein 6.8 (6.3-8.2) g/dL Albumin 3.1 L (3.5-5.0) g/dL Influenza Type A (PCR) (Not Detectd) Influenza Type B (PCR) (Not Detectd) RSV (PCR) (Not Detectd) SARS-CoV-2 (PCR) (Not Detectd) Critical Care Time Critical Care Time: Yes Total Critical Care Time: 33 Disposition Clinical Impression: Influenza Disposition: ADMITTED IP TO THIS HOSP Condition: Serious Referrals: Odilon Hall MD [Primary Care Provider] - 1-2 days Decision Time: 22:43
--- NOTE | 2022-09-30 21:18 | XR ---
EXAMINATION TYPE: XR chest 2V DATE OF EXAM: 09/30/2022 COMPARISON: 10/22/2021 HISTORY: Fever and cough TECHNIQUE: FINDINGS: Heart size is normal. There are sternal wires. The lungs are clear of consolidation. There is slight coarsening of interstitial markings. There are sternal wires. Bony thorax is intact. IMPRESSION: Mild increased lung markings compared to old exam. No pulmonary consolidation or heart fa ilure.
[2022-09-30] MEDS ORDERED: OSELTAMIVIR 75 MG CAP PO STA (21:27)
[2022-09-30 21:33] LABS: Basophils % (A) 1 %; Eosinophils % (A) 0 %; HCT 31.3 % (34.0-46.0); HGB 10.4 gm/dL (11.4-16.0); Hypochromasia Slight; Lymphocytes # (A) 0.2 k/uL (1.0-4.8); Lymphocytes % (A) 12 %; MCH 31.3 pg (25.0-35.0); MCHC 33.2 g/dL (31.0-37.0); MCV 94.1 fL (80.0-100.0); Mean Platelet Volume 9.8; Monocytes # (A) 0.1 k/uL (0-1.0); Monocytes % (A) 6 %; Neutrophils # (A) 1.5 k/uL (1.3-7.7); Neutrophils % (A) 77 %; Poikilocytosis Slight; RBC 3.32 m/uL (3.80-5.40); RDW 14.6 % (11.5-15.5)
[2022-09-30 21:43] LABS: ALT 29 U/L (4-34); AST 72 U/L (14-36); African American GFR (CKD) >90 (>60 ml/min/1.73 sqM); Albumin 3.1 g/dL (3.5-5.0); Alkaline Phosphatase 111 U/L (38-126); Anion Gap 7 mmol/L; Blood Urea Nitrogen 11 mg/dL (7-17); Calcium 7.8 mg/dL (8.4-10.2); Carbon Dioxide 20 mmol/L (22-30); Chloride 109 mmol/L (98-107); Glucose 142 mg/dL (74-99); Magnesium 1.6 mg/dL (1.6-2.3); Non-African American GFR(CKD) >90 (>60 ml/min/1.73 sqM); Potassium 4.3 mmol/L (3.5-5.1); Sodium 136 mmol/L (137-145); Total Bilirubin 2.3 mg/dL (0.2-1.3); Total Protein 6.8 g/dL (6.3-8.2)
[2022-09-30] MEDS ORDERED: ACETAMINOPHEN TAB 500 MG TAB PO STA (21:46)
[2022-09-30 21:55] LABS: INR 1.5 (<1.2); Partial Thromboplastin Time 31.9 sec (22.0-30.0); Prothrombin Time 15.4 sec (9.0-12.0)
[2022-09-30] MEDS ORDERED: ONDANSETRON 4 MG/2 ML VIAL IVP PRN (22:09)
[2022-09-30] MEDS ORDERED: DEXAMETHASONE SOD PHOSPHATE 10 MG/ML 1 ML VIAL IV STA (22:09)
[2022-09-30] MEDS ORDERED: IPRATROPIUM-ALBUTEROL 3 ML NEB INHALATION STA (22:09)
[2022-09-30] MEDS ORDERED: NALOXONE 0.4 MG/ML 1 ML VIAL IV PRN (22:09)
[2022-09-30] MEDS ORDERED: SODIUM CHLORIDE 0.9% 1,000 ML IV SCH (22:15)
[2022-09-30] MEDS ORDERED: SODIUM CHLORIDE 0.9% 1,000 ML IV STA (22:39)
[2022-09-30] MEDS ORDERED: AMPICILLIN-SULBACTAM 3 GM in SODIUM CHLORIDE 0.9% 100 ML IVPB STA (22:40)
[2022-09-30 23:10] LABS: Platelet Count 71 k/uL (150-450)
[2022-09-30] MEDS: SODIUM CHLORIDE 0.9% 1,700 ML IV STA ×2 (23:54→23:55)
[2022-10-01] MEDS: guaiFENesin-Coden 100-10MG/5ML 10 ML CUP PO PRN ×3 (01:59→20:20)
[2022-10-01 04:01] LABS: Amorphous Sediment,Urine Occasional /hpf; Appearance,Urine Cloudy (Clear); Bacteria,Urine Rare /hpf; Bilirubin,Urine Negative (Negative); Blood,Urine Negative (Negative); Color,Urine Yellow; Glucose,Urine (UA) Negative (Negative); Ketones,Urine Negative (Negative); Leukocyte Esterase,Urine Negative (Negative); Mucus,Urine Rare /hpf; Nitrite,Urine Negative (Negative); Protein,Urine Trace (Negative); RBC,Urine <1 /hpf (0-5); Specific Gravity,Urine 1.027 (1.001-1.035); Squamous Epithelial Cell,Urine 2 /hpf (0-4); WBC,Urine 1 /hpf (0-5)
[2022-10-01] MEDS: IPRATROPIUM-ALBUTEROL 3 ML NEB INHALATION PRN ×2 (04:29→08:38)
[2022-10-01] MEDS: SODIUM CHLORIDE 0.9% 1,000 ML IV SCH ×3 (07:44→23:02)
[2022-10-01] MEDS ORDERED: CYCLOBENZAPRINE 10 MG TAB PO PRN (08:01)
[2022-10-01] MEDS ORDERED: DEXTROSE 50% SYRINGE 50 ML IVP PRN ×2 (08:06)
--- NOTE | 2022-10-01 08:06 | P.HPIM ---
History of Present Illness H&P Date: 10/01/22 Chief Complaint: Weakness and body aches. This is 61-year-old white female with history of depression and bipolar disorder who has history of GI bleed in the past who came in after two-week history of worsening sickness. The patient states upper respiratory congestion. The patient supposedly has had transfusion in about 3-4 months ago due to GI bleed with cauterization. Question element of AV malformation. The patient is new to me. She is nonsmoker. No known sick contacts are stated. She is resting comfortably in her stretcher today. She is a nonsmoker. Review of Systems Constitutional: Reports fever, Reports lethargy, Reports weakness Eyes: denies blurred vision, denies pain Ears, nose, mouth and throat: Denies headache, Denies sore throat Cardiovascular: Denies chest pain, Denies shortness of breath Respiratory: Reports as per HPI, Reports congestion, Reports cough with sputum, Denies hemoptysis Gastrointestinal: Denies abdominal pain, Denies diarrhea, Denies nausea, Denies vomiting Genitourinary: Denies dysuria, Denies hematuria Past Medical History Past Medical History: Atrial Fibrillation, Heart Failure, Diabetes Mellitus, GERD/Reflux, Hyperlipidemia, Hypertension, Liver Disease, Osteoarthritis (OA), Sleep Apnea/CPAP/BIPAP, Thyroid Disorder Additional Past Medical History / Comment(s): Covid pneumonia 09/2021, NIDDM type II, post aortic valve replacement Afib/converted, enlarged fatty liver, DEISI with Cpap, chronic low back pain with spinal stenosis/DDD, CHF with bilateral pleural effusions/bilateral thoracentesis when pt had valve surgery, hypothyroid, arthritis in multiple joints History of Any Multi-Drug Resistant Organisms: None Reported Past Surgical History: Appendectomy, Cardiac Valve Replacement, Cholecystectomy, Heart Catheterization, Orthopedic Surgery, Tonsillectomy, Tubal Ligation Additional Past Surgical History / Comment(s): TREY, 2019 bioprosthetic aortic valve surgery/clip L atrial appendage/post op bilateral thoracentesis, thyroid removed d/t hyperactivity, r foot bunionectomy. Past Anesthesia/Blood Transfusion Reactions: Postoperative Nausea & Vomiting (P ONV) Additional Past Anesthesia/Blood Transfusion Reaction / Comment(s): no hx blood transfusion Past Psychological History: Depression Smoking Status: Former smoker - Past Family History Mother Family Medical History: CVA/TIA Additional Family Medical History / Comment(s): Mother of a blood clot in her brainstem. Father Family Medical History: Cancer, Congestive Heart Failure (CHF), COPD Additional Family Medical History / Comment(s): colon cancer Medications and Allergies Home Medications Medication Instructions Recorded Confirmed Type Atorvastatin [Lipitor] 40 mg PO HS #30 tab 05/05/19 09/30/22 Rx Levothyroxine Sodium [Synthroid] 137 mcg PO DAILY 05/21/19 09/30/22 History Cetirizine HCl [Zyrtec] 10 mg PO HS 09/30/21 09/30/22 History Albuterol Sulfate [Proair Hfa] 2 puff INHALATION RT-Q6H PRN 11/05/21 09/30/22 Hi story Metoprolol Tartrate [Lopressor] 37.5 mg PO DAILY 11/05/21 09/30/22 History Budesonide/Formoterol Fumarate 2 puff INHALATION RT-BID 11/11/21 09/30/22 History [Symbicort 80-4.5 Mcg Inhaler] HYDROcodone/APAP 5-325MG [[place] 1 tab PO Q4H PRN 03/18/22 09/30/22 History 5-325] Citalopram Hydrobromide [CeleXA] 40 mg PO DAILY 03/21/22 09/30/22 History Cyclobenzaprine [Flexeril] 10 mg PO TID PRN 03/21/22 09/30/22 History QUEtiapine [SEROquel] 100 mg PO HS 03/21/22 09/30/22 History Dicyclomine HCl 10 mg PO TID 09/30/22 09/30/22 History Dulaglutide [Trulicity] 0.75 mg SQ MATA 09/30/22 09/30/22 History Ferrous Sulfate [Iron] 325 mg PO BID 09/30/22 09/30/22 History Sucralfate [Carafate] 1 gm PO ACHS 09/30/22 09/30/22 History Allergies Allergy/AdvReac Type Severity Reaction Status Date / Time Iodinated Contrast Media Allergy Severe Vomiting/ra Verified 09/30/22 19:56 [Iodinated Contrast- Oral sh/itching and IV Dye] latex Allergy Itching/queta Verified 09/30/22 19:56 h adhesive tape Allergy Itching/queta Uncoded 05/31/22 08:51 h Physical Exam Vitals: Vital Signs Temp Pulse Resp BP Pulse Ox 10/01/22 07:44 76 14 143/64 95 10/01/22 06:51 79 18 115/66 100 10/01/22 04:41 84 10/01/22 04:30 83 10/01/22 04:00 80 22 143/65 96 10/01/22 03:05 16 10/01/22 01:00 98.1 F 09/30/22 23:59 83 28 H 113/37 92 L 09/30/22 23:05 85 09/30/22 22:58 83 09/30/22 22:10 86 22 141/74 96 09/30/22 21:26 80 22 96 09/30/22 20:36 20 95 09/30/22 20:27 32 H 09/30/22 19:53 103.3 F H 82 32 H 155/68 88 L Intake and Output 09/30/22 10/01/22 10/01/22 22:59 06:59 14:59 Other: Weight 99.79 kg - Constitutional General appearance: cooperative, no disheveled, no no acute distress - EENT Eyes: EOMI - Neck Neck: no lymphadenopathy - Respiratory Respiratory: bilateral: rhonchi, wheezing - Cardiovascular Rhythm: irregularly irregular Heart sounds: normal: S1, S2 Abnormal Heart Sounds: no S3 Gallop - Gastrointestinal General gastrointestinal: soft, no tenderness - Integumentary Integumentary: no cellulitis Results CBC & Chem 7: 09/30/22 21:11 09/30/22 21:11 Labs: Abnormal Lab Results - Last 24 Hours (Table) 09/30/22 09/30/22 09/30/22 Range/Units 20:27 21:11 21:11 WBC 2.0 L (3.8-10.6) k/uL RBC 3.32 L (3.80-5.40) m/uL Hgb 10.4 L (11.4-16.0) gm/dL Hct 31.3 L (34.0-46.0) % Plt Count 71 L (150-450) k/uL Lymphocytes # 0.2 L (1.0-4.8) k/uL PT 15.4 H (9.0-12.0) sec INR 1.5 H (<1.2) APTT 31.9 H (22.0-30.0) sec Sodium (137-145) mmol/L Chloride (98-107) mmol/L Carbon Dioxide (22-30) mmol/L Glucose (74-99) mg/dL Plasma Lactic Acid Norm (0.7-2.0) mmol/L Calcium (8.4-10.2) mg/dL Total Bilirubin (0.2-1.3) mg/dL AST (14-36) U/L Troponin I (0.000-0.034) ng/mL Albumin (3.5-5.0) g/dL Urine Appearance (Clear) Urine Protein (Negative) Amorphous Sediment (None) /hpf Urine Bacteria (None) /hpf Urine Mucus (None) /hpf Influenza Type A (PCR) Detected A (Not Detectd) 09/30/22 09/30/22 09/30/22 Range/Units 21:11 21:11 21:11 WBC (3.8-10.6) k/uL RBC (3.80-5.40) m/uL Hgb (11.4-16.0) gm/dL Hct (34.0-46.0) % Plt Count (150-450) k/uL Lymphocytes # (1.0-4.8) k/uL PT (9.0-12.0) sec INR (<1.2) APTT (22.0-30.0) sec Sodium 136 L (137-145) mmol/L Chloride 109 H (98-107) mmol/L Carbon Dioxide 20 L (22-30) mmol/L Glucose 142 H (74-99) mg/dL Plasma Lactic Acid Norm 2.7 H* (0.7-2.0) mmol/L Calcium 7.8 L (8.4-10.2) mg/dL Total Bilirubin 2.3 H (0.2-1.3) mg/dL AST 72 H (14-36) U/L Troponin I 0.167 H* (0.000-0.034) ng/mL Albumin 3.1 L (3.5-5.0) g/dL Urine Appearance (Clear) Urine Protein (Negative) Amorphous Sediment (None) /hpf Urine Bacteria (None) /hpf Urine Mucus (None) /hpf Influenza Type A (PCR) (Not Detectd) 10/01/22 10/01/22 10/01/22 Range/Units 00:14 03:50 05:52 WBC (3.8-10.6) k/uL RBC (3.80-5.40) m/uL Hgb (11.4-16.0) gm/dL Hct (34.0-46.0) % Plt Count (150-450) k/uL Lymphocytes # (1.0-4.8) k/uL PT (9.0-12.0) sec INR (<1.2) APTT (22.0-30.0) sec Sodium (137-145) mmol/L Chloride (98-107) mmol/L Carbon Dioxide (22-30) mmol/L Glucose (74-99) mg/dL Plasma Lactic Acid Norm 2.6 H* 2.8 H* (0.7-2.0) mmol/L Calcium (8.4-10.2) mg/dL Total Bilirubin (0.2-1.3) mg/dL AST (14-36) U/L Troponin I (0.000-0.034) ng/mL Albumin (3.5-5.0) g/dL Urine Appearance Cloudy H (Clear) Urine Protein Trace H (Negative) Amorphous Sediment Occasional H (None) /hpf Urine Bacteria Rare H (None) /hpf Urine Mucus Rare H (None) /hpf Influenza Type A (PCR) (Not Detectd) Assessment and Plan (1) Influenza Current Visit: Yes Status: Acute Code(s): J11.1 - FLU DUE TO UNIDENTIFIED INFLUENZA VIRUS W OTH RESP MANIFEST SNOMED Code(s): 0412974 (2) Chronic anemia Current Visit: No Status: Acute Code(s): D64.9 - ANEMIA, UNSPECIFIED SNOMED Code(s): 248151650 (3) History of ITP Current Visit: No Status: Acute Code(s): Z86.2 - PRSNL HISTORY OF DIS OF THE BLD/BLD-FORM ORG/IMMUN MECHN SNOMED Code(s): 925700142 (4) Hypertension, essential Current Visit: No Status: Acute Code(s): I10 - ESSENTIAL (PRIMARY) HYPERTENSION SNOMED Code(s): 86366123 (5) Lactic acidosis Current Visit: No Status: Acute Code(s): E87.2 - ACIDOSIS * DO NOT USE * SNOMED Code(s): 29212184 (6) Nonalcoholic steatohepatitis (CALLEJAS) Current Visit: No Status: Acute Code(s): K75.81 - NONALCOHOLIC STEATOHEPA TITIS (CALLEJAS) SNOMED Code(s): 601130103 (7) Status post aortic valve replacement Current Visit: No Status: Acute Code(s): Z95.2 - PRESENCE OF PROSTHETIC HEART VALVE SNOMED Code(s): 7469608773576 Plan: Reconcile medications. Continue empiric treatment with Unasyn and Tamiflu. Reconcile medications. Supposed history of NIDDM. Place on sliding scale check A1c. Check CBC and CMP in a.m.
[2022-10-01] MEDS ORDERED: SYMBICORT 80-4.5 MCG INHALER INHALATION SCH (08:45)
[2022-10-01] MEDS: CITALOPRAM HYDROBROMIDE 20 MG TAB PO SCH (09:08)
[2022-10-01] MEDS: FERROUS SULFATE 325 MG TAB PO SCH ×2 (09:08→20:10)
[2022-10-01] MEDS: METOPROLOL TARTRATE 25 MG TAB PO SCH (09:08)
[2022-10-01] MEDS: DICYCLOMINE 10 MG CAP PO SCH ×3 (09:08→20:10)
[2022-10-01] MEDS: LEVOTHYROXINE 137 MCG TAB PO SCH (09:08)
[2022-10-01] MEDS: IPRATROPIUM-ALBUTEROL 3 ML NEB INHALATION SCH ×3 (12:02→21:33)
[2022-10-01 12:23] LABS: Glucose,Whole Blood 155 mg/dL (70-110)
[2022-10-01] MEDS: SUCRALFATE 1 GM TAB PO SCH ×3 (12:53→20:10)
[2022-10-01] MEDS: methylPREDNISolone SOD SUCCI 125 MG/2 ML VIAL IV SCH ×3 (12:53→23:02)
--- NOTE | 2022-10-01 14:28 | P.CNPUL ---
History of Present Illness Consult date: 10/01/22 Requesting physician: Alvin Hartley Reason for consult: dyspnea, cough Chief complaint: Shortness of breath, wheezing. History of present illness: Pulmonary consult dated 10/01/2022. 61-year-old female who presented to the emergency department on September 30, complaining of shortness of breath. The patient hasn't been feeling well for about 2 weeks. The patient came into the ER, because over the last couple of days, her symptoms progressed. She was coughing, wheezing, and very short of breath. Apparently tested positive for influenza A. We see her in the emergency room, room 26. She is on room air. She's not receiving any IV fluids. The patient has a history of atrial fibrillation, CHF, diabetes, GERD, hyperlipidemia, hypertension, osteoarthritis, fatty liver, and sleep apnea, a fransisca other things. White count 2, hemoglobin 10.4, hematocrit 31.3, and platelet count 71,000 PT 15.4, INR 1.5, and PTT is 31.9. Sodium 136, potassium 4.3, chlorides 109, CO2 20, BUN 11, creatinine 0.65. Lactic acid was 2.7, repeat was 3.5. Calcium 7.8. Troponin 0.167. Urine was negative. Influenza A studies were positive. Chest x-ray, and our opinion, was essentially normal. Review of Systems REVIEW OF SYSTEMS: CONSTITUTIONAL: [Negative.] NEUROLOGIC: [ Negative.] HEENT: [ Negative.] CARDIAC: [Negative.] PULMONARY: Cough, shortness of breath, wheezing. GI: [Negative.] : [Negative.] RHEUMATOLOGIC: [ Negative.] IMMUNOLOGIC: [ Negative.] ENDOCRINE: [Negative. ] DERMATOLOGIC: [Negative.] Past Medical History Past Medical History: Atrial Fibrillation, Heart Failure, Diabetes Mellitus, GERD/Reflux, Hyperlipidemia, Hypertension, Liver Disease, Osteoarthritis (OA), Sleep Apnea/CPAP/BIPAP, Thyroid Disorder Additional Past Medical History / Comment(s): Covid pneumonia 09/2021, NIDDM type II, post aortic valve replacement Afib/converted, enlarged fatty liver, DEISI with Cpap, chronic low back pain with spinal stenosis/DDD, CHF with bilateral pleural effusions/bilateral thoracentesis when pt had valve surgery, hypothyroid, arthritis in multiple joints History of Any Multi-Drug Resistant Organisms: None Reported Past Surgical History: Appendectomy, Cardiac Valve Replacement, Cholecystectomy, Heart Catheterization, Orthopedic Surgery, Tonsillectomy, Tubal Ligation Additional Past Surgical History / Comment(s): TREY, 2019 bioprosthetic aortic valve surgery/clip L atrial appendage/post op bilateral thoracentesis, thyroid removed d/t hyperactivity, r foot bunionectomy. Past Anesthesia/Blood Transfusion Reactions: Postoperative Nausea & Vomiting (PONV) Additional Past Anesthesia/Blood Transfusion Reaction / Comment(s): no hx blood transfusion Past Psychological History: Depression Smoking Status: Former smoker - Past Family History Mother Family Medical History: CVA/TIA Additional Family Medical History / Comment(s): Mother of a blood clot in her brainstem. Father Family Medical History: Cancer, Congestive Heart Failure (CHF), COPD Additional Family Medical History / Comment(s): colon cancer Medications and Allergies Home Medications Medication Instructions Recorded Confirmed Type Atorvastatin [Lipitor] 40 mg PO HS #30 tab 05/05/19 09/30/22 Rx Levothyroxine Sodium [Synthroid] 137 mcg PO DAILY 05/21/19 09/30/22 History Cetirizine HCl [Zyrtec] 10 mg PO HS 09/30/21 09/30/22 History Albuterol Sulfate [Proair Hfa] 2 puff INHALATION RT-Q6H PRN 11/05/21 09/30/22 History Metoprolol Tartrate [Lopressor] 37.5 mg PO DAILY 11/05/21 09/30/22 History Budesonide/Formoterol Fumarate 2 puff INHALATION RT-BID 11/11/21 09/30/22 History [Symbicort 80-4.5 Mcg Inhaler] HYDROcodone/APAP 5-325MG [[place] 1 tab PO Q4H PRN 03/18/22 09/30/22 History 5-325] Citalopram Hydrobromide [CeleXA] 40 mg PO DAILY 03/21/22 09/30/22 History Cyclobenzaprine [Flexeril] 10 mg PO TID PRN 03/21/22 09/30/22 History QUEtiapine [SEROquel] 100 mg PO HS 03/21/22 09/30/22 History Dicyclomine HCl 10 mg PO TID 09/30/22 09/30/22 History Dulaglutide [Trulicity] 0.75 mg SQ MATA 09/30/22 09/30/22 History Ferrous Sulfate [Iron] 325 mg PO BID 09/30/22 09/30/22 History Sucralfate [Carafate] 1 gm PO ACHS 09/30/22 09/30/22 History Allergies Allergy/AdvReac Type Severity Reaction Status Date / Time Iodinated Contrast Media Allergy Severe Vomiting/ra Verified 09/30/22 19:56 [Iodinated Contrast- Oral sh/itching and IV Dye] latex Allergy Itching/queta Verified 09/30/22 19:56 h adhesive tape Allergy Itching/queta Uncoded 05/31/22 08:51 h Physical Exam Osteopathic Statement: *. No significant issues noted on an osteopathic structural exam other than those noted in the History and Physical/Consult. Vitals: Vital Signs Temp Pulse Resp BP Pulse Ox 10/01/22 12:56 74 20 121/59 98 10/01/22 12:15 74 10/01/22 12:04 70 10/01/22 08:53 80 10/01/22 08:41 76 10/01/22 07:44 76 14 143/64 95 10/01/22 06:51 79 18 115/66 100 10/01/22 04:41 84 10/01/22 04:30 83 10/01/22 04:00 80 22 143/65 96 10/01/22 03:05 16 10/01/22 01:00 98.1 F 09/30/22 23:59 83 28 H 113/37 92 L 09/30/22 23:05 85 09/30/22 22:58 83 09/30/22 22:10 86 22 141/74 96 09/30/22 21:26 80 22 96 09/30/22 20:36 20 95 09/30/22 20:27 32 H 09/30/22 19:53 103.3 F H 82 32 H 155/68 88 L Intake and Output 09/30/22 10/01/22 10/01/22 22:59 06:59 14:59 Other: Weight 99.79 kg No acute distress, oriented 3. Mild conversational dyspnea. No use of accessory muscles. No audible wheezing. Room air saturation 98%. HEENT examination is grossly unremarkable. Neck supple. Full range of motion. No adenopathy thyromegaly or neck vein distention. Cardiovascular examination reveals regular rhythm rate. S1-S2 normal. No S3 or S4. No discernible murmur noted. Heart rate 74 bpm. Lungs reveal bilateral expiratory rhonchi and expiratory wheezes. The patient is fairly bronchospastic. No crackles. Breath sounds are equal bilaterally. Room air saturation is 98%. Abdomen soft bowel sounds are heard. No masses or tenderness. Extremities are intact. No cyanosis clubbing or edema. Skin is without rash or lesion. Neurologic examination is brief but nonfocal. Results - Laboratory Findings CBC and BMP: 09/30/22 21:11 09/30/22 21:11 PT/INR, D-dimer PT 15.4 sec (9.0-12.0) H 09/30/22 21:11 INR 1.5 (<1.2) H 09/30/22 21:11 Abnormal lab findings: Abnormal Labs 09/30/22 09/30/22 09/30/22 20:27 21:11 21:11 WBC 2.0 L RBC 3.32 L Hgb 10.4 L Hct 31.3 L Plt Count 71 L Lymphocytes # 0.2 L PT 15.4 H INR 1.5 H APTT 31.9 H Sodium Chloride Carbon Dioxide Glucose POC Glucose (mg/dL) Plasma Lactic Acid Norm Calcium Total Bilirubin AST Troponin I Albumin Urine Appearance Urine Protein Amorphous Sediment Urine Bacteria Urine Mucus Influenza Type A (PCR) Detected A 09/30/22 09/30/22 09/30/22 21:11 21:11 21:11 WBC RBC Hgb Hct Plt Count Lymphocytes # PT INR APTT Sodium 136 L Chloride 109 H Carbon Dioxide 20 L Glucose 142 H POC Glucose (mg/dL) Plasma Lactic Acid Norm 2.7 H* Calcium 7.8 L Total Bilirubin 2.3 H AST 72 H Troponin I 0.167 H* Albumin 3.1 L Urine Appearance Urine Protein Amorphous Sediment Urine Bacteria Urine Mucus Influenza Type A (PCR) 10/01/22 10/01/22 10/01/22 00:14 03:50 05:52 WBC RBC Hgb Hct Plt Count Lymphocytes # PT INR APTT Sodium Chloride Carbon Dioxide Glucose POC Glucose (mg/dL) Plasma Lactic Acid Norm 2.6 H* 2.8 H* Calcium Total Bilirubin AST Troponin I Albumin Urine Appearance Cloudy H Urine Protein Trace H Amorphous Sediment Occasional H Urine Bacteria Rare H Urine Mucus Rare H Influenza Type A (PCR) 10/01/22 10/01/22 10/01/22 08:50 12:22 12:23 WBC RBC Hgb Hct Plt Count Lymphocytes # PT INR APTT Sodium Chloride Carbon Dioxide Glucose POC Glucose (mg/dL) 155 H Plasma Lactic Acid Norm 3.6 H* 3.5 H* Calcium Total Bilirubin AST Troponin I Albumin Urine Appearance Urine Protein Amorphous Sediment Urine Bacteria Urine Mucus Influenza Type A (PCR) - Diagnostic Findings Chest x-ray: image reviewed Assessment and Plan Assessment: Acute bronchospasm and bronchial inflammation, likely triggered by influenza A infection. History of atrial fibrillation. History of valvular heart disease with valve replacement. History of heart failure. History of diabetes mellitus. Gastroesophageal reflux disease. Hyperlipidemia. Hypertension. History of sleep apnea syndrome. History of hypothyroidism. Obesity. Multiple other medical problems and comorbidities. Plan: Plan dated 10/01/2022. The patient was seen in the emergency department. We gave the patient Solu- Medrol 60 mg every 6 hours for her bronchial inflammation and bronchospasm. The patient is also getting breathing treatments. Additional recommendations and suggestions are forthcoming. Hopeful discharge soon. Labs, x-rays, and medications are reviewed. Because she's been sick for 2 weeks, Tamiflu is probably not indicated. Time with Patient: Greater than 30
[2022-10-01 16:50] LABS: Glucose,Whole Blood 201 mg/dL (70-110)
[2022-10-01] MEDS: INSULIN ASPART (NovoLOG) 100 UNIT/ML VIAL SQ SCH ×2 (17:30→20:20)
[2022-10-01] MEDS ORDERED: SODIUM CHLORIDE 0.9% 500 ML 500 ML IV ONE (19:12)
[2022-10-01] MEDS: LORATADINE 10 MG TAB PO SCH (20:10)
[2022-10-01] MEDS: ATORVASTATIN 40 MG TAB PO SCH (20:10)
[2022-10-01 20:16] LABS: Glucose,Whole Blood 234 mg/dL (70-110)
[2022-10-01] MEDS: QUEtiapine 100 MG TAB PO SCH (20:20)
[2022-10-02 06:04] LABS: Glucose,Whole Blood 149 mg/dL (70-110)
[2022-10-02] MEDS: INSULIN ASPART (NovoLOG) 100 UNIT/ML VIAL SQ SCH ×4 (06:05→22:16)
[2022-10-02] MEDS: LEVOTHYROXINE 137 MCG TAB PO SCH (06:10)
[2022-10-02] MEDS: SUCRALFATE 1 GM TAB PO SCH ×4 (06:10→22:15)
[2022-10-02] MEDS: SODIUM CHLORIDE 0.9% 1,000 ML IV SCH (06:10)
[2022-10-02] MEDS: methylPREDNISolone SOD SUCCI 125 MG/2 ML VIAL IV SCH ×3 (06:10→17:36)
[2022-10-02] MEDS: IPRATROPIUM-ALBUTEROL 3 ML NEB INHALATION SCH ×4 (07:24→19:12)
[2022-10-02 08:26] LABS: HCT 29.9 % (34.0-46.0); HGB 9.5 gm/dL (11.4-16.0); Hypochromasia Marked; MCH 31.1 pg (25.0-35.0); MCHC 31.7 g/dL (31.0-37.0); Mean Platelet Volume 9.5; Poikilocytosis Slight; RBC 3.05 m/uL (3.80-5.40); RDW 14.2 % (11.5-15.5)
[2022-10-02 08:30] LABS: Platelet Count 53 k/uL (150-450)
[2022-10-02 08:45] LABS: ALT 31 U/L (4-34); AST 63 U/L (14-36); African American GFR (CKD) >90 (>60 ml/min/1.73 sqM); Albumin 2.8 g/dL (3.5-5.0); Alkaline Phosphatase 82 U/L (38-126); Anion Gap 5 mmol/L; Blood Urea Nitrogen 16 mg/dL (7-17); Calcium 7.7 mg/dL (8.4-10.2); Carbon Dioxide 19 mmol/L (22-30); Chloride 116 mmol/L (98-107); Glucose 153 mg/dL (74-99); Non-African American GFR(CKD) >90 (>60 ml/min/1.73 sqM); Potassium 4.4 mmol/L (3.5-5.1); Sodium 140 mmol/L (137-145); Total Bilirubin 1.5 mg/dL (0.2-1.3); Total Protein 6.3 g/dL (6.3-8.2)
[2022-10-02] MEDS: METOPROLOL TARTRATE 25 MG TAB PO SCH (10:18)
[2022-10-02] MEDS: FERROUS SULFATE 325 MG TAB PO SCH ×2 (10:19→22:15)
[2022-10-02] MEDS: DICYCLOMINE 10 MG CAP PO SCH ×3 (10:19→22:16)
[2022-10-02] MEDS: CITALOPRAM HYDROBROMIDE 20 MG TAB PO SCH (10:19)
[2022-10-02 11:35] LABS: Glucose,Whole Blood 228 mg/dL (70-110)
--- NOTE | 2022-10-02 12:08 | P.PN ---
Subjective Progress Note Date: 10/02/22 61-year-old female who presented to the emergency department on September 30, complaining of shortness of breath. The patient hasn't been feeling well for about 2 weeks. The patient came into the ER, because over the last couple of days, her symptoms progressed. She was coughing, wheezing, and very short of breath. Apparently tested positive for influenza A. We see her in the emergency room, room 26. She is on room air. She's not receiving any IV fluids. The patient has a history of atrial fibrillation, CHF, diabetes, GERD, hyperlipidemia, hypertension, osteoarthritis, fatty liver, and sleep apnea, among other things. White count 2, hemoglobin 10.4, hematocrit 31.3, and platelet count 71,000 PT 15.4, INR 1.5, and PTT is 31.9. Sodium 136, potassium 4.3, chlorides 109, CO2 20, BUN 11, creatinine 0.65. Lactic acid was 2.7, repeat was 3.5. Calcium 7.8. Troponin 0.167. Urine was negative. Influenza A studies were positive. Chest x-ray, and our opinion, was essentially normal. The patient is seen today 10/02/2022 in follow-up on the selective care unit. She is currently resting comfortably in bed. Awake and alert in no acute distress. She is still quite fatigued. She is still congested and coughing. She is maintaining O2 saturations in the 90s on 2 L/m per nasal cannula. Normal saline at 100 ML's per hour. She is recovering from influenza A. Blood cultures reveal no growth. White count 3.0. Hemoglobin 9.5. Platelets 53,000. Sodium 140. Potassium 4.4. Bicarb 19. BUN 16. Creatinine 0.54. Glucose 153. She is continued on DuoNeb inhalations, IV Solu-Medrol. Objective - Vital Signs Vital signs: Vital Signs Temp 97.5 F L 10/02/22 07:45 Pulse 86 10/02/22 07:45 Resp 18 10/02/22 07:45 BP 132/62 10/02/22 07:45 Pulse Ox 98 10/02/22 07:45 FiO2 Intake & Output 10/01/22 10/02/22 10/02/22 18:59 06:59 18:59 Intake Total 657 Balance 657 Intake: Oral 657 Other: Voiding Method Toilet # Voids 2 1 - Exam GENERAL EXAM: Alert, pleasant 61-year-old female, resting in bed, on 2 L nasal cannula, comfortable in no apparent distress. HEAD: Normocephalic. EYES: Normal reaction of pupils, equal size. NOSE: Clear with pink turbinates. THROAT: No erythema or exudates. NECK: No masses, no JVD. CHEST: No chest wall deformity. LUNGS: Equal air entry with bilateral scattered rhonchi. CVS: S1 and S2 normal with no audible murmur, regular rhythm. ABDOMEN: No hepatosplenomegaly, normal bowel sounds, no guarding or rigidity. SPINE: No scoliosis or deformity SKIN: No rashes CENTRAL NERVOUS SYSTEM: No focal deficits, tone is normal in all 4 extremities. EXTREMITIES: There is no peripheral edema. No clubbing, no cyanosis. Peripheral pulses are intact. - Labs CBC & Chem 7: 10/02/22 07:43 10/02/22 07:43 Labs: Abnormal Lab Results - Last 24 Hours (Table) 10/01/22 10/01/22 10/01/22 Range/Units 12: 12:23 15:38 WBC (3.8-10.6) k/uL RBC (3.80-5.40) m/uL Hgb (11.4-16.0) gm/dL Hct (34.0-46.0) % Plt Count (150-450) k/uL Chloride (98-107) mmol/L Carbon Dioxide (22-30) mmol/L Glucose (74-99) mg/dL POC Glucose (mg/dL) 155 H (70-110) mg/dL Plasma Lactic Acid Norm 3.5 H* 3.7 H* (0.7-2.0) mmol/L Calcium (8.4-10.2) mg/dL Total Bilirubin (0.2-1.3) mg/dL AST (14-36) U/L Albumin (3.5-5.0) g/dL 10/01/22 10/01/22 10/01/22 Range/Units 16:47 18:28 20:15 WBC (3.8-10.6) k/uL RBC (3.80-5.40) m/uL Hgb (11.4-16.0) gm/dL Hct (34.0-46.0) % Plt Count (150-450) k/uL Chloride (98-107) mmol/L Carbon Dioxide (22-30) mmol/L Glucose (74-99) mg/dL POC Glucose (mg/dL) 201 H 234 H (70-110) mg/dL Plasma Lactic Acid Norm 5.0 H* (0.7-2.0) mmol/L Calcium (8.4-10.2) mg/dL Total Bilirubin (0.2-1.3) mg/dL AST (14-36) U/L Albumin (3.5-5.0) g/dL 10/01/22 10/02/22 10/02/22 Range/Units 21:19 00:31 06:02 WBC (3.8-10.6) k/uL RBC (3.80-5.40) m/uL Hgb (11.4-16.0) gm/dL Hct (34.0-46.0) % Plt Count (150-450) k/uL Chloride (98-107) mmol/L Carbon Dioxide (22-30) mmol/L Glucose (74-99) mg/dL POC Glucose (mg/dL) 149 H (70-110) mg/dL Plasma Lactic Acid Norm 3.7 H* 2.6 H* (0.7-2.0) mmol/L Calcium (8.4-10.2) mg/dL Total Bilirubin (0.2-1.3) mg/dL AST (14-36) U/L Albumin (3.5-5.0) g/dL 10/02/22 10/02/22 10/02/22 Range/Units 07:43 07:43 11:34 WBC 3.0 L (3.8-10.6) k/uL RBC 3.05 L (3.80-5.40) m/uL Hgb 9.5 L (11.4-16.0) gm/dL Hct 29.9 L (34.0-46.0) % Plt Count 53 L (150-450) k/uL Chloride 116 H (98-107) mmol/L Carbon Dioxide 19 L (22-30) mmol/L Glucose 153 H (74-99) mg/dL POC Glucose (mg/dL) 228 H (70-110) mg/dL Plasma Lactic Acid Norm (0.7-2.0) mmol/L Calcium 7.7 L (8.4-10.2) mg/dL Total Bilirubin 1.5 H (0.2-1.3) mg/dL AST 63 H (14-36) U/L Albumin 2.8 L (3.5-5.0) g/dL Microbiology - Last 24 Hours (Table) 09/30/22 22:35 Blood Culture - Preliminary Blood No Growth after 24 hours Assessment and Plan Assessment: Acute hypoxemic respiratory failure secondary to acute bronchospasm and bronchial inflammation, likely triggered by influenza A infection. History of atrial fibrillation. History of valvular heart disease with valve replacement. History of heart failure. History of diabetes mellitus. Gastroesophageal reflux disease. Hyperlipidemia. Hypertension. History of sleep apnea syndrome. History of hypothyroidism. Obesity. Multiple other medical problems and comorbidities. Plan: The patient was seen and evaluated Improved but not quite back to her baseline Continue to titrate the FiO2 as tolerated Continue bronchodilators, IV Solu-Medrol Heparin for DVT prophylaxis We will continue to follow I have personally seen and examined the patient, performed the documentation and the assessment and plan as written. Number of minutes spent on the visit: 10.
[2022-10-02] MEDS: guaiFENesin-Coden 100-10MG/5ML 10 ML CUP PO PRN (13:47)
[2022-10-02 17:03] LABS: Glucose,Whole Blood 208 mg/dL (70-110)
[2022-10-02 21:06] LABS: Glucose,Whole Blood 261 mg/dL (70-110)
[2022-10-02] MEDS: LORATADINE 10 MG TAB PO SCH (22:16)
[2022-10-02] MEDS: QUEtiapine 100 MG TAB PO SCH (22:16)
[2022-10-02] MEDS: ATORVASTATIN 40 MG TAB PO SCH (22:16)
[2022-10-03] MEDS: SODIUM CHLORIDE 0.9% 1,000 ML IV SCH ×2 (00:30→08:30)
[2022-10-03] MEDS: methylPREDNISolone SOD SUCCI 125 MG/2 ML VIAL IV SCH ×4 (00:56→18:30)
[2022-10-03] MEDS: ACETAMINOPHEN TAB 325 MG TAB PO PRN (02:25)
[2022-10-03] MEDS: guaiFENesin-Coden 100-10MG/5ML 10 ML CUP PO PRN ×3 (02:25→18:37)
--- NOTE | 2022-10-03 04:22 | P.PN ---
Subjective Progress Note Date: 10/02/22 This is 61-year-old white female with history of depression and bipolar disorder who has history of GI bleed in the past who came in after two-week history of worsening sickness. The patient states upper respiratory congestion. The patient supposedly has had transfusion in about 3-4 months ago due to GI bleed with cauterization. Question element of AV malformation. The patient is new to me. She is nonsmoker. No known sick contacts are stated. She is resting comfortably in her stretcher today. She is a nonsmoker. 10/02/2022 Patient is seen and evaluated and follow-up covering for Dr. Alvin Hartley and patient coming in with worsening generalized weakness and upper respiratory congestion. Pulmonary is following and patient was continued on breathing treatments along with IV steroids and being treated for acute flu. Last reviewed and stable. Patient is continued on 2 L nasal cannula with continued congestion and cough. Patient denies chest pain or palpitations. Patient has been up to the bathroom. No reports of nausea or vomiting noted. Wean FiO2 as tolerated. Review of systems: Constitutional: reports of fatigue, no fever, or chills Cardiovascular: No reports of chest pain or palpitations Respiratory: No reports of worsening shortness of breath and continues with cough GI: No reports of nausea, vomiting, or diarrhea : No reports of dysuria or retention Neurovascular: reports of generalized weakness and not feeling well All medications have been reviewed Active Medications Acetaminophen (Acetaminophen Tab 325 Mg Tab) 650 mg PO Q6HR PRN PRN Reason: Mild Pain or Fever > 100.5 Hydrocodone Bitart/Acetaminophen (Hydrocodone/Apap 5-325mg 1 Each Tab) 1 each PO Q4H PRN PRN Reason: Pain Albuterol/Ipratropium (Ipratropium-Albuterol 3 Ml Neb) 3 ml INHALATION RT-QID [facility] Last Admin: 10/02/22 07:24 Dose: 3 ml Atorvastatin Calcium (Atorvastatin 40 Mg Tab) 40 mg PO HS [facility] Last Admin: 10/01/22 20:10 Dose: 40 mg Citalopram Hydrobromide (Citalopram Hydrobromide 20 Mg Tab) 40 mg PO DAILY [facility] Last Admin: 10/01/22 09:08 Dose: 40 mg Cyclobenzaprine HCl (Cyclobenzaprine 10 Mg Tab) 10 mg PO TID PRN PRN Reason: Muscle Pain Dextrose/Water (Dextrose 50% Syringe 50 Ml) 25 ml IVP PER PROTOCOL PRN; Protocol PRN Reason: Hypoglycemia Dextrose/Water (Dextrose 50% Syringe 50 Ml) 50 ml IVP PER PROTOCOL PRN; Protocol PRN Reason: Hypoglycemia Dicyclomine HCl (Dicyclomine 10 Mg Cap) 10 mg PO TID [facility] Last Admin: 10/01/22 20:10 Dose: 10 mg Ferrous Sulfate (Ferrous Sulfate 325 Mg Tab) 325 mg PO BID [facility] Last Admin: 10/01/22 20:10 Dose: 325 mg Guaifenesin/Codeine Phosphate (Guaifenesin-Coden 100-10mg/5ml 10 Ml Cup) 10 ml PO TID PRN PRN Reason: Cough Last Admin: 10/01/22 20:20 Dose: 10 ml Sodium Chloride (Saline 0.9%) 1,000 mls @ 100 mls/hr IV .Q10H [facility] Last Admin: 10/02/22 06:10 Dose: 100 mls/hr Insulin Aspart (Insulin Aspart (Novolog) 100 Unit/Ml Vial) 0 unit SQ [facility]; Protocol Last Admin: 10/02/22 06:05 Dose: Not Given Levothyroxine Sodium (Levothyroxine 137 Mcg Tab) 137 mcg PO DAILY@0630 [facility] Last Admin: 10/02/22 06:10 Dose: 137 mcg Loratadine (Loratadine 10 Mg Tab) 10 mg PO [facility] Last Admin: 10/01/22 20:10 Dose: 10 mg Methylprednisolone Sodium Succinate (Methylprednisolone Sod Succi 125 Mg/2 Ml Vial) 60 mg IV Q6HR [facility] Last Admin: 10/02/22 06:10 Dose: 60 mg Metoprolol Tartrate (Metoprolol Tartrate 25 Mg Tab) 37.5 mg PO DAILY [facility] Last Admin: 10/01/22 09:08 Dose: 37.5 mg Naloxone HCl (Naloxone 0.4 Mg/Ml 1 Ml Vial) 0.2 mg IV Q2M PRN PRN Reason: Opioid Reversal Non-Formulary Medication (Dulaglutide [Trulicity]) 0.75 mg SQ [facility] Ondansetron HCl (Ondansetron 4 Mg/2 Ml Vial) 4 mg IVP Q8HR PRN PRN Reason: Nausea And Vomiting Quetiapine Fumarate (Quetiapine 100 Mg Tab) 100 mg PO [facility] Last Admin: 10/01/22 20:20 Dose: 100 mg Sucralfate (Sucralfate 1 Gm Tab) 1 gm PO ACHS [facility] Last Admin: 10/02/22 06:10 Dose: 1 gm Physical exam: Gen: This is a 61-year-old female who is awake, alert and oriented 3, well- developed, well-nourished, obese HEENT: Head is atraumatic, normocephalic. Pupils equal, round. Sclerae is anic teric. NECK: Supple. No JVD. No lymphadenopathy. No thyromegaly. LUNGS: Diminished breath sounds bilaterally with some scattered rhonchi and expiratory wheezing noted. No intercostal retractions. HEART: S1, S2 are muffled ABDOMEN: Soft. Obese. Bowel sounds are present. No masses. No tenderness. EXTREMITIES: No pedal edema. No calf tenderness. NEUROLOGICAL: Patient is awake, alert and oriented x3. Cranial nerves 2 through 12 are grossly intact. Assessment: Influenza Chronic anemia history of ITP Hypertension Lactic acidosis, improved Nonalcoholic steatohepatitis Status post aortic valve replacement history Prophylaxis DVT prophylaxis Full code Plan: Recommend continue current medications and management with pulmonary following. She is continued on 2 L via nasal cannula recommend to wean FiO2 as tolerated. Recommend continue with breathing treatments and patient is maintained on IV steroids. Recommend Accu-Cheks before meals and at bedtime and close monitoring and continue sliding scale Encouraged increase activity as tolerated and encouraged oral intake Will discuss with pulmonary about discharge planning Possible discharge in the next 24-48 hours. The impression and plan of care has been dictated by Mouna Kaiser, Nurse Practitioner as directed. Dr. Marian MD I have performed a history and examination and MDM of this patient, discussed the same with the dictator, and agree with the dictator's assessment and plan as written ,documented as a scribe. Based on total visit time, I have performed more than 50% of the visit. Objective - Vital Signs Vital signs: Vital Signs Temp 97.6 F 10/02/22 04:00 Pulse 90 10/02/22 07:37 Resp 20 10/02/22 04:00 BP 101/53 10/02/22 04:00 Pulse Ox 95 10/02/22 07:27 FiO2 Intake & Output 10/01/22 10/02/22 10/02/22 18:59 06:59 18:59 Intake Total 657 Balance 657 Intake: Oral 657 Other: Voiding Method Toilet # Voids 2 - Labs CBC & Chem 7: 10/02/22 07:43 10/02/22 07:43 Labs: Abnormal Lab Results - Last 24 Hours (Table) 10/01/22 10/01/22 10/01/22 Range/Units 08:50 12:22 12:23 WBC (3.8-10.6) k/uL RBC (3.80-5.40) m/uL Hgb (11.4-16.0) gm/dL Hct (34.0-46.0) % Plt Count (150-450) k/uL Chloride (98-107) mmol/L Carbon Dioxide (22-30) mmol/L Glucose (74-99) mg/dL POC Glucose (mg/dL) 155 H (70-110) mg/dL Plasma Lactic Acid Norm 3.6 H* 3.5 H* (0.7-2.0) mmol/L Calcium (8.4-10.2) mg/dL Total Bilirubin (0.2-1.3) mg/dL AST (14-36) U/L Albumin (3.5-5.0) g/dL 10/01/22 10/01/22 10/01/22 Range/Units 15:38 16:47 18:28 WBC (3.8-10.6) k/uL RBC (3.80-5.40) m/uL Hgb (11.4-16.0) gm/dL Hct (34.0-46.0) % Plt Count (150-450) k/uL Chloride (98-107) mmol/L Carbon Dioxide (22-30) mmol/L Glucose (74-99) mg/dL POC Glucose (mg/dL) 201 H (70-110) mg/dL Plasma Lactic Acid Norm 3.7 H* 5.0 H* (0.7-2.0) mmol/L Calcium (8.4-10.2) mg/dL Total Bilirubin (0.2-1.3) mg/dL AST (14-36) U/L Albumin (3.5-5.0) g/dL 10/01/22 10/01/22 10/02/22 Range/Units 20:15 21:19 00:31 WBC (3.8-10.6) k/uL RBC (3.80-5.40) m/uL Hgb (11.4-16.0) gm/dL Hct (34.0-46.0) % Plt Count (150-450) k/uL Chloride (98-107) mmol/L Carbon Dioxide (22-30) mmol/L Glucose (74-99) mg/dL POC Glucose (mg/dL) 234 H (70-110) mg/dL Plasma Lactic Acid Norm 3.7 H* 2.6 H* (0.7-2.0) mmol/L Calcium (8.4-10.2) mg/dL Total Bilirubin (0.2-1.3) mg/dL AST (14-36) U/L Albumin (3.5-5.0) g/dL 10/02/22 10/02/22 10/02/22 Range/Units 06:02 07:43 07:43 WBC 3.0 L (3.8-10.6) k/uL RBC 3.05 L (3.80-5.40) m/uL Hgb 9.5 L (11.4-16.0) gm/dL Hct 29.9 L (34.0-46.0) % Plt Count 53 L (150-450) k/uL Chloride 116 H (98-107) mmol/L Carbon Dioxide 19 L (22-30) mmol/L Glucose 153 H (74-99) mg/dL POC Glucose (mg/dL) 149 H (70-110) mg/dL Plasma Lactic Acid Norm (0.7-2.0) mmol/L Calcium 7.7 L (8.4-10.2) mg/dL Total Bilirubin 1.5 H (0.2-1.3) mg/dL AST 63 H (14-36) U/L Albumin 2.8 L (3.5-5.0) g/dL Microbiology - Last 24 Hours (Table) 09/30/22 22:35 Blood Culture - Preliminary Blood No Growth after 24 hours
[2022-10-03 06:44] LABS: Glucose,Whole Blood 174 mg/dL (70-110)
[2022-10-03] MEDS: SUCRALFATE 1 GM TAB PO SCH ×4 (06:54→20:13)
[2022-10-03] MEDS: LEVOTHYROXINE 137 MCG TAB PO SCH (06:54)
[2022-10-03] MEDS: INSULIN ASPART (NovoLOG) 100 UNIT/ML VIAL SQ SCH ×4 (06:55→20:15)
[2022-10-03] MEDS: IPRATROPIUM-ALBUTEROL 3 ML NEB INHALATION SCH ×4 (07:53→20:53)
[2022-10-03] MEDS: FERROUS SULFATE 325 MG TAB PO SCH ×2 (08:28→20:14)
[2022-10-03] MEDS: DICYCLOMINE 10 MG CAP PO SCH ×3 (08:28→22:36)
[2022-10-03] MEDS: METOPROLOL TARTRATE 25 MG TAB PO SCH (08:28)
[2022-10-03] MEDS: Dulaglutide [Trulicity] 0.75 MG/0.5 ML Each SQ SCH ×2 (08:29→17:38)
[2022-10-03] MEDS: CITALOPRAM HYDROBROMIDE 20 MG TAB PO SCH (08:29)
--- NOTE | 2022-10-03 09:39 | XR ---
EXAMINATION TYPE: XR chest 1V portable DATE OF EXAM: 10/03/2022 9:27 AM COMPARISON: Chest radiographs from 09/21/2022 TECHNIQUE: XR chest 1V portable Portable AP radiograph of the chest. CLINICAL INDICATION:Female, 61 years old with history of shortness of breath; FINDINGS: Lungs/Pleura: Low lung volumes are present. There is no evidence of pleural effusion, focal consolida tion, or pneumothorax. Pulmonary vascularity: Unremarkable. Heart/mediastinum: Cardiomediastinal silhouette is enlarged and stable. Musculoskeletal: No acute osseous pathology. Midline sternotomy wires are noted. IMPRESSION: Low lung volumes with a generalized hazy appearance which could represent atelectasis versus pulmonar y edema correlate with serum BNP.
[2022-10-03] MEDS ORDERED: FUROSEMIDE 10 MG/ML 4 ML VIAL IV STA (11:03)
--- NOTE | 2022-10-03 11:29 | P.PN ---
Subjective Progress Note Date: 10/03/22 Principal diagnosis: Cough and shortness of breath. 61-year-old female who presented to the emergency department on September 30, complaining of shortness of breath. The patient hasn't been feeling well for about 2 weeks. The patient came into the ER, because over the last couple of days, her symptoms progressed. She was coughing, wheezing, and very short of breath. Apparently tested positive for influenza A. We see her in the emergency room, room 26. She is on room air. She's not receiving any IV fluids. The patient has a history of atrial fibrillation, CHF, diabetes, GERD, hyperlipidemia, hypertension, osteoarthritis, fatty liver, and sleep apnea, among other things. White count 2, hemoglobin 10.4, hematocrit 31.3, and platelet count 71,000 PT 15.4, INR 1.5, and PTT is 31.9. Sodium 136, potassium 4.3, chlorides 109, CO2 20, BUN 11, creatinine 0.65. Lactic acid was 2.7, repeat was 3.5. Calcium 7.8. Troponin 0.167. Urine was negative. Influenza A studies were positive. Chest x-ray, and our opinion, was essentially normal. The patient is seen today 10/02/2022 in follow-up on the selective care unit. She is currently resting comfortably in bed. Awake and alert in no acute distress. She is still quite fatigued. She is still congested and coughing. She is maintaining O2 saturations in the 90s on 2 L/m per nasal cannula. Normal saline at 100 ML's per hour. She is recovering from influenza A. Blood cultures reveal no growth. White count 3.0. Hemoglobin 9.5. Platelets 53,000. Sodium 140. Potassium 4.4. Bicarb 19. BUN 16. Creatinine 0.54. Glucose 153. She is continued on DuoNeb inhalations, IV Solu-Medrol. Progress note dated 10/03/2022. 61-year-old female admitted with a diagnosis of influenza A. The patient was quite bronchospastic when she was initially seen in the emergency room. She is a bit improved today, but still short of breath. She is on room air. Saturations are 93%. She's getting saline at 100 mL an hour. We placed her on corticosteroids, and breathing treatments, and we are hopeful for discharge in the next 24-48 hours. Laboratory data today includes a glucose of 174. Objective - Vital Signs Vital signs: Vital Signs Temp 97.4 F L 10/03/22 08:00 Pulse 90 10/03/22 11:10 Resp 20 10/03/22 11:19 BP 136/69 10/03/22 08:00 Pulse Ox 93 L 10/03/22 08:00 FiO2 Intake & Output 10/02/22 10/03/22 10/03/22 18:59 06:59 18:59 Output Total 1100 Balance -1100 Weight 113 kg Output: Urine 1100 Other: Voiding Method Toilet Toilet Toilet Bedside Commode Bedside Commode # Voids 1 4 2 # Bowel Movements 0 - Exam No acute distress, oriented 3. No conversational dyspnea or use of accessory muscles. HEENT examination is grossly unremarkable. Neck supple. Full range of motion. No adenopathy thyromegaly or neck vein distention. Cardiovascular examination reveals regular rhythm rate. S1-S2 normal. No S3 or S4. No discernible murmur noted. Heart rate 90 bpm. Lungs reveal coarse bilateral inspiratory and expiratory wheezes and rhonchi. No crackles. Breath sounds are equal bilaterally. She coughs with inspiration. Saturations are 93% on room air. Abdomen soft bowel sounds are heard. No masses or tenderness. Extremities are intact. No cyanosis clubbing or edema. Skin is without rash or lesion. Neurologic examination is brief but nonfocal. - Labs CBC & Chem 7: 10/02/22 07:43 10/02/22 07:43 Labs: Abnormal Lab Results - Last 24 Hours (Table) 10/02/22 10/02/22 10/02/22 Range/Units 11:34 17:02 21:04 POC Glucose (mg/dL) 228 H 208 H 261 H (70-110) mg/dL 10/03/22 Range/Units 06:41 POC Glucose (mg/dL) 174 H (70-110) mg/dL Microbiology - Last 24 Hours (Table) 09/30/22 22:35 Blood Culture - Preliminary Blood No Growth after 48 hours Assessment and Plan Assessment: Acute bronchospasm and bronchial inflammation, likely triggered by influenza A infection. History of atrial fibrillation. History of valvular heart disease with valve replacement. History of heart failure. History of diabetes mellitus. Gastroesophageal reflux disease. Hyperlipidemia. Hypertension. History of sleep apnea syndrome. History of hypothyroidism. Obesity. Multiple other medical problems and comorbidities. Plan: Plan dated 10/01/2022. The patient was seen in the emergency department. We gave the patient Solu- Medrol 60 mg every 6 hours for her bronchial inflammation and bronchospasm. The patient is also getting breathing treatments. Additional recommendations and suggestions are forthcoming. Hopeful discharge soon. Labs, x-rays, and medications are reviewed. Because she's been sick for 2 weeks, Tamiflu is probably not indicated. Plan dated 10/03/2022. The patient continues on appropriate medications. We better and ready for discharge by the morning. She remains on corticosteroids, breathing treatments, and we added Symbicort as well. Labs, x-rays, and medications are reviewed. Prognosis is guarded. We will continue to follow make recommendations along the way. Time with Patient: Less than 30
[2022-10-03 11:32] LABS: Glucose,Whole Blood 269 mg/dL (70-110)
--- NOTE | 2022-10-03 15:32 | P.PN ---
Subjective Progress Note Date: 10/03/22 This is 61-year-old white female with history of depression and bipolar disorder who has history of GI bleed in the past who came in after two-week history of worsening sickness. The patient states upper respiratory congestion. The patient supposedly has had transfusion in about 3-4 months ago due to GI bleed with cauterization. Question element of AV malformation. The patient is new to me. She is nonsmoker. No known sick contacts are stated. She is resting comfortably in her stretcher today. She is a nonsmoker. 10/02/2022 Patient is seen and evaluated and follow-up covering for Dr. Alvin Hartley and patient coming in with worsening generalized weakness and upper respiratory congestion. Pulmonary is following and patient was continued on breathing treatments along with IV steroids and being treated for acute flu. Last reviewed and stable. Patient is continued on 2 L nasal cannula with continued congestion and cough. Patient denies chest pain or palpitations. Patient has been up to the bathroom. No reports of nausea or vomiting noted. Wean FiO2 as tolerated. 10/03/2022 She is seen and evaluated in follow-up today with pulmonary following. Patient is maintained on room air maintaining 92-93%. Blood sugars mildly elevated and will continue with current regimen. Patient is continued on IV Solu-Medrol at 60 mg every 6 along with DuoNeb treatments. We'll obtain a chest x-ray today. Patient is currently afebrile denies chest pain or palpitations. Patient continues to have a cough with generalized fatigue and dyspnea with exertion and encourage the patient to increase activity as tolerated. Encourage oral intake and will discuss possible discharge in the next 24-48 hours Review of systems: Constitutional: reports of fatigue, no fever, or chills Cardiovascular: No reports of chest pain or palpitations Respiratory: No reports of worsening shortness of breath and continues with cough GI: No reports of nausea, vomiting, or diarrhea : No reports of dysuria or retention Neurovascular: reports of generalized weakness and not feeling well All medications have been reviewed Active Medications Acetaminophen (Acetaminophen Tab 325 Mg Tab) 650 mg PO Q6HR PRN PRN Reason: Mild Pain or Fever > 100.5 Last Admin: 10/03/22 02:25 Dose: 650 mg Hydrocodone Bitart/Acetaminophen (Hydrocodone/Apap 5-325mg 1 Each Tab) 1 each PO Q4H PRN PRN Reason: Pain Albuterol/Ipratropium (Ipratropium-Albuterol 3 Ml Neb) 3 ml INHALATION RT-QID [facility] Last Admin: 10/03/22 07:53 Dose: 3 ml Atorvastatin Calcium (Atorvastatin 40 Mg Tab) 40 mg PO HS [facility] Last Admin: 10/02/22 22:16 Dose: 40 mg Budesonide/Formoterol Fumarate (Symbicort 160-4.5 Mcg Inhaler) 2 puff INHALATION RT-BID [facility] Citalopram Hydrobromide (Citalopram Hydrobromide 20 Mg Tab) 40 mg PO DAILY [facility] Last Admin: 10/03/22 08:29 Dose: 40 mg Cyclobenzaprine HCl (Cyclobenzaprine 10 Mg Tab) 10 mg PO TID PRN PRN Reason: Muscle Pain Dextrose/Water (Dextrose 50% Syringe 50 Ml) 25 ml IVP PER PROTOCOL PRN; Protocol PRN Reason: Hypoglycemia Dextrose/Water (Dextrose 50% Syringe 50 Ml) 50 ml IVP PER PROTOCOL PRN; Protocol PRN Reason: Hypoglycemia Dicyclomine HCl (Dicyclomine 10 Mg Cap) 10 mg PO TID [facility] Last Admin: 10/03/22 08:28 Dose: 10 mg Ferrous Sulfate (Ferrous Sulfate 325 Mg Tab) 325 mg PO BID [facility] Last Admin: 10/03/22 08:28 Dose: 325 mg Guaifenesin/Codeine Phosphate (Guaifenesin-Coden 100-10mg/5ml 10 Ml Cup) 10 ml PO TID PRN PRN Reason: Cough Last Admin: 10/03/22 02:25 Dose: 10 ml Sodium Chloride (Saline 0.9%) 1,000 mls @ 100 mls/hr IV .Q10H [facility] Last Admin: 10/03/22 08:30 Dose: 100 mls/hr Insulin Aspart (Insulin Aspart (Novolog) 100 Unit/Ml Vial) 0 unit SQ ACHS [facility]; Protocol Last Admin: 10/03/22 06:55 Dose: 2 unit Levothyroxine Sodium (Levothyroxine 137 Mcg Tab) 137 mcg PO DAILY@0630 [facility] Last Admin: 10/03/22 06:54 Dose: 137 mcg Loratadine (Loratadine 10 Mg Tab) 10 mg PO HS [facility] Last Admin: 10/02/22 22:16 Dose: 10 mg Methylprednisolone Sodium Succinate (Methylprednisolone Sod Succi 125 Mg/2 Ml Vial) 60 mg IV Q6HR [facility] Last Admin: 10/03/22 06:54 Dose: 60 mg Metoprolol Tartrate (Metoprolol Tartrate 25 Mg Tab) 37.5 mg PO DAILY [facility] Last Admin: 10/03/22 08:28 Dose: 37.5 mg Naloxone HCl (Naloxone 0.4 Mg/Ml 1 Ml Vial) 0.2 mg IV Q2M PRN PRN Reason: Opioid Reversal Non-Formulary Medication (Dulaglutide [Trulicity]) 0.75 mg SQ [facility]ATA [facility] Last Admin: 10/03/22 08:29 Dose: Not Given Ondansetron HCl (Ondansetron 4 Mg/2 Ml Vial) 4 mg IVP Q8HR PRN PRN Reason: Nausea And Vomiting Quetiapine Fumarate (Quetiapine 100 Mg Tab) 100 mg PO HS [facility] Last Admin: 10/02/22 22:16 Dose: 100 mg Sucralfate (Sucralfate 1 Gm Tab) 1 gm PO ACHS [facility] Last Admin: 10/03/22 06:54 Dose: 1 gm Physical exam: Gen: This is a 61-year-old female who is awake, alert and oriented 3, well-d eveloped, well-nourished, obese HEENT: Head is atraumatic, normocephalic. Pupils equal, round. Sclerae is anicteric. NECK: Supple. No JVD. No lymphadenopathy. No thyromegaly. LUNGS: Diminished breath sounds bilaterally with some scattered rhonchi and expiratory wheezing noted. No intercostal retractions. HEART: S1, S2 are muffled ABDOMEN: Soft. Obese. Bowel sounds are present. No masses. No tenderness. EXTREMITIES: No pedal edema. No calf tenderness. NEUROLOGICAL: Patient is awake, alert and oriented x3. Cranial nerves 2 through 12 are grossly intact. Assessment: Influenza Chronic anemia history of ITP Hypertension Lactic acidosis, improved Nonalcoholic steatohepatitis Status post aortic valve replacement history Prophylaxis DVT prophylaxis Full code Plan: Recommend continue current medications and management with pulmonary following. She is continued on 2 L via nasal cannula as needed and is currently 93% on room air while at rest. recommend to wean FiO2 as tolerated. Recommend continue with breathing treatments and patient is maintained on IV steroids. Transition to oral prednisone taper on discharge. Recommend Accu-Cheks before meals and at bedtime and close monitoring and continue sliding scale Encouraged increase activity as tolerated and encouraged oral intake Chest x-ray obtained today shows low lung volumes with a generalized hazy appearance which could represent atelectasis versus pulmonary edema and will give a dose of IV Lasix Possible discharge in the next 24 hours. The impression and plan of care has been dictated by Mouna Kaiser, Nurse Practitioner as directed. Dr. Marian MD I have performed a history and examination and MDM of this patient, discussed the same with the dictator, and agree with the dictator's assessment and plan as written ,documented as a scribe. Based on total visit time, I have performed more than 50% of the visit. Objective - Vital Signs Vital signs: Vital Signs Temp 97.4 F L 10/03/22 08:00 Pulse 88 10/03/22 08:04 Resp 16 10/03/22 08:04 BP 136/69 10/03/22 08:00 Pulse Ox 93 L 10/03/22 08:00 FiO2 Intake & Output 10/02/22 10/03/22 10/03/22 18:59 06:59 18:59 Output Total 1100 Balance -1100 Weight 113 kg Output: Urine 1100 Other: Voiding Method Toilet Toilet Bedside Commode # Voids 1 4 # Bowel Movements 0 - Labs CBC & Chem 7: 10/02/22 07:43 10/02/22 07:43 Labs: Abnormal Lab Results - Last 24 Hours (Table) 10/02/22 10/02/22 10/02/22 Range/Units 11:34 17:02 21:04 POC Glucose (mg/dL) 228 H 208 H 261 H (70-110) mg/dL 10/03/22 Range/Units 06:41 POC Glucose (mg/dL) 174 H (70-110) mg/dL Microbiology - Last 24 Hours (Table) 09/30/22 22:35 Blood Culture - Preliminary Blood No Growth after 48 hours
[2022-10-03] MEDS: HYDROcodone/APAP 5-325MG 1 EACH TAB PO PRN (17:00)
[2022-10-03 17:21] LABS: Glucose,Whole Blood 392 mg/dL (70-110)
[2022-10-03 19:56] LABS: Glucose,Whole Blood 348 mg/dL (70-110)
[2022-10-03] MEDS: LORATADINE 10 MG TAB PO SCH (20:13)
[2022-10-03] MEDS: ATORVASTATIN 40 MG TAB PO SCH (20:13)
[2022-10-03] MEDS: QUEtiapine 100 MG TAB PO SCH (20:14)
[2022-10-03] MEDS: SYMBICORT 160-4.5 MCG INHALER INHALATION SCH (20:53)
[2022-10-04] MEDS: methylPREDNISolone SOD SUCCI 125 MG/2 ML VIAL IV SCH ×5 (00:18→23:52)
[2022-10-04] MEDS: guaiFENesin-Coden 100-10MG/5ML 10 ML CUP PO PRN ×3 (02:26→17:22)
[2022-10-04] MEDS: ACETAMINOPHEN TAB 325 MG TAB PO PRN (06:07)
[2022-10-04] MEDS: LEVOTHYROXINE 137 MCG TAB PO SCH (06:07)
[2022-10-04 06:16] LABS: Glucose,Whole Blood 183 mg/dL (70-110)
[2022-10-04] MEDS: INSULIN ASPART (NovoLOG) 100 UNIT/ML VIAL SQ SCH ×4 (06:30→21:43)
[2022-10-04] MEDS: SUCRALFATE 1 GM TAB PO SCH ×4 (06:30→21:43)
[2022-10-04] MEDS: IPRATROPIUM-ALBUTEROL 3 ML NEB INHALATION SCH ×4 (08:53→22:05)
[2022-10-04] MEDS: SYMBICORT 160-4.5 MCG INHALER INHALATION SCH ×2 (08:53→22:06)
[2022-10-04] MEDS: METOPROLOL TARTRATE 25 MG TAB PO SCH (09:40)
[2022-10-04] MEDS: CITALOPRAM HYDROBROMIDE 20 MG TAB PO SCH (09:40)
[2022-10-04] MEDS: FERROUS SULFATE 325 MG TAB PO SCH ×2 (09:41→21:42)
[2022-10-04] MEDS: DICYCLOMINE 10 MG CAP PO SCH ×3 (09:41→21:42)
[2022-10-04] MEDS ORDERED: FUROSEMIDE 10 MG/ML 4 ML VIAL IV STA ×2 (10:44)
[2022-10-04] MEDS ORDERED: MAGNESIUM SULFATE-D5W PMX 1 GM in DEXTROSE/WATER 1 100ML.BAG IVPB ONE (11:00)
[2022-10-04 11:18] LABS: Glucose,Whole Blood 303 mg/dL (70-110)
--- NOTE | 2022-10-04 14:25 | P.PN ---
Subjective Progress Note Date: 10/04/22 This is 61-year-old white female with history of depression and bipolar disorder who has history of GI bleed in the past who came in after two-week history of worsening sickness. The patient states upper respiratory congestion. The patient supposedly has had transfusion in about 3-4 months ago due to GI bleed with cauterization. Question element of AV malformation. The patient is new to me. She is nonsmoker. No known sick contacts are stated. She is resting comfortably in her stretcher today. She is a nonsmoker. 10/02/2022 Patient is seen and evaluated and follow-up covering for Dr. Alvin Hartley and patient coming in with worsening generalized weakness and upper respiratory congestion. Pulmonary is following and patient was continued on breathing treatments along with IV steroids and being treated for acute flu. Last reviewed and stable. Patient is continued on 2 L nasal cannula with continued congestion and cough. Patient denies chest pain or palpitations. Patient has been up to the bathroom. No reports of nausea or vomiting noted. Wean FiO2 as tolerated. 10/03/2022 She is seen and evaluated in follow-up today with pulmonary following. Patient is maintained on room air maintaining 92-93%. Blood sugars mildly elevated and will continue with current regimen. Patient is continued on IV Solu-Medrol at 60 mg every 6 along with DuoNeb treatments. We'll obtain a chest x-ray today. Patient is currently afebrile denies chest pain or palpitations. Patient continues to have a cough with generalized fatigue and dyspnea with exertion and encourage the patient to increase activity as tolerated. Encourage oral intake and will discuss possible discharge in the next 24-48 hours 10/04/2022 Patient is seen and evaluated and follow-up with pulmonary following. Patient has been maintained on IV steroids and continues to be short of breath with minimal exertion. Patient requiring 2-3 L via nasal cannula reports she does not normally wear oxygen the outpatient setting. Chest x-ray from yesterday showed atelectasis versus pulmonary edema and was given a dose of Lasix. Patient will be given a dose of Lasix today. Patient reports she has been urinating more frequently since the last dose. Repeat BNP today is 1020 magnesium is 1.7. Blood sugars are elevated and maintained on sliding scale and will add low-dose long-acting given the steroids. Recommend Accu-Cheks before meals and at bedtime and close monitoring. Patient is afebrile denies chest pain or palpitations. Patient continues to report shortness of breath and difficulty in breathing. Patient denies nausea or vomiting and tolerating diet. Review of systems: Constitutional: reports of fatigue, no fever, or chills Cardiovascular: No reports of chest pain or palpitations Respiratory: reports of continued shortness of breath and continues with cough GI: No reports of nausea, vomiting, or diarrhea : No reports of dysuria or retention Neurovascular: reports of generalized weakness and not feeling well All medications have been reviewed Active Medications Acetaminophen (Acetaminophen Tab 325 Mg Tab) 650 mg PO Q6HR PRN PRN Reason: Mild Pain or Fever > 100.5 Last Admin: 10/04/22 06:07 Dose: 650 mg Hydrocodone Bitart/Acetaminophen (Hydrocodone/Apap 5-325mg 1 Each Tab) 1 each PO Q4H PRN PRN Reason: Pain Last Admin: 10/03/22 17:00 Dose: 1 each Albuterol/Ipratropium (Ipratropium-Albuterol 3 Ml Neb) 3 ml INHALATION RT-QID [facility] Last Admin: 10/04/22 12:20 Dose: 3 ml Atorvastatin Calcium (Atorvastatin 40 Mg Tab) 40 mg PO HS [facility] Last Admin: 10/03/22 20:13 Dose: 40 mg Budesonide/Formoterol Fumarate (Symbicort 160-4.5 Mcg Inhaler) 2 puff INHALATION RT-BID [facility] Last Admin: 10/04/22 08:53 Dose: 2 puff Citalopram Hydrobromide (Citalopram Hydrobromide 20 Mg Tab) 40 mg PO DAILY [facility] Last Admin: 10/04/22 09:40 Dose: 40 mg Cyclobenzaprine HCl (Cyclobenzaprine 10 Mg Tab) 10 mg PO TID PRN PRN Reason: Muscle Pain Dextrose/Water (Dextrose 50% Syringe 50 Ml) 25 ml IVP PER PROTOCOL PRN; Protocol PRN Reason: Hypoglycemia Dextrose/Water (Dextrose 50% Syringe 50 Ml) 50 ml IVP PER PROTOCOL PRN; Protocol PRN Reason: Hypoglycemia Dicyclomine HCl (Dicyclomine 10 Mg Cap) 10 mg PO TID [facility] Last Admin: 10/04/22 09:41 Dose: 10 mg Ferrous Sulfate (Ferrous Sulfate 325 Mg Tab) 325 mg PO BID [facility] Last Admin: 10/04/22 09:41 Dose: 325 mg Guaifenesin/Codeine Phosphate (Guaifenesin-Coden 100-10mg/5ml 10 Ml Cup) 10 ml PO TID PRN PRN Reason: Cough Last Admin: 10/04/22 09:46 Dose: 10 ml Insulin Aspart (Insulin Aspart (Novolog) 100 Unit/Ml Vial) 0 unit SQ [facility]; Protocol Last Admin: 10/04/22 12:25 Dose: 8 unit Levothyroxine Sodium (Levothyroxine 137 Mcg Tab) 137 mcg PO DAILY@0630 [facility] Last Admin: 10/04/22 06:07 Dose: 137 mcg Loratadine (Loratadine 10 Mg Tab) 10 mg PO [facility] Last Admin: 10/03/22 20:13 Dose: 10 mg Methylprednisolone Sodium Succinate (Methylprednisolone Sod Succi 125 Mg/2 Ml Vial) 60 mg IV Q6HR [facility] Last Admin: 10/04/22 12:25 Dose: 60 mg Metoprolol Tartrate (Metoprolol Tartrate 25 Mg Tab) 37.5 mg PO DAILY [facility] Last Admin: 10/04/22 09:40 Dose: 37.5 mg Naloxone HCl (Naloxone 0.4 Mg/Ml 1 Ml Vial) 0.2 mg IV Q2M PRN PRN Reason: Opioid Reversal Dulaglutide [ Trulicity] 0.75 Mg/0 .5 Ml Each 0.75 mg SQ [facility] Last Admin: 10/03/22 17:38 Dose: 0.75 mg Ondansetron HCl (Ondansetron 4 Mg/2 Ml Vial) 4 mg IVP Q8HR PRN PRN Reason: Nausea And Vomiting Quetiapine Fumarate (Quetiapine 100 Mg Tab) 100 mg PO [facility] Last Admin: 10/03/22 20:14 Dose: 100 mg Sucralfate (Sucralfate 1 Gm Tab) 1 gm PO [facility] Last Admin: 10/04/22 12:25 Dose: 1 gm Physical exam: Gen: This is a 61-year-old female who is awake, alert and oriented 3, well- developed, well-nourished, obese HEENT: Head is atraumatic, normocephalic. Pupils equal, round. Sclerae is anicteric. NECK: Supple. No JVD. No lymphadenopathy. No thyromegaly. LUNGS: Diminished breath sounds bilaterally with some scattered rhonchi and expiratory wheezing noted. No intercostal retractions. HEART: S1, S2 are muffled ABDOMEN: Soft. Obese. Bowel sounds are present. No masses. No tenderness. EXTREMITIES: No pedal edema. No calf tenderness. NEUROLOGICAL: Patient is awake, alert and oriented x3. Cranial nerves 2 through 12 are grossly intact. Assessment: Influenza Chronic anemia history of ITP Hypertension Lactic acidosis, improved Nonalcoholic steatohepatitis Status post aortic valve replacement history Prophylaxis DVT prophylaxis Full code Plan: Recommend continue current medications and management with pulmonary following. She is continued on 2 L via nasal cannula as needed and is requiring it with increased shortness of breath today. Patient was given a dose of Lasix yesterday and today and BNP is elevated. Patient had been attempting to wean oxygen although oxygen saturations are dropping and patient is dyspneic. recommend to wean FiO2 as tolerated. Recommend continue with breathing treatments and patient is maintained on IV steroids. Transition to oral prednisone taper on discharge. Recommend Accu-Cheks before meals and at bedtime and close monitoring and continue sliding scale, blood sugars elevated will add low-dose long-acting as well Encouraged increase activity as tolerated and encouraged oral intake Due to multiple complex medical issues, prognosis is guarded The impression and plan of care has been dictated by Mouna Kaiser, Nurse Practitioner as directed. Dr. Erik MD I have performed a history and examination and MDM of this patient, discussed the same with the dictator, and agree with the dictator's assessment and plan as written ,documented as a scribe. Based on total visit time, I have performed more than 50% of the visit. Objective - Vital Signs Vital signs: Vital Signs Temp 98.4 F 10/04/22 08:00 Pulse 92 10/04/22 12:29 Resp 22 10/04/22 08:00 BP 136/63 10/04/22 08:00 Pulse Ox 94 L 10/04/22 08:00 FiO2 Intake & Output 10/03/22 10/04/22 10/04/22 18:59 06:59 18:59 Intake Total 200 Balance 200 Weight 102 kg Intake: Oral 200 Other: Voiding Method Toilet Toilet Bedside Commode Bedside Commode # Voids 5 4 - Labs CBC & Chem 7: 10/02/22 07:43 10/02/22 07:43 Labs: Abnormal Lab Results - Last 24 Hours (Table) 10/03/22 10/03/22 10/04/22 Range/Units 17:20 19:55 06:14 POC Glucose (mg/dL) 392 H 348 H 183 H (70-110) mg/dL 10/04/22 Range/Units 11:16 POC Glucose (mg/dL) 303 H (70-110) mg/dL Microbiology - Last 24 Hours (Table) 09/30/22 22:35 Blood Culture - Preliminary Blood No Growth after 72 hours
--- NOTE | 2022-10-04 14:28 | P.PN ---
Subjective Progress Note Date: 10/04/22 Principal diagnosis: Cough and shortness of breath. 61-year-old female who presented to the emergency department on September 30, complaining of shortness of breath. The patient hasn't been feeling well for about 2 weeks. The patient came into the ER, because over the last couple of days, her symptoms progressed. She was coughing, wheezing, and very short of breath. Apparently tested positive for influenza A. We see her in the emergency room, room 26. She is on room air. She's not receiving any IV fluids. The patient has a history of atrial fibrillation, CHF, diabetes, GERD, hyperlipidemia, hypertension, osteoarthritis, fatty liver, and sleep apnea, among other things. White count 2, hemoglobin 10.4, hematocrit 31.3, and platelet count 71,000 PT 15.4, INR 1.5, and PTT is 31.9. Sodium 136, potassium 4.3, chlorides 109, CO2 20, BUN 11, creatinine 0.65. Lactic acid was 2.7, repeat was 3.5. Calcium 7.8. Troponin 0.167. Urine was negative. Influenza A studies were positive. Chest x-ray, and our opinion, was essentially normal. The patient is seen today 10/02/2022 in follow-up on the selective care unit. She is currently resting comfortably in bed. Awake and alert in no acute distress. She is still quite fatigued. She is still congested and coughing. She is maintaining O2 saturations in the 90s on 2 L/m per nasal cannula. Normal saline at 100 ML's per hour. She is recovering from influenza A. Blood cultures reveal no growth. White count 3.0. Hemoglobin 9.5. Platelets 53,000. Sodium 140. Potassium 4.4. Bicarb 19. BUN 16. Creatinine 0.54. Glucose 153. She is continued on DuoNeb inhalations, IV Solu-Medrol. Progress note dated 10/03/2022. 61-year-old female admitted with a diagnosis of influenza A. The patient was quite bronchospastic when she was initially seen in the emergency room. She is a bit improved today, but still short of breath. She is on room air. Saturations are 93%. She's getting saline at 100 mL an hour. We placed her on corticosteroids, and breathing treatments, and we are hopeful for discharge in the next 24-48 hours. Laboratory data today includes a glucose of 174. Progress note dated 10/04/2022. The diagnosis of bronchospasm and bronchial inflammation, secondary to injury last couple of days. She is on appropriate medications. The patient is getting 2 L of oxygen. We'll repeat an N-terminal proBNP today, and also give her Lasix 40 mg IV push. The patient's on 2 L. She's not receiving any IV fluids. Labs today include a glucose of 303. Objective - Vital Signs Vital signs: Vital Signs Temp 98.4 F 10/04/22 08:00 Pulse 92 10/04/22 12:29 Resp 22 10/04/22 08:00 BP 136/63 10/04/22 08:00 Pulse Ox 94 L 10/04/22 08:00 FiO2 Intake & Output 10/03/22 10/04/22 10/04/22 18:59 06:59 18:59 Intake Total 200 Balance 200 Weight 102 kg Intake: Oral 200 Other: Voiding Method Toilet Toilet Bedside Commode Bedside Commode # Voids 5 4 - Exam No acute distress, oriented 3. No conversational dyspnea or use of accessory muscles. HEENT examination is grossly unremarkable. Neck supple. Full range of motion. No adenopathy thyromegaly or neck vein distention. Cardiovascular examination reveals regular rhythm rate. S1-S2 normal. No S3 or S4. No discernible murmur noted. Heart rate 92 bpm. Lungs reveal coarse bilateral inspiratory and expiratory wheezes and rhonchi. No crackles. Breath sounds are equal bilaterally. She coughs with inspiration. Saturations are 94 % on room air. Abdomen soft bowel sounds are heard. No masses or tenderness. Extremities are intact. No cyanosis clubbing or edema. Skin is without rash or lesion. Neurologic examination is brief but nonfocal. - Labs CBC & Chem 7: 10/02/22 07:43 10/02/22 07:43 Labs: Abnormal Lab Results - Last 24 Hours (Table) 10/03/22 10/03/22 10/04/22 Range/Units 17:20 19:55 06:14 POC Glucose (mg/dL) 392 H 348 H 183 H (70-110) mg/dL 10/04/22 Range/Units 11:16 POC Glucose (mg/dL) 303 H (70-110) mg/dL Microbiology - Last 24 Hours (Table) 09/30/22 22:35 Blood Culture - Preliminary Blood No Growth after 72 hours Assessment and Plan Assessment: Acute bronchospasm and bronchial inflammation, likely triggered by influenza A infection. History of atrial fibrillation. History of valvular heart disease with valve replacement. History of heart failure. History of diabetes mellitus. Gastroesophageal reflux disease. Hyperlipidemia. Hypertension. History of sleep apnea syndrome. History of hypothyroidism. Obesity. Multiple other medical problems and comorbidities. Plan: Plan dated 10/01/2022. The patient was seen in the emergency department. We gave the patient Solu- Medrol 60 mg every 6 hours for her bronchial inflammation and bronchospasm. The patient is also getting breathing treatments. Additional recommendations and suggestions are forthcoming. Hopeful discharge soon. Labs, x-rays, and medications are reviewed. Because she's been sick for 2 weeks, Tamiflu is prob ably not indicated. Plan dated 10/03/2022. The patient continues on appropriate medications. We better and ready for discharge by the morning. She remains on corticosteroids, breathing treatments, and we added Symbicort as well. Labs, x-rays, and medications are reviewed. Prognosis is guarded. We will continue to follow make recommendations along the way. Plan dated 10/04/2022. The patient continues on 2 L of oxygen. The nurse on the without the oxygen on, and she was ready in the face, and very short of breath. The patient is currently receiving corticosteroids and bronchodilators. We will continue to follow make recommendations along the way. Prognosis is certainly guarded. T wendie we repeated a N-terminal proBNP level. In addition, we give her Lasix, 40 mg, IV push. Time with Patient: Less than 30
[2022-10-04 16:48] LABS: Glucose,Whole Blood 154 mg/dL (70-110)
[2022-10-04] MEDS: INSULIN DETEMIR (LEVEMIR) 100 UNIT/ML SYR SQ SCH (17:18)
[2022-10-04 19:16] LABS: Glucose,Whole Blood 176 mg/dL (70-110)
[2022-10-04] MEDS: LORATADINE 10 MG TAB PO SCH (21:42)
[2022-10-04] MEDS: ATORVASTATIN 40 MG TAB PO SCH (21:42)
[2022-10-04] MEDS: QUEtiapine 100 MG TAB PO SCH (21:43)
[2022-10-05 06:52] LABS: Glucose,Whole Blood 188 mg/dL (70-110)
[2022-10-05] MEDS: LEVOTHYROXINE 137 MCG TAB PO SCH (06:56)
[2022-10-05] MEDS: INSULIN DETEMIR (LEVEMIR) 100 UNIT/ML SYR SQ SCH (06:56)
[2022-10-05] MEDS: SUCRALFATE 1 GM TAB PO SCH (06:56)
[2022-10-05] MEDS: INSULIN ASPART (NovoLOG) 100 UNIT/ML VIAL SQ SCH ×4 (06:56→21:44)
--- NOTE | 2022-10-05 07:00 | XR ---
EXAMINATION TYPE: XR chest 1V portable DATE OF EXAM: 10/05/2022 CLINICAL HISTORY: Difficulty breathing progress study. TECHNIQUE: Single AP portable upright view of the chest is obtained. COMPARISON: Chest x-ray from 2 days earlier and older studies. FINDINGS: Overlying sternal wires along with left atrial appendage clip and metallic aortic valve ar e all redemonstrated. Mild cardiomegaly redemonstrated. Multifocal increased opacity is redemonstrate d greatest in the left lung base. Suspect mild interstitial edema. No pleural effusion or pneumothora x noted. IMPRESSION: Mild cardiomegaly with mild interstitial edema redemonstrated. Correlate for CHF exacerba tion. Bilateral multifocal opacities could reflect acute infiltrates. Correlate to exclude covid-19 i nfection.
[2022-10-05] MEDS: methylPREDNISolone SOD SUCCI 125 MG/2 ML VIAL IV SCH ×3 (07:48→18:11)
[2022-10-05 08:50] LABS: African American GFR (CKD) 106.9 (60.0-200.0); Anion Gap 8.7 mmol/L (10.00-18.00); BUN/Creat Ratio 26.86 Ratio (12.00-20.00); Blood Urea Nitrogen 18.8 mg/dL (9.0-27.0); Calcium 7.5 mg/dL (8.7-10.3); Carbon Dioxide 25.3 mmol/L (20.0-27.5); Non-African American GFR(CKD) 92.2 (60.0-200.0); Potassium 3.8 mmol/L (3.5-5.5)
[2022-10-05] MEDS: IPRATROPIUM-ALBUTEROL 3 ML NEB INHALATION SCH ×4 (08:53→22:09)
[2022-10-05] MEDS: SYMBICORT 160-4.5 MCG INHALER INHALATION SCH (08:53)
[2022-10-05] MEDS: FERROUS SULFATE 325 MG TAB PO SCH ×2 (10:26→21:43)
[2022-10-05] MEDS: METOPROLOL TARTRATE 25 MG TAB PO SCH (10:26)
[2022-10-05] MEDS: CITALOPRAM HYDROBROMIDE 20 MG TAB PO SCH (10:27)
[2022-10-05] MEDS: DICYCLOMINE 10 MG CAP PO SCH ×3 (10:27→21:43)
[2022-10-05 11:54] LABS: Glucose,Whole Blood 293 mg/dL (70-110)
[2022-10-05] MEDS: ENOXAPARIN 40 MG/0.4 ML SYRINGE SQ SCH (12:54)
[2022-10-05] MEDS: guaiFENesin 600 MG TABLET.ER PO SCH ×4 (12:54→21:43)
--- NOTE | 2022-10-05 14:10 | P.PN ---
Subjective Progress Note Date: 10/05/22 Principal diagnosis: Influenza A positive 61-year-old female who presented to the emergency department on September 30, complaining of shortness of breath. The patient hasn't been feeling well for about 2 weeks. The patient came into the ER, because over the last couple of days, her symptoms progressed. She was coughing, wheezing, and very short of breath. Apparently tested positive for influenza A. We see her in the emergency room, room 26. She is on room air. She's not receiving any IV fluids. The patient has a history of atrial fibrillation, CHF, diabetes, GERD, hyperlipidemia, hypertension, osteoarthritis, fatty liver, and sleep apnea, among other things. White count 2, hemoglobin 10.4, hematocrit 31.3, and platelet count 71,000 PT 15.4, INR 1.5, and PTT is 31.9. Sodium 136, potassium 4.3, chlorides 109, CO2 20, BUN 11, creatinine 0.65. Lactic acid was 2.7, repeat was 3.5. Calcium 7.8. Troponin 0.167. Urine was negative. Influenza A studies were positive. Chest x-ray, and our opinion, was essentially normal. The patient is seen today 10/02/2022 in follow-up on the selective care unit. She is currently resting comfortably in bed. Awake and alert in no acute distress. She is still quite fatigued. She is still congested and coughing. She is maintaining O2 saturations in the 90s on 2 L/m per nasal cannula. Normal saline at 100 ML's per hour. She is recovering from influenza A. Blood cultures reveal no growth. White count 3.0. Hemoglobin 9.5. Platelets 53,000. Sodium 140. Potassium 4.4. Bicarb 19. BUN 16. Creatinine 0.54. Glucose 153. She is continued on DuoNeb inhalations, IV Solu-Medrol. Progress note dated 10/03/2022. 61-year-old female admitted with a diagnosis of influenza A. The patient was quite bronchospastic when she was initially seen in the emergency room. She is a bit improved today, but still short of breath. She is on room air. Saturations are 93%. She's getting saline at 100 mL an hour. We placed her on corticosteroids, and breathing treatments, and we are hopeful for discharge in the next 24-48 hours. Laboratory data today includes a glucose of 174. Progress note dated 10/04/2022. The diagnosis of bronchospasm and bronchial inflammation, secondary to injury last couple of days. She is on appropriate medications. The patient is getting 2 L of oxygen. We'll repeat an N-terminal proBNP today, and also give her Lasix 40 mg IV push. The patient's on 2 L. She's not receiving any IV fluids. Labs today include a glucose of 303. I'm reevaluating this patient today on 10/05/2022 on a general medical floor. Patient is reporting that she feels slightly worse today, she is up in the chair, on 3 L nasal cannula. She has coarse rhonchi and wheezes throughout. She continues to have a persistent nonproductive cough. Blood cultures are negative at 96 hours. No new CBC today. BMP from today shows sodium 136, potassium 3.8, chloride 102, serum CO2 25, BUN 18.8, creatinine 0.7, glucose 166. Patient's BNP from yesterday was 1020. She did receive a one-time dose of IV Lasix yesterday. Patient's chest x-ray from today continues to show some mild cardiomegaly with mild interstitial edema. Patient continues to receive DuoNeb inhalation, budesonide inhalation, formoterol inhalation, IV Solu-Medrol, Mucinex. She is receiving Lovenox for DVT prophylaxis. She's not receiving any IV maintenance fluids. Patient remains hemodynamically stable. Objective - Vital Signs Vital signs: Vital Signs Temp 97.5 F L 10/05/22 08:00 Pulse 88 10/05/22 12:59 Resp 20 10/05/22 08:00 BP 99/52 10/05/22 08:00 Pulse Ox 91 L 10/05/22 08:00 FiO2 Intake & Output 10/04/22 10/05/22 10/05/22 18:59 06:59 18:59 Other: Voiding Method Toilet Toilet Bedside Commode Diaper Incontinent # Voids 3 - Exam No acute distress, oriented 3. No conversational dyspnea or use of accessory muscles. HEENT examination is grossly unremarkable. Neck supple. Full range of motion. No adenopathy thyromegaly or neck vein d istention. Cardiovascular examination reveals regular rhythm rate. S1-S2 normal. No S3 or S4. No discernible murmur noted. Heart rate 80 bpm. Lungs reveal coarse bilateral inspiratory and expiratory wheezes and rhonchi. No crackles. Breath sounds are equal bilaterally. No accessory muscle use. She coughs with inspiration. Saturations are 92 % on 3 L nasal cannula. Abdomen soft bowel sounds are heard. No masses or tenderness. Extremities are intact. No cyanosis clubbing or edema. Skin is without rash or lesion. Neurologic examination is brief but nonfocal. - Labs CBC & Chem 7: 10/02/22 07:43 10/05/22 05:32 Labs: Abnormal Lab Results - Last 24 Hours (Table) 10/04/22 10/04/22 10/05/22 Range/Units 16:46 19:14 05:32 Anion Gap 8.70 L (10.00-18.00) mmol/L BUN/Creatinine Ratio 26.86 H (12.00-20.00) Ratio Glucose 166 H (70-110) mg/dL POC Glucose (mg/dL) 154 H 176 H (70-110) mg/dL Calcium 7.5 L (8.7-10.3) mg/dL 10/05/22 10/05/22 Range/Units 06:51 11:53 Anion Gap (10.00-18.00) mmol/L BUN/Creatinine Ratio (12.00-20.00) Ratio Glucose (70-110) mg/dL POC Glucose (mg/dL) 188 H 293 H (70-110) mg/dL Calcium (8.7-10.3) mg/dL Microbiology - Last 24 Hours (Table) 09/30/22 22:35 Blood Culture - Preliminary Blood No Growth after 96 hours Assessment and Plan Assessment: Acute bronchospasm and bronchial inflammation, likely triggered by influenza A infection. History of atrial fibrillation. History of valvular heart disease with valve replacement. History of heart failure. History of diabetes mellitus. Gastroesophageal reflux disease. Hyperlipidemia. Hypertension. History of sleep apnea syndrome. History of hypothyroidism. Obesity. Multiple other medical problems and comorbidities. Plan: Patient's medications, labs, chest x-ray were reviewed today Continue supplemental oxygen to maintain oxygen saturation of 92% or greater Continue DuoNeb inhalation, budesonide inhalation, formoterol inhalation, IV Solu-Medrol, Mucinex. Continue Lovenox for DVT prophylaxis We'll continue to follow I have personally seen and examined the patient, performed the documentation and the assessment and plan as written. Number of minutes spent on the visit: 10. Time with Patient: Less than 30
[2022-10-05 16:50] LABS: Glucose,Whole Blood 254 mg/dL (70-110)
--- NOTE | 2022-10-05 17:41 | P.PN ---
Progress Note - Text Progress Note Date: 10/05/22 This is 61-year-old white female with history of depression and bipolar disorder who has history of GI bleed in the past who came in after two-week history of worsening sickness. The patient states upper respiratory congestion. The patient supposedly has had transfusion in about 3-4 months ago due to GI bleed with cauterization. Question element of AV malformation. The patient is new to me. She is nonsmoker. No known sick contacts are stated. She is resting comfortably in her stretcher today. She is a nonsmoker. 10/02/2022 Patient is seen and evaluated and follow-up covering for Dr. Alvin Hartley and patient coming in with worsening generalized weakness and upper respiratory abbe estion. Pulmonary is following and patient was continued on breathing treatments along with IV steroids and being treated for acute flu. Last reviewed and stable. Patient is continued on 2 L nasal cannula with continued congestion and cough. Patient denies chest pain or palpitations. Patient has been up to the bathroom. No reports of nausea or vomiting noted. Wean FiO2 as tolerated. 10/03/2022 She is seen and evaluated in follow-up today with pulmonary following. Patient is maintained on room air maintaining 92-93%. Blood sugars mildly elevated and will continue with current regimen. Patient is continued on IV Solu-Medrol at 60 mg every 6 along with DuoNeb treatments. We'll obtain a chest x-ray today. Patient is currently afebrile denies chest pain or palpitations. Patient c ontinues to have a cough with generalized fatigue and dyspnea with exertion and encourage the patient to increase activity as tolerated. Encourage oral intake and will discuss possible discharge in the next 24-48 hours 10/04/2022 Patient is seen and evaluated and follow-up with pulmonary following. Patient has been maintained on IV steroids and continues to be short of breath with minimal exertion. Patient requiring 2-3 L via nasal cannula reports she does not normally wear oxygen the outpatient setting. Chest x-ray from yesterday showed atelectasis versus pulmonary edema and was given a dose of Lasix. Patient will be given a dose of Lasix today. Patient reports she has been urinating more frequently since the last dose. Repeat BNP today is 1020 magnesium is 1.7. Blood sugars are elevated and maintained on sliding scale and will add low-dose long-acting given the steroids. Recommend Accu-Cheks before meals and at bedtime and close monitoring. Patient is afebrile denies chest pain or palpitations. Patient continues to report shortness of breath and difficulty in breathing. Patient denies nausea or vomiting and tolerating diet. 10/05/2022: I assumed care of the patient today. Sitting up in a recliner. Short of breath. Wheezing. Change to nebulized form off Perforomist and Pulmicort. Increase DuoNeb to every 4. Warm water with salt gargle. Patient is having significant coughing and throat pain. Follow with pulmonary. Active Medications Acetaminophen (Acetaminophen Tab 325 Mg Tab) 650 mg PO Q6HR PRN PRN Reason: Mild Pain or Fever > 100.5 Last Admin: 10/04/22 06:07 Dose: 650 mg Hydrocodone Bitart/Acetaminophen (Hydrocodone/Apap 5-325mg 1 Each Tab) 1 each PO Q4H PRN PRN Reason: Pain Last Admin: 10/03/22 17:00 Dose: 1 each Albuterol/Ipratropium (Ipratropium-Albuterol 3 Ml Neb) 3 ml INHALATION RT-Q4H [facility] Last Admin: 10/05/22 16:03 Dose: 3 ml Atorvastatin Calcium (Atorvastatin 40 Mg Tab) 40 mg PO HS [facility] Last Admin: 10/04/22 21:42 Dose: 40 mg Budesonide (Budesonide 1 Mg/2 Ml Nebu) 1 mg INHALATION RT-BID [facility] Citalopram Hydrobromide (Citalopram Hydrobromide 20 Mg Tab) 40 mg PO DAILY [facility] Last Admin: 10/05/22 10:27 Dose: 40 mg Cyclobenzaprine HCl (Cyclobenzaprine 10 Mg Tab) 10 mg PO TID PRN PRN Reason: Muscle Pain Dextrose/Water (Dextrose 50% Syringe 50 Ml) 25 ml IVP PER PROTOCOL PRN; Protocol PRN Reason: Hypoglycemia Dextrose/Water (Dextrose 50% Syringe 50 Ml) 50 ml IVP PER PROTOCOL PRN; Protocol PRN Reason: Hypoglycemia Dicyclomine HCl (Dicyclomine 10 Mg Cap) 10 mg PO TID [facility] Last Admin: 10/05/22 16:18 Dose: 10 mg Enoxaparin Sodium (Enoxaparin 40 Mg/0.4 Ml Syringe) 40 mg SQ DAILY [facility] Last Admin: 10/05/22 12:54 Dose: 40 mg Ferrous Sulfate (Ferrous Sulfate 325 Mg Tab) 325 mg PO BID [facility] Last Admin: 10/05/22 10:26 Dose: 325 mg Formoterol Fumarate (Formoterol Fumarate 20 Mcg/2 Ml Nebu) 20 mcg INHALATION RT-BID [facility] Guaifenesin (Guaifenesin 600 Mg Tablet.Er) 600 mg PO QID [facility] Last Admin: 10/05/22 14:53 Dose: 600 mg Insulin Aspart (Insulin Aspart (Novolog) 100 Unit/Ml Vial) 0 unit SQ [facility]; Protocol Last Admin: 10/05/22 12:54 Dose: 6 unit Insulin Detemir (Insulin Detemir (Levemir) 100 Unit/Ml Syr) 10 unit SQ DAILY@0700 [facility] Last Admin: 10/05/22 06:56 Dose: 10 unit Levothyroxine Sodium (Levothyroxine 137 Mcg Tab) 137 mcg PO DAILY@0630 [facility] Last Admin: 10/05/22 06:56 Dose: 137 mcg Loratadine (Loratadine 10 Mg Tab) 10 mg PO [facility] Last Admin: 10/04/22 21:42 Dose: 10 mg Methylprednisolone Sodium Succinate (Methylprednisolone Sod Succi 125 Mg/2 Ml Vial) 60 mg IV Q6HR [facility] Last Admin: 10/05/22 14:33 Dose: 60 mg Metoprolol Tartrate (Metoprolol Tartrate 25 Mg Tab) 37.5 mg PO DAILY [facility] Last Admin: 10/05/22 10:26 Dose: 37.5 mg Naloxone HCl (Naloxone 0.4 Mg/Ml 1 Ml Vial) 0.2 mg IV Q2M PRN PRN Reason: Opioid Reversal Dulaglutide [ Trulicity] 0.75 Mg/0 .5 Ml Each 0.75 mg SQ [facility] Last Admin: 10/03/22 17:38 Dose: 0.75 mg Ondansetron HCl (Ondansetron 4 Mg/2 Ml Vial) 4 mg IVP Q8HR PRN PRN Reason: Nausea And Vomiting Quetiapine Fumarate (Quetiapine 100 Mg Tab) 100 mg PO [facility] Last Admin: 10/04/22 21:43 Dose: 100 mg On examination: VITAL SIGNS: [99.5, 77, 22, 125/63, 90% on 3 L] GENERAL APPEARANCE: BMI 36.3, sitting up in a recliner, short of breath coughing HEENT: Normal external appearance of nose and ear. Oral cavity normal EYES: Pupils equal. Conjunctiva normal. NECK: JVD not raised. Mass not palpable. RESPIRATORY: Respiratory effort increased. Lungs breath sounds, wheezing, crackles CARDIOVASCULAR: First and second sounds normal. No edema. ABDOMEN: Soft. Liver and spleen not palpable. No tenderness. No mass palpable. PSYCHIATRY: Alert and oriented x3. Mood and affect anxious. INVESTIGATIONS, reviewed in the clinical context: Sodium 136 potassium 3.8 creatinine 0.7 Chest x-ray film personally reviewed by me-scattered fine infiltrates Influenza A positive Assessment and plan: -Acute severe Influenza a pneumonitis -Acute severe COPD exacerbation in an ex-smoker: Not improving Increase DuoNeb to every 4, nebulized Pulmicort and Perforomist, -Troponinemia, type II CA. -Acute hypoxic respiratory failure secondary to COPD and influenza A: Slow to respond On 3 L nasal cannula -Chronic normocytic anemia -Chronic ITP Follow platelets -Essential Hypertension Lopressor -Lactic acidosis, improved -Nonalcoholic steatohepatitis -Status post aortic valve replacement history -Hyperlipidemia Lipitor -Hypothyroid Synthroid 137 g -Diabetes mellitus type 2 Continue Trulicity. Follow Accu-Cheks with sliding scale -Obesity BMI 36.3 Weight loss measures -Full code Increase DuoNeb. Change to nebulize Pulmicort and Perforomist. On IV Solu- Medrol. Incentive spirometry. Mucinex. Obtain 2-D echocardiogram
[2022-10-05 21:27] LABS: Glucose,Whole Blood 213 mg/dL (70-110)
[2022-10-05] MEDS: ATORVASTATIN 40 MG TAB PO SCH (21:43)
[2022-10-05] MEDS: QUEtiapine 100 MG TAB PO SCH (21:43)
[2022-10-05] MEDS: LORATADINE 10 MG TAB PO SCH (21:43)
[2022-10-05] MEDS: BUDESONIDE 1 MG/2 ML NEBU INHALATION SCH (22:09)
[2022-10-05] MEDS: FORMOTEROL FUMARATE 20 MCG/2 ML NEBU INHALATION SCH (22:09)
[2022-10-06] MEDS: methylPREDNISolone SOD SUCCI 125 MG/2 ML VIAL IV SCH ×4 (00:33→17:39)
[2022-10-06] MEDS: IPRATROPIUM-ALBUTEROL 3 ML NEB INHALATION SCH ×7 (00:35→23:10)
[2022-10-06 05:58] LABS: Glucose,Whole Blood 221 mg/dL (70-110)
[2022-10-06] MEDS: INSULIN DETEMIR (LEVEMIR) 100 UNIT/ML SYR SQ SCH (06:43)
[2022-10-06] MEDS: INSULIN ASPART (NovoLOG) 100 UNIT/ML VIAL SQ SCH ×4 (06:43→21:34)
[2022-10-06] MEDS: LEVOTHYROXINE 137 MCG TAB PO SCH (06:43)
[2022-10-06] MEDS: FORMOTEROL FUMARATE 20 MCG/2 ML NEBU INHALATION SCH ×2 (07:44→19:12)
[2022-10-06] MEDS: BUDESONIDE 1 MG/2 ML NEBU INHALATION SCH ×2 (07:44→19:12)
[2022-10-06] MEDS: METOPROLOL TARTRATE 25 MG TAB PO SCH (09:27)
[2022-10-06] MEDS: CITALOPRAM HYDROBROMIDE 20 MG TAB PO SCH (09:27)
[2022-10-06] MEDS: guaiFENesin 600 MG TABLET.ER PO SCH ×4 (09:27→21:11)
[2022-10-06] MEDS: FERROUS SULFATE 325 MG TAB PO SCH ×2 (09:27→21:10)
[2022-10-06] MEDS: ENOXAPARIN 40 MG/0.4 ML SYRINGE SQ SCH (09:28)
[2022-10-06] MEDS: DICYCLOMINE 10 MG CAP PO SCH ×3 (09:28→21:34)
[2022-10-06] MEDS ORDERED: LORazepam 0.5 MG TAB PO STA (09:52)
[2022-10-06] MEDS ORDERED: FUROSEMIDE 10 MG/ML 4 ML VIAL IV STA (10:00)
[2022-10-06] MEDS ORDERED: propofoL 100 ML IV ONE (10:31)
--- NOTE | 2022-10-06 10:32 | XR ---
EXAMINATION TYPE: XR chest 1V portable DATE OF EXAM: 10/06/2022 COMPARISON: 10/05/2022 INDICATION: Short of breath TECHNIQUE: Single frontal view of the chest is obtained. FINDINGS: The heart size is normal. The pulmonary vasculature is prominent. Patchy infiltrates are present in the perihilar regions. A left lower lobe infiltrate is present wors ening from comparison. Some developing right upper lobe infiltrate may be present. Sternotomy wires from prior cardiac valve surgery is evident. There is opacification at the right cos tophrenic angle. IMPRESSION: 1. Developing patchy infiltrates. Correlate for pulmonary edema. Pneumonia should be considered. Cont inued follow-up is recommended
--- NOTE | 2022-10-06 10:35 | P.PN ---
Subjective Progress Note Date: 10/06/22 61-year-old female who presented to the emergency department on September 30, complaining of shortness of breath. The patient hasn't been feeling well for about 2 weeks. The patient came into the ER, because over the last couple of days, her symptoms progressed. She was coughing, wheezing, and very short of breath. Apparently tested positive for influenza A. We see her in the emergency room, room 26. She is on room air. She's not receiving any IV fluids. The patient has a history of atrial fibrillation, CHF, diabetes, GERD, hyperlipidemia, hypertension, osteoarthritis, fatty liver, and sleep apnea, among other things. White count 2, hemoglobin 10.4, hematocrit 31.3, and platelet count 71,000 PT 15.4, INR 1.5, and PTT is 31.9. Sodium 136, potassium 4.3, chlorides 109, CO2 20, BUN 11, creatinine 0.65. Lactic acid was 2.7, repeat was 3.5. Calcium 7.8. Troponin 0.167. Urine was negative. Influenza A studies were positive. Chest x-ray, and our opinion, was essentially normal. The patient is seen today 10/02/2022 in follow-up on the selective care unit. She is currently resting comfortably in bed. Awake and alert in no acute distress. She is still quite fatigued. She is still congested and coughing. She is maintaining O2 saturations in the 90s on 2 L/m per nasal cannula. Normal saline at 100 ML's per hour. She is recovering from influenza A. Blood cultures reveal no growth. White count 3.0. Hemoglobin 9.5. Platelets 53,000. Sodium 140. Potassium 4.4. Bicarb 19. BUN 16. Creatinine 0.54. Glucose 153. She is continued on DuoNeb inhalations, IV Solu-Medrol. Progress note dated 10/03/2022. 61-year-old female admitted with a diagnosis of influenza A. The patient was quite bronchospastic when she was initially seen in the emergency room. She is a bit improved today, but still short of breath. She is on room air. Saturations are 93%. She's getting saline at 100 mL an hour. We placed her on corticosteroids, and breathing treatments, and we are hopeful for discharge in the next 24-48 hours. Laboratory data today includes a glucose of 174. Progress note dated 10/04/2022. The diagnosis of bronchospasm and bronchial inflammation, secondary to injury last couple of days. She is on appropriate medications. The patient is getting 2 L of oxygen. We'll repeat an N-terminal proBNP today, and also give her Lasix 40 mg IV push. The patient's on 2 L. She's not receiving any IV fluids. Labs today include a glucose of 303. I'm reevaluating this patient today on 10/05/2022 on a general medical floor. Patient is reporting that she feels slightly worse today, she is up in the chair, on 3 L nasal cannula. She has coarse rhonchi and wheezes throughout. She continues to have a persistent nonproductive cough. Blood cultures are negative at 96 hours. No new CBC today. BMP from today shows sodium 136, potassium 3.8, chloride 102, serum CO2 25, BUN 18.8, creatinine 0.7, glucose 166. Patient's BNP from yesterday was 1020. She did receive a one-time dose of IV Lasix yesterday. Patient's chest x-ray from today continues to show some mild cardiomegaly with mild interstitial edema. Patient continues to receive DuoNeb inhalation, budesonide inhalation, formoterol inhalation, IV Solu-Medrol, Mucinex. She is receiving Lovenox for DVT prophylaxis. She's not receiving any IV maintenance fluids. Patient remains hemodynamically stable. 10/06/2022, the patient acutely became short of breath. The patient was hospitalized on 09/30/2022 for shortness of breath. The patient check positive for influenza A. The patient is known to have fatty liver, obstructive sleep apnea, chronic into fibrillation, CHF and diabetes mellitus and hypertension and hyperlipidemia. The patient was being treated with Tamiflu, DuoNeb treatments [id number] and IV Solu-Medrol. The patient this morning became acutely short of breath. The patient was given initial dose of Lasix. Nevertheless, the patient was Tachypneic using excessive amounts of breathing and for that reason patient was placed on a BiPAP pressure of 14 cm of water with an FiO2 of 100% and patient is currently being transferred to the intensive care unit. Obviously, the patient was made intubation mechanical ventilation. She is quite obtunded at this point in time. Her respiratory rate is in the mid 40s and she is very tachypneic and short of breath. Labs are not available from today. Labs from yesterday was noted. Meanwhile a chest x-ray was done and based on my review of the chest x-ray, patchy bilateral pulmonary infiltrates., Cannot rule out CHF versus viral pneumonia. Based on her records, the patient COPD is moderately severe and the patient is an FEV1 of 64% of predicted. She has had previous hospitalizations with respiratory distress requiring BiPAP therapy for respiratory support. She also has an aortic valve replacement that was done on 04/30/2019. Objective - Vital Signs Vital signs: Vital Signs Temp 97.5 F L 10/06/22 09:00 Pulse 87 10/06/22 09:00 Resp 17 10/06/22 09:00 BP 132/60 10/06/22 09:00 Pulse Ox 90 L 10/06/22 09:00 FiO2 Intake & Output 10/05/22 10/06/22 10/06/22 18:59 06:59 18:59 Intake Total 480 Balance 480 Weight 111.5 kg Intake: Oral 480 Other: Voiding Method Toilet Toilet Diaper Diaper Incontinent Incontinent # Voids 2 2 - Exam significant respiratory distress and use of emphysematous of breathing and the patient is currently on a BiPAP at a pressure of 14/6 cm of water and the patient is being transferred to the intensive care unit. HEENT examination is grossly unremarkable. Neck supple. Full range of motion. No adenopathy thyromegaly or neck vein distention. Cardiovascular examination reveals regular rhythm rate. S1-S2 normal. No S3 or S4. No discernible murmur noted. Heart rate 80 bpm. Lungs reveal coarse bilateral inspiratory and expiratory wheezes and rhonchi. No crackles. Breath sounds are equal bilaterally. accessory muscle use. Abdomen soft bowel sounds are heard. No masses or tenderness. Extremities are intact. No cyanosis clubbing or edema. Skin is without rash or lesion. Neurologic examination is brief but nonfocal. - Labs CBC & Chem 7: 10/02/22 07:43 10/05/22 05:32 Labs: Abnormal Lab Results - Last 24 Hours (Table) 10/05/22 10/05/22 10/05/22 Range/Units 11:53 16:49 21:25 POC Glucose (mg/dL) 293 H 254 H 213 H (70-110) mg/dL 10/06/22 Range/Units 05:57 POC Glucose (mg/dL) 221 H (70-110) mg/dL Microbiology - Last 24 Hours (Table) 09/30/22 22:35 Blood Culture - Preliminary Blood No Growth after 120 hours Assessment and Plan Plan: Acute bronchospasm and bronchial inflammation, likely triggered by influenza A infection.The patient was found to be in significant respiratory distress, placed on a BiPAP, failed BiPAP therapy as the patient continues to be critically tachycardic, diaphoretic and in impending respiratory failure. Chest x-ray showed bilateral patchy pulmonary infiltrates left lower lobe, right lower lobe and perihilar areas. The patient has checked positive for influenza A the time of admission. The patient will likely need intubation and ventilation. The patient is being transferred to the intensive care unit for now. History of atrial fibrillation. History of valvular heart disease with aortic valve replacement. History of heart failure. History of diabetes mellitus. Gastroesophageal reflux disease. Hyperlipidemia. Hypertension. History of sleep apnea syndrome. History of hypothyroidism. Obesity. Multiple other medical problems and comorbidities. Plan Transfer the patient to the intensive care unit The patient will need intubation mechanical ventilation. The patient will be sedated with propofol. IV lines will be established in the chest x-rays going to be. Post intubation. We'll continue the bronchodilators. We'll continue the steroids. We'll check a pro-calcitonin level. We'll check sputum Gram stain and culture for any bacterial superinfection. Will cover this patient with broad-spectrum antibiotics. Family will be made aware of those changes. We'll continue to follow. Condition is critical. This evaluation was done in more than 30 minutes and is in the treatment in progress. Time with Patient: Greater than 30
[2022-10-06] MEDS ORDERED: CISATRACURIUM 2 MG/ML 5 ML VIAL IV ONE (10:37)
[2022-10-06] MEDS ORDERED: CLEVIDIPINE BUTYRATE 25 MG/50 ML VIAL IV ONE (11:07)
--- NOTE | 2022-10-06 11:09 | P.PCN ---
Date of Procedure: 10/06/22 Preoperative Diagnosis: COPD exacerbation, Influenza A Postoperative Diagnosis: COPD exacerbation, Influenza A Procedure(s) Performed: Intubation Central line Arterial line Anesthesia: local Surgeon: Carlita Weller Estimated Blood Loss (ml): 0 Pathology: none sent Condition: critical Disposition: ICU Operative Findings: Indication: Respiratory compromise. A time-out was completed verifying correct patient, procedure, site, positioning, and implant(s) or special equipment if applicable. The patient was positioned appropriately and a #8 endotracheal tube was placed under direct laryngoscopy. The tube was anchored at 22 cm at the teeth. Correct placement was confirmed by presence of bilateral breath sounds without air sounds in the abdomen on auscultation. An end-tidal CO2 monitor was also used to confirm tracheal placement of the ET tube. A chest x-ray was ordered to assess for pneumothorax and verify endotracheal tube placement. The patient tolerated the procedure well and there were no complications. Indication: Hemodynamic monitoring/Intravenous access. A time-out was completed verifying correct patient, procedure, site, positioning, and implant(s) or special equipment if applicable. The patient was placed in a dependent position appropriate for central line placement based on the vein to be cannulated. The patient s Left neck was prepped and draped in sterile fashion. 1% Lidocaine was used to anesthetize the surrounding skin area. A triple lumen 9F Cordis catheter was introduced into the left internal jugular vein using Seldinger technique. The catheter was threaded smoothly over the guide wire and appropriate blood return was obtained. Each lumen of the catheter was evacuated of air and flushed with sterile saline. The catheter was then sutured in place to the skin and a sterile dressing applied. Perfusion to the extremity distal to the point of catheter insertion was checked and found to be adequate. The patient tolerated the procedure well and there were no complications. Indication: Hemodynamic monitoring. A time-out was completed verifying correct patient, procedure, site, positioning, and implant(s) or special equipment if applicable. Allens test was performed to ensure adequate perfusion. The patient s right wrist was prepped and draped in sterile fashion. 1% Lidocaine was used to anesthetize the area. An 18G Arrow arterial line was introduced into the rad ial artery. The catheter was threaded over the guide wire and the needle was removed with appropriate pulsatile blood return. Blood loss was minimal. The catheter was then sutured in place to the skin and a sterile dressing applied. Perfusion to the extremity distal to the point of catheter insertion was checked and found to be adequate. The patient tolerated the procedure well and there were no complications.
[2022-10-06 11:10] LABS: ABG HCO3 23 mmol/L (21-25); ABG Oxygen Saturation 93.6 % (94-97); ABG PCO2 44 mmHg (35-45); ABG PH 7.33 (7.35-7.45); ABG PO2 77 mmHg (83-108); ABG TCO2 24 mmol/L (19-24)
[2022-10-06] MEDS ORDERED: VANCOMYCIN IV PER PHARMACY 1 EACH MISC MISCELLANE PRN (11:10)
[2022-10-06 11:12] LABS: Allen Test Performed? no
[2022-10-06] MEDS ORDERED: CEFEPIME 2 GM in SODIUM CHLORIDE 0.9% 100 ML IVPB SCH (11:15)
--- NOTE | 2022-10-06 11:27 | XR ---
EXAMINATION TYPE: XR chest 1V portable DATE OF EXAM: 10/06/2022 COMPARISON: 10/06/2022 INDICATION: Tube placement TECHNIQUE: Single frontal view of the chest is obtained. FINDINGS: The heart size is mildly prominent. The pulmonary vasculature is normal. Patchy suprahilar infiltrates are present bilaterally. Small left pleural effusion is present. There is an endotracheal tube present with the tip above the tia. Nasogastric tube transverses the thorax. Left central venous catheter tip is in the proximal right atrial region. No pneumothorax is evident. IMPRESSION: 1. Increasing patchy bilateral perihilar infiltrates. 2. Small left pleural effusion. 3. Lines and catheters discussed above.
[2022-10-06] MEDS: CLEVIDIPINE BUTYRATE 25 MG in EMPTY BAG 1 BAG IV SCH (11:40)
[2022-10-06] MEDS ORDERED: FAMOTIDINE 20 MG/2 ML VIAL IV STA (11:47)
[2022-10-06] MEDS ORDERED: diphenhydrAMINE 50 MG/ML 1 ML VIAL IVP STA (11:47)
[2022-10-06] MEDS: CISATRACURIUM 200 MG in SODIUM CHLORIDE 0.9% 180 ML IV SCH (12:41)
[2022-10-06 12:43] LABS: African American GFR (CKD) >90 (>60 ml/min/1.73 sqM); Anion Gap 6 mmol/L; Blood Urea Nitrogen 25 mg/dL (7-17); Calcium 7.3 mg/dL (8.4-10.2); Carbon Dioxide 26 mmol/L (22-30); Chloride 104 mmol/L (98-107); Glucose 203 mg/dL (74-99); Non-African American GFR(CKD) >90 (>60 ml/min/1.73 sqM); Potassium 3.6 mmol/L (3.5-5.1); Sodium 136 mmol/L (137-145)
[2022-10-06 12:52] LABS: Basophils # (A) 0.1 k/uL (0-0.2); Basophils % (A) 1 %; Eosinophils % (A) 0 %; HCT 34.3 % (34.0-46.0); HGB 11.5 gm/dL (11.4-16.0); Hypochromasia Moderate; Lymphocytes # (A) 0.2 k/uL (1.0-4.8); Lymphocytes % (A) 2 %; MCH 31.8 pg (25.0-35.0); MCHC 33.4 g/dL (31.0-37.0); MCV 95.3 fL (80.0-100.0); Monocytes # (A) 0.3 k/uL (0-1.0); Monocytes % (A) 3 %; Neutrophils # (A) 12.2 k/uL (1.3-7.7); Neutrophils % (A) 94 %; Poikilocytosis Slight
[2022-10-06 12:53] LABS: Platelet Count 121 k/uL (150-450)
[2022-10-06] MEDS: VANCOMYCIN 1,750 MG in SODIUM CHLORIDE 0.9% 500 ML 500 ML IVPB SCH (12:53)
--- NOTE | 2022-10-06 12:57 | P.PN ---
Progress Note - Text Progress Note Date: 10/06/22 This is 61-year-old white female with history of depression and bipolar disorder who has history of GI bleed in the past who came in after two-week history of worsening sickness. The patient states upper respiratory congestion. The patient supposedly has had transfusion in about 3-4 months ago due to GI bleed with cauterization. Question element of AV malformation. The patient is new to me. She is nonsmoker. No known sick contacts are stated. She is resting comfortably in her stretcher today. She is a nonsmoker. 10/02/2022 Patient is seen and evaluated and follow-up covering for Dr. Alvin Hartley and patient coming in with worsening generalized weakness and upper respiratory abbe estion. Pulmonary is following and patient was continued on breathing treatments along with IV steroids and being treated for acute flu. Last reviewed and stable. Patient is continued on 2 L nasal cannula with continued congestion and cough. Patient denies chest pain or palpitations. Patient has been up to the bathroom. No reports of nausea or vomiting noted. Wean FiO2 as tolerated. 10/03/2022 She is seen and evaluated in follow-up today with pulmonary following. Patient is maintained on room air maintaining 92-93%. Blood sugars mildly elevated and will continue with current regimen. Patient is continued on IV Solu-Medrol at 60 mg every 6 along with DuoNeb treatments. We'll obtain a chest x-ray today. Patient is currently afebrile denies chest pain or palpitations. Patient c ontinues to have a cough with generalized fatigue and dyspnea with exertion and encourage the patient to increase activity as tolerated. Encourage oral intake and will discuss possible discharge in the next 24-48 hours 10/04/2022 Patient is seen and evaluated and follow-up with pulmonary following. Patient has been maintained on IV steroids and continues to be short of breath with minimal exertion. Patient requiring 2-3 L via nasal cannula reports she does not normally wear oxygen the outpatient setting. Chest x-ray from yesterday showed atelectasis versus pulmonary edema and was given a dose of Lasix. Patient will be given a dose of Lasix today. Patient reports she has been urinating more frequently since the last dose. Repeat BNP today is 1020 magnesium is 1.7. Blood sugars are elevated and maintained on sliding scale and will add low-dose long-acting given the steroids. Recommend Accu-Cheks before meals and at bedtime and close monitoring. Patient is afebrile denies chest pain or palpitations. Patient continues to report shortness of breath and difficulty in breathing. Patient denies nausea or vomiting and tolerating diet. 10/05/2022: I assumed care of the patient today. Sitting up in a recliner. Short of breath. Wheezing. Change to nebulized form off Perforomist and Pulmicort. Increase DuoNeb to every 4. Warm water with salt gargle. Patient is having significant coughing and throat pain. Follow with pulmonary. 10/06/2022: 100 this morning patient became more and more short of breath. Wheezing. Hypoxic. Was put on a BiPAP nonrebreather. As per Mr. has deteriorated patient smoked with ICU intubated. Put on cleviprex drip and Nimbex. On 100% FiO2. Being followed by fire alarm operator. Active Medications Acetaminophen (Acetaminophen Tab 325 Mg Tab) 650 mg PO Q6HR PRN PRN Reason: Mild Pain or Fever > 100.5 Last Admin: 10/04/22 06:07 Dose: 650 mg Hydrocodone Bitart/Acetaminophen (Hydrocodone/Apap 5-325mg 1 Each Tab) 1 each PO Q4H PRN PRN Reason: Pain Last Admin: 10/03/22 17:00 Dose: 1 each Albuterol/Ipratropium (Ipratropium-Albuterol 3 Ml Neb) 3 ml INHALATION RT-Q4H [facility] Last Admin: 10/06/22 12:22 Dose: 3 ml Artificial Tears (Artificial Tears-Hypromellose Drops 15 Ml Btl) 2 drops BOTH EYES Q4HR [facility] Atorvastatin Calcium (Atorvastatin 40 Mg Tab) 40 mg PO HS [facility] Last Admin: 10/05/22 21:43 Dose: 40 mg Budesonide (Budesonide 1 Mg/2 Ml Nebu) 1 mg INHALATION RT-BID [facility] Last Admin: 10/06/22 07:44 Dose: 1 mg Chlorhexidine Gluconate (Chlorhexidine Gluconate 15 Ml Cup) 15 ml MUCOUS MEM BID [facility] Citalopram Hydrobromide (Citalopram Hydrobromide 20 Mg Tab) 40 mg PO DAILY [facility] Last Admin: 10/06/22 09:27 Dose: 40 mg Cyclobenzaprine HCl (Cyclobenzaprine 10 Mg Tab) 10 mg PO TID PRN PRN Reason: Muscle Pain Dextrose/Water (Dextrose 50% Syringe 50 Ml) 25 ml IVP PER PROTOCOL PRN; Protocol PRN Reason: Hypoglycemia Dextrose/Water (Dextrose 50% Syringe 50 Ml) 50 ml IVP PER PROTOCOL PRN; Pr otocol PRN Reason: Hypoglycemia Dicyclomine HCl (Dicyclomine 10 Mg Cap) 10 mg PO TID [facility] Last Admin: 10/06/22 09:28 Dose: 10 mg Enoxaparin Sodium (Enoxaparin 40 Mg/0.4 Ml Syringe) 40 mg SQ DAILY [facility] Last Admin: 10/06/22 09:28 Dose: 40 mg Ferrous Sulfate (Ferrous Sulfate 325 Mg Tab) 325 mg PO BID [facility] Last Admin: 10/06/22 09:27 Dose: 325 mg Formoterol Fumarate (Formoterol Fumarate 20 Mcg/2 Ml Nebu) 20 mcg INHALATION RT-BID [facility] Last Admin: 10/06/22 07:44 Dose: 20 mcg Guaifenesin (Guaifenesin 600 Mg Tablet.Er) 600 mg PO QID [facility] Last Admin: 10/06/22 09:27 Dose: 600 mg Propofol 1,000 mg/ IV Solution 100 mls @ 10.035 mls/hr IV .Q9H58M [facility]; Protocol Cefepime HCl 2 gm/ Sodium (Chloride) 100 mls @ 25 mls/hr IVPB Q12HR [facility]; Protocol Last Admin: 10/06/22 12:07 Dose: 25 mls/hr Vancomycin HCl 1,750 mg/ (Sodium Chloride) 500 mls @ 167 mls/hr IVPB Q12H [facility] Clevidipine 25 mg/ IV Solution 50 mls @ 2 mls/hr IV .Q24H [facility]; Protocol Cisatracurium Besylate 200 mg/ (Sodium Chloride) 200 mls @ 6.69 mls/hr IV .Q24H [facility]; Protocol Insulin Aspart (Insulin Aspart (Novolog) 100 Unit/Ml Vial) 0 unit SQ ACHS [facility]; Protocol Last Admin: 10/06/22 06:43 Dose: 4 unit Insulin Detemir (Insulin Detemir (Levemir) 100 Unit/Ml Syr) 10 unit SQ DAILY@0700 [facility] Last Admin: 10/06/22 06:43 Dose: 10 unit Levothyroxine Sodium (Levothyroxine 137 Mcg Tab) 137 mcg PO DAILY@0630 [facility] Last Admin: 10/06/22 06:43 Dose: 137 mcg Loratadine (Loratadine 10 Mg Tab) 10 mg PO [facility] Last Admin: 10/05/22 21:43 Dose: 10 mg Methylprednisolone Sodium Succinate (Methylprednisolone Sod Succi 125 Mg/2 Ml Vial) 60 mg IV Q6HR [facility] Last Admin: 10/06/22 06:43 Dose: 60 mg Metoprolol Tartrate (Metoprolol Tartrate 25 Mg Tab) 37.5 mg PO DAILY [facility] Last Admin: 10/06/22 09:27 Dose: 37.5 mg Naloxone HCl (Naloxone 0.4 Mg/Ml 1 Ml Vial) 0.2 mg IV Q2M PRN PRN Reason: Opioid Reversal Dulaglutide [ Trulicity] 0.75 Mg/0 .5 Ml Each 0.75 mg SQ MATA [facility] Last Admin: 10/03/22 17:38 Dose: 0.75 mg Ondansetron HCl (Ondansetron 4 Mg/2 Ml Vial) 4 mg IVP Q8HR PRN PRN Reason: Nausea And Vomiting Quetiapine Fumarate (Quetiapine 100 Mg Tab) 100 mg PO [facility] Last Admin: 10/05/22 21:43 Dose: 100 mg On examination: VITAL SIGNS: []95, 100% FiO2 GENERAL APPEARANCE: Laying in bed, intubated, ET tube HEENT: Normal external appearance of nose and ear. Oral cavity normal EYES: Pupils equal. Conjunctiva normal. NECK: JVD not raised. Mass not palpable. RESPIRATORY: Respiratory effort increased. Lungs breath sounds, wheezing, crackles CARDIOVASCULAR: First and second sounds normal. No edema. ABDOMEN: Soft. Liver and spleen not palpable. No tenderness. No mass palpable. PSYCHIATRY: Sedated INVESTIGATIONS, reviewed in the clinical context: 10/06/2022: PH 7.3 pO2 77 FiO2 100%. Chest x-ray film. Bilateral infiltrate Sodium 136 potassium 3.8 creatinine 0.7 Chest x-ray film personally reviewed by me-scattered fine infiltrates Influenza A positive Assessment and plan: -Acute severe Influenza a pneumonitis -Acute severe COPD exacerbation in an ex-smoker: Worsening Increase DuoNeb to every 4, nebulized Pulmicort and Perforomist, -Possible secondary bacterial pneumonia Empirically started on cefepime -Troponinemia, type II NH. -Acute hypoxic respiratory failure secondary to COPD and influenza A: Worsening Patient intubated [October 06] -Chronic normocytic anemia -Chronic ITP Follow platelets -Essential Hypertension Lopressor -Lactic acidosis, improved -Nonalcoholic steatohepatitis -Status post aortic valve replacement history -Hyperlipidemia Lipitor -Hypothyroid Synthroid 137 g -Diabetes mellitus type 2 Continue Trulicity. Follow Accu-Cheks with sliding scale -Obesity BMI 36.3 Weight loss measures -Full code Intubated. ICU. IV cefepime. IV cleviprex, IV Nimbex. IV vancomycin. IV propofol. IV Solu-Medrol.
[2022-10-06 13:16] LABS: Glucose,Whole Blood 204 mg/dL (70-110)
[2022-10-06] MEDS: ACETAMINOPHEN TAB 325 MG TAB PO PRN (13:28)
[2022-10-06] MEDS ORDERED: POTASSIUM BICARBONATE/CIT AC 20 MEQ TABLET.EFF NG-TUBE SCH (14:00)
[2022-10-06] MEDS ORDERED: SODIUM CHLORIDE 0.9% 1,000 ML IV ONE ×2 (14:23→15:35)
[2022-10-06] MEDS ORDERED: Phosphorus Replacement Protoco 1 EACH MISC MISCELLANE PRN (15:25)
[2022-10-06] MEDS ORDERED: Potassium Replacement Protocol 1 EACH MISC MISCELLANE PRN (15:25)
[2022-10-06] MEDS ORDERED: Magnesium Replacement Protocol 1 EACH MISC MISCELLANE PRN (15:25)
[2022-10-06] MEDS: SODIUM CHLORIDE 0.9% 1,000 ML IV SCH (15:44)
[2022-10-06] MEDS: ARTIFICIAL TEARS-HYPROMELLOSE DROPS 15 ML BTL BOTH EYES SCH ×2 (16:29→21:33)
[2022-10-06] MEDS: NOREPINEPHRINE 8 MG in SODIUM CHLORIDE 0.9% 250 ML IV SCH (16:45)
[2022-10-06 17:39] LABS: Glucose,Whole Blood 189 mg/dL (70-110)
[2022-10-06 18:57] LABS: Appearance,Urine Clear (Clear); Bacteria,Urine Rare /hpf; Bilirubin,Urine Negative (Negative); Blood,Urine Small (Negative); Color,Urine Yellow; Glucose,Urine (UA) Negative (Negative); Hyaline Casts,Urine 31 /lpf (0-2); Ketones,Urine Negative (Negative); Leukocyte Esterase,Urine Negative (Negative); Mucus,Urine Rare /hpf; Nitrite,Urine Negative (Negative); Protein,Urine Trace (Negative); RBC,Urine 16 /hpf (0-5); Specific Gravity,Urine 1.022 (1.001-1.035); Squamous Epithelial Cell,Urine <1 /hpf (0-4); Urobilinogen,Urine <2.0 mg/dL (<2.0); WBC,Urine 14 /hpf (0-5)
[2022-10-06 21:16] LABS: Glucose,Whole Blood 208 mg/dL (70-110)
[2022-10-06] MEDS: CEFEPIME 2 GM in SODIUM CHLORIDE 0.9% 100 ML IVPB SCH (21:33)
[2022-10-06] MEDS: ATORVASTATIN 40 MG TAB PO SCH (21:34)
[2022-10-06] MEDS: LORATADINE 10 MG TAB PO SCH (21:34)
[2022-10-06] MEDS: CHLORHEXIDINE GLUCONATE 15 ML CUP MUCOUS MEM SCH (21:34)
[2022-10-06 23:45] LABS: Glucose,Whole Blood 210 mg/dL (70-110)
[2022-10-07] MEDS: ARTIFICIAL TEARS-HYPROMELLOSE DROPS 15 ML BTL BOTH EYES SCH ×7 (00:33→23:40)
[2022-10-07] MEDS: QUEtiapine 100 MG TAB PO SCH ×2 (00:33→21:13)
[2022-10-07] MEDS: VANCOMYCIN 1,750 MG in SODIUM CHLORIDE 0.9% 500 ML 500 ML IVPB SCH ×3 (00:35→23:30)
[2022-10-07] MEDS: methylPREDNISolone SOD SUCCI 125 MG/2 ML VIAL IV SCH ×5 (00:36→23:31)
[2022-10-07] MEDS: SODIUM CHLORIDE 0.9% 1,000 ML IV SCH ×2 (01:30→23:40)
[2022-10-07] MEDS: IPRATROPIUM-ALBUTEROL 3 ML NEB INHALATION SCH ×6 (03:16→23:26)
[2022-10-07 05:03] LABS: Basophils % (A) 1 %; Eosinophils % (A) 0 %; HCT 29.6 % (34.0-46.0); HGB 9.6 gm/dL (11.4-16.0); Hypochromasia Marked; Lymphocytes # (A) 0.2 k/uL (1.0-4.8); Lymphocytes % (A) 3 %; MCH 31.6 pg (25.0-35.0); MCHC 32.3 g/dL (31.0-37.0); Mean Platelet Volume 10.2; Monocytes # (A) 0.2 k/uL (0-1.0); Monocytes % (A) 3 %; Neutrophils # (A) 5.4 k/uL (1.3-7.7); Neutrophils % (A) 92 %; Poikilocytosis Slight; RBC 3.02 m/uL (3.80-5.40); RDW 15.2 % (11.5-15.5); WBC 5.8 k/uL (3.8-10.6)
[2022-10-07] MEDS: CEFEPIME 2 GM in SODIUM CHLORIDE 0.9% 100 ML IVPB SCH ×3 (05:08→21:13)
[2022-10-07 05:20] LABS: Platelet Count 58 k/uL (150-450)
[2022-10-07 05:39] LABS: African American GFR (CKD) >90 (>60 ml/min/1.73 sqM); Anion Gap 3 mmol/L; Blood Urea Nitrogen 26 mg/dL (7-17); Calcium 6.8 mg/dL (8.4-10.2); Carbon Dioxide 24 mmol/L (22-30); Chloride 110 mmol/L (98-107); Glucose 218 mg/dL (74-99); Magnesium 2.3 mg/dL (1.6-2.3); Non-African American GFR(CKD) >90 (>60 ml/min/1.73 sqM); Potassium 4.5 mmol/L (3.5-5.1); Sodium 137 mmol/L (137-145)
[2022-10-07 06:20] LABS: ABG Base Excess 0.1 mmol/L; ABG HCO3 26 mmol/L (21-25); ABG Oxygen Saturation 99.5 % (94-97); ABG PCO2 49 mmHg (35-45); ABG PH 7.33 (7.35-7.45); ABG PO2 119 mmHg (83-108); ABG TCO2 28 mmol/L (19-24)
[2022-10-07 06:25] LABS: Glucose,Whole Blood 240 mg/dL (70-110)
[2022-10-07 06:28] LABS: Allen Test Performed? no
--- NOTE | 2022-10-07 07:05 | P.PN ---
Subjective Progress Note Date: 10/07/22 61-year-old female who presented to the emergency department on September 30, complaining of shortness of breath. The patient hasn't been feeling well for about 2 weeks. The patient came into the ER, because over the last couple of days, her symptoms progressed. She was coughing, wheezing, and very short of breath. Apparently tested positive for influenza A. We see her in the emergency room, room 26. She is on room air. She's not receiving any IV fluids. The patient has a history of atrial fibrillation, CHF, diabetes, GERD, hyperlipidemia, hypertension, osteoarthritis, fatty liver, and sleep apnea, among other things. White count 2, hemoglobin 10.4, hematocrit 31.3, and platelet count 71,000 PT 15.4, INR 1.5, and PTT is 31.9. Sodium 136, potassium 4.3, chlorides 109, CO2 20, BUN 11, creatinine 0.65. Lactic acid was 2.7, repeat was 3.5. Calcium 7.8. Troponin 0.167. Urine was negative. Influenza A studies were positive. Chest x-ray, and our opinion, was essentially normal. The patient is seen today 10/02/2022 in follow-up on the selective care unit. She is currently resting comfortably in bed. Awake and alert in no acute distress. She is still quite fatigued. She is still congested and coughing. She is maintaining O2 saturations in the 90s on 2 L/m per nasal cannula. Normal saline at 100 ML's per hour. She is recovering from influenza A. Blood cultures reveal no growth. White count 3.0. Hemoglobin 9.5. Platelets 53,000. Sodium 140. Potassium 4.4. Bicarb 19. BUN 16. Creatinine 0.54. Glucose 153. She is continued on DuoNeb inhalations, IV Solu-Medrol. Progress note dated 10/03/2022. 61-year-old female admitted with a diagnosis of influenza A. The patient was quite bronchospastic when she was initially seen in the emergency room. She is a bit improved today, but still short of breath. She is on room air. Saturations are 93%. She's getting saline at 100 mL an hour. We placed her on corticosteroids, and breathing treatments, and we are hopeful for discharge in the next 24-48 hours. Laboratory data today includes a glucose of 174. Progress note dated 10/04/2022. The diagnosis of bronchospasm and bronchial inflammation, secondary to injury last couple of days. She is on appropriate medications. The patient is getting 2 L of oxygen. We'll repeat an N-terminal proBNP today, and also give her Lasix 40 mg IV push. The patient's on 2 L. She's not receiving any IV fluids. Labs today include a glucose of 303. I'm reevaluating this patient today on 10/05/2022 on a general medical floor. Patient is reporting that she feels slightly worse today, she is up in the chair, on 3 L nasal cannula. She has coarse rhonchi and wheezes throughout. She continues to have a persistent nonproductive cough. Blood cultures are negative at 96 hours. No new CBC today. BMP from today shows sodium 136, potassium 3.8, chloride 102, serum CO2 25, BUN 18.8, creatinine 0.7, glucose 166. Patient's BNP from yesterday was 1020. She did receive a one-time dose of IV Lasix yesterday. Patient's chest x-ray from today continues to show some mild cardiomegaly with mild interstitial edema. Patient continues to receive DuoNeb inhalation, budesonide inhalation, formoterol inhalation, IV Solu-Medrol, Mucinex. She is receiving Lovenox for DVT prophylaxis. She's not receiving any IV maintenance fluids. Patient remains hemodynamically stable. 10/06/2022, the patient acutely became short of breath. The patient was hospitalized on 09/30/2022 for shortness of breath. The patient check positive for influenza A. The patient is known to have fatty liver, obstructive sleep apnea, chronic into fibrillation, CHF and diabetes mellitus and hypertension and hyperlipidemia. The patient was being treated with Tamiflu, DuoNeb treatments [id number] and IV Solu-Medrol. The patient this morning became acutely short of breath. The patient was given initial dose of Lasix. Nevertheless, the patient was Tachypneic using excessive amounts of breathing and for that reason patient was placed on a BiPAP pressure of 14 cm of water with an FiO2 of 100% and patient is currently being transferred to the intensive care unit. Obviously, the patient was made intubation mechanical ventilation. She is quite obtunded at this point in time. Her respiratory rate is in the mid 40s and she is very tachypneic and short of breath. Labs are not available from today. Labs from yesterday was noted. Meanwhile a chest x-ray was done and based on my review of the chest x-ray, patchy bilateral pulmonary infiltrates., Cannot rule out CHF versus viral pneumonia. Based on her records, the patient COPD is moderately severe and the patient is an FEV1 of 64% of predicted. She has had previous hospitalizations with respiratory distress requiring BiPAP therapy for respiratory support. She also has an aortic valve replacement that was done on 04/30/2019. On 10/07/2022, the patient is being seen for a follow-up. As mentioned yesterday, there was obvious decompensation the patient is post status. The patient developed extensive multifocal pneumonia and for that reason the patient had to be intubated and placed on a mechanical ventilator. This morning, she is on propofol which is running at 50 mcg/kg/m and the patient is also paralyzed as the patient was quite a successful the mechanical ventilator. Nimbex is running at 1 mcg/kg/m. She is very much interested a mechanical ventilator. She is adequately paralyzed and sedated. She is on assist-control mode of mechanical ventilation at the rate of 26, tidal volume of 400, FiO2 of 90% with a PEEP of 10. Blood gases showed some mild improvement in oxygenation. PH is at 7.33 with a pCO2 of 49 and pO2 of 119. The peak airway pressure is at 28. Meanwhile, the patient's is currently on broad-spectrum antibiotics. On yesterday's evaluation, I started the patient a combination of cefepime and vancomycin suspecting a superinfection on top of the influenza pneumonia. Gram- positive cocci in chains and clusters and oriented the identified in the blood and we are still awaiting final cultures and sensitivities. Meanwhile, the patient has not required any pressors. She did require pressors earlier post intubation and this morning she is off pressors. IV fluids are in the form of normal saline running at the rate of 50 mL an hour. She is still nothing by mouth. White cell count of 5.8 with a hemoglobin of 9.6 and a platelet count of 58 and there is a significant drop in the platelet count from yesterday. Nevertheless, on and off, the patient's platelet counts have been low. BUN is at 26 with a creatinine of 0.6 and a sodium level is at 137. Legionella urine antigen has been negative. Pro-calcitonin level checked yesterday is still pending. Objective - Vital Signs Vital signs: Vital Signs Temp 97.6 F 10/07/22 05:00 Pulse 87 10/07/22 06:00 Resp 26 H 10/07/22 06:00 BP 131/69 10/07/22 06:00 Pulse Ox 95 10/07/22 06:00 FiO2 90 10/07/22 05:00 Intake & Output 10/06/22 10/06/22 10/07/22 06:59 18:59 06:59 Intake Total 480 2989.285 2169.573 Output Total 415 1235 Balance 480 2574.285 934.573 Weight 111.5 kg 111.5 kg 118.5 kg Intake: IV 18 1296 0.9NS Pressure Bag 18 36 Cefepime 2 gm In Sodium 100 Chloride 0.9% 100 ml @ 25 mls/hr IVPB Q12HR [facility] Rx #:[id number] Sodium Chloride 0.9% 1, 660 000 ml @ 50 mls/hr IV . Q20H [facility] Rx#:[id number] Vancomycin 1,750 mg In 500 Sodium Chloride 0.9% 500 ml 500 ml @ 167 mls/hr IVPB Q12H [facility] Rx#: [id number] Intake, IV Titration 2971.285 753.573 Amount Cefepime 2 gm In Sodium 100 Chloride 0.9% 100 ml @ 25 mls/hr IVPB Q12HR [facility] Rx #:[id number] Cefepime 2 gm In Sodium 100 Chloride 0.9% 100 ml @ 25 mls/hr IVPB Q8H [facility] Rx#: [id number] Cisatracurium 200 mg In 17.451 10.593 Sodium Chloride 0.9% 180 ml @ 1 MCG/KG/MIN 6.69 mls/hr IV .Q24H [facility] Rx#: [id number] Clevidipine Butyrate 25 1 mg In Empty Bag 1 bag @ 1 MG/HR 2 mls/hr IV .Q24H [facility] Rx#:[id number] Norepinephrine 8 mg In 1.834 126.288 Sodium Chloride 0.9% 250 ml @ 0.03 MCG/KG/MIN 6. 473 mls/hr IV .Q24H [facility] Rx#:[id number] Sodium Chloride 0.9% 1, 250 50 000 ml @ 50 mls/hr IV . Q20H [facility] Rx#:[id number] Sodium Chloride 0.9% 1, 1000 000 ml @ 999 mls/hr IV . Q1H1M [facility] Rx#:[id number] Sodium Chloride 0.9% 1, 1000 000 ml @ 999 mls/hr IV . Q1H1M [facility] Rx#:[id number] Vancomycin 1,750 mg In 501 Sodium Chloride 0.9% 500 ml 500 ml @ 167 mls/hr IVPB Q12H [facility] Rx#: [id number] propofoL 1,000 mg In 100 466.692 Empty Bag 1 bag @ 15 MCG/ KG/MIN 10.035 mls/hr IV . Q9H58M [facility] Rx#:[id number] Oral 480 Other 120 Output: Urine 415 1235 Other: Voiding Method Toilet Indwelling Catheter Indwelling Catheter Diaper Incontinent # Voids 2 # Bowel Movements 1 ABP, PAP, CO, CI - Last Documented Arterial Blood Pressure 138/47 - Exam Calm and comfortable and sedated and paralyzed. The patient has a left IJ triple-lumen catheter in place. HEENT examination is grossly unremarkable. Neck supple. Full range of motion. No adenopathy thyromegaly or neck vein distention. Cardiovascular examination reveals regular rhythm rate. S1-S2 normal. No S3 or S4. No discernible murmur noted. Lungs reveal coarse bilateral inspiratory and expiratory wheezes and rhonchi. No crackles. Breath sounds are equal bilaterally. Abdomen soft bowel sounds are heard. No masses or tenderness. Extremities are intact. No cyanosis clubbing or edema. Skin is without rash or lesion. Neurologic examination is brief but nonfocal. The patient is currently sedated and paralyzed. - Labs CBC & Chem 7: 10/07/22 04:42 10/07/22 04:42 Labs: Abnormal Lab Results - Last 24 Hours (Table) 10/06/22 10/06/22 10/06/22 Range/Units 11:08 12:05 12:05 WBC 13.0 H (3.8-10.6) k/uL RBC 3.60 L (3.80-5.40) m/uL Hgb (11.4-16.0) gm/dL Hct (34.0-46.0) % Plt Count 121 L D (150-450) k/uL Neutrophils # 12.2 H (1.3-7.7) k/uL Lymphocytes # 0.2 L (1.0-4.8) k/uL ABG pH 7.33 L (7.35-7.45) ABG pCO2 (35-45) mmHg ABG pO2 77 L (83-108) mmHg ABG HCO3 (21-25) mmol/L ABG Total CO2 (19-24) mmol/L ABG O2 Saturation 93.6 L (94-97) % Sodium 136 L (137-145) mmol/L Chloride (98-107) mmol/L BUN 25 H (7-17) mg/dL Glucose 203 H (74-99) mg/dL POC Glucose (mg/dL) (70-110) mg/dL Calcium 7.3 L (8.4-10.2) mg/dL Urine Protein (Negative) Urine Blood (Negative) Urine RBC (0-5) /hpf Urine WBC (0-5) /hpf Urine Bacteria (None) /hpf Hyaline Casts (0-2) /lpf Urine Mucus (None) /hpf 10/06/22 10/06/22 10/06/22 Range/Units 13:14 17:38 18:25 WBC (3.8-10.6) k/uL RBC (3.80-5.40) m/uL Hgb (11.4-16.0) gm/dL Hct (34.0-46.0) % Plt Count (150-450) k/uL Neutrophils # (1.3-7.7) k/uL Lymphocytes # (1.0-4.8) k/uL ABG pH (7.35-7.45) ABG pCO2 (35-45) mmHg ABG pO2 (83-108) mmHg ABG HCO3 (21-25) mmol/L ABG Total CO2 (19-24) mmol/L ABG O2 Saturation (94-97) % Sodium (137-145) mmol/L Chloride (98-107) mmol/L BUN (7-17) mg/dL Glucose (74-99) mg/dL POC Glucose (mg/dL) 204 H 189 H (70-110) mg/dL Calcium (8.4-10.2) mg/dL Urine Protein Trace H (Negative) Urine Blood Small H (Negative) Urine RBC 16 H (0-5) /hpf Urine WBC 14 H (0-5) /hpf Urine Bacteria Rare H (None) /hpf Hyaline Casts 31 H (0-2) /lpf Urine Mucus Rare H (None) /hpf 10/06/22 10/06/22 10/07/22 Range/Units 21:15 23:43 04:42 WBC (3.8-10.6) k/uL RBC (3.80-5.40) m/uL Hgb (11.4-16.0) gm/dL Hct (34.0-46.0) % Plt Count (150-450) k/uL Neutrophils # (1.3-7.7) k/uL Lymphocytes # (1.0-4.8) k/uL ABG pH (7.35-7.45) ABG pCO2 (35-45) mmHg ABG pO2 (83-108) mmHg ABG HCO3 (21-25) mmol/L ABG Total CO2 (19-24) mmol/L ABG O2 Saturation (94-97) % Sodium (137-145) mmol/L Chloride 110 H (98-107) mmol/L BUN 26 H (7-17) mg/dL Glucose 218 H (74-99) mg/dL POC Glucose (mg/dL) 208 H 210 H (70-110) mg/dL Calcium 6.8 L (8.4-10.2) mg/dL Urine Protein (Negative) Urine Blood (Negative) Urine RBC (0-5) /hpf Urine WBC (0-5) /hpf Urine Bacteria (None) /hpf Hyaline Casts (0-2) /lpf Urine Mucus (None) /hpf 10/07/22 10/07/22 10/07/22 Range/Units 04:42 06:18 06:24 WBC (3.8-10.6) k/uL RBC 3.02 L (3.80-5.40) m/uL Hgb 9.6 L D (11.4-16.0) gm/dL Hct 29.6 L (34.0-46.0) % Plt Count 58 L D (150-450) k/uL Neutrophils # (1.3-7.7) k/uL Lymphocytes # 0.2 L (1.0-4.8) k/uL ABG pH 7.33 L (7.35-7.45) ABG pCO2 49 H (35-45) mmHg ABG pO2 119 H (83-108) mmHg ABG HCO3 26 H (21-25) mmol/L ABG Total CO2 28 H (19-24) mmol/L ABG O2 Saturation 99.5 H (94-97) % Sodium (137-145) mmol/L Chloride (98-107) mmol/L BUN (7-17) mg/dL Glucose (74-99) mg/dL POC Glucose (mg/dL) 240 H (70-110) mg/dL Calcium (8.4-10.2) mg/dL Urine Protein (Negative) Urine Blood (Negative) Urine RBC (0-5) /hpf Urine WBC (0-5) /hpf Urine Bacteria (None) /hpf Hyaline Casts (0-2) /lpf Urine Mucus (None) /hpf Microbiology - Last 24 Hours (Table) 10/06/22 12:05 Blood Culture - Final Blood 10/06/22 18:25 Urine Culture - Preliminary Urine,Voided 09/30/22 22:35 Blood Culture - Final Blood No Growth after 144 hours Assessment and Plan Plan: Multifocal pneumonia post influenza A infection. The patient was infected with influenza and subsequently decompensated and developed diffuse bilateral pulmonary infiltrates, patchy areas of consolidation, suspicious for a bacterial infection. The patient also has gram-positive cocci in clusters in the blood. Patient is currently on Tamiflu, cefepime and vancomycin. Intubated on a mechanical ventilator and she is already sedated and paralyzed. There has been some improvement in the oxygenation since yesterday. Chest x-ray findings remain unchanged. Positive cocci in the blood, rule out staphylococcal septicemia History of atrial fibrillation. History of valvular heart disease with aortic valve replacement. History of heart failure. History of diabetes mellitus. Gastroesophageal reflux disease. Hyperlipidemia. Hypertension. History of sleep apnea syndrome. History of hypothyroidism. Obesity. Multiple other medical problems and comorbidities. Thrombocytopenia, with a previous history of ITP, currently on IV Solu-Medrol. Will monitor the platelet count and will keep the Lovenox for now for DVT prophylaxis Plan Event support and dropped FiO2 slowly, Doppler down to 80% we'll continue dropping FiO2 as long as the situation remains above 90% Continue propofol and give the patient had paralytic holiday today and see if we can get the patient off the paralytics Continue same antibiotic coverage which includes Tamiflu, cefepime and vancomycin Awaiting final results from the blood culture Continue bronchodilators Continue steroids with IV Solu-Medrol Awaiting the results of the pro calcitonin level The patient will need a bronchoscopy and bronchial lavage and this will be done today regarding concerns of a superinfection with bacteria The patient is off pressors for now Restart enteral feeding for nutritional support Family has been updated and will continue to follow make further recommendations based on her progress. There is a critical care evaluation that was done in more than 30 minutes. Time with Patient: Greater than 30
--- NOTE | 2022-10-07 07:49 | XR ---
EXAMINATION TYPE: XR chest 1V portable DATE OF EXAM: 10/07/2022 Comparison: 10/06/2022 Clinical History: 61 year-old female tube placement Findings: ET tube tip not well seen beyond the level of the medial clavicular heads. Median sternotomy wires ar e present. Prosthetic aortic valve. Heart remains enlarged. Patchy and confluent areas of bilateral a irspace disease similar to minimally improved from prior. Left CVC tip at the cavoatrial junction. Impression: Extensive patchy and confluent bilateral airspace disease is similar to minimally improved from prior .
[2022-10-07 08:04] LABS: Glucose,Whole Blood 219 mg/dL (70-110)
[2022-10-07] MEDS: INSULIN ASPART (NovoLOG) 100 UNIT/ML VIAL SQ SCH ×4 (08:04→23:31)
[2022-10-07] MEDS: INSULIN DETEMIR (LEVEMIR) 100 UNIT/ML SYR SQ SCH (08:04)
[2022-10-07] MEDS: FORMOTEROL FUMARATE 20 MCG/2 ML NEBU INHALATION SCH ×2 (08:45→19:04)
[2022-10-07] MEDS: BUDESONIDE 1 MG/2 ML NEBU INHALATION SCH ×2 (08:45→19:04)
[2022-10-07] MEDS: FERROUS SULFATE 325 MG TAB PO SCH ×2 (09:43→21:08)
[2022-10-07] MEDS: guaiFENesin 600 MG TABLET.ER PO SCH ×4 (09:44→21:09)
[2022-10-07] MEDS: CITALOPRAM HYDROBROMIDE 20 MG TAB PO SCH (09:59)
[2022-10-07] MEDS: CHLORHEXIDINE GLUCONATE 15 ML CUP MUCOUS MEM SCH ×2 (09:59→21:13)
[2022-10-07] MEDS: LEVOTHYROXINE 137 MCG TAB PO SCH (09:59)
[2022-10-07] MEDS: METOPROLOL TARTRATE 25 MG TAB PO SCH (10:00)
[2022-10-07] MEDS: ENOXAPARIN 40 MG/0.4 ML SYRINGE SQ SCH (10:00)
[2022-10-07] MEDS: DICYCLOMINE 10 MG CAP PO SCH ×3 (10:00→21:13)
[2022-10-07] MEDS: ACETAMINOPHEN TAB 325 MG TAB PO PRN (10:05)
[2022-10-07 11:02] LABS: Glucose,Whole Blood 211 mg/dL (70-110)
[2022-10-07] MEDS: CLEVIDIPINE BUTYRATE 25 MG in EMPTY BAG 1 BAG IV SCH (11:03)
[2022-10-07] MEDS: CISATRACURIUM 200 MG in SODIUM CHLORIDE 0.9% 180 ML IV SCH (11:23)
--- NOTE | 2022-10-07 12:23 | P.PCN ---
Date of Procedure: 10/07/22 Preoperative Diagnosis: Bilateral pneumonia Postoperative Diagnosis: bilateral pneumonia Procedure(s) Performed: Bronchoscopy with a bronchioloalveolar lavage of the right middle lobe Anesthesia: MAC Surgeon: Carlita Weller [employer]ite Renew[employer] Inspector #1: Kaycee Jimenez Disposition: ICU Operative Findings: This procedure was done in the intensive care unit. The patient was already intubated on a mechanical ventilator. The patient was on a combination of Nimbex on propofol for sedation and paralysis. The patient was placed on 100% FiO2 and following that is irregularly adapter was attached and orotracheal tube. The flexible bronchoscope was easily introduced through the orotracheal tube and was advanced to the lower trachea. His initial check a bronchial tree with him. There was no significant respiratory secretions identified. In fact, the airways were quite patent and free of any major secretions. The airway inspection included the distal trachea, bilateral mainstem bronchi, right upper lobe bronchus admitted lobe bronchus and right lower lobe bronchus and bronchus intermedius and the various 10 segments on the right and examination of the left side included the left upper lobe bronchus and left lower lobe bronchus and the various segments on the left. No endobronchial tumors or lesions. The bronchoscope was wedged into the lateral segment of the right middle lobe and a total of 100 mL of fluid was infused and the return was 20 mL. The aspirate was nonbloody. The patient tolerated the procedure well. No bifid competitions. Bronchoscope was removed and the patient was kept on a mechanical ventilator. The bronchial alveolar lavage will be sent for microbial cultures and analysis.
--- NOTE | 2022-10-07 13:05 | CA ---
Transthoracic Echo Report Name: Katerina Crabtree Age: 61 Gender: F : 1960 Exam Date: 10/07/2022 07:28 Exam Location: [place] [facility] Ht (in): 66 Wt (lb): 261 Ordering Physician: Rajesh Figueroa MD Attending/Referring Phys: Patient Admitting Clerk Kim Falcon RDCS Procedure CPT: Indications: Positive troponin Cardiac Hx: Technical Quality: Fair Contrast 1: Total Dose (mL): Contrast 2: Total Dose (mL): MEASUREMENTS (Male / Female) Normal Values 2D ECHO LV Diastolic Diameter PLAX 4.6 cm 4.2 - 5.9 / 3.9 - 5.3 cm LV Systolic Diameter PLAX 3.6 cm IVS Diastolic Thickness 1.4 cm 0.6 - 1.0 / 0.6 - 0.9 cm LVPW Diastolic Thickness 1.2 cm 0.6 - 1.0 / 0.6 - 0.9 cm LV Relative Wall Thickness 0.6 LVOT Diameter 1.7 cm LA Volume 98.2 cm??? 18 - 58 / 22 - 52 cm??? M-MODE Aortic Root Diameter MM 2.0 cm LA Systolic Diameter MM 4.5 cm LA Ao Ratio MM 2.2 DOPPLER AV Peak Velocity 357.1 cm/s AV Peak Gradient 51.0 mmHg AV Mean Velocity 242.5 cm/s AV Mean Gradient 26.6 mmHg AV Velocity Time Integral 67.7 cm LVOT Peak Velocity 174.8 cm/s LVOT Peak Gradient 12.2 mmHg LVOT Velocity Time Integral 36.9 cm LVOT Stroke Volume 86.9 cm??? LVOT Stroke Volume Index 38.8 ml/m??? LVOT Cardiac Index 3535.0 cm???/min???m??? AV Area Cont Eq vti 1.3 cm??? AV Area Cont Eq pk 1.2 cm??? MV Peak Velocity 179.3 cm/s MV Peak Gradient 12.9 mmHg MV Mean Velocity 131.7 cm/s MV Mean Gradient 7.4 mmHg MV Velocity Time Integral 41.6 cm MV Area PHT 3.0 cm??? Mitral E Point Velocity 141.2 cm/s Mitral A Point Velocity 146.2 cm/s Mitral E to A Ratio 1.0 MV Deceleration Time 224.8 ms MV E' Velocity 6.1 cm/s Mitral E to MV E' Ratio 23.0 TR Peak Velocity 258.4 cm/s TR Peak Gradient 26.7 mmHg Right Ventricular Systolic Press 31.7 mmHg FINDINGS Left Ventricle Moderately increased left ventricular wall thickness. Normal left ventricular systolic function with no obvious regional wall motion abnormalities. Left ventricular ejection fraction is estimated at 55 %. Right Ventricle Normal right ventricular size. Right ventricular systolic pressure within normal limits. Right Atrium Right atrium not well visualized. Left Atrium Severely increased left atrial volume. Mitral Valve Mild mitral stenosis. Moderate mitral annular calcification. Moderate mitral regurgitation. Aortic Valve Moderate aortic stenosis with a peak gradient of 51 mmHg and a mean gradient of 27 mmHg. Tricuspid Valve Structurally normal tricuspid valve. Mild tricuspid regurgitation. Pulmonic Valve Trace pulmonic regurgitation. Pericardium No pericardial effusion. Aorta Normal size aortic root and proximal ascending aorta. CONCLUSIONS Moderate increased left ventricular wall thickness Normal left ventricular ejection fraction 55% RVSP 31 Moderate mitral annular calcification Moderate mitral regurgitation Moderate aortic stenosis with mean gradient 27 mmHg Mild tricuspid regurgitation No pericardial effusion Previewed by: Dr. Darien Ambrosio DO (Electronically Signed) Final Date: 07 October 2022 13:04
--- NOTE | 2022-10-07 13:55 | P.PN ---
Progress Note - Text Progress Note Date: 10/07/22 This is 61-year-old white female with history of depression and bipolar disorder who has history of GI bleed in the past who came in after two-week history of worsening sickness. The patient states upper respiratory congestion. The patient supposedly has had transfusion in about 3-4 months ago due to GI bleed with cauterization. Question element of AV malformation. The patient is new to me. She is nonsmoker. No known sick contacts are stated. She is resting comfortably in her stretcher today. She is a nonsmoker. 10/02/2022 Patient is seen and evaluated and follow-up covering for Dr. Alvin Hartley and patient coming in with worsening generalized weakness and upper respiratory abbe estion. Pulmonary is following and patient was continued on breathing treatments along with IV steroids and being treated for acute flu. Last reviewed and stable. Patient is continued on 2 L nasal cannula with continued congestion and cough. Patient denies chest pain or palpitations. Patient has been up to the bathroom. No reports of nausea or vomiting noted. Wean FiO2 as tolerated. 10/03/2022 She is seen and evaluated in follow-up today with pulmonary following. Patient is maintained on room air maintaining 92-93%. Blood sugars mildly elevated and will continue with current regimen. Patient is continued on IV Solu-Medrol at 60 mg every 6 along with DuoNeb treatments. We'll obtain a chest x-ray today. Patient is currently afebrile denies chest pain or palpitations. Patient c ontinues to have a cough with generalized fatigue and dyspnea with exertion and encourage the patient to increase activity as tolerated. Encourage oral intake and will discuss possible discharge in the next 24-48 hours 10/04/2022 Patient is seen and evaluated and follow-up with pulmonary following. Patient has been maintained on IV steroids and continues to be short of breath with minimal exertion. Patient requiring 2-3 L via nasal cannula reports she does not normally wear oxygen the outpatient setting. Chest x-ray from yesterday showed atelectasis versus pulmonary edema and was given a dose of Lasix. Patient will be given a dose of Lasix today. Patient reports she has been urinating more frequently since the last dose. Repeat BNP today is 1020 magnesium is 1.7. Blood sugars are elevated and maintained on sliding scale and will add low-dose long-acting given the steroids. Recommend Accu-Cheks before meals and at bedtime and close monitoring. Patient is afebrile denies chest pain or palpitations. Patient continues to report shortness of breath and difficulty in breathing. Patient denies nausea or vomiting and tolerating diet. 10/05/2022: I assumed care of the patient today. Sitting up in a recliner. Short of breath. Wheezing. Change to nebulized form off Perforomist and Pulmicort. Increase DuoNeb to every 4. Warm water with salt gargle. Patient is having significant coughing and throat pain. Follow with pulmonary. 10/06/2022: 100 this morning patient became more and more short of breath. Wheezing. Hypoxic. Was put on a BiPAP nonrebreather. As per Mr. has deteriorated patient smoked with ICU intubated. Put on cleviprex drip and Nimbex. On 100% FiO2. Being followed by [facility]. 10/07/2022: ICU. Intubated. FiO2 100 a PEEP of 10. Under underwent bronchoscopy by Dr. Weller. No major findings. Current drips include propofol and Nimbex. Patient's of levo fed. No secretions. Discussed with the patient's daughter at the bedside. Doppler ultrasound lower extremity ordered. Empirically on IV cefepime Active Medications Acetaminophen (Acetaminophen Tab 325 Mg Tab) 650 mg PO Q6HR PRN PRN Reason: Mild Pain or Fever > 100.5 Last Admin: 10/07/22 10:05 Dose: 650 mg Hydrocodone Bitart/Acetaminophen (Hydrocodone/Apap 5-325mg 1 Each Tab) 1 each PO Q4H PRN PRN Reason: Pain Last Admin: 10/03/22 17:00 Dose: 1 each Albuterol/Ipratropium (Ipratropium-Albuterol 3 Ml Neb) 3 ml INHALATION RT-Q4H [facility] Last Admin: 10/07/22 10:51 Dose: 3 ml Artificial Tears (Artificial Tears-Hypromellose Drops 15 Ml Btl) 2 [address]YES Q4[address] [facility] Last Admin: 10/07/22 11:13 Dose: 2 drops Atorvastatin Calcium (Atorvastatin 40 Mg Tab) [address] [facility] Last Admin: 10/06/22 21:34 Dose: 40 mg Budesonide (Budesonide 1 Mg/2 Ml Nebu) 1 mg INHALATION RT-BID [facility] Last Admin: 10/07/22 08:45 Dose: 1 mg Chlorhexidine Gluconate (Chlorhexidine Gluconate 15 Ml Cup) [address] [facility] Last Admin: 10/07/22 09:59 Dose: 15 ml Citalopram Hydrobromide (Citalopram Hydrobromide 20 Mg Tab) [address] [facility] Last Admin: 10/07/22 09:59 Dose: 40 mg Cyclobenzaprine HCl (Cyclobenzaprine 10 Mg Tab) 10 mg PO TID PRN PRN Reason: Muscle Pain Dextrose/Water (Dextrose 50% Syringe 50 Ml) 25 ml IVP PER PROTOCOL PRN; Protocol PRN Reason: Hypoglycemia Dextrose/Water (Dextrose 50% Syringe 50 Ml) 50 ml IVP PER PROTOCOL PRN; Protocol PRN Reason: Hypoglycemia Dicyclomine HCl (Dicyclomine 10 Mg Cap) [address] [facility] Last Admin: 10/07/22 10:00 Dose: 10 mg Enoxaparin Sodium (Enoxaparin 40 Mg/0.4 Ml Syringe) [address] [facility] Last Admin: 10/07/22 10:00 Dose: 40 mg Ferrous Sulfate (Ferrous Sulfate 325 Mg Tab) [address] [facility] Last Admin: 10/07/22 09:43 Dose: Not Given Formoterol Fumarate (Formoterol Fumarate 20 Mcg/2 Ml Nebu) 20 mcg INHALATION RT-BID [facility] Last Admin: 10/07/22 08:45 Dose: 20 mcg Guaifenesin (Guaifenesin 600 Mg Tablet.Er) [address] [facility] Last Admin: 10/07/22 12:31 Dose: Not Given Propofol 1,000 mg/ IV Solution 100 mls @ 10.035 mls/hr IV .Q9H58M [facility]; Protocol Last Admin: 10/07/22 12:52 Dose: 50 mcg/kg/min, 33.45 mls/hr Vancomycin HCl 1,750 mg/ (Sodium Chloride) 500 mls @ 167 mls/hr IVPB Q12H [facility] Last Admin: 10/07/22 11:14 Dose: 167 mls/hr Clevidipine 25 mg/ IV Solution 50 mls @ 2 mls/hr IV .Q24H [facility]; Protocol Last Admin: 10/07/22 11:03 Dose: Not Given Cisatracurium Besylate 200 mg/ (Sodium Chloride) 200 mls @ 6.69 mls/hr IV .Q24H [facility]; Protocol Last Titration: 10/07/22 12:54 Dose: 0.5 mcg/kg/min, 3.345 mls/hr Sodium Chloride (Saline 0.9%) 1,000 mls @ 50 mls/hr IV .Q20H [facility] Last Admin: 10/07/22 01:30 Dose: 50 mls/hr Cefepime HCl 2 gm/ Sodium (Chloride) 100 mls @ 25 mls/hr IVPB Q8H [facility]; Protocol Last Admin: 10/07/22 11:14 Dose: 25 mls/hr Norepinephrine Bitartrate 8 mg (/ Sodium Chloride) 258 mls @ 6.473 mls/hr IV .Q24H [facility]; Protocol Last Titration: 10/07/22 06:55 Dose: 0 mcg/kg/min, 0 mls/hr Insulin Aspart (Insulin Aspart (Novolog) 100 Unit/Ml Vial) [address] [facility]; Protocol Last Admin: 10/07/22 11:14 Dose: 4 unit Insulin Detemir (Insulin Detemir (Levemir) 100 Unit/Ml Syr) 10 unit SQ DAILY@0700 [facility] Last Admin: 10/07/22 08:04 Dose: 10 unit Levothyroxine Sodium (Levothyroxine 137 Mcg Tab) 137 mcg PO DAILY@0630 [facility] Last Admin: 10/07/22 09:59 Dose: 137 mcg Loratadine (Loratadine 10 Mg Tab) [address] [facility] Last Admin: 10/06/22 21:34 Dose: 10 mg Methylprednisolone Sodium Succinate (Methylprednisolone Sod Succi 125 Mg/2 Ml Vial) [address] [facility] Last Admin: 10/07/22 11:24 Dose: 60 mg Metoprolol Tartrate (Metoprolol Tartrate 25 Mg Tab) 37.[address] [facility] Last Admin: 10/07/22 10:00 Dose: 37.5 mg Miscellaneous Information (Potassium Replacement Protocol 1 Each Misc) 1 each MISCELLANE DAILY PRN PRN Reason: Per Protocol Miscellaneous Information (Magnesium Replacement Protocol 1 Each Misc) 1 each MISCELLANE DAILY PRN; Protocol PRN Reason: Per Protocol Miscellaneous Information (Phosphorus Replacement Protoco 1 Each Misc) 1 each MISCELLANE DAILY PRN; Protocol PRN Reason: Per Protocol Naloxone HCl (Naloxone 0.4 Mg/Ml 1 Ml Vial) 0.2 mg IV Q2M PRN PRN Reason: Opioid Reversal Dulaglutide [ Trulicity] 0.75 Mg/0 .5 Ml Each 0.[address] [facility] Last Admin: 10/03/22 17:38 Dose: 0.75 mg Ondansetron HCl (Ondansetron 4 Mg/2 Ml Vial) 4 mg IVP Q8HR PRN PRN Reason: Nausea And Vomiting Quetiapine Fumarate (Quetiapine 100 Mg Tab) [address] [facility] Last Admin: 10/07/22 00:33 Dose: 100 mg On examination: VITAL SIGNS: [Afebrile, 88, 26, 1 27 x 59, 95% on the ventilator GENERAL APPEARANCE: Laying in bed, intubated, ET tube HEENT: Normal external appearance of nose and ear. Oral cavity normal EYES: Pupils equal. Conjunctiva normal. NECK: JVD not raised. Mass not palpable. RESPIRATORY: Respiratory effort increased. Lungs breath sounds, wheezing, crackles CARDIOVASCULAR: First and second sounds normal. No edema. ABDOMEN: Soft. Liver and spleen not palpable. No tenderness. No mass palpable. PSYCHIATRY: Sedated INVESTIGATIONS, reviewed in the clinical context: 10/07/2022: WBC 5.8 hemoglobin 9.6 platelets 584 0.5 BUN 26 creatinine 0.05 Bronchoscopy: Essentially unremarkable 10/06/2022: PH 7.3 pO2 77 FiO2 100%. Chest x-ray film. Bilateral infiltrate Sodium 136 potassium 3.8 creatinine 0.7 Chest x-ray film personally reviewed by me-scattered fine infiltrates Influenza A positive Assessment and plan: -Acute severe Influenza a pneumonitis -Acute severe COPD exacerbation in an ex-smoker: Slow to respond DuoNeb to every 4, nebulized Pulmicort and Perforomist, IV Solu-Medrol -Possible secondary bacterial pneumonia Empirically on cefepime and IV vancomycin. Status post bronchoscopy -Troponinemia, type II [place]. -Acute hypoxic respiratory failure secondary to COPD and influenza A: Not improving Patient intubated [October 06] -Chronic normocytic anemia -Chronic ITP Follow platelets -Essential Hypertension Lopressor -Lactic acidosis, improved -Nonalcoholic steatohepatitis -Status post aortic valve replacement history -Hyperlipidemia Lipitor -Hypothyroid Synthroid 137 g -Diabetes mellitus type 2 Continue Trulicity. Follow Accu-Cheks with sliding scale -Obesity BMI 36.3 Weight loss measures -Full code Intubated. ICU. IV cefepime. IV Nimbex. IV propofol. IV Solu-Medrol. IV vancomycin. Prognosis guarded
[2022-10-07] MEDS: NOREPINEPHRINE 8 MG in SODIUM CHLORIDE 0.9% 250 ML IV SCH (18:00)
[2022-10-07 18:12] LABS: Glucose,Whole Blood 221 mg/dL (70-110)
[2022-10-07] MEDS: LORATADINE 10 MG TAB PO SCH (21:13)
[2022-10-07] MEDS: ATORVASTATIN 40 MG TAB PO SCH (21:13)
--- NOTE | 2022-10-07 21:50 | US ---
EXAMINATION TYPE: US venous doppler duplex LE DATE OF EXAM: 10/07/2022 7:36 PM COMPARISON: NONE CLINICAL HISTORY: DVT. ICU patient on a vent. Limited due to pt body habitus SIDE PERFORMED: Bilateral TECHNIQUE: The lower extremity deep venous system is examined utilizing real time linear array sonog dangelo with graded compression, doppler sonography and color-flow sonography. VESSELS IMAGED: Common Femoral Vein Deep Femoral Vein Greater Saphenous Vein * Femoral Vein Popliteal Vein Small Saphenous Vein * Proximal Calf Veins (* superficial vessels) FINDINGS: Grayscale, color doppler, spectral doppler imaging performed of the deep veins of the lower extremities. There is normal flow, compressibility, vascular waveforms. IMPRESSION: Negative for DVT, bilateral lower extremities.
[2022-10-07 23:20] LABS: Glucose,Whole Blood 228 mg/dL (70-110)
[2022-10-08] MEDS: IPRATROPIUM-ALBUTEROL 3 ML NEB INHALATION SCH ×6 (03:17→23:33)
[2022-10-08] MEDS: CEFEPIME 2 GM in SODIUM CHLORIDE 0.9% 100 ML IVPB SCH ×3 (03:46→22:21)
[2022-10-08] MEDS: ARTIFICIAL TEARS-HYPROMELLOSE DROPS 15 ML BTL BOTH EYES SCH ×5 (03:47→22:21)
[2022-10-08] MEDS: HYDROcodone/APAP 5-325MG 1 EACH TAB PO PRN (03:59)
[2022-10-08 04:30] LABS: Appearance,BF Blood Tinged
[2022-10-08 05:24] LABS: African American GFR (CKD) >90 (>60 ml/min/1.73 sqM); Anion Gap 2 mmol/L; Blood Urea Nitrogen 41 mg/dL (7-17); Calcium 6.8 mg/dL (8.4-10.2); Carbon Dioxide 25 mmol/L (22-30); Chloride 110 mmol/L (98-107); Glucose 252 mg/dL (74-99); Non-African American GFR(CKD) >90 (>60 ml/min/1.73 sqM); Potassium 4.6 mmol/L (3.5-5.1); Sodium 137 mmol/L (137-145)
[2022-10-08 05:25] LABS: ABG Base Excess -0.8 mmol/L; ABG HCO3 25 mmol/L (21-25); ABG Oxygen Saturation 92.3 % (94-97); ABG PCO2 47 mmHg (35-45); ABG PH 7.33 (7.35-7.45); ABG PO2 65 mmHg (83-108); ABG TCO2 27 mmol/L (19-24)
[2022-10-08 05:32] LABS: Allen Test Performed? no
[2022-10-08 05:56] LABS: Glucose,Whole Blood 253 mg/dL (70-110)
[2022-10-08] MEDS: methylPREDNISolone SOD SUCCI 125 MG/2 ML VIAL IV SCH ×3 (06:07→17:50)
[2022-10-08] MEDS: INSULIN ASPART (NovoLOG) 100 UNIT/ML VIAL SQ SCH ×3 (06:07→18:02)
[2022-10-08 06:37] LABS: HCT 28.7 % (34.0-46.0); HGB 9.3 gm/dL (11.4-16.0); Hypochromasia Marked; MCH 32.6 pg (25.0-35.0); MCHC 32.6 g/dL (31.0-37.0); Mean Platelet Volume 11.1; Poikilocytosis Slight; RBC 2.87 m/uL (3.80-5.40); RDW 14.4 % (11.5-15.5); WBC 3.9 k/uL (3.8-10.6)
[2022-10-08 06:38] LABS: Platelet Count 53 k/uL (150-450)
[2022-10-08] MEDS ORDERED: FUROSEMIDE 10 MG/ML 4 ML VIAL IV STA (06:58)
--- NOTE | 2022-10-08 06:58 | P.PN ---
Subjective Progress Note Date: 10/08/22 61-year-old female who presented to the emergency department on September 30, complaining of shortness of breath. The patient hasn't been feeling well for about 2 weeks. The patient came into the ER, because over the last couple of days, her symptoms progressed. She was coughing, wheezing, and very short of breath. Apparently tested positive for influenza A. We see her in the emergency room, room 26. She is on room air. She's not receiving any IV fluids. The patient has a history of atrial fibrillation, CHF, diabetes, GERD, hyperlipidemia, hypertension, osteoarthritis, fatty liver, and sleep apnea, among other things. White count 2, hemoglobin 10.4, hematocrit 31.3, and platelet count 71,000 PT 15.4, INR 1.5, and PTT is 31.9. Sodium 136, potassium 4.3, chlorides 109, CO2 20, BUN 11, creatinine 0.65. Lactic acid was 2.7, repeat was 3.5. Calcium 7.8. Troponin 0.167. Urine was negative. Influenza A studies were positive. Chest x-ray, and our opinion, was essentially normal. The patient is seen today 10/02/2022 in follow-up on the selective care unit. She is currently resting comfortably in bed. Awake and alert in no acute distress. She is still quite fatigued. She is still congested and coughing. She is maintaining O2 saturations in the 90s on 2 L/m per nasal cannula. Normal saline at 100 ML's per hour. She is recovering from influenza A. Blood cultures reveal no growth. White count 3.0. Hemoglobin 9.5. Platelets 53,000. Sodium 140. Potassium 4.4. Bicarb 19. BUN 16. Creatinine 0.54. Glucose 153. She is continued on DuoNeb inhalations, IV Solu-Medrol. Progress note dated 10/03/2022. 61-year-old female admitted with a diagnosis of influenza A. The patient was quite bronchospastic when she was initially seen in the emergency room. She is a bit improved today, but still short of breath. She is on room air. Saturations are 93%. She's getting saline at 100 mL an hour. We placed her on corticosteroids, and breathing treatments, and we are hopeful for discharge in the next 24-48 hours. Laboratory data today includes a glucose of 174. Progress note dated 10/04/2022. The diagnosis of bronchospasm and bronchial inflammation, secondary to injury last couple of days. She is on appropriate medications. The patient is getting 2 L of oxygen. We'll repeat an N-terminal proBNP today, and also give her Lasix 40 mg IV push. The patient's on 2 L. She's not receiving any IV fluids. Labs today include a glucose of 303. I'm reevaluating this patient today on 10/05/2022 on a general medical floor. Patient is reporting that she feels slightly worse today, she is up in the chair, on 3 L nasal cannula. She has coarse rhonchi and wheezes throughout. She continues to have a persistent nonproductive cough. Blood cultures are negative at 96 hours. No new CBC today. BMP from today shows sodium 136, potassium 3.8, chloride 102, serum CO2 25, BUN 18.8, creatinine 0.7, glucose 166. Patient's BNP from yesterday was 1020. She did receive a one-time dose of IV Lasix yesterday. Patient's chest x-ray from today continues to show some mild cardiomegaly with mild interstitial edema. Patient continues to receive DuoNeb inhalation, budesonide inhalation, formoterol inhalation, IV Solu-Medrol, Mucinex. She is receiving Lovenox for DVT prophylaxis. She's not receiving any IV maintenance fluids. Patient remains hemodynamically stable. 10/06/2022, the patient acutely became short of breath. The patient was hospitalized on 09/30/2022 for shortness of breath. The patient check positive for influenza A. The patient is known to have fatty liver, obstructive sleep apnea, chronic into fibrillation, CHF and diabetes mellitus and hypertension and hyperlipidemia. The patient was being treated with Tamiflu, DuoNeb treatments [id number] and IV Solu-Medrol. The patient this morning became acutely short of breath. The patient was given initial dose of Lasix. Nevertheless, the patient was Tachypneic using excessive amounts of breathing and for that reason patient was placed on a BiPAP pressure of 14 cm of water with an FiO2 of 100% and patient is currently being transferred to the intensive care unit. Obviously, the patient was made intubation mechanical ventilation. She is quite obtunded at this point in time. Her respiratory rate is in the mid 40s and she is very tachypneic and short of breath. Labs are not available from today. Labs from yesterday was noted. Meanwhile a chest x-ray was done and based on my review of the chest x-ray, patchy bilateral pulmonary infiltrates., Cannot rule out CHF versus viral pneumonia. Based on her records, the patient COPD is moderately severe and the patient is an FEV1 of 64% of predicted. She has had previous hospitalizations with respiratory distress requiring BiPAP therapy for respiratory support. She also has an aortic valve replacement that was done on 04/30/2019. On 10/07/2022, the patient is being seen for a follow-up. As mentioned yesterday, there was obvious decompensation the patient is post status. The patient developed extensive multifocal pneumonia and for that reason the patient had to be intubated and placed on a mechanical ventilator. This morning, she is on propofol which is running at 50 mcg/kg/m and the patient is also paralyzed as the patient was quite a successful the mechanical ventilator. Nimbex is running at 1 mcg/kg/m. She is very much interested a mechanical ventilator. She is adequately paralyzed and sedated. She is on assist-control mode of mechanical ventilation at the rate of 26, tidal volume of 400, FiO2 of 90% with a PEEP of 10. Blood gases showed some mild improvement in oxygenation. PH is at 7.33 with a pCO2 of 49 and pO2 of 119. The peak airway pressure is at 28. Meanwhile, the patient's is currently on broad-spectrum antibiotics. On yesterday's evaluation, I started the patient a combination of cefepime and vancomycin suspecting a superinfection on top of the influenza pneumonia. Gram- positive cocci in chains and clusters and oriented the identified in the blood and we are still awaiting final cultures and sensitivities. Meanwhile, the patient has not required any pressors. She did require pressors earlier post intubation and this morning she is off pressors. IV fluids are in the form of normal saline running at the rate of 50 mL an hour. She is still nothing by mouth. White cell count of 5.8 with a hemoglobin of 9.6 and a platelet count of 58 and there is a significant drop in the platelet count from yesterday. Nevertheless, on and off, the patient's platelet counts have been low. BUN is at 26 with a creatinine of 0.6 and a sodium level is at 137. Legionella urine antigen has been negative. Pro-calcitonin level checked yesterday is still pending. On 10/08/2022, the patient is being seen for a follow-up. She remains intubated on a mechanical ventilator. She remains sedated and paralyzed. This morning, the patient is on propofol running at 50 mcg/kg/m. She is still requiring paralytics. She was given a paralytic holiday yesterday and she became quite asynchronous with mechanical ventilator and she desaturated. Based on that, the dose of Librax was adjusted and currently Nimbex is running at 1 mcg/kg/m. She is adequately paralyzed at this point in time and she is quite successful mechanical ventilator. Meanwhile, she remains on assist-control mode at a rate of 26 with a tidal volume of 400 and FiO2 of 60% with a PEEP of 10. The blood gas shows pH of 7.33 with a pCO2 of 47 and pO2 of 65. The repeat chest x-ray from today shows adequate positioning of 82. She did have some issues with cough leak and this was adjusted overnight. On the x-ray today the right sided pulmonary infiltrate is improved. There is improvement in the right upper lobe and right lower lobe pulmonary infiltration. Left perihilar area and the left lower lobe area remains unchanged. meanwhile, she underwent a bronchoscopy yesterday. The results of the bronchial lavage are still pending. There is some gram-positive cocci growing and there is also staph aureus in the blood. Her current antibiotic coverage included a combination of cefepime and vancomy molly. She was hypothermic earlier with a drop in the temperature down to 95 and she was given external warming. Meanwhile, her the least count is at 3.9 with a hemoglobin of 9.3 which is stable and the platelet count is not resulted yet. BUN is 41 with a creatinine of 0.6 and sodium is at 137 and a serum bicarb is at 25. She is on no pressors for now. IV fluids are in the form of normal saline at rate of 50 mL an hour. Her overall fluid balance is +3.3 L over the past 24 hours. Doppler of the lower extremity was negative and the echocardiogram that was done yesterday showed a preserved LV function with ejection fraction of 55%. There was moderate LV wall thickness. Moderate calcification of the mitral valve and regurgitation, moderate aortic stenosis with a gradient of 27. No evidence of any pericardial effusion. She is also receiving enteral feeding for nutritional support and currently she is on vital HP at the rate of 20 Objective - Vital Signs Vital signs: Vital Signs Temp 98.6 F 10/08/22 06:00 Pulse 102 H 10/08/22 06:00 Resp 26 H 10/08/22 06:00 BP 155/61 10/08/22 06:00 Pulse Ox 90 L 10/08/22 06:00 FiO2 60 10/08/22 04:00 Intake & Output 10/07/22 10/07/22 10/08/22 06:59 18:59 06:59 Intake Total 2059.573 3699.702 1650.881 Output Total 1235 325 550 Balance 764.349 9930.419 1593.881 Weight 118.5 kg 118.5 kg 124.9 kg Intake: IV 1186 1169 1372 0.9NS Pressure Bag 36 69 72 Cefepime 2 gm In Sodium 100 200 Chloride 0.9% 100 ml @ 25 mls/hr IVPB Q12HR [facility] Rx #:[id number] Sodium Chloride 0.9% 1, 550 600 600 000 ml @ 50 mls/hr IV . Q20H [facility] Rx#:[id number] Vancomycin 1,750 mg In 500 500 500 Sodium Chloride 0.9% 500 ml 500 ml @ 167 mls/hr IVPB Q12H [facility] Rx#: [id number] Intake, IV Titration 753.573 506.419 411.881 Amount Cefepime 2 gm In Sodium 100 Chloride 0.9% 100 ml @ 25 mls/hr IVPB Q8H [facility] Rx#: [id number] Cisatracurium 200 mg In 10.593 115.961 53.966 Sodium Chloride 0.9% 180 ml @ 1 MCG/KG/MIN 6.69 mls/hr IV .Q24H [facility] Rx#: [id number] Norepinephrine 8 mg In 126.288 Sodium Chloride 0.9% 250 ml @ 0.03 MCG/KG/MIN 6. 473 mls/hr IV .Q24H [facility] Rx#:[id number] Sodium Chloride 0.9% 1, 50 000 ml @ 50 mls/hr IV . Q20H [facility] Rx#:[id number] propofoL 1,000 mg In 466.692 390.458 357.915 Empty Bag 1 bag @ 15 MCG/ KG/MIN 10.035 mls/hr IV . [id number] [facility] Rx#:[id number] Tube Feeding 60 210 Other 120 60 150 Output: Urine 1235 325 550 Other: Voiding Method Indwelling Catheter Indwelling Catheter Indwelling Catheter ABP, PAP, CO, CI - Last Documented Arterial Blood Pressure 168/51 - Exam Calm and comfortable and sedated and paralyzed. The patient has a left IJ triple-lumen catheter in place. HEENT examination is grossly unremarkable. Neck supple. Full range of motion. No adenopathy thyromegaly or neck vein distention. Cardiovascular examination reveals regular rhythm rate. S1-S2 normal. No S3 or S4. No discernible murmur noted. Lungs reveal coarse bilateral inspiratory and expiratory wheezes and rhonchi. No crackles. Breath sounds are equal bilaterally. Abdomen soft bowel sounds are heard. No masses or tenderness. Extremities are intact. No cyanosis clubbing or edema. Skin is without rash or lesion. Neurologic examination is brief but nonfocal. The patient is currently sedated and paralyzed. - Labs CBC & Chem 7: 10/08/22 04:47 10/08/22 04:47 Labs: Abnormal Lab Results - Last 24 Hours (Table) 10/07/22 10/07/22 10/07/22 Range/Units 08:02 11:01 18:10 RBC (3.80-5.40) m/uL Hgb (11.4-16.0) gm/dL Hct (34.0-46.0) % ABG pH (7.35-7.45) ABG pCO2 (35-45) mmHg ABG pO2 (83-108) mmHg ABG Total CO2 (19-24) mmol/L ABG O2 Saturation (94-97) % Chloride (98-107) mmol/L BUN (7-17) mg/dL Glucose (74-99) mg/dL POC Glucose (mg/dL) 219 H 211 H 221 H (70-110) mg/dL Calcium (8.4-10.2) mg/dL 10/07/22 10/08/22 10/08/22 Range/Units 23:19 04:47 04:47 RBC 2.87 L (3.80-5.40) m/uL Hgb 9.3 L (11.4-16.0) gm/dL Hct 28.7 L (34.0-46.0) % ABG pH (7.35-7.45) ABG pCO2 (35-45) mmHg ABG pO2 (83-108) mmHg ABG Total CO2 (19-24) mmol/L ABG O2 Saturation (94-97) % Chloride 110 H (98-107) mmol/L BUN 41 H (7-17) mg/dL Glucose 252 H (74-99) mg/dL POC Glucose (mg/dL) 228 H (70-110) mg/dL Calcium 6.8 L (8.4-10.2) mg/dL 10/08/22 10/08/22 Range/Units 05:22 05:55 RBC (3.80-5.40) m/uL Hgb (11.4-16.0) gm/dL Hct (34.0-46.0) % ABG pH 7.33 L (7.35-7.45) ABG pCO2 47 H (35-45) mmHg ABG pO2 65 L (83-108) mmHg ABG Total CO2 27 H (19-24) mmol/L ABG O2 Saturation 92.3 L (94-97) % Chloride (98-107) mmol/L BUN (7-17) mg/dL Glucose (74-99) mg/dL POC Glucose (mg/dL) 253 H (70-110) mg/dL Calcium (8.4-10.2) mg/dL Microbiology - Last 24 Hours (Table) 10/07/22 11:52 Gram Stain - Preliminary Bronchial Washings - Right Bronchial Washings Culture - Preliminary 10/07/22 11:52 Fungal Culture - Preliminary Bronchoalviolar Lavage - Right 10/07/22 11:52 Acid Fast Bacilli Culture - Preliminary Bronchoalviolar Lavage - Right 10/06/22 12:05 Blood Culture Gram Stain - Preliminary Blood Blood Culture - Preliminary Staphylococcus aureus 10/06/22 12:05 Blood Culture - Final Blood 10/06/22 18:25 Urine Culture - Preliminary Urine,Voided 09/30/22 22:35 Blood Culture - Final Blood No Growth after 144 hours Assessment and Plan Plan: Multifocal pneumonia post influenza A infection. The patient was infected with influenza and subsequently decompensated and developed diffuse bilateral pulmonary infiltrates, patchy areas of consolidation, suspicious for a bacterial infection. The patient also has gram-positive cocci in clusters in the blood. Patient is currently on Tamiflu, cefepime and vancomycin. Intubated on a mechanical ventilator and she is already sedated and paralyzed. There has been some improvement in the oxygenation since yesterday. Chest x-ray findings remain unchanged. Staph Aureus sepsis, awaiting final sensitivities and the patient is currently on a combination of cefepime and vancomycin History of atrial fibrillation. Current rhythm is sinus History of valvular heart disease with aortic valve replacement. The repeat echocardiogram shows moderate degree of aortic valve stenosis History of heart failure. Left ventricle ejection fraction is preserved at 55% History of diabetes mellitus. The patient is currently having elevated blood sugars. She is on Levemir 10 units and a sliding scale coverage. I'm going to increase Levemir up to 20 units. Gastroesophageal reflux disease. Hyperlipidemia. Hypertension. History of sleep apnea syndrome. History of hypothyroidism. Obesity. Multiple other medical problems and comorbidities. Thrombocytopenia, with a previous history of ITP, currently on IV Solu-Medrol. Will monitor the platelet count and will keep the Lovenox for now for DVT prophylaxis Plan Continue ventilator support and increase the PEEP up to 12. Chest x-ray was reviewed and there is some limited improvement in the right side. There may be a component of staphylococcal pneumonia and the patient will be kept on cefepime and vancomycin pending further cultures and sensitivities IV fluids to KVO Give the patient was of Lasix 40 mg IV push Keep sedation with propofol Keep paralytic for another 24 hours Continue the IV Solu-Medrol Continue Tamiflu cefepime and vancomycin Echocardiogram was adequate and the Doppler of the lower oximetry is were negative Continue enteral feeding for nutritional support No pressors for now Increase Levemir to 20 units and continue the sliding scale coverage for hepatic blood sugar control We'll continue to follow. Condition remains critical and the main communicating with the family on a regular basis. Family has been updated and will continue to follow make further recommendations based on her progress. There is a critical care evaluation that was done in more than 30 minutes. Time with Patient: Greater than 30
--- NOTE | 2022-10-08 07:03 | XR ---
EXAMINATION TYPE: XR chest 1V portable DATE OF EXAM: 10/08/2022 5:49 AM COMPARISON: Chest radiographs from 10/07/2022 TECHNIQUE: XR chest 1V portable Portable AP radiograph of the chest. CLINICAL INDICATION:Female, 61 years old with history of Tube placement; FINDINGS: Lungs/Pleura: Blunting of the left costophrenic angle with similar to minimally improved patchy areas of bilateral airspace disease. No pneumothorax. Pulmonary vascularity: Unremarkable. Heart/mediastinum: Cardiomediastinal silhouette is stable and enlarged. Prosthetic aortic valve. Lef t atrial appendage clip. Musculoskeletal: No acute osseous pathology. Midline sternotomy wires are noted and stable. Other findings: None Lines/Tubes: Endotracheal tube in stable position with distal tip at the level of the inferior aspect of the clavi cular heads. Nasogastric tube with its distal tip and side-port projecting under the diaphragm. Left internal jugular central venous catheter with distal tip at the superior cavoatrial junction. IMPRESSION: 1. Small left pleural effusion with similar to minimally improved extensive patchy and confluent daja ateral airspace disease. 2. Stable support lines and tubes.
[2022-10-08] MEDS: HYDROmorphone 0.5 MG/0.5 ML SYRINGE IVP PRN (08:13)
[2022-10-08] MEDS: INSULIN DETEMIR (LEVEMIR) 100 UNIT/ML SYR SQ SCH (08:22)
[2022-10-08] MEDS: guaiFENesin 600 MG TABLET.ER PO SCH (08:38)
[2022-10-08] MEDS ORDERED: INSULIN DETEMIR (LEVEMIR) 100 UNIT/ML SYR SQ ONE (09:00)
[2022-10-08] MEDS: DICYCLOMINE 10 MG CAP PO SCH ×2 (09:05→19:12)
[2022-10-08] MEDS: CHLORHEXIDINE GLUCONATE 15 ML CUP MUCOUS MEM SCH ×2 (09:05→22:21)
[2022-10-08] MEDS: METOPROLOL TARTRATE 25 MG TAB PO SCH (09:06)
[2022-10-08] MEDS: ENOXAPARIN 40 MG/0.4 ML SYRINGE SQ SCH (09:07)
[2022-10-08] MEDS: CITALOPRAM HYDROBROMIDE 20 MG TAB PO SCH (09:07)
[2022-10-08] MEDS: LEVOTHYROXINE 137 MCG TAB PO SCH (09:07)
[2022-10-08] MEDS: FORMOTEROL FUMARATE 20 MCG/2 ML NEBU INHALATION SCH ×2 (09:16→19:38)
[2022-10-08] MEDS: BUDESONIDE 1 MG/2 ML NEBU INHALATION SCH ×2 (09:16→19:38)
[2022-10-08] MEDS: guaiFENesin SYRUP 100MG/5ML 200 MG/10 ML CUP PO SCH ×4 (09:37→22:22)
[2022-10-08] MEDS: FERROUS SULFATE ORAL ELIXIR 300 MG/5 ML CUP PO SCH ×2 (09:38→23:21)
[2022-10-08] MEDS: CLEVIDIPINE BUTYRATE 25 MG in EMPTY BAG 1 BAG IV SCH (11:08)
[2022-10-08 11:31] LABS: Lymphocytes # (M) 0.16 k/uL (1.0-4.8); Monocytes # (M) 0.08 k/uL (0-1.0); Neutrophils # (M) 3.67 k/uL (1.3-7.7); Neutrophils % (M) 94 %; Nucleated Red Blood Cells 0 /100 WBC (0-0); Total Cells Counted 100
[2022-10-08 11:32] LABS: Crenated RBC Present
[2022-10-08 11:43] LABS: Glucose,Whole Blood 273 mg/dL (70-110)
[2022-10-08] MEDS: VANCOMYCIN 1,750 MG in SODIUM CHLORIDE 0.9% 500 ML 500 ML IVPB SCH (12:49)
--- NOTE | 2022-10-08 16:57 | P.PN ---
Progress Note - Text Progress Note Date: 10/08/22 This is 61-year-old white female with history of depression and bipolar disorder who has history of GI bleed in the past who came in after two-week history of worsening sickness. The patient states upper respiratory congestion. The patient supposedly has had transfusion in about 3-4 months ago due to GI bleed with cauterization. Question element of AV malformation. The patient is new to me. She is nonsmoker. No known sick contacts are stated. She is resting comfortably in her stretcher today. She is a nonsmoker. 10/02/2022 Patient is seen and evaluated and follow-up covering for Dr. Alvin Hartley and patient coming in with worsening generalized weakness and upper respiratory abbe estion. Pulmonary is following and patient was continued on breathing treatments along with IV steroids and being treated for acute flu. Last reviewed and stable. Patient is continued on 2 L nasal cannula with continued congestion and cough. Patient denies chest pain or palpitations. Patient has been up to the bathroom. No reports of nausea or vomiting noted. Wean FiO2 as tolerated. 10/03/2022 She is seen and evaluated in follow-up today with pulmonary following. Patient is maintained on room air maintaining 92-93%. Blood sugars mildly elevated and will continue with current regimen. Patient is continued on IV Solu-Medrol at 60 mg every 6 along with DuoNeb treatments. We'll obtain a chest x-ray today. Patient is currently afebrile denies chest pain or palpitations. Patient c ontinues to have a cough with generalized fatigue and dyspnea with exertion and encourage the patient to increase activity as tolerated. Encourage oral intake and will discuss possible discharge in the next 24-48 hours 10/04/2022 Patient is seen and evaluated and follow-up with pulmonary following. Patient has been maintained on IV steroids and continues to be short of breath with minimal exertion. Patient requiring 2-3 L via nasal cannula reports she does not normally wear oxygen the outpatient setting. Chest x-ray from yesterday showed atelectasis versus pulmonary edema and was given a dose of Lasix. Patient will be given a dose of Lasix today. Patient reports she has been urinating more frequently since the last dose. Repeat BNP today is 1020 magnesium is 1.7. Blood sugars are elevated and maintained on sliding scale and will add low-dose long-acting given the steroids. Recommend Accu-Cheks before meals and at bedtime and close monitoring. Patient is afebrile denies chest pain or palpitations. Patient continues to report shortness of breath and difficulty in breathing. Patient denies nausea or vomiting and tolerating diet. 10/05/2022: I assumed care of the patient today. Sitting up in a recliner. Short of breath. Wheezing. Change to nebulized form off Perforomist and Pulmicort. Increase DuoNeb to every 4. Warm water with salt gargle. Patient is having significant coughing and throat pain. Follow with pulmonary. 10/06/2022: 100 this morning patient became more and more short of breath. Wheezing. Hypoxic. Was put on a BiPAP nonrebreather. As per Mr. has deteriorated patient smoked with ICU intubated. Put on cleviprex drip and Nimbex. On 100% FiO2. Being followed by ball assembler. 10/07/2022: ICU. Intubated. FiO2 100 a PEEP of 10. Under underwent bronchoscopy by Dr. Weller. No major findings. Current drips include propofol and Nimbex. Patient's of levo fed. No secretions. Discussed with the patient's daughter at the bedside. Doppler ultrasound lower extremity ordered. Empirically on IV cefepime 10/08/2022: ICU. Intubated. FiO2 16 a PEEP of 12. Telemetry sinus rhythm. Drips include propofol and Nimbex. On IV cefepime. IV vancomycin. Blood cultures been trying staph aureus. Daughter at the bedside. Active Medications Acetaminophen (Acetaminophen Tab 325 Mg Tab) 650 mg PO Q6HR PRN PRN Reason: Mild Pain or Fever > 100.5 Last Admin: 10/07/22 10:05 Dose: 650 mg Hydrocodone Bitart/Acetaminophen (Hydrocodone/Apap 5-325mg 1 Each Tab) 1 each PO Q4H PRN PRN Reason: Pain Last Admin: 10/08/22 03:59 Dose: 1 each Albuterol/Ipratropium (Ipratropium-Albuterol 3 Ml Neb) 3 ml INHALATION RT-Q4H [facility] Last Admin: 10/08/22 15:49 Dose: 3 ml Artificial Tears (Artificial Tears-Hypromellose Drops 15 Ml Btl) 2 drops BOTH EYES Q4HR [facility] Last Admin: 10/08/22 11:17 Dose: 2 drops Atorvastatin Calcium (Atorvastatin 40 Mg Tab) 40 mg PO HS [facility] Last Admin: 10/07/22 21:13 Dose: 40 mg Budesonide (Budesonide 1 Mg/2 Ml Nebu) 1 mg INHALATION RT-BID [facility] Last Admin: 10/08/22 09:16 Dose: 1 mg Chlorhexidine Gluconate (Chlorhexidine Gluconate 15 Ml Cup) 15 ml MUCOUS MEM BID [facility] Last Admin: 10/08/22 09:05 Dose: 15 ml Citalopram Hydrobromide (Citalopram Hydrobromide 20 Mg Tab) 40 mg PO DAILY [facility] Last Admin: 10/08/22 09:07 Dose: 40 mg Cyclobenzaprine HCl (Cyclobenzaprine 10 Mg Tab) 10 mg PO TID PRN PRN Reason: Muscle Pain Dextrose/Water (Dextrose 50% Syringe 50 Ml) 25 ml IVP PER PROTOCOL PRN; Protocol PRN Reason: Hypoglycemia Dextrose/Water (Dextrose 50% Syringe 50 Ml) 50 ml IVP PER PROTOCOL PRN; Protocol PRN Reason: Hypoglycemia Dicyclomine HCl (Dicyclomine 10 Mg Cap) 10 mg PO TID [facility] Last Admin: 10/08/22 09:05 Dose: 10 mg Enoxaparin Sodium (Enoxaparin 40 Mg/0.4 Ml Syringe) 40 mg SQ DAILY [facility] Last Admin: 10/08/22 09:07 Dose: 40 mg Ferrous Sulfate (Ferrous Sulfate Oral Elixir 300 Mg/5 Ml Cup) 300 mg PO BID [facility] Last Admin: 10/08/22 09:38 Dose: 300 mg Formoterol Fumarate (Formoterol Fumarate 20 Mcg/2 Ml Nebu) 20 mcg INHALATION RT-BID [facility] Last Admin: 10/08/22 09:16 Dose: 20 mcg Guaifenesin (Guaifenesin Syrup 100mg/5ml 200 Mg/10 Ml Cup) 400 mg PO Q4H [facility] Last Admin: 10/08/22 13:13 Dose: 400 mg Hydromorphone HCl (Hydromorphone 0.5 Mg/0.5 Ml Syringe) 0.5 mg IVP Q3HR PRN PRN Reason: Pain Last Admin: 10/08/22 08:13 Dose: 0.5 mg Propofol 1,000 mg/ IV Solution 100 mls @ 10.035 mls/hr IV .Q9H58M [facility]; Protocol Last Admin: 10/08/22 15:29 Dose: 50 mcg/kg/min, 33.45 mls/hr Vancomycin HCl 1,750 mg/ (Sodium Chloride) 500 mls @ 167 mls/hr IVPB Q12H [facility] Last Admin: 10/08/22 12:49 Dose: 167 mls/hr Clevidipine 25 mg/ IV Solution 50 mls @ 2 mls/hr IV .Q24H [facility]; Protocol Last Admin: 10/08/22 11:08 Dose: Not Given Cisatracurium Besylate 200 mg/ (Sodium Chloride) 200 mls @ 6.69 mls/hr IV .Q24H [facility]; Protocol Last Titration: 10/08/22 10:50 Dose: 1 mcg/kg/min, 6.69 mls/hr Cefepime HCl 2 gm/ Sodium (Chloride) 100 mls @ 25 mls/hr IVPB Q8H [facility]; Protocol Last Admin: 10/08/22 11:17 Dose: 25 mls/hr Norepinephrine Bitartrate 8 mg (/ Sodium Chloride) 258 mls @ 6.473 mls/hr IV .Q24H [facility]; Protocol Last Admin: 10/07/22 18:00 Dose: Not Given Insulin Aspart (Insulin Aspart (Novolog) 100 Unit/Ml Vial) 0 unit SQ Q6HR [facility]; Protocol Last Admin: 10/08/22 11:47 Dose: 6 unit Insulin Detemir (Insulin Detemir (Levemir) 100 Unit/Ml Syr) 20 unit SQ DAILY@0700 [facility] Levothyroxine Sodium (Levothyroxine 137 Mcg Tab) 137 mcg PO DAILY@0630 [facility] Last Admin: 10/08/22 09:07 Dose: 137 mcg Loratadine (Loratadine 10 Mg Tab) 10 mg PO HS [facility] Last Admin: 10/07/22 21:13 Dose: 10 mg Methylprednisolone Sodium Succinate (Methylprednisolone Sod Succi 125 Mg/2 Ml Vial) 60 mg IV Q6HR [facility] Last Admin: 10/08/22 11:17 Dose: 60 mg Metoprolol Tartrate (Metoprolol Tartrate 25 Mg Tab) 37.5 mg PO DAILY [facility] Last Admin: 10/08/22 09:06 Dose: 37.5 mg Miscellaneous Information (Potassium Replacement Protocol 1 Each Misc) 1 each MISCELLANE DAILY PRN PRN Reason: Per Protocol Miscellaneous Information (Magnesium Replacement Protocol 1 Each Misc) 1 each MISCELLANE DAILY PRN; Protocol PRN Reason: Per Protocol Miscellaneous Information (Phosphorus Replacement Protoco 1 Each Misc) 1 each MISCELLANE DAILY PRN; Protocol PRN Reason: Per Protocol Miscellaneous Information (Vancomycin Trough Due 1 Each Misc) 1 each MISCELLANE ONCE ONE Stop: 10/08/22 23:01 Naloxone HCl (Naloxone 0.4 Mg/Ml 1 Ml Vial) 0.2 mg IV Q2M PRN PRN Reason: Opioid Reversal Dulaglutide [ Trulicity] 0.75 Mg/0 .5 Ml Each 0.75 mg SQ MATA [facility] Last Admin: 10/03/22 17:38 Dose: 0.75 mg Ondansetron HCl (Ondansetron 4 Mg/2 Ml Vial) 4 mg IVP Q8HR PRN PRN Reason: Nausea And Vomiting Quetiapine Fumarate (Quetiapine 100 Mg Tab) 100 mg PO HS [facility] Last Admin: 10/07/22 21:13 Dose: 100 mg On examination: VITAL SIGNS: [98.1, 73, 26, 106/50, 91% on the ventilator GENERAL APPEARANCE: Laying in bed, intubated, ET tube HEENT: Normal external appearance of nose and ear. Oral cavity normal EYES: Pupils equal. Conjunctiva normal. NECK: JVD not raised. Mass not palpable. RESPIRATORY: Respiratory effort increased. Lungs breath sounds, wheezing, crackles CARDIOVASCULAR: First and second sounds normal. No edema. ABDOMEN: Soft. Liver and spleen not palpable. No tenderness. No mass palpable. PSYCHIATRY: Sedated INVESTIGATIONS, reviewed in the clinical context: 10/08/2022: White count 3.9 hemoglobin 9.3 platelets 53 potassium 4.6 creatinine 0.68 10/07/2022: WBC 5.8 hemoglobin 9.6 platelets 584 0.5 BUN 26 creatinine 0.05 Bronchoscopy: Essentially unremarkable 10/06/2022: PH 7.3 pO2 77 FiO2 100%. Chest x-ray film. Bilateral infiltrate Sodium 136 potassium 3.8 creatinine 0.7 Chest x-ray film personally reviewed by me-scattered fine infiltrates Influenza A positive Assessment and plan: -Acute severe Influenza a pneumonitis -Acute severe COPD exacerbation in an ex-smoker: Slow to respond DuoNeb to every 4, nebulized Pulmicort and Perforomist, IV Solu-Medrol -Possible secondary bacterial pneumonia with sepsis with blood cultures positive for Staphylococcus aureus Empirically on cefepime and IV vancomycin. Status post bronchoscopy-essentially unremarkable -Troponinemia, type II [place]. -Acute hypoxic respiratory failure secondary to COPD and influenza A: Not improving Patient intubated [October 06] -Chronic normocytic anemia -Chronic ITP Follow platelets -Essential Hypertension Lopressor -Lactic acidosis, improved -Nonalcoholic steatohepatitis -Status post aortic valve replacement history -Hyperlipidemia Lipitor -Hypothyroid Synthroid 137 g -Diabetes mellitus type 2 Continue Trulicity. Follow Accu-Cheks with sliding scale -Obesity BMI 36.3 Weight loss measures -Full code Intubated. ICU. IV cefepime. IV Nimbex. IV propofol. IV Solu-Medrol. IV vancomycin. Blood cultures positive for staph aureus. Discussed with daughter the bedside.
[2022-10-08] MEDS: NOREPINEPHRINE 8 MG in SODIUM CHLORIDE 0.9% 250 ML IV SCH (17:40)
[2022-10-08 17:57] LABS: Glucose,Whole Blood 293 mg/dL (70-110)
[2022-10-08] MEDS: CISATRACURIUM 200 MG in SODIUM CHLORIDE 0.9% 180 ML IV SCH (18:00)
[2022-10-08] MEDS: ATORVASTATIN 40 MG TAB PO SCH (22:20)
[2022-10-08] MEDS: LORATADINE 10 MG TAB PO SCH (22:21)
[2022-10-08] MEDS ORDERED: VANCOMYCIN TROUGH DUE 1 EACH MISC MISCELLANE ONE (23:00)
[2022-10-08] MEDS: QUEtiapine 100 MG TAB PO SCH (23:21)
[2022-10-09 00:48] LABS: Glucose,Whole Blood 382 mg/dL (70-110)
[2022-10-09] MEDS: DICYCLOMINE 10 MG CAP PO SCH ×4 (00:51→20:53)
[2022-10-09] MEDS: methylPREDNISolone SOD SUCCI 125 MG/2 ML VIAL IV SCH ×2 (01:00→05:33)
[2022-10-09] MEDS: INSULIN ASPART (NovoLOG) 100 UNIT/ML VIAL SQ SCH ×3 (01:00→11:01)
[2022-10-09] MEDS: ARTIFICIAL TEARS-HYPROMELLOSE DROPS 15 ML BTL BOTH EYES SCH ×6 (01:01→20:10)
[2022-10-09] MEDS: guaiFENesin SYRUP 100MG/5ML 200 MG/10 ML CUP PO SCH ×6 (01:05→20:52)
[2022-10-09] MEDS: IPRATROPIUM-ALBUTEROL 3 ML NEB INHALATION SCH ×6 (03:46→23:34)
[2022-10-09] MEDS: CEFEPIME 2 GM in SODIUM CHLORIDE 0.9% 100 ML IVPB SCH ×3 (05:07→20:51)
[2022-10-09] MEDS: HYDROmorphone 0.5 MG/0.5 ML SYRINGE IVP PRN ×3 (05:08→21:25)
[2022-10-09 05:49] LABS: Glucose,Whole Blood 370 mg/dL (70-110)
[2022-10-09 06:00] LABS: ABG Base Excess -0.8 mmol/L; ABG HCO3 26 mmol/L (21-25); ABG Oxygen Saturation 93.1 % (94-97); ABG PCO2 55 mmHg (35-45); ABG PH 7.28 (7.35-7.45); ABG PO2 71 mmHg (83-108); ABG TCO2 28 mmol/L (19-24); Allen Test Performed? Yes
[2022-10-09] MEDS: VANCOMYCIN 1,750 MG in SODIUM CHLORIDE 0.9% 500 ML 500 ML IVPB SCH (06:13)
[2022-10-09] MEDS: LEVOTHYROXINE 137 MCG TAB PO SCH (06:17)
[2022-10-09 06:24] LABS: Basophils # (A) 0.1 k/uL (0-0.2); Basophils % (A) 0 %; Eosinophils % (A) 0 %; HCT 32.2 % (34.0-46.0); HGB 10.4 gm/dL (11.4-16.0); Hypochromasia Marked; Lymphocytes # (A) 0.2 k/uL (1.0-4.8); Lymphocytes % (A) 1 %; MCH 31.6 pg (25.0-35.0); MCHC 32.2 g/dL (31.0-37.0); MCV 98.1 fL (80.0-100.0); Mean Platelet Volume 10.1; Monocytes # (A) 0.3 k/uL (0-1.0); Monocytes % (A) 2 %; Neutrophils # (A) 12.8 k/uL (1.3-7.7); Neutrophils % (A) 94 %; Platelet Count 87 k/uL (150-450); Poikilocytosis Slight; RBC 3.28 m/uL (3.80-5.40); RDW 14.7 % (11.5-15.5); WBC 13.6 k/uL (3.8-10.6)
--- NOTE | 2022-10-09 06:27 | XR ---
EXAMINATION TYPE: XR chest 1V portable DATE OF EXAM: 10/09/2022 CLINICAL HISTORY: Difficulty breathing progress study. TECHNIQUE: Single AP portable semiupright view of the chest is obtained. COMPARISON: Chest x-ray from one day earlier and older studies. FINDINGS: Stable endotracheal and orogastric tubes. Stable left-sided internal jugular central venou s catheter. Overlying sternal wires and left atrial appendage clip are redemonstrated. Metallic cardi ac valve is again seen. Persistent mild cardiomegaly with bilateral increased multifocal opacities. Osseous structures are in tact. IMPRESSION: Mild cardiomegaly with bilateral multifocal acute infiltrates and/or edema redemonstrated . Correlate for COVID-19 infection and/or ARDS. No significant change from one day earlier.
[2022-10-09 06:45] LABS: Calcium 6.7 mg/dL (8.4-10.2); Potassium 5.1 mmol/L (3.5-5.1)
[2022-10-09] MEDS ORDERED: INSULIN DETEMIR (LEVEMIR) 100 UNIT/ML SYR SQ SCH (07:00)
[2022-10-09] MEDS: FORMOTEROL FUMARATE 20 MCG/2 ML NEBU INHALATION SCH ×2 (07:28→19:28)
[2022-10-09] MEDS: BUDESONIDE 1 MG/2 ML NEBU INHALATION SCH ×2 (07:28→19:28)
[2022-10-09] MEDS ORDERED: FUROSEMIDE 10 MG/ML 4 ML VIAL IV STA (07:37)
--- NOTE | 2022-10-09 07:37 | P.PN ---
Subjective Progress Note Date: 10/09/22 61-year-old female who presented to the emergency department on September 30, complaining of shortness of breath. The patient hasn't been feeling well for about 2 weeks. The patient came into the ER, because over the last couple of days, her symptoms progressed. She was coughing, wheezing, and very short of breath. Apparently tested positive for influenza A. We see her in the emergency room, room 26. She is on room air. She's not receiving any IV fluids. The patient has a history of atrial fibrillation, CHF, diabetes, GERD, hyperlipidemia, hypertension, osteoarthritis, fatty liver, and sleep apnea, among other things. White count 2, hemoglobin 10.4, hematocrit 31.3, and platelet count 71,000 PT 15.4, INR 1.5, and PTT is 31.9. Sodium 136, potassium 4.3, chlorides 109, CO2 20, BUN 11, creatinine 0.65. Lactic acid was 2.7, repeat was 3.5. Calcium 7.8. Troponin 0.167. Urine was negative. Influenza A studies were positive. Chest x-ray, and our opinion, was essentially normal. The patient is seen today 10/02/2022 in follow-up on the selective care unit. She is currently resting comfortably in bed. Awake and alert in no acute distress. She is still quite fatigued. She is still congested and coughing. She is maintaining O2 saturations in the 90s on 2 L/m per nasal cannula. Normal saline at 100 ML's per hour. She is recovering from influenza A. Blood cultures reveal no growth. White count 3.0. Hemoglobin 9.5. Platelets 53,000. Sodium 140. Potassium 4.4. Bicarb 19. BUN 16. Creatinine 0.54. Glucose 153. She is continued on DuoNeb inhalations, IV Solu-Medrol. Progress note dated 10/03/2022. 61-year-old female admitted with a diagnosis of influenza A. The patient was quite bronchospastic when she was initially seen in the emergency room. She is a bit improved today, but still short of breath. She is on room air. Saturations are 93%. She's getting saline at 100 mL an hour. We placed her on corticosteroids, and breathing treatments, and we are hopeful for discharge in the next 24-48 hours. Laboratory data today includes a glucose of 174. Progress note dated 10/04/2022. The diagnosis of bronchospasm and bronchial inflammation, secondary to injury last couple of days. She is on appropriate medications. The patient is getting 2 L of oxygen. We'll repeat an N-terminal proBNP today, and also give her Lasix 40 mg IV push. The patient's on 2 L. She's not receiving any IV fluids. Labs today include a glucose of 303. I'm reevaluating this patient today on 10/05/2022 on a general medical floor. Patient is reporting that she feels slightly worse today, she is up in the chair, on 3 L nasal cannula. She has coarse rhonchi and wheezes throughout. She continues to have a persistent nonproductive cough. Blood cultures are negative at 96 hours. No new CBC today. BMP from today shows sodium 136, potassium 3.8, chloride 102, serum CO2 25, BUN 18.8, creatinine 0.7, glucose 166. Patient's BNP from yesterday was 1020. She did receive a one-time dose of IV Lasix yesterday. Patient's chest x-ray from today continues to show some mild cardiomegaly with mild interstitial edema. Patient continues to receive DuoNeb inhalation, budesonide inhalation, formoterol inhalation, IV Solu-Medrol, Mucinex. She is receiving Lovenox for DVT prophylaxis. She's not receiving any IV maintenance fluids. Patient remains hemodynamically stable. 10/06/2022, the patient acutely became short of breath. The patient was hospitalized on 09/30/2022 for shortness of breath. The patient check positive for influenza A. The patient is known to have fatty liver, obstructive sleep apnea, chronic into fibrillation, CHF and diabetes mellitus and hypertension and hyperlipidemia. The patient was being treated with Tamiflu, DuoNeb treatments [id number] and IV Solu-Medrol. The patient this morning became acutely short of breath. The patient was given initial dose of Lasix. Nevertheless, the patient was Tachypneic using excessive amounts of breathing and for that reason patient was placed on a BiPAP pressure of 14 cm of water with an FiO2 of 100% and patient is currently being transferred to the intensive care unit. Obviously, the patient was made intubation mechanical ventilation. She is quite obtunded at this point in time. Her respiratory rate is in the mid 40s and she is very tachypneic and short of breath. Labs are not available from today. Labs from yesterday was noted. Meanwhile a chest x-ray was done and based on my review of the chest x-ray, patchy bilateral pulmonary infiltrates., Cannot rule out CHF versus viral pneumonia. Based on her records, the patient COPD is moderately severe and the patient is an FEV1 of 64% of predicted. She has had previous hospitalizations with respiratory distress requiring BiPAP therapy for respiratory support. She also has an aortic valve replacement that was done on 04/30/2019. On 10/07/2022, the patient is being seen for a follow-up. As mentioned yesterday, there was obvious decompensation the patient is post status. The patient developed extensive multifocal pneumonia and for that reason the patient had to be intubated and placed on a mechanical ventilator. This morning, she is on propofol which is running at 50 mcg/kg/m and the patient is also paralyzed as the patient was quite a successful the mechanical ventilator. Nimbex is running at 1 mcg/kg/m. She is very much interested a mechanical ventilator. She is adequately paralyzed and sedated. She is on assist-control mode of mechanical ventilation at the rate of 26, tidal volume of 400, FiO2 of 90% with a PEEP of 10. Blood gases showed some mild improvement in oxygenation. PH is at 7.33 with a pCO2 of 49 and pO2 of 119. The peak airway pressure is at 28. Meanwhile, the patient's is currently on broad-spectrum antibiotics. On yesterday's evaluation, I started the patient a combination of cefepime and vancomycin suspecting a superinfection on top of the influenza pneumonia. Gram- positive cocci in chains and clusters and oriented the identified in the blood and we are still awaiting final cultures and sensitivities. Meanwhile, the patient has not required any pressors. She did require pressors earlier post intubation and this morning she is off pressors. IV fluids are in the form of normal saline running at the rate of 50 mL an hour. She is still nothing by mouth. White cell count of 5.8 with a hemoglobin of 9.6 and a platelet count of 58 and there is a significant drop in the platelet count from yesterday. Nevertheless, on and off, the patient's platelet counts have been low. BUN is at 26 with a creatinine of 0.6 and a sodium level is at 137. Legionella urine antigen has been negative. Pro-calcitonin level checked yesterday is still pending. On 10/08/2022, the patient is being seen for a follow-up. She remains intubated on a mechanical ventilator. She remains sedated and paralyzed. This morning, the patient is on propofol running at 50 mcg/kg/m. She is still requiring paralytics. She was given a paralytic holiday yesterday and she became quite asynchronous with mechanical ventilator and she desaturated. Based on that, the dose of Librax was adjusted and currently Nimbex is running at 1 mcg/kg/m. She is adequately paralyzed at this point in time and she is quite successful mechanical ventilator. Meanwhile, she remains on assist-control mode at a rate of 26 with a tidal volume of 400 and FiO2 of 60% with a PEEP of 10. The blood gas shows pH of 7.33 with a pCO2 of 47 and pO2 of 65. The repeat chest x-ray from today shows adequate positioning of 82. She did have some issues with cough leak and this was adjusted overnight. On the x-ray today the right sided pulmonary infiltrate is improved. There is improvement in the right upper lobe and right lower lobe pulmonary infiltration. Left perihilar area and the left lower lobe area remains unchanged. meanwhile, she underwent a bronchoscopy yesterday. The results of the bronchial lavage are still pending. There is some gram-positive cocci growing and there is also staph aureus in the blood. Her current antibiotic coverage included a combination of cefepime and vancomy molly. She was hypothermic earlier with a drop in the temperature down to 95 and she was given external warming. Meanwhile, her the least count is at 3.9 with a hemoglobin of 9.3 which is stable and the platelet count is not resulted yet. BUN is 41 with a creatinine of 0.6 and sodium is at 137 and a serum bicarb is at 25. She is on no pressors for now. IV fluids are in the form of normal saline at rate of 50 mL an hour. Her overall fluid balance is +3.3 L over the past 24 hours. Doppler of the lower extremity was negative and the echocardiogram that was done yesterday showed a preserved LV function with ejection fraction of 55%. There was moderate LV wall thickness. Moderate calcification of the mitral valve and regurgitation, moderate aortic stenosis with a gradient of 27. No evidence of any pericardial effusion. She is also receiving enteral feeding for nutritional support and currently she is on vital HP at the rate of 20 7 2022, the patient remains sedated and paralyzed. On today's evaluation, propofol is running at 50 mcg/kg/m and index is running at 1 mcg/kg/m. She remains sedated and paralyzed. She remains on a mechanical ventilator. She is on assist-control mode at the rate of 28, tidal volume of 400, FiO2 of 60% with a PEEP of 12. Blood gas from today showed a pH of 7.28 with a pCO2 of 55 and pO2 of 71. There is only limited improvement in oxygenation compared to yesterday. The peak airway pressure is currently at 29. Meanwhile, the patient had staph aureus in her blood. The bronchial washings are also growing a gram- positive cocci and the final cultures are still pending for now. We opted to keep the patient on broad-spectrum antibiotics and she remains on a combination of cefepime and vancomycin. The vancomycin trough level was 23.1. Rest of the labs show a white cell count 17.6 with a hemoglobin of 10.4. The BUN is 59 with a creatinine of 1.01. Sodium is at 135. The net fluid balance over the past 24 hours is +1.5 L. IV fluids are currently at 50 mL an hour of normal saline. She remains on IV Solu-Medrol 60 mg IV every 6 hours. She is receiving enteral feeding for nutritional support and currently she is on vital high-protein at the rate of 39 mL an hour. Had echocardiogram was completed and the patient was found to have a normal ejection fraction of 55%. Nevertheless, there was evidence of aortic stenosis that was moderate in severity with a gradient of 27 and there was moderate degree of mitral regurgitation. Minimal edema in her upper extremities. No pressors for now. Objective - Vital Signs Vital signs: Vital Signs Temp 98.6 F 10/09/22 04:00 Pulse 94 10/09/22 07:00 Resp 16 10/09/22 06:00 BP 142/56 10/09/22 07:00 Pulse Ox 90 L 10/09/22 07:00 FiO2 60 10/09/22 07:05 Intake & Output 10/08/22 10/09/22 10/09/22 18:59 06:59 18:59 Intake Total 1315.280 2064.688 26 Output Total 590 815 60 Balance 1223.906 346.688 -34 Weight 124.9 kg Intake: IV 372 312 26 0.9NS Pressure Bag 72 72 6 Sodium Chloride 0.9% 1, 300 240 20 000 ml @ 50 mls/hr IV . Q20H [facility] Rx#:[id number] Intake, IV Titration 996.906 369.688 Amount Cefepime 2 gm In Sodium 100 100 Chloride 0.9% 100 ml @ 25 mls/hr IVPB Q8H [facility] Rx#: [id number] Cisatracurium 200 mg In 110.608 Sodium Chloride 0.9% 180 ml @ 1 MCG/KG/MIN 6.69 mls/hr IV .Q24H [facility] Rx#: [id number] Vancomycin 1,750 mg In 501 Sodium Chloride 0.9% 500 ml 500 ml @ 167 mls/hr IVPB Q12H [facility] Rx#: [id number] propofoL 1,000 mg In 285.298 269.688 Empty Bag 1 bag @ 15 MCG/ KG/MIN 10.035 mls/hr IV . Q9H58M [facility] Rx#:[id number] Tube Feeding 385 390 Other 60 90 Output: Urine 590 815 60 Other: Voiding Method Indwelling Catheter Indwelling Catheter ABP, PAP, CO, CI - Last Documented Arterial Blood Pressure 155/52 - Exam Calm and comfortable and sedated and paralyzed. The patient has a left IJ triple-lumen catheter in place. HEENT examination is grossly unremarkable. Neck supple. Full range of motion. No adenopathy thyromegaly or neck vein distention. Cardiovascular examination reveals regular rhythm rate. S1-S2 normal. No S3 or S4. No discernible murmur noted. Lungs reveal coarse bilateral inspiratory and expiratory wheezes and rhonchi. No crackles. Breath sounds are equal bilaterally. Abdomen soft bowel sounds are heard. No masses or tenderness. Extremities are intact. No cyanosis clubbing or edema. Skin is without rash or lesion. Neurologic examination is brief but nonfocal. The patient is currently sedated and paralyzed. - Labs CBC & Chem 7: 10/09/22 05:30 10/09/22 05:30 Labs: Abnormal Lab Results - Last 24 Hours (Table) 10/07/22 10/08/22 10/08/22 Range/Units 11:52 04:47 11:42 WBC (3.8-10.6) k/uL RBC (3.80-5.40) m/uL Hgb (11.4-16.0) gm/dL Hct (34.0-46.0) % Plt Count 53 L (150-450) k/uL Neutrophils # (1.3-7.7) k/uL Lymphocytes # (1.0-4.8) k/uL Lymphocytes # (Manual) 0.16 L (1.0-4.8) k/uL ABG pH (7.35-7.45) ABG pCO2 (35-45) mmHg ABG pO2 (83-108) mmHg ABG HCO3 (21-25) mmol/L ABG Total CO2 (19-24) mmol/L ABG O2 Saturation (94-97) % Chloride (98-107) mmol/L BUN (7-17) mg/dL Glucose (74-99) mg/dL POC Glucose (mg/dL) 273 H (70-110) mg/dL Calcium (8.4-10.2) mg/dL Viral Test See Below A 10/08/22 10/09/22 10/09/22 Range/Units 17:55 00:47 05:30 WBC (3.8-10.6) k/uL RBC (3.80-5.40) m/uL Hgb (11.4-16.0) gm/dL Hct (34.0-46.0) % Plt Count (150-450) k/uL Neutrophils # (1.3-7.7) k/uL Lymphocytes # (1.0-4.8) k/uL Lymphocytes # (Manual) (1.0-4.8) k/uL ABG pH (7.35-7.45) ABG pCO2 (35-45) mmHg ABG pO2 (83-108) mmHg ABG HCO3 (21-25) mmol/L ABG Total CO2 (19-24) mmol/L ABG O2 Saturation (94-97) % Chloride 111 H (98-107) mmol/L BUN 59 H (7-17) mg/dL Glucose 356 H (74-99) mg/dL POC Glucose (mg/dL) 293 H 382 H (70-110) mg/dL Calcium 6.7 L (8.4-10.2) mg/dL Viral Test 10/09/22 10/09/22 10/09/22 Range/Units 05:30 05:45 05:52 WBC 13.6 H (3.8-10.6) k/uL RBC 3.28 L (3.80-5.40) m/uL Hgb 10.4 L (11.4-16.0) gm/dL Hct 32.2 L (34.0-46.0) % Plt Count 87 L D (150-450) k/uL Neutrophils # 12.8 H (1.3-7.7) k/uL Lymphocytes # 0.2 L (1.0-4.8) k/uL Lymphocytes # (Manual) (1.0-4.8) k/uL ABG pH 7.28 L (7.35-7.45) ABG pCO2 55 H (35-45) mmHg ABG pO2 71 L (83-108) mmHg ABG HCO3 26 H (21-25) mmol/L ABG Total CO2 28 H (19-24) mmol/L ABG O2 Saturation 93.1 L (94-97) % Chloride (98-107) mmol/L BUN (7-17) mg/dL Glucose (74-99) mg/dL POC Glucose (mg/dL) 370 H (70-110) mg/dL Calcium (8.4-10.2) mg/dL Viral Test Microbiology - Last 24 Hours (Table) 10/07/22 11:52 Acid Fast Bacilli Smear - Final Bronchoalviolar Lavage - Right Acid Fast Bacilli Culture - Preliminary 10/06/22 18:25 Urine Culture - Final Urine,Voided Assessment and Plan Plan: Multifocal pneumonia post influenza A infection. The patient was infected with influenza and subsequently decompensated and developed diffuse bilateral pulmonary infiltrates, patchy areas of consolidation, suspicious for a bacterial infection. The patient also has gram-positive cocci in clusters in the blood. Patient is currently on Tamiflu, cefepime and vancomycin. Intubated on a mechanical ventilator and she is already sedated and paralyzed. There has been some improvement in the oxygenation since yesterday. Chest x-ray is slowly improving and there is interval improvement in the perihilar consolidation. Staph Aureus sepsis, awaiting final sensitivities and the patient is currently on a combination of cefepime and vancomycin History of atrial fibrillation. Current rhythm is sinus History of valvular heart disease with aortic valve replacement. The repeat echocardiogram shows moderate degree of aortic valve stenosis History of heart failure. Left ventricle ejection fraction is preserved at 55% History of diabetes mellitus. The patient is currently having elevated blood sugars. She is on Levemir Gastroesophageal reflux disease. Hyperlipidemia. Hypertension. History of sleep apnea syndrome. History of hypothyroidism. Obesity. Multiple other medical problems and comorbidities. Thrombocytopenia, with a previous history of ITP, currently on IV Solu-Medrol. Will monitor the platelet count and will keep the Lovenox for now for DVT prophylaxis and a platelet count is stable at 87 Plan Continue ventilator support and increase the PEEP up to 12. Chest x-ray was reviewed and there is some limited improvement in the right side. There may be a component of staphylococcal pneumonia and the patient will be kept on cefepime and vancomycin pending further cultures and sensitivities IV fluids to KVO Give the patient another dose of Lasix 40 mg IV push Keep sedation with propofol Give the patient a paralytic holiday and discontinued the Nimbex of the patient remains synchronous with a mechanical ventilator Continue the IV Solu-Medrol, dropped a dose of IV Solu-Medrol to 40 mg every 12 hours Continue Tamiflu cefepime and vancomycin Echocardiogram was adequate and the Doppler of the lower oximetry is were negative Continue enteral feeding for nutritional support No pressors for now Increase Levemir to 26 units and continue the sliding scale coverage for hepatic blood sugar control We'll continue to follow. Condition remains critical and the main communicating with the family on a regular basis. Family has been updated and will continue to follow make further recommendations based on her progress. There is a critical care evaluation that was done in more than 30 minutes. Time with Patient: Greater than 30
[2022-10-09] MEDS: OSELTAMIVIR 60 MG/10 ML ORAL SYRINGE PO SCH (09:33)
[2022-10-09] MEDS: METOPROLOL TARTRATE 25 MG TAB PO SCH (09:34)
[2022-10-09] MEDS: ENOXAPARIN 40 MG/0.4 ML SYRINGE SQ SCH (09:35)
[2022-10-09] MEDS: FERROUS SULFATE ORAL ELIXIR 300 MG/5 ML CUP PO SCH ×2 (09:35→20:51)
[2022-10-09] MEDS: CHLORHEXIDINE GLUCONATE 15 ML CUP MUCOUS MEM SCH ×2 (09:35→20:51)
[2022-10-09] MEDS: CITALOPRAM HYDROBROMIDE 20 MG TAB PO SCH (09:35)
[2022-10-09] MEDS ORDERED: INSULIN DETEMIR (LEVEMIR) 100 UNIT/ML SYR SQ ONE (09:43)
[2022-10-09 10:51] LABS: Glucose,Whole Blood 376 mg/dL (70-110)
[2022-10-09 12:53] LABS: Glucose,Whole Blood 350 mg/dL (70-110)
--- NOTE | 2022-10-09 13:23 | P.PN ---
Progress Note - Text Progress Note Date: 10/09/22 This is 61-year-old white female with history of depression and bipolar disorder who has history of GI bleed in the past who came in after two-week history of worsening sickness. The patient states upper respiratory congestion. The patient supposedly has had transfusion in about 3-4 months ago due to GI bleed with cauterization. Question element of AV malformation. The patient is new to me. She is nonsmoker. No known sick contacts are stated. She is resting comfortably in her stretcher today. She is a nonsmoker. 10/02/2022 Patient is seen and evaluated and follow-up covering for Dr. Alvin Hartley and patient coming in with worsening generalized weakness and upper respiratory abbe estion. Pulmonary is following and patient was continued on breathing treatments along with IV steroids and being treated for acute flu. Last reviewed and stable. Patient is continued on 2 L nasal cannula with continued congestion and cough. Patient denies chest pain or palpitations. Patient has been up to the bathroom. No reports of nausea or vomiting noted. Wean FiO2 as tolerated. 10/03/2022 She is seen and evaluated in follow-up today with pulmonary following. Patient is maintained on room air maintaining 92-93%. Blood sugars mildly elevated and will continue with current regimen. Patient is continued on IV Solu-Medrol at 60 mg every 6 along with DuoNeb treatments. We'll obtain a chest x-ray today. Patient is currently afebrile denies chest pain or palpitations. Patient c ontinues to have a cough with generalized fatigue and dyspnea with exertion and encourage the patient to increase activity as tolerated. Encourage oral intake and will discuss possible discharge in the next 24-48 hours 10/04/2022 Patient is seen and evaluated and follow-up with pulmonary following. Patient has been maintained on IV steroids and continues to be short of breath with minimal exertion. Patient requiring 2-3 L via nasal cannula reports she does not normally wear oxygen the outpatient setting. Chest x-ray from yesterday showed atelectasis versus pulmonary edema and was given a dose of Lasix. Patient will be given a dose of Lasix today. Patient reports she has been urinating more frequently since the last dose. Repeat BNP today is 1020 magnesium is 1.7. Blood sugars are elevated and maintained on sliding scale and will add low-dose long-acting given the steroids. Recommend Accu-Cheks before meals and at bedtime and close monitoring. Patient is afebrile denies chest pain or palpitations. Patient continues to report shortness of breath and difficulty in breathing. Patient denies nausea or vomiting and tolerating diet. 10/05/2022: I assumed care of the patient today. Sitting up in a recliner. Short of breath. Wheezing. Change to nebulized form off Perforomist and Pulmicort. Increase DuoNeb to every 4. Warm water with salt gargle. Patient is having significant coughing and throat pain. Follow with pulmonary. 10/06/2022: 100 this morning patient became more and more short of breath. Wheezing. Hypoxic. Was put on a BiPAP nonrebreather. As per Mr. has deteriorated patient smoked with ICU intubated. Put on cleviprex drip and Nimbex. On 100% FiO2. Being followed by low voltage technician. 10/07/2022: ICU. Intubated. FiO2 100 a PEEP of 10. Under underwent bronchoscopy by Dr. Weller. No major findings. Current drips include propofol and Nimbex. Patient's of levo fed. No secretions. Discussed with the patient's daughter at the bedside. Doppler ultrasound lower extremity ordered. Empirically on IV cefepime 10/08/2022: ICU. Intubated. FiO2 16 a PEEP of 12. Telemetry sinus rhythm. Drips include propofol and Nimbex. On IV cefepime. IV vancomycin. Blood cultures been trying staph aureus. Daughter at the bedside. 7. History: ICU. Intubated. FiO2 16.. Drips include propofol. Suspect. Bronchial washings confirmed MSSA. Blood cultures not finalized. On IV cefepime and vancomycin. Levemir adjusted Active Medications Acetaminophen (Acetaminophen Tab 325 Mg Tab) 650 mg PO Q6HR PRN PRN Reason: Mild Pain or Fever > 100.5 Last Admin: 10/07/22 10:05 Dose: 650 mg Hydrocodone Bitart/Acetaminophen (Hydrocodone/Apap 5-325mg 1 Each Tab) 1 each PO Q4H PRN PRN Reason: Pain Last Admin: 10/08/22 03:59 Dose: 1 each Albuterol/Ipratropium (Ipratropium-Albuterol 3 Ml Neb) 3 ml INHALATION RT-Q4H LATRELL Last Admin: 10/09/22 11:12 Dose: 3 ml Artificial Tears (Artificial Tears-Hypromellose Drops 15 Ml Btl) 2 drops BOTH EYES Q4HR [facility] Last Admin: 10/09/22 12:52 Dose: 2 drops Atorvastatin Calcium (Atorvastatin 40 Mg Tab) 40 mg PO HS [facility] Last Admin: 10/08/22 22:20 Dose: 40 mg Budesonide (Budesonide 1 Mg/2 Ml Nebu) 1 mg INHALATION RT-BID [facility] Last Admin: 10/09/22 07:28 Dose: 1 mg Chlorhexidine Gluconate (Chlorhexidine Gluconate 15 Ml Cup) 15 ml MUCOUS MEM BID [facility] Last Admin: 10/09/22 09:35 Dose: 15 ml Citalopram Hydrobromide (Citalopram Hydrobromide 20 Mg Tab) 40 mg PO DAILY [facility] Last Admin: 10/09/22 09:35 Dose: 40 mg Cyclobenzaprine HCl (Cyclobenzaprine 10 Mg Tab) 10 mg PO TID PRN PRN Reason: Muscle Pain Dextrose/Water (Dextrose 50% Syringe 50 Ml) 25 ml IVP PER PROTOCOL PRN; Protocol PRN Reason: Hypoglycemia Dextrose/Water (Dextrose 50% Syringe 50 Ml) 50 ml IVP PER PROTOCOL PRN; Protocol PRN Reason: Hypoglycemia Dicyclomine HCl (Dicyclomine 10 Mg Cap) 10 mg PO TID [facility] Last Admin: 10/09/22 12:52 Dose: 10 mg Enoxaparin Sodium (Enoxaparin 40 Mg/0.4 Ml Syringe) 40 mg SQ DAILY [facility] Last Admin: 10/09/22 09:35 Dose: 40 mg Ferrous Sulfate (Ferrous Sulfate Oral Elixir 300 Mg/5 Ml Cup) 300 mg PO BID [facility] Last Admin: 10/09/22 09:35 Dose: 300 mg Formoterol Fumarate (Formoterol Fumarate 20 Mcg/2 Ml Nebu) 20 mcg INHALATION RT-BID [facility] Last Admin: 10/09/22 07:28 Dose: 20 mcg Guaifenesin (Guaifenesin Syrup 100mg/5ml 200 Mg/10 Ml Cup) 400 mg PO Q4H [facility] Last Admin: 10/09/22 13:17 Dose: 400 mg Hydromorphone HCl (Hydromorphone 0.5 Mg/0.5 Ml Syringe) 0.5 mg IVP Q3HR PRN PRN Reason: Pain Last Admin: 10/09/22 05:08 Dose: 0.5 mg Propofol 1,000 mg/ IV Solution 100 mls @ 10.035 mls/hr IV .Q9H58M [facility]; Protocol Last Admin: 10/09/22 11:30 Dose: 50 mcg/kg/min, 33.45 mls/hr Clevidipine 25 mg/ IV Solution 50 mls @ 2 mls/hr IV .Q24H [facility]; Protocol Last Admin: 10/08/22 11:08 Dose: Not Given Cisatracurium Besylate 200 mg/ (Sodium Chloride) 200 mls @ 6.69 mls/hr IV .Q24H [facility]; Protocol Last Titration: 10/09/22 10:51 Dose: 1 mcg/kg/min, 6.69 mls/hr Cefepime HCl 2 gm/ Sodium (Chloride) 100 mls @ 25 mls/hr IVPB Q8H [facility]; Protocol Last Admin: 10/09/22 12:19 Dose: 25 mls/hr Norepinephrine Bitartrate 8 mg (/ Sodium Chloride) 258 mls @ 6.473 mls/hr IV .Q24H [facility]; Protocol Last Admin: 10/08/22 17:40 Dose: Not Given Vancomycin HCl 1,750 mg/ (Sodium Chloride) 500 mls @ 167 mls/hr IVPB Q16H [facility] Last Admin: 10/09/22 06:13 Dose: 167 mls/hr Insulin Aspart (Insulin Aspart (Novolog) 100 Unit/Ml Vial) 0 unit SQ Q6HR [facility]; Protocol Last Admin: 10/09/22 11:01 Dose: 10 unit Insulin Detemir (Insulin Detemir (Levemir) 100 Unit/Ml Syr) 26 unit SQ DAILY@0700 [facility] Levothyroxine Sodium (Levothyroxine 137 Mcg Tab) 137 mcg PO DAILY@0630 [facility] Last Admin: 10/09/22 06:17 Dose: 137 mcg Loratadine (Loratadine 10 Mg Tab) 10 mg PO HS [facility] Last Admin: 10/08/22 22:21 Dose: 10 mg Methylprednisolone Sodium Succinate (Methylprednisolone Sod Succi 40 Mg/Ml 1 Ml Vial) 40 mg IV Q12HR [facility] Metoprolol Tartrate (Metoprolol Tartrate 25 Mg Tab) 37.5 mg PO DAILY [facility] Last Admin: 10/09/22 09:34 Dose: 37.5 mg Miscellaneous Information (Potassium Replacement Protocol 1 Each Misc) 1 each MISCELLANE DAILY PRN PRN Reason: Per Protocol Miscellaneous Information (Magnesium Replacement Protocol 1 Each Misc) 1 each MISCELLANE DAILY PRN; Protocol PRN Reason: Per Protocol Miscellaneous Information (Phosphorus Replacement Protoco 1 Each Misc) 1 each MISCELLANE DAILY PRN; Protocol PRN Reason: Per Protocol Naloxone HCl (Naloxone 0.4 Mg/Ml 1 Ml Vial) 0.2 mg IV Q2M PRN PRN Reason: Opioid Reversal Dulaglutide [ Trulicity] 0.75 Mg/0 .5 Ml Each 0.75 mg SQ [facility] Last Admin: 10/03/22 17:38 Dose: 0.75 mg Ondansetron HCl (Ondansetron 4 Mg/2 Ml Vial) 4 mg IVP Q8HR PRN PRN Reason: Nausea And Vomiting Oseltamivir Phosphate (Oseltamivir 60 Mg/10 Ml Oral Syringe) 30 mg PO Q12HR [facility]; Protocol Stop: 10/13/22 21:01 Last Admin: 10/09/22 09:33 Dose: 30 mg Quetiapine Fumarate (Quetiapine 100 Mg Tab) 100 mg PO HS [facility] Last Admin: 10/08/22 23:21 Dose: 100 mg On examination: VITAL SIGNS: 98.8, 2078, 26, 130/56, 90% on ventilator GENERAL APPEARANCE: Laying in bed, intubated, ET tube HEENT: Normal external appearance of nose and ear. Oral cavity dry EYES: Pupils equal. Conjunctiva normal. NECK: JVD not raised. Mass not palpable. RESPIRATORY: Respiratory effort increased. 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 No edema. ABDOMEN: Soft. Liver and spleen not palpable. No tenderness. No mass palpable. PSYCHIATRY: Sedated INVESTIGATIONS, reviewed in the clinical context: 10/09/2022: White count 13.6 and globin 10.4. DVT 7 potassium 5.1 creatinine 1.01 ABG: PH 7.28 pCO2 55 pO2 71 10/08/2022: White count 3.9 hemoglobin 9.3 platelets 53 potassium 4.6 creatinine 0.68 10/07/2022: WBC 5.8 hemoglobin 9.6 platelets 584 0.5 BUN 26 creatinine 0.05 Bronchoscopy: Essentially unremarkable 10/06/2022: PH 7.3 pO2 77 FiO2 100%. Chest x-ray film. Bilateral infiltrate Sodium 136 potassium 3.8 creatinine 0.7 Chest x-ray film personally reviewed by me-scattered fine infiltrates Influenza A positive Assessment and plan: -Acute severe Influenza a pneumonitis -Acute severe COPD exacerbation in an ex-smoker: Slow to respond DuoNeb to every 4, nebulized Pulmicort and Perforomist, IV Solu-Medrol -Possible secondary bacterial pneumonia with sepsis with lavage cultures positive for MSSA Empirically on cefepime and IV vancomycin. Status post bronchoscopy-essentially unremarkable -Sepsis with positive blood cultures Staphylococcus aureus On IV vancomycin -Troponinemia, type II UT. -Acute hypoxic respiratory failure secondary to COPD and influenza A: Not improving Patient intubated [October 06]. Ventilator support -Chronic normocytic anemia -Chronic ITP Follow platelets -Essential Hypertension Lopressor -Lactic acidosis, improved -Nonalcoholic steatohepatitis -Status post aortic valve replacement history -Hyperlipidemia Lipitor -Hypothyroid Synthroid 137 g -Diabetes mellitus type 2 Continue Trulicity. Follow Accu-Cheks with sliding scale -Obesity BMI 36.3 Weight loss measures -Full code Intubated. ICU. IV cefepime. IV Nimbex. IV propofol. IV Solu-Medrol. IV vancomycin. Blood cultures positive for staph aureus. Follow-up in low voltage technician
[2022-10-09] MEDS ORDERED: DEXTROSE 50% SYRINGE 50 ML IVP PRN (13:54)
[2022-10-09] MEDS: INSULIN REGULAR 100 UNIT in SODIUM CHLORIDE 0.9% 100 ML IV SCH (15:09)
[2022-10-09 15:11] LABS: Glucose,Whole Blood 369 mg/dL (70-110)
[2022-10-09] MEDS: CLEVIDIPINE BUTYRATE 25 MG in EMPTY BAG 1 BAG IV SCH (15:15)
[2022-10-09 16:07] LABS: Glucose,Whole Blood 296 mg/dL (70-110)
[2022-10-09 17:17] LABS: Glucose,Whole Blood 302 mg/dL (70-110)
[2022-10-09] MEDS: NOREPINEPHRINE 8 MG in SODIUM CHLORIDE 0.9% 250 ML IV SCH (17:23)
[2022-10-09 18:02] LABS: Glucose,Whole Blood 292 mg/dL (70-110)
[2022-10-09 19:21] LABS: Glucose,Whole Blood 253 mg/dL (70-110)
[2022-10-09 20:13] LABS: Glucose,Whole Blood 233 mg/dL (70-110)
[2022-10-09] MEDS: ATORVASTATIN 40 MG TAB PO SCH (20:51)
[2022-10-09] MEDS: LORATADINE 10 MG TAB PO SCH (20:52)
[2022-10-09] MEDS: QUEtiapine 100 MG TAB PO SCH (20:52)
[2022-10-09] MEDS: methylPREDNISolone SOD SUCCI 40 MG/ML 1 ML VIAL IV SCH (20:52)
[2022-10-09 20:53] LABS: Glucose,Whole Blood 215 mg/dL (70-110)
[2022-10-09 22:02] LABS: Glucose,Whole Blood 187 mg/dL (70-110)
[2022-10-09] MEDS: CISATRACURIUM 200 MG in SODIUM CHLORIDE 0.9% 180 ML IV SCH (22:05)
[2022-10-09 23:04] LABS: Glucose,Whole Blood 151 mg/dL (70-110)
[2022-10-10] MEDS: VANCOMYCIN 1,750 MG in SODIUM CHLORIDE 0.9% 500 ML 500 ML IVPB SCH (00:03)
[2022-10-10] MEDS: ARTIFICIAL TEARS-HYPROMELLOSE DROPS 15 ML BTL BOTH EYES SCH ×6 (00:03→20:39)
[2022-10-10] MEDS: guaiFENesin SYRUP 100MG/5ML 200 MG/10 ML CUP PO SCH ×6 (00:04→20:39)
[2022-10-10 00:27] LABS: Glucose,Whole Blood 162 mg/dL (70-110)
[2022-10-10] MEDS: INSULIN REGULAR 100 UNIT in SODIUM CHLORIDE 0.9% 100 ML IV SCH (00:27)
[2022-10-10 01:08] LABS: Glucose,Whole Blood 149 mg/dL (70-110)
[2022-10-10] MEDS: OSELTAMIVIR 60 MG/10 ML ORAL SYRINGE PO SCH ×3 (01:39→20:38)
[2022-10-10 02:02] LABS: Glucose,Whole Blood 126 mg/dL (70-110)
[2022-10-10 02:58] LABS: Glucose,Whole Blood 135 mg/dL (70-110)
[2022-10-10] MEDS: IPRATROPIUM-ALBUTEROL 3 ML NEB INHALATION SCH ×6 (03:43→23:24)
[2022-10-10 04:14] LABS: Glucose,Whole Blood 194 mg/dL (70-110)
[2022-10-10 05:13] LABS: Glucose,Whole Blood 186 mg/dL (70-110)
[2022-10-10 05:50] LABS: Basophils % (A) 0 %; Eosinophils % (A) 0 %; HCT 30.2 % (34.0-46.0); HGB 9.6 gm/dL (11.4-16.0); Hypochromasia Marked; Lymphocytes # (A) 0.2 k/uL (1.0-4.8); Lymphocytes % (A) 2 %; MCH 30.9 pg (25.0-35.0); MCHC 31.6 g/dL (31.0-37.0); MCV 97.7 fL (80.0-100.0); Mean Platelet Volume 10.8; Monocytes # (A) 0.2 k/uL (0-1.0); Monocytes % (A) 3 %; Neutrophils # (A) 6.6 k/uL (1.3-7.7); Neutrophils % (A) 94 %; Poikilocytosis Slight; RBC 3.09 m/uL (3.80-5.40); RDW 14.3 % (11.5-15.5); WBC 7.1 k/uL (3.8-10.6)
[2022-10-10 05:54] LABS: Platelet Count 52 k/uL (150-450)
[2022-10-10 06:11] LABS: ABG Base Excess -0.8 mmol/L; ABG HCO3 26 mmol/L (21-25); ABG Oxygen Saturation 92.9 % (94-97); ABG PCO2 53 mmHg (35-45); ABG PH 7.29 (7.35-7.45); ABG PO2 68 mmHg (83-108); ABG TCO2 27 mmol/L (19-24); Allen Test Performed? Yes
[2022-10-10 06:16] LABS: Albumin 2.3 g/dL (3.5-5.0); Calcium 6.7 mg/dL (8.4-10.2); Potassium 4.9 mmol/L (3.5-5.1); Total Bilirubin 2.2 mg/dL (0.2-1.3); Total Protein 6.3 g/dL (6.3-8.2)
[2022-10-10 06:27] LABS: Glucose,Whole Blood 176 mg/dL (70-110)
[2022-10-10] MEDS: LEVOTHYROXINE 137 MCG TAB PO SCH (06:32)
[2022-10-10] MEDS ORDERED: INSULIN DETEMIR (LEVEMIR) 100 UNIT/ML SYR SQ SCH ×2 (07:00→21:00)
[2022-10-10 07:13] LABS: Glucose,Whole Blood 176 mg/dL (70-110)
--- NOTE | 2022-10-10 07:28 | XR ---
EXAMINATION TYPE: XR chest 1V portable DATE OF EXAM: 10/10/2022 5:22 AM COMPARISON: Chest radiograph from one day prior. TECHNIQUE: XR chest 1V portable Portable AP radiograph of the chest. CLINICAL INDICATION:Female, 61 years old with history of Tube placement; FINDINGS: Lungs/Pleura: Similar multifocal airspace opacities. No evidence of pneumothorax. Blunting of the cos tophrenic angles. Pulmonary vascularity: Pulmonary vascular congestion. Heart/mediastinum: Cardiomediastinal silhouette is enlarged and stable. Left atrial appendage occlusi on device is present. Musculoskeletal: No acute osseous pathology. Midline sternotomy wires are noted. Lines/Tubes: Endotracheal tube with distal tip 4.6 cm above the tia. Nasogastric tube with its distal tip and side-port projecting under the diaphragm. Left internal jugular central venous catheter with distal tip at the cavoatrial junction. IMPRESSION: 1. Similar multifocal airspace opacities favored to represent CHF. 2. Stable support line and tubes.
--- NOTE | 2022-10-10 07:47 | P.PN ---
Subjective Progress Note Date: 10/10/22 61-year-old female who presented to the emergency department on September 30, complaining of shortness of breath. The patient hasn't been feeling well for about 2 weeks. The patient came into the ER, because over the last couple of days, her symptoms progressed. She was coughing, wheezing, and very short of breath. Apparently tested positive for influenza A. We see her in the emergency room, room 26. She is on room air. She's not receiving any IV fluids. The patient has a history of atrial fibrillation, CHF, diabetes, GERD, hyperlipidemia, hypertension, osteoarthritis, fatty liver, and sleep apnea, among other things. White count 2, hemoglobin 10.4, hematocrit 31.3, and platelet count 71,000 PT 15.4, INR 1.5, and PTT is 31.9. Sodium 136, potassium 4.3, chlorides 109, CO2 20, BUN 11, creatinine 0.65. Lactic acid was 2.7, repeat was 3.5. Calcium 7.8. Troponin 0.167. Urine was negative. Influenza A studies were positive. Chest x-ray, and our opinion, was essentially normal. The patient is seen today 10/02/2022 in follow-up on the selective care unit. She is currently resting comfortably in bed. Awake and alert in no acute distress. She is still quite fatigued. She is still congested and coughing. She is maintaining O2 saturations in the 90s on 2 L/m per nasal cannula. Normal saline at 100 ML's per hour. She is recovering from influenza A. Blood cultures reveal no growth. White count 3.0. Hemoglobin 9.5. Platelets 53,000. Sodium 140. Potassium 4.4. Bicarb 19. BUN 16. Creatinine 0.54. Glucose 153. She is continued on DuoNeb inhalations, IV Solu-Medrol. Progress note dated 10/03/2022. 61-year-old female admitted with a diagnosis of influenza A. The patient was quite bronchospastic when she was initially seen in the emergency room. She is a bit improved today, but still short of breath. She is on room air. Saturations are 93%. She's getting saline at 100 mL an hour. We placed her on corticosteroids, and breathing treatments, and we are hopeful for discharge in the next 24-48 hours. Laboratory data today includes a glucose of 174. Progress note dated 10/04/2022. The diagnosis of bronchospasm and bronchial inflammation, secondary to injury last couple of days. She is on appropriate medications. The patient is getting 2 L of oxygen. We'll repeat an N-terminal proBNP today, and also give her Lasix 40 mg IV push. The patient's on 2 L. She's not receiving any IV fluids. Labs today include a glucose of 303. I'm reevaluating this patient today on 10/05/2022 on a general medical floor. Patient is reporting that she feels slightly worse today, she is up in the chair, on 3 L nasal cannula. She has coarse rhonchi and wheezes throughout. She continues to have a persistent nonproductive cough. Blood cultures are negative at 96 hours. No new CBC today. BMP from today shows sodium 136, potassium 3.8, chloride 102, serum CO2 25, BUN 18.8, creatinine 0.7, glucose 166. Patient's BNP from yesterday was 1020. She did receive a one-time dose of IV Lasix yesterday. Patient's chest x-ray from today continues to show some mild cardiomegaly with mild interstitial edema. Patient continues to receive DuoNeb inhalation, budesonide inhalation, formoterol inhalation, IV Solu-Medrol, Mucinex. She is receiving Lovenox for DVT prophylaxis. She's not receiving any IV maintenance fluids. Patient remains hemodynamically stable. 10/06/2022, the patient acutely became short of breath. The patient was hospitalized on 09/30/2022 for shortness of breath. The patient check positive for influenza A. The patient is known to have fatty liver, obstructive sleep apnea, chronic into fibrillation, CHF and diabetes mellitus and hypertension and hyperlipidemia. The patient was being treated with Tamiflu, DuoNeb treatments [id number] and IV Solu-Medrol. The patient this morning became acutely short of breath. The patient was given initial dose of Lasix. Nevertheless, the patient was Tachypneic using excessive amounts of breathing and for that reason patient was placed on a BiPAP pressure of 14 cm of water with an FiO2 of 100% and patient is currently being transferred to the intensive care unit. Obviously, the patient was made intubation mechanical ventilation. She is quite obtunded at this point in time. Her respiratory rate is in the mid 40s and she is very tachypneic and short of breath. Labs are not available from today. Labs from yesterday was noted. Meanwhile a chest x-ray was done and based on my review of the chest x-ray, patchy bilateral pulmonary infiltrates., Cannot rule out CHF versus viral pneumonia. Based on her records, the patient COPD is moderately severe and the patient is an FEV1 of 64% of predicted. She has had previous hospitalizations with respiratory distress requiring BiPAP therapy for respiratory support. She also has an aortic valve replacement that was done on 04/30/2019. On 10/07/2022, the patient is being seen for a follow-up. As mentioned yesterday, there was obvious decompensation the patient is post status. The patient developed extensive multifocal pneumonia and for that reason the patient had to be intubated and placed on a mechanical ventilator. This morning, she is on propofol which is running at 50 mcg/kg/m and the patient is also paralyzed as the patient was quite a successful the mechanical ventilator. Nimbex is running at 1 mcg/kg/m. She is very much interested a mechanical ventilator. She is adequately paralyzed and sedated. She is on assist-control mode of mechanical ventilation at the rate of 26, tidal volume of 400, FiO2 of 90% with a PEEP of 10. Blood gases showed some mild improvement in oxygenation. PH is at 7.33 with a pCO2 of 49 and pO2 of 119. The peak airway pressure is at 28. Meanwhile, the patient's is currently on broad-spectrum antibiotics. On yesterday's evaluation, I started the patient a combination of cefepime and vancomycin suspecting a superinfection on top of the influenza pneumonia. Gram- positive cocci in chains and clusters and oriented the identified in the blood and we are still awaiting final cultures and sensitivities. Meanwhile, the patient has not required any pressors. She did require pressors earlier post intubation and this morning she is off pressors. IV fluids are in the form of normal saline running at the rate of 50 mL an hour. She is still nothing by mouth. White cell count of 5.8 with a hemoglobin of 9.6 and a platelet count of 58 and there is a significant drop in the platelet count from yesterday. Nevertheless, on and off, the patient's platelet counts have been low. BUN is at 26 with a creatinine of 0.6 and a sodium level is at 137. Legionella urine antigen has been negative. Pro-calcitonin level checked yesterday is still pending. On 10/08/2022, the patient is being seen for a follow-up. She remains intubated on a mechanical ventilator. She remains sedated and paralyzed. This morning, the patient is on propofol running at 50 mcg/kg/m. She is still requiring paralytics. She was given a paralytic holiday yesterday and she became quite asynchronous with mechanical ventilator and she desaturated. Based on that, the dose of Librax was adjusted and currently Nimbex is running at 1 mcg/kg/m. She is adequately paralyzed at this point in time and she is quite successful mechanical ventilator. Meanwhile, she remains on assist-control mode at a rate of 26 with a tidal volume of 400 and FiO2 of 60% with a PEEP of 10. The blood gas shows pH of 7.33 with a pCO2 of 47 and pO2 of 65. The repeat chest x-ray from today shows adequate positioning of 82. She did have some issues with cough leak and this was adjusted overnight. On the x-ray today the right sided pulmonary infiltrate is improved. There is improvement in the right upper lobe and right lower lobe pulmonary infiltration. Left perihilar area and the left lower lobe area remains unchanged. meanwhile, she underwent a bronchoscopy yesterday. The results of the bronchial lavage are still pending. There is some gram-positive cocci growing and there is also staph aureus in the blood. Her current antibiotic coverage included a combination of cefepime and vancomy molly. She was hypothermic earlier with a drop in the temperature down to 95 and she was given external warming. Meanwhile, her the least count is at 3.9 with a hemoglobin of 9.3 which is stable and the platelet count is not resulted yet. BUN is 41 with a creatinine of 0.6 and sodium is at 137 and a serum bicarb is at 25. She is on no pressors for now. IV fluids are in the form of normal saline at rate of 50 mL an hour. Her overall fluid balance is +3.3 L over the past 24 hours. Doppler of the lower extremity was negative and the echocardiogram that was done yesterday showed a preserved LV function with ejection fraction of 55%. There was moderate LV wall thickness. Moderate calcification of the mitral valve and regurgitation, moderate aortic stenosis with a gradient of 27. No evidence of any pericardial effusion. She is also receiving enteral feeding for nutritional support and currently she is on vital HP at the rate of 20 7 2022, the patient remains sedated and paralyzed. On today's evaluation, propofol is running at 50 mcg/kg/m and index is running at 1 mcg/kg/m. She remains sedated and paralyzed. She remains on a mechanical ventilator. She is on assist-control mode at the rate of 28, tidal volume of 400, FiO2 of 60% with a PEEP of 12. Blood gas from today showed a pH of 7.28 with a pCO2 of 55 and pO2 of 71. There is only limited improvement in oxygenation compared to yesterday. The peak airway pressure is currently at 29. Meanwhile, the patient had staph aureus in her blood. The bronchial washings are also growing a gram- positive cocci and the final cultures are still pending for now. We opted to keep the patient on broad-spectrum antibiotics and she remains on a combination of cefepime and vancomycin. The vancomycin trough level was 23.1. Rest of the labs show a white cell count 17.6 with a hemoglobin of 10.4. The BUN is 59 with a creatinine of 1.01. Sodium is at 135. The net fluid balance over the past 24 hours is +1.5 L. IV fluids are currently at 50 mL an hour of normal saline. She remains on IV Solu-Medrol 60 mg IV every 6 hours. She is receiving enteral feeding for nutritional support and currently she is on vital high-protein at the rate of 39 mL an hour. Had echocardiogram was completed and the patient was found to have a normal ejection fraction of 55%. Nevertheless, there was evidence of aortic stenosis that was moderate in severity with a gradient of 27 and there was moderate degree of mitral regurgitation. Minimal edema in her upper extremities. No pressors for now. 10/10/2022, the patient remains sedation since and paralyzed. We will try to get the patient off paralytics yesterday and she failed and the patient became asynchronous with a mechanical ventilator and she was desaturating. Based on that, Nimbex was restarted and currently Nimbex is running at 1 mcg/kg/m and the patient is also on propofol running at 50 mcg/kg/m and this is day original doses from yesterday. Meanwhile, the patient remains intubated on a mechanical ventilator. On today's evaluation, she is still on assist-control mode at a rate of 26 with a tidal volume of 400 and FiO2 of 60% with a PEEP of 12. Peak airway pressure is 29. Blood gas from today shows a pH of 7.29 with a pCO2 of 53 and pO2 of 68. Noted bronchoscopy was done. The bronchial lavage showed influenza A and staph aureus which was essentially and MSSA. The patient remains on bronchodilators. The patient remains on cefepime and vancomycin will be discontinued today. The patient remains on Tamiflu. The patient remains on IV Solu-Medrol. Repeat chest x-ray shows stable bilateral pulmonary infiltrates although comparing it to the earlier chest x-ray, there is ongoing slow improvement of the chest x-ray findings. The patient's blood work shows a WBC count of 7.1, hemoglobin of 9.6 and a platelet count of 52. Sodium is at 140 with a potassium level of 4.9. BUN is at 70 with a creatinine of 1.1. Glucose at 189. She is receiving enteral feeding for nutritional support and she is currently on vital high-protein at the rate of 39 mL an hour. She is tolerating her enteral feeding. Fluid balance has been positive and the patient is receiving a doses. Overall fluid balance for yesterday was 1.7 L positive. Her echocardiogram showing preserved LV function, moderate mitral regurgitation. She is afebrile. She is hemodynamically stable. She is on no pressors for now. On a separate note, the patient developed some diarrhea. Few medical management system was applied. Stool was negative for C. diff. regards to blood sugar control, she was having elevated blood sugars and ultimately she was switched an insulin drip which is running at 8.5 units an hour. Objective - Vital Signs Vital signs: Vital Signs Temp 97.9 F 10/10/22 04:00 Pulse 95 10/10/22 07:00 Resp 26 H 10/10/22 07:00 BP 153/61 10/10/22 07:00 Pulse Ox 92 L 10/10/22 07:00 FiO2 60 10/10/22 07:34 Intake & Output 10/09/22 10/10/22 10/10/22 18:59 06:59 18:59 Intake Total 2851.211 1824.647 128.667 Output Total 1150 655 50 Balance 288.574 0102.647 78.667 Intake: IV 853 806 26 .9NS 160 240 20 0.9NS Pressure Bag 72 66 6 Cefepime 2 gm In Sodium 100 Chloride 0.9% 100 ml @ 25 mls/hr IVPB Q12HR [facility] Rx #:[id number] Sodium Chloride 0.9% 1, 20 000 ml @ 50 mls/hr IV . Q20H [facility] Rx#:[id number] Vancomycin 1,750 mg In 501 500 Sodium Chloride 0.9% 500 ml 500 ml @ 167 mls/hr IVPB Q12H [facility] Rx#: [id number] Intake, IV Titration 495.469 716.647 63.667 Amount Cefepime 2 gm In Sodium 100 Chloride 0.9% 100 ml @ 25 mls/hr IVPB Q12HR [facility] Rx #:[id number] Cisatracurium 200 mg In 107.04 75.151 63.667 Sodium Chloride 0.9% 180 ml @ 1 MCG/KG/MIN 6.69 mls/hr IV .Q24H [facility] Rx#: [id number] Insulin Regular 100 unit 17.483 112.363 In Sodium Chloride 0.9% 100 ml @ Titrate IV .Q0M [facility] Rx#:[id number] propofoL 1,000 mg In 370.946 429.133 Empty Bag 1 bag @ 15 MCG/ KG/MIN 10.035 mls/hr IV . Q9H58M [facility] Rx#:[id number] Tube Feeding 195 429 39 Other 90 Output: Urine 1150 655 50 Other: Voiding Method Indwelling Catheter Indwelling Catheter # Bowel Movements 1 ABP, PAP, CO, CI - Last Documented Arterial Blood Pressure 169/51 - Exam Calm and comfortable and sedated and paralyzed. The patient has a left IJ triple-lumen catheter in place. HEENT examination is grossly unremarkable. Neck supple. Full range of motion. No adenopathy thyromegaly or neck vein distention. Cardiovascular examination reveals regular rhythm rate. S1-S2 normal. No S3 or S4. No discernible murmur noted. Lungs reveal coarse bilateral inspiratory and expiratory wheezes and rhonchi. No crackles. Breath sounds are equal bilaterally. Abdomen soft bowel sounds are heard. No masses or tenderness. Extremities are intact. No cyanosis clubbing or edema. Skin is without rash or lesion. Neurologic examination is brief but nonfocal. The patient is currently sedated and paralyzed. - Labs CBC & Chem 7: 10/10/22 05:35 10/10/22 05:35 Labs: Abnormal Lab Results - Last 24 Hours (Table) 10/09/22 10/09/22 10/09/22 Range/Units 05:30 10:50 12:51 RBC (3.80-5.40) m/uL Hgb (11.4-16.0) gm/dL Hct (34.0-46.0) % Plt Count (150-450) k/uL Lymphocytes # (1.0-4.8) k/uL ABG pH (7.35-7.45) ABG pCO2 (35-45) mmHg ABG pO2 (83-108) mmHg ABG HCO3 (21-25) mmol/L ABG Total CO2 (19-24) mmol/L ABG O2 Saturation (94-97) % Chloride (98-107) mmol/L BUN (7-17) mg/dL Creatinine (0.52-1.04) mg/dL Glucose (74-99) mg/dL POC Glucose (mg/dL) 376 H 350 H (70-110) mg/dL Hemoglobin A1c 6.2 H (0.0-6.0) % Calcium (8.4-10.2) mg/dL Total Bilirubin (0.2-1.3) mg/dL AST (14-36) U/L ALT (4-34) U/L Albumin (3.5-5.0) g/dL 10/09/22 10/09/22 10/09/22 Range/Units 15:08 16:04 17:15 RBC (3.80-5.40) m/uL Hgb (11.4-16.0) gm/dL Hct (34.0-46.0) % Plt Count (150-450) k/uL Lymphocytes # (1.0-4.8) k/uL ABG pH (7.35-7.45) ABG pCO2 (35-45) mmHg ABG pO2 (83-108) mmHg ABG HCO3 (21-25) mmol/L ABG Total CO2 (19-24) mmol/L ABG O2 Saturation (94-97) % Chloride (98-107) mmol/L BUN (7-17) mg/dL Creatinine (0.52-1.04) mg/dL Glucose (74-99) mg/dL POC Glucose (mg/dL) 369 H 296 H 302 H (70-110) mg/dL Hemoglobin A1c (0.0-6.0) % Calcium (8.4-10.2) mg/dL Total Bilirubin (0.2-1.3) mg/dL AST (14-36) U/L ALT (4-34) U/L Albumin (3.5-5.0) g/dL 10/09/22 10/09/22 10/09/22 Range/Units 18:00 19:17 20:11 RBC (3.80-5.40) m/uL Hgb (11.4-16.0) gm/dL Hct (34.0-46.0) % Plt Count (150-450) k/uL Lymphocytes # (1.0-4.8) k/uL ABG pH (7.35-7.45) ABG pCO2 (35-45) mmHg ABG pO2 (83-108) mmHg ABG HCO3 (21-25) mmol/L ABG Total CO2 (19-24) mmol/L ABG O2 Saturation (94-97) % Chloride (98-107) mmol/L BUN (7-17) mg/dL Creatinine (0.52-1.04) mg/dL Glucose (74-99) mg/dL POC Glucose (mg/dL) 292 H 253 H 233 H (70-110) mg/dL Hemoglobin A1c (0.0-6.0) % Calcium (8.4-10.2) mg/dL Total Bilirubin (0.2-1.3) mg/dL AST (14-36) U/L ALT (4-34) U/L Albumin (3.5-5.0) g/dL 10/09/22 10/09/22 10/09/22 Range/Units 20:52 22:01 23:02 RBC (3.80-5.40) m/uL Hgb (11.4-16.0) gm/dL Hct (34.0-46.0) % Plt Count (150-450) k/uL Lymphocytes # (1.0-4.8) k/uL ABG pH (7.35-7.45) ABG pCO2 (35-45) mmHg ABG pO2 (83-108) mmHg ABG HCO3 (21-25) mmol/L ABG Total CO2 (19-24) mmol/L ABG O2 Saturation (94-97) % Chloride (98-107) mmol/L BUN (7-17) mg/dL Creatinine (0.52-1.04) mg/dL Glucose (74-99) mg/dL POC Glucose (mg/dL) 215 H 187 H 151 H (70-110) mg/dL Hemoglobin A1c (0.0-6.0) % Calcium (8.4-10.2) mg/dL Total Bilirubin (0.2-1.3) mg/dL AST (14-36) U/L ALT (4-34) U/L Albumin (3.5-5.0) g/dL 10/10/22 10/10/22 10/10/22 Range/Units 00:25 01:06 02:00 RBC (3.80-5.40) m/uL Hgb (11.4-16.0) gm/dL Hct (34.0-46.0) % Plt Count (150-450) k/uL Lymphocytes # (1.0-4.8) k/uL ABG pH (7.35-7.45) ABG pCO2 (35-45) mmHg ABG pO2 (83-108) mmHg ABG HCO3 (21-25) mmol/L ABG Total CO2 (19-24) mmol/L ABG O2 Saturation (94-97) % Chloride (98-107) mmol/L BUN (7-17) mg/dL Creatinine (0.52-1.04) mg/dL Glucose (74-99) mg/dL POC Glucose (mg/dL) 162 H 149 H 126 H (70-110) mg/dL Hemoglobin A1c (0.0-6.0) % Calcium (8.4-10.2) mg/dL Total Bilirubin (0.2-1.3) mg/dL AST (14-36) U/L ALT (4-34) U/L Albumin (3.5-5.0) g/dL 10/10/22 10/10/22 10/10/22 Range/Units 02:57 04:12 05:12 RBC (3.80-5.40) m/uL Hgb (11.4-16.0) gm/dL Hct (34.0-46.0) % Plt Count (150-450) k/uL Lymphocytes # (1.0-4.8) k/uL ABG pH (7.35-7.45) ABG pCO2 (35-45) mmHg ABG pO2 (83-108) mmHg ABG HCO3 (21-25) mmol/L ABG Total CO2 (19-24) mmol/L ABG O2 Saturation (94-97) % Chloride (98-107) mmol/L BUN (7-17) mg/dL Creatinine (0.52-1.04) mg/dL Glucose (74-99) mg/dL POC Glucose (mg/dL) 135 H 194 H 186 H (70-110) mg/dL Hemoglobin A1c (0.0-6.0) % Calcium (8.4-10.2) mg/dL Total Bilirubin (0.2-1.3) mg/dL AST (14-36) U/L ALT (4-34) U/L Albumin (3.5-5.0) g/dL 10/10/22 10/10/22 10/10/22 Range/Units 05:35 05:35 06:06 RBC 3.09 L (3.80-5.40) m/uL Hgb 9.6 L (11.4-16.0) gm/dL Hct 30.2 L (34.0-46.0) % Plt Count 52 L (150-450) k/uL Lymphocytes # 0.2 L (1.0-4.8) k/uL ABG pH 7.29 L (7.35-7.45) ABG pCO2 53 H (35-45) mmHg ABG pO2 68 L (83-108) mmHg ABG HCO3 26 H (21-25) mmol/L ABG Total CO2 27 H (19-24) mmol/L ABG O2 Saturation 92.9 L (94-97) % Chloride 113 H (98-107) mmol/L BUN 71 H (7-17) mg/dL Creatinine 1.11 H (0.52-1.04) mg/dL Glucose 189 H (74-99) mg/dL POC Glucose (mg/dL) (70-110) mg/dL Hemoglobin A1c (0.0-6.0) % Calcium 6.7 L (8.4-10.2) mg/dL Total Bilirubin 2.2 H (0.2-1.3) mg/dL AST 74 H (14-36) U/L ALT 69 H (4-34) U/L Albumin 2.3 L (3.5-5.0) g/dL 10/10/22 10/10/22 Range/Units 06:25 07:10 RBC (3.80-5.40) m/uL Hgb (11.4-16.0) gm/dL Hct (34.0-46.0) % Plt Count (150-450) k/uL Lymphocytes # (1.0-4.8) k/uL ABG pH (7.35-7.45) ABG pCO2 (35-45) mmHg ABG pO2 (83-108) mmHg ABG HCO3 (21-25) mmol/L ABG Total CO2 (19-24) mmol/L ABG O2 Saturation (94-97) % Chloride (98-107) mmol/L BUN (7-17) mg/dL Creatinine (0.52-1.04) mg/dL Glucose (74-99) mg/dL POC Glucose (mg/dL) 176 H 176 H (70-110) mg/dL Hemoglobin A1c (0.0-6.0) % Calcium (8.4-10.2) mg/dL Total Bilirubin (0.2-1.3) mg/dL AST (14-36) U/L ALT (4-34) U/L Albumin (3.5-5.0) g/dL Microbiology - Last 24 Hours (Table) 10/06/22 12:05 Blood Culture Gram Stain - Final Blood Blood Culture - Final Staphylococcus aureus 10/07/22 11:52 Gram Stain - Final Bronchial Washings - Right Bronchial Washings Culture - Final Staphylococcus aureus Assessment and Plan Plan: Multifocal pneumonia post influenza A infection. The patient was infected with influenza and subsequently decompensated and developed diffuse bilateral pulmonary infiltrates, patchy areas of consolidation, suspicious for a bacterial infection. The patient underwent bronchoscopy and bronchial lavage. Lavage was positive for influenza a and MSSA. The blood culture was also positive for MSSA. The chest x-ray showing limited but slow improvement in the diffuse bilateral pulmonary infiltrates. She remains on high PEEP of 12 and FiO2 of 60%. Oxygenation still borderline. Failed paralytic holiday yesterday. Staph Aureus sepsis, and the patient has MSSA pneumonia and sepsis History of atrial fibrillation. Current rhythm is sinus History of valvular heart disease with aortic valve replacement. The repeat echocardiogram shows moderate degree of aortic valve stenosis History of heart failure. Left ventricle ejection fraction is preserved at 55% History of diabetes mellitus. The patient is currently having elevated blood sugars. She is on insulin drip for blood sugar control at 8 units an hour Gastroesophageal reflux disease. Hyperlipidemia. Hypertension. History of sleep apnea syndrome. History of hypothyroidism. Obesity. Multiple other medical problems and comorbidities. Thrombocytopenia, with a previous history of ITP, currently on IV Solu-Medrol. Will monitor the platelet count and will keep the Lovenox for now for DVT prophylaxis and a platelet count is stable at 87 Plan Continue ventilator support and no changes in the mechanical ventilator for today The patient has MSSA and the vancomycin will be discontinued IV fluids to KVO Start the patient on Lasix 20 mg IV every 12 hours daily Keep sedation with propofol Give the patient a paralytic holiday and discontinued the Nimbex of the patient remains synchronous with a mechanical ventilator Continue the IV Solu-Medrol, IV Solu-Medrol to 40 mg every 12 hours Continue Tamiflu cefepime Echocardiogram was adequate and the Doppler of the lower extremities is were negative Continue enteral feeding for nutritional support No pressors for now Increase Levemir to 24 units BID and continue the sliding scale coverage discontinue the insulin drip We'll continue to follow. Condition remains critical and the main communicating with the family on a regular basis. Family has been updated and will continue to follow make further recommendations based on her progress. There is a critical care evaluation that was done in more than 30 minutes. Time with Patient: Greater than 30
[2022-10-10] MEDS: BUDESONIDE 1 MG/2 ML NEBU INHALATION SCH ×2 (07:49→19:20)
[2022-10-10] MEDS: FORMOTEROL FUMARATE 20 MCG/2 ML NEBU INHALATION SCH ×2 (07:50→19:38)
[2022-10-10 07:56] LABS: Glucose,Whole Blood 179 mg/dL (70-110)
[2022-10-10] MEDS: CITALOPRAM HYDROBROMIDE 20 MG TAB PO SCH (09:37)
[2022-10-10] MEDS: ENOXAPARIN 40 MG/0.4 ML SYRINGE SQ SCH (09:37)
[2022-10-10] MEDS: METOPROLOL TARTRATE 25 MG TAB PO SCH (09:37)
[2022-10-10] MEDS: CHLORHEXIDINE GLUCONATE 15 ML CUP MUCOUS MEM SCH ×2 (09:38→20:37)
[2022-10-10] MEDS: FERROUS SULFATE ORAL ELIXIR 300 MG/5 ML CUP PO SCH ×2 (09:38→21:17)
[2022-10-10] MEDS: DICYCLOMINE 10 MG CAP PO SCH ×3 (09:38→21:17)
[2022-10-10] MEDS: CEFEPIME 2 GM in SODIUM CHLORIDE 0.9% 100 ML IVPB SCH (09:38)
[2022-10-10] MEDS: methylPREDNISolone SOD SUCCI 40 MG/ML 1 ML VIAL IV SCH ×2 (09:55→20:38)
[2022-10-10] MEDS: FUROSEMIDE 10 MG/ML 2 ML VIAL IV SCH ×2 (09:55→20:39)
[2022-10-10 10:09] LABS: Glucose,Whole Blood 171 mg/dL (70-110)
[2022-10-10] MEDS: Dulaglutide [Trulicity] 0.75 MG/0.5 ML Each SQ SCH (11:38)
[2022-10-10] MEDS: CLEVIDIPINE BUTYRATE 25 MG in EMPTY BAG 1 BAG IV SCH (11:38)
[2022-10-10 11:49] LABS: Glucose,Whole Blood 176 mg/dL (70-110)
[2022-10-10] MEDS ORDERED: VANCOMYCIN TROUGH DUE 1 EACH MISC MISCELLANE ONE (13:00)
[2022-10-10] MEDS: HYDROmorphone 0.5 MG/0.5 ML SYRINGE IVP PRN ×2 (14:15→19:01)
[2022-10-10 14:56] LABS: Glucose,Whole Blood 144 mg/dL (70-110)
[2022-10-10 17:09] LABS: Glucose,Whole Blood 137 mg/dL (70-110)
[2022-10-10] MEDS: NOREPINEPHRINE 8 MG in SODIUM CHLORIDE 0.9% 250 ML IV SCH (17:35)
--- NOTE | 2022-10-10 17:52 | P.PN ---
Progress Note - Text Progress Note Date: 10/10/22 This is 61-year-old white female with history of depression and bipolar disorder who has history of GI bleed in the past who came in after two-week history of worsening sickness. The patient states upper respiratory congestion. The patient supposedly has had transfusion in about 3-4 months ago due to GI bleed with cauterization. Question element of AV malformation. The patient is new to me. She is nonsmoker. No known sick contacts are stated. She is resting comfortably in her stretcher today. She is a nonsmoker. 10/02/2022 Patient is seen and evaluated and follow-up covering for Dr. Alvin Hartley and patient coming in with worsening generalized weakness and upper respiratory abbe estion. Pulmonary is following and patient was continued on breathing treatments along with IV steroids and being treated for acute flu. Last reviewed and stable. Patient is continued on 2 L nasal cannula with continued congestion and cough. Patient denies chest pain or palpitations. Patient has been up to the bathroom. No reports of nausea or vomiting noted. Wean FiO2 as tolerated. 10/03/2022 She is seen and evaluated in follow-up today with pulmonary following. Patient is maintained on room air maintaining 92-93%. Blood sugars mildly elevated and will continue with current regimen. Patient is continued on IV Solu-Medrol at 60 mg every 6 along with DuoNeb treatments. We'll obtain a chest x-ray today. Patient is currently afebrile denies chest pain or palpitations. Patient c ontinues to have a cough with generalized fatigue and dyspnea with exertion and encourage the patient to increase activity as tolerated. Encourage oral intake and will discuss possible discharge in the next 24-48 hours 10/04/2022 Patient is seen and evaluated and follow-up with pulmonary following. Patient has been maintained on IV steroids and continues to be short of breath with minimal exertion. Patient requiring 2-3 L via nasal cannula reports she does not normally wear oxygen the outpatient setting. Chest x-ray from yesterday showed atelectasis versus pulmonary edema and was given a dose of Lasix. Patient will be given a dose of Lasix today. Patient reports she has been urinating more frequently since the last dose. Repeat BNP today is 1020 magnesium is 1.7. Blood sugars are elevated and maintained on sliding scale and will add low-dose long-acting given the steroids. Recommend Accu-Cheks before meals and at bedtime and close monitoring. Patient is afebrile denies chest pain or palpitations. Patient continues to report shortness of breath and difficulty in breathing. Patient denies nausea or vomiting and tolerating diet. 10/05/2022: I assumed care of the patient today. Sitting up in a recliner. Short of breath. Wheezing. Change to nebulized form off Perforomist and Pulmicort. Increase DuoNeb to every 4. Warm water with salt gargle. Patient is having significant coughing and throat pain. Follow with pulmonary. 10/06/2022: 100 this morning patient became more and more short of breath. Wheezing. Hypoxic. Was put on a BiPAP nonrebreather. As per Mr. has deteriorated patient smoked with ICU intubated. Put on cleviprex drip and Nimbex. On 100% FiO2. 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 10/07/2022: ICU. Intubated. FiO2 100 a PEEP of 10. Under underwent bronchoscopy by Dr. Weller. No major findings. Current drips include propofol and Nimbex. Patient's of levo fed. No secretions. Discussed with the patient's daughter at the bedside. Doppler ultrasound lower extremity ordered. Empirically on IV cefepime 10/08/2022: ICU. Intubated. FiO2 16 a PEEP of 12. Telemetry sinus rhythm. Drips include propofol and Nimbex. On IV cefepime. IV vancomycin. Blood cultures been trying staph aureus. Daughter at the bedside. 10/09/2022: ICU. Intubated. FiO2 16.. Drips include propofol. Suspect. Bronchial washings confirmed MSSA. Blood cultures not finalized. On IV cefepime and vancomycin. Levemir adjusted 10/10/2022: ICU. Intubated. FiO2 16 a PEEP of 12. Telemetry sinus rhythm. Drips include insulin and propofol. Bronchial washings and blood cultures both confirmed MSSA. Vancomycin discontinued. Active Medications Acetaminophen (Acetaminophen Tab 325 Mg Tab) 650 mg PO Q6HR PRN PRN Reason: Mild Pain or Fever > 100.5 Last Admin: 10/07/22 10:05 Dose: 650 mg Hydrocodone Bitart/Acetaminophen (Hydrocodone/Apap 5-325mg 1 Each Tab) 1 each PO Q4H PRN PRN Reason: Pain Last Admin: 10/08/22 03:59 Dose: 1 each Albuterol/Ipratropium (Ipratropium-Albuterol 3 Ml Neb) 3 ml INHALATION RT-Q4H [facility] Last Admin: 10/10/22 15:13 Dose: 3 ml Artificial Tears (Artificial Tears-Hypromellose Drops 15 Ml Btl) 2 drops BOTH EYES Q4HR [facility] Last Admin: 10/10/22 17:33 Dose: 2 drops Atorvastatin Calcium (Atorvastatin 40 Mg Tab) 40 mg PO HS [facility] Last Admin: 10/09/22 20:51 Dose: 40 mg Budesonide (Budesonide 1 Mg/2 Ml Nebu) 1 mg INHALATION RT-BID [facility] Last Admin: 10/10/22 07:49 Dose: 1 mg Chlorhexidine Gluconate (Chlorhexidine Gluconate 15 Ml Cup) 15 ml MUCOUS MEM BID [facility] Last Admin: 10/10/22 09:38 Dose: 15 ml Citalopram Hydrobromide (Citalopram Hydrobromide 20 Mg Tab) 40 mg PO DAILY [facility] Last Admin: 10/10/22 09:37 Dose: 40 mg Cyclobenzaprine HCl (Cyclobenzaprine 10 Mg Tab) 10 mg PO TID PRN PRN Reason: Muscle Pain Dextrose/Water (Dextrose 50% Syringe 50 Ml) 25 ml IVP PER PROTOCOL PRN; Protocol PRN Reason: Hypoglycemia Dextrose/Water (Dextrose 50% Syringe 50 Ml) 50 ml IVP PER PROTOCOL PRN; Protocol PRN Reason: Hypoglycemia Dextrose/Water (Dextrose 50% Syringe 50 Ml) 50 ml IVP PER PROTOCOL PRN; Protocol PRN Reason: Hypoglycemia Dicyclomine HCl (Dicyclomine 10 Mg Cap) 10 mg PO TID [facility] Last Admin: 10/10/22 17:34 Dose: 10 mg Enoxaparin Sodium (Enoxaparin 40 Mg/0.4 Ml Syringe) 40 mg SQ DAILY [facility] Last Admin: 10/10/22 09:37 Dose: 40 mg Ferrous Sulfate (Ferrous Sulfate Oral Elixir 300 Mg/5 Ml Cup) 300 mg PO BID [facility] Last Admin: 10/10/22 09:38 Dose: 300 mg Formoterol Fumarate (Formoterol Fumarate 20 Mcg/2 Ml Nebu) 20 mcg INHALATION RT-BID [facility] Last Admin: 10/10/22 07:50 Dose: 20 mcg Furosemide (Furosemide 10 Mg/Ml 2 Ml Vial) 20 mg IV Q12HR [facility] Last Admin: 10/10/22 09:55 Dose: 20 mg Guaifenesin (Guaifenesin Syrup 100mg/5ml 200 Mg/10 Ml Cup) 400 mg PO Q4H [facility] Last Admin: 10/10/22 17:35 Dose: 400 mg Hydromorphone HCl (Hydromorphone 0.5 Mg/0.5 Ml Syringe) 0.5 mg IVP Q3HR PRN PRN Reason: Pain Last Admin: 10/10/22 14:15 Dose: 0.5 mg Propofol 1,000 mg/ IV Solution 100 mls @ 10.035 mls/hr IV .Q9H58M [facility]; Protocol Last Admin: 10/10/22 16:14 Dose: 50 mcg/kg/min, 33.45 mls/hr Clevidipine 25 mg/ IV Solution 50 mls @ 2 mls/hr IV .Q24H [facility]; Protocol Last Admin: 10/10/22 11:38 Dose: Not Given Cisatracurium Besylate 200 mg/ (Sodium Chloride) 200 mls @ 6.69 mls/hr IV .Q24H [facility]; Protocol Last Titration: 10/10/22 13:45 Dose: 1 mcg/kg/min, 6.69 mls/hr Norepinephrine Bitartrate 8 mg (/ Sodium Chloride) 258 mls @ 6.473 mls/hr IV .Q24H [facility]; Protocol Last Admin: 10/10/22 17:35 Dose: Not Given Insulin Human Regular 100 unit (/ Sodium Chloride) 100 mls @ 0 mls/hr IV .Q0M [facility]; Protocol Last Titration: 10/10/22 17:25 Dose: Infused Cefepime HCl 2 gm/ Sodium (Chloride) 100 mls @ 25 mls/hr IVPB Q12HR [facility]; Pr otocol Last Admin: 10/10/22 09:38 Dose: 25 mls/hr Insulin Detemir (Insulin Detemir (Levemir) 100 Unit/Ml Syr) 24 unit SQ BID [facility] Levothyroxine Sodium (Levothyroxine 137 Mcg Tab) 137 mcg PO DAILY@0630 [facility] Last Admin: 10/10/22 06:32 Dose: 137 mcg Loratadine (Loratadine 10 Mg Tab) 10 mg PO HS [facility] Last Admin: 10/09/22 20:52 Dose: 10 mg Methylprednisolone Sodium Succinate (Methylprednisolone Sod Succi 40 Mg/Ml 1 Ml Vial) 40 mg IV Q12HR [facility] Last Admin: 10/10/22 09:55 Dose: 40 mg Metoprolol Tartrate (Metoprolol Tartrate 25 Mg Tab) 37.5 mg PO DAILY [facility] Last Admin: 10/10/22 09:37 Dose: 37.5 mg Miscellaneous Information (Potassium Replacement Protocol 1 Each Misc) 1 each MISCELLANE DAILY PRN PRN Reason: Per Protocol Miscellaneous Information (Magnesium Replacement Protocol 1 Each Misc) 1 each MISCELLANE DAILY PRN; Protocol PRN Reason: Per Protocol Miscellaneous Information (Phosphorus Replacement Protoco 1 Each Misc) 1 each MISCELLANE DAILY PRN; Protocol PRN Reason: Per Protocol Naloxone HCl (Naloxone 0.4 Mg/Ml 1 Ml Vial) 0.2 mg IV Q2M PRN PRN Reason: Opioid Reversal Dulaglutide [ Trulicity] 0.75 Mg/0 .5 Ml Each 0.75 mg SQ [facility] Last Admin: 10/10/22 11:38 Dose: Not Given Ondansetron HCl (Ondansetron 4 Mg/2 Ml Vial) 4 mg IVP Q8HR PRN PRN Reason: Nausea And Vomiting Oseltamivir Phosphate (Oseltamivir 60 Mg/10 Ml Oral Syringe) 30 mg PO Q12HR [facility]; Protocol Stop: 10/13/22 21:01 Last Admin: 10/10/22 09:56 Dose: 30 mg Quetiapine Fumarate (Quetiapine 100 Mg Tab) 100 mg PO [facility] Last Admin: 10/09/22 20:52 Dose: 100 mg On examination: VITAL SIGNS: 98.8, 85, 26, 16 2 x 52, 92.11 ventilator GENERAL APPEARANCE: in bed, intubated, ET tube HEENT: Normal external appearance of nose and ear. Oral cavity dry EYES: Pupils equal. Conjunctiva normal. NECK: JVD not raised. Mass not palpable. RESPIRATORY: Respiratory effort increased. Lungs breath sounds, wheezing, crackles CARDIOVASCULAR: First and second sounds normal. No edema. ABDOMEN: Soft. Liver and spleen not palpable. No tenderness. No mass palpable. PSYCHIATRY: Sedated INVESTIGATIONS, reviewed in the clinical context: 10/10/2022: White count 7.1 hemoglobin 9.6 platelets 52 potassium 4.9 creatinine 1.11 Blood culture: MSSA Bronchial culture: MSSA 10/09/2022: White count 13.6 and globin 10.4. DVT 7 potassium 5.1 creatinine 1.01 ABG: PH 7.28 pCO2 55 pO2 71 10/08/2022: White count 3.9 hemoglobin 9.3 platelets 53 potassium 4.6 creatinine 0.68 10/07/2022: WBC 5.8 hemoglobin 9.6 platelets 584 0.5 BUN 26 creatinine 0.05 Bronchoscopy: Essentially unremarkable 10/06/2022: PH 7.3 pO2 77 FiO2 100%. Chest x-ray film. Bilateral infiltrate Sodium 136 potassium 3.8 creatinine 0.7 Chest x-ray film personally reviewed by me-scattered fine infiltrates Influenza A positive Assessment and plan: -Acute severe Influenza a pneumonitis -Acute severe COPD exacerbation in an ex-smoker: Slow to respond DuoNeb to every 4, nebulized Pulmicort and Perforomist, IV Solu-Medrol -secondary bacterial pneumonia with sepsis with lavage cultures and blood cultures positive for MSSA, Patient IV cefepime. Possible change to IV Unasyn -Sepsis with positive blood cultures MSSA Possibly changed to IV Unasyn -Troponinemia, type II [place]. -Acute hypoxic respiratory failure secondary to COPD and influenza A: Not improving Patient intubated [October 06]. Ventilator support -Chronic normocytic anemia -Chronic ITP Follow platelets -Essential Hypertension Lopressor -Lactic acidosis, improved -Nonalcoholic steatohepatitis -Status post aortic valve replacement history -Hyperlipidemia Lipitor -Hypothyroid Synthroid 137 g -Diabetes mellitus type 2 Continue Trulicity. Follow Accu-Cheks with sliding scale -Obesity BMI 36.3 Weight loss measures -Full code Intubated. ICU. IV cefepime. IV Nimbex. IV propofol. IV Solu-Medrol. Will switch antibiotic to IV Unasyn.
[2022-10-10] MEDS: CISATRACURIUM 200 MG in SODIUM CHLORIDE 0.9% 180 ML IV SCH (18:12)
[2022-10-10 18:18] LABS: Glucose,Whole Blood 160 mg/dL (70-110)
[2022-10-10] MEDS: AMPICILLIN-SULBACTAM 3 GM in SODIUM CHLORIDE 0.9% 100 ML IVPB SCH (19:02)
[2022-10-10] MEDS ORDERED: DEXTROSE 50% SYRINGE 50 ML IVP PRN ×2 (19:51)
[2022-10-10 20:20] LABS: Glucose,Whole Blood 231 mg/dL (70-110)
[2022-10-10] MEDS: ATORVASTATIN 40 MG TAB PO SCH (20:38)
[2022-10-10] MEDS: INSULIN ASPART (NovoLOG) 100 UNIT/ML VIAL SQ SCH (20:38)
[2022-10-10] MEDS: LORATADINE 10 MG TAB PO SCH (20:38)
[2022-10-10] MEDS: QUEtiapine 100 MG TAB PO SCH (21:17)
[2022-10-11] MEDS: AMPICILLIN-SULBACTAM 3 GM in SODIUM CHLORIDE 0.9% 100 ML IVPB SCH ×3 (00:06→16:02)
[2022-10-11] MEDS: INSULIN ASPART (NovoLOG) 100 UNIT/ML VIAL SQ SCH ×2 (00:06→04:15)
[2022-10-11] MEDS: ARTIFICIAL TEARS-HYPROMELLOSE DROPS 15 ML BTL BOTH EYES SCH ×6 (00:06→20:40)
[2022-10-11 00:12] LABS: Glucose,Whole Blood 270 mg/dL (70-110)
[2022-10-11] MEDS: guaiFENesin SYRUP 100MG/5ML 200 MG/10 ML CUP PO SCH ×6 (00:48→21:05)
[2022-10-11] MEDS: HYDROmorphone 0.5 MG/0.5 ML SYRINGE IVP PRN ×4 (00:52→19:50)
[2022-10-11] MEDS: IPRATROPIUM-ALBUTEROL 3 ML NEB INHALATION SCH ×6 (03:09→23:40)
[2022-10-11 04:05] LABS: Glucose,Whole Blood 258 mg/dL (70-110)
[2022-10-11 05:03] LABS: Basophils % (A) 0 %; Eosinophils % (A) 0 %; HCT 29.9 % (34.0-46.0); HGB 9.5 gm/dL (11.4-16.0); Hypochromasia Marked; Lymphocytes # (A) 0.1 k/uL (1.0-4.8); Lymphocytes % (A) 2 %; MCHC 31.8 g/dL (31.0-37.0); MCV 97.5 fL (80.0-100.0); Mean Platelet Volume 11.5; Monocytes # (A) 0.3 k/uL (0-1.0); Monocytes % (A) 4 %; Neutrophils # (A) 7.5 k/uL (1.3-7.7); Neutrophils % (A) 94 %; Poikilocytosis Slight; RBC 3.06 m/uL (3.80-5.40); RDW 14.5 % (11.5-15.5)
[2022-10-11 05:06] LABS: Platelet Count 50 k/uL (150-450)
[2022-10-11 05:15] LABS: ABG Base Excess -1.8 mmol/L; ABG HCO3 25 mmol/L (21-25); ABG Oxygen Saturation 92.3 % (94-97); ABG PCO2 52 mmHg (35-45); ABG PH 7.28 (7.35-7.45); ABG PO2 69 mmHg (83-108); ABG TCO2 27 mmol/L (19-24)
[2022-10-11 05:19] LABS: Calcium 6.9 mg/dL (8.4-10.2); Potassium 5.5 mmol/L (3.5-5.1)
[2022-10-11 05:29] LABS: Allen Test Performed? no
--- NOTE | 2022-10-11 06:11 | XR ---
EXAMINATION TYPE: XR chest 1V portable DATE OF EXAM: 10/11/2022 CLINICAL HISTORY: Difficulty breathing progress study. TECHNIQUE: Single AP portable semiupright view of the chest is obtained. COMPARISON: Chest x-ray from one day earlier and older studies FINDINGS: Stable endotracheal and orogastric tubes. Stable left-sided internal jugular central venou s catheter. Overlying sternal wires and left atrial appendage clip are redemonstrated. Metallic aorti c valve is again seen. Persistent mild cardiomegaly with bilateral increased multifocal opacities. Osseous structures are in tact. IMPRESSION: Mild cardiomegaly with bilateral multifocal acute infiltrates and/or edema redemonstrated . Small bilateral pleural effusions redemonstrated. Correlate for COVID-19 infection and/or CHF exace rbation. No significant change from one day earlier.
[2022-10-11] MEDS: LEVOTHYROXINE 137 MCG TAB PO SCH (06:20)
[2022-10-11] MEDS ORDERED: SODIUM BICARB 8.4% 50 ML SYR (1 MEQ/ML) IV STA ×2 (06:26)
[2022-10-11] MEDS ORDERED: SODIUM ZIRCONIUM CYCLOSILICATE 10 GM PACKET PO ONE (06:27)
[2022-10-11] MEDS ORDERED: DEXTROSE 5% IN WATER 100 ML with AMIODARONE 150 MG IV ONE (06:30)
[2022-10-11] MEDS ORDERED: AMIODARONE 360 MG in DEXTROSE 5% IN WATER 200 ML IV ONE ×2 (06:45)
[2022-10-11] MEDS: BUDESONIDE 1 MG/2 ML NEBU INHALATION SCH ×2 (08:30→19:18)
[2022-10-11] MEDS: FORMOTEROL FUMARATE 20 MCG/2 ML NEBU INHALATION SCH ×2 (08:30→19:18)
[2022-10-11 08:37] LABS: Glucose,Whole Blood 276 mg/dL (70-110)
[2022-10-11] MEDS: OSELTAMIVIR 60 MG/10 ML ORAL SYRINGE PO SCH ×2 (09:02→21:00)
[2022-10-11] MEDS: FERROUS SULFATE ORAL ELIXIR 300 MG/5 ML CUP PO SCH ×2 (09:02→20:59)
[2022-10-11] MEDS: ENOXAPARIN 40 MG/0.4 ML SYRINGE SQ SCH (09:02)
[2022-10-11] MEDS: CHLORHEXIDINE GLUCONATE 15 ML CUP MUCOUS MEM SCH ×2 (09:03→20:59)
[2022-10-11] MEDS: CITALOPRAM HYDROBROMIDE 20 MG TAB PO SCH (09:03)
[2022-10-11] MEDS: METOPROLOL TARTRATE 25 MG TAB PO SCH (09:04)
[2022-10-11] MEDS: DICYCLOMINE 10 MG CAP PO SCH ×3 (09:04→21:00)
[2022-10-11] MEDS: PANTOPRAZOLE 40 MG/10 ML VIAL IVP SCH (09:23)
[2022-10-11 10:53] LABS: Glucose,Whole Blood 303 mg/dL (70-110)
[2022-10-11] MEDS: INSULIN REGULAR 100 UNIT in SODIUM CHLORIDE 0.9% 100 ML IV SCH ×2 (11:00→21:08)
--- NOTE | 2022-10-11 11:27 | CDI ---
Documentation Clarification Form Date: 10/11/2022 11:13:28 AM From: Katarzyna Fischer CCS, CCDS Admit Date: 09/30/2022 10:09:00 PM Patient Name: Katerina Crabtree Visit Number: [id number] Discharge Date: ATTENTION: The Clinical Documentation Specialists (CDI) and [facility] Coding Staff appreciate your assistance in clarifying documentation. Please respond to the clarification below the line at the bottom and electronically sign. The CDI & [facility] Coding staff will review the response and follow-up if needed. Please note: Queries are made part of the Legal Health Record. If you have any questions, please contact the author of this message via ITS. Dr. Rajesh Figueroa: Chronic Anemia is documented in the 10/01 H/P and Chronic Normocytic Anemia is documented in the Attending Progress Notes beginning on 10/05 without further specificity. Additional specificity regarding the Type & Acuity of Anemia is requested. History/Risk Factors per the `10/01 H/P: GI Bleed, Atrial Fibrillation, CHF, DM, GERD, Hyperlipidemia, Hypertension, COVID Pneumonia 09/2021, Aortic Valve Replacement, DEISI, BMI 44.5, Enlarged fatty liver, Depression, Former smoker. Clinical indicators: Presented to the ED on 09/30 via EMS with SOB, cough & chills. Hypoxic at 80% on RA. Admit with Influenza A. Hemoglobin 09/30: 10.4. 10/02: 9.5. 10/06: 11.5. 10/07: 9.6. 10/08: 9.3. 10/09: 10.4. 10/10: 9.6. 10/11: 9.5. Hematocrit 09/30: 31.3. 10/02: 29.9. 10/06: 34.3. 10/07: 29.6. 10/08: 28.7. 10/09: 32.2. 10/10: 30.2. 10/11: 29.9. Treatment 09/30: O2 5Lnc, PO Tamiflu 75 mg x1, po Tylenol 1,000 mg x1, po Tylenol 650 mg q6H/prn, INH Duoneb 3 ml x1, IV Decadron 10 mg x1, IV Zofran 4 mg q8H/prn, IV Na Chl 1,000 mls @ 75 mls/hr q13H, IV Ampicillin 100 mls @ 200 mls/hr x1, IV Na Chl 1,700 mls @ 999 mls/hr q1H. Home meds: Carafate, Trulicity, Dicyclomine, Seroquel, Lopressor, Synthroid, [place], iron, Celexa, INH Symbicort, Flexeril, Zyrtec, Lipitor, INH Proair. Please clarify the Type and Acuity of Anemia: [ ] Chronic blood loss anemia [ ] Hemolytic anemia [ ] Drug induced anemia [ ] Nutritional anemia [ ] Anemia of chronic disease [ * ] Unable to determine [ ] Other, please specify (Template Last Revised: November 2020) MTDD
--- NOTE | 2022-10-11 11:57 | P.PN ---
Progress Note - Text Progress Note Date: 10/11/22 This is 61-year-old white female with history of depression and bipolar disorder who has history of GI bleed in the past who came in after two-week history of worsening sickness. The patient states upper respiratory congestion. The patient supposedly has had transfusion in about 3-4 months ago due to GI bleed with cauterization. Question element of AV malformation. The patient is new to me. She is nonsmoker. No known sick contacts are stated. She is resting comfortably in her stretcher today. She is a nonsmoker. 10/02/2022 Patient is seen and evaluated and follow-up covering for Dr. Alvin Hartley and patient coming in with worsening generalized weakness and upper respiratory abbe estion. Pulmonary is following and patient was continued on breathing treatments along with IV steroids and being treated for acute flu. Last reviewed and stable. Patient is continued on 2 L nasal cannula with continued congestion and cough. Patient denies chest pain or palpitations. Patient has been up to the bathroom. No reports of nausea or vomiting noted. Wean FiO2 as tolerated. 10/03/2022 She is seen and evaluated in follow-up today with pulmonary following. Patient is maintained on room air maintaining 92-93%. Blood sugars mildly elevated and will continue with current regimen. Patient is continued on IV Solu-Medrol at 60 mg every 6 along with DuoNeb treatments. We'll obtain a chest x-ray today. Patient is currently afebrile denies chest pain or palpitations. Patient c ontinues to have a cough with generalized fatigue and dyspnea with exertion and encourage the patient to increase activity as tolerated. Encourage oral intake and will discuss possible discharge in the next 24-48 hours 10/04/2022 Patient is seen and evaluated and follow-up with pulmonary following. Patient has been maintained on IV steroids and continues to be short of breath with minimal exertion. Patient requiring 2-3 L via nasal cannula reports she does not normally wear oxygen the outpatient setting. Chest x-ray from yesterday showed atelectasis versus pulmonary edema and was given a dose of Lasix. Patient will be given a dose of Lasix today. Patient reports she has been urinating more frequently since the last dose. Repeat BNP today is 1020 magnesium is 1.7. Blood sugars are elevated and maintained on sliding scale and will add low-dose long-acting given the steroids. Recommend Accu-Cheks before meals and at bedtime and close monitoring. Patient is afebrile denies chest pain or palpitations. Patient continues to report shortness of breath and difficulty in breathing. Patient denies nausea or vomiting and tolerating diet. 10/05/2022: I assumed care of the patient today. Sitting up in a recliner. Short of breath. Wheezing. Change to nebulized form off Perforomist and Pulmicort. Increase DuoNeb to every 4. Warm water with salt gargle. Patient is having significant coughing and throat pain. Follow with pulmonary. 10/06/2022: 100 this morning patient became more and more short of breath. Wheezing. Hypoxic. Was put on a BiPAP nonrebreather. As per Mr. has deteriorated patient smoked with ICU intubated. Put on cleviprex drip and Nimbex. On 100% FiO2. 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 10/07/2022: ICU. Intubated. FiO2 100 a PEEP of 10. Under underwent bronchoscopy by Dr. Weller. No major findings. Current drips include propofol and Nimbex. Patient's of levo fed. No secretions. Discussed with the patient's daughter at the bedside. Doppler ultrasound lower extremity ordered. Empirically on IV cefepime 10/08/2022: ICU. Intubated. FiO2 16 a PEEP of 12. Telemetry sinus rhythm. Drips include propofol and Nimbex. On IV cefepime. IV vancomycin. Blood cultures been trying staph aureus. Daughter at the bedside. 10/09/2022: ICU. Intubated. FiO2 16.. Drips include propofol. Suspect. Bronchial washings confirmed MSSA. Blood cultures not finalized. On IV cefepime and vancomycin. Levemir adjusted 10/10/2022: ICU. Intubated. FiO2 16 a PEEP of 12. Telemetry sinus rhythm. Drips include insulin and propofol. Bronchial washings and blood cultures both confirmed MSSA. Vancomycin discontinued. 10/11/2022: ICU. Intubated. FiO2 60 and a PEEP of 16. Drips include propofol, Nimbex, amiodarone, insulin. Has a effervescent place. Active Medications Acetaminophen (Acetaminophen Tab 325 Mg Tab) 650 mg PO Q6HR PRN PRN Reason: Mild Pain or Fever > 100.5 Last Admin: 10/07/22 10:05 Dose: 650 mg Hydrocodone Bitart/Acetaminophen (Hydrocodone/Apap 5-325mg 1 Each Tab) 1 each PO Q4H PRN PRN Reason: Pain Last Admin: 10/08/22 03:59 Dose: 1 each Albuterol/Ipratropium (Ipratropium-Albuterol 3 Ml Neb) 3 ml INHALATION RT-Q4H REPLACED BY [facility] Last Admin: 10/11/22 08:30 Dose: 3 ml Amiodarone HCl (Amiodarone 200 Mg Tab) 400 mg PO BID REPLACED BY [facility] Artificial Tears (Artificial Tears-Hypromellose Drops 15 Ml Btl) 2 drops BOTH EYES Q4HR REPLACED BY [facility] Last Admin: 10/11/22 09:03 Dose: 2 drops Atorvastatin Calcium (Atorvastatin 40 Mg Tab) 40 mg PO HS REPLACED BY [facility] Last Admin: 10/10/22 20:38 Dose: 40 mg Budesonide (Budesonide 1 Mg/2 Ml Nebu) 1 mg INHALATION RT-BID REPLACED BY [facility] Last Admin: 10/11/22 08:30 Dose: 1 mg Chlorhexidine Gluconate (Chlorhexidine Gluconate 15 Ml Cup) 15 ml MUCOUS MEM BID REPLACED BY [facility] Last Admin: 10/11/22 09:03 Dose: 15 ml Citalopram Hydrobromide (Citalopram Hydrobromide 20 Mg Tab) 40 mg PO DAILY REPLACED BY [facility] Last Admin: 10/11/22 09:03 Dose: 40 mg Cyclobenzaprine HCl (Cyclobenzaprine 10 Mg Tab) 10 mg PO TID PRN PRN Reason: Muscle Pain Dextrose/Water (Dextrose 50% Syringe 50 Ml) 25 ml IVP PER PROTOCOL PRN; Protocol PRN Reason: Hypoglycemia Dextrose/Water (Dextrose 50% Syringe 50 Ml) 50 ml IVP PER PROTOCOL PRN; Protocol PRN Reason: Hypoglycemia Dicyclomine HCl (Dicyclomine 10 Mg Cap) 10 mg PO TID REPLACED BY [facility] Last Admin: 10/11/22 09:04 Dose: 10 mg Enoxaparin Sodium (Enoxaparin 40 Mg/0.4 Ml Syringe) 40 mg SQ DAILY REPLACED BY [facility] Last Admin: 10/11/22 09:02 Dose: 40 mg Ferrous Sulfate (Ferrous Sulfate Oral Elixir 300 Mg/5 Ml Cup) 300 mg PO BID REPLACED BY [facility] Last Admin: 10/11/22 09:02 Dose: 300 mg Formoterol Fumarate (Formoterol Fumarate 20 Mcg/2 Ml Nebu) 20 mcg INHALATION RT-BID [facility] Last Admin: 10/11/22 08:30 Dose: 20 mcg Guaifenesin (Guaifenesin Syrup 100mg/5ml 200 Mg/10 Ml Cup) 400 mg PO Q4H [facility] Last Admin: 10/11/22 09:02 Dose: 400 mg Hydromorphone HCl (Hydromorphone 0.5 Mg/0.5 Ml Syringe) 0.5 mg IVP Q3HR PRN PRN Reason: Pain Last Admin: 10/11/22 07:14 Dose: 0.5 mg Propofol 1,000 mg/ IV Solution 100 mls @ 10.035 mls/hr IV .Q9H58M [facility]; Protocol Last Admin: 10/11/22 03:06 Dose: 50 mcg/kg/min, 33.45 mls/hr Clevidipine 25 mg/ IV Solution 50 mls @ 2 mls/hr IV .Q24H [facility]; Protocol Last Titration: 10/11/22 04:28 Dose: 0 mg/hr, 0 mls/hr Cisatracurium Besylate 200 mg/ (Sodium Chloride) 200 mls @ 6.69 mls/hr IV .Q24H [facility]; Protocol Last Titration: 10/11/22 09:05 Dose: 1 mcg/kg/min, 6.69 mls/hr Norepinephrine Bitartrate 8 mg (/ Sodium Chloride) 258 mls @ 6.473 mls/hr IV .Q24H [facility]; Protocol Last Admin: 10/10/22 17:35 Dose: Not Given Ampicillin Sodium/Sulbactam (Sodium 3 gm/ Sodium Chloride) 100 mls @ 200 mls/hr IVPB Q8HR [facility] Last Admin: 10/11/22 08:55 Dose: 200 mls/hr Amiodarone HCl 360 mg/ (Dextrose/Water) 200 mls @ 33.333 mls/hr IV .Q6H ONE; Protocol Stop: 10/11/22 12:44 Last Admin: 10/11/22 06:56 Dose: 1 mg/min, 33.333 mls/hr Amiodarone HCl 450 mg/ (Dextrose/Water) 250 mls @ 16.667 mls/hr IV .Q15H [facility]; Protocol Stop: 10/12/22 06:59 Insulin Human Regular 100 unit (/ Sodium Chloride) 100 mls @ 0 mls/hr IV .Q0M REPLACED BY [facility]; Protocol Last Admin: 10/11/22 11:00 Dose: 3 units/hr, 3 mls/hr Levothyroxine Sodium (Levothyroxine 137 Mcg Tab) 137 mcg PO DAILY@0630 REPLACED BY [facility] Last Admin: 10/11/22 06:20 Dose: 137 mcg Loratadine (Loratadine 10 Mg Tab) 10 mg PO [facility] Last Admin: 10/10/22 20:38 Dose: 10 mg Methylprednisolone Sodium Succinate (Methylprednisolone Sod Succi 125 Mg/2 Ml Vial) 60 mg IV Q6HR REPLACED BY [facility] Metoprolol Tartrate (Metoprolol Tartrate 25 Mg Tab) 37.5 mg PO DAILY REPLACED BY [facility] Last Admin: 10/11/22 09:04 Dose: 37.5 mg Miscellaneous Information (Potassium Replacement Protocol 1 Each Misc) 1 each MISCELLANE DAILY PRN PRN Reason: Per Protocol Miscellaneous Information (Magnesium Replacement Protocol 1 Each Misc) 1 each MISCELLANE DAILY PRN; Protocol PRN Reason: Per Protocol Miscellaneous Information (Phosphorus Replacement Protoco 1 Each Misc) 1 each MISCELLANE DAILY PRN; Protocol PRN Reason: Per Protocol Naloxone HCl (Naloxone 0.4 Mg/Ml 1 Ml Vial) 0.2 mg IV Q2M PRN PRN Reason: Opioid Reversal Dulaglutide [ Trulicity] 0.75 Mg/0 .5 Ml Each 0.75 mg SQ MATA REPLACED BY [facility] Last Admin: 10/10/22 11:38 Dose: Not Given Ondansetron HCl (Ondansetron 4 Mg/2 Ml Vial) 4 mg IVP Q8HR PRN PRN Reason: Nausea And Vomiting Oseltamivir Phosphate (Oseltamivir 60 Mg/10 Ml Oral Syringe) 30 mg PO Q12HR REPLACED BY [facility]; Protocol Stop: 10/13/22 21:01 Last Admin: 10/11/22 09:02 Dose: 30 mg Pantoprazole Sodium (Pantoprazole 40 Mg/10 Ml Vial) 40 mg IVP DAILY REPLACED BY [facility] Last Admin: 10/11/22 09:23 Dose: 40 mg Quetiapine Fumarate (Quetiapine 100 Mg Tab) 100 mg PO [facility] Last Admin: 10/10/22 21:17 Dose: 100 mg On examination: VITAL SIGNS: Afebrile, 78, 26, 147/46, 89% on the ventilator GENERAL APPEARANCE: in bed, intubated, ET tube HEENT: Normal external appearance of nose and ear. Oral cavity dry EYES: Pupils equal. Conjunctiva normal. NECK: JVD not raised. Mass not palpable. RESPIRATORY: Respiratory effort increased. Lungs breath sounds, wheezing, crackles CARDIOVASCULAR: First and second sounds normal. No edema. ABDOMEN: Soft. Liver and spleen not palpable. No tenderness. No mass palpable. PSYCHIATRY: Sedated INVESTIGATIONS, reviewed in the clinical context: 10/11/2022: White count 18 with benign 0.5 platelets 50 potassium 5.5-93 creatinine 1.26 10/10/2022: White count 7.1 hemoglobin 9.6 platelets 52 potassium 4.9 creatinine 1.11 Blood culture: MSSA Bronchial culture: MSSA 10/09/2022: White count 13.6 and globin 10.4. DVT 7 potassium 5.1 creatinine 1.01 ABG: PH 7.28 pCO2 55 pO2 71 10/08/2022: White count 3.9 hemoglobin 9.3 platelets 53 potassium 4.6 creatinine 0.68 10/07/2022: WBC 5.8 hemoglobin 9.6 platelets 584 0.5 BUN 26 creatinine 0.05 Bronchoscopy: Essentially unremarkable 10/06/2022: PH 7.3 pO2 77 FiO2 100%. Chest x-ray film. Bilateral infiltrate Sodium 136 potassium 3.8 creatinine 0.7 Chest x-ray film personally reviewed by me-scattered fine infiltrates Influenza A positive Assessment and plan: -Acute severe Influenza a pneumonitis -Acute severe COPD exacerbation in an ex-smoker: Slow to respond DuoNeb to every 4, nebulized Pulmicort and Perforomist, IV Solu-Medrol -secondary bacterial pneumonia with sepsis with lavage cultures and blood cultures positive for MSSA, IV Unasyn -Sepsis with positive blood cultures MSSA IV Unasyn -Troponinemia, type II MA. -Acute hypoxic respiratory failure secondary to COPD and influenza A: Not improving Patient intubated [October 06]. Ventilator support -Chronic normocytic anemia -Hyperkalemia from kidney disease Lokelma -Chronic ITP Follow platelets -Essential Hypertension Lopressor -Lactic acidosis, improved -Nonalcoholic steatohepatitis -Status post aortic valve replacement history -Hyperlipidemia Lipitor -Hypothyroid Synthroid 137 g -Diabetes mellitus type 2 Continue Trulicity. Follow Accu-Cheks with sliding scale -Obesity BMI 36.3 Weight loss measures -Full code Intubated. ICU. IV Unasyn IV Nimbex. IV propofol. IV Solu-Medrol. IV amiodarone and IV insulin. FMS in place.
[2022-10-11 12:06] LABS: Glucose,Whole Blood 316 mg/dL (70-110)
[2022-10-11] MEDS: CLEVIDIPINE BUTYRATE 25 MG in EMPTY BAG 1 BAG IV SCH ×2 (12:52→20:19)
[2022-10-11] MEDS: methylPREDNISolone SOD SUCCI 125 MG/2 ML VIAL IV SCH ×2 (12:58→17:29)
--- NOTE | 2022-10-11 13:01 | P.PN ---
Subjective Progress Note Date: 10/11/22 Principal diagnosis: Acute hypoxic respiratory failure secondary to multifocal MSSA pneumonia and influenza infection. With MSSA bacteremia 10/10/2022, the patient remains sedation since and paralyzed. We will try to get the patient off paralytics yesterday and she failed and the patient became asynchronous with a mechanical ventilator and she was desaturating. Based on that, Nimbex was restarted and currently Nimbex is running at 1 mcg/kg/m and the patient is also on propofol running at 50 mcg/kg/m and this is day original doses from yesterday. Meanwhile, the patient remains intubated on a mechanical ventilator. On today's evaluation, she is still on assist-control mode at a rate of 26 with a tidal volume of 400 and FiO2 of 60% with a PEEP of 12. Peak airway pressure is 29. Blood gas from today shows a pH of 7.29 with a pCO2 of 53 and pO2 of 68. Noted bronchoscopy was done. The bronchial lavage showed influenza A and staph aureus which was essentially and MSSA. The patient remains on bronchodilators. The patient remains on cefepime and vancomycin will be discontinued today. The patient remains on Tamiflu. The patient remains on IV Solu-Medrol. Repeat chest x-ray shows stable bilateral pulmonary infiltrates although comparing it to the earlier chest x-ray, there is ongoing slow improvement of the chest x-ray findings. The patient's blood work shows a WBC count of 7.1, hemoglobin of 9.6 and a platelet count of 52. Sodium is at 140 with a potassium level of 4.9. BUN is at 70 with a creatinine of 1.1. Glucose at 189. She is receiving enteral feeding for nutritional support and she is currently on vital high-protein at the rate of 39 mL an hour. She is tolerating her enteral feeding. Fluid balance has been positive and the patient is receiving a doses. Overall fluid balance for yesterday was 1.7 L positive. Her echocardiogram showing preserved LV function, moderate mitral regurgitation. She is afebrile. She is hemodynamically stable. She is on no pressors for now. On a separate note, the patient developed some diarrhea. Few medical management system was applied. Stool was negative for C. diff. regards to blood sugar control, she was having elevated blood sugars and ultimately she was switched an insulin drip which is running at 8.5 units an hour. Reevaluated today on 10/21/2022, patient remains in the ICU, intubated and mechanically ventilated. He is on assist control rate of 26 double volume of 400 FiO2 60% and PEEP of 12. ABG showed a pO2 of 69 pCO2 52 pH of 7.28, no changes were made in her ventilator settings. Patient remains on Nimbex, remains on propofol at 50 mcg/kg/m, she is also on amiodarone at 1 mg/m, Nimbex was positive earlier today but considering her marginal ABG, I recommended that she goes back on Nimbex. Patient is on cycle hpf 39 mL per hour which is goal, she was in atrial fibrillation earlier and she was started on amiodarone, hence cardiology was consulted. Patient was placed back on a higher dose of Solu- Medrol 60 mg every 6, and we'll start the patient back on insulin infusion for significantly elevated blood sugars overall the patient is not doing great, she clearly has worsening pulmonary status, she has elevated plateau pressures consistent with ARDS, and her ABG is marginal at best. She is clearly nowhere near weaning at this point WBC count is 8 hemoglobin is 9.5 basic metabolic profile is normal potassium is a bit elevated at 5.6, BUN is 93 creatinine 1.26. Chest x-ray showed cardiomegaly and bilateral multifocal infiltrates. Echocardiogram showed good LV function, ejection fraction of 55% moderate mitral regurgitation was noted and moderate aortic stenosis was also noted. Cardiology was consulted on this patient today remains on Tamiflu. Remains on Unasyn. Objective - Vital Signs Vital signs: Vital Signs Temp 99.5 F 10/11/22 12:00 Pulse 67 10/11/22 12:20 Resp 20 10/11/22 12:00 BP 136/48 10/11/22 12:00 Pulse Ox 89 L 10/11/22 12:00 FiO2 60 10/11/22 12:05 Intake & Output 10/10/22 10/11/22 10/11/22 18:59 06:59 18:59 Intake Total 1349.706 5454.178 454.791 Output Total 830 1350 400 Balance 403.592 48.178 54.791 Weight 125.1 kg 125.1 kg Intake: IV 312 412 130 .9NS 240 240 100 0.9NS Pressure Bag 72 72 30 Ampicillin-Sulbactam 3 gm 100 In Sodium Chloride 0.9% 100 ml @ 200 mls/hr IVPB Q8HR [facility] Rx#:[id number] Intake, IV Titration 363.592 428.178 129.791 Amount Ampicillin-Sulbactam 3 gm 100 In Sodium Chloride 0.9% 100 ml @ 200 mls/hr IVPB Q8HR [facility] Rx#:[id number] Cisatracurium 200 mg In 93.438 65.562 26.091 Sodium Chloride 0.9% 180 ml @ 1 MCG/KG/MIN 6.69 mls/hr IV .Q24H [facility] Rx#: [id number] Clevidipine Butyrate 25 0.033 mg In Empty Bag 1 bag @ 1 MG/HR 2 mls/hr IV .Q24H [facility] Rx#:[id number] Insulin Regular 100 unit 70.154 In Sodium Chloride 0.9% 100 ml @ Titrate IV .Q0M [facility] Rx#:[id number] Insulin Regular 100 unit 3.7 In Sodium Chloride 0.9% 100 ml @ Titrate IV .Q0M [facility] Rx#:[id number] propofoL 1,000 mg In 200 362.583 Empty Bag 1 bag @ 15 MCG/ KG/MIN 10.035 mls/hr IV . Q9H58M [facility] Rx#:[id number] Tube Feeding 468 468 195 Other 90 90 Output: Urine 830 950 400 Stool 400 Other: Voiding Method Indwelling Catheter Indwelling Catheter ABP, PAP, CO, CI - Last Documented Arterial Blood Pressure 154/53 - Exam Physical Exam: Revealed a 61-year-old female, obese, intubated, mechanically ventilated, sedated and on Nimbex. Head: Atraumatic, normocephalic. HEENT:[Neck is supple.] [No neck masses.] [No thyromegaly.] [No JVD.] Chest: [Diffuse rhonchi and wheezes noted bilaterally. Cardiac Exam: [Normal S1 and S2, no S3 gallop, 2/6 systolic murmur thought the precordium. Abdomen: [Obese, Soft, nontender, no megaly, no rebound, no guarding, normal bowel sounds.] Extremities: [No clubbing, 1+ bipedal edema, no cyanosis.] Neurological Exam: Not assessed, patient is sedated and paralyzed. Psychiatric: Could not assess. Skin: No rashes. - Labs CBC & Chem 7: 10/11/22 04:50 10/11/22 12:03 Labs: Abnormal Lab Results - Last 24 Hours (Table) 10/10/22 10/10/22 10/10/22 Range/Units 05:35 14:54 17:08 RBC (3.80-5.40) m/uL Hgb (11.4-16.0) gm/dL Hct (34.0-46.0) % Plt Count (150-450) k/uL Lymphocytes # (1.0-4.8) k/uL ABG pH (7.35-7.45) ABG pCO2 (35-45) mmHg ABG pO2 (83-108) mmHg ABG Total CO2 (19-24) mmol/L ABG O2 Saturation (94-97) % Potassium (3.5-5.1) mmol/L Chloride (98-107) mmol/L BUN (7-17) mg/dL Creatinine (0.52-1.04) mg/dL Glucose (74-99) mg/dL POC Glucose (mg/dL) 144 H 137 H (70-110) mg/dL Hemoglobin A1c 6.2 H (0.0-6.0) % Calcium (8.4-10.2) mg/dL Magnesium (1.6-2.3) mg/dL 10/10/22 10/10/22 10/11/22 Range/Units 18:15 20:18 00:00 RBC (3.80-5.40) m/uL Hgb (11.4-16.0) gm/dL Hct (34.0-46.0) % Plt Count (150-450) k/uL Lymphocytes # (1.0-4.8) k/uL ABG pH (7.35-7.45) ABG pCO2 (35-45) mmHg ABG pO2 (83-108) mmHg ABG Total CO2 (19-24) mmol/L ABG O2 Saturation (94-97) % Potassium (3.5-5.1) mmol/L Chloride (98-107) mmol/L BUN (7-17) mg/dL Creatinine (0.52-1.04) mg/dL Glucose (74-99) mg/dL POC Glucose (mg/dL) 160 H 231 H 270 H (70-110) mg/dL Hemoglobin A1c (0.0-6.0) % Calcium (8.4-10.2) mg/dL Magnesium (1.6-2.3) mg/dL 10/11/22 10/11/22 10/11/22 Range/Units 04:03 04:50 04:50 RBC 3.06 L (3.80-5.40) m/uL Hgb 9.5 L (11.4-16.0) gm/dL Hct 29.9 L (34.0-46.0) % Plt Count 50 L (150-450) k/uL Lymphocytes # 0.1 L (1.0-4.8) k/uL ABG pH (7.35-7.45) ABG pCO2 (35-45) mmHg ABG pO2 (83-108) mmHg ABG Total CO2 (19-24) mmol/L ABG O2 Saturation (94-97) % Potassium 5.5 H (3.5-5.1) mmol/L Chloride 112 H (98-107) mmol/L BUN 93 H (7-17) mg/dL Creatinine 1.26 H (0.52-1.04) mg/dL Glucose 267 H (74-99) mg/dL POC Glucose (mg/dL) 258 H (70-110) mg/dL Hemoglobin A1c (0.0-6.0) % Calcium 6.9 L (8.4-10.2) mg/dL Magnesium (1.6-2.3) mg/dL 10/11/22 10/11/22 10/11/22 Range/Units 04:50 05:12 08:35 RBC (3.80-5.40) m/uL Hgb (11.4-16.0) gm/dL Hct (34.0-46.0) % Plt Count (150-450) k/uL Lymphocytes # (1.0-4.8) k/uL ABG pH 7.28 L (7.35-7.45) ABG pCO2 52 H (35-45) mmHg ABG pO2 69 L (83-108) mmHg ABG Total CO2 27 H (19-24) mmol/L ABG O2 Saturation 92.3 L (94-97) % Potassium (3.5-5.1) mmol/L Chloride (98-107) mmol/L BUN (7-17) mg/dL Creatinine (0.52-1.04) mg/dL Glucose (74-99) mg/dL POC Glucose (mg/dL) 276 H (70-110) mg/dL Hemoglobin A1c (0.0-6.0) % Calcium (8.4-10.2) mg/dL Magnesium 3.4 H (1.6-2.3) mg/dL 10/11/22 10/11/22 10/11/22 Range/Units 10:50 12:03 12:03 RBC (3.80-5.40) m/uL Hgb (11.4-16.0) gm/dL Hct (34.0-46.0) % Plt Count (150-450) k/uL Lymphocytes # (1.0-4.8) k/uL ABG pH (7.35-7.45) ABG pCO2 (35-45) mmHg ABG pO2 (83-108) mmHg ABG Total CO2 (19-24) mmol/L ABG O2 Saturation (94-97) % Potassium 5.6 H (3.5-5.1) mmol/L Chloride (98-107) mmol/L BUN (7-17) mg/dL Creatinine (0.52-1.04) mg/dL Glucose (74-99) mg/dL POC Glucose (mg/dL) 303 H 316 H (70-110) mg/dL Hemoglobin A1c (0.0-6.0) % Calcium (8.4-10.2) mg/dL Magnesium (1.6-2.3) mg/dL Assessment and Plan Assessment: Impression: Acute hypoxic and reported failure secondary to multifocal pneumonia, MSSA pneumonia, and influenza A infection. Staph aureus sepsis/MSSA sepsis and bacteremia ARDS, patient is requiring relatively high FiO2 and high PEEP. Paroxysmal atrial fibrillation. History of valvular heart disease including aortic valve disease with moderate aortic valve stenosis, and moderate mitral valve regurgitation history of aortic valve replacement. Type 2 diabetes. GERD without esophagitis. Dyslipidemia. Hypertension. History of obstructive sleep apnea syndrome. History of hypothyroidism. Chronic thrombocytopenia and previous history of ITP. Recommendation: Continue ventilatory support. Continue relatively high FiO2 and high PEEP. Continue max and propofol. Gentle diuresis. Monitor renal status. Cardiology to see her on consultation for atrial fibrillation and valvular heart disease Continue Solu-Medrol 60 mg IV push every 6 hours. Resume insulin drip. Continue Tamiflu. Continue Unasyn. Continue to monitor blood cultures and make sure blood cultures become negative with treatment otherwise the patient will need to be evaluated for possible endocarditis. Nutritional support/enteral feeding. GI and DVT prophylaxis. We'll continue to follow. Prognosis is extremely guarded. Critical care time is over 30 minutes Time with Patient: Greater than 30
[2022-10-11 13:13] LABS: Glucose,Whole Blood 282 mg/dL (70-110)
[2022-10-11] MEDS ORDERED: FUROSEMIDE 10 MG/ML 4 ML VIAL IV STA (13:14)
[2022-10-11] MEDS: AMIODARONE 450 MG in DEXTROSE 5% IN WATER 250 ML IV SCH ×2 (13:17)
[2022-10-11] MEDS: DEXTROSE 5% IN WATER 1,000 ML with SODIUM BICARB (1 MEQ/ML) 150 ML IV SCH (14:00)
--- NOTE | 2022-10-11 14:05 | CONS ---
CONSULTATION HISTORY OF PRESENT ILLNESS: This is a 61-year-old lady, who is admitted to hospital with influenza and subsequently developed respiratory failure and intubated on vent. I was consulted today because of paroxysmal episodes of atrial fibrillation. The patient had an echocardiogram on the that showed normal LV function. At the time of my evaluation, she is on IV amiodarone and had converted to sinus rhythm. I am going to switch her to oral amiodarone in the morning. The patient's history is significant for COPD, dyslipidemia, and diabetes. MEDICATIONS: Medications at home included, 1. Synthroid. 2. Celexa. 3. Trulicity. 4. Lopressor. 5. Flexeril. 6. Zyrtec. 7. Lipitor. 8. ProAir. ALLERGIES: She is allergic to IV dye and adhesive tape. FAMILY HISTORY: I am unable to obtain from the patient. SOCIAL HISTORY: I am unable to obtain from the patient. REVIEW OF SYSTEMS: I am unable to obtain from the patient. PHYSICAL EXAMINATION: VITAL SIGNS: Heart rate is 80 beats per minute, blood pressure is 138/36, respiratory rate is 18. CHEST: Reveals diminished air entry bilaterally. HEART: Reveals first and second heart sounds. No gallop. No murmur. ABDOMEN: Soft. EXTREMITIES: Did not reveal any edema. LABORATORY DATA: Labs showed that the hemoglobin is 9.5, potassium is 5.5, BUN is 93, creatinine is 1.2, platelet count is 50. ASSESSMENT: 1. Paroxysmal atrial fibrillation. 2. Vent requiring respiratory failure secondary to flu. PLAN: I will continue her on the amiodarone and if necessary, use Cardizem as needed. MMODL / IJN: [id number] /
[2022-10-11 14:17] LABS: Glucose,Whole Blood 273 mg/dL (70-110)
[2022-10-11 15:13] LABS: Glucose,Whole Blood 244 mg/dL (70-110)
[2022-10-11 16:12] LABS: Glucose,Whole Blood 224 mg/dL (70-110)
[2022-10-11 17:36] LABS: Glucose,Whole Blood 270 mg/dL (70-110)
[2022-10-11 18:52] LABS: Glucose,Whole Blood 218 mg/dL (70-110)
[2022-10-11] MEDS: NOREPINEPHRINE 8 MG in SODIUM CHLORIDE 0.9% 250 ML IV SCH (19:48)
[2022-10-11 20:00] LABS: Glucose,Whole Blood 238 mg/dL (70-110)
[2022-10-11] MEDS: LORATADINE 10 MG TAB PO SCH (20:59)
[2022-10-11] MEDS: ATORVASTATIN 40 MG TAB PO SCH (20:59)
[2022-10-11] MEDS: QUEtiapine 100 MG TAB PO SCH (21:00)
[2022-10-11 21:09] LABS: Glucose,Whole Blood 218 mg/dL (70-110)
[2022-10-11 22:05] LABS: Glucose,Whole Blood 218 mg/dL (70-110)
[2022-10-11 23:03] LABS: Glucose,Whole Blood 204 mg/dL (70-110)
[2022-10-12 00:01] LABS: Glucose,Whole Blood 192 mg/dL (70-110)
[2022-10-12] MEDS: ACETAMINOPHEN TAB 325 MG TAB PO PRN ×2 (00:05→21:17)
[2022-10-12] MEDS: methylPREDNISolone SOD SUCCI 125 MG/2 ML VIAL IV SCH ×4 (00:05→18:32)
[2022-10-12] MEDS: guaiFENesin SYRUP 100MG/5ML 200 MG/10 ML CUP PO SCH ×6 (00:05→21:19)
[2022-10-12] MEDS: AMPICILLIN-SULBACTAM 3 GM in SODIUM CHLORIDE 0.9% 100 ML IVPB SCH ×4 (00:06→18:33)
[2022-10-12] MEDS: ARTIFICIAL TEARS-HYPROMELLOSE DROPS 15 ML BTL BOTH EYES SCH ×6 (00:06→21:20)
[2022-10-12 00:58] LABS: Glucose,Whole Blood 187 mg/dL (70-110)
[2022-10-12] MEDS: CISATRACURIUM 200 MG in SODIUM CHLORIDE 0.9% 180 ML IV SCH ×2 (00:59→03:33)
[2022-10-12 02:00] LABS: Glucose,Whole Blood 162 mg/dL (70-110)
[2022-10-12 02:57] LABS: Glucose,Whole Blood 149 mg/dL (70-110)
[2022-10-12] MEDS: IPRATROPIUM-ALBUTEROL 3 ML NEB INHALATION SCH ×6 (03:12→23:20)
[2022-10-12] MEDS: INSULIN REGULAR 100 UNIT in SODIUM CHLORIDE 0.9% 100 ML IV SCH ×2 (03:34→16:05)
[2022-10-12 03:56] LABS: Glucose,Whole Blood 152 mg/dL (70-110)
[2022-10-12] MEDS: AMIODARONE 450 MG in DEXTROSE 5% IN WATER 250 ML IV SCH ×2 (04:28)
[2022-10-12 04:53] LABS: Glucose,Whole Blood 122 mg/dL (70-110)
[2022-10-12 05:05] LABS: Basophils % (A) 0 %; Eosinophils % (A) 0 %; Hypochromasia Marked; Lymphocytes # (A) 0.2 k/uL (1.0-4.8); Lymphocytes % (A) 2 %; MCH 31.4 pg (25.0-35.0); MCHC 32.3 g/dL (31.0-37.0); MCV 97.2 fL (80.0-100.0); Mean Platelet Volume 11.3; Monocytes # (A) 0.4 k/uL (0-1.0); Monocytes % (A) 4 %; Neutrophils # (A) 9.3 k/uL (1.3-7.7); Neutrophils % (A) 94 %; Poikilocytosis Slight; RBC 3.19 m/uL (3.80-5.40); RDW 14.6 % (11.5-15.5)
[2022-10-12 05:11] LABS: Platelet Count 59 k/uL (150-450)
[2022-10-12 05:17] LABS: ABG Base Excess 0.9 mmol/L; ABG HCO3 28 mmol/L (21-25); ABG PCO2 61 mmHg (35-45); ABG PH 7.27 (7.35-7.45); ABG PO2 65 mmHg (83-108); ABG TCO2 30 mmol/L (19-24)
[2022-10-12 05:19] LABS: Calcium 6.9 mg/dL (8.4-10.2); Potassium 5.6 mmol/L (3.5-5.1)
[2022-10-12 05:24] LABS: Allen Test Performed? no
[2022-10-12 05:53] LABS: Glucose,Whole Blood 130 mg/dL (70-110)
[2022-10-12] MEDS: LEVOTHYROXINE 137 MCG TAB PO SCH (05:53)
[2022-10-12 06:55] LABS: Glucose,Whole Blood 184 mg/dL (70-110)
[2022-10-12] MEDS: METOPROLOL TARTRATE 25 MG TAB PO SCH (08:07)
[2022-10-12] MEDS: CHLORHEXIDINE GLUCONATE 15 ML CUP MUCOUS MEM SCH ×2 (08:07→21:19)
[2022-10-12] MEDS: AMIODARONE 200 MG TAB PO SCH ×2 (08:07→21:17)
[2022-10-12] MEDS: ENOXAPARIN 40 MG/0.4 ML SYRINGE SQ SCH (08:07)
[2022-10-12] MEDS: DICYCLOMINE 10 MG CAP PO SCH ×3 (08:07→21:17)
[2022-10-12] MEDS: CITALOPRAM HYDROBROMIDE 20 MG TAB PO SCH (08:07)
[2022-10-12] MEDS: PANTOPRAZOLE 40 MG/10 ML VIAL IVP SCH (08:09)
[2022-10-12] MEDS: OSELTAMIVIR 60 MG/10 ML ORAL SYRINGE PO SCH ×2 (08:09→21:41)
[2022-10-12] MEDS: FERROUS SULFATE ORAL ELIXIR 300 MG/5 ML CUP PO SCH ×2 (08:09→21:19)
[2022-10-12 08:16] LABS: Glucose,Whole Blood 164 mg/dL (70-110)
--- NOTE | 2022-10-12 08:26 | XR ---
EXAMINATION TYPE: XR chest 1V portable DATE OF EXAM: 10/12/2022 Comparison: 10/11/2022 Clinical History: 61-year-old female Tube placement Findings: ET tube tip at the level of the medial clavicular heads. NG tube courses below the diaphragm. Left CV C tip at the cavoatrial junction. Median sternotomy wires with prosthetic aortic valve. Heart upper l imits of normal in size. Bilateral diffuse patchy opacities. Suspect trace pleural effusions. Impression: Multifocal bilateral patchy airspace disease persists without significant change.
[2022-10-12] MEDS: FORMOTEROL FUMARATE 20 MCG/2 ML NEBU INHALATION SCH ×2 (08:43→19:24)
[2022-10-12] MEDS: BUDESONIDE 1 MG/2 ML NEBU INHALATION SCH ×2 (08:43→19:24)
[2022-10-12 09:11] LABS: Glucose,Whole Blood 176 mg/dL (70-110)
[2022-10-12 10:07] LABS: Glucose,Whole Blood 182 mg/dL (70-110)
[2022-10-12 11:00] LABS: Glucose,Whole Blood 177 mg/dL (70-110)
--- NOTE | 2022-10-12 12:02 | P.PN ---
Subjective Progress Note Date: 10/12/22 Principal diagnosis: Acute hypoxic respiratory failure secondary to multifocal MSSA pneumonia and influenza infection. With MSSA bacteremia 10/10/2022, the patient remains sedation since and paralyzed. We will try to get the patient off paralytics yesterday and she failed and the patient became asynchronous with a mechanical ventilator and she was desaturating. Based on that, Nimbex was restarted and currently Nimbex is running at 1 mcg/kg/m and the patient is also on propofol running at 50 mcg/kg/m and this is day original doses from yesterday. Meanwhile, the patient remains intubated on a mechanical ventilator. On today's evaluation, she is still on assist-control mode at a rate of 26 with a tidal volume of 400 and FiO2 of 60% with a PEEP of 12. Peak airway pressure is 29. Blood gas from today shows a pH of 7.29 with a pCO2 of 53 and pO2 of 68. Noted bronchoscopy was done. The bronchial lavage showed influenza A and staph aureus which was essentially and MSSA. The patient remains on bronchodilators. The patient remains on cefepime and vancomycin will be discontinued today. The patient remains on Tamiflu. The patient remains on IV Solu-Medrol. Repeat chest x-ray shows stable bilateral pulmonary infiltrates although comparing it to the earlier chest x-ray, there is ongoing slow improvement of the chest x-ray findings. The patient's blood work shows a WBC count of 7.1, hemoglobin of 9.6 and a platelet count of 52. Sodium is at 140 with a potassium level of 4.9. BUN is at 70 with a creatinine of 1.1. Glucose at 189. She is receiving enteral feeding for nutritional support and she is currently on vital high-protein at the rate of 39 mL an hour. She is tolerating her enteral feeding. Fluid balance has been positive and the patient is receiving a doses. Overall fluid balance for yesterday was 1.7 L positive. Her echocardiogram showing preserved LV function, moderate mitral regurgitation. She is afebrile. She is hemodynamically stable. She is on no pressors for now. On a separate note, the patient developed some diarrhea. Few medical management system was applied. Stool was negative for C. diff. regards to blood sugar control, she was having elevated blood sugars and ultimately she was switched an insulin drip which is running at 8.5 units an hour. Reevaluated today on 10/11/2022, patient remains in the ICU, intubated and mechanically ventilated. He is on assist control rate of 26 double volume of 400 FiO2 60% and PEEP of 12. ABG showed a pO2 of 69 pCO2 52 pH of 7.28, no changes were made in her ventilator settings. Patient remains on Nimbex, remains on propofol at 50 mcg/kg/m, she is also on amiodarone at 1 mg/m, Nimbex was positive earlier today but considering her marginal ABG, I recommended that she goes back on Nimbex. Patient is on cycle hpf 39 mL per hour which is goal, she was in atrial fibrillation earlier and she was started on amiodarone, hence cardiology was consulted. Patient was placed back on a higher dose of Solu- Medrol 60 mg every 6, and we'll start the patient back on insulin infusion for significantly elevated blood sugars overall the patient is not doing great, she clearly has worsening pulmonary status, she has elevated plateau pressures consistent with ARDS, and her ABG is marginal at best. She is clearly nowhere near weaning at this point WBC count is 8 hemoglobin is 9.5 basic metabolic profile is normal potassium is a bit elevated at 5.6, BUN is 93 creatinine 1.26. Chest x-ray showed cardiomegaly and bilateral multifocal infiltrates. Echocardiogram showed good LV function, ejection fraction of 55% moderate mitral regurgitation was noted and moderate aortic stenosis was also noted. Cardiology was consulted on this patient today remains on Tamiflu. Remains on Unasyn. Patient was reevaluated today on 10/12/2022, remains in the ICU, sedated and paralyzed. Remains on relatively high PEEP and high FiO2. Had to go up on the PEEP to 14 and FiO2 is 70% today. ABG showed a pO2 65, pCO2 61 pH of 7.27. She is on assist control rate of 26 double volume 400 FiO2 70% and PEEP of 14. Patient is on propofol at 50 mcg/kg/m, she is on Nimbex at 20 mcg/kg/m, she is on insulin 9 units an hour, bicarb drip at 50 mL per hour, clevidipine 2 mg per hour and she is on vital hpf 39 mL per hour. Repeat blood cultures were ordered today, discussed her condition with family at bedside/daughter, and made aware of the poor prognosis, family may consider comfort care measures but not yet, but willing to go with DO NOT RESUSCITATE CODE STATUS considering her multiple issues and poor prognosis. WBC count today is 10 hemoglobin is 10. Basic metabolic profile is normal except for potassium of 5.6, BUN is up to 117 creatinine is up to 1.58. Last BNP level was 2520. Patient remains on diuretics. Chest x-ray continues show bilateral interstitial infiltrates./Mult ifocal patchy airspace disease persists without any significant change Objective - Vital Signs Vital signs: Vital Signs Temp 100.0 F H 10/12/22 08:00 Pulse 78 10/12/22 11:00 Resp 26 H 10/12/22 11:00 BP 148/51 10/12/22 08:00 Pulse Ox 88 L 10/12/22 11:00 FiO2 70 10/12/22 08:31 Intake & Output 10/11/22 10/12/22 10/12/22 18:59 06:59 18:59 Intake Total 4055.069 5990.859 631.933 Output Total 935 615 210 Balance 572.399 0248.859 421.933 Weight 125.1 kg 125.2 kg Intake: IV 352 908 344 .9NS 180 130 20 0.9NS Pressure Bag 72 78 24 Ampicillin-Sulbactam 3 gm 100 100 100 In Sodium Chloride 0.9% 100 ml @ 200 mls/hr IVPB Q8HR [facility] Rx#:[id number] Dextrose 5% in Water 1, 600 200 000 ml @ 50 mls/hr IV . Q23H [facility] with Sodium Bicarb (1 Meq/ml) 150 ml Rx#:[id number] Intake, IV Titration 343.849 888.859 101.933 Amount Amiodarone 450 mg In 250 Dextrose 5% in Water 250 ml @ 0.5 MG/MIN 16.667 mls/hr IV .Q15H [facility] Rx#: [id number] Ampicillin-Sulbactam 3 gm 100 In Sodium Chloride 0.9% 100 ml @ 200 mls/hr IVPB Q8HR [facility] Rx#:[id number] Cisatracurium 200 mg In 26.091 108.347 Sodium Chloride 0.9% 180 ml @ 1 MCG/KG/MIN 6.69 mls/hr IV .Q24H [facility] Rx#: [id number] Clevidipine Butyrate 25 9.167 1.933 mg In Empty Bag 1 bag @ 1 MG/HR 2 mls/hr IV .Q24H [facility] Rx#:[id number] Dextrose 5% in Water 1, 150 000 ml @ 50 mls/hr IV . Q23H [facility] with Sodium Bicarb (1 Meq/ml) 150 ml Rx#:[id number] Insulin Regular 100 unit 67.758 155.767 In Sodium Chloride 0.9% 100 ml @ Titrate IV .Q0M [facility] Rx#:[id number] propofoL 1,000 mg In 365.578 100 Empty Bag 1 bag @ 15 MCG/ KG/MIN 10.035 mls/hr IV . Q9H58M [facility] Rx#:[id number] Tube Feeding 468 468 156 Other 60 90 30 Output: Urine 935 615 210 Other: Voiding Method Indwelling Catheter Indwelling Catheter Indwelling Catheter ABP, PAP, CO, CI - Last Documented Arterial Blood Pressure 157/42 - Exam Physical Exam: Revealed a 61-year-old female, obese, intubated, mechanically ventilated, sedated and on Nimbex. Head: Atraumatic, normocephalic. HEENT:[Neck is supple.] [No neck masses.] [No thyromegaly.] [No JVD.] Chest: [Diffuse rhonchi and wheezes noted bilaterally. Cardiac Exam: [Normal S1 and S2, no S3 gallop, 2/6 systolic murmur thought the precordium. Abdomen: [Obese, Soft, nontender, no megaly, no rebound, no guarding, normal bowel sounds.] Extremities: [No clubbing, 2+ bipedal edema, no cyanosis.] Neurological Exam: Not assessed, patient is sedated and paralyzed. Psychiatric: Could not assess. Skin: No rashes. - Labs CBC & Chem 7: 10/12/22 04:50 10/12/22 04:50 Labs: Abnormal Lab Results - Last 24 Hours (Table) 10/07/22 10/11/22 10/11/22 Range/Units 11:52 12:03 12:03 RBC (3.80-5.40) m/uL Hgb (11.4-16.0) gm/dL Hct (34.0-46.0) % Plt Count (150-450) k/uL Neutrophils # (1.3-7.7) k/uL Lymphocytes # (1.0-4.8) k/uL ABG pH (7.35-7.45) ABG pCO2 (35-45) mmHg ABG pO2 (83-108) mmHg ABG HCO3 (21-25) mmol/L ABG Total CO2 (19-24) mmol/L ABG O2 Saturation (94-97) % Potassium 5.6 H (3.5-5.1) mmol/L Chloride (98-107) mmol/L BUN (7-17) mg/dL Creatinine (0.52-1.04) mg/dL Glucose (74-99) mg/dL POC Glucose (mg/dL) 316 H (70-110) mg/dL Calcium (8.4-10.2) mg/dL Viral Test See Below A 10/11/22 10/11/22 10/11/22 Range/Units 13:11 14:15 15:12 RBC (3.80-5.40) m/uL Hgb (11.4-16.0) gm/dL Hct (34.0-46.0) % Plt Count (150-450) k/uL Neutrophils # (1.3-7.7) k/uL Lymphocytes # (1.0-4.8) k/uL ABG pH (7.35-7.45) ABG pCO2 (35-45) mmHg ABG pO2 (83-108) mmHg ABG HCO3 (21-25) mmol/L ABG Total CO2 (19-24) mmol/L ABG O2 Saturation (94-97) % Potassium (3.5-5.1) mmol/L Chloride (98-107) mmol/L BUN (7-17) mg/dL Creatinine (0.52-1.04) mg/dL Glucose (74-99) mg/dL POC Glucose (mg/dL) 282 H 273 H 244 H (70-110) mg/dL Calcium (8.4-10.2) mg/dL Viral Test 10/11/22 10/11/22 10/11/22 Range/Units 16:11 17:34 17:35 RBC (3.80-5.40) m/uL Hgb (11.4-16.0) gm/dL Hct (34.0-46.0) % Plt Count (150-450) k/uL Neutrophils # (1.3-7.7) k/uL Lymphocytes # (1.0-4.8) k/uL ABG pH (7.35-7.45) ABG pCO2 (35-45) mmHg ABG pO2 (83-108) mmHg ABG HCO3 (21-25) mmol/L ABG Total CO2 (19-24) mmol/L ABG O2 Saturation (94-97) % Potassium 5.4 H (3.5-5.1) mmol/L Chloride (98-107) mmol/L BUN (7-17) mg/dL Creatinine (0.52-1.04) mg/dL Glucose (74-99) mg/dL POC Glucose (mg/dL) 224 H 270 H (70-110) mg/dL Calcium (8.4-10.2) mg/dL Viral Test 10/11/22 10/11/22 10/11/22 Range/Units 18:50 19:59 21:06 RBC (3.80-5.40) m/uL Hgb (11.4-16.0) gm/dL Hct (34.0-46.0) % Plt Count (150-450) k/uL Neutrophils # (1.3-7.7) k/uL Lymphocytes # (1.0-4.8) k/uL ABG pH (7.35-7.45) ABG pCO2 (35-45) mmHg ABG pO2 (83-108) mmHg ABG HCO3 (21-25) mmol/L ABG Total CO2 (19-24) mmol/L ABG O2 Saturation (94-97) % Potassium (3.5-5.1) mmol/L Chloride (98-107) mmol/L BUN (7-17) mg/dL Creatinine (0.52-1.04) mg/dL Glucose (74-99) mg/dL POC Glucose (mg/dL) 218 H 238 H 218 H (70-110) mg/dL Calcium (8.4-10.2) mg/dL Viral Test 10/11/22 10/11/22 10/12/22 Range/Units 22:02 23:01 00:00 RBC (3.80-5.40) m/uL Hgb (11.4-16.0) gm/dL Hct (34.0-46.0) % Plt Count (150-450) k/uL Neutrophils # (1.3-7.7) k/uL Lymphocytes # (1.0-4.8) k/uL ABG pH (7.35-7.45) ABG pCO2 (35-45) mmHg ABG pO2 (83-108) mmHg ABG HCO3 (21-25) mmol/L ABG Total CO2 (19-24) mmol/L ABG O2 Saturation (94-97) % Potassium (3.5-5.1) mmol/L Chloride (98-107) mmol/L BUN (7-17) mg/dL Creatinine (0.52-1.04) mg/dL Glucose (74-99) mg/dL POC Glucose (mg/dL) 218 H 204 H 192 H (70-110) mg/dL Calcium (8.4-10.2) mg/dL Viral Test 10/12/22 10/12/22 10/12/22 Range/Units 00:56 01:58 02:55 RBC (3.80-5.40) m/uL Hgb (11.4-16.0) gm/dL Hct (34.0-46.0) % Plt Count (150-450) k/uL Neutrophils # (1.3-7.7) k/uL Lymphocytes # (1.0-4.8) k/uL ABG pH (7.35-7.45) ABG pCO2 (35-45) mmHg ABG pO2 (83-108) mmHg ABG HCO3 (21-25) mmol/L ABG Total CO2 (19-24) mmol/L ABG O2 Saturation (94-97) % Potassium (3.5-5.1) mmol/L Chloride (98-107) mmol/L BUN (7-17) mg/dL Creatinine (0.52-1.04) mg/dL Glucose (74-99) mg/dL POC Glucose (mg/dL) 187 H 162 H 149 H (70-110) mg/dL Calcium (8.4-10.2) mg/dL Viral Test 10/12/22 10/12/22 10/12/22 Range/Units 03:54 04:50 04:50 RBC 3.19 L (3.80-5.40) m/uL Hgb 10.0 L (11.4-16.0) gm/dL Hct 31.0 L (34.0-46.0) % Plt Count 59 L (150-450) k/uL Neutrophils # 9.3 H (1.3-7.7) k/uL Lymphocytes # 0.2 L (1.0-4.8) k/uL ABG pH (7.35-7.45) ABG pCO2 (35-45) mmHg ABG pO2 (83-108) mmHg ABG HCO3 (21-25) mmol/L ABG Total CO2 (19-24) mmol/L ABG O2 Saturation (94-97) % Potassium 5.6 H (3.5-5.1) mmol/L Chloride 111 H (98-107) mmol/L BUN 117 H* (7-17) mg/dL Creatinine 1.58 H (0.52-1.04) mg/dL Glucose 118 H (74-99) mg/dL POC Glucose (mg/dL) 152 H (70-110) mg/dL Calcium 6.9 L (8.4-10.2) mg/dL Viral Test 10/12/22 10/12/22 10/12/22 Range/Units 04:51 05:14 05:51 RBC (3.80-5.40) m/uL Hgb (11.4-16.0) gm/dL Hct (34.0-46.0) % Plt Count (150-450) k/uL Neutrophils # (1.3-7.7) k/uL Lymphocytes # (1.0-4.8) k/uL ABG pH 7.27 L (7.35-7.45) ABG pCO2 61 H (35-45) mmHg ABG pO2 65 L (83-108) mmHg ABG HCO3 28 H (21-25) mmol/L ABG Total CO2 30 H (19-24) mmol/L ABG O2 Saturation 91.0 L (94-97) % Potassium (3.5-5.1) mmol/L Chloride (98-107) mmol/L BUN (7-17) mg/dL Creatinine (0.52-1.04) mg/dL Glucose (74-99) mg/dL POC Glucose (mg/dL) 122 H 130 H (70-110) mg/dL Calcium (8.4-10.2) mg/dL Viral Test 10/12/22 10/12/22 10/12/22 Range/Units 06:54 08:15 09:09 RBC (3.80-5.40) m/uL Hgb (11.4-16.0) gm/dL Hct (34.0-46.0) % Plt Count (150-450) k/uL Neutrophils # (1.3-7.7) k/uL Lymphocytes # (1.0-4.8) k/uL ABG pH (7.35-7.45) ABG pCO2 (35-45) mmHg ABG pO2 (83-108) mmHg ABG HCO3 (21-25) mmol/L ABG Total CO2 (19-24) mmol/L ABG O2 Saturation (94-97) % Potassium (3.5-5.1) mmol/L Chloride (98-107) mmol/L BUN (7-17) mg/dL Creatinine (0.52-1.04) mg/dL Glucose (74-99) mg/dL POC Glucose (mg/dL) 184 H 164 H 176 H (70-110) mg/dL Calcium (8.4-10.2) mg/dL Viral Test 10/12/22 10/12/22 Range/Units 10:06 10:59 RBC (3.80-5.40) m/uL Hgb (11.4-16.0) gm/dL Hct (34.0-46.0) % Plt Count (150-450) k/uL Neutrophils # (1.3-7.7) k/uL Lymphocytes # (1.0-4.8) k/uL ABG pH (7.35-7.45) ABG pCO2 (35-45) mmHg ABG pO2 (83-108) mmHg ABG HCO3 (21-25) mmol/L ABG Total CO2 (19-24) mmol/L ABG O2 Saturation (94-97) % Potassium (3.5-5.1) mmol/L Chloride (98-107) mmol/L BUN (7-17) mg/dL Creatinine (0.52-1.04) mg/dL Glucose (74-99) mg/dL POC Glucose (mg/dL) 182 H 177 H (70-110) mg/dL Calcium (8.4-10.2) mg/dL Viral Test Microbiology - Last 24 Hours (Table) 10/07/22 11:52 Fungal Culture - Preliminary Bronchoalviolar Lavage - Right Tiffanie albicans Assessment and Plan Assessment: Impression: Acute hypoxic and reported failure secondary to multifocal pneumonia, MSSA pneumonia, and influenza A infection. Staph aureus sepsis/MSSA sepsis and bacteremia, repeat blood cultures were ordered, if positive may have to be quite concerned about the possibility of endocarditis. ARDS, patient is requiring relatively high FiO2 and high PEEP. Patient is on 70% FiO2 and PEEP of 14 Paroxysmal atrial fibrillation. History of valvular heart disease including aortic valve disease with moderate aortic valve stenosis, and moderate mitral valve regurgitation history of aortic valve replacement. History of nonalcoholic liver disease. Acute kidney injury. ARDS. Type 2 diabetes. GERD without esophagitis. Dyslipidemia. Hypertension. History of obstructive sleep apnea syndrome. History of hypothyroidism. Chronic thrombocytopenia and previous history of ITP. Recommendation: Continue ventilatory support. Continue relatively high FiO2 and high PEEP. Continue Nimbex and propofol. Restart Lasix 40 mg IV push every 2 hours. Consider nephrology consultation in the patient's renal status continues to worsen. Continue Solu-Medrol 60 mg IV push every 6 hours. Continue insulin drip. Continue Tamiflu. Until full course was given Continue Unasyn. Patient had MSSA bacteremia and MSSA pneumonia. Recheck blood cultures. Nutritional support/enteral feeding. GI and DVT prophylaxis. We'll continue to follow. Prognosis is extremely guarded. Discussed overall condition and status and prognosis with daughter at bedside. DO NOT RESUSCITATE CODE STATUS as per daughter. Critical care time is over 30 minutes Time with Patient: Greater than 30
[2022-10-12 12:25] LABS: Glucose,Whole Blood 173 mg/dL (70-110)
[2022-10-12] MEDS: FUROSEMIDE 10 MG/ML 4 ML VIAL IV SCH ×2 (12:29→21:18)
--- NOTE | 2022-10-12 12:43 | P.PN ---
Progress Note - Text Progress Note Date: 10/12/22 This is 61-year-old white female with history of depression and bipolar disorder who has history of GI bleed in the past who came in after two-week history of worsening sickness. The patient states upper respiratory congestion. The patient supposedly has had transfusion in about 3-4 months ago due to GI bleed with cauterization. Question element of AV malformation. The patient is new to me. She is nonsmoker. No known sick contacts are stated. She is resting comfortably in her stretcher today. She is a nonsmoker. 10/02/2022 Patient is seen and evaluated and follow-up covering for Dr. Alvin Hartley and patient coming in with worsening generalized weakness and upper respiratory abbe estion. Pulmonary is following and patient was continued on breathing treatments along with IV steroids and being treated for acute flu. Last reviewed and stable. Patient is continued on 2 L nasal cannula with continued congestion and cough. Patient denies chest pain or palpitations. Patient has been up to the bathroom. No reports of nausea or vomiting noted. Wean FiO2 as tolerated. 10/03/2022 She is seen and evaluated in follow-up today with pulmonary following. Patient is maintained on room air maintaining 92-93%. Blood sugars mildly elevated and will continue with current regimen. Patient is continued on IV Solu-Medrol at 60 mg every 6 along with DuoNeb treatments. We'll obtain a chest x-ray today. Patient is currently afebrile denies chest pain or palpitations. Patient c ontinues to have a cough with generalized fatigue and dyspnea with exertion and encourage the patient to increase activity as tolerated. Encourage oral intake and will discuss possible discharge in the next 24-48 hours 10/04/2022 Patient is seen and evaluated and follow-up with pulmonary following. Patient has been maintained on IV steroids and continues to be short of breath with minimal exertion. Patient requiring 2-3 L via nasal cannula reports she does not normally wear oxygen the outpatient setting. Chest x-ray from yesterday showed atelectasis versus pulmonary edema and was given a dose of Lasix. Patient will be given a dose of Lasix today. Patient reports she has been urinating more frequently since the last dose. Repeat BNP today is 1020 magnesium is 1.7. Blood sugars are elevated and maintained on sliding scale and will add low-dose long-acting given the steroids. Recommend Accu-Cheks before meals and at bedtime and close monitoring. Patient is afebrile denies chest pain or palpitations. Patient continues to report shortness of breath and difficulty in breathing. Patient denies nausea or vomiting and tolerating diet. 10/05/2022: I assumed care of the patient today. Sitting up in a recliner. Short of breath. Wheezing. Change to nebulized form off Perforomist and Pulmicort. Increase DuoNeb to every 4. Warm water with salt gargle. Patient is having significant coughing and throat pain. Follow with pulmonary. 10/06/2022: 100 this morning patient became more and more short of breath. Wheezing. Hypoxic. Was put on a BiPAP nonrebreather. As per Mr. has deteriorated patient smoked with ICU intubated. Put on cleviprex drip and Nimbex. On 100% FiO2. Being followed by oncology consultant. 10/07/2022: ICU. Intubated. FiO2 100 a PEEP of 10. Under underwent bronchoscopy by Dr. Weller. No major findings. Current drips include propofol and Nimbex. Patient's of levo fed. No secretions. Discussed with the patient's daughter at the bedside. Doppler ultrasound lower extremity ordered. Empirically on IV cefepime 10/08/2022: ICU. Intubated. FiO2 16 a PEEP of 12. Telemetry sinus rhythm. Drips include propofol and Nimbex. On IV cefepime. IV vancomycin. Blood cultures been trying staph aureus. Daughter at the bedside. 10/09/2022: ICU. Intubated. FiO2 16.. Drips include propofol. Suspect. Bronchial washings confirmed MSSA. Blood cultures not finalized. On IV cefepime and vancomycin. Levemir adjusted 10/10/2022: ICU. Intubated. FiO2 16 a PEEP of 12. Telemetry sinus rhythm. Drips include insulin and propofol. Bronchial washings and blood cultures both confirmed MSSA. Vancomycin discontinued. 10/11/2022: ICU. Intubated. FiO2 60 and a PEEP of 16. Drips include propofol, Nimbex, amiodarone, insulin. Has a F MS place. 10/12/2022: ICU. Intubated. FiO2 70 PEEP of 14. Telemetry: Sinus rhythm. Drips include propofol, Nimbex, insulin,. Has FMS place. Dr. Stockton discussed with the family/daughter the bedside. Patient made DO NOT RESUSCITATE. Active Medications Acetaminophen (Acetaminophen Tab 325 Mg Tab) 650 mg PO Q6HR PRN PRN Reason: Mild Pain or Fever > 100.5 Last Admin: 10/12/22 00:05 Dose: 650 mg Hydrocodone Bitart/Acetaminophen (Hydrocodone/Apap 5-325mg 1 Each Tab) 1 each PO Q4H PRN PRN Reason: Pain Last Admin: 10/08/22 03:59 Dose: 1 each Albuterol/Ipratropium (Ipratropium-Albuterol 3 Ml Neb) 3 ml INHALATION RT-Q4H [facility] Last Admin: 10/12/22 08:43 Dose: 3 ml Amiodarone HCl (Amiodarone 200 Mg Tab) 400 mg PO BID [facility] Last Admin: 10/12/22 08:07 Dose: 400 mg Artificial Tears (Artificial Tears-Hypromellose Drops 15 Ml Btl) 2 drops BOTH EYES Q4HR [facility] Last Admin: 10/12/22 08:30 Dose: 2 drops Atorvastatin Calcium (Atorvastatin 40 Mg Tab) 40 mg PO HS [facility] Last Admin: 10/11/22 20:59 Dose: 40 mg Budesonide (Budesonide 1 Mg/2 Ml Nebu) 1 mg INHALATION RT-BID [facility] Last Admin: 10/12/22 08:43 Dose: 1 mg Chlorhexidine Gluconate (Chlorhexidine Gluconate 15 Ml Cup) 15 ml MUCOUS MEM BID [facility] Last Admin: 10/12/22 08:07 Dose: 15 ml Citalopram Hydrobromide (Citalopram Hydrobromide 20 Mg Tab) 40 mg PO DAILY [facility] Last Admin: 10/12/22 08:07 Dose: 40 mg Cyclobenzaprine HCl (Cyclobenzaprine 10 Mg Tab) 10 mg PO TID PRN PRN Reason: Muscle Pain Dextrose/Water (Dextrose 50% Syringe 50 Ml) 25 ml IVP PER PROTOCOL PRN; Protocol PRN Reason: Hypoglycemia Dextrose/Water (Dextrose 50% Syringe 50 Ml) 50 ml IVP PER PROTOCOL PRN; Protocol PRN Reason: Hypoglycemia Dicyclomine HCl (Dicyclomine 10 Mg Cap) 10 mg PO TID [facility] Last Admin: 10/12/22 08:07 Dose: 10 mg Enoxaparin Sodium (Enoxaparin 40 Mg/0.4 Ml Syringe) 40 mg SQ DAILY [facility] Last Admin: 10/12/22 08:07 Dose: 40 mg Ferrous Sulfate (Ferrous Sulfate Oral Elixir 300 Mg/5 Ml Cup) 300 mg PO BID [facility] Last Admin: 10/12/22 08:09 Dose: 300 mg Formoterol Fumarate (Formoterol Fumarate 20 Mcg/2 Ml Nebu) 20 mcg INHALATION RT-BID [facility] Last Admin: 10/12/22 08:43 Dose: 20 mcg Furosemide (Furosemide 10 Mg/Ml 4 Ml Vial) 40 mg IV Q8H [facility] Last Admin: 10/12/22 12:29 Dose: 40 mg Guaifenesin (Guaifenesin Syrup 100mg/5ml 200 Mg/10 Ml Cup) 400 mg PO Q4H [facility] Last Admin: 10/12/22 12:29 Dose: 400 mg Hydromorphone HCl (Hydromorphone 0.5 Mg/0.5 Ml Syringe) 0.5 mg IVP Q3HR PRN PRN Reason: Pain Last Admin: 10/11/22 19:50 Dose: 0.5 mg Propofol 1,000 mg/ IV Solution 100 mls @ 10.035 mls/hr IV .Q9H58M [facility]; Protocol Last Admin: 10/12/22 08:18 Dose: 50 mcg/kg/min, 33.45 mls/hr Clevidipine 25 mg/ IV Solution 50 mls @ 2 mls/hr IV .Q24H [facility]; Protocol Last Titration: 10/12/22 08:29 Dose: 4 mg/hr, 8 mls/hr Cisatracurium Besylate 200 mg/ (Sodium Chloride) 200 mls @ 6.69 mls/hr IV .Q24H [facility]; Protocol Last Admin: 10/12/22 03:33 Dose: 1 mcg/kg/min, 6.69 mls/hr Norepinephrine Bitartrate 8 mg (/ Sodium Chloride) 258 mls @ 6.473 mls/hr IV .Q24H [facility]; Protocol Last Admin: 10/11/22 19:48 Dose: Not Given Ampicillin Sodium/Sulbactam (Sodium 3 gm/ Sodium Chloride) 100 mls @ 200 mls/hr IVPB Q8HR [facility] Last Admin: 10/12/22 08:06 Dose: 200 mls/hr Insulin Human Regular 100 unit (/ Sodium Chloride) 100 mls @ 0 mls/hr IV .Q0M [facility]; Protocol Last Titration: 10/12/22 06:54 Dose: 9 units/hr, 9 mls/hr Sodium Bicarbonate 150 ml/ (Dextrose/Water) 1,150 mls @ 50 mls/hr IV .Q23H [facility] Last Admin: 10/11/22 14:00 Dose: 50 mls/hr Levothyroxine Sodium (Levothyroxine 137 Mcg Tab) 137 mcg PO DAILY@0630 [facility] Last Admin: 10/12/22 05:53 Dose: 137 mcg Loratadine (Loratadine 10 Mg Tab) 10 mg PO HS [facility] Last Admin: 10/11/22 20:59 Dose: 10 mg Methylprednisolone Sodium Succinate (Methylprednisolone Sod Succi 125 Mg/2 Ml Vial) 60 mg IV Q6HR [facility] Last Admin: 10/12/22 12:29 Dose: 60 mg Metoprolol Tartrate (Metoprolol Tartrate 25 Mg Tab) 37.5 mg PO DAILY [facility] Last Admin: 10/12/22 08:07 Dose: 37.5 mg Miscellaneous Information (Potassium Replacement Protocol 1 Each Misc) 1 each MISCELLANE DAILY PRN PRN Reason: Per Protocol Miscellaneous Information (Magnesium Replacement Protocol 1 Each Misc) 1 each MISCELLANE DAILY PRN; Protocol PRN Reason: Per Protocol Miscellaneous Information (Phosphorus Replacement Protoco 1 Each Misc) 1 each MISCELLANE DAILY PRN; Protocol PRN Reason: Per Protocol Naloxone HCl (Naloxone 0.4 Mg/Ml 1 Ml Vial) 0.2 mg IV Q2M PRN PRN Reason: Opioid Reversal Dulaglutide [ Trulicity] 0.75 Mg/0 .5 Ml Each 0.75 mg SQ MATA [facility] Last Admin: 10/10/22 11:38 Dose: Not Given Ondansetron HCl (Ondansetron 4 Mg/2 Ml Vial) 4 mg IVP Q8HR PRN PRN Reason: Nausea And Vomiting Oseltamivir Phosphate (Oseltamivir 60 Mg/10 Ml Oral Syringe) 30 mg PO Q12HR [facility]; Protocol Stop: 10/13/22 21:01 Last Admin: 10/12/22 08:09 Dose: 30 mg Pantoprazole Sodium (Pantoprazole 40 Mg/10 Ml Vial) 40 mg IVP DAILY [facility] Last Admin: 10/12/22 08:09 Dose: 40 mg Quetiapine Fumarate (Quetiapine 100 Mg Tab) 100 mg PO HS [facility] Last Admin: 10/11/22 21:00 Dose: 100 mg On examination: VITAL SIGNS: Afebrile, 78, 26, 1 57 x 42, 88% on the ventilator GENERAL APPEARANCE: in bed, intubated, ET tube HEENT: Normal external appearance of nose and ear. Oral cavity dry EYES: Pupils equal. Conjunctiva normal. NECK: JVD not raised. Mass not palpable. RESPIRATORY: Respiratory effort increased. Lungs breath sounds, wheezing, crackles CARDIOVASCULAR: First and second sounds normal. No edema. ABDOMEN: Soft. Liver and spleen not palpable. No tenderness. No mass palpable. PSYCHIATRY: Sedated INVESTIGATIONS, reviewed in the clinical context: 10/12/2022: White count and hemoglobin 10 platelets 59 potassium 5.6 BUN 117 creatinine 1.58 10/11/2022: White count 18 with benign 0.5 platelets 50 potassium 5.5-93 creatinine 1.26 10/10/2022: White count 7.1 hemoglobin 9.6 platelets 52 potassium 4.9 creatinine 1.11 Blood culture: MSSA Bronchial culture: MSSA 10/09/2022: White count 13.6 and globin 10.4. DVT 7 potassium 5.1 creatinine 1.01 ABG: PH 7.28 pCO2 55 pO2 71 10/08/2022: White count 3.9 hemoglobin 9.3 platelets 53 potassium 4.6 creatinine 0.68 10/07/2022: WBC 5.8 hemoglobin 9.6 platelets 584 0.5 BUN 26 creatinine 0.05 Bronchoscopy: Essentially unremarkable 10/06/2022: PH 7.3 pO2 77 FiO2 100%. Chest x-ray film. Bilateral infiltrate Sodium 136 potassium 3.8 creatinine 0.7 Chest x-ray film personally reviewed by me-scattered fine infiltrates Influenza A positive Assessment and plan: -Acute severe Influenza a pneumonitis -Acute severe COPD exacerbation in an ex-smoker: Slow to respond DuoNeb to every 4, nebulized Pulmicort and Perforomist, IV Solu-Medrol -secondary bacterial pneumonia with sepsis with lavage cultures and blood cultures positive for MSSA, IV Unasyn -Sepsis with positive blood cultures MSSA IV Unasyn -Troponinemia, type II [place]. -Acute hypoxic respiratory failure secondary to COPD and influenza A: Not improving Patient intubated [October 06]. Ventilator support -Chronic normocytic anemia -Hyperkalemia from kidney disease: Slow to respond Lokelma 10 mg 3 times a day 3 dose is -Chronic ITP Follow platelets -Essential Hypertension Lopressor -Lactic acidosis, improved -Nonalcoholic steatohepatitis -Status post aortic valve replacement history -Hyperlipidemia Lipitor -Hypothyroid Synthroid 137 g -Diabetes mellitus type 2 Continue Trulicity. Follow Accu-Cheks with sliding scale -Obesity BMI 36.3 Weight loss measures -DO NOT RESUSCITATE Intubated. ICU. IV Unasyn IV Nimbex. IV propofol. IV Solu-Medrol. By mouth amiodarone and IV insulin. FMS in place. Lokelma ordered
[2022-10-12] MEDS: DEXTROSE 5% IN WATER 1,000 ML with SODIUM BICARB (1 MEQ/ML) 150 ML IV SCH (13:00)
[2022-10-12 13:04] LABS: Glucose,Whole Blood 177 mg/dL (70-110)
[2022-10-12] MEDS: SODIUM ZIRCONIUM CYCLOSILICATE 10 GM PACKET PO SCH ×3 (13:53→21:18)
[2022-10-12 15:06] LABS: Glucose,Whole Blood 195 mg/dL (70-110)
[2022-10-12 16:11] LABS: Glucose,Whole Blood 168 mg/dL (70-110)
[2022-10-12 17:04] LABS: Glucose,Whole Blood 177 mg/dL (70-110)
[2022-10-12 18:03] LABS: Glucose,Whole Blood 153 mg/dL (70-110)
[2022-10-12] MEDS: NOREPINEPHRINE 8 MG in SODIUM CHLORIDE 0.9% 250 ML IV SCH (18:26)
[2022-10-12 19:02] LABS: Glucose,Whole Blood 148 mg/dL (70-110)
[2022-10-12 20:01] LABS: Glucose,Whole Blood 149 mg/dL (70-110)
--- NOTE | 2022-10-12 20:59 | PN ---
PROGRESS NOTE SUBJECTIVE: Katerina is a 61-year-old lady, who was admitted to hospital with influenza and respiratory failure, intubated, on vent, whom we have been asked to see because of paroxysmal atrial fibrillation. She is currently in sinus rhythm on amiodarone 400 b.i.d., Lipitor 40 mg daily, and Lopressor 37.5 mg daily. Remains intubated and on vent. OBJECTIVE: VITAL SIGNS: In sinus rhythm. Blood pressure is 157/40. Rest of her exam is unchanged. ASSESSMENT: 1. Paroxysmal atrial fibrillation. 2. Ventilator-requiring respiratory failure secondary to influenza. PLAN: She will continue current medications. MMODL / IJN: [id number] /
[2022-10-12 21:07] LABS: Glucose,Whole Blood 146 mg/dL (70-110)
[2022-10-12] MEDS: ATORVASTATIN 40 MG TAB PO SCH (21:17)
[2022-10-12] MEDS: LORATADINE 10 MG TAB PO SCH (21:17)
[2022-10-12] MEDS: QUEtiapine 100 MG TAB PO SCH (21:17)
[2022-10-12] MEDS: HYDROmorphone 0.5 MG/0.5 ML SYRINGE IVP PRN (21:54)
[2022-10-12 22:05] LABS: Glucose,Whole Blood 151 mg/dL (70-110)
[2022-10-13] MEDS: methylPREDNISolone SOD SUCCI 125 MG/2 ML VIAL IV SCH ×2 (00:02→05:13)
[2022-10-13] MEDS: guaiFENesin SYRUP 100MG/5ML 200 MG/10 ML CUP PO SCH ×3 (00:02→08:19)
[2022-10-13 00:03] LABS: Glucose,Whole Blood 131 mg/dL (70-110)
[2022-10-13] MEDS: ARTIFICIAL TEARS-HYPROMELLOSE DROPS 15 ML BTL BOTH EYES SCH ×3 (00:03→08:18)
[2022-10-13 01:09] LABS: Glucose,Whole Blood 162 mg/dL (70-110)
[2022-10-13 02:00] LABS: Glucose,Whole Blood 180 mg/dL (70-110)
[2022-10-13] MEDS ORDERED: FUROSEMIDE 100 MG in SODIUM CHLORIDE 0.9% 90 ML IV SCH (02:15)
[2022-10-13] MEDS: INSULIN ASPART (NovoLOG) 100 UNIT/ML VIAL SQ SCH (02:45)
[2022-10-13] MEDS: VANCOMYCIN 1,750 MG in SODIUM CHLORIDE 0.9% 500 ML 500 ML IVPB SCH (02:45)
[2022-10-13] MEDS: IPRATROPIUM-ALBUTEROL 3 ML NEB INHALATION SCH ×3 (03:03→10:41)
[2022-10-13 03:07] LABS: Glucose,Whole Blood 194 mg/dL (70-110)
[2022-10-13] MEDS: NOREPINEPHRINE 8 MG in SODIUM CHLORIDE 0.9% 250 ML IV SCH (03:23)
[2022-10-13 04:17] LABS: Glucose,Whole Blood 175 mg/dL (70-110)
[2022-10-13 04:24] LABS: Basophils % (A) 0 %; Eosinophils % (A) 0 %; HCT 29.4 % (34.0-46.0); HGB 9.2 gm/dL (11.4-16.0); Hypochromasia Marked; Lymphocytes # (A) 0.2 k/uL (1.0-4.8); Lymphocytes % (A) 3 %; MCH 31.1 pg (25.0-35.0); MCHC 31.5 g/dL (31.0-37.0); Mean Platelet Volume 11.8; Monocytes # (A) 0.2 k/uL (0-1.0); Monocytes % (A) 3 %; Neutrophils # (A) 6.2 k/uL (1.3-7.7); Neutrophils % (A) 94 %; RBC 2.97 m/uL (3.80-5.40); RDW 14.7 % (11.5-15.5); WBC 6.6 k/uL (3.8-10.6)
[2022-10-13 04:37] LABS: Calcium 6.7 mg/dL (8.4-10.2)
[2022-10-13 04:45] LABS: Platelet Count 55 k/uL (150-450)
[2022-10-13 04:56] LABS: Glucose,Whole Blood 159 mg/dL (70-110)
[2022-10-13 05:02] LABS: Potassium 6.5 mmol/L (3.5-5.1)
[2022-10-13] MEDS ORDERED: DEXTROSE 5% IN WATER 100 ML with AMIODARONE 150 MG IV ONE (05:05)
[2022-10-13 05:13] LABS: ABG Base Excess -2.4 mmol/L; ABG HCO3 25 mmol/L (21-25); ABG Oxygen Saturation 87.5 % (94-97); ABG PCO2 59 mmHg (35-45); ABG PH 7.23 (7.35-7.45); ABG PO2 63 mmHg (83-108); ABG TCO2 27 mmol/L (19-24)
[2022-10-13] MEDS: LEVOTHYROXINE 137 MCG TAB PO SCH (05:13)
[2022-10-13] MEDS: CISATRACURIUM 200 MG in SODIUM CHLORIDE 0.9% 180 ML IV SCH (05:13)
[2022-10-13] MEDS: DEXTROSE 5% IN WATER 1,000 ML with SODIUM BICARB (1 MEQ/ML) 150 ML IV SCH (05:14)
[2022-10-13] MEDS: INSULIN REGULAR 100 UNIT in SODIUM CHLORIDE 0.9% 100 ML IV SCH (05:14)
[2022-10-13] MEDS ORDERED: AMIODARONE 360 MG in DEXTROSE 5% IN WATER 200 ML IV ONE ×2 (05:15)
[2022-10-13] MEDS ORDERED: SODIUM BICARB 8.4% 50 ML SYR (1 MEQ/ML) IV STA ×2 (05:38→05:47)
[2022-10-13] MEDS ORDERED: INSULIN REGULAR 100 UNIT/ML VIAL (IV) IV ONE (05:40)
[2022-10-13] MEDS ORDERED: CALCIUM GLUCONATE IN NACL 1 GM in SALINE 1 100ML.BAG IVPB ONE (05:40)
[2022-10-13] MEDS ORDERED: DEXTROSE 50% SYRINGE 50 ML IVP STA (05:40)
[2022-10-13 05:41] LABS: Allen Test Performed? no
[2022-10-13 06:07] LABS: Glucose,Whole Blood 236 mg/dL (70-110)
[2022-10-13 06:55] LABS: Glucose,Whole Blood 185 mg/dL (70-110)
[2022-10-13 07:03] VITALS: RESP 26
--- NOTE | 2022-10-13 07:10 | XR ---
EXAMINATION TYPE: XR chest 1V portable DATE OF EXAM: 10/13/2022 5:42 AM COMPARISON: Chest radiograph from one day prior. TECHNIQUE: XR chest 1V portable Portable AP radiograph of the chest. CLINICAL INDICATION:Female, 61 years old with history of ET placement; FINDINGS: Lungs/Pleura: Similar multifocal airspace opacities. No evidence of pneumothorax. Suspected bilateral small pleural effusions. Pulmonary vascularity: Unremarkable. Heart/mediastinum: Cardiomediastinal silhouette is unremarkable. Post valve repair changes. Musculoskeletal: No acute osseous pathology. Midline sternotomy wires are noted. Other findings: None Lines/Tubes: Endotracheal tube with distal tip 6.0 cm above the tia. Nasogastric tube with its distal tip and side-port projecting under the diaphragm. Left internal jugular central venous catheter with distal tip at the cavoatrial junction. IMPRESSION: 1. Similar multifocal airspace opacities. 2. Stable support line and tubes.
--- NOTE | 2022-10-13 07:22 | XR ---
EXAMINATION TYPE: XR chest 1V portable DATE OF EXAM: 10/13/2022 7:18 AM COMPARISON: Chest radiographs from same day TECHNIQUE: XR chest 1V portable Portable AP radiograph of the chest. CLINICAL INDICATION:Female, 61 years old with history of increased O2 demands; FINDINGS: Lungs/Pleura: Similar multifocal airspace opacities. No evidence of pneumothorax. Suspected bilateral small pleural effusions. Pulmonary vascularity: Unremarkable. Heart/mediastinum: Cardiomediastinal silhouette is unremarkable. Post valve repair changes. Left atr ial appendage occlusion device is present. Musculoskeletal: No acute osseous pathology. Midline sternotomy wires are noted. Other findings: None Lines/Tubes: Endotracheal tube with distal tip 6.0 cm above the tia. Nasogastric tube with its distal tip and side-port projecting under the diaphragm. Left internal jugular central venous catheter with distal tip at the cavoatrial junction. IMPRESSION: 1. Similar multifocal airspace opacities. 2. Stable support line and tubes.
[2022-10-13] MEDS: FORMOTEROL FUMARATE 20 MCG/2 ML NEBU INHALATION SCH (07:37)
[2022-10-13] MEDS: BUDESONIDE 1 MG/2 ML NEBU INHALATION SCH (07:37)
--- NOTE | 2022-10-13 07:44 | CDI ---
Documentation Clarification Form Date: 10/13/2022 7:21:41 AM From: Katarzyna Fischer CCS, CCDS Admit Date: 09/30/2022 10:09:00 PM Patient Name: Katerina Crabtree Visit Number: [id number] Discharge Date: ATTENTION: The Clinical Documentation Specialists (CDI) and [facility] Coding Staff appreciate your assistance in clarifying documentation. Please respond to the clarification below the line at the bottom and electronically sign. The CDI & [facility] Coding staff will review the response and follow-up if needed. Please note: Queries are made part of the Legal Health Record. If you have any questions, please contact the author of this message via ITS. Dr. Rajesh Figueroa: The following is documented in the 10/06 Attending Progress Note: 10/06/2022: This morning patient became more and more short of breath. Wheezing. Hypoxic. Was put on a BiPAP nonrebreather. (Patient) has deteriorated (transferred to) ICU intubated. Put on Cleviprex drip and Nimbex. On 100% FiO2. Additional clarification regarding the above documentation is requested. Patient history/risk factors per the 10/01 H/P: Atrial Fibrillation, Heart Failure, NIDDM II, GERD, Hyperlipidemia, Hypertension, GI Bleed, AVR, DEISI, Nonalcoholic Steatohepatitis, Former smoker, Clinical Indicators: Presented to the ED on 09/30 via EMS with SOB, 2 days of respiratory symptoms, cough, chills, exposed to sick grandchild over the holidays. Initially hypoxic on room air, placed on NC with improvement. Admitted with hypoxic respiratory failure secondary to Influenza, labs suggest Sepsis, will be treated for Sepsis with antibiotics, elevated lactic acid. Admit with Influenza. 09/30 VS: T 103.3, P 82, R 32 (sob, labored, accessory use, head bobbing), BP 155/68, PO 97 5Lnc, 88 RA - 95 5Lnc, BMI: 45.9 09/30 LAB: WBC 2.0, RBC 3.32, Hgb 10.4, Hct 31.3, Plt Ct 71, Lymph 0.2; CO2 20, Lactic Acid 2.7. 10/06 VS: T 103.0, P 98, R 26, 38; BP 189/61, 94/53; PO 15% nrb - 91 100% vent. 10/06 LAB: WBC 13.0, RBC 3.60, Pl Ct 121, Neutrophils 12.2, Lymphocytes 0.2 Blood Gas: pH 7.33, pCO2 77, O2 Sat 93.6. Treatment 09/30: po Tamiflu 75 mg x1, INH Duoneb x1, IV Decadron 10 mg x1, IV Na Chl 1,000 mls @ 75 mls/hr q13H, IV Ampicillin 100 mls @ 200 mls/hr x1, IV na Chl 1,700 mls @ 999 mls/hr q1H. 10/06: IV Propofol q9H, IV Cefepime 100 mls @ 25 mls/hr q12H, IV Clevidipine 50 mls @ 2 mls/hr q24H, IV Cisatracurium Besylate 200 mls @ 6.60 mls/hr q24H, IV Na Chl 1,000 mls @ 50 mls/hr q20H, IV na Chl 1,000 mls @ 999 mls/hr q1H x2. Please clarify the following: [ ] Septic Shock [ ] Hypovolemic Shock [ ] Other Shock, please specify: [ ] Other, please specify__no septic shock [ ] Unable to determine (Template Last Revised: December 2020) MTDD
--- NOTE | 2022-10-13 07:59 | CDI ---
Documentation Clarification Form Date: 10/13/2022 7:47:00 AM From: Katarzyna RussFischerEMILIANO dalal, CCDS Admit Date: 09/30/2022 10:09:00 PM Patient Name: Katerina Crabtree Visit Number: [id number] Discharge Date: ATTENTION: The Clinical Documentation Specialists (CDI) and [facility] Coding Staff appreciate your assistance in clarifying documentation. Please respond to the clarification below the line at the bottom and electronically sign. The CDI & [facility] Coding staff will review the response and follow-up if needed. Please note: Queries are made part of the Legal Health Record. If you have any questions, please contact the author of this message via ITS. Dr. Rajesh Figueroa: The patient has a history of ITP per the H/P and subsequent Progress Notes. Thrombocytopenia is documented beginning in the 10/07 Pulmonary/Critical Care Progress Note. Additional clarification regarding the above documentation and admitting lab values: Patient history/risk factors per the 10/01 H/P: Atrial Fibrillation, Heart Failure, NIDDM II, GERD, Hyperlipidemia, Hypertension, GI Bleed, AVR, DEISI, Nonalcoholic Steatohepatitis, Former smoker, Clinical Indicators: Presented to the ED on 09/30 via EMS with SOB, 2 days of respiratory symptoms, cough, chills, exposed to sick grandchild over the holidays. Initially hypoxic on room air, placed on NC with improvement. Admitted with hypoxic respiratory failure secondary to Influenza, labs suggest Sepsis, will be treated for Sepsis with antibiotics, elevated lactic acid. Admit with Influenza. 09/30 LAB: WBC 2.0, RBC 3.32, Hgb 10.4, Hct 31.3, Plt Ct 71, Lymph 0.2; CO2 20, Lactic Acid 2.7. Treatment 09/30: po Tamiflu 75 mg x1, po Tylenol 1,000 mg x1 - 650 mg q6H/prn, INH Duoneb 3 ml x1, IV Decadron 10 mg x1, IV Zofran 4 mg q8H/prn, IV Na Chl 1,000 mls @ 75 mls /hr q13H - 130 mls/hr q7H, IV Ampicillin 100 mls @ 200 mls/hr x1, IV Na Chl 1,700 mls @ 999 mls/hr q1H. Home meds: Carafate, Trulicity, Dicyclomine, Seroquel, Lopressor, Synthroid, Wiley 5-325, Iron 325 mg BID, Celexa, INH Symbicort, Flexeril, Zyrtec, Lipitor, INH Proair. Please clarify the following: [ ] Pancytopenia drug induced, specify drug [ ] Pancytopenia due to other, please specify [ ] Other condition, please specify: [ ] Unable to determine (Template Last Revised: December 2020) Pancytopenia possibly from sepsis MTDD
[2022-10-13 08:03] LABS: Glucose,Whole Blood 135 mg/dL (70-110)
[2022-10-13 08:06] VITALS: TEMP 100.2
[2022-10-13] MEDS: AMPICILLIN-SULBACTAM 3 GM in SODIUM CHLORIDE 0.9% 100 ML IVPB SCH (08:18)
[2022-10-13] MEDS: FERROUS SULFATE ORAL ELIXIR 300 MG/5 ML CUP PO SCH (08:19)
[2022-10-13] MEDS: ENOXAPARIN 40 MG/0.4 ML SYRINGE SQ SCH (08:19)
[2022-10-13] MEDS: CITALOPRAM HYDROBROMIDE 20 MG TAB PO SCH (08:19)
[2022-10-13] MEDS: DICYCLOMINE 10 MG CAP PO SCH (08:19)
[2022-10-13] MEDS: OSELTAMIVIR 60 MG/10 ML ORAL SYRINGE PO SCH (08:19)
[2022-10-13] MEDS: METOPROLOL TARTRATE 25 MG TAB PO SCH (08:19)
[2022-10-13] MEDS: PANTOPRAZOLE 40 MG/10 ML VIAL IVP SCH (08:19)
[2022-10-13] MEDS: CHLORHEXIDINE GLUCONATE 15 ML CUP MUCOUS MEM SCH (08:20)
[2022-10-13] MEDS ORDERED: SODIUM ZIRCONIUM CYCLOSILICATE 10 GM PACKET PO SCH (09:00)
[2022-10-13 09:07] LABS: Glucose,Whole Blood 141 mg/dL (70-110)
[2022-10-13] MEDS ORDERED: SODIUM CHLORIDE 0.9% 80 ML with fentaNYL (PF) 1,000 MCG IV SCH ×2 (09:15)
[2022-10-13 09:55] VITALS: BMI 45.8
[2022-10-13 10:49] LABS: Glucose,Whole Blood 145 mg/dL (70-110)
[2022-10-13] MEDS ORDERED: AMIODARONE 450 MG in DEXTROSE 5% IN WATER 250 ML IV SCH ×2 (11:15)
[2022-10-13] MEDS ORDERED: ATROPINE OPHTH SOLN 1% 5ML BTL SUBLINGUAL PRN (11:55)
[2022-10-13] MEDS ORDERED: LORazepam 2 MG/ML INJ IV PRN (11:55)
[2022-10-13 11:58] VITALS: BP 94/53; PULSE 121
--- NOTE | 2022-10-13 12:49 | P.PN ---
Subjective Progress Note Date: 10/13/22 Principal diagnosis: Acute hypoxic respiratory failure secondary to multifocal MSSA pneumonia and influenza infection. With MSSA bacteremia 10/10/2022, the patient remains sedation since and paralyzed. We will try to get the patient off paralytics yesterday and she failed and the patient became asynchronous with a mechanical ventilator and she was desaturating. Based on that, Nimbex was restarted and currently Nimbex is running at 1 mcg/kg/m and the patient is also on propofol running at 50 mcg/kg/m and this is day original doses from yesterday. Meanwhile, the patient remains intubated on a mechanical ventilator. On today's evaluation, she is still on assist-control mode at a rate of 26 with a tidal volume of 400 and FiO2 of 60% with a PEEP of 12. Peak airway pressure is 29. Blood gas from today shows a pH of 7.29 with a pCO2 of 53 and pO2 of 68. Noted bronchoscopy was done. The bronchial lavage showed influenza A and staph aureus which was essentially and MSSA. The patient remains on bronchodilators. The patient remains on cefepime and vancomycin will be discontinued today. The patient remains on Tamiflu. The patient remains on IV Solu-Medrol. Repeat chest x-ray shows stable bilateral pulmonary infiltrates although comparing it to the earlier chest x-ray, there is ongoing slow improvement of the chest x-ray findings. The patient's blood work shows a WBC count of 7.1, hemoglobin of 9.6 and a platelet count of 52. Sodium is at 140 with a potassium level of 4.9. BUN is at 70 with a creatinine of 1.1. Glucose at 189. She is receiving enteral feeding for nutritional support and she is currently on vital high-protein at the rate of 39 mL an hour. She is tolerating her enteral feeding. Fluid balance has been positive and the patient is receiving a doses. Overall fluid balance for yesterday was 1.7 L positive. Her echocardiogram showing preserved LV function, moderate mitral regurgitation. She is afebrile. She is hemodynamically stable. She is on no pressors for now. On a separate note, the patient developed some diarrhea. Few medical management system was applied. Stool was negative for C. diff. regards to blood sugar control, she was having elevated blood sugars and ultimately she was switched an insulin drip which is running at 8.5 units an hour. Reevaluated today on 10/11/2022, patient remains in the ICU, intubated and mechanically ventilated. He is on assist control rate of 26 double volume of 400 FiO2 60% and PEEP of 12. ABG showed a pO2 of 69 pCO2 52 pH of 7.28, no changes were made in her ventilator settings. Patient remains on Nimbex, remains on propofol at 50 mcg/kg/m, she is also on amiodarone at 1 mg/m, Nimbex was positive earlier today but considering her marginal ABG, I recommended that she goes back on Nimbex. Patient is on cycle hpf 39 mL per hour which is goal, she was in atrial fibrillation earlier and she was started on amiodarone, hence cardiology was consulted. Patient was placed back on a higher dose of Solu- Medrol 60 mg every 6, and we'll start the patient back on insulin infusion for significantly elevated blood sugars overall the patient is not doing great, she clearly has worsening pulmonary status, she has elevated plateau pressures consistent with ARDS, and her ABG is marginal at best. She is clearly nowhere near weaning at this point WBC count is 8 hemoglobin is 9.5 basic metabolic profile is normal potassium is a bit elevated at 5.6, BUN is 93 creatinine 1.26. Chest x-ray showed cardiomegaly and bilateral multifocal infiltrates. Echocardiogram showed good LV function, ejection fraction of 55% moderate mitral regurgitation was noted and moderate aortic stenosis was also noted. Cardiology was consulted on this patient today remains on Tamiflu. Remains on Unasyn. Patient was reevaluated today on 10/12/2022, remains in the ICU, sedated and paralyzed. Remains on relatively high PEEP and high FiO2. Had to go up on the PEEP to 14 and FiO2 is 70% today. ABG showed a pO2 65, pCO2 61 pH of 7.27. She is on assist control rate of 26 double volume 400 FiO2 70% and PEEP of 14. Patient is on propofol at 50 mcg/kg/m, she is on Nimbex at 20 mcg/kg/m, she is on insulin 9 units an hour, bicarb drip at 50 mL per hour, clevidipine 2 mg per hour and she is on vital hpf 39 mL per hour. Repeat blood cultures were ordered today, discussed her condition with family at bedside/daughter, and made aware of the poor prognosis, family may consider comfort care measures but not yet, but willing to go with DO NOT RESUSCITATE CODE STATUS considering her multiple issues and poor prognosis. WBC count today is 10 hemoglobin is 10. Basic metabolic profile is normal except for potassium of 5.6, BUN is up to 117 creatinine is up to 1.58. Last BNP level was 2520. Patient remains on diuretics. Chest x-ray continues show bilateral interstitial infiltrates./Mult ifocal patchy airspace disease persists without any significant change Reevaluated today on 10/13/2022, patient remains in the ICU, intubated, mechanically ventilated, doing very poorly, and actually worse in the last 24 hours. Patient is on assist control rate of 26 total volume 400 FiO2 100% PEEP of 14 ABG showed a pO2 of 63 pCO2 59 pH of 7.23. Remains on Nimbex, propofol at 40 mcg/kg/m, Lasix at 10 mg per hour. Norepinephrine 0.1 mcg/kg/m amiodarone 1 mg/m she is also on bicarb 150 mEq at 50 mL per hour. Chest x-ray continues to show evidence of ARDS. Her ABG is showing worsening acid base imbalance, worsening oxygenation, worsening pCO2. Her renal functioning is also getting worse in spite of good urine output with Lasix today. Nephrology was consulted however the patient's family discussed with the nurse earlier today that they are coming in and they would like to proceed with comfort care measures. Considering the family is planning comfort care measures, will discontinue Nimbex, use fentanyl instead, and with the family arrives we'll proceed with comfort care measures sometime in the next few hours. Objective - Vital Signs Vital signs: Vital Signs Temp 100.2 F H 10/13/22 08:00 Pulse 121 H 10/13/22 11:30 Resp 26 H 10/13/22 11:30 BP 94/53 10/13/22 10:30 Pulse Ox 88 L 10/13/22 11:30 FiO2 100 10/13/22 10:37 Intake & Output 10/12/22 10/13/22 10/13/22 18:59 06:59 18:59 Intake Total 8865.372 8554.377 713.451 Output Total 715 425 80 Balance 5768.218 3184.377 633.451 Weight 129 kg 129 kg Intake: IV 952 836 487 .9NS 80 220 60 0.9NS Pressure Bag 72 66 27 Ampicillin-Sulbactam 3 gm 200 100 In Sodium Chloride 0.9% 100 ml @ 200 mls/hr IVPB Q8HR [facility] Rx#:[id number] Dextrose 5% in Water 1, 600 550 300 000 ml @ 50 mls/hr IV . Q23H [facility] with Sodium Bicarb (1 Meq/ml) 150 ml Rx#:[id number] Intake, IV Titration 475.446 829.377 118.451 Amount Calcium Gluconate in NaCl 100 1 gm In Saline 1 100ml. bag @ 100 mls/hr IVPB ONCE ONE Rx#:[id number] Cisatracurium 200 mg In 171.71 28.879 Sodium Chloride 0.9% 180 ml @ 1 MCG/KG/MIN 6.69 mls/hr IV .Q24H [facility] Rx#: [id number] Clevidipine Butyrate 25 8.066 mg In Empty Bag 1 bag @ 1 MG/HR 2 mls/hr IV .Q24H [facility] Rx#:[id number] Furosemide 100 mg In 40 10 Sodium Chloride 0.9% 90 ml @ 10 MG/HR 10 mls/hr IV .Q10H [facility] Rx#: [id number] Insulin Regular 100 unit 75.95 119.275 6.9 In Sodium Chloride 0.9% 100 ml @ Titrate IV .Q0M [facility] Rx#:[id number] Norepinephrine 8 mg In 33.189 72.672 Sodium Chloride 0.9% 250 ml @ 0.03 MCG/KG/MIN 6. 473 mls/hr IV .Q24H [facility] Rx#:[id number] propofoL 1,000 mg In 391.43 365.203 Empty Bag 1 bag @ 15 MCG/ KG/MIN 10.035 mls/hr IV . Q9H58M [facility] Rx#:[id number] Tube Feeding 468 429 78 Other 90 90 30 Output: Urine 715 425 80 Other: Voiding Method Indwelling Catheter Indwelling Catheter ABP, PAP, CO, CI - Last Documented Arterial Blood Pressure 93/37 - Exam Physical Exam: Revealed a 61-year-old female, obese, intubated, mechanically ventilated, sedated and on Nimbex. Head: Atraumatic, normocephalic. HEENT:[Neck is supple.] [No neck masses.] [No thyromegaly.] [No JVD.] Chest: [Diffuse rhonchi and wheezes noted bilaterally. Cardiac Exam: [Normal S1 and S2, no S3 gallop, 2/6 systolic murmur thought the precordium. Abdomen: [Obese, Soft, nontender, no megaly, no rebound, no guarding, normal bowel sounds.] Extremities: [No clubbing, 2+ bipedal edema, no cyanosis.] Neurological Exam: Not assessed, patient is sedated and paralyzed. Psychiatric: Could not assess. Skin: No rashes. - Labs CBC & Chem 7: 10/13/22 04:00 10/13/22 04:00 Labs: Abnormal Lab Results - Last 24 Hours (Table) 10/12/22 10/12/22 10/12/22 Range/Units 13:02 15:03 16:09 RBC (3.80-5.40) m/uL Hgb (11.4-16.0) gm/dL Hct (34.0-46.0) % Plt Count (150-450) k/uL Lymphocytes # (1.0-4.8) k/uL ABG pH (7.35-7.45) ABG pCO2 (35-45) mmHg ABG pO2 (83-108) mmHg ABG Total CO2 (19-24) mmol/L ABG O2 Saturation (94-97) % Potassium (3.5-5.1) mmol/L Chloride (98-107) mmol/L BUN (7-17) mg/dL Creatinine (0.52-1.04) mg/dL Glucose (74-99) mg/dL POC Glucose (mg/dL) 177 H 195 H 168 H (70-110) mg/dL Calcium (8.4-10.2) mg/dL 10/12/22 10/12/22 10/12/22 Range/Units 17:02 18:02 19:01 RBC (3.80-5.40) m/uL Hgb (11.4-16.0) gm/dL Hct (34.0-46.0) % Plt Count (150-450) k/uL Lymphocytes # (1.0-4.8) k/uL ABG pH (7.35-7.45) ABG pCO2 (35-45) mmHg ABG pO2 (83-108) mmHg ABG Total CO2 (19-24) mmol/L ABG O2 Saturation (94-97) % Potassium (3.5-5.1) mmol/L Chloride (98-107) mmol/L BUN (7-17) mg/dL Creatinine (0.52-1.04) mg/dL Glucose (74-99) mg/dL POC Glucose (mg/dL) 177 H 153 H 148 H (70-110) mg/dL Calcium (8.4-10.2) mg/dL 10/12/22 10/12/22 10/12/22 Range/Units 20:00 21:06 22:03 RBC (3.80-5.40) m/uL Hgb (11.4-16.0) gm/dL Hct (34.0-46.0) % Plt Count (150-450) k/uL Lymphocytes # (1.0-4.8) k/uL ABG pH (7.35-7.45) ABG pCO2 (35-45) mmHg ABG pO2 (83-108) mmHg ABG Total CO2 (19-24) mmol/L ABG O2 Saturation (94-97) % Potassium (3.5-5.1) mmol/L Chloride (98-107) mmol/L BUN (7-17) mg/dL Creatinine (0.52-1.04) mg/dL Glucose (74-99) mg/dL POC Glucose (mg/dL) 149 H 146 H 151 H (70-110) mg/dL Calcium (8.4-10.2) mg/dL 10/12/22 10/13/22 10/13/22 Range/Units 23:57 01:07 01:58 RBC (3.80-5.40) m/uL Hgb (11.4-16.0) gm/dL Hct (34.0-46.0) % Plt Count (150-450) k/uL Lymphocytes # (1.0-4.8) k/uL ABG pH (7.35-7.45) ABG pCO2 (35-45) mmHg ABG pO2 (83-108) mmHg ABG Total CO2 (19-24) mmol/L ABG O2 Saturation (94-97) % Potassium (3.5-5.1) mmol/L Chloride (98-107) mmol/L BUN (7-17) mg/dL Creatinine (0.52-1.04) mg/dL Glucose (74-99) mg/dL POC Glucose (mg/dL) 131 H 162 H 180 H (70-110) mg/dL Calcium (8.4-10.2) mg/dL 10/13/22 10/13/22 10/13/22 Range/Units 03:05 04:00 04:00 RBC 2.97 L (3.80-5.40) m/uL Hgb 9.2 L (11.4-16.0) gm/dL Hct 29.4 L (34.0-46.0) % Plt Count 55 L (150-450) k/uL Lymphocytes # 0.2 L (1.0-4.8) k/uL ABG pH (7.35-7.45) ABG pCO2 (35-45) mmHg ABG pO2 (83-108) mmHg ABG Total CO2 (19-24) mmol/L ABG O2 Saturation (94-97) % Potassium 6.5 H* (3.5-5.1) mmol/L Chloride 108 H (98-107) mmol/L BUN 136 H* (7-17) mg/dL Creatinine 2.22 H (0.52-1.04) mg/dL Glucose 163 H (74-99) mg/dL POC Glucose (mg/dL) 194 H (70-110) mg/dL Calcium 6.7 L (8.4-10.2) mg/dL 10/13/22 10/13/22 10/13/22 Range/Units 04:05 04:54 05:10 RBC (3.80-5.40) m/uL Hgb (11.4-16.0) gm/dL Hct (34.0-46.0) % Plt Count (150-450) k/uL Lymphocytes # (1.0-4.8) k/uL ABG pH 7.23 L (7.35-7.45) ABG pCO2 59 H (35-45) mmHg ABG pO2 63 L (83-108) mmHg ABG Total CO2 27 H (19-24) mmol/L ABG O2 Saturation 87.5 L (94-97) % Potassium (3.5-5.1) mmol/L Chloride (98-107) mmol/L BUN (7-17) mg/dL Creatinine (0.52-1.04) mg/dL Glucose (74-99) mg/dL POC Glucose (mg/dL) 175 H 159 H (70-110) mg/dL Calcium (8.4-10.2) mg/dL 10/13/22 10/13/22 10/13/22 Range/Units 06:05 06:54 08:02 RBC (3.80-5.40) m/uL Hgb (11.4-16.0) gm/dL Hct (34.0-46.0) % Plt Count (150-450) k/uL Lymphocytes # (1.0-4.8) k/uL ABG pH (7.35-7.45) ABG pCO2 (35-45) mmHg ABG pO2 (83-108) mmHg ABG Total CO2 (19-24) mmol/L ABG O2 Saturation (94-97) % Potassium (3.5-5.1) mmol/L Chloride (98-107) mmol/L BUN (7-17) mg/dL Creatinine (0.52-1.04) mg/dL Glucose (74-99) mg/dL POC Glucose (mg/dL) 236 H 185 H 135 H (70-110) mg/dL Calcium (8.4-10.2) mg/dL 10/13/22 10/13/22 Range/Units 09:06 10:47 RBC (3.80-5.40) m/uL Hgb (11.4-16.0) gm/dL Hct (34.0-46.0) % Plt Count (150-450) k/uL Lymphocytes # (1.0-4.8) k/uL ABG pH (7.35-7.45) ABG pCO2 (35-45) mmHg ABG pO2 (83-108) mmHg ABG Total CO2 (19-24) mmol/L ABG O2 Saturation (94-97) % Potassium (3.5-5.1) mmol/L Chloride (98-107) mmol/L BUN (7-17) mg/dL Creatinine (0.52-1.04) mg/dL Glucose (74-99) mg/dL POC Glucose (mg/dL) 141 H 145 H (70-110) mg/dL Calcium (8.4-10.2) mg/dL Assessment and Plan Assessment: Impression: Acute hypoxic and reported failure secondary to multifocal pneumonia, MSSA pneumonia, and influenza A infection. Staph aureus sepsis/MSSA sepsis and bacteremia, repeat blood cultures were ordered, if positive may have to be quite concerned about the possibility of endocarditis. ARDS, patient is requiring relatively high FiO2 and high PEEP. Patient did not tolerate higher PEEP went as high as 16, she actually got worse with higher PEEP, hence placed back on PEEP of 14 and FiO2 of 100% Paroxysmal atrial fibrillation. History of valvular heart disease including aortic valve disease with moderate aortic valve stenosis, and moderate mitral valve regurgitation history of aortic valve replacement. History of nonalcoholic liver disease. Acute kidney injury. ARDS. Type 2 diabetes. GERD without esophagitis. Dyslipidemia. Hypertension. History of obstructive sleep apnea syndrome. History of hypothyroidism. Chronic thrombocytopenia and previous history of ITP. Recommendation: Agree with comfort care measures. In the meantime, Continue ventilatory support. Continue relatively high FiO2 and high PEEP. Discontinue Nimbex, continue propofol and add fentanyl.. Proceed to comfort care measures once the family is here in ICU. As per on wishes. Overall prognosis extremely poor. Patient is critically ill, critical care time is over 30min Time with Patient: Greater than 30
--- NOTE | 2022-10-13 13:10 | P.PN ---
Progress Note - Text Progress Note Date: 10/13/22 This is 61-year-old white female with history of depression and bipolar disorder who has history of GI bleed in the past who came in after two-week history of worsening sickness. The patient states upper respiratory congestion. The patient supposedly has had transfusion in about 3-4 months ago due to GI bleed with cauterization. Question element of AV malformation. The patient is new to me. She is nonsmoker. No known sick contacts are stated. She is resting comfortably in her stretcher today. She is a nonsmoker. 10/02/2022 Patient is seen and evaluated and follow-up covering for Dr. Alvin Hartley and patient coming in with worsening generalized weakness and upper respiratory abbe estion. Pulmonary is following and patient was continued on breathing treatments along with IV steroids and being treated for acute flu. Last reviewed and stable. Patient is continued on 2 L nasal cannula with continued congestion and cough. Patient denies chest pain or palpitations. Patient has been up to the bathroom. No reports of nausea or vomiting noted. Wean FiO2 as tolerated. 10/03/2022 She is seen and evaluated in follow-up today with pulmonary following. Patient is maintained on room air maintaining 92-93%. Blood sugars mildly elevated and will continue with current regimen. Patient is continued on IV Solu-Medrol at 60 mg every 6 along with DuoNeb treatments. We'll obtain a chest x-ray today. Patient is currently afebrile denies chest pain or palpitations. Patient c ontinues to have a cough with generalized fatigue and dyspnea with exertion and encourage the patient to increase activity as tolerated. Encourage oral intake and will discuss possible discharge in the next 24-48 hours 10/04/2022 Patient is seen and evaluated and follow-up with pulmonary following. Patient has been maintained on IV steroids and continues to be short of breath with minimal exertion. Patient requiring 2-3 L via nasal cannula reports she does not normally wear oxygen the outpatient setting. Chest x-ray from yesterday showed atelectasis versus pulmonary edema and was given a dose of Lasix. Patient will be given a dose of Lasix today. Patient reports she has been urinating more frequently since the last dose. Repeat BNP today is 1020 magnesium is 1.7. Blood sugars are elevated and maintained on sliding scale and will add low-dose long-acting given the steroids. Recommend Accu-Cheks before meals and at bedtime and close monitoring. Patient is afebrile denies chest pain or palpitations. Patient continues to report shortness of breath and difficulty in breathing. Patient denies nausea or vomiting and tolerating diet. 10/05/2022: I assumed care of the patient today. Sitting up in a recliner. Short of breath. Wheezing. Change to nebulized form off Perforomist and Pulmicort. Increase DuoNeb to every 4. Warm water with salt gargle. Patient is having significant coughing and throat pain. Follow with pulmonary. 10/06/2022: 100 this morning patient became more and more short of breath. Wheezing. Hypoxic. Was put on a BiPAP nonrebreather. As per Mr. has deteriorated patient smoked with ICU intubated. Put on cleviprex drip and Nimbex. On 100% FiO2. Being followed by protocol manager. 10/07/2022: ICU. Intubated. FiO2 100 a PEEP of 10. Under underwent bronchoscopy by Dr. Weller. No major findings. Current drips include propofol and Nimbex. Patient's of levo fed. No secretions. Discussed with the patient's daughter at the bedside. Doppler ultrasound lower extremity ordered. Empirically on IV cefepime 10/08/2022: ICU. Intubated. FiO2 16 a PEEP of 12. Telemetry sinus rhythm. Drips include propofol and Nimbex. On IV cefepime. IV vancomycin. Blood cultures been trying staph aureus. Daughter at the bedside. 10/09/2022: ICU. Intubated. FiO2 16.. Drips include propofol. Suspect. Bronchial washings confirmed MSSA. Blood cultures not finalized. On IV cefepime and vancomycin. Levemir adjusted 10/10/2022: ICU. Intubated. FiO2 16 a PEEP of 12. Telemetry sinus rhythm. Drips include insulin and propofol. Bronchial washings and blood cultures both confirmed MSSA. Vancomycin discontinued. 10/11/2022: ICU. Intubated. FiO2 60 and a PEEP of 16. Drips include propofol, Nimbex, amiodarone, insulin. Has a F MS place. 10/12/2022: ICU. Intubated. FiO2 70 PEEP of 14. Telemetry: Sinus rhythm. Drips include propofol, Nimbex, insulin,. Has FMS place. Dr. Stockton discussed with the family/daughter the bedside. Patient made DO NOT RESUSCITATE. 10/13/2022: ICU. Intubated. Drips include fentanyl, propofol, norepinephrine. A. fib with rapid ventricular rate. Family has decided to proceed with double extubation. Daughter in the room. Current medications reviewed On examination: VITAL SIGNS: Afebrile, 140, 26, 90/53, 90% GENERAL APPEARANCE: in bed, intubated, ET tube HEENT: Normal external appearance of nose and ear. Oral cavity dry EYES: Pupils equal. Conjunctiva normal. NECK: JVD not raised. Mass not palpable. RESPIRATORY: Respiratory effort increased. Lungs breath sounds, wheezing, crackles CARDIOVASCULAR: First and second sounds normal. No edema. ABDOMEN: Soft. Liver and spleen not palpable. No tenderness. No mass palpable. PSYCHIATRY: Sedated INVESTIGATIONS, reviewed in the clinical context: 10/13/2022: White count 6.6 and 11 9.2 platelets 55 progression 6.5. 136 creatinine 2.2 to Blood culture: MSSA Bronchial culture: MSSA 10/09/2022: White count 13.6 and globin 10.4. DVT 7 potassium 5.1 creatinine 1.01 ABG: PH 7.28 pCO2 55 pO2 71 10/08/2022: White count 3.9 hemoglobin 9.3 platelets 53 potassium 4.6 creatinine 0.68 10/07/2022: WBC 5.8 hemoglobin 9.6 platelets 584 0.5 BUN 26 creatinine 0.05 Bronchoscopy: Essentially unremarkable 10/06/2022: PH 7.3 pO2 77 FiO2 100%. Chest x-ray film. Bilateral infiltrate Sodium 136 potassium 3.8 creatinine 0.7 Chest x-ray film personally reviewed by me-scattered fine infiltrates Influenza A positive Assessment and plan: -Acute severe Influenza a pneumonitis -Acute severe COPD exacerbation in an ex-smoker: Slow to respond DuoNeb to every 4, nebulized Pulmicort and Perforomist, IV Solu-Medrol -Atrial fibrillation with rapid ventricular rate -secondary bacterial pneumonia with sepsis with lavage cultures and blood cultures positive for MSSA, IV Unasyn -Sepsis with positive blood cultures MSSA IV Unasyn -Troponinemia, type II DE. -Acute hypoxic respiratory failure secondary to COPD and influenza A: Not improving Patient intubated [October 06]. Ventilator support -Chronic normocytic anemia -Hyperkalemia from kidney disease: Worsening Received Lokelma -Chronic ITP Follow platelets -Essential Hypertension Lopressor -Lactic acidosis, improved -Nonalcoholic steatohepatitis -Status post aortic valve replacement history -Hyperlipidemia Lipitor -Hypothyroid Synthroid 137 g -Diabetes mellitus type 2 Continue Trulicity. Follow Accu-Cheks with sliding scale -Obesity BMI 36.3 Weight loss measures -DO NOT RESUSCITATE Intubated. ICU. IV Unasyn IV fentanyl, propofol, norepinephrine. Uncontrolled A. fib. Family is decided proceed with abdominal extubation comfort care. Prognosis poor
--- NOTE | 2022-10-13 17:34 | P.DS ---
Providers Date of admission: 09/30/22 22:09 Expected date of discharge: 10/13/22 Attending physician: Rajesh Figueroa Consults: 09/30/22 22:11 Consult Physician Routine Consulting Provider: Diego Osullivan Consult Reason/Comments: hypoxia Do you want consulting provider notified?: Yes 10/11/22 08:53 Consult Physician Routine Consulting Provider: Porter Figueroa Consult Reason/Comments: Atrial fibrillation Do you want consulting provider notified?: Yes 10/13/22 05:38 Consult Physician Stat Consulting Provider: Maria Del Rosario Presley Consult Reason/Comments: Elevated renal function Do you want consulting provider notified?: Yes Primary care physician: [facility] Course: This is 61-year-old white female with history of depression and bipolar disorder who has history of GI bleed in the past who came in after two-week history of worsening sickness. The patient states upper respiratory congestion. The patient supposedly has had transfusion in about 3-4 months ago due to GI bleed with cauterization. Question element of AV malformation. The patient is new to me. She is nonsmoker. No known sick contacts are stated. She is resting comfortably in her stretcher today. She is a nonsmoker. 10/02/2022 Patient is seen and evaluated and follow-up covering for Dr. Alvin Hartley and patient coming in with worsening generalized weakness and upper respiratory abbe estion. Pulmonary is following and patient was continued on breathing treatments along with IV steroids and being treated for acute flu. Last reviewed and stable. Patient is continued on 2 L nasal cannula with continued congestion and cough. Patient denies chest pain or palpitations. Patient has been up to the bathroom. No reports of nausea or vomiting noted. Wean FiO2 as tolerated. 10/03/2022 She is seen and evaluated in follow-up today with pulmonary following. Patient is maintained on room air maintaining 92-93%. Blood sugars mildly elevated and will continue with current regimen. Patient is continued on IV Solu-Medrol at 60 mg every 6 along with DuoNeb treatments. We'll obtain a chest x-ray today. Patient is currently afebrile denies chest pain or palpitations. Patient c ontinues to have a cough with generalized fatigue and dyspnea with exertion and encourage the patient to increase activity as tolerated. Encourage oral intake and will discuss possible discharge in the next 24-48 hours 10/04/2022 Patient is seen and evaluated and follow-up with pulmonary following. Patient has been maintained on IV steroids and continues to be short of breath with minimal exertion. Patient requiring 2-3 L via nasal cannula reports she does not normally wear oxygen the outpatient setting. Chest x-ray from yesterday showed atelectasis versus pulmonary edema and was given a dose of Lasix. Patient will be given a dose of Lasix today. Patient reports she has been urinating more frequently since the last dose. Repeat BNP today is 1020 magnesium is 1.7. Blood sugars are elevated and maintained on sliding scale and will add low-dose long-acting given the steroids. Recommend Accu-Cheks before meals and at bedtime and close monitoring. Patient is afebrile denies chest pain or palpitations. Patient continues to report shortness of breath and difficulty in breathing. Patient denies nausea or vomiting and tolerating diet. 10/05/2022: I assumed care of the patient today. Sitting up in a recliner. Short of breath. Wheezing. Change to nebulized form off Perforomist and Pulmicort. Increase DuoNeb to every 4. Warm water with salt gargle. Patient is having significant coughing and throat pain. Follow with pulmonary. 10/06/2022: 100 this morning patient became more and more short of breath. Wheezing. Hypoxic. Was put on a BiPAP nonrebreather. As per Mr. has deteriorated patient smoked with ICU intubated. Put on cleviprex drip and Nimbex. On 100% FiO2. Being followed by [employer] representative [employer] service. 10/07/2022: ICU. Intubated. FiO2 100 a PEEP of 10. Under underwent bronchoscopy by Dr. Weller. No major findings. Current drips include propofol and Nimbex. Patient's of levo fed. No secretions. Discussed with the patient's daughter at the bedside. Doppler ultrasound lower extremity ordered. Empirically on IV cefepime 10/08/2022: ICU. Intubated. FiO2 16 a PEEP of 12. Telemetry sinus rhythm. Drips include propofol and Nimbex. On IV cefepime. IV vancomycin. Blood cultures been trying staph aureus. Daughter at the bedside. 10/09/2022: ICU. Intubated. FiO2 16.. Drips include propofol. Suspect. Bronchial washings confirmed MSSA. Blood cultures not finalized. On IV cefepime and vancomycin. Levemir adjusted 10/10/2022: ICU. Intubated. FiO2 16 a PEEP of 12. Telemetry sinus rhythm. Drips include insulin and propofol. Bronchial washings and blood cultures both confirmed MSSA. Vancomycin discontinued. 10/11/2022: ICU. Intubated. FiO2 60 and a PEEP of 16. Drips include propofol, Nimbex, amiodarone, insulin. Has a F MS place. 10/12/2022: ICU. Intubated. FiO2 70 PEEP of 14. Telemetry: Sinus rhythm. Drips include propofol, Nimbex, insulin,. Has FMS place. Dr. Stockton discussed with the family/daughter the bedside. Patient made DO NOT RESUSCITATE. 10/13/2022: ICU. Intubated. Drips include fentanyl, propofol, norepinephrine. A. fib with rapid ventricular rate. Family has decided to proceed with abdominal extubation. Daughter in the room. Later patient INVESTIGATIONS, reviewed in the clinical context: 10/13/2022: White count 6.6 and 11 9.2 platelets 55 progression 6.5. 136 creatinine 2.2 to Blood culture: MSSA Bronchial culture: MSSA 10/09/2022: White count 13.6 and globin 10.4. DVT 7 potassium 5.1 creatinine 1.01 ABG: PH 7.28 pCO2 55 pO2 71 10/08/2022: White count 3.9 hemoglobin 9.3 platelets 53 potassium 4.6 creatinine 0.68 10/07/2022: WBC 5.8 hemoglobin 9.6 platelets 584 0.5 BUN 26 creatinine 0.05 Bronchoscopy: Essentially unremarkable 10/06/2022: PH 7.3 pO2 77 FiO2 100%. Chest x-ray film. Bilateral infiltrate Sodium 136 potassium 3.8 creatinine 0.7 Chest x-ray film personally reviewed by me-scattered fine infiltrates Influenza A positive Cause of : Influenza a pneumonitis Assessment and plan: -Acute severe Influenza a pneumonitis -Acute severe COPD exacerbation in an ex-smoker: Slow to respond DuoNeb to every 4, nebulized Pulmicort and Perforomist, IV Solu-Medrol -Atrial fibrillation with rapid ventricular rate -secondary bacterial pneumonia with sepsis with lavage cultures and blood cultures positive for MSSA, IV Unasyn -Sepsis with positive blood cultures MSSA IV Unasyn -Troponinemia, type II AL. -Acute hypoxic respiratory failure secondary to COPD and influenza A: Not improving Patient intubated [October 06]. Ventilator support -Chronic normocytic anemia -Hyperkalemia from kidney disease: Worsening Received Lokelma -Chronic ITP Follow platelets -Essential Hypertension Lopressor -Lactic acidosis, improved -Nonalcoholic steatohepatitis -Status post aortic valve replacement history -Hyperlipidemia Lipitor -Hypothyroid Synthroid 137 g -Diabetes mellitus type 2 Continue Trulicity. Follow Accu-Cheks with sliding scale -Obesity BMI 36.3 Weight loss measures -DO NOT RESUSCITATE Intubated. ICU. IV Unasyn IV fentanyl, propofol, norepinephrine. Uncontrolled A. fib. Family is decided proceed with abdominal extubation c omfort care. Prognosis poor Patient Condition at Discharge: Fair Plan - Discharge Summary Discharge Rx Participant: Yes New Discharge Prescriptions: No Action Atorvastatin [Lipitor] 40 mg PO HS #30 tab Levothyroxine Sodium [Synthroid] 137 mcg PO DAILY Cetirizine HCl [Zyrtec] 10 mg PO HS Albuterol Sulfate [Proair Hfa] 2 puff INHALATION RT-Q6H PRN PRN Reason: Shortness Of Breath Budesonide/Formoterol Fumarate [Symbicort 80-4.5 Mcg Inhaler] 2 puff INHALATION RT-BID HYDROcodone/APAP 5-325MG [[place] 5-325] 1 tab PO Q4H PRN PRN Reason: Pain Cyclobenzaprine [Flexeril] 10 mg PO TID PRN PRN Reason: Muscle Pain QUEtiapine [SEROquel] 100 mg PO HS Citalopram Hydrobromide [CeleXA] 40 mg PO DAILY Dicyclomine HCl 10 mg PO TID Ferrous Sulfate [Iron] 325 mg PO BID Metoprolol Tartrate [Lopressor] 37.5 mg PO DAILY Sucralfate [Carafate] 1 gm PO ACHS Dulaglutide [Trulicity] 0.75 mg SQ MATA Discharge Medication List Atorvastatin [Lipitor] 40 mg PO HS #30 tab 05/05/19 [Rx] Levothyroxine Sodium [Synthroid] 137 mcg PO DAILY 05/21/19 [History] Cetirizine HCl [Zyrtec] 10 mg PO HS 09/30/21 [History] Albuterol Sulfate [Proair Hfa] 2 puff INHALATION RT-Q6H PRN 11/05/21 [History] Metoprolol Tartrate [Lopressor] 37.5 mg PO DAILY 11/05/21 [History] Budesonide/Formoterol Fumarate [Symbicort 80-4.5 Mcg Inhaler] 2 puff INHALATION RT-BID 11/11/21 [History] HYDROcodone/APAP 5-325MG [[place] 5-325] 1 tab PO Q4H PRN 03/18/22 [History] Citalopram Hydrobromide [CeleXA] 40 mg PO DAILY 03/21/22 [History] Cyclobenzaprine [Flexeril] 10 mg PO TID PRN 03/21/22 [History] QUEtiapine [SEROquel] 100 mg PO HS 03/21/22 [History] Dicyclomine HCl 10 mg PO TID 09/30/22 [History] Dulaglutide [Trulicity] 0.75 mg SQ MATA 09/30/22 [History] Ferrous Sulfate [Iron] 325 mg PO BID 09/30/22 [History] Sucralfate [Carafate] 1 gm PO ACHS 09/30/22 [History] Follow up Appointment(s)/Referral(s): Odilon Hall MD [Primary Care Provider] - 1-2 days Discharge Disposition: - Preliminary Cause of Preliminary Cause of : Influenza a pneumonitis
--- NOTE | 2022-10-13 20:49 | PN ---
PROGRESS NOTE Katerina is a 61-year-old lady that we have been following for episodes of paroxysmal atrial fibrillation. Last night, she went into atrial fibrillation with rapid ventricular rate and I started her on IV amiodarone, currently intubated on vent and family is trying to make decision about comfort care sometime this morning. Her heart rate is elevated and I am not going to make any changes at this time, but leave her on what she is on. MMCHEL / REESEN: [id number] /
[2022-10-13] MEDS ORDERED: AMPICILLIN-SULBACTAM 3 GM in SODIUM CHLORIDE 0.9% 100 ML IVPB SCH (21:00)
[2022-10-13 22:56] LABS: % Iron Saturation 15.73 (12.00-45.00)
[2022-10-14] MEDS ORDERED: ENOXAPARIN 30 MG/0.3 ML SYRINGE SQ SCH (09:00)
== END 2022-10-13 14:40 | disposition expired | DRG 870 ==
LOC: EC 19:45 → 3SCARD 22:09 → 4SSUR 10-02 14:06 → 2SICU 10-06 10:28
PROVIDERS: ADMIT Hospitalist; ATTEND Hospitalist
PROC: 5A1955Z Respiratory Ventilation, Greater than 96 Consecutive Hours (ICD-10-PCS; principal; 2022-10-06)
PROC: 0BH18EZ Insertion of Endotracheal Airway into Trachea, Via Natural or Artificial Opening Endoscopic (ICD-10-PCS; 2022-10-06)
PROC: 03HY32Z Insertion of Monitoring Device into Upper Artery, Percutaneous Approach (ICD-10-PCS; 2022-10-06)
PROC: 4A133B1 Monitoring of Arterial Pressure, Peripheral, Percutaneous Approach (ICD-10-PCS; 2022-10-06)
PROC: 4A133J1 Monitoring of Arterial Pulse, Peripheral, Percutaneous Approach (ICD-10-PCS; 2022-10-06)
PROC: 02HV33Z Insertion of Infusion Device into Superior Vena Cava, Percutaneous Approach (ICD-10-PCS; 2022-10-06)
PROC: 5A09357 Assistance with Respiratory Ventilation, Less than 24 Consecutive Hours, Continuous Positive Airway Pressure (ICD-10-PCS; 2022-10-06)
PROC: 0B9D8ZX Drainage of Right Middle Lung Lobe, Via Natural or Artificial Opening Endoscopic, Diagnostic (ICD-10-PCS; 2022-10-07)
PROC: 3E033XZ Introduction of Vasopressor into Peripheral Vein, Percutaneous Approach (ICD-10-PCS; 2022-10-07)
PROC: 3E0H76Z Introduction of Nutritional Substance into Lower GI, Via Natural or Artificial Opening (ICD-10-PCS; 2022-10-07)
DX: A41.01 Sepsis due to Methicillin susceptible Staphylococcus aureus (principal); J80 Acute respiratory distress syndrome; J10.08 Influenza due to other identified influenza virus with other specified pneumonia; J15.211 Pneumonia due to Methicillin susceptible Staphylococcus aureus; I21.A1 Myocardial infarction type 2; J44.0 Chronic obstructive pulmonary disease with (acute) lower respiratory infection; J44.1 Chronic obstructive pulmonary disease with (acute) exacerbation; D61.818 Other pancytopenia; B37.89 Other sites of candidiasis; N17.9 Acute kidney failure, unspecified; E87.20 Acidosis, unspecified; D69.3 Immune thrombocytopenic purpura; Z99.11 Dependence on respirator [ventilator] status; Z51.5 Encounter for palliative care; Z66 Do not resuscitate; K75.81 Nonalcoholic steatohepatitis (NASH); I11.0 Hypertensive heart disease with heart failure; I50.9 Heart failure, unspecified; E11.65 Type 2 diabetes mellitus with hyperglycemia; E03.9 Hypothyroidism, unspecified; D64.9 Anemia, unspecified; E66.9 Obesity, unspecified; F31.9 Bipolar disorder, unspecified; Z95.3 Presence of xenogenic heart valve; Z68.36 Body mass index [BMI] 36.0-36.9, adult; I08.3 Combined rheumatic disorders of mitral, aortic and tricuspid valves; D72.819 Decreased white blood cell count, unspecified; E78.5 Hyperlipidemia, unspecified; I48.0 Paroxysmal atrial fibrillation; G47.33 Obstructive sleep apnea (adult) (pediatric); K21.9 Gastro-esophageal reflux disease without esophagitis; E87.5 Hyperkalemia; G89.29 Other chronic pain; M48.061 Spinal stenosis, lumbar region without neurogenic claudication; M51.36 Other intervertebral disc degeneration, lumbar region; T38.0X5A Adverse effect of glucocorticoids and synthetic analogues, initial encounter; R19.7 Diarrhea, unspecified; Z87.891 Personal history of nicotine dependence; Z79.890 Hormone replacement therapy; Z79.899 Other long term (current) drug therapy; Z79.51 Long term (current) use of inhaled steroids; Z79.85 Long-term (current) use of injectable non-insulin antidiabetic drugs; Z91.041 Radiographic dye allergy status; Z91.040 Latex allergy status; Z91.048 Other nonmedicinal substance allergy status; Z86.2 Personal history of diseases of the blood and blood-forming organs and certain disorders involving the immune mechanism; Z28.311 Partially vaccinated for COVID-19; Z87.19 Personal history of other diseases of the digestive system; Z86.16 Personal history of COVID-19; Z87.01 Personal history of pneumonia (recurrent); Z82.5 Family history of asthma and other chronic lower respiratory diseases; Z86.79 Personal history of other diseases of the circulatory system
CPT/HCPCS: 31624; 36410; 36415; 71045; 71046; 76937; 80048; 80053; 80202; 81001; 82607; 82728; 82805; 83036; 83540; 83550; 83605; 83735; 83880; 84132; 84484; 85025; 85027; 85610; 85730; 87040; 87070; 87077; 87086; 87102; 87116; 87186; 87205; 87206; 87252; 87324; 87449; 87496; 87498; 87502; 87529; 87634; 87636; 87798; 88108; 88305; 89050; 93005; 93306; 93970; 94003; 94640; 94760; 96361; 96365; 96366; 96375; 99291